=== PATIENT | female | born 1940 | race Caucasian/White ===

== ENCOUNTER 2017-12-04 14:00 | Outpatient (RCR) | payer MEDICARE, SELFPAY ==
--- NOTE | 2017-11-26 12:33 | HP.PTEVAL_ITS ---
Patient's Visit Information LEOLA STARK is a 77 year old F referred to Physical Therapy by DO EUGENE Thakkar with a diagnosis of L shoulder pain. Date of Evaluation: 11/26/17 Physical Therapist: Damion Hardin PT, - Visit Plan Frequency: 1x/Week Duration: 1 Week Plan: Issue HEP consisting of L shoulder rot cuff ex's and scap stab ex's - Subjective Subjective: Pt reports her L shoulder has been sore for several years. Pt reports Pain had an insidious onset in nature. Pt reports no T or N in L UE. Pt had an xray which revealed calcific tendonitis. Pt reports her pain was severe prior to having a cortisone injection 2 weeks ago, whiich made a huge improvement with her pain. Pt is L hand dominant. Pt reports she had diff with sleep secondary to pain prior to having cortisone injection. Pt reports she has diff with attempting to reach behind her back. 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 0/10 pain at rest, 2/10 pain at worst - Pain L shoulder Pain Intensity (Out of 10): 0 Pain Intensity Range: 2 - Objective Neuro: B UE sensation is WNL to light touch. B bicepital reflex= 1/3. Palpation : Pt is tender on distal third of supraspinatus. No obvious deformity present. ROM: R shoulder flex= 150, abd= 155, ER= 70, IR WNL; L shoulder flex= 145, abd= 125, ER= 60, IR WNL. MMT: L shoulder ER= 4-/5. All other B UE MMT= 5/5. Special test: no pos results this - Goals Goal 1:: I with HEP 1-2 visits Goal Time Frame: 1 Week - Rehabilitation Potential Physical Therapy Diagnosis: L shoulder pain and weakness secondary to L shoulder calcific tendonitis Rehabilitation Potential: Good - Anticipated Interventions Patient/Client Instruction: Educate patient on: Condition, Plan of Care For the Purpose of:: To improve self management Therapeutic Exercise to Include: Strength training, Endurance training, Body mechanics, Postural training, Scapular Strength/Stabilization For the Purpose of:: To decrease pain, To increase ROM, To improve muscle performance and motor function Cryotherapy (ice pack, ice massage): Yes For the Purpose of:: To decrease pain Thank you for the opportunity to evaluate your patient. For Medicare and Medicare HMO plans, please review the plan of care and approve it. It will need to be FAXED BACK to us at [phone] for Medicare purposes. Please let me know if there are questions or concerns regarding this plan of care. Physician Signature: Date:
--- NOTE | 2018-01-14 15:37 | HP.PT.NRP ---
HP - Discharge Summary (1) - Patient Information LEOLA STARK was seen in my office for initial evaluation on 11/26/17. The following Plan of Care was established for this patient: Initial Frequency: 1x/Week Initial Duration: 1 Week - Anticipated Interventions Patient/Client Instruction: Educate patient on: Condition, Plan of Care For the Purpose of:: To improve self management Therapeutic Exercise to Include: Strength training, Endurance training, Body mechanics, Postural training, Scapular Strength/Stabilization For the Purpose of:: To decrease pain, To increase ROM, To improve muscle performance and motor function Cryotherapy (ice pack, ice massage): Yes For the Purpose of:: To decrease pain This patient was last seen in our office . Pertinent comments regarding their Physical therapy will appear below: Pt was last treated on the date of 12/04/17 for her shoulder pain. Pt has not returned through todays date, and is therefore discontinued at this time. At this point I will be discontinuing this patient from physical therapy. I would be happy to see this patient again in the future if found appropriate by the physician. Thank you! Damion Hardin, PT,
== END 2017-12-04 19:00 | disposition home or self-care (01) ==
LOC: PT 14:00
PROVIDERS: Family Provider Family Medicine; PCP Family Medicine; Visit Provider Orthopaedic Surgery
DX: M75.32 Calcific tendinitis of left shoulder (principal); R30.0 Dysuria; R32 Unspecified urinary incontinence
CPT/HCPCS: 87086; 87088; 97161; 97530

== ENCOUNTER → 2017-12-04 15:35 | Outpatient (CLI) | payer MEDICARE, SELFPAY | PROVIDERS: Visit Provider Obstetrics & Gynecology | DX: R30.0 Dysuria (principal); R32 Unspecified urinary incontinence | CPT/HCPCS: 87086 ==

== ENCOUNTER → 2017-12-13 12:53 | Outpatient (CLI) | payer MEDICARE, SELFPAY ==
--- NOTE | 2017-12-13 12:55 | HPBI_ITS ---
MAMMOGRAPHY - BILATERAL SCREENING REASON FOR EXAM: Female, 77 years old. Routine annual screening examination. PERTINENT HISTORY: Remote right breast biopsy. TECHNIQUE: Digital bilateral breast zachariah (3D mammographic acquisition) in the CC and MLO projections. 2-D mediolateral oblique (MLO) and craniocaudad (CC) views of both breasts were obtained. CAD: Full Field Digital Mammography with Computer Added Detection was performed. COMPARISON: Comparison is made with prior study dated November 15, 2016 and October 19, 2015. FINDINGS: Breast Composition: There are scattered areas of fibroglandular density. There are no dominant masses or suspicious calcifications. Stable benign-appearing bilateral axillary lymph nodes. No other significant abnormalities are identified. There has been no significant change since the prior study. HPBI/SCREENING MAMM (CAD), BILAT IMPRESSION: Stable bilateral screening mammogram. Yearly follow-up mammogram recommended. (A) ASSESSMENT CATEGORY: BIRADS Category 2: Benign. A letter regarding these results will be sent to the patient by the facility within 30 days. Approximately 10% of breast cancers are not detected by mammography. A normal mammogram should not delay biopsy of a clinically suspicious abnormality. [id number] Electronically Signed: Brett Wells MD at 14:50 EST Tel [phone], Service support ,
== END ==
PROVIDERS: Family Provider Family Medicine; PCP Family Medicine; Visit Provider Obstetrics & Gynecology
DX: Z12.31 Encounter for screening mammogram for malignant neoplasm of breast (principal)
CPT/HCPCS: 77063; 77067

== ENCOUNTER → 2018-08-12 11:29 | Outpatient (CLI) | payer MEDICARE, SELFPAY ==
[2018-08-12 12:42] LABS: Ferritin 92 ng/mL (8-252); Iron 68 ug/dL (50-170); Iron Binding Capacity,Total 265 ug/dL (250-450); PERCENT IRON SATURATION 25.7 % (15.0-55.0)
== END ==
PROVIDERS: Family Provider Family Medicine; PCP Family Medicine; Referring Provider Psychiatry & Neurology Neurology; Visit Provider Psychiatry & Neurology Neurology
DX: E61.1 Iron deficiency (principal); G25.81 Restless legs syndrome; R53.83 Other fatigue
CPT/HCPCS: 36415; 82728; 83540; 83550

== ENCOUNTER → 2018-11-01 10:30 | Outpatient (CLI) | payer MEDICARE, SELFPAY ==
[2018-11-01 12:40] LABS: BUN 22 mg/dL (7-18); Creatinine, Serum 0.78 mg/dL (0.55-1.02); EST Glomerular Filtration Rate 76 mL/min (>60); Glucose 81 mg/dL (74-106)
[2018-11-01 12:41] LABS: ALB/GLOB Ratio 1.1 RATIO (0.9-2.4); AST(SGOT) 21 U/L (15-37); Absolute Lymphocyte Count 1.22 X10^3/ul (0.83-4.51); Absolute Neutrophil Count 1.8 X10^3/uL (2.0-7.7); Alanine Aminotransfer ALT/SGPT 41 U/L (13-56); Albumin, Serum 3.5 g/dL (3.2-5.0); Alkaline Phosphatase 59 U/L (45-117); Anion Gap 7 (5-15); BUN/Creat Ratio 28.2 RATIO (10-20); Basophil# 0.06 X10^3/uL; Basophil% 1.6 % (0-1); Chloride 105 mmol/L (98-107); Cholesterol 251 mg/dL (200); Eosinophils% 2.7 % (0-5); Est Glom Filt Rate - Afr Amer 92 mL/min (>60); Globulin 3.3 g/dL (2.2-4.2); Hematocrit 36.9 % (37-47); Hemoglobin 11.9 g/dl (12.0-15.0); High Density Lipoprotein 64 mg/dL; Lymphocyte # 1.22 X10^3/ul (4.0); Lymphocyte % 33.2 % (19-41); Mean Corp Hgb Conc 32.2 g/gl (32-36); Mean Corpuscular Hgb 31.1 pg (27.0-32.0); Mean Corpuscular Volume 96.3 fL (81-99); Mean Platelet Vol. 9.7 fl (6.2-12.0); Monocyte% 13.6 % (0-10); Neutrophil # 1.79 X10^3/uL (2.7-7.7); Neutrophil % 48.9 % (47-70); Platelet Count 255 K/mm3 (150-450); Potassium 4.4 mmol/L (3.5-5.1); Protein, Total 6.8 g/dL (6.4-8.2); RBC Distribution Width CV 13.2 % (11.6-14.6); RBC Distribution Width SD 46.2 fl (35.1-43.9); Red Blood Count 3.83 M/mm3 (4.2-5.4); Sodium Level 142 mmol/L (136-145); Triglycerides 95 mg/dL; Very Low Density Lipoprotein 19 mg/dL (5-40); White Blood Count 3.7 K/mm3 (4.4-11.0)
[2018-11-01 12:44] LABS: POSITIVE COUNT NO; POSITIVE DIFFERENTIAL NO; POSITIVE MORPHOLOGY NO
== END ==
PROVIDERS: Family Provider Family Medicine; PCP Family Medicine; Visit Provider Family Medicine
DX: I10 Essential (primary) hypertension (principal); E78.5 Hyperlipidemia, unspecified
CPT/HCPCS: 36415; 80053; 80061; 85025

== ENCOUNTER → 2019-01-08 10:08 | Outpatient (CLI) | payer MEDICARE, SELFPAY ==
--- NOTE | 2019-01-08 10:09 | RAD_ITS ---
STUDY: X-RAY - LEFT HIP and one view pelvis REASON FOR EXAM: Female, 78 years old. Pain TECHNIQUE: 2 views of the hip and one view pelvis. COMPARISON: None. FINDINGS: Normal femoral head, neck, intertrochanteric region and visualized proximal femur. Normal acetabulum. Normal hip joint. Normal visualized superior and inferior pubic rami and ischial tuberosities. RAD/HIP, UNI W/ Pelvis 2-3 Views IMPRESSION: Normal x-ray examination of the hip and pelvis. Electronically Signed: Andrew Diaz MD at 15:13 EDT Tel , Service support ,
== END ==
PROVIDERS: Family Provider Family Medicine; PCP Family Medicine; Referring Provider Physician Assistant; Visit Provider Physician Assistant
DX: M25.552 Pain in left hip (principal)
CPT/HCPCS: 73502

== ENCOUNTER → 2019-01-14 14:38 | Outpatient (CLI) | payer MEDICARE, SELFPAY ==
--- NOTE | 2019-01-14 14:42 | BI_ITS ---
MAMMOGRAPHY - BILATERAL SCREENING 3-D MURTAZA SYNTHESIS REASON FOR EXAM: Female, 78 years old. Bilateral Screening 3-D tomosynthesis PERTINENT HISTORY: History of benign right breast biopsy at least 15 years ago. TECHNIQUE: 2-D mammograms and 3-D Murtaza synthesis of the breast (s) were performed. CAD was performed. COMPARISON: December 13, 2017, November 15, 2016 FINDINGS: The breast composition is almost entirely fat. Scattered benign calcifications are stable. There are stable normal-appearing lymph nodes. No dense spiculated masses or suspicious microcalcifications are identified. No architectural distortion is identified. There is no skin thickening or retraction. There has been no significant change since the prior study. BI/SCREENING MAMM (CAD), BILAT IMPRESSION: No mammographic signs of malignancy. Routine yearly mammograms recommended. ASSESSMENT CATEGORY: BIRADS Category 2: Benign. A letter regarding these results will be sent to the patient by the facility within 30 days. FOLLOW UP RECOMMENDATION: Yearly follow up mammogram recommended. (A) Approximately 10% of breast cancers are not detected by mammography. A normal mammogram should not delay biopsy of a clinically suspicious abnormality. Electronically Signed: Tej Caro MD at 12:44 EDT , Service support ,
--- NOTE | 2019-01-14 14:47 | BD_ITS ---
STUDY: DUAL ENERGY X-RAY ABSORPTIOMETRY / DXA REASON FOR EXAM: Female, 78 years old. The patient is postmenopausal. Loss of height. TECHNIQUE: Bone Mineral Density (BMD) measurements of lumbar spine and bilateral hips were obtained. COMPARISON: Comparison is made with prior study dated October 19, 2015. FINDINGS: Lumbar Spine (L1-L4): g/cm2 (1.101) / T-score (-0.7) / Z-score (1.1) Findings are suggestive of normal bone density with a low fracture risk. Left Femur Total: g/cm2 (0.919) / T-score (-0.7) / Z-score (1.1) Left Femoral Neck: g/cm2 (0.843) / T-score (-1.4) / Z-score (0.6) Right Femur Total: g/cm2 (0.924) / T-score (-0.7) / Z-score (1.2) Right Femoral Neck: g/cm2 (0.822) / T-score (-1.6) / Z-score (0.4) The T-Scores on the most recent prior examination were: Lumbar Spine (L1-L4): There has been improvement of bone density since the previous examination. Left Femur Total: which represents a worsening of 5.8%. Right Femur Total: which represents a worsening of 5.4%. BD/Dexa Bone Density Study IMPRESSION: The patient is considered osteopenic as outlined below according to World Pritesh Organization (WHO) criteria with a moderate fracture risk. There has been worsening of bone density since the previous examination. Reference Information: The T-score is the number of standard deviations above or below the standard which is normal for young adults at their peak bone mineral density. The World Health Organization (WHO) interprets the T-scores as follows: Above -1 Normal bone density Between -1 and -2.5 Osteopenia Equal to / or below -2.5 Osteoporosis As a practical clinical guideline, osteopenia may be graded as follows: Mild -1 through -1.5 Moderate -1.6 through -2.0 Severe -2.1 through -2.4 The Z-score is the number of standard deviations above or below age-matched controls. A Z-score of less than -1.5 would be considered abnormal. References: 1. NIH Osteoporosis and Related Bone Diseases http://www.osteo.org 2. International Society for Clinical Densitometry http://www.iscd.org 3. National Osteoporosis Foundation http://www.nof.org Electronically Signed: Brett Wells, at 10:37 EDT , Service support ,
== END ==
PROVIDERS: Family Provider Family Medicine; PCP Family Medicine; Referring Provider Obstetrics & Gynecology; Visit Provider Obstetrics & Gynecology
DX: Z12.31 Encounter for screening mammogram for malignant neoplasm of breast (principal); Z78.0 Asymptomatic menopausal state; Z13.820 Encounter for screening for osteoporosis
CPT/HCPCS: 77063; 77067; 77080

== ENCOUNTER → 2019-01-29 06:34 | Outpatient (CLI) | payer MEDICARE, SELFPAY ==
--- NOTE | 2019-01-29 10:34 | NEURO ---
NCS and/or EMG Patient Report Ordering Doctor: Alessandro English DATE OF SERVICE: 01/29/19 Is a left upper extremity EMG and nerve conduction study performed on this 78-year-old female with a history of abnormal sensations in her left fourth and fifth digits. She is healthy otherwise without a history of diabetes or neck pain. Left upper extremity sensory and motor nerve conduction studies performed. The median motor and sensory distal latencies are mild to moderately prolonged with preservation of amplitude and mild reduction in conduction velocity. The ulnar motor amplitude across the elbow is moderate to severely reduced with moderate to severe reduction in conduction velocity across the elbow. Radial sensory responses are normal. The median and ulnar F-wave latencies are mildly prolonged. Left upper extremity needle electromyography is performed. Muscles evaluated included the first dorsal interosseous, abductor pollicis brevis, brachioradialis, biceps, triceps and deltoid muscles. The left abductor pollicis brevis muscle did demonstrate mild increase in insertional activity and mild increase in motor unit amplitude as well as early recruitment. The left first dorsal interosseous muscle did also demonstrate increased insertional activity with 2+ fibrillation potentials and large motor units. All other muscles more approximately demonstrated normal insertional activity with absence of pathologic spontaneous activity, normal motor unit recruitment pattern and amplitude was detected otherwise. 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 2 mild to moderate apparently asymptomatic median neuropathy at the left wrist.
== END ==
PROVIDERS: Family Provider Family Medicine; PCP Family Medicine; Referring Provider Physician Assistant; Visit Provider Physician Assistant
DX: R20.0 Anesthesia of skin (principal)
CPT/HCPCS: 95886; 95910

== ENCOUNTER 2019-06-16 12:30 | Outpatient (RCR) | payer MEDICARE, SELFPAY ==
--- NOTE | 2019-06-16 11:31 | HP.PTEVAL_ITS ---
Patient's Visit Information LEOLA STARK is a 78 year old F referred to Physical Therapy by SUSY Sunshine with a diagnosis of L hip OA, piriformis syndrome. Date of Evaluation: 06/16/19 Physical Therapist: Bandar Campbell DPT - Visit Plan Frequency: 2x /Week Duration: 4-6 Weeks Plan: Start with HS, piriformis, IT band stretching (non painful). Add in US to piriformis region progress to core/hip stability exercises as tolerated. - Subjective Findings: Pt. is here today for her initial evaluation with diagnosis of L hip OA and piriformis syndrome. Pt. reports having pain on and off for years. She had an injection last year which did well. Pt. denies N/T in either LE. Pt. reports increased pain with walking and bending to potato picker objects. Pt. reports not doing any exercises at home. Pt. does have pain that goes down her whole leg at times It a dull ache. She has increased pain with steps, doing 1 step at a time. Pt. complains of increased pain, and increased stiffness as tiomes. Pt. is hopeful to reduce her symptoms in order to get back to all recreational activtiies without limiations. - Pain L hip Pain Intensity (Out of 10): 2 Pain Intensity Range: 0, 4 L LE Pain Intensity (Out of 10): 2 Pain Intensity Range: 1, 6 - Objective POSTURE: Pt. has normal postre in stance. Pt. has normal wt. shift between bilaterall LEs. Pt. has general sligth flexion in stance. PALPATION: Pt. has increased tenderness at L greater trochanter, and piriformis muscle belly. Pt. has no pain in her LLE distally. NEURO: normal throughout. ROM: LUMBAR SPINE: flexion min loss increase NW, ext mod loss increase NW, SB min loss bilat NE, rotaiton min loss bilat NE. Pt. has tight hip IR, IT band and HS bilaterally. MMT: pt. has general 4/5 strength throughout bilateral LEs. Pt. reports no major issues with MMT. GAIT: Pt ambulates with slight antaligic pattern on LLE stance phase. Pt. is able to complete stairs wtih step to pattern, increased pain with recirpocal pattern. Pt. uses 2 HR to complete. - Goals Goal 1:: Pt. to be I with HEP. Goal Time Frame: 4-6 Weeks Goal 2:: Pt. to have icnreased L hip ROM to full wthout increase in symptoms. Goal Time Frame: 4-6 Weeks Goal 3:: Pt. to have increased Left piriformis length, HS legnth and IT band length symmetrical to Right LE. Goal Time Frame: 4-6 Weeks Goal 4:: pt. to ambulate unlmited distances without increase in symptoms. Goal Time Frame: 4-6 Weeks Goal 5:: Pt. to negotiate steps without increase in symptoms allowing for increased quality of life. Goal Time Frame: 4-6 Weeks - Rehabilitation Potential Physical Therapy Diagnosis: Pt. has signs and symptoms consistent with L hip OA and piriformis syndrome. Pt. is stiff and weak in BLEs. Pt .would benefit from PT to icnrease strength and increased ROM of LLE mostly of her hip. Rehabilitation Potential: Good - Anticipated Interventions Patient/Client Instruction: Educate patient on: Condition, Plan of Care, Risk Factors, Benefits of Fitness Program For the Purpose of:: To foster healthy habits, To improve decision making, To facilitate caregiver knowledge, To improve self management, To prevent re- injury, To improve ability to perform tasks related to life management, To improve tolerance to ADL's Therapeutic Exercise to Include: Strength training, Power training, Endurance training, Balance training, Body mechanics, Postural training, Flexibilty training, Passive ROM, Active ROM, Dynamic Lumbar Stabilization For the Purpose of:: To decrease pain, To decrease swelling/inflammation, To increase ROM, To improve nutrient delivery to tissue, To increase oxygenation perfusion, To improve muscle performance and motor function, To improve ability to perform ADL's, To improve gait and locomotor functions, To improve health of tissue, To decrease soft tissue restriction, To increase flexibility/ROM, To improve endurance Manual Therapy Techniques to Include: Mobilization, Passive ROM, Functional dry needling, Soft tissue mobilization For the Purpose of:: To decrease pain, To decrease swelling/inflammation, To increase ROM, To improve nutrient delivery to tissue Cryotherapy (ice pack, ice massage): Yes Thermo therapy (hot pack): Yes Ultrasound (thermal/non thermal): Yes For the Purpose of:: To decrease swelling/inflammation, To increase ROM, To improve nutrient delivery to tissue, To increase oxygenation perfusion Thank you for the opportunity to evaluate your patient. For Medicare and Medicare HMO plans, please review the plan of care and approve it. It will need to be FAXED BACK to us at [phone] for Medicare purposes. For Medicare only, by signing this I certify the plan of care. Please let me know if there are questions or concerns regarding this plan of care. Physician Signature: Date:
--- NOTE | 2019-12-01 09:14 | HP.PTDCNRP_ITS ---
HP - Discharge Summary (1) - Patient Information LEOLA STAKR was seen in my office for initial evaluation on 06/02/19. The following Plan of Care was established for this patient: Initial Frequency: 2x /Week Initial Duration: 4-6 Weeks - Anticipated Interventions Patient/Client Instruction: Educate patient on: Condition, Plan of Care, Risk Factors, Benefits of Fitness Program For the Purpose of:: To foster healthy habits, To improve decision making, To facilitate caregiver knowledge, To improve self management, To prevent re- injury, To improve ability to perform tasks related to life management, To improve tolerance to ADL's Therapeutic Exercise to Include: Strength training, Power training, Endurance training, Balance training, Body mechanics, Postural training, Flexibilty traini ng, Passive ROM, Active ROM, Dynamic Lumbar Stabilization For the Purpose of:: To decrease pain, To decrease swelling/inflammation, To increase ROM, To improve nutrient delivery to tissue, To increase oxygenation perfusion, To improve muscle performance and motor function, To improve ability to perform ADL's, To improve gait and locomotor functions, To improve health of tissue, To decrease soft tissue restriction, To increase flexibility/ROM, To improve endurance Manual Therapy Techniques to Include: Mobilization, Passive ROM, Functional dry needling, Soft tissue mobilization For the Purpose of:: To decrease pain, To decrease swelling/inflammation, To increase ROM, To improve nutrient delivery to tissue Cryotherapy (ice pack, ice massage): Yes Thermo therapy (hot pack): Yes Ultrasound (thermal/non thermal): Yes For the Purpose of:: To decrease swelling/inflammation, To increase ROM, To improve nutrient delivery to tissue, To increase oxygenation perfusion This patient was last seen in our office 06/16/19. Pertinent comments regarding their Physical therapy will appear below: PT. was seen her her L hip pain. Pt. was doing well. Pt. has not been seen in several months and will be DC from PT at this point in time. At this point I will be discontinuing this patient from physical therapy. I would be happy to see this patient again in the future if found appropriate by the physician. Thank you! Bandar Campbell, JULIAT
== END 2019-06-16 19:00 | disposition home or self-care (01) ==
LOC: PT 12:30
PROVIDERS: Family Provider Family Medicine; PCP Family Medicine; Referring Provider Physician Assistant; Visit Provider Physician Assistant
DX: M16.12 Unilateral primary osteoarthritis, left hip (principal); G57.02 Lesion of sciatic nerve, left lower limb
CPT/HCPCS: 97110; 97161

== ENCOUNTER → 2019-07-03 13:15 | Outpatient (CLI) | payer MEDICARE, SELFPAY ==
[2019-07-03 12:54] VITALS: BMI 26.1
--- NOTE | 2019-07-03 13:17 | RAD_ITS ---
STUDY: X-RAY - LUMBAR SPINE REASON FOR EXAM: Female, 79 years old. Back pain. TECHNIQUE: 5 view(s) of the lumbar spine were obtained. COMPARISON: None FINDINGS: Generalized osteopenia. Normal lumbar lordosis. There is no substantial scoliosis. There is a normal alignment of the vertebrae. Normal vertebral bodies and endplates. Mild intervertebral disc space narrowing in the lower thoracic and upper lumbar spine. Minimal generalized facet sclerosis. The soft tissue structures are unremarkable. RAD/L/S Spine Min 4 Views IMPRESSION: Osteopenia with mild lower thoracic and upper lumbar spondylosis. No acute finding. Electronically Signed: Tej Caor MD at 13:37 EDT , Service support ,
== END ==
PROVIDERS: Family Provider Family Medicine; PCP Family Medicine; Referring Provider Orthopaedic Surgery; Visit Provider Orthopaedic Surgery
DX: M25.552 Pain in left hip (principal)
CPT/HCPCS: 72110

== ENCOUNTER → 2019-07-15 13:58 | Outpatient (CLI) | payer MEDICARE, SELFPAY ==
[2019-07-15 13:46] VITALS: BMI 26.1
--- NOTE | 2019-07-15 14:00 | RAD_ITS ---
STUDY: X-RAY - LEFT HAND REASON FOR EXAM: Trigger middle finger. TECHNIQUE: 3 view(s) of the hand. COMPARISON: None. FINDINGS: There is osteopenia. Normal radiocarpal articulation. Normal distal radioulnar joint. Normal visualized carpal bones. Normal carpal articulations There is moderate to severe joint space narrowing of the carpometacarpal articulation of the thumb. Normal second through fifth carpometacarpal joints. Normal metacarpi. Normal metacarpophalangeal joint of the thumb. There is mild space narrowing of the interphalangeal joint of the thumb. Normal proximal and distal phalanges of the thumb. Normal metacarpophalangeal joints of the second through fifth fingers. There is mild space narrowing of the distal interphalangeal joints of the second through fifth fingers and third and fourth proximal interphalangeal joints. Normal phalanges of the second through fifth fingers. The soft tissue structures are unremarkable. RAD/Hand Min 3 Views IMPRESSION: Osteoarthritis. Electronically Signed: Laron Martin MD at 13:14 EDT Tel , Service support ,
== END ==
PROVIDERS: Family Provider Family Medicine; PCP Family Medicine; Referring Provider Orthopaedic Surgery; Visit Provider Orthopaedic Surgery
DX: M79.645 Pain in left finger(s) (principal)
CPT/HCPCS: 73130

== ENCOUNTER 2019-07-23 06:58 | Day surgery (SDC) | payer MEDICARE, SELFPAY ==
[2019-07-15 13:46] VITALS: BMI 26.1
--- NOTE | 2019-07-18 10:51 | HP_ITS ---
I have re-examined the patient. There are no clinical changes since date of exam. Intake Vital Signs 07/15/19 Body Mass Index (BMI) 26.1 Intake Visit Reasons: Lt hand/lt shoulder Allergies No Known Allergies Allergy (Verified 11/28/18 11:28) Medications lisinopril 5 mg tablet 5 mg PO DAILY #90 tab 07/03/19 [History Confirmed 07/18/19] Amitriptyline HCl [Elavil] 25 mg PO QHS 07/18/19 [History Confirmed 07/18/19] Biotin 3 mg PO BID 07/18/19 [History Confirmed 07/18/19] Calcium Carbonate/Vitamin D3 [Calcium 600 + Vit D 400 Tablet] 1 ea PO DAILY 07/18/19 [History Confirmed 07/18/19] Ezetimibe [Zetia] 10 mg PO DAILY 07/18/19 [History Confirmed 07/18/19] Mv-Min/Iron/Folic/Calcium/Vitk [Women's Daily Formula Tablet] 1 ea PO DAILY 07/18/19 [History Confirmed 07/18/19] Pramipexole Di-HCl [Pramipexole Dihydrochloride] 0.25 mg PO QHS 07/18/19 [History Confirmed 07/18/19] Sumatriptan Succinate [Imitrex] 50 mg PO PRN PRN 07/18/19 [History Confirmed 07/18/19] Turmeric Root Extract [Turmeric] 500 mg PO DAILY 07/18/19 [History Confirmed 07/18/19] PFSH Medical History (Updated 11/06/17 @ 09:11 by Dawn Carreon) Back problem (Acute) Arthritis (Chronic) Hyperlipidemia (Chronic) Hypertension (Chronic) Migraines (Chronic) Osteopenia (Chronic) Seasonal allergies (Chronic) Surgical History (Updated 11/06/17 @ 09:12 by Dawn Carreon) H/O breast biopsy (Inactive) H/O tubal ligation (Inactive) S/P LEEP (loop electrosurgical excision procedure) (Inactive) Family History (Updated 11/06/17 @ 09:13 by Dawn Carreon) Father Myocardial infarction Brother Pancreatic cancer Sister Lung cancer Social History (Updated 07/18/19 @ 10:51 by Talita Pinto DO) Smoking Status: Never smoker HPI Lt hand/lt shoulder: Surgical H&P: Yes Details: Parts of this documentation were recorded by a scribe, this documentation accurately reflects the service provided and the decisions made by me, Talita Pinto DO 07/15/19 [id number]. LEOLA STARK is a 79 year old F here today for left shoulder and left middle finger pain. Patient has had a steroid injection in 10/2018 and states this was effective for about 8 months and she wishes to have another left subacromial injection. Denies numbness, tingling or other associated symptoms. Patient has locking and triggering of her left middle finger. Patient denies any previous tx for her finger today. ROS Const Reports system reviewed and no additional complaints, except as docu Eyes Reports system reviewed and no additional complaints, except as docu ENT Reports system reviewed and no additional complaints, except as docu Card Reports system reviewed and no additional complaints, except as docu Resp Reports system reviewed and no additional complaints, except as docu GI Reports system reviewed and no additional complaints, except as docu Musc Reports as per HPI Skin/Breast Reports system reviewed and no additional complaints, except as docu Neuro Yes system reviewed and no additional complaints, except as docu Psych Reports system reviewed and no additional complaints, except as docu Endo Reports system reviewed and no additional complaints, except as docu Bulmaro/Lymph Reports system reviewed and no additional complaints, except as docu Aller/Immun Reports system reviewed and no additional complaints, except as docu Ortho Exam Right Wrist/Hand Skin/Wound: Yes Swelling Left Wrist/Hand Skin/Wound: Yes Swelling A1 funmi trigger: Yes Left Shoulder Testing: Yes Hawkin's, No AROM-Forward Elevation 0-180, No AROM-External Rotation at side 0-60 No rales rhonchi or wheezing, no abdominal pain, no audible bruits Office Procedures Kenalog 40 mg/mL suspension for injection (triamcinolone acetonide) 80 mg intra- articular ONCE Injections Yes Subacromial Injection Left Details: Obtained consent for injection. Under sterile conditions, injected the patients left subacromial injection with a 10cc cocktail of 8cc bupivacaine and 2cc kenalog. The patient tolerated the injection well without any noted complication. Patient should call our office if redness develops, pain worsens or if they have any concerns. Office Meds Kenalog Performing Provider: Talita Pinto DO Administered by: Theo Hernández on 07/15/19 14:20 Dose Route Admin Location Lot Number Expiration Date NDC [employer] 80 mg intra-articular left subacromial jt [id number] 12/28/19 0490-0941-07 [facility] Assessment & Plan Problems 1. Trigger finger, left middle finger M65.332 2. Impingement syndrome, shoulder, left M75.42 Plan X-rays were reviewed. There is no obvious fracture, dislocation, or lucency noted. Explained that she has a trigger finger of the left middle finger and now has limited rom of the finger, her best treatment option is an A1 funmi release. Reviewed the risks and benefits of steroid injection and patient elects to proceed for the left shoulder as well as she continues to have relief with conservative care. Reviewed the pre-operative plans with the patient. Risks and benefits of the procedure were fully explained, including but not limited to infection, neurovascular injury, continued pain, arthritis, stiffness, need for further surgery, re-injury, DVT, PE, general risks of anesthesia, and loss of limb or life. The patient understands all the risks and does wish to proceed with written consent. Follow up postop or sooner if pain, swelling, numbness or associated symptoms, or concerns develop. All questions answered. Patient in agreement of plan. Orders Orders: Ortho Injections 07/15/19 M65.332 Hand Min 3 Views 07/15/19 M79.645 Medications Discontinued: Kenalog (triamcinolone acetonide) Discontinued Reason: Office Medication has been Documented as given 80 mg (2 mL) intra-articular ONCE 2 mL 0RF NS M65.332 Coding Level of Care Code Off vis,est,level 4 Diagnoses Trigger finger, left middle finger M65.332 Impingement syndrome, shoulder, left M75.42 Additional Codes oven loader.sub ([id number]) 07/18/19 1051 <Electronically signed by Talita sky DO> Date _ Talita Pinto DO
[2019-07-23 07:28] VITALS: BP 125/69; PULSE 83; RESP 16; O2SAT 100; BMI 27.4
[2019-07-23] MEDS: Lactated Ringers 1,000 ML 100 ML IV (07:39)
[2019-07-23] MEDS: Cefazolin 2 GM in 0.9% Normal Saline 100 ML IV (08:32)
[2019-07-23] MEDS: Mupirocin Ointment 22gm Tube 1 APPLIC (08:56)
[2019-07-23 09:11] VITALS: BP 125/69; BP 128/69; PULSE 78; RESP 16; TEMP 36.1; O2SAT 99
[2019-07-23 09:15] VITALS: BP 125/69; BP 134/69; PULSE 80; RESP 16; O2SAT 99
[2019-07-23 09:20] VITALS: BP 125/69; BP 130/83; PULSE 72; RESP 16; O2SAT 99
[2019-07-23 09:25] VITALS: BP 125/69; BP 132/70; PULSE 70; RESP 16; TEMP 36.4; O2SAT 100
--- NOTE | 2019-07-23 09:42 | DCINST_ITS ---
Discharge Diet: No Restrictions - may drive, keep incision cdi, Discharge Activity: May Drive - keep incision clean and dry, may use hand as tolerated. follow up in 2 weeks, call with concerns May shower in (days): 1 Ice area for (Minutes): 20 - Every hour while awake. Weight Bearing Status: Weight bearing as tolerated Keep extremity elevated above heart level: Operative Extremity Call your doctor if your incision/area has: Continuous Slow Oozing, Sudden Increased Bleeding, Increased Pain/ Swelling, Increased Redness, Foul Smelling Discharge Call your doctor if you observe: Fever of 101 or Higher, Coldness, Increased Pain, Numbness or Tingling, Change in Color, Calf discomfort Allergies/Adverse Reactions: Allergies No Known Allergies Allergy (Verified 11/28/18 11:28) Medications to take at Discharge lisinopril 5 mg tablet 5 mg PO DAILY #90 tab 07/03/19 Amitriptyline HCl [Elavil] 25 mg PO QHS 07/18/19 Biotin 3 mg PO BID 07/18/19 Calcium Carbonate/Vitamin D3 [Calcium 600 + Vit D 400 Tablet] 1 ea PO DAILY 07/18/19 Ezetimibe [Zetia] 10 mg PO DAILY 07/18/19 Mv-Min/Iron/Folic/Calcium/Vitk [Women's Daily Formula Tablet] 1 ea PO DAILY 07/18/19 Pramipexole Di-HCl [Pramipexole Dihydrochloride] 0.25 mg PO QHS 07/18/19 Sumatriptan Succinate [Imitrex] 50 mg PO PRN PRN 07/18/19 Turmeric Root Extract [Turmeric] 500 mg PO DAILY 07/18/19 Primary Care Physician: Carlos Tse DO [Primary Care Provider] - Test Results: Test results from this visit will be discussed in further detail at your follow- up appointment, if applicable. Please Follow Up With: Talita Pinto DO - [phone]
--- NOTE | 2019-07-23 09:43 | OP.PCM_ITS ---
Report of Operation Date of Procedure: 07/23/19 Pre-Operative Diagnosis: left middle trigger finger Post-Operative Diagnosis: same Surgery/Procedure Performed:: left middle finger a1 funmi release Type of Anesthesia:: Fred Paez Anesthesiologist: Michele Bolden Fluids Replaced: 500cc lr Description of Procedure: Preop note Next Patient is a 79-year-old male with continued triggering of her right middle finger. X-rays negative. Patient risk benefits and alternatives were discussed with patient and family. Risks including but not limited to blood loss, blood clot, infection, neurovascular, failure procedure, loss of life and loss of limb. Patient is aware like proceed with right middle finger A1 funmi release. Operative note Patient seen and examined preoperative he will holding area. Right hand was marked. Patient brought to the operating placed supine on the operating table. Signed, anesthesia, antibiotics were public relations account executive.. Your block was initiated. We then marked out our incision for A1 funmi release of the MP joint of the left middle finger. Timeout was performed. The block was working in the mid fifth incision with a 15 blade down to the skin subcuticular layer with tenotomies in the level of the A1 funmi which was released entirely proximally distally we then brought the tendon out of the incision and flex and extend in the tendon to ensure that there was no further catching which there was not. We then irrigated the incision with copious muscle sterile saline the incision was closed with interrupted 4-0 nylon stitches sterile dressings were applied. Tourniquet was deflated for a total working time of 5 minutes. Patient tolerated procedure well there were no complication transferred recovery room in stable condition next Postoperative note Keep incision clean dry and intact next Follow-up in 2 weeks Call with increased pain numbness tingling of the issues arises Valeria disclaimer
[2019-07-23 10:02] VITALS: BP 125/69
== END 2019-07-23 10:14 | disposition home or self-care (01) ==
LOC: SDC 06:59 → AC 07:00
PROVIDERS: Family Provider Family Medicine; PCP Family Medicine; Referring Provider Orthopaedic Surgery; Visit Provider Orthopaedic Surgery
PROC: (CPT 26055; principal; 2019-07-23 08:40)
DX: M65.332 Trigger finger, left middle finger (principal); M75.42 Impingement syndrome of left shoulder; E78.5 Hyperlipidemia, unspecified; I10 Essential (primary) hypertension; M85.80 Other specified disorders of bone density and structure, unspecified site; M19.90 Unspecified osteoarthritis, unspecified site; G43.909 Migraine, unspecified, not intractable, without status migrainosus
CPT/HCPCS: 01810; 26055; J7120; J2405

== ENCOUNTER → 2019-12-11 12:44 | Outpatient (CLI) | payer MEDICARE, SELFPAY ==
[2019-12-11 12:38] VITALS: BMI 27.4
--- NOTE | 2019-12-11 12:45 | RAD_ITS ---
STUDY: X-RAY - CERVICAL SPINE REASON FOR EXAM: Female, 79 years old. Neck pain. TECHNIQUE: 5 view(s) of the cervical spine were obtained. COMPARISON: None FINDINGS: Generalized osteopenia. Normal anterior atlantoaxial articulation. Normal odontoid process. Increased lordosis. Normal vertebral bodies and endplates. Intervertebral disc space narrowing at C4-5, C5-6 and C6-7 with small osteophytes. Minimal anterior bony neural foraminal encroachment at C4-5 and C5-6 bilaterally. Diffuse uncovertebral and facet sclerosis. The soft tissue structures are unremarkable. RAD/Cerv Spine 4 or 5 Views IMPRESSION: Osteopenia with cervical spondylosis as described. No acute finding. Electronically Signed: Tej Caro MD at 19:15 EST , Service support ,
--- NOTE | 2019-12-11 12:45 | RAD_ITS ---
STUDY: X-RAY - LEFT HUMERUS REASON FOR EXAM: Female, 79 years old. Pain in mid humerus radiating to shoulder. TECHNIQUE: 2 view(s) of the humerus. COMPARISON: None. FINDINGS: Generalized osteopenia. Normal visualized humerus. Mild arthrosis of the glenohumeral joint. Arthrosis of the acromioclavicular joint. There is no demonstrated soft tissue abnormality. RAD/Humerus min 2 Views IMPRESSION: Osteopenia with osteoarthritic changes. No acute finding. Electronically Signed: Tej Caro MD at 19:17 EST , Service support ,
== END ==
PROVIDERS: PCP Family Medicine; Referring Provider Orthopaedic Surgery; Visit Provider Orthopaedic Surgery
DX: M54.2 Cervicalgia (principal); M79.602 Pain in left arm
CPT/HCPCS: 72050; 73060

== ENCOUNTER → 2019-12-29 16:30 | Outpatient (CLI) | payer MEDICARE, SELFPAY ==
[2019-12-11 12:38] VITALS: BMI 27.4
--- NOTE | 2019-12-29 16:31 | MRI_ITS ---
STUDY: MRI LEFT SHOULDER REASON FOR EXAM: Left shoulder pain, decreased strength and limited range of motion for 6 weeks, no specific injury. TECHNIQUE: Standardized fat and water weighted pulse sequences were obtained in all 3 orthogonal planes. COMPARISON: Radiographs of the humerus with 12/11/2019 and shoulder 12/28/2016. FINDINGS: There is a full-thickness tear of the supraspinatus and infraspinatus tendons retracted approximately 2.3 cm to the level of the acromioclavicular joint (T2 coronal images 6-13). There is mild subscapularis tendinosis (proton density axial image 12). Normal teres minor tendon. There is atrophy with partial fat replacement of the supraspinatus muscle (T2 axial image 4). There is atrophy with partial fat replacement of the infraspinatus muscle (T2 axial image 12). Normal subscapularis muscle. Normal teres minor muscle. Normal glenohumeral articulation. There is mild superior migration humeral head secondary to the retracted rotator cuff tear. There is a small bone contusion of the inferior medial aspect of the humeral head (T2 coronal images 10, 11). Normal biceps labral complex. Normal intracapsular long biceps tendon. Normal labrum. Normal capsulo- ligamentous complex. There is acromioclavicular arthrosis with capsular thickening (T2 sagittal image 9). There is a Type II morphology (curved), with a neutral orientation. There is a small volume of subacromial-subdeltoid bursal fluid. Normal visualized coracohumeral and coracoacromial ligaments. Normal deltoid muscle. Normal trapezius muscle. MRI/Upper Ext Joint Only(Routine) IMPRESSION: Full-thickness tear of the supraspinatus and infraspinatus tendons. Mild subscapularis tendinosis. Atrophy of the supraspinatus and infraspinatus muscles. Small bone contusion of the humeral head. Acromioclavicular arthrosis. Small volume of subacromial-subdeltoid bursal fluid. Electronically Signed: Laron Martin MD at 10:24 EST Tel , Service support ,
== END ==
PROVIDERS: PCP Family Medicine; Referring Provider Orthopaedic Surgery; Visit Provider Orthopaedic Surgery
DX: M75.32 Calcific tendinitis of left shoulder (principal)
CPT/HCPCS: 73221

== ENCOUNTER → 2020-03-29 10:16 | Outpatient (CLI) | payer MEDICARE, SELFPAY ==
[2020-01-01 15:10] VITALS: BMI 27.4
[2020-03-29 12:29] LABS: Absolute Lymphocyte Count 1.47 X10^3/uL (0.83-4.51); Absolute Neutrophil Count 3.4 X10^3/uL (2.0-7.7); Basophil# 0.07 X10^3/uL; Basophil% 1.2 % (0-1); Eosinophil# 0.25 X10^3/uL; Eosinophils% 4.3 % (0-5); Hematocrit 35.3 % (37-47); Hemoglobin 11.5 g/dL (12.0-15.0); Lymphocyte # 1.47 X10^3/ul (4.0); Lymphocyte % 25.3 % (19-41); Mean Corp Hgb Conc 32.6 g/dL (32-36); Mean Corpuscular Hgb 31.7 pg (27.0-32.0); Mean Corpuscular Volume 97.2 fL (81-99); Monocyte# 0.56 X10^3/uL; Monocyte% 9.6 % (0-10); NRBC Flagged by Analyzer 0 % (0-5); Neutrophil # 3.44 X10^3/uL (2.7-7.7); Neutrophil % 59.3 % (47-70); Platelet Count 304 K/mm3 (150-450); RBC Distribution Width CV 12.8 % (11.6-14.6); RBC Distribution Width SD 45.3 fl (35.1-43.9); Red Blood Count 3.63 M/mm3 (4.2-5.4); White Blood Count 5.8 K/mm3 (4.4-11.0)
[2020-03-29 13:22] LABS: ALB/GLOB Ratio 0.9 RATIO (0.9-2.4); AST(SGOT) 35 U/L (15-37); Alanine Aminotransfer ALT/SGPT 56 U/L (13-56); Albumin, Serum 3.4 g/dL (3.2-5.0); Alkaline Phosphatase 102 U/L (45-117); Anion Gap 6 (5-15); BUN 14 mg/dL (7-18); Calcium,Total 9.2 mg/dL (8.5-10.1); Chloride 105 mmol/L (98-107); Cholesterol 220 mg/dL (200); Creatinine, Serum 0.74 mg/dL (0.55-1.02); EST Glomerular Filtration Rate 81 mL/min (>60); Est Glom Filt Rate - Afr Amer 98 mL/min (>60); Globulin 3.9 g/dL (2.2-4.2); Glucose 89 mg/dL (74-106); High Density Lipoprotein 53 mg/dL; Potassium 3.8 mmol/L (3.5-5.1); Protein, Total 7.3 g/dL (6.4-8.2); Sodium Level 139 mmol/L (136-145); Triglycerides 146 mg/dL; Very Low Density Lipoprotein 29 mg/dL (5-40)
== END ==
PROVIDERS: PCP Family Medicine; Visit Provider Family Medicine
DX: I10 Essential (primary) hypertension (principal); E78.5 Hyperlipidemia, unspecified; Z78.9 Other specified health status
CPT/HCPCS: 36415; 80053; 80061; 85025

== ENCOUNTER → 2020-04-13 10:08 | Outpatient (CLI) | payer MEDICARE, SELFPAY ==
[2020-01-01 15:10] VITALS: BMI 27.4
--- NOTE | 2020-04-13 10:09 | MRI_ITS ---
STUDY: MRI UPPER EXTREMITY LEFT HUMERUS WITHOUT CONTRAST REASON FOR EXAM: Left humeral pain, especially lateral and posterior with movement. TECHNIQUE: Standardized fat and water weighted pulse sequences were obtained in all 3 orthogonal planes. COMPARISON: MRI images of the shoulder 12/29/2019 and radiographs 12/11/2019. FINDINGS: There is edema in the subcutis adipose space posterior to the olecranon (inversion recovery axial images 43, 44). There is no demonstrated solid, cystic, or lipomatous mass within the subcutaneous adipose space. Normal visualized muscles and fascia of the upper arm. Normal visualized neurovascular bundles. Normal humerus. There is a rotator cuff tear (inversion recovery coronal images 10-15). MRI/Upper Ext/No Jt/ wo IMPRESSION: Rotator cuff tear. No demonstrated muscle strain of the upper arm. Electronically Signed: Laron Martin MD at 11:18 EDT Tel , Service support ,
== END ==
PROVIDERS: PCP Family Medicine; Referring Provider Orthopaedic Surgery; Visit Provider Orthopaedic Surgery
DX: M62.89 Other specified disorders of muscle (principal); S46.012D Strain of muscle(s) and tendon(s) of the rotator cuff of left shoulder, subsequent encounter
CPT/HCPCS: 73218

== ENCOUNTER 2020-06-30 11:30 | Outpatient (RCR) | payer MEDICARE, SELFPAY ==
[2020-04-27 15:14] VITALS: BMI 27.4
--- NOTE | 2020-05-04 12:08 | HP.PTEVAL_ITS ---
Patient's Visit Information LEOLA STARK is a 79 year old F referred to Physical Therapy by Dr. Talita Pinto DO with a diagnosis of L RTC tear. Date of Evaluation: 05/04/20 Physical Therapist: LELIA Hair - Visit Plan Frequency: 2-3x /Week Duration: 6 Weeks Plan: 2-3X/ week for 6 weeks for L shoulder modalities (US and E-stim) to decrease pain and inflammation, PROM L shoulder, AAROM L shoulder, AROM L shoulder, postural and scapular sctrength with HEP - Subjective L arm and she is L handed. She reported that she had an x-ray and MRI of the shoulder and arm. She reports that she does not have the strength to lift her arm. said she is not sure she would do RC surgery on her type of tear. SHe has no neck pain. This started a few months ago. She wakes up if she sleeps on the Left side.... She can not sleep on the L side much. She has problems reaching up to her hair and to do her bra. She used to get cortizone shots for her shoulder area but this is different than what she is used to feeling. She has a lot of calcium deposits in there. The last shot did nothing for her. Reaching is bad and she can not lift anything heavy with that arm and she feels better if she keeps her arm next to her body. It aches in the evening.... but it hurts mostly with activity. - Pain L arm pain Pain Intensity (Out of 10): 3 - Objective Jewel Supervisor strength: Pt is L handed: 31# R. 24# L. R shoulder AROM:WFL flexion and ABD and IR, ER 85. L shoulder AROM: 52 flexion, 62 abd, IR to L5, ER 41. +HK for pain... + Empty can in reduced AROM plane for pain and weakness. Palpation: Tender Infraspinatus tendon and anterior shoulder. Posture: Sits with rounded shoulders. PROM L shoulder to approx 80 degrees abd, 90 degrees flexion, and approx 45 degrees ER - Goals Goal 1:: I HEP Goal Time Frame: 4-6 Weeks Goal 2:: Decrease L shoulder pain to 1/10 with ADL's Goal Time Frame: 4-6 Weeks Goal 3:: Increase L shoulder AROM to 170 degrees elevation Goal Time Frame: 4-6 Weeks Goal 4:: Increase L shoulder strength by 1/2 muscle grade (L shoulder AROM: 52 flexion, 62 abd, IR to L5, ER 41). Goal Time Frame: 4-6 Weeks - Rehabilitation Potential Rehabilitation Potential: Good - Anticipated Interventions Patient/Client Instruction: Educate patient on: Condition, Plan of Care For the Purpose of:: To decrease pain, To decrease swelling/inflammation, To increase ROM, To improve nutrient delivery to tissue, To improve muscle performance and motor function, To improve ability to perform ADL's, To increase tolerance to activity/condition/position, To improve performance and independence with ADL's, To decrease level of supervision to perform tasks, To improve ability of physical actions for home/community/work/leisure, To improve health of tissue, To decrease soft tissue restriction, To increase flexibility/ROM Therapeutic Exercise to Include: Strength training, Postural training, Flexibilty training, Passive ROM, Active ROM, Scapular Strength/Stabilization For the Purpose of:: To decrease pain, To decrease swelling/inflammation, To increase ROM, To improve nutrient delivery to tissue, To improve muscle performance and motor function, To improve ability to perform ADL's, To increase tolerance to activity/condition/position, To improve performance and independence with ADL's, To improve gait and locomotor functions, To decrease soft tissue restriction, To increase flexibility/ROM Manual Therapy Techniques to Include: Passive ROM, Soft tissue mobilization For the Purpose of:: To decrease pain, To increase ROM, To improve nutrient delivery to tissue IF ES: Yes Cryotherapy (ice pack, ice massage): Yes Ultrasound (thermal/non thermal): Yes For the Purpose of:: To decrease pain, To decrease swelling/inflammation, To improve nutrient delivery to tissue Thank you for the opportunity to evaluate your patient. For Medicare and Medicare HMO plans, please review the plan of care and approve it. It will need to be FAXED BACK to us at [phone] for Medicare purposes. For Medicare only, by signing this I certify the plan of care. Please let me know if there are questions or concerns regarding this plan of care. Physician Signature: Date:
--- NOTE | 2020-06-14 11:01 | HP.PTREVAL_ITS ---
Dr. Talita Pinto, DO, It has been my pleasure to treat LEOLA STARK over the last 11 visits for L RTC tear. Please see the progress note below for an update on the physical therapy plan of care! Subjective: She still is favoring it. sometimes just sitting still she will get a tired feeling in her arm with just sitting there. If she goes out too far it bothers her. She feels that if we continue PT she would make some additional improvement. She also fees clicking in her shoulder. Night discomfort is not as bad, especially when on her L side but it is better and has not noticed it as much lately. Objective/Function: L shld flex and abd 70 degrees and ER 40 degrees and IR to L1. MMT.... decreased still due to decrease AROM Plan Plan: Start to give HEP with bands for HOME and add stretching in conjunction with pulleys to gain more ROM. 2-3X/ week for 6 weeks for L shoulder modalities (US and E-stim) to decrease pain and inflammation, PROM L shoulder, AAROM L shoulder, AROM L shoulder, postural and scapular sctrength with HEP Goals Goal 1:: I HEP Goal Time Frame: 4-6 Weeks Goal Progress: Progressing Goal 2:: Decrease L shoulder pain to 1/10 with ADL's Goal Time Frame: 4-6 Weeks Goal Progress: Progressing Goal 3:: Increase L shoulder AROM to 170 degrees elevation Goal Time Frame: 4-6 Weeks Goal Progress: Progressing Goal 4:: Increase L shoulder strength by 1/2 muscle grade (L shoulder AROM: 52 f lexion, 62 abd, IR to L5, ER 41). Goal Time Frame: 4-6 Weeks Goal Progress: Progressing Anticipated Interventions Patient/Client Instruction: Educate patient on: Condition, Plan of Care For the Purpose of:: To decrease pain, To decrease swelling/inflammation, To increase ROM, To improve nutrient delivery to tissue, To improve muscle performance and motor function, To improve ability to perform ADL's, To increase tolerance to activity/condition/position, To improve performance and independence with ADL's, To decrease level of supervision to perform tasks, To improve ability of physical actions for home/community/work/leisure, To improve health of tissue, To decrease soft tissue restriction, To increase flexibility/ROM Therapeutic Exercise to Include: Strength training, Postural training, Flexibilty training, Passive ROM, Active ROM, Scapular Strength/Stabilization For the Purpose of:: To decrease pain, To decrease swelling/inflammation, To increase ROM, To improve nutrient delivery to tissue, To improve muscle performance and motor function, To improve ability to perform ADL's, To increase tolerance to activity/condition/position, To improve performance and independence with ADL's, To improve gait and locomotor functions, To decrease soft tissue restriction, To increase flexibility/ROM Manual Therapy Techniques to Include: Passive ROM, Soft tissue mobilization For the Purpose of:: To decrease pain, To increase ROM, To improve nutrient delivery to tissue IF ES: Yes Cryotherapy (ice pack, ice massage): Yes Ultrasound (thermal/non thermal): Yes For the Purpose of:: To decrease pain, To decrease swelling/inflammation, To improve nutrient delivery to tissue Please do not hesitate to contact me at [phone] by phone or if you have questions or concerns regarding this new plan of care! Sincerely, Eve Hunter, MPT
--- NOTE | 2020-07-06 11:08 | HP.PTDCSUM ---
It has been my pleasure to treat LEOLA STARK referred by Dr. Talita Pinto DO, with the diagnosis of L RTC tear for a total of 16 visit(s). Discharge Date: 07/06/20 Please see the following information for a summary of their discharge status. Subjective: Pt reports that she saw doctor for a recheck. Pt reports that doctor diagnosed pt w/a frozen shoulder and recommended stretching and strengthening at home. If that doesn't help, doctor recommending a manipulation. Pt also received a cortizone shot. Pt also on an antiinflammatory now. L arm pain Pain Intensity (Out of 10): 1 % Improvement: 50 Objective/Function: Pt is to be D/C'd to home program per MD and pt's desire at this time. Pt plans to return to [facility] Goal 1:: I HEP Goal Progress: Progressing Goal 2:: Decrease L shoulder pain to 1/10 with ADL's Goal Progress: Progressing Goal 3:: Increase L shoulder AROM to 170 degrees elevation Goal Progress: Progressing Goal 4:: Increase L shoulder strength by 1/2 muscle grade (L shoulder AROM: 52 flexion, 62 abd, IR to L5, ER 41). Goal Progress: Progressing Plan: DC PT. This is pt's last visit, supervising PT visited w/pt at this visit before she left. Start to give HEP with bands for HOME and add stretching in conjunction with pulleys to gain more ROM. 2-3X/ week for 6 weeks for L shoulder modalities (US and E-stim) to decrease pain and inflammation, PROM L shoulder, AAROM L shoulder, AROM L shoulder, postural and scapular sctrength with HEP Discharge Comments: DC PT to HEP per Dr recommendation If there are questions or concerns regarding this patient's physical therapy, please feel free to call me at [phone]. Thank you for the referral of this patient. Sincerely, Eve Hunter, MPT
== END 2020-06-30 19:00 | disposition home or self-care (01) ==
LOC: PT 11:30
PROVIDERS: PCP Family Medicine; Referring Provider Orthopaedic Surgery; Visit Provider Orthopaedic Surgery
DX: M75.102 Unspecified rotator cuff tear or rupture of left shoulder, not specified as traumatic (principal)
CPT/HCPCS: 97035; 97110; 97161; 97530

== ENCOUNTER 2020-11-25 15:36 | Outpatient (RCR) | payer MEDICARE, SELFPAY | END 2020-11-25 23:59 | LOC: IMMUN 15:36 | PROVIDERS: PCP Family Medicine; Visit Provider Family Medicine | DX: Z23 Encounter for immunization (principal) | CPT/HCPCS: 0011A; 0012A; 91301 ==

== ENCOUNTER 2021-09-05 17:31 | Outpatient (CLI) | payer MEDICARE, SELFPAY ==
[2021-09-05] MEDS: 0.9% Saline Lock 10 ML Syringe IV (18:00)
[2021-09-05 18:06] VITALS: BP 135/59; PULSE 79; RESP 16; TEMP 37; O2SAT 99; BMI 27.4
[2021-09-05 18:40] VITALS: BP 112/52; PULSE 67; RESP 16; TEMP 36.9; O2SAT 99
[2021-09-05 19:34] VITALS: BP 113/60; PULSE 66; RESP 16; TEMP 36.7; O2SAT 98
== END 2021-09-05 19:40 | disposition home or self-care (01) ==
LOC: MS3OUT 17:33 → MS3 17:33
PROVIDERS: PCP Family Medicine; Visit Provider Nurse Practitioner Acute Care
DX: Z23 Encounter for immunization (principal); U07.1 COVID-19
CPT/HCPCS: J7050; M0245; Q0245; A4216

== ENCOUNTER → 2022-08-17 | Outpatient (CLI) | payer MEDICARE, SELFPAY ==
[2022-08-17 12:21] LABS: Absolute Lymphocyte Count 1.91 X10^3/uL (0.83-4.51); Absolute Neutrophil Count 1.9 X10^3/uL (2.0-7.7); Basophil# 0.06 X10^3/uL; Basophil% 1.4 % (0-1); Eosinophil# 0.11 X10^3/uL; Eosinophils% 2.5 % (0-5); Hematocrit 38.9 % (37-47); Hemoglobin 12.5 g/dL (12.0-15.0); Lymphocyte # 1.91 X10^3/ul (0.83-4.51); Mean Corp Hgb Conc 32.1 g/dL (32-36); Mean Corpuscular Hgb 31.2 pg (27.0-32.0); Mean Platelet Vol. 10.3 fl (6.2-12.0); Monocyte# 0.47 X10^3/uL; Monocyte% 10.6 % (0-10); NRBC Flagged by Analyzer 0 % (0-5); Neutrophil # 1.88 X10^3/uL (2.7-7.7); Neutrophil % 42.3 % (47-70); Platelet Count 269 K/mm3 (150-450); RBC Distribution Width CV 13.1 % (11.6-14.6); Red Blood Count 4.01 M/mm3 (4.2-5.4); White Blood Count 4.4 K/mm3 (4.4-11.0)
[2022-08-17 12:34] LABS: Vitamin D,25 Hydroxy 32.4 ng/mL
[2022-08-17 12:35] LABS: ALB/GLOB Ratio 0.9 RATIO (0.9-2.4); AST(SGOT) 16 U/L (15-37); Alanine Aminotransfer ALT/SGPT 29 U/L (13-56); Albumin, Serum 3.4 g/dL (3.2-5.0); Alkaline Phosphatase 87 U/L (45-117); Anion Gap 6 (5-15); BUN 18 mg/dL (7-18); BUN/Creat Ratio 20.5 RATIO (10-20); Calcium,Total 9.5 mg/dL (8.5-10.1); Chloride 106 mmol/L (98-107); Cholesterol 251 mg/dL (200); Creatinine, Serum 0.88 mg/dL (0.55-1.02); EST Glomerular Filtration Rate 66 mL/min (>60); Est Glom Filt Rate - Afr Amer 80 mL/min (>60); Globulin 3.8 g/dL (2.2-4.2); Glucose 93 mg/dL (74-106); High Density Lipoprotein 49 mg/dL; Potassium 4.1 mmol/L (3.5-5.1); Protein, Total 7.2 g/dL (6.4-8.2); Sodium Level 140 mmol/L (136-145); Triglycerides 175 mg/dL; Very Low Density Lipoprotein 35 mg/dL (5-40)
== END | disposition home or self-care (01) ==
LOC: BFHLAB 10:28
PROVIDERS: PCP Family Medicine; Visit Provider Family Medicine
DX: I10 Essential (primary) hypertension (principal); E78.5 Hyperlipidemia, unspecified; E55.9 Vitamin D deficiency, unspecified
CPT/HCPCS: 36415; 80053; 80061; 82306; 85025

== ENCOUNTER → 2023-08-15 | Outpatient (CLI) | payer MEDICARE, SELFPAY ==
[2023-08-15 12:43] LABS: Absolute Lymphocyte Count 1.68 X10^3/uL (0.83-4.51); Absolute Neutrophil Count 2.1 X10^3/uL (2.0-7.7); Basophil# 0.07 X10^3/uL; Basophil% 1.6 % (0-1); Eosinophil# 0.13 X10^3/uL; Eosinophils% 2.9 % (0-5); Hematocrit 39.1 % (37-47); Hemoglobin 12.7 g/dL (12.0-15.0); Lymphocyte # 1.68 X10^3/ul (0.83-4.51); Lymphocyte % 37.6 % (19-41); Mean Corp Hgb Conc 32.5 g/dL (32-36); Mean Corpuscular Hgb 31.7 pg (27.0-32.0); Mean Corpuscular Volume 97.5 fL (81-99); Mean Platelet Vol. 10.5 fl (6.2-12.0); Monocyte# 0.47 X10^3/uL; Monocyte% 10.5 % (0-10); NRBC Flagged by Analyzer 0 % (0-5); Neutrophil # 2.11 X10^3/uL (2.7-7.7); Neutrophil % 47.2 % (47-70); Platelet Count 242 K/mm3 (150-450); RBC Distribution Width CV 12.9 % (11.6-14.6); RBC Distribution Width SD 46.4 fl (35.1-43.9); Red Blood Count 4.01 M/mm3 (4.2-5.4); White Blood Count 4.5 K/mm3 (4.4-11.0)
[2023-08-15 13:12] LABS: Vitamin D,25 Hydroxy 31.2 ng/mL
[2023-08-15 14:03] LABS: AST(SGOT) 21 U/L (15-37); Alanine Aminotransfer ALT/SGPT 29 U/L (13-56); Albumin, Serum 3.6 g/dL (3.2-5.0); Alkaline Phosphatase 66 U/L (45-117); Anion Gap 5 (5-15); BUN 14 mg/dL (7-18); BUN/Creat Ratio 20.2 RATIO (10-20); Calcium,Total 9.2 mg/dL (8.5-10.1); Chloride 110 mmol/L (98-107); Cholesterol 238 mg/dL (200); Creatinine, Serum 0.69 mg/dL (0.55-1.02); EST Glomerular Filtration Rate 87 mL/min (>60); Est Glom Filt Rate - Afr Amer 105 mL/min (>60); Globulin 3.7 g/dL (2.2-4.2); Glucose 99 mg/dL (74-106); High Density Lipoprotein 54 mg/dL; Potassium 4.6 mmol/L (3.5-5.1); Protein, Total 7.3 g/dL (6.4-8.2); Sodium Level 141 mmol/L (136-145); Thyroid Stim Hormone (TSH) 1.19 uIU/mL (0.358-3.74); Triglycerides 172 mg/dL; Very Low Density Lipoprotein 34 mg/dL (5-40)
== END | disposition home or self-care (01) ==
LOC: BFHLAB 09:33
PROVIDERS: PCP Family Medicine; Visit Provider Family Medicine
DX: I10 Essential (primary) hypertension (principal); E78.5 Hyperlipidemia, unspecified; E55.9 Vitamin D deficiency, unspecified
CPT/HCPCS: 36415; 80053; 80061; 82306; 84443; 85025

== ENCOUNTER → 2024-08-21 | Outpatient (CLI) | payer MEDICARE, SELFPAY ==
[2024-08-21 12:01] LABS: Absolute Lymphocyte Count 1.56 X10^3/uL (0.83-4.51); Absolute Neutrophil Count 2.2 X10^3/uL (2.0-7.7); Basophil# 0.08 X10^3/uL; Basophil% 1.8 % (0-1); Eosinophil# 0.09 X10^3/uL; Hematocrit 37.6 % (37-47); Hemoglobin 12.6 g/dL (12.0-15.0); Lymphocyte # 1.56 X10^3/ul (0.83-4.51); Lymphocyte % 34.6 % (19-41); Mean Corp Hgb Conc 33.5 g/dL (32-36); Mean Corpuscular Hgb 32.4 pg (27.0-32.0); Mean Corpuscular Volume 96.7 fL (81-99); Mean Platelet Vol. 10.3 fl (6.2-12.0); Monocyte# 0.52 X10^3/uL; Monocyte% 11.5 % (0-10); NRBC Flagged by Analyzer 0 % (0-5); Neutrophil # 2.24 X10^3/uL (2.7-7.7); Neutrophil % 49.7 % (47-70); Platelet Count 248 K/mm3 (150-450); RBC Distribution Width CV 12.6 % (11.6-14.6); RBC Distribution Width SD 44.9 fl (35.1-43.9); Red Blood Count 3.89 M/mm3 (4.2-5.4); White Blood Count 4.5 K/mm3 (4.4-11.0)
[2024-08-21 12:54] LABS: ALB/GLOB Ratio 1.1 RATIO (0.9-2.4); AST(SGOT) 15 U/L (15-37); Alanine Aminotransfer ALT/SGPT 30 U/L (13-56); Albumin, Serum 3.6 g/dL (3.2-5.0); Alkaline Phosphatase 67 U/L (45-117); Anion Gap 5 (5-15); BUN 18 mg/dL (7-18); BUN/Creat Ratio 22.8 RATIO (10-20); Calcium,Total 9.4 mg/dL (8.5-10.1); Chloride 109 mmol/L (98-107); Cholesterol 276 mg/dL (200); Creatinine, Serum 0.79 mg/dL (0.55-1.02); EST Glomerular Filtration Rate 74 mL/min (>60); Est Glom Filt Rate - Afr Amer 90 mL/min (>60); Globulin 3.4 g/dL (2.2-4.2); Glucose 95 mg/dL (74-106); High Density Lipoprotein 54 mg/dL; Potassium 4.7 mmol/L (3.5-5.1); Sodium Level 140 mmol/L (136-145); Triglycerides 200 mg/dL; Very Low Density Lipoprotein 40 mg/dL (5-40)
== END | disposition home or self-care (01) ==
LOC: BFHLAB 10:40
PROVIDERS: PCP Family Medicine; Referring Provider Family Medicine; Visit Provider Family Medicine
DX: I10 Essential (primary) hypertension (principal); E78.5 Hyperlipidemia, unspecified; E55.9 Vitamin D deficiency, unspecified
CPT/HCPCS: 36415; 80053; 80061; 82306; 85025

== ENCOUNTER 2025-07-05 09:45 | Emergency (ER) | payer MEDICARE, SELFPAY ==
[2025-07-05] VITALS (9 sets, daily range): BP systolic 109–141; BP diastolic 66–89; PULSE 64–80; RESP 10–18; TEMP 36.6–36.7; O2SAT 95–100; BMI 28.2
--- NOTE | 2025-07-05 10:02 | EKG12_ITS ---
Test Reason : Blood Pressure : */* mmHG Vent. Rate : 65 BPM Atrial Rate : 65 BPM P-R Int : 186 ms QRS Dur : 76 ms QT Int : 416 ms P-R-T Axes : 82 4 47 degrees QTcB Int : 432 ms Normal sinus rhythm Normal ECG Confirmed by Kenn Chun ([id number]), design editor ELIO PARRISH ([id number]) on 07/06/2025 9:48:38 AM Referred By: Confirmed By: Kenn Chun
--- NOTE | 2025-07-05 10:03 | EX.ED.DYSGE1 ---
HPI History of Present Illness Chief Complaint: Syncope Informant: patient and family (x3) Narrative Narrative: 85-year-old female presenting after a syncopal episode. She states she had gotten up and started making that bad and started feeling nauseated and not well. She did not have any other symptoms. She was heading for the bathroom, she started to feel lightheaded and more nauseated, called for her who found her passed out on the floor, she was already sitting before she lost consciousness and did not injure herself or fall down the stairs where she was at the top of. She had no other prodromal symptoms, just lightheadedness and nausea; no dyspnea, chest discomfort, headache, lateralizing neurologic symptoms. She feels better now just tired and nauseated. She has a history of migraines that she takes a preventative monthly injection for, and musculoskeletal low back pain that hurts more when she is on her feet for a long time and when she does a lot of bending over and lifting. That is not bothering her right now and she does not have a headache right now. Last time she had a syncopal episode was yesterday, it was after she urinated, she denies bearing down or having a bowel movement, she had already been feeling nauseated for 20 or 30 minutes prior to that, she states she was washing her hands and was feeling lightheaded during all of that and woke up on the floor. The rest of that day she was fatigued, but then she was ambulatory and doing things and otherwise fine yesterday except for having a mild headache that eventually went away. Has been drinking plenty of fluids recently, has not eaten much this past day after this other more recent syncopal episode and not feeling well since. Family states she tends to pass out easily especially after bowel movements, but this is the first time she has ever had 2 unexplained episodes of syncope. Today when family was able to get to her and check her pulse with a home pulse oximeter, she was in the 60s. She was awake at that time. [facility] Medical History Osteopenia Hyperlipidemia Migraines Back problem Arthritis Seasonal allergies Hypertension Home Medications ?Medication ?Instructions ?Recorded ?Last Taken ?Type biotin 5 mg tablet 3 mg PO BID 07/18/19 Unknown History calcium 600 mg (as 1 ea PO DAILY supplement 07/18/19 Unknown History carbonate)-vitamin D3 10 mcg (400 unit) tablet ezetimibe 10 mg tablet 10 mg PO DAILY cholesterol 07/18/19 Unknown History minxcgpn-crb-jafb-FA-Ca carb-vit K 1 ea PO DAILY vitamin 07/18/19 Unknown History 18 mg iron-400 mcg-500 mg tablet pramipexole 0.25 mg tablet 0.25 mg PO QHS restless legs 07/18/19 Unknown History sumatriptan succinate 50 mg tablet 25 mg PO PRN PRN cluster headache 07/18/19 Unknown History fremanezumab-vfrm 225 mg/1.5 mL 225 mg subcut Q30D 09/05/21 Unknown History subcutaneous auto-injector (Ajovy) lisinopril 5 mg tablet 5 mg PO DAILY 09/05/21 Unknown History pregabalin 150 mg capsule 150 mg PO DAILY RLS 09/05/21 Unknown History Allergy/AdvReac Type Severity Reaction Status Date / Time No Known Allergies Allergy Verified 07/05/25 09:45 Family History Father Myocardial infarction Brother Pancreatic cancer Sister Lung cancer Surgical History H/O breast biopsy S/P LEEP (loop electrosurgical excision procedure) H/O tubal ligation Social History Smoking Status: Never smoker ROS ROS ED Constitutional Constitutional ED: Denies chills or fever(s) Eyes Eyes: Denies change in vision or diplopia ENT ENT ED: Denies rhinorrhea or sore throat Cardiovascular Cardiovascular: Reports fatigue, lightheadedness, nausea and syncope; Denies arrhythmia on telemetry, chest pain, leg edema, orthostatic symptoms or palpitations Respiratory/Chest Respiratory/Chest: Denies cough or dyspnea Gastrointestinal Gastrointestinal: Reports nausea; Denies abdominal pain, diarrhea or vomiting Genitourinary Genitourinary ED: Denies dysuria or hematuria Musculoskeletal Musculoskeletal: Denies back pain or neck pain Integumentary Denies abscess or rash Neurologic Neurologic: Denies headache(s), paresthesias or weakness Psychiatric Psychiatric: Denies anxiety or suicidal thoughts EXAM Physical Exam Const Vital Signs: 07/05/25 09:45 07/05/25 10:08 07/05/25 10:18 Temperature 98.1 F Temperature Source Temporal Pulse Rate 70 Pulse Rate [Lying] 65 Pulse Rate [Sitting (for 1 minute prior to obtaining)] 64 Pulse Rate [Standing (for 1 minute prior to obtaining)] 76 Respiratory Rate 16 Blood Pressure 120/71 Blood Pressure [Lying] 131/72 H Blood Pressure [Sitting (for 1 minute prior to obtaining)] 127/66 H Blood Pressure [Standing (for 1 minute prior to obtaining)] 115/67 Blood Pressure Mean 87 Blood Pressure Mean [Lying] 91 Blood Pressure Mean [Sitting (for 1 minute prior to obtaining)] 86 Blood Pressure Mean [Standing (for 1 minute prior to obtaining)] 83 Pulse Ox 98 100 Oxygen Delivery Method Room Air Room Air 07/05/25 10:45 07/05/25 11:00 07/05/25 12:00 Temperature Temperature Source Pulse Rate 80 80 68 Pulse Rate [Lying] Pulse Rate [Sitting (for 1 minute prior to obtaining)] Pulse Rate [Standing (for 1 minute prior to obtaining)] Respiratory Rate 18 18 15 Blood Pressure 120/89 H 109/80 128/72 H Blood Pressure [Lying] Blood Pressure [Sitting (for 1 minute prior to obtaining)] Blood Pressure [Standing (for 1 minute prior to obtaining)] Blood Pressure Mean 99 89 90 Blood Pressure Mean [Lying] Blood Pressure Mean [Sitting (for 1 minute prior to obtaining)] Blood Pressure Mean [Standing (for 1 minute prior to obtaining)] Pulse Ox 98 98 95 Oxygen Delivery Method Room Air 07/05/25 13:00 07/05/25 14:00 Temperature Temperature Source Pulse Rate 64 65 Pulse Rate [Lying] Pulse Rate [Sitting (for 1 minute prior to obtaining)] Pulse Rate [Standing (for 1 minute prior to obtaining)] Respiratory Rate 12 10 L Blood Pressure 110/74 121/72 H Blood Pressure [Lying] Blood Pressure [Sitting (for 1 minute prior to obtaining)] Blood Pressure [Standing (for 1 minute prior to obtaining)] Blood Pressure Mean 86 88 Blood Pressure Mean [Lying] Blood Pressure Mean [Sitting (for 1 minute prior to obtaining)] Blood Pressure Mean [Standing (for 1 minute prior to obtaining)] Pulse Ox 99 99 Oxygen Delivery Method Room Air Room Air Positive well nourished and well developed General Appearance ED: well developed and NAD HEENT Reports moist mucous membranes normocephalic and atraumatic Eyes PERRL and EOMs intact bilaterally Neck full ROM and supple Resp normal respiratory effort and clear to auscultation bilaterally Cardio regular rate, regular rhythm and no murmurs Rate: Negative for bradycardia or tachycardic GI non-tender and non-distended Auscultation: normoactive bowel sounds Palpation: soft Back/Spine no CVA tenderness General Back: other FROM Extremity normal to inspection General Extremety ED: Negative for edema, pulses abnormal or tenderness General Extremity: Negative for edema or pulses abnormal Neuro oriented x3, CN's II-XII intact bilaterally and no sensory deficits noted Sensorium / Orientation: awake and alert Motor Exam: strength 5/5 throughout Skin no rashes or lesions noted and no wounds MDM MDM MDM Narrative Medical decision making narrative: Obtain labs, she is not anemic, she has a D-dimer that is 0.72, which is a little abnormal but when corrected for age is within normal limits ruling out PE as cause for this unexplained syncope. Her EKG is normal, she is resting in the 60s here, I reviewed her medications she is on no AV marianne blockers. Also reviewed 1 view chest x-ray which my interpretation shows no cardiomegaly or acute abnormality, radiology was in agreement. Orthostatics obtained and are negative/normal. At this point her vital signs are normal labs are normal initial troponin is normal and we will monitor her and obtain a second troponin. Second opponent returns at 9 for a delta of 0. Patient doing well with normal vital signs and no telemetry or clinical events/symptoms while being observed in the ED for a total of 4-5 hours. I discussed with Dr. Rai, he states that placing a Holter monitor on the patient would be reasonable, as would inpatient observation and further evaluation. The patient is adamant that she wants to go home. I checked with respiratory, unfortunately we do not have any Holter monitors to provide to her today or tomorrow. I reevaluated and discussed this with her, offering admission, but she still wants to go home. Family is able to place a new Apple watch on her with an EKG meeta that she will use at home until she follows up with cardiology Lab Data Attestation: I reviewed the patient's lab results. Labs: Laboratory Results - last 24 hr 07/05/25 07/05/25 09:53 12:05 WBC 4.7 RBC 3.98 L Hgb 12.9 Hct 37.6 MCV 94.5 MCH 32.4 H MCHC 34.3 RDW Std Deviation 44.2 H RDW Coeff of Eliel 12.7 Plt Count 253 MPV 9.8 Immature Gran % (Auto) 0.800 Neut % (Auto) 52.8 Lymph % (Auto) 34.2 [place] % (Auto) 9.9 Eos % (Auto) 0.8 Baso % (Auto) 1.5 H Absolute Neuts (auto) 2.5 Absolute Lymphs (auto) 1.62 Nucleated RBC % 0 D-Dimer Quant (PE/DVT) 0.72 H* Sodium 138 Potassium 4.0 Chloride 105 Carbon Dioxide 23.5 Anion Gap 10 BUN 12 Creatinine 0.76 Estim Creat Clear Calc 48.84 L Est GFR (MDRD) Non-Af 78 BUN/Creatinine Ratio 16.2 Glucose 106 H Calcium 9.1 Troponin T High Sens 9 Troponin T Hi Sens 2 Hr 9 Radiography Diagnostic Testing: Clinical Impression(s) from Imaging Studies Chest X-Ray 07/05/25 10:05 IMPRESSION: Negative for acute cardiopulmonary disease. Reading Location: [facility] Rhythm Strip Rhythm Strip: Sinus Rhythm Rate: 68 Ectopy: None EKG Initial EKG: Attestation: I personally reviewed and interpreted this EKG as follows: Interpretation: Sinus Rhythm and No Acute Injury Pattern Comments: Nml axis & intervals; nml EKG Management Discussion w/another healthcare provider: [facility] [employer] [facility] (Cardiology) Discharge Plan Triage Chief Complaint: Syncope ED Provider: Carlton Vasquez Dx/Rx/DC Orders Clinical Impression: Recurrent syncope Instructions: Causes of Syncope Prescriptions: No Action sumatriptan succinate 50 MG tablet 25 mg PO PRN PRN (Reason: cluster headache) pramipexole 0.25 MG tablet 0.25 mg PO QHS ezetimibe 10 MG tablet 10 mg PO DAILY calcium carbonate-vitamin D3 1 EACH tablet 1 ea PO DAILY biotin 5 MG tablet 3 mg PO BID qk-es-[id number]-FA-Ca carb-vit K 1 EACH tablet 1 ea PO DAILY lisinopril 5 mg tablet 5 mg PO DAILY pregabalin 150 mg capsule 150 mg PO DAILY Ajovy Autoinjector 225 mg/1.5 mL auto-injector 225 mg SUBCUT Q30D Primary Care Provider: Carlos Tse Referrals: Carlos Tse DO [Primary Care Provider] - Darren Rai MD [Med Staff - Active Staff] - As soon as possible Print Language: Tamazight Disposition Disposition: Home, Self Care
--- NOTE | 2025-07-05 10:05 | RAD_ITS ---
PROCEDURE: CHEST 1 VIEW (PORTABLE) 07/05/2025 REASON FOR EXAM: CHEST PAIN TECHNIQUE: Frontal view of the chest. COMPARISON: None. FINDINGS: Hardware and support lines: None. Heart: Heart upper limits of normal size. Lungs: Negative for infiltrates, or pulmonary edema. Pleura: No pleural thickening. No pleural effusion. Mediastinum and aorta: Negative for hilar adenopathy. Mildly tortuous thoracic aorta. Bones: Slight curvature thoracic spine convex left. Age-appropriate degenerative changes of the spine. Other: Remainder of the exam negative. RAD/Chest 1 View (Portable) IMPRESSION: Negative for acute cardiopulmonary disease. Reading Location: [id number]
[2025-07-05 10:19] LABS: Hematocrit 37.6 % (37-47); Hemoglobin 12.9 g/dL (12.0-15.0); Immature Granulocytes Count 0.040 X10^3/uL (0.0-0.0); Mean Corp Hgb Conc 34.3 g/dL (32-36); Mean Corpuscular Volume 94.5 fL (81-99); Mean Platelet Vol. 9.8 fl (6.2-12.0); NRBC Flagged by Analyzer 0 % (0-5); Platelet Count 253 K/mm3 (150-450); RBC Distribution Width CV 12.7 % (11.6-14.6); RBC Distribution Width SD 44.2 fl (35.1-43.9); Red Blood Count 3.98 M/mm3 (4.2-5.4); White Blood Count 4.7 K/mm3 (4.4-11.0)
[2025-07-05 10:27] LABS: D-Dimer Quantitative (DVT/PE) 0.72 FEU/ug/m (0.27-0.49)
--- OUTSIDE RECORDS SUMMARY | 2025-07-05 10:27 | XMS RPT_ITS | CCD ---
Author Organization [facility] Care Team Providers Care Attending Pathologist Name Role Phone Talita Pinto Unavailable [phone] CrouchAnne pelaez Nida Unavailable SANJANA GARNICA Unavailable Unavailable RUPALI CLINE Unavailable Unavailable PAVAN JAMES Attending Unavailable RUPALI CLINE Primary Care Unavailable Sonabida DICKEY, Rupali Sellers Primary Care Provider [phone] Fast DO, Mary A Primary Care Provider [phone] Fast DO, Mary A Primary Care Provider [phone] Fast DO, Mary A Primary Care Provider [phone] Son DO, Rupali Sellers Primary Care Provider [phone] RUPALI CLINE Primary Care Unavailable LAYLA PALOMINO Admitting Unavailable Fast DO, Mary A Primary Care Provider [phone] Son DO, Rupali A Primary Care Provider Fast DO, Mary A Primary Care Provider [phone] Rupali Cline Referring Unavailable Rupali Cline Attending Unavailable Rupali Cline Primary Care Unavailable SON, RUPALI A Primary Care Unavailable [place] BROWN Attending Unavailable RUPALI CLINE A Primary Care Unavailable INDIANA AUGUSTE Attending Unavailable RUPALI CLINE Primary Care Unavailable [place] AUGUSTE Referring Unavailable SONRUPALI A Primary Care Unavailable [place] BROWN Attending Unavailable RUPALI CLINE A Primary Care Unavailable LAYLA CHERRY Attending Unavailable Allergies Allergy Classification Reported Allergen(s) Allergy Type Date of Onset Reaction(s) Facility (3 sources) atorvastatin drug allergy 05-29-20 16 Myalgia [facility] Work Phone: (3 sources) pravastatin drug allergy 05-29-20 16 Myalgia [facility] Work Phone: (20 sources) atorvastatin; Translations: [ATORVASTATIN] Drug Allergy 05-29-20 16 Other: See Comments [facility] (20 sources) Pravastatin; Translations: [PRAVASTATIN] Drug Allergy 05-29-20 Other: See Comments [facility] (20 sources) SEASONAL [Other] Propensity to adverse reactions 09-26-20 05 [facility] Work Phone: Medications Current Medications Medication Drug Class(es) Dates Sig (Normalized) Sig (Original) biotin 5 mg oral tablet (20 sources) Start: 07-18-2019 biotin 5 mg tab Take 3 mg by mouth. 07/18/2019 Active Start: 07-18-2019 take 3 mg by mouth twice daily Biotin Active 3 MG PO TWICE A DAY July 18, 2019 12:00am BIOTIN ORAL Take by mouth daily . 0 Active calcium carbonate 1500 mg oral tablet (3 sources) take 1 tablet by mouth once daily calcium carbonate (OS-CHRIS) 600 mg calcium (1,500 mg) tablet Take 600 mg by mouth daily With D3 . 0 Active calcium carbonate 1500 mg / cholecalciferol 0.01 mg oral tablet (20 sources) Vitamin D Start: 07-18-2019 Calcium Carbonate-Vitamin D3 Active 1 EACH PO DAILY July 18, 2019 12:00am Start: 11-29-2009 calcium carbon ate/vitamin d3(CALCIUM 600 + D(3) 600 MG (1,500)-200 UNIT TAB) Take one(1) tablet twice daily. 0 11/29/2009 Active Comment on above: Take one(1) tablet t wice daily. cephalexin 500 mg oral capsule (1 source) Cephalosporin Antibacterial Start: 022 End: 022 take 1 capsule by mouth twice daily cephALEXin (KEFLEX) 500 MG capsule Take 1 (one) capsule (500 mg total) by mouth 2 (two) times a day for 7 days . 14 capsule 0 08/25/2022 09/01/2022 Active 1 ml erenumab-aooe 140 mg/ml auto-injector (20 sources) Start: 024 End: 025 inject 1 mL by subcutaneous injection every month in the morning erenumab-aooe (AIMOVIG AUTOINJECTOR) 140 mg/mL auto-injector Indications: Migraine without aura and without status migrainosus, not intractable Inject 1 mL subcutaneously once every month. Do not shake. 3 mL 3 05/28/2025 8:56 AM EDT 02/04/2025 Active Start: 12-29-2021 End: 02-19-2023 inject 1 mL by subcutaneous injection every month erenumab-aooe (AIMOVIG AUTOINJECTOR) 140 mg/mL auto-injector Inject 1 mL subcutaneously once every month. Do not shake. 1 mL 11 02/20/2023 Active Comment on above: Inject 1 mL subcutan eously once every month. Do not shake. ezetimibe 10 mg oral tablet (20 sources) Dietary Cholesterol Absorption Inhibitor Start: 5 End: 9 ZETIA 10 MG TAB Take by mouth. 0 09/27/2005 Active Comment on above: Take by mouth. 1.5 ml fremanezumab-vfrm 150 mg/ml auto-injector (2 sources) Start: 1 Fremanezumab-Vfrm (Ajovy Autoinjector) 225 mg/1.5 mL auto-injector Active 225 MG SC Q30D September 05, 2021 1:00am fremanezumab-vfrm (AJOVY SYRINGE SUBQ) (3 sources) fremanezumab-vfr m (AJOVY SYRINGE SUBQ) Inject under the skin every 30 (thirty) days . 0 Active gabapentin 300 mg oral capsule (20 sources) Anti-epileptic Agent Start: 4 End: 5 gabapentin (NEURONTIN) 300 mg capsule Take 1 to 2 capsules at 3PM and 1 to 2 capsules at 7PM. 360 capsule 1 09/17/2024 Active Comment on above: Take 1 to 2 capsules at 5PM and 1 capsules at 9PM. lisinopril 5 mg oral tablet (20 sources) Angiotensin Converting Enzyme Inhibitor Start: 1 take 5 mg by mouth once daily Lisinopril Active 5 MG PO DAILY September 05, 2021 1:00am Start: 12-16-2014 End: 08-24-2020 take 5 mg by mouth once daily Lisinopril Discontinued 5 MG PO DAILY July 03, 2019 12:00am August 24, 2020 1:03pm Comment on above: Take 5 mg by mouth o nce daily. multivitamin (multivitamin) per tablet (1 source) take 1 tablet by mouth once daily multivitamin (multivitamin) per tablet Take 1 tablet by mouth daily Vitafusion brand . 0 Active multivitamin (THERAGRAN) per tablet (2 sources) take 1 tablet by mouth once daily multivitamin (THERAGRAN) per tablet Take 1 tablet by mouth daily Vitafusion brand . 0 Active Cy-Ti-Znor-Fa-Ca Carb-Vit K (2 sources) Start: 07-18-20 Jc-Cl-Nnld-Fa-Ca Carb-Vit K Active 1 EACH PO DAILY July 18, 2019 12:00am nitrofurantoin, macrocrystals 25 mg / nitrofurantoin, monohydrate 75 mg oral capsule (1 source) Nitrofuran Antibacterial Start: 09-17-20 End: 09-22-20 take 1 capsule by mouth twice daily nitrofurantoin monohydrate and macrocrystal (MACROBID) 100 mg capsule Take 1 capsule by mouth two times a day for 5 days. 10 capsule 09/17/2024 09/22/2024 Active nystatin 100 unt/mg topical powder (1 source) Polyene Antifungal Start: 08-28-20 End: 08-28-20 nystatin (MYCOSTATIN) powder Apply topically 2 (two) times a day . 15 g 0 08/28/2022 08/28/2023 Active OTC NUTRITIONAL SUPPLEMENT (20 sources) Start: 07-26-20 05 OTC NUTRITIONAL SUPPLEMENT calcium 600 mg qd 0 07/26/2005 Active Comment on above: calcium 600 mg qd pregabalin 100 mg oral capsule (20 sources) Start: 11-27-19 End: 02-25-20 take 1 capsule by mouth once daily at bedtime pregabalin (LYRICA) 100 mg capsule Indications: RLS (restless legs syndrome) Take 1 capsule by mouth daily at bedtime for 90 days. 30 capsule 0 11/27/2023 02/25/2024 Active Start: 10-08-2023 End: 01-06-2024 take 1 capsule by mouth twice daily pregabalin (LYRICA) 25 mg capsule Indications: RLS (restless legs syndrome) Take 1 capsule by mouth two times a day for 90 days. 60 capsule 2 10/08/2023 01/06/2024 Active Start: 01-04-2023 End: 08-30-2023 take 1 capsule by mouth once daily at bedtime pregabalin (LYRICA) 100 mg capsule Indications: RLS (restless legs syndrome) Take 1 capsule by mouth daily at bedtime for 90 days. 30 capsule 2 03/08/2023 06/01/2023 Discontinued Start: 12-18-2022 End: 06-06-2023 take 1 capsule by mouth twice daily pregabalin (LYRICA) 25 mg capsule Indications: RLS (restless legs syndrome) Take 1 capsule by mouth twice daily for 90 days. 60 capsule 2 03/08/2023 Active Start: 06-16-2022 End: 09-14-2022 take 1 capsule by mouth twice daily pregabalin (LYRICA) 25 mg capsule Indications: RLS (restless legs syndrome) Take 1 capsule by mouth twice daily for 90 days. 60 capsule 2 06/16/2022 Active Start: 02-06-2022 End: 07-02-2022 take 1 capsule by mouth once daily at bedtime pregabalin (LYRICA) 25 mg capsule Indications: RLS (restless legs syndrome) Take 1 capsule by mouth daily at bedtime for 90 days. 30 capsule 2 04/03/2022 06/16/2022 Discontinued Start: 02-06-2022 End: 01-02-2023 take 1 capsule by mouth once daily at bedtime pregabalin (LYRICA) 100 mg capsule Indications: RLS (restless legs syndrome) TAKE 1 CAPSULE BY MOUTH DAILY AT BEDTIME 30 capsule 2 10/04/2022 Active Start: 09-05-2021 End: 02-06-2022 take 150 mg by mouth once daily Pregabalin Active 150 MG PO DAILY September 05, 2021 1:00am Comment on above: Take 1 capsule by mo uth daily at bedtime for 90 days. Take 1 capsule by mo uth daily at bedtime for 60 days. Take 1 capsule by mo uth twice daily for 90 days. TAKE 1 CAPSULE BY MO UTH DAILY AT BEDTIME Take 1 capsule by mo uth two times a day for 90 days. SUMAtriptan 100 mg oral tablet (20 sources) Serotonin-1b and Serotonin-1d Receptor Agonist Start: 11-21-2023 SUMAtriptan (IMITREX) 100 mg tablet Take 50 mg to 100 mg at migraine onset. May repeat once in 2 hours if needed. 90 tablet 1 11/21/2023 Active Start: 01-26-2023 End: 05-31-2023 SUMAtriptan (IMITREX) 100 mg tablet Take 50 mg to 100 mg at migraine onset. May repeat once in 2 hours if needed. 9 tablet 1 01/26/2023 05/31/2023 Discontinued Start: 07-22-2020 End: 01-24-2023 SUMAtriptan (IMITREX) 100 mg tablet Take 1 tablet by mouth as needed (Migraine). 10 tablet 6 05/18/2022 01/24/2023 Discontinued Start: 07-22-2020 SUMAtriptan (I MITREX) 100 MG tablet Take 100 mg by mouth as needed 1/2 tablet as needed for cluster headache . 0 07/22/2020 Active Start: 07-18-2019 Sumatriptan Joiner ccinate Active 25 MG PO NEEDED July 18, 2019 12:00am Start: 03-07-2016 SUMATRIPTAN JOINER CCINATE 100 MG TABS 1/2-1 tab as needed for migraine headache SUMATRIPTAN SUCCINATE [id number] Rupali Cline DO Comment on above: Take 100 mg by mouth . Take 1 tablet by albaro th as needed (Migraine). Take 50 mg to 100 mg at migraine onset. May repeat once in 2 hours if needed. THERAPEUTIC MULTIVITAMIN ORAL TAB (20 sources) Start: 5 take 1 tablet by mouth once daily THERAPEUTIC MULTIVITAMIN ORAL TAB Take one(1) tablet daily. 0 07/26/2005 Active Comment on above: Take one(1) tablet d aily. Completed/Discontinued Medications Medication Drug Class(es) Dates Sig (Normalized) Sig (Original) amitriptyline hydrochloride 25 mg oral tablet (2 sources) Tricyclic Antidepressant Start: 07-18-2019 End: 08-24-2020 take 25 mg by mouth at bedtime Amitriptyline Discontinued 25 MG PO AT BEDTIME July 18, 2019 12:00am August 24, 2020 1:02pm aspirin 81 mg delayed release oral tablet (9 sources) Platelet Aggregation Inhibitor, Nonsteroidal Anti-inflammatory Drug End: 10-04-2022 take 1 tablet by mouth once daily aspirin, enteric coated (ASPIRIN, ENTERIC COATED) 81 mg EC tablet Take 81 mg by mouth once daily. 0 10/04/2022 Discontinued (Other) Comment on above: Take 81 mg by mouth once daily. calcium (3 sources) Phosphate Binder, Calcium Start: 03-07-2016 take 1-2 tablets by mouth once daily CALCIUM 600 MG TABS One to two tablets by mouth daily CALCIUM [id number] Rupali A Son DICKEY emollient combination no.61 (COCONUT OIL CREAM TOPICAL) (4 sources) End: 05-18-2022 emollient combination no.61 (COCONUT OIL CREAM TOPICAL) Apply to affected area. 0 05/18/2022 Discontinued (Other) emollient combin ation no.61 (COCONUT OIL CREAM TOPICAL) Apply to affected area. 0 Active Comment on above: Apply to affected ar ea. LINACLOTIDE (6 sources) Guanylate Cyclase-C Agonist Start: 01-07-2015 LINZESS 145 MCG CAPS as needed LINACLOTIDE [id number] Talita Pinto Start: 01-07-2015 End: 03-07-2016 LINZESS 145 MCG CAPS as need ed LINACLOTIDE [id number] Rupali Cline DO multivitamin (3 sources) Start: 03-07-2016 take 1 tablet by mouth once daily MULTI-VITAMIN TABS One tablet by mouth daily MULTIPLE VITAMIN [id number] Rupali Darren Cline DO phenazopyridine hydrochloride 200 mg oral tablet (4 sources) Start: 07-15-2020 End: 05-18-2022 take 1 tablet by mouth every eight hours as needed phenazopyridine (PYRIDIUM) 200 mg tablet Take 1 tablet by mouth three times daily as needed. 9 tablet 0 07/15/2020 05/18/2022 Discontinued (Other) Comment on above: Take 1 tablet by albaro th three times daily as needed. pramipexole dihydrochloride 0.125 mg oral tablet (20 sources) Nonergot Dopamine Agonist Start: 06-16-2024 End: 09-17-2024 pramipexole (MIRAPEX) 0.125 mg tablet Week 1: take 2 tablets at 3 PM and 1 tablet at 7 PM, Week 2: take 1 tablet at 3 PM and 1 tablet at 7 PM, Week 3: take 1 tablet at 3 PM, then stop 48 tablet 06/16/2024 09/17/2024 Discontinued Start: 10-08-2023 End: 06-16-2024 pramipexole (MIRAPEX) 0.5 mg tablet Take 1/2 tablet at 4PM and 8PM 90 tablet 1 03/17/2024 06/16/2024 Discontinued Start: 04-08-2021 End: 07-12-2023 pramipexole (MIRAPEX) 0.5 mg tablet TAKE 1/2 TABLET IN AM AND 1 TABLET IN PM 60 tablet 2 06/22/2023 Active Start: 07-18-2019 take 0.25 mg by mout h at bedtime Pramipexole Active 0.25 MG PO AT BEDTIME July 18, 2019 12:00am Start: 04-11-2019 pramipexole (M IRAPEX) 0.5 mg tablet PRN 0 04/08/2021 Active Start: 04-11-2019 take 0.25 mg by mout h once daily pramipexole (MIRAPEX) 0.5 MG tablet Take 0.25 mg by mouth daily . 0 04/11/2019 Active Comment on above: PRN Take 1 tablet by albaro th twice daily. Take 1/2 tablet in AM and 1 tablet in PM TAKE 1/2 TABLET IN A M AND 1 TABLET IN PM TAKE 0.5 TABLET IN T HE MORNING AND 1 TABLET IN THE EVENING pravastatin sodium 40 mg oral tablet (6 sources) HMG-CoA Reductase Inhibitor Start: 6 End: 6 take 1 tablet by mouth once daily PRAVASTATIN SODIUM 40 MG TABS One tablet by mouth daily PRAVASTATIN SODIUM [id number] Rupali Darren Son DICKEY Turmeric Root Extract (2 sources) Start: 9 End: 0 take 500 mg by mouth once daily Turmeric Root Extract Discontinued 500 MG PO DAILY July 18, 2019 12:00am July 02, 2020 11:53am Problems Active Problems Problem Classification Problem Date Documented Date Episodic/Chronic Diseases of white blood cells (3 sources) Leukopenia; Translations: [Decreased white blood cell count, unspecified] Onset: 04-28-2016 04-28-2016 Chronic Disorders of lipid metabolism (3 sources) Hyperlipidemia; Translations: [Hyperlipidemia, unspecified] Onset: 03-07-2016 03-07-2016 Chronic Essential hypertension (4 sources) Hypertensive disorder; Translations: [Essential (primary) hypertension] Onset: 03-07-2016 03-07-2016 Chronic Genitourinary symptoms and ill-defined conditions (7 sources) Urgency of urination; Translations: [Urgent desire to urinate] Onset: 08-25-2022 Episodic Headache, including migraine (5 sources) Chronic headache disorder; Translations: [Headache] Onset: 03-07-2016 03-07-2016 Episodic Headache; including migraine (4 sources) Migraine without aura, not refractory ; Translations: [Migraine without aura, not intractable, without status migrainosus] Chronic Menopausal disorders (20 sources) Atrophic vaginitis; Translations: [Postmenopausal atrophic vaginitis] Onset: 11-26-2008 11-26-2008 Chronic Other congenital anomalies (1 source) Porokeratosis; Translations: [Other specified congenital malformations of skin] Chronic Other connective tissue disease (2 sources) Pain in right foot; Translations: [Pain in right foot] Episodic Other female genital disorders (1 source) Vaginal irritation; Translations: [Other specified noninflammatory disorders of vagina] Episodic Other hereditary and degenerative nervous system conditions (20 sources) Restless legs; Translations: [Restless legs syndrome] Onset: 06-16-2024 Chronic Other hereditary and degenerative nervous system conditions (1 source) Restless legs syndrome; Translations: [RLS (restless legs syndrome)] Onset: 06-16-2024 Chronic Prolapse of female genital organs (9 sources) Midline cystocele; Translations: [Cystocele, midline] Onset: 08-17-2020 Chronic Residual codes; unclassified (1 source) At risk of disease; Translations: [Other specified personal risk factors, not elsewhere classified] 01-31-2024 Episodic Residual codes; unclassified (1 source) Insomnia; Translations: [Insomnia, unspecified] 11-17-2024 Episodic Unclassified (3 sources) Obstructive sleep apnea syndrome; Translations: [Obstructive sleep apnea (adult) (pediatric)] Onset: 06-14-2016 06-14-2016 Chronic Viral infection (2 sources) Disease caused by 2019-nCoV; Translations: [COVID-19] 09-05-2021 Episodic Past or Other Problems Problem Classification Problem Date Documented Date Episodic/Chronic Miscellaneous mental health disorders (20 sources) Disorders of initiating and maintaining sleep; Translations: [Adjustment insomnia] Onset: 11-26-2008 11-26-2008 Episodic Other bone disease and musculoskeletal deformities (3 sources) Osteopenia; Translations: [Other specified disorders of bone density and structure, unspecified site] Onset: 03-07-2016 03-07-2016 Episodic Other bone disease and musculoskeletal deformities (20 sources) Disorder of skeletal system; Translations: [Disorder of bone, unspecified] Onset: 11-26-2008 11-26-2008 Episodic Other connective tissue disease (9 sources) Adhesive capsulitis of left shoulder; Translations: [Trochanteric bursitis] Onset: 01-07-2015 12-28-2016 Episodic Other female genital disorders (20 sources) Cervical intraepithelial neoplasia grade 2; Translations: [Moderate cervical dysplasia] Onset: 11-26-2008 11-26-2008 Episodic Other female genital disorders (20 sources) Stenosis of cervix; Translations: [Stricture and stenosis of cervix uteri] Onset: 11-26-2008 11-26-2008 Episodic Other non-traumatic joint disorders (9 sources) Pain in joint, shoulder region; Translations: [Pain in left shoulder] Onset: 01-07-2015 01-07-2015 Episodic Other screening for suspected conditions (not mental disorders or infectious disease) (7 sources) Patient encounter status; Translations: [Encounter for screening mammogram for malignant neoplasm of breast] Onset: 02-03-2025 Episodic Residual codes; unclassified (1 source) Insomnia, unspecified; Translations: [Insomnia, unspecified type] Onset: 11-17-2024 Episodic Unclassified (3 sources) Family history of alcoholism; Translations: [Family history of alcohol abuse and dependence] 03-07-2016 Episodic Results Test Name Value Interpretation Reference Range Facility [facility] 06-12-2025 [facility] Telephone (NEMDO[place]) -------- BALDO GRANT ([id number]) 1940 F Date Time Provider Department 06/12/25 [place] BROWN During your visit today, we recorded the following information about you: Anders Ely RN 06/12/2025 5:11 PM Signed Pt reports she has been taking gabapentin for about a year. Reports she takes 300 mg 2 tabs each evening for restless legs. Reports in the last several weeks she has been feeling foggy, and not with it at times. She and her looked up the side effects of gabapentin and her symptoms match those. Pt aware Torey Brown is gone for the day and will return on Sunday. Pt wants provider to know she is going to take one tab at hs tonight and for the weekend will try taking 1 tab at 3 pm and 1 tab in the evening. Pt asking Torey Brown to advise. Jacque Taylor LPN 06/15/2025 9:02 AM Signed Last OV 11/17/24. NORMA Delvalle Krystle, RN 06/16/2025 3:10 PM Signed Patient calls to check on status of request below. Notified patient request is pending review and once we have a message to give her from provider we will contact her back. Patient verbalized understanding. JOEY Miles Rebecca, APRN.CNP 06/17/2025 5:57 AM Signed Yes, that is fine to try the lower dose. Gabapentin can cause grogginess or fogginess. I see she has follow up 07/06/25. KALYN Naranjo Barbara, LPN 06/17/2025 10:11 AM Signed Patient notified of update, verbalizes understanding of instructions. Pt stated she will lower her Gabapentin to one a day. NORMA Delvalle Rebecca, APRN.CNP 06/17/2025 12:03 PM Signed Noted thanks [place] Brown APRN.CNP Allergies As of Date: 06/12/2025 Noted Allergy Reaction ATORVASTATIN 05/29/2016 14 - Other: See Comments PRAVASTATIN 05/29/2016 14 - Other: See Comments Date Reviewed: 11/17/2024 Reviewed by: Mack Mills LPN - Fully Assessed Reason for Visit: Medication Problem [65] Prescriptions as of 06/17/2025 - erenumab-aooe (AIMOVIG AUTOINJECTOR) 140 mg/mL auto-injector Inject 1 mL subcutaneously once every month. Do not shake. - gabapentin (NEURONTIN) 300 mg capsule Take 1 to 2 capsules at 3PM and 1 to 2 capsules at 7PM. - biotin 5 mg tab Take 3 mg by mouth. - SUMAtriptan (IMITREX) 100 mg tablet Take 50 mg to 100 mg at migraine onset. May repeat once in 2 hours if needed. - lisinopril (ZESTRIL, PRINIVIL) 5 mg tablet Take 5 mg by mouth once daily. - calcium carbonate/vitamin d3(CALCIUM 600 + D(3) 600 MG (1,500)-200 UNIT TAB) Take one(1) tablet twice daily. - ZETIA 10 MG TAB Take by mouth. - THERAPEUTIC MULTIVITAMIN ORAL TAB Take one(1) tablet daily. - OTC NUTRITIONAL SUPPLEMENT calcium 600 mg qd Problem List As Of Date 06/12/2025 Noted Resolved ATROPHIC VAGINITIS [N95.2] 11/26/2008 TRANSIENT INSOMNIA [F51.02] 11/26/2008 BONE AND CARTILAGE DIS NOS [M89.9, M94.9] 11/26/2008 MODERATE DYSPLASIA OF CERVIX [N87.1] 11/26/2008 STRICTURE OF CERVIX [N88.2] 11/26/2008 RLS (restless legs syndrome) [G25.81] 06/16/2024 Encounter Status:Closed by [place] BROWN on 06/17/25 [facility] 05-18-2025 [place] Telephone (SLEWST) -------- BALDO GRANT ([id number]) 1940 F Date Time Provider Department 05/18/25 [place] BROWN During your visit today, we recorded the following information about you: [place] Brown APRN.BRITTNEY 05/18/2025 10:33 AM Signed Please print appeal letter so I can sign for Nidra by Louis Brown APRN.Jacque Salcedo LPN 05/18/2025 4:25 PM Signed Appeal letter faxed to [employer] Appeals Team. Jacque Taylor LPN Allergies As of Date: 05/18/2025 Noted Allergy Reaction ATORVASTATIN 05/29/2016 14 - Other: See Comments PRAVASTATIN 05/29/2016 14 - Other: See Comments Date Reviewed: 11/17/2024 Reviewed by: Mack Mills LPN - Fully Assessed Prescriptions as of 05/18/2025 - erenumab-aooe (AIMOVIG AUTOINJECTOR) 140 mg/mL auto-injector Inject 1 mL subcutaneously once every month. Do not shake. - gabapentin (NEURONTIN) 300 mg capsule Take 1 to 2 capsules at 3PM and 1 to 2 capsules at 7PM. - biotin 5 mg tab Take 3 mg by mouth. - SUMAtriptan (IMITREX) 100 mg tablet Take 50 mg to 100 mg at migraine onset. May repeat once in 2 hours if needed. - lisinopril (ZESTRIL, PRINIVIL) 5 mg tablet Take 5 mg by mouth once daily. - calcium carbonate/vitamin d3(CALCIUM 600 + D(3) 600 MG (1,500)-200 UNIT TAB) Take one(1) tablet twice daily. - ZETIA 10 MG TAB Take by mouth. - THERAPEUTIC MULTIVITAMIN ORAL TAB Take one(1) tablet daily. - OTC NUTRITIONAL SUPPLEMENT calcium 600 mg qd Problem List As Of Date 05/18/2025 Noted Resolved ATROPHIC VAGINITIS [N95.2] 11/26/2008 TRANSIENT INSOMNIA [F51.02] 11/26/2008 BONE AND CARTILAGE DIS NOS [M89.9, M94.9] 11/26/2008 MODERATE DYSPLASIA OF CERVIX [N87.1] 11/26/2008 STRICTURE OF CERVIX [N88.2] 11/26/2008 RLS (restless legs syndrome) [G25.81] 06/16/2024 Letter Text Encounter Status:Closed by JACQUE TAYLOR on 05/18/25 [facility] 02-09-2025 CNPN Telephone ([facility]) -------- BALDO GRANT ([id number]) 1940 F Date Time Provider Department 02/09/25 ENMANUEL PHIPPS [facility] During your visit today, we recorded the following information about you: Enmanuel Phipps RN 02/09/2025 1:23 PM Signed Ambulatory Pharmacy Prior Authorization Note Provider Intervention Required?: No - Pharmacy completed on your behalf. Was the PA documented within the ePA workqueue?: Yes View the status history of the prior authorization in the Auth Tab within Chart Review Additional Information: For questions relating to this submission, please contact [facility] at [phone] Emely Ferro RN 02/11/2025 3:46 PM Signed [employer] approved 10/29/2024-02/10/2026 Patient notified Allergies As of Date: 02/09/2025 Noted Allergy Reaction ATORVASTATIN 05/29/2016 14 - Other: See Comments PRAVASTATIN 05/29/2016 14 - Other: See Comments Date Reviewed: 11/17/2024 Reviewed by: Mack Mills LPN - Fully Assessed Reason for Visit: Insurance Authorization [[id number]] [employer]IM[employer] [Other] Prescriptions as of 02/11/2025 - erenumab-aooe (AIMOVIG AUTOINJECTOR) 140 mg/mL auto-injector Inject 1 mL subcutaneously once every month. Do not shake. - gabapentin (NEURONTIN) 300 mg capsule Take 1 to 2 capsules at 3PM and 1 to 2 capsules at 7PM. - biotin 5 mg tab Take 3 mg by mouth. - SUMAtriptan (IMITREX) 100 mg tablet Take 50 mg to 100 mg at migraine onset. May repeat once in 2 hours if needed. - lisinopril (ZESTRIL, PRINIVIL) 5 mg tablet Take 5 mg by mouth once daily. - calcium carbonate/vitamin d3(CALCIUM 600 + D(3) 600 MG (1,500)-200 UNIT TAB) Take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 L506.1000 #### [facility] [address] [place], [address] Erythrocyte distribution width (RBC) [Ratio] 12.6 % Normal 11.6-14.6 [facility] Comment on above: Performed By: #### L 500.4050, L100.0100, L500.4100, L506.1000 #### [facility] [address] [place], [address] Hematocrit (Bld) [Volume fraction] 37.6 % Normal 37-47 [facility] Comment on above: Performed By: #### L 500.4050, L100.0100, L500.4100, L506.1000 #### [facility] [address] [place], [address] Hemoglobin (Bld) [Mass/Vol] 12.6 g/dL Normal 12.0-15.0 [facility] Comment on above: Performed By: #### L 500.4050, L100.0100, L500.4100, L506.1000 #### [facility] [address] [place], [address] IG% 0.400 Normal 0.0-0.9 [facility] Comment on above: Result Comment: IG% - Immature Granulocytes (promyelocytes, myelocytes and metamyelocytes) > 1% indicates that a LEFT SHIFT is Present. Performed By: #### L 500.4050, L100.0100, L500.4100, L506.1000 #### [facility] [address] [place], [address] Lymphocytes/100 WBC (Bld) 34.6 % Normal 19-41 [facility] Comment on above: Performed By: #### L 500.4050, L100.0100, L500.4100, L506.1000 #### [facility] [address] [place], [address] MCH (RBC) [Entitic mass] 32.4 pg High 27.0-32.0 [facility] Comment on above: Performed By: #### L 500.4050, L100.0100, L500.4100, L506.1000 #### [facility] [address] [place], [address] MCHC (RBC) [Mass/Vol] 33.5 g/dL Normal 32-36 [facility] Comment on above: Performed By: #### L 500.4050, L100.0100, L500.4100, L506.1000 #### [facility] [address] [place], [address] MCV (RBC) [Entitic vol] 96.7 fL Normal 81-99 [facility] Comment on above: Performed By: #### L 500.4050, L100.0100, L500.4100, L506.1000 #### [facility] [address] [place], [address] Monocytes/100 WBC (Bld) 11.5 % High 0-10 [facility] Comment on above: Performed By: #### L 500.4050, L100.0100, L500.4100, L506.1000 #### [facility] [address] [place], [address] Neutrophils/100 WBC (Bld) 49.7 % Normal 47-70 [facility] Comment on above: Performed By: #### L 500.4050, L100.0100, L500.4100, L506.1000 #### [facility] [address] [place], [address] Nucleated RBC (Bld) [#/Vol] 0 10*3/uL Normal 0-5 [facility] Comment on above: Performed By: #### L 500.4050, L100.0100, L500.4100, L506.1000 #### [facility] [address] [place], [address] Platelet mean volume (Bld) [Entitic vol] 10.3 fL Normal 6.2-12.0 [facility] Comment on above: Performed By: #### L 500.4050, L100.0100, L500.4100, L506.1000 #### [facility] [address] [place], [address] Platelets (Bld) [#/Vol] 248 10*3/uL Normal 150-450 [facility] Comment on above: Performed By: #### L 500.4050, L100.0100, L500.4100, L506.1000 #### [facility] [address] [place], [address] RBC (Bld) [#/Vol] 3.89 10*6/uL Low 4.2-5.4 [facility] Comment on above: Performed By: #### L 500.4050, L100.0100, L500.4100, L506.1000 #### [facility] [address] [place], [address] RDW SD 44.9 fl High 35.1-43.9 [facility] Comment on above: Performed By: #### L 500.4050, L100.0100, L500.4100, L506.1000 #### [facility] [address] [place], [address] WBC (Bld) [#/Vol] 4.5 10*3/uL Normal 4.4-11.0 [facility] Comment on above: Performed By: #### L 500.4050, L100.0100, L500.4100, L506.1000 #### [facility] [address] [place], [address] [facility] 08-21-2024 Albumin [Mass/Vol] 3.6 g/dL Normal 3.2-5.0 [facility] Comment on above: Performed By: #### L 500.4050, L100.0100, L500.4100, L506.1000 #### [facility] [address] [place], [address] Albumin/Globulin [Mass ratio] 1.1 {ratio} Normal 0.9-2.4 [facility] Comment on above: Performed By: #### L 500.4050, L100.0100, L500.4100, L506.1000 #### [facility] [address] [place], [address] ALK P 67 U/L Normal 45-117 [facility] Comment on above: Performed By: #### L 500.4050, L100.0100, L500.4100, L506.1000 #### [facility] [address] [place], [address] ALT [Catalytic activity/Vol] 30 U/L Normal 13-56 [facility] Comment on above: Performed By: #### L 500.4050, L100.0100, L500.4100, L506.1000 #### [facility] [address] [place], [address] AST [Catalytic activity/Vol] 15 U/L Normal 15-37 [facility] Comment on above: Performed By: #### L 500.4050, L100.0100, L500.4100, L506.1000 #### [facility] [address] [place], [address] Bilirubin [Mass/Vol] 0.30 mg/dL Normal 0.20-1.00 [facility] Comment on above: Result Comment: For patients on eltrombopag therapy, use of Dimension [place] TBIL is not recommended. Performed By: #### L 500.4050, L100.0100, L500.4100, L506.1000 #### [facility] [address] [place], [address] BUN/CRE 22.8 RATIO High 10-20 [facility] Comment on above: Performed By: #### L 500.4050, L100.0100, L500.4100, L506.1000 #### [facility] [address] [place], [address] CA,Total 9.4 mg/dL Normal 8.5-10.1 [facility] Comment on above: Performed By: #### L 500.4050, L100.0100, L500.4100, L506.1000 #### [facility] [address] [place], [address] Chloride [Moles/Vol] 109 mmol/L High 98-107 [facility] Comment on above: Performed By: #### L 500.4050, L100.0100, L500.4100, L506.1000 #### [facility] [address] [place], [address] CO2 [Moles/Vol] 27.0 mmol/L Normal 21.0-32.0 [facility] Comment on above: Performed By: #### L 500.4050, L100.0100, L500.4100, L506.1000 #### [facility] [address] [place], [address] Creatinine [Mass/Vol] 0.79 mg/dL Normal 0.55-1.02 [facility] Comment on above: Result Comment: The validity of the calculated GFR GFRAA in patients over 70 years has not been determined. Clinical correlation is essential. Performed By: #### L 500.4050, L100.0100, L500.4100, L506.1000 #### [facility] [address] [place], [address] EST GFR - AA 90 mL/min Normal >60 [facility] Comment on above: Result Comment: Afri can Lao GFR Calc Performed By: #### L 500.4050, L100.0100, L500.4100, L506.1000 #### [facility] [address] [place], [address] GAP 5 Normal 5-15 [facility] Comment on above: Performed By: #### L 500.4050, L100.0100, L500.4100, L506.1000 #### [facility] [address] [place], [address] GFR/1.73 sq M.predicted among non-blacks MDRD (S/P/Bld) [Vol rate/Area] 74 mL/min/{1.73_m2} Normal >60 [facility] Comment on above: Result Comment: Non- GFR Calc Performed By: #### L 500.4050, L100.0100, L500.4100, L506.1000 #### [facility] [address] [place], [address] Globulin (S) [Mass/Vol] 3.4 g/dL Normal 2.2-4.2 [facility] Comment on above: Performed By: #### L 500.4050, L100.0100, L500.4100, L506.1000 #### [facility] [address] [place], [address] Glucose [Mass/Vol] 95 mg/dL Normal 74-106 [facility] Comment on above: Performed By: #### L 500.4050, L100.0100, L500.4100, L506.1000 #### [facility] [address] [place], [address] Potassium [Moles/Vol] 4.7 mmol/L Normal 3.5-5.1 [facility] Comment on above: Performed By: #### L 500.4050, L100.0100, L500.4100, L506.1000 #### [facility] [address] [place], [address] Sodium [Moles/Vol] 140 mmol/L Normal 136-145 [facility] Comment on above: Performed By: #### L 500.4050, L100.0100, L500.4100, L506.1000 #### [facility] [address] [place], [address] T PROT 7.0 g/dL Normal 6.4-8.2 [facility] Comment on above: Performed By: #### L 500.4050, L100.0100, L500.4100, L506.1000 #### [facility] [address] [place], [address] Urea nitrogen [Mass/Vol] 18 mg/dL Normal 7-18 [facility] Comment on above: Performed By: #### L 500.4050, L100.0100, L500.4100, L506.1000 #### [facility] [address] [place], [address] Lipid Profileon 08-21-2024 Cholesterol [Mass/Vol] 276 mg/dL High 200 [facility] Comment on above: Result Comment: <200 mg/dL Desirable 200-240 mg/dL Borderline >240 mg/dL High Risk Performed By: #### L 500.4050, L100.0100, L500.4100, L506.1000 #### [facility] [address] [place], [address] Cholesterol in HDL [Mass/Vol] 54 mg/dL Normal [facility] Comment on above: Result Comment: The drugs N-Acetylcysteine and Metamizole may falsely depress this assay. Reference Range HDL <40 mg/dL Low HDL Cholesterol HDL >or= 60 mg/dL High HDL Cholesterol Performed By: #### L 500.4050, L100.0100, L500.4100, L506.1000 #### [facility] [address] [place], [address] Cholesterol in LDL [Mass/Vol] 182 mg/dL High 0-130 [facility] Comment on above: Performed By: #### L 500.4050, L100.0100, L500.4100, L506.1000 #### [facility] [address] [place], [address] Cholesterol in VLDL [Mass/Vol] 40 mg/dL Normal 5-40 [facility] Comment on above: Performed By: #### L 500.4050, L100.0100, L500.4100, L506.1000 #### [facility] [address] [place], [address] Triglyceride [Mass/Vol] 200 mg/dL High [facility] Comment on above: Result Comment: The drugs N-Acetylcysteine and Metamizole may falsely depress this assay. Serum Triglycerides Reference Interval Normal <150 mg/dL Borderline high 150 - 199 mg/dL High 200 - 499 mg/dL Very High > or = 500 mg/dL Performed By: #### L 500.4050, L100.0100, L500.4100, L506.1000 #### [facility] [address] [place], [address] Vitamin D,25 Hydroxyon 08-21 Vitamin D 25-OH 23.0 ng/mL Normal [facility] Comment on above: Result Comment: Ramandeep min D 25(OH) Status Range Deficiency <20 ng/mL (50nmol/L) Insufficiency 20 - 30 ng/mL (50 - 75 nmol/L) Sufficiency 30 - 100 ng/mL (75 - 250 nmol/L) Toxicity >100 ng/mL (>250 nmol/L) Performed By: #### L 500.4050, L100.0100, L500.4100, L506.1000 #### [facility] [address] [place], [place], [address] CNOVon 07-22-2024 CNOV Office Visit (OBGYWM ) -------- BALDO GRANT ([id number]) 1940 F Date Time Provider Department 07/22/24 8:40 AM [facility] [facility] During your visit today, we recorded the following information about you: Blood pressure Weight Height 116/70 74.4 kg 1.556 m Indiana Auguste MD 07/22/2024 9:08 AM Signed José Miguel is a 84 year old who presents for an annual gynecologic exam without manufacturing leader c/o.. Last Pap: 02/08/2011 normal HPV: 09/29/2005 negative History of abnormal pap: No Last mammogram: 2023 normal OB History T0 L4 SAB0 IAB0 Ectopic0 Multiple0 Live Births0 Supplier Manager History LMP: 10/29/1996, Postmenopausal Age at Menarche: Age at First : Age at Menopause: Supplier Manager History Comments: Sexual Activity: Yes; Male Contraception: Surgical, Tubal Ligation PAST MEDICAL HISTORY Diagnosis Date Disorder of bone and cartilage, unspecified Mixed hyperlipidemia Hyperlipidemia Moderate dysplasia of cervix 10/29/1997 ? MARIA ELENA 3 Osteoarthrosis, unspecified whether generalized or localized, other specified sites Osteoarthritis Osteopenia BMD 01/31/2024 PAST SURGICAL HISTORY Procedure Laterality Date BREAST BIOPSY NEEDLE RIGHT COLONOSCOPY FLX DX W/COLLJ SPEC WHEN PFRMD ColonoscopyWITH POLYPECTOMY CONIZATION CERVIX W/WO DANDC RPR ELTRD EXC 1997 LEEP-Cervix Done for CIN3; cervicitis only was found LIG/TRNSXJ FLP TUBE ABDL/VAG APPR UNI/BI Tubal ligation FAMILY HISTORY Problem Relation Age of Onset Hypertension Mother Diabetes Father Heart Father Hypertension Father Cancer Sister Lung Colon Cancer Brother Cancer Maternal Grandmother uterine SOCIAL HISTORY Social History Tobacco Use Smoking status: Never Smokeless tobacco: Never Vaping Use Vaping status: Never Used Substance Use Topics Alcohol use: Yes Comment: rarely 1 per month Drug use: No Allergies and current medication updated:Yes SENSITIVE EXAM: The sensitive examination was discussed with the Patient or Patient's Authorized Abstract Checker. As applicable, any other physician, advance practice provider, medical student, or other health professional student that will be observing or involved in the sensitive examination for educational or training purposes was discussed with the Patient or Authorized Abstract Checker. The Patient or Authorized Abstract Checker has agreed to proceed with the sensitive examination. (Sensitive examination includes inspection and/or palpation of the breasts, pelvis, prostate and anorectal regions). EXAM: BP 116/70 Ht 5' 1.25 (1.56m) Wt 164 lb (74.4kg) LMP 10/29/1996 BMI 30.73 kg/(m2). GENERAL: pleasant, female in no apparent distress BREAST: soft, non-tender, symmetric, no dominant mass, normal nipple-areolar complex, no lymphadenopathy, and no nipple discharge CHEST: Normal inspiratory effort ABDOMEN: soft, non-tender, and no masses PELVIC: external genitalia normal, normal Bartholin's glands, urethra, Grano's glands, no vulvar lesions, physiologic discharge present, normal appearing perineal body and perianal region, cervix surgically absent, cystocele 3rd degree, rectocele 1st degree, atrophic flattened epithelium BIMANUAL: no adnexal masses, non-tender, and uterus surgically absent RECTOVAGINAL: deferred. ASSESSMENT/PLAN: 1) Health maintenance: Pap/HPV screening no longer needed Mammogram ordered BMD: up to date 2) Follow up one year or sooner as needed Indiana Auguste MD Allergies As of Date: 07/22/2024 Noted Allergy Reaction ATORVASTATIN 05/29/2016 14 - Other: See Comments PRAVASTATIN 05/29/2016 14 - Other: See Comments Date Reviewed: 07/22/2024 Reviewed by: Indiana Auguste MD - Fully Assessed Reason for Visit: Yearly Exam [187] Primary Visit Diagnosis:Encounter for routine gynecologic examination in Medicare patient [Z01.419] Other Visit Diagnosis:Encounter for screening mammogram for breast cancer [Z12.31] Order(s):[facility]ING [facility] [[id number]] Order #: [id number] FUTURE Prescriptions as of 07/22/2024 - biotin 5 mg tab Take 3 mg by mouth. - pramipexole (MIRAPEX) 0.125 mg tablet Week 1: take 2 tablets at 3 PM and 1 tablet at 7 PM, Week 2: take 1 tablet at 3 PM and 1 tablet at 7 PM, Week 3: take 1 tablet at 3 PM, then stop - gabapentin (NEURONTIN) 300 mg capsule Take 1 to 2 capsules at 3PM and 1 capsules at 7PM. - erenumab-aooe (AIMOVIG AUTOINJECTOR) 140 mg/mL auto-injector Inject 1 mL subcutaneously once every month. Do not shake. - SUMAtriptan (IMITREX) 100 mg tablet Take 50 mg to 100 mg at migraine onset. May repeat once in 2 hours if needed. - lisinopril (ZESTRIL, PRINIVIL) 5 mg tablet Take 5 mg by mouth once daily. - calcium carbonate/vitamin d3(CALCIUM 600 + D(3) 600 MG (1,500)-200 UNIT TAB) Take one(1) tablet twice daily. - ZETIA 10 MG TAB Take by mouth. - THERAPEUTIC MULTIVIT (more content not included)... Normal [facility] FERRITINon 03-17-2024 Ferritin [Mass/Vol] 128.0 ng/mL 14.7 - 205.1 ng/mL [facility] Ferritin [Mass/Vol]on 2023 Interpretation and review of laboratory results Normal [facility] Iron and Iron binding capaci ty panelon 03-17-2024 Interpretation and review of laboratory results Normal [facility] Iron [Mass/Vol] 135 ug/dL 41 - 186 ug/dL [facility] Iron binding capacity [Mass/Vol] 253 ug/dL 232 - 386 ug/dL [facility] Iron/TIBC [Molar ratio] 53.4 % 15.0 - 57.0 % [facility] Absolute lymphocyte countOrd ered By: Rupali Cline on 08-15-2023 Lymphocytes Auto (Unsp spec) [#/Vol] 1.68 10*3/uL 0.83-4.51 [facility] Basophil percentageOrdered B y: Rupali Cline on 08-15-2023 Basophils/100 WBC (Bld) 1.6 % 0-1 [facility] Bilirubin [Mass/Vol] 0.30 mg/dL 0.20-1.00 [facility] Comment on above: For patients on eltr ombopag therapy, use of Dimension [place] TBIL is not recommended. Chloride [Moles/Vol] 110 mmol/L 98-107 [facility] Cholesterol [Mass/Vol] 238 mg/dL <200 [facility] Comment on above: <200 mg/dL Desirable 200-240 mg/dL Borderline >240 mg/dL High Risk Eosinophils/100 WBC (Bld) 2.9 % 0-5 [facility] Glucose [Mass/Vol] 99 mg/dL 74-106 [facility] Neutrophils (Bld) [#/Vol] 2.1 10*3/uL 2.0-7.7 [facility] Neutrophils/100 WBC (Bld) 47.2 % 47-70 [facility] Potassium [Moles/Vol] 4.6 mmol/L 3.5-5.1 [facility] Protein [Mass/Vol] 7.3 g/dL 6.4-8.2 [facility] Sodium [Moles/Vol] 141 mmol/L 136-145 [facility] Triglyceride [Mass/Vol] 172 mg/dL <199 [facility] Comment on above: The drugs N-Acetylcy steine and Metamizole may falsely depress this assay.Serum Triglycerides Reference Interval Normal <150 mg/dL Borderline high 150 - 199 mg/dL High 200 - 499 mg/dL Very High > or = 500 mg/dL WBC (Bld) [#/Vol] 4.5 10*3/uL 4.4-11.0 [facility] Blood erythrocytes count (nu mber/volume)Ordered By: Rupali Cline on 08-15-2023 RBC (Bld) [#/Vol] 4.01 10*6/uL 4.2-5.4 [facility] Blood hemoglobin measurement (mass/volume)Ordered By: Rupali Cline on 08-15-2023 Hemoglobin (Bld) [Mass/Vol] 12.7 g/dL 12.0-15.0 [facility] Blood lymphocytes/100 leukoc ytesOrdered By: Rupali Cline on 08-15-2023 Lymphocytes/100 WBC (Bld) 37.6 % 19-41 [facility] Blood monocytes/100 leukocyt esOrdered By: Rupali Cline on 08-15-2023 Monocytes/100 WBC (Bld) 10.5 % 0-10 [facility] Blood platelet mean volumeOr dered By: Rupali Cline on 08-15-2023 Platelet mean volume (Bld) [Entitic vol] 10.5 fL 6.2-12.0 [facility] Determination of erythrocyte mean corpuscular volume (MCV)Ordered By: Rupali Cline on 08-15-2023 MCV (RBC) [Entitic vol] 97.5 fL 81-99 [facility] Hematocrit Auto (Bld) [Volum e fraction]Ordered By: Rupali Cline on 08-15-2023 Hematocrit (Bld) [Volume fraction] 39.1 % 37-47 [facility] - Chemistry and C hemistry - challengeOrdered By: Rupali Cline on 08-15-2023 ALP [Catalytic activity/Vol] 66 U/L 45-117 [facility] ALT [Catalytic activity/Vol] 29 U/L 13-56 [facility] CO2 [Moles/Vol] 26.0 mmol/L 21.0-32.0 [facility] Globulin (S) [Mass/Vol] 3.7 g/dL 2.2-4.2 [facility] Urea nitrogen/Creatinine [Mass ratio] 20.2 mg/mg 10-20 [facility] - Hematology and Cell countsOrdered By: Rupali Cline on 08-15-2023 Erythrocyte distribution width (RBC) [Entitic vol] 46.4 fL 35.1-43.9 [facility] Erythrocyte distribution width (RBC) [Ratio] 12.9 % 11.6-14.6 [facility] Immature granulocytes/100 WBC (Bld) 0.200 % 0.0-0.9 [facility] Comment on above: IG% - Immature Granu locytes (promyelocytes, myelocytes and metamyelocytes) > 1% indicates that a LEFT SHIFT is Present. MCH (RBC) [Entitic mass] 31.7 pg 27.0-32.0 [facility] Nucleated RBC/100 WBC (Bld) [Ratio] 0 % 0-5 [facility] MCHC Auto (RBC) [Mass/Vol]Or dered By: Rupali Cline on 08-15-2023 MCHC (RBC) [Mass/Vol] 32.5 g/dL 32-36 [facility] No Panel InformationOrdered By: Rupali Cline on 08-15-2023 Estimated GFR (MDRD) Amer 105 mL/min >60 [facility] Comment on above: GFR Calc Estimated GFR (MDRD) Non-Af Amer 87 mL/min >60 [facility] Comment on above: Non- GFR Calc Thyroid Stimulating Hormone (TSH) 1.19 uIU/mL 0.358-3.74 [facility] Vitamin D 25-Hydroxy 31.2 ng/mL [facility] Comment on above: Vitamin D 25(OH) Sta tus Range Deficiency <20 ng/mL (50nmol/L) Insufficiency 20 - 30 ng/mL (50 - 75 nmol/L) Sufficiency 30 - 100 ng/mL (75 - 250 nmol/L) Toxicity >100 ng/mL (>250 nmol/L) Platelets bldOrdered By: Malaika Cline on 08-15-2023 Platelets (Bld) [#/Vol] 242 10*3/uL 150-450 [facility] Serum or plasma albumin jairo urement (mass/volume)Ordered By: Rupali Cline on 08-15-2023 Albumin [Mass/Vol] 3.6 g/dL 3.2-5.0 [facility] Serum or plasma albumin/glob ulin mass ratioOrdered By: Rupali Cline on 08-15-2023 Albumin/Globulin [Mass ratio] 1.0 {ratio} 0.9-2.4 [facility] Serum or plasma calcium jairo urement (mass/volume)Ordered By: Rupali Cline on 08-15-2023 Calcium [Mass/Vol] 9.2 mg/dL 8.5-10.1 [facility] Serum or plasma cholesterol in HDL measurement (mass/volume)Ordered By: Rupali Cline on 08-15-2023 Cholesterol in HDL [Mass/Vol] 54 mg/dL >40 [facility] Comment on above: The drugs N-Acetylcy steine and Metamizole may falsely depress this assay. Reference Range HDL <40 mg/dL Low HDL Cholesterol HDL >or= 60 mg/dL High HDL Cholesterol Serum or plasma cholesterol in VLDL measurement (mass/volume)Ordered By: Rupali Cline on 08-15-2023 Cholesterol in VLDL [Mass/Vol] 34 mg/dL 5-40 [facility] Serum or plasma creatinine m easurement (mass/volume)Ordered By: Rupali Cline on 08-15-2023 Creatinine [Mass/Vol] 0.69 mg/dL 0.55-1.02 [facility] Comment on above: The validity of the calculated GFR & GFRAA in patients over 70 years has not been determined. Clinical correlation is essential. Serum or plasma low density lipoprotein (LDL) cholesterol measurement (mass/volume)Ordered By: Rupali Cline on 08-15-2023 Cholesterol in LDL [Mass/Vol] 150 mg/dL 0-130 [facility] Serum or plasma urea nitroge n measurement (mass/volume)Ordered By: Rupali Cline on 08-15-2023 Urea nitrogen [Mass/Vol] 14 mg/dL 7-18 [facility] Thin prep Papanicolaou smear with manual screeningOrdered By: Rupali Cline on 08-15-2023 Thin prep Papanicolaou smear with manual screening 21 U/L 15-37 [facility] Thin prep Papanicolaou smear with manual screening 5 5-15 [facility] XR FOOT GENERAL 3V AP/LAT/OB L RIGHTon 04-09-2023 [facility] DARBY SCREENING W TOMOon 01-15 [facility] UA DIP, URINE (POC)on 2021 BILIRUBIN UA (POCT) Negative Negative [facility] CLARITY UA (POCT) Cloudy [facility] COLOR UA (POCT) Yellow [facility] GLUCOSE UA (POCT) Negative Negative mg/dL [facility] HEMOGLOBIN/BLOOD UA (POCT) Large Abnormal Negative [facility] KETONE UA (POCT) Negative Negative mg/dL [facility] LEUKOCYTES UA (POCT) Moderate Abnormal Negative [facility] NITRITE UA (POCT) Positive Abnormal Negative [facility] PH UA (POCT) 5.5 4.5 - 8.0 [facility] Protein Ql (U) 100 mg/dL Abnormal Negative mg/dL [facility] SPECIFIC GRAVITY UA (POCT) >=1.030 1.005 - 1.030 [facility] UROBILINOGEN UA (POCT) 0.2 E.U./dL Normal E.U./dL [facility] Absolute lymphocyte counton 08-17-2022 Lymphocytes Auto (Unsp spec) [#/Vol] 1.91 10*3/uL 0.83-4.51 [facility] Work Phone: Basophil percentageon 2021 Basophils/100 WBC (Bld) 1.4 % 0-1 [facility] Work Phone: Bilirubin [Mass/Vol] 0.30 mg/dL 0.20-1.00 [facility] Work Phone: Comment on above: For patients on eltr ombopag therapy, use of Dimension [place] TBIL is not recommended. Chloride [Moles/Vol] 106 mmol/L 98-107 [facility] Work Phone: Cholesterol [Mass/Vol] 251 mg/dL <200 [facility] Work Phone: Comment on above: <200 mg/dL Desirable 200-240 mg/dL Borderline >240 mg/dL High Risk Eosinophils/100 WBC (Bld) 2.5 % 0-5 [facility] Work Phone: Glucose [Mass/Vol] 93 mg/dL 74-106 [facility] Work Phone: Neutrophils (Bld) [#/Vol] 1.9 10*3/uL 2.0-7.7 [facility] Work Phone: Neutrophils/100 WBC (Bld) 42.3 % 47-70 [facility] Work Phone: Potassium [Moles/Vol] 4.1 mmol/L 3.5-5.1 [facility] Work Phone: Protein [Mass/Vol] 7.2 g/dL 6.4-8.2 [facility] Work Phone: Sodium [Moles/Vol] 140 mmol/L 136-145 [facility] Work Phone: Triglyceride [Mass/Vol] 175 mg/dL <199 [facility] Work Phone: Comment on above: The drugs N-Acetylcy steine and Metamizole may falsely depress this assay.Serum Triglycerides Reference Interval Normal <150 mg/dL Borderline high 150 - 199 mg/dL High 200 - 499 mg/dL Very High > or = 500 mg/dL WBC (Bld) [#/Vol] 4.4 10*3/uL 4.4-11.0 [facility] Work Phone: Blood erythrocytes count (nu mber/volume)on 08-17-2022 RBC (Bld) [#/Vol] 4.01 10*6/uL 4.2-5.4 [facility] Work Phone: Blood hemoglobin measurement (mass/volume)on 08-17-2022 Hemoglobin (Bld) [Mass/Vol] 12.5 g/dL 12.0-15.0 [facility] Work Phone: Blood lymphocytes/100 leukoc yteson 08-17-2022 Lymphocytes/100 WBC (Bld) 43.0 % 19-41 [facility] Work Phone: Blood monocytes/100 leukocyt eson 08-17-2022 Monocytes/100 WBC (Bld) 10.6 % 0-10 [facility] Work Phone: Blood platelet mean volumeon 08-17-2022 Platelet mean volume (Bld) [Entitic vol] 10.3 fL 6.2-12.0 [facility] Work Phone: Determination of erythrocyte mean corpuscular volume (MCV)on 08-17-2022 MCV (RBC) [Entitic vol] 97.0 fL 81-99 [facility] Work Phone: Hematocrit Auto (Bld) [Volum e fraction]on 08-17-2022 Hematocrit (Bld) [Volume fraction] 38.9 % 37-47 [facility] Work Phone: Laboratory - Chemistry and C hemistry - challengeon 08-17-2022 ALP [Catalytic activity/Vol] 87 U/L 45-117 [facility] Work Phone: ALT [Catalytic activity/Vol] 29 U/L 13-56 [facility] Work Phone: CO2 [Moles/Vol] 28.0 mmol/L 21.0-32.0 [facility] Work Phone: Globulin (S) [Mass/Vol] 3.8 g/dL 2.2-4.2 [facility] Work Phone: Urea nitrogen/Creatinine [Mass ratio] 20.5 mg/mg 1020 [facility] Work Phone: Laboratory - Hematology and Cell countson 08-17-2022 Erythrocyte distribution width (RBC) [Entitic vol] 47.0 fL 35.1-43.9 [facility] Work Phone: Erythrocyte distribution width (RBC) [Ratio] 13.1 % 11.6-14.6 [facility] Work Phone: Immature granulocytes/100 WBC (Bld) 0.200 % 0.0-0.9 [facility] Work Phone: Comment on above: IG% - Immature Granu locytes (promyelocytes, myelocytes and metamyelocytes) > 1% indicates that a LEFT SHIFT is Present. MCH (RBC) [Entitic mass] 31.2 pg 27.0-32.0 [facility] Work Phone: Nucleated RBC/100 WBC (Bld) [Ratio] 0 % 0-5 [facility] Work Phone: MCHC Auto (RBC) [Mass/Vol]on 08-17-2022 MCHC (RBC) [Mass/Vol] 32.1 g/dL 32-36 [facility] Work Phone: No Panel Informationon 08-17 Estimated GFR (MDRD) Amer 80 mL/min >60 [facility] Work Phone: Comment on above: GFR Calc Estimated GFR (MDRD) Non-Af Amer 66 mL/min >60 [facility] Work Phone: Comment on above: Non- GFR Calc Vitamin D 25-Hydroxy 32.4 ng/mL [facility] Work Phone: Comment on above: Vitamin D 25(OH) Sta tus Range Deficiency <20 ng/mL (50nmol/L) Insufficiency 20 - 30 ng/mL (50 - 75 nmol/L) Sufficiency 30 - 100 ng/mL (75 - 250 nmol/L) Toxicity >100 ng/mL (>250 nmol/L) Platelets bldon 08-17-2022 Platelets (Bld) [#/Vol] 269 10*3/uL 150-450 [facility] Work Phone: Serum or plasma albumin jairo urement (mass/volume)on 08-17-2022 Albumin [Mass/Vol] 3.4 g/dL 3.2-5.0 [facility] Work Phone: Serum or plasma albumin/glob ulin mass ratioon 08-17-2022 Albumin/Globulin [Mass ratio] 0.9 {ratio} 0.9-2.4 [facility] Work Phone: Serum or plasma calcium jairo urement (mass/volume)on 08-17-2022 Calcium [Mass/Vol] 9.5 mg/dL 8.5-10.1 [facility] Work Phone: Serum or plasma cholesterol in HDL measurement (mass/volume)on 08-17-2022 Cholesterol in HDL [Mass/Vol] 49 mg/dL >40 [facility] Work Phone: Comment on above: The drugs N-Acetylcy steine and Metamizole may falsely depress this assay. Reference Range HDL <40 mg/dL Low HDL Cholesterol HDL >or= 60 mg/dL High HDL Cholesterol Serum or plasma cholesterol in VLDL measurement (mass/volume)on 08-17-2022 Cholesterol in VLDL [Mass/Vol] 35 mg/dL 5-40 [facility] Work Phone: Serum or plasma creatinine m easurement (mass/volume)on 08-17-2022 Creatinine [Mass/Vol] 0.88 mg/dL 0.55-1.02 [facility] Work Phone: Comment on above: The validity of the calculated GFR & GFRAA in patients over 70 years has not been determined. Clinical correlation is essential. Serum or plasma low density lipoprotein (LDL) cholesterol measurement (mass/volume)on 08-17-2022 Cholesterol in LDL [Mass/Vol] 167 mg/dL 0-130 [facility] Work Phone: Serum or plasma urea nitroge n measurement (mass/volume)on 08-17-2022 Urea nitrogen [Mass/Vol] 18 mg/dL 7-18 [facility] Work Phone: Thin prep Papanicolaou smear with manual screeningon 08-17-2022 Thin prep Papanicolaou smear with manual screening 16 U/L 15-37 [facility] Work Phone: Thin prep Papanicolaou smear with manual screening 6 5-15 [facility] Work Phone: MRI BRAIN WO IVCONon 2 022 MRI BRAIN WO IVCON * * *Final Report* * * DATE OF EXAM: Dec 28 2021 4:31PM HCM 0294 - MRI BRAIN WO IVCON / PROCEDURE REASON: Chronic mixed headache syndrome * * * * Physician Interpretation * * * * RESULT: COMPARISONS: None. HISTORY: Chronic mixed headache syndrome. TECHNIQUE: MRI brain without contrast. MQ: [id number]. RESULT: MRI BRAIN: Acute abnormality: None. Nonspecific patchy and punctate white matter T2 hyperintense foci are identified which are most consistent with microvascular ischemia. Extremely unlikely differential that may be excluded clinically would be of migraines versus vasculitis versus demyelinating disease. Age expected unremarkable remaining sulci, gyri, ventricles, CSF spaces and brain. No acute intracranial abnormality is noted. No acute infarct/hemorrhage, mass effect or collections. Normal bones and soft tissues. IMPRESSION: Age-appropriate changes without acute intracranial abnormality. Transcribed Using Voice Recognition Transcribe Date/Time: Dec 28 2021 4:36P Dictated by: TAMELA BARTH MD This examination was interpreted and the report reviewed and electronically signed by: TAMELA BARTH MD on Dec 28 2021 4:38PM EST [id number] Normal [facility] Procedure Noteon [place] Procedure Note [facility] Final Surgical Pathology Rep [facility] 11-07-2017 Final Surgical Pathology Report . Pathology ReportsAccession: Collected Date/Time: Received Date/Time: Pathologist:[id number] 11/05/2017 09:40 EST 11/06/2017 07:21 EST MD KAMILAH THAYER Final Surgical Pathology ReportDIAGNOSIS:RIGHT COLON, BIOPSY: SLIGHTLY POLYPOID FRAGMENTS OF COLONIC MUCOSA WITH NO SPECIFIC PATHOLOGIC CHANGES.COMMENT:MILE Ames# [id number] INFORMATION:Procedure: COLONOSCOPY WITH BIOPSY OF POLYP RIGHT COLONPreoperative diagnosis: HISTORY HIGH GRADE DYSPLASIA POLYPPostoperative diagnosis: HISTORY HIGH GRADE DYSPLASIA POLYPSPECIMEN:A POLYP, COLORECT - BIOPSY POLYP RIGHT COLONGROSS DESCRIPTION:_Received in formalin labeled right colon polyp biopsy are 3 leal glistening soft tissues averaging 0.2 cm. A S -1Dictated by LUIS JAIN ([facility])MICROSCOPIC DESCRIPTION:Slides reviewed.Electronically Signed byPathology Report verified by [facility]ron[facility] signed by KAMILAH Chapa out Date: 11/07/2017 16:51Performing Lab: [facility], [address] [place] [id number] [place] [address] [facility] Comment on above: Performed By: #### S PFR ####[facility] [place] [id number] [facility] Procedure Recordon 11-05-2017 AO ENDO Procedure Record [facility] Depart Summaryon 11-05-2017 Depart Summary Normal [facility] ([place]) History and Physicalon 11-05 History and Physical Normal [facility] ([place]) Outpatient Patient Summaryon 11-05-2017 Outpatient Patient Summary [facility] Office Visiton 05-17-2017 Dietary management education, guidance, and counseling (procedure) yes Invalid Interpretation Code [facility] Work Phone: Documentation of current medications (procedure) Done Invalid Interpretation Code [facility] Work Phone: Tobacco smoking status NHIS Never Invalid Interpretation Code [facility] Work Phone: Tobacco use CPHS Never smoker Invalid Interpretation Code [facility] Work Phone: Office Visiton 12-28-2016 Dietary management education, guidance, and counseling (procedure) yes Invalid Interpretation Code [facility] Work Phone: Documentation of current medications (procedure) Done Invalid Interpretation Code [facility] Work Phone: Tobacco smoking status NHIS Never Invalid Interpretation Code [facility] Work Phone: Tobacco use CPHS Never smoker Invalid Interpretation Code [facility] Work Phone: Lab Report: CBC W/Diff, Auto matedon 04-28-2016 Basophils/100 leukocytes 1.5 % High 0-1 [facility] Work Phone: Eosinophils/100 leukocytes 2.9 % Invalid Interpretation Code 0-5 [facility] Work Phone: Erythrocytes (RBC) 3.79 10*6/uL Low 4.2-5.4 [facility] Work Phone: Hematocrit (HCT) 36.7 % Low 37-47 [facility] Work Phone: Hemoglobin (HGB) 12.1 g/dL Invalid Interpretation Code 12.0-15.0 [facility] Work Phone: immature granulocytes, percentage of total cells, blood 0.000 % Invalid Interpretation Code 0.0-0.9 [facility] Work Phone: Lymphocytes 1.17 X10 3/UL Invalid Interpretation Code 0.83-4.51 [facility] Work Phone: Lymphocytes/100 leukocytes 34.0 % Invalid Interpretation Code 19-41 [facility] Work Phone: MCH 31.9 pg Invalid Interpretation Code 27.0-32.0 [facility] Work Phone: MCHC 33.0 G/GL Invalid Interpretation Code 32-36 [facility] Work Phone: MCV 96.8 fL Invalid Interpretation Code 81-99 [facility] Work Phone: Monocytes/100 leukocytes 13.4 % High 0-10 [facility] Work Phone: neutrophil count, blood 1.7 X10 3/UL Low 2.0-7.7 [facility] Work Phone: Neutrophils/100 leukocytes 48.2 % Invalid Interpretation Code 47-70 [facility] Work Phone: Platelets 231 10*3/mm3 Invalid Interpretation Code 150-450 [facility] Work Phone: PMV by Peng 10.5 fL Invalid Interpretation Code 6.2-12.0 [facility] Work Phone: RDW-CA 12.6 % Invalid Interpretation Code 11.6-14.6 [facility] Work Phone: red blood cell distribution width, size density 42.7 fL Invalid Interpretation Code 35.1-43.9 [facility] Work Phone: WBC (Leukocytes) 3.4 10*3/uL Low 4.4-11.0 [facility] Work Phone: Lab Report: Comprehensive [facility] 04-28-2016 Alanine aminotransferase (ALT) 39 U/L Invalid Interpretation Code 12-78 [facility] Work Phone: Albumin 3.8 g/dL Invalid Interpretation Code 3.4-5.0 [facility] Work Phone: Albumin/Globulin Ratio 1.2 {ratio} Invalid Interpretation Code 0.9-2.4 [facility] Work Phone: Alkaline phosphatase (ALP) 60 U/L Invalid Interpretation Code 50-136 [facility] Work Phone: Anion gap 7 mmol/L Invalid Interpretation Code 5-15 [facility] Work Phone: Aspartate aminotransferase (AST) 28 U/L Invalid Interpretation Code 15-37 [facility] Work Phone: Bilirubin (total) 0.30 mg/dL Invalid Interpretation Code 0.20-1.00 [facility] Work Phone: BUN/Creatinine Ratio 22.9 RATIO High 10-20 [facility] Work Phone: Calcium 9.3 mg/dL Invalid Interpretation Code 8.5-10.1 [facility] Work Phone: Chloride 106 mmol/L Invalid Interpretation Code 98-107 [facility] Work Phone: CO2 29.0 mmol/L Invalid Interpretation Code 21.0-32.0 [facility] Work Phone: Creatinine 0.83 mg/dL Invalid Interpretation Code 0.55-1.20 [facility] Work Phone: eGFR (non-black) 72 mL/min/{1.73_m2} Invalid Interpretation Code >60 [facility] Work Phone: eGFR (non-black) 87 mL/min/{1.73_m2} Invalid Interpretation Code >60 [facility] Work Phone: Globulin 3.1 g/dL Invalid Interpretation Code 2.3-3.5 [facility] Work Phone: Glucose 87 mg/dL Invalid Interpretation Code 70-110 [facility] Work Phone: Potassium 4.2 mmol/L Invalid Interpretation Code 3.5-5.1 [facility] Work Phone: Protein 6.9 g/dL Invalid Interpretation Code 6.4-8.2 [facility] Work Phone: Sodium 142 mmol/L Invalid Interpretation Code 136-145 [facility] Work Phone: Urea nitrogen 19 mg/dL High 7-18 [facility] Work Phone: Lab Report: Lipid Profileon 04-28-2016 Cholesterol 216 mg/dL High 200 [facility] Work Phone: HDL Cholesterol 50 mg/dL Invalid Interpretation Code [facility] Work Phone: LDL Cholesterol 123 mg/dL Invalid Interpretation Code 0-130 [facility] Work Phone: Triglyceride 213 mg/dL High [facility] Work Phone: very low density lipoproteins 43 mg/dL High 5-40 [facility] Work Phone: Lab Report: Microalb:Creat R atio,Random URon 04-28-2016 ACR (microalbumin/creati nine) ratio 12.6 MG/G CRE Invalid Interpretation Code <30 mg/g CRE [facility] Work Phone: Urine, creatinine 104.00 mg/dL Invalid Interpretation Code NO RANGE EST. [facility] Work Phone: Urine, microalbumin 1.31 mg/dL Invalid Interpretation Code Units converted. See lab report for original value. [facility] Work Phone: Lab Report: Vitamin D,25 Hyd roxyon 04-28-2016 vitamin D 25-hydroxy, serum 30.5 ng/mL Invalid Interpretation Code [facility] Work Phone: Vital Signs Date Time Vital Sign Value Performing Clinician Facility 11-17-2024 11:16-0500 Body mass index (BMI) [Ratio] 30.29 kg/m2 [place] Brown APRN.PHOTO FINISH PHOTOGRAPHER Work Phone: [facility] 11-17-2024 11:16-0500 Body weight 73.3 kg [place] Brown APRN.PHOTO FINISH PHOTOGRAPHER Work Phone: [facility] 11-17-2024 11:16-0500 Diastolic blood pressure 78 mm[Hg] [place] Brown APRN.PHOTO FINISH PHOTOGRAPHER Work Phone: [facility] 11-17-2024 11:16-0500 Heart rate 89 /min [place] Brown APRN.PHOTO FINISH PHOTOGRAPHER Work Phone: [facility] 11-17-2024 11:16-0500 SaO2% (BldA) [Mass fraction] 97 % nIdiana Brown APRN.PHOTO FINISH PHOTOGRAPHER Work Phone: [facility] 11-17-2024 11:16-0500 Systolic blood pressure 126 mm[Hg] [place] Stephanie BEHAVIORAL SCIENCE CHAIR.PHOTO FINISH PHOTOGRAPHER Work Phone: [facility] 09-17-2024 11:12-0500 Body mass index (BMI) [Ratio] 30.85 kg/m2 [place] Stephanie BEHAVIORAL SCIENCE CHAIR.PHOTO FINISH PHOTOGRAPHER Work Phone: [facility] 09-17-2024 11:12-0500 Body weight 74.66 kg [place] Stephanie BEHAVIORAL SCIENCE CHAIR.PHOTO FINISH PHOTOGRAPHER Work Phone: [facility] 09-17-2024 11:12-0500 Diastolic blood pressure 89 mm[Hg] [place] Stephanie BEHAVIORAL SCIENCE CHAIR.PHOTO FINISH PHOTOGRAPHER Work Phone: [facility] 09-17-2024 11:12-0500 Heart rate 86 /min [place] Stephanie BEHAVIORAL SCIENCE CHAIR.PHOTO FINISH PHOTOGRAPHER Work Phone: [facility] 09-17-2024 11:12-0500 Respiratory rate 16 /min [place] Stephanie BEHAVIORAL SCIENCE CHAIR.PHOTO FINISH PHOTOGRAPHER Work Phone: [facility] 09-17-2024 11:12-0500 Systolic blood pressure 159 mm[Hg] [place] Stephanie BEHAVIORAL SCIENCE CHAIR.PHOTO FINISH PHOTOGRAPHER Work Phone: [facility] 07-22-2024 08:46-0400 Body height 155.6 cm [place] Auguste MD Work Phone: [facility] 07-22-2024 08:46-0400 Body mass index (BMI) [Ratio] 30.74 kg/m2 [place] Auguste MD Work Phone: [facility] 07-22-2024 08:46-0400 Body weight 74.39 kg [place] Auguste MD Work Phone: [facility] 07-22-2024 08:46-0400 Diastolic blood pressure 70 mm[Hg] [place] Auguste MD Work Phone: [facility] 07-22-2024 08:46-0400 Systolic blood pressure 116 mm[Hg] [place] Auguste MD Work Phone: [facility] 06-16-2024 09:51-0400 Body mass index (BMI) [Ratio] 31.32 kg/m2 [place] Stephanie BEHAVIORAL SCIENCE CHAIR.PHOTO FINISH PHOTOGRAPHER Work Phone: [facility] 06-16-2024 09:51-0400 Body weight 75.2 kg [place] Stephanie BEHAVIORAL SCIENCE CHAIR.PHOTO FINISH PHOTOGRAPHER Work Phone: [facility] 06-16-2024 09:51-0400 Diastolic blood pressure 78 mm[Hg] [place] Stephanie BEHAVIORAL SCIENCE CHAIR.PHOTO FINISH PHOTOGRAPHER Work Phone: [facility] 06-16-2024 09:51-0400 Heart rate 80 /min [place] Stephanie BEHAVIORAL SCIENCE CHAIR.PHOTO FINISH PHOTOGRAPHER Work Phone: [facility] 06-16-2024 09:51-0400 SaO2% (BldA) [Mass fraction] 98 % [place] Stephanie BEHAVIORAL SCIENCE CHAIR.PHOTO FINISH PHOTOGRAPHER Work Phone: [facility] 06-16-2024 09:51-0400 Systolic blood pressure 119 mm[Hg] [place] Stephanie BEHAVIORAL SCIENCE CHAIR.PHOTO FINISH PHOTOGRAPHER Work Phone: [facility] 03-17-2024 09:17-0400 Body mass index (BMI) [Ratio] 31.1 kg/m2 [place] Stephanie BEHAVIORAL SCIENCE CHAIR.PHOTO FINISH PHOTOGRAPHER Work Phone: [facility] 03-17-2024 09:17-0400 Body weight 74.66 kg [place] Stephanie BEHAVIORAL SCIENCE CHAIR.PHOTO FINISH PHOTOGRAPHER Work Phone: [facility] 03-17-2024 09:17-0400 Diastolic blood pressure 81 mm[Hg] [place] Stephanie BEHAVIORAL SCIENCE CHAIR.PHOTO FINISH PHOTOGRAPHER Work Phone: [facility] 03-17-2024 09:17-0400 Heart rate 73 /min [place] Stephanie BEHAVIORAL SCIENCE CHAIR.PHOTO FINISH PHOTOGRAPHER Work Phone: [facility] 03-17-2024 09:17-0400 Respiratory rate 18 /min [place] Stephanie BEHAVIORAL SCIENCE CHAIR.PHOTO FINISH PHOTOGRAPHER Work Phone: [facility] 03-17-2024 09:17-0400 SaO2% (BldA) [Mass fraction] 95 % [place] Stephanie BEHAVIORAL SCIENCE CHAIR.PHOTO FINISH PHOTOGRAPHER Work Phone: [facility] 03-17-2024 09:17-0400 Systolic blood pressure 130 mm[Hg] [place] Stephanie BEHAVIORAL SCIENCE CHAIR.PHOTO FINISH PHOTOGRAPHER Work Phone: [facility] 03-08-2023 09:35-0400 Body weight 71.58 kg Mirna Dahlhausen BEHAVIORAL SCIENCE CHAIR.PHOTO FINISH PHOTOGRAPHER Work Phone: [facility] 03-08-2023 09:35-0400 Diastolic blood pressure 70 mm[Hg] Mirna Dahlhausen BEHAVIORAL SCIENCE CHAIR.PHOTO FINISH PHOTOGRAPHER Work Phone: [facility] 03-08-2023 09:35-0400 Heart rate 64 /min Mirna Dahlhausen BEHAVIORAL SCIENCE CHAIR.PHOTO FINISH PHOTOGRAPHER Work Phone: [facility] 03-08-2023 09:35-0400 Respiratory rate 16 /min Mirna Dahlhausen BEHAVIORAL SCIENCE CHAIR.PHOTO FINISH PHOTOGRAPHER Work Phone: [facility] 03-08-2023 09:35-0400 SaO2% (BldA) [Mass fraction] 95 % Mirna Dahlhausen BEHAVIORAL SCIENCE CHAIR.PHOTO FINISH PHOTOGRAPHER Work Phone: [facility] 03-08-2023 09:35-0400 Systolic blood pressure 118 mm[Hg] Mirna Dahlhausen BEHAVIORAL SCIENCE CHAIR.PHOTO FINISH PHOTOGRAPHER Work Phone: [facility] 10-04-2022 13:31-0500 Body height 154.9 cm [place] Auguste MD Work Phone: [facility] 10-04-2022 13:31-0500 Body weight 72.58 kg [place] Auguste MD Work Phone: [facility] 10-04-2022 13:31-0500 Diastolic blood pressure 68 mm[Hg] [place] Auguste MD Work Phone: [facility] 10-04-2022 13:31-0500 Systolic blood pressure 114 mm[Hg] [place] Auguste MD Work Phone: [facility] 08-24-2022 12:58-0400 Body temperature 98.29 [degF] Pavan James MD Work Phone: [facility] 08-24-2022 12:58-0400 Diastolic blood pressure 79 mm[Hg] Pavan James MD Work Phone: [facility] 08-24-2022 12:58-0400 Heart rate 86 /min Pavan James MD Work Phone: [facility] 08-24-2022 12:58-0400 Respiratory rate 17 /min Pavan James MD Work Phone: [facility] 08-24-2022 12:58-0400 Systolic blood pressure 138 mm[Hg] Pavan James MD Work Phone: [facility] 06-16-2022 15:05-0400 Body height 154.9 cm Mirna Dahlhausen BEHAVIORAL SCIENCE CHAIR.PHOTO FINISH PHOTOGRAPHER Work Phone: [facility] 06-16-2022 15:05-0400 Body weight 74.39 kg Mirna Dahlhausen BEHAVIORAL SCIENCE CHAIR.PHOTO FINISH PHOTOGRAPHER Work Phone: [facility] 06-16-2022 15:05-0400 Diastolic blood pressure 73 mm[Hg] Mirna Dahlhausen BEHAVIORAL SCIENCE CHAIR.PHOTO FINISH PHOTOGRAPHER Work Phone: [facility] 06-16-2022 15:05-0400 Heart rate 77 /min Mirna Dahlhausen BEHAVIORAL SCIENCE CHAIR.PHOTO FINISH PHOTOGRAPHER Work Phone: [facility] 06-16-2022 15:05-0400 Respiratory rate 16 /min Mirna Dahlhausen BEHAVIORAL SCIENCE CHAIR.PHOTO FINISH PHOTOGRAPHER Work Phone: [facility] 06-16-2022 15:05-0400 SaO2% (BldA) [Mass fraction] 98 % Mirna Dahlhausen BEHAVIORAL SCIENCE CHAIR.PHOTO FINISH PHOTOGRAPHER Work Phone: [facility] 06-16-2022 15:05-0400 Systolic blood pressure 113 mm[Hg] Mirna Dahlhausen PHOTO FINISH PHOTOGRAPHER Work Phone: [facility] 05-18-2022 16:03-0400 Body height 154.9 cm Babatunde Penaloza MD Work Phone: [facility] 05-18-2022 16:03-0400 Body weight 74.8 kg Babatunde Penaloza MD Work Phone: [facility] 05-18-2022 16:03-0400 Diastolic blood pressure 75 mm[Hg] Babatunde Penaloza MD Work Phone: [facility] 05-18-2022 16:03-0400 Heart rate 79 /min Babatunde Penaloza MD Work Phone: [facility] 05-18-2022 16:03-0400 Systolic blood pressure 139 mm[Hg] Babatunde Penaloza MD Work Phone: [facility] 08-17-2021 10:47-0400 Body temperature 98.49 [degF] Pavan James MD Work Phone: [facility] 08-17-2021 10:47-0400 Diastolic blood pressure 81 mm[Hg] Pavan James MD Work Phone: [facility] 08-17-2021 10:47-0400 Heart rate 90 /min Pavan James MD Work Phone: [facility] 08-17-2021 10:47-0400 Systolic blood pressure 152 mm[Hg] Pavan James MD Work Phone: [facility] 03-07-2016 13:16-0400 BMI (Body Mass Index) 28.71 kg/m2 [facility] Work Phone: 03-07-2016 13:16-0400 Body Temperature 98.2 [degF] [facility] Work Phone: 03-07-2016 13:16-0400 BP Diastolic 84 mm[Hg] [facility] Work Phone: 03-07-2016 13:16-0400 BP Systolic 130 mm[Hg] [facility] Work Phone: 03-07-2016 13:16-0400 BSA (Body Surface Area) 1.73 m2 [facility] Work Phone: 03-07-2016 13:16-0400 Pulse (Heart Rate) 85 /min [facility] enter [facility] Work Phone: 03-07-2016 13:16-0400 Respiratory Rate 14 /min [facility] ter [facility] Work Phone: 03-07-2016 13:16-0400 Weight 71.22 kg [facility] Work Phone: 01-07-2015 10:11-0400 Height 157.48 cm [facility] Work Phone: Encounters Encounter Date Encounter Type Care Provider Facility Start: 06-17-2025 End: 06-17-2025 Refill Indiana Brown APRN.CNP Work Phone: Neurology Comment on above: Refill Request Start: 06-16-2025 End: 06-17-2025 ambulatory Indiana Brown APRN.CNP Work Phone: Neurology Comment on above: Medication - Gabapen tin Start: 06-12-2025 End: 06-17-2025 Telephone encounter Indiana Brown APRN.CNP Work Phone: Neurology Comment on above: Medication Problem Start: 05-18-2025 End: 05-18-2025 Telephone encounter Indiana Brown APRN.CNP Work Phone: Neurology Start: 02-09-2025 End: 02-09-2025 Telephone encounter Enmanuel Phipps RN Work Phone: [facility] Home Delivery Comment on above: Insurance Authorizat ion; [employer] Start: 02-04-2025 End: 04-06-2025 Refill Babatunde Penaloza MD Work Phone: Neurology Comment on above: Refill Request Start: 02-03-2025 End: 02-03-2025 ambulatory [facility] Facility:[facility] Start: 02-03-2025 Encounter for gynecological examination (general) (routine) without abnormal findings [facility] Start: 02-03-2025 End: 02-03-2025 Patient encounter status Screen Wstr [facility] Start: 02-03-2025 End: 02-03-2025 Subsequent hospital visit by physician Screen Mammo [facility] Mammogram Comment on above: Encounter for routin e gynecologic examination in Medicare patient [Z01.419] Start: 01-17-2025 End: 01-19-2025 Refkatie Penaloza MD Work Phone: Neurology Comment on above: Refill Request Start: 11-17-2024 End: 11-17-2024 Patient encounter procedure Indiana Brown APRN.PHOTO FINISH PHOTOGRAPHER Work Phone: Neurology Comment on above: RLS (restless legs s yndrome) (Primary Dx); Insomnia, unspecified type Start: 11-17-2024 End: 11-17-2024 ambulatory [facility] Start: 09-17-2024 End: 09-24-2024 Telephone encounter Layla Cherry APRN.CNM Work Phone: OB/Gynecology Comment on above: Results UTI Start: 09-17-2024 End: 09-17-2024 [facility] Start: 09-17-2024 End: 09-17-2024 Patient encounter procedure Layla Cherry APRN.CNM Work Phone: OB/Gynecology Comment on above: Urinary urgency (Lucía baldo Dx); Urinary frequency RLS (restless legs s yndrome) (Primary Dx) Start: 08-21-2024 End: 08-21-2024 [facility] Facility:[facility] Start: 07-22-2024 End: 07-22-2024 ambulatory RUPALI CLINE Facility:[facility] Start: 07-22-2024 End: 07-22-2024 Patient encounter procedure Indiana Auguste MD Work Phone: OB/Gynecology Comment on above: Encounter for routin e gynecologic examination in Medicare patient (Primary Dx); Encounter for screening mammogram for breast cancer Start: 07-22-2024 End: 07-22-2024 Patient encounter status Indiana Auguste MD Work Phone: [facility] Start: 06-16-2024 End: 06-16-2024 Patient encounter procedure Indiana Brown APRN.PHOTO FINISH PHOTOGRAPHER Work Phone: Neurology Comment on above: RLS (restless legs s yndrome) (Primary Dx) Start: 06-09-2024 Refill Babatunde Penaloza MD Work Phone: Neurology Comment on above: Refill Request Start: 03-17-2024 Telephone encounter Indiana adrian APRN.PHOTO FINISH PHOTOGRAPHER Work Phone: Neurology Start: 03-17-2024 End: 03-17-2024 Patient encounter procedure Indiana Brown BEHAVIORAL SCIENCE CHAIR.PHOTO FINISH PHOTOGRAPHER Work Phone: Neurology Comment on above: RLS (restless legs s yndrome) (Primary Dx) Start: 02-01-2024 Documentation procedure Mammog vince Coordinator [facility] Start: 02-01-2024 Letter encounter Mammography Coordinator [facility] Department Start: 01-31-2024 End: 01-31-2024 Subsequent hospital visit by physician Bone Density [facility] Work Phone: Radiology Comment on above: At risk for decrease d bone density [Z91.89] Encounter for screen ing mammogram for malignant neoplasm of breast [Z12.31] Start: 12-18-2023 Telephone encounter Neurology Provid er Neurology Comment on above: Patient Update Start: 12-11-2023 Refill Babatunde Penaloza MD Work Phone: Neurology Comment on above: Refill Request Start: 08-15-2023 End: 08-15-2023 ambulatory [facility] Work Phone: Start: 08-15-2023 End: 08-15-2023 Patient encounter procedure [facility], Joseph Gonsalves [facility] Start: 06-22-2023 Refill Mirna acosta APRN.PHOTO FINISH PHOTOGRAPHER Work Phone: Neurology Comment on above: Refill Request Start: 06-01-2023 Refill Mirna acosta APRN.PHOTO FINISH PHOTOGRAPHER Work Phone: Neurology Comment on above: Refill Request Start: 05-31-2023 Refill Michele Verma Work Phone: Neurology Comment on above: Refill Request Start: 04-13-2023 Refill Mirna acosta APRN.PHOTO FINISH PHOTOGRAPHER Work Phone: Neurology Comment on above: Med Change Request Start: 04-09-2023 End: 04-09-2023 Patient encounter procedure Alessandro Nelson Work Phone: Podiatry Comment on above: Porokeratosis (Prima ry Dx) Start: 04-09-2023 End: 04-09-2023 Subsequent hospital visit by physician Xr [facility] Work Phone: Radiology Comment on above: Pain in right foot [ M79.671] Start: 04-03-2023 Telephone encounter Enmanuel wilkes RN Work Phone: [facility] Home Delivery Comment on above: Insurance Authorizat ion ([employer] 140MG/ML auto-injectors/) Start: 03-08-2023 End: 03-08-2023 Patient encounter procedure Mirna Baum APRN.PHOTO FINISH PHOTOGRAPHER Work Phone: Neurology Comment on above: RLS (restless legs s yndrome) (Primary Dx); Intractable episodic headache, unspecified headache type Start: 02-19-2023 Orders Only Alessandro scott Work Phone: Podiatry Comment on above: Pain in right foot ( Primary Dx) Refill Request Start: 01-24-2023 Refill Babatunde Penaloza MD Work Phone: Neurology Comment on above: Refill Request Start: 01-16-2023 Documentation procedure Mammog vince Coordinator [facility] Start: 01-16-2023 Letter encounter Mammography Coordinator [facility] Department Start: 01-15-2023 End: 01-15-2023 Patient encounter status Screen Wstr [facility] Start: 01-15-2023 End: 01-15-2023 Subsequent hospital visit by physician Screen Mammo [facility] Mammogram Comment on above: Encounter for gyneco logical examination (general) (routine) without abnormal findings [Z01.419] Start: 01-02-2023 Refill Mirna Dahlha usen BEHAVIORAL SCIENCE CHAIR.PHOTO FINISH PHOTOGRAPHER Work Phone: Neurology Comment on above: Refill Request Start: 12-17-2022 Refill Mirna Dahlha usen BEHAVIORAL SCIENCE CHAIR.PHOTO FINISH PHOTOGRAPHER Work Phone: Neurology Comment on above: Refill Request Start: 11-23-2022 End: 11-23-2022 ambulatory Babatunde Penaloza MD Work Phone: Neurology Comment on above: Migraine without aur a and without status migrainosus, not intractable (Primary Dx) Start: 11-23-2022 End: 11-23-2022 Telemedicine consultation with patient Babatunde Penaloza MD Work Phone: [facility] Start: 11-06-2022 Refill Mirna Dahlha usen BEHAVIORAL SCIENCE CHAIR.PHOTO FINISH PHOTOGRAPHER Work Phone: Neurology Comment on above: Refill Request Start: 11-04-2022 Refill Mirna Dahlha usen BEHAVIORAL SCIENCE CHAIR.PHOTO FINISH PHOTOGRAPHER Work Phone: Neurology Comment on above: Refill Request Start: 10-09-2022 Telephone encounter Indiana Auguste MD Work Phone: OB/Gynecology Comment on above: Results Start: 10-04-2022 End: 10-04-2022 Patient encounter procedure Indiana Auguste MD Work Phone: OB/Gynecology Comment on above: Encounter for gyneco logical examination (general) (routine) without abnormal findings (Primary Dx); Encounter for screening mammogram for breast cancer; Encounter for screening for osteoporosis; Vaginal irritation Start: 10-04-2022 End: 10-04-2022 Patient encounter status Indiana Auguste MD Work Phone: OB/Gynecology Start: 08-28-2022 Orders Only Pavan lee MD Work Phone: [facility] Start: 08-25-2022 End: 08-29-2022 ambulatory [facility] Start: 08-24-2022 End: 08-24-2022 Office outpatient visit 15 minutes Pavan James MD Work Phone: [facility] Comment on above: Cystocele, midline ( Primary Dx); Incomplete uterine prolapse Start: 08-21-2022 E-mail encounter fro m caregiver [facility] Provider PARI MASON Start: 08-21-2022 Patient encounter procedure [facility] Comment on above: October Appointment with Dr. Penaloza Start: 08-17-2022 End: 08-17-2022 ambulatory [facility] Work Phone: Start: 08-17-2022 End: 08-17-2022 Patient encounter procedure [facility], Joseph Gonsalves [facility] Start: 06-30-2022 Refill Mirna acosta BEHAVIORAL SCIENCE CHAIR.PHOTO FINISH PHOTOGRAPHER Work Phone: Neurology Comment on above: Refill Request Start: 06-30-2022 Refill Mirna acosta BEHAVIORAL SCIENCE CHAIR.PHOTO FINISH PHOTOGRAPHER Work Phone: Neurology Comment on above: Refill Request Start: 06-16-2022 End: 06-16-2022 Patient encounter procedure Mirna Baum BEHAVIORAL SCIENCE CHAIR.PHOTO FINISH PHOTOGRAPHER Work Phone: Neurology Comment on above: RLS (restless legs s yndrome) (Primary Dx); Intractable episodic headache, unspecified headache type Start: 05-18-2022 End: 05-18-2022 Patient encounter procedure Babatunde Penaloza MD Work Phone: Neurology Comment on above: Migraine without aur a and without status migrainosus, not intractable (Primary Dx) Start: 03-30-2022 ambulatory Mirna Gipson usenida BEHAVIORAL SCIENCE CHAIR.PHOTO FINISH PHOTOGRAPHER Work Phone: [facility] Start: 03-30-2022 Patient encounter procedure Mirna Baum BEHAVIORAL SCIENCE CHAIR.PHOTO FINISH PHOTOGRAPHER Work Phone: Neurology Comment on above: Appointment Start: 02-04-2022 ambulatory Mirna acosta BEHAVIORAL SCIENCE CHAIR.PHOTO FINISH PHOTOGRAPHER Work Phone: Neurology Comment on above: Lyrica Start: 08-17-2021 End: 08-17-2021 ambulatory PAVAN JAMES [facility] Start: 08-17-2021 End: 08-17-2021 Office outpatient visit 15 minutes Pavan James MD Work Phone: [facility] Comment on above: Cystocele, midline Start: 11-05-2017 End: 11-05-2017 Ambulatory [facility] Facility:B Procedures Date Procedure Procedure Detail Performing Clinician Start: 04-09-2023 Radex foot complete minimum 3 views Alessandro Nelson Work Phone: Start: 01-15-2023 DARBY SCREENING W MURTAZA Re matilde Auguste MD Work Phone: Start: 10-04-2022 Urnls dip stick/tabl et rgnt auto w/o microscopy Indiana Auguste MD Work Phone: Start: 03-07-2016 End: 04-28-2016 *CBC with Differential Rupali Ames O Work Phone: Start: 03-07-2016 End: 04-28-2016 *CMP Complete Metabolic Panel Rupali Cline DO Work Phone: Start: 03-07-2016 End: 04-28-2016 *Microalbumin, Creatine Ratio, rand urine Rupali Cline DO Work Phone: Start: 03-07-2016 End: 04-28-2016 25-Hydroxyvitamin D2+25-Hydroxyvitamin D3 [Mass/volume] in Serum or Plasma Rupali Cline DO Work Phone: Start: 03-07-2016 End: 04-28-2016 Lipid panel [AGGREGATE] Rupali Cline DO Work Phone: Plan of Treatment Date Care Activity Detail Author Start: 09-02-2025 End: 09-02-2025 Patient encounter procedure 09/02/2025 4:00 PM EST Office Visit Neurology [address] [place] [address] [place] [address] [place], [place] [id number] follow up on Migraines Neurology Comment on above: follow up on Migrain es Start: 07-06-2025 End: 07-06-2025 Patient encounter procedure 07/06/2025 11:30 AM EDT Office Visit Neurology [address] [place] [address] Indiana Brown, RICH.PHOTO FINISH PHOTOGRAPHER [address] [place] [address] Restless Leg syndrome Neurology Comment on above: Restless Leg syndrom e Start: 06-29-2025 Influenza vaccination Influenza Vacc ine (#1) [facility] Start: 06-04-2025 End: 06-04-2025 Patient encounter procedure 06/04/2025 11:30 AM EDT Office Visit Neurology [address] [place] [address] Indiana Brown, RICH.PHOTO FINISH PHOTOGRAPHER [address] [place] [address] Restless legs Neurology Comment on above: Restless legs Start: 05-06-2025 End: 05-06-2025 Patient encounter procedure 05/06/2025 11:30 AM EDT Office Visit Neurology [address] [place] [address] [place] [address] [place] [address] follow up Neurology Comment on above: follow up Start: 04-01-2025 End: 04-01-2025 Patient encounter procedure 04/01/2025 11:30 AM EDT Office Visit Neurology [address] [place] [address] [place] [address] [place] [address] follow up Neurology Comment on above: follow up Start: 02-03-2025 End: 02-03-2025 Patient encounter procedure 02/03/2025 11:30 AM EDT Appointment Mammogram [address] [place] [address] Encounter for routine gynecologic examination in Medicare patient [Z01.419]; Encounter for screening mammogram for breast cancer [Z12.31] Mammogram Comment on above: Encounter for routin e gynecologic examination in Medicare patient [Z01.419]; Encounter for screening mammogram for breast cancer [Z12.31] Start: 11-17-2024 End: 11-17-2024 Patient encounter procedure 11/17/2024 11:30 AM EST Office Visit Neurology [address] [place] [address] Indiana Brown, BEHAVIORAL SCIENCE CHAIR.PHOTO FINISH PHOTOGRAPHER [address] [place] [address] follow up for medications changes 06/16/24 Neurology Comment on above: follow up for medica tions changes 06/16/24 Start: 10-29-2024 Advance Directive Discussion Advance Directive Discussion [facility] Start: 10-29-2024 Medicare Advantage Annual Wellness Visit Medicare Advantage Annual Wellness Visit [facility] Start: 10-29-2024 Shingrix Vaccine (2 of 2) Shingrix Vaccine (2 of 2) [facility] Start: 09-17-2024 End: 09-17-2024 Patient encounter procedure 09/17/2024 11:00 AM EST Office Visit Neurology [address] [place] [address] Indiana Brown, BEHAVIORAL SCIENCE CHAIR.PHOTO FINISH PHOTOGRAPHER [address] [place] [address] follow up for medications changes 06/16/24 Neurology Comment on above: follow up for medica tions changes 06/16/24 Start: 07-22-2024 End: 07-22-2024 Patient encounter procedure 07/22/2024 8:40 AM EDT Office Visit OB/Gynecology [address] [place] [address] Indiana Auguste MD [address] [place] [address] Annual OB/Gynecology Comment on above: Annual Start: 06-29-2024 Covid-19 Vaccine ( season) Covid-19 Vaccine () [facility] Start: 06-29-2024 Influenza vaccination [facility] Start: 06-16-2024 End: 06-16-2024 Patient encounter procedure 06/16/2024 10:00 AM EDT Office Visit Neurology [address] [place] [address] Indiana Brown, RICH.PHOTO FINISH PHOTOGRAPHER [address] [place] [address] 8 week follow up medication change. Neurology Comment on above: 8 week follow up med ication change. Start: 10-29-2023 Advance Directive Discussion Advance Directive Discussion [facility] Start: 10-29-2023 [facility] Start: 06-29-2023 Covid-19 Vaccine ( season) Covid-19 Vaccine () [facility] Start: 06-29-2023 Influenza vaccination [facility] Start: 10-29-2022 ADVANCE DIRECTIVE DISCUSSION ADVANCE DIRECTIVE DISCUSSION [facility] Start: 10-29-2022 [facility] Start: 08-24-2022 End: 08-24-2022 Patient encounter procedure 08/24/2022 Office Visit Urogynecology Pavan James MD [address] [facility] [address] [place] [address] [facility] Start: 06-29-2022 Influenza vaccination INFLUENZA (#1) [facility] Start: 12-27-2021 COVID-19 VACCINE (4 - Booster for Moderna series) COVID-19 VACCINE (4 - Booster for Moderna series) [facility] Start: 10-29-2021 ADVANCE DIRECTIVE DISCUSSION ADVANCE DIRECTIVE DISCUSSION [facility] Start: 10-29-2021 DEPRESSION ASSESSMENT DEPRESSION ASS ESSMENT [facility] Start: 10-24-2021 COVID-19 VACCINE (4 - Booster for Moderna series) COVID-19 VACCINE (4 - Booster for Moderna series) [facility] Start: 10-24-2021 COVID-19 VACCINE (4 - Moderna series) COVID-19 VACCINE (4 - Moderna series) [facility] Start: 06-29-2021 Influenza vaccination Sequenti al Influenza Vaccine (#1) [facility] Start: 2017 RSV Vaccine (1 - 1-d ose 75+ series) RSV Vaccine (1 - 1-dose 75+ series) [facility] Start: 05-17-2017 End: 05-17-2017 Appointment Appointment [facility] Work Phone: Start: 12-28-2016 End: 12-28-2016 X-ray exam of shoulder X-Ray, Shoulder [facility] Lex ramesh [facility] Work Phone: Start: 03-07-2016 End: 04-28-2016 *CBC with Differential *CBC with Differential [facility] Sakshi beckford [facility] Work Phone: Start: 03-07-2016 End: 04-28-2016 *CMP Complete Metabolic Panel *CMP Complete Metabolic Panel [facility] Work Phone: Start: 03-07-2016 End: 04-28-2016 *Microalbumin, Creatine Ratio, rand urine *Microalbumin, Creatine Ratio, rand urine [facility] Work Phone: Start: 03-07-2016 End: 04-28-2016 25-Hydroxyvitamin D2+25-Hydroxyvitamin D3 [Mass/volume] in Serum or Plasma *Vitamin D (Calciferol) [facility] Work Phone: Start: 03-07-2016 End: 04-28-2016 Lipid panel [AGGREGATE] *Lipid Profile [facility] Work Phone: Start: 11-16-2015 End: 11-16-2015 X-ray exam of hip X-Ray, Hip Unilateral [facility] Work Phone: Start: 11-16-2015 End: 11-16-2015 X-ray exam of pelvis X-Ray, Pelvis [facility] Work Phone: Start: 10-01-2008 DIABETES SCREEN DIABETES SCREEN [facility] Start: 10-01-2008 Diabetes Screening Diabetes Screenin g [facility] Start: 2007 BONE DENSITY BONE DENSITY [facility] Start: 2007 Bone Density Screening Bone Density Screening [facility] Start: 2007 Fall risk assessment Falls Risk Asse ssment [facility] Start: 2007 Pneumococcal Vaccine : 65+ (1 - PCV) Pneumococcal Vaccine: 65+ (1 - PCV) [facility] Start: 2007 Pneumococcal Vaccine : 65+ (1 of 1 - PCV) Pneumococcal Vaccine: 65+ (1 of 1 - PCV) [facility] Start: 2007 Pneumococcal Vaccine : Age 65+ (1 - PCV) Pneumococcal Vaccine: Age 65+ (1 - PCV) [facility] Start: 2007 Pneumococcal Vaccine : Age 65+ (1 of 1 - PPSV23) Pneumococcal Vaccine: Age 65+ (1 of 1 - PPSV23) [facility] Start: 2007 PNEUMOCOCCAL: 65+ (1 - PCV) PNEUMOCOCCAL: 65+ (1 - PCV) [facility] Start: 2007 PNEUMOVAX AGE 65 AND OVER WITH 5YR LOOKBACK (#1) PNEUMOVAX AGE 65 AND OVER WITH 5YR LOOKBACK (#1) [facility] Start: 2007 Screening for osteoporosis Bone Density Screening [facility] Start: 2002 RSV Vaccine (1 - 1-d ose 60+ series) RSV Vaccine (1 - 1-dose 60+ series) [facility] Start: 1992 Administration of he rpes zoster vaccine Zoster Vaccines (1 of 2) [facility] Start: 1992 Pneumococcal Vaccine : 50+ (1 of 1 - PCV) Pneumococcal Vaccine: 50+ (1 of 1 - PCV) [facility] Start: 1992 SHINGRIX VACCINE (1 of 2) SHINGRIX VACCINE (1 of 2) [facility] Start: 1982 Screening for malign ant neoplasm of breast Mammogram [facility] Start: 1961 Urine microalbumin profile [facility] Start: 1960 Anxiety Screening Anxiety Screening [facility] Start: 1960 Depression Screening Depression Scre ening [facility] Start: 1960 Hepatitis C screening Hepatitis C Sc reening [facility] Start: 1954 Depression screening using PHQ-9 (Patient Health Questionnaire 9) score [facility] Start: 1945 History and physical examination, annual for health maintenance Wellness Visit [facility] Start: 1942 Screening for osteoporosis Dexa Scan [facility] Start: 1942 Tetanus vaccination Tetanus: Every 1 0yrs [facility] Bacteria identified in Urine by Culture URINE CULTURE Microbiology Routine Vaginal irritation 10/04/2022 2:57 PM EST [facility] Work Phone: Bacteria identified in Urine by Culture URINE CULTURE Microbiology Routine Urinary urgency Urinary frequency 09/17/2024 1:10 PM EST [facility] Work Phone: DBT Breast - bilater al screening DARBY SCREENING W MURTAZA Radiology Routine Encounter for screening mammogram for malignant neoplasm of breast 01/31/2024 8:07 AM EDT [facility] Work Phone: End: 08-21-2025 DBT Breast - bilateral screening DARBY SCREENING W MURTAZA Radiology Routine Encounter for routine gynecologic examination in Medicare patient Encounter for screening mammogram for breast cancer 1 Occurrences starting 07/22/2024 until 08/21/2025 [facility] Work Phone: Comment on above: 1 Occurrences starti ng 07/22/2024 until 08/21/2025 DBT Breast - bilater al screening DARBY SCREENING W MURTAZA Radiology Routine Encounter for routine gynecologic examination in Medicare patient Encounter for screening mammogram for breast cancer 02/03/2025 11:48 AM EDT [facility] Work Phone: DXA Skeletal system.axial Views for bone density DXA-AXIAL SKELETON Radiology Routine At risk for decreased bone density 01/31/2024 8:33 AM EDT [facility] [facility] Work Phone: End: 11-03-2023 DXA-AXIAL SKELETON DXA-AXIAL SKELETON Radiology Routine Encounter for screening for osteoporosis 1 Occurrences starting 10/04/2022 until 11/03/2023 [facility] Work Phone: Comment on above: 1 Occurrences starti ng 10/04/2022 until 11/03/2023 End: 11-03-2023 DARBY SCREENING W MURTAZA DARBY SCREENING W MURTAZA Radiology Routine Encounter for gynecological examination (general) (routine) without abnormal findings Encounter for screening mammogram for breast cancer 1 Occurrences starting 10/04/2022 until 11/03/2023 [facility] Work Phone: Comment on above: 1 Occurrences starti ng 10/04/2022 until 11/03/2023 End: 03-20-2024 XR FOOT GENERAL 3V AP/LAT/OBL RIGHT XR FOOT GENERAL 3V AP/LAT/OBL RIGHT Radiology Routine Pain in right foot 1 Occurrences starting 02/19/2023 until 03/20/2024 [facility] Work Phone: Comment on above: 1 Occurrences starti ng 02/19/2023 until 03/20/2024 [facility] Immunizations Immunization Date Immunization Notes Care Provider Fa [facility] 08-26-2024 influenza virus vaccine, unspecified formulation Indiana Brown BEHAVIORAL SCIENCE CHAIR.PHOTO FINISH PHOTOGRAPHER Work Phone: [facility] 08-18-2022 influenza virus vaccine, unspecified formulation [employer] Work Phone: [facility] 12-23-2020 Covid (Moderna) [facility] 11-25-2020 Covid (Moderna) [facility] 08-11-2020 influenza, high dose seasonal, preservative-free Mirnabenji Marieebrandan WHITEPHOTO FINISH PHOTOGRAPHER Work Phone: [facility] Payers Date Payer Category Payer Self-pay [id number] 2021 Medicare AETNA MEDICARE A ETNA MEDICARE PPO [id number] 2021-Present [phone] [address] [place] [address] PPO [id number] 2021 Medicare (Managed Care[place] [id number] 2019 Medicare [place] MANAGED [place] AETNA MEDICARE PLAN (PPO) [id number] 2019-Present [phone] [address] [place] [address] [id number] 2019 Medicare [id number] 2017 Medicare [id number] 2014 Private Health Insurance [facility] [facility] [place] [id number] 1940 [facility] [id number] 1940 Unknown [id number] Unknown [id number] Social History Date Type Detail Facility Start: 08-17-2020 End: 06-16-2022 Tobacco smoking status NHIS Never smoked tobacco [facility] Start: 08-17-2020 End: 06-16-2022 Tobacco use and exposure Smokeless tobacco non-user [facility] Start: 08-17-2020 End: 11-17-2024 Alcohol intake Current drinker of alcohol (finding) [facility] Start: 08-17-2020 History SDOH Alcohol Frequency 2 [facility] Start: 08-17-2020 History SDOH Alcohol Std Drinks 1 [facility] Start: 1940 Sex Assigned At Not on file O [facility] Start: 01-09-2022 End: 06-16-2022 Exposure to SARS-CoV-2 (event) Not sure [facility] Start: 02-13-2012 History SDOH Alcohol Comment rarely 1 per month [facility] Start: 08-14-2022 End: 08-24-2022 Exposure to SARS-CoV-2 (event) Yes [facility] Start: 09-05-2021 Tobacco smoking stat us NHIS Unknown if ever smoked [facility] Start: 1940 Sex Assigned At Female [facility] Start: 10-05-2020 End: 04-09-2023 History of Social function [facility] Start: 10-05-2020 End: 04-09-2023 Tobacco use panel [facility] Start: 09-29-2012 Adult Depression Screening Assessment 0 [facility] Clinical Notes 08-16-2021 to 06-17-2025 Telephone Encounter - Indiana Brown APRN.PHOTO FINISH PHOTOGRAPHER - 06/17/2025 12:00 PM EDTTelephone Encounter - Indiana Brown APRN.CNP - 06/17/2025 12:00 PM Deann Cole Mammo Tech - 02/03/2025 11:30 AM EDT Note Date & Type Note Facility 06-17-2025 Telephone encounter Note Noted thanks Indiana Brown APRN.BRITTNEY [facility] 06-17-2025 Miscellaneous Notes Noted thanks Indiana Brown APRN.CNP Patient notified of update, verbalizes understanding of instructions. Pt stated she will lower her Gabapentin to one a day. Jacque Taylor LPN Yes, that is fine to try the lower dose. Gabapentin can cause grogginess or fogginess. I see she has follow up 07/06/25. Indiana Brown APRN.BRITTNEY Patient calls to check on status of request below. Notified patient request is pending review and once we have a message to give her from provider we will contact her back. Patient verbalized understanding. Evelyn Graham RN Last OV 11/17/24. Jacque Taylor LPN Pt reports she has been taking gabapentin for about a year. Reports she takes 300 mg 2 tabs each evening for restless legs. Reports in the last several weeks she has been feeling foggy, and not with it at times. She and her looked up the side effects of gabapentin and her symptoms match those. Pt aware Torey Brown is gone for the day and will return on Sunday. Pt wants provider to know she is going to take one tab at hs tonight and for the weekend will try taking 1 tab at 3 pm and 1 tab in the evening. Pt asking Torey Brown to advise. documented in this encounter [facility] 06-17-2025 Telephone encounter Note TC to Pt. She stated to hold off on ordering any Gabapentin till her appt. on 07/06/25. Jacque Taylor LPN [facility] 06-17-2025 Miscellaneous Notes TC to Pt. She stated to hold off on ordering any Gabapentin till her appt. on 07/06/25. Jacque Taylor LPN documented in this encounter [facility] 06-17-2025 Telephone encounter Note Answered I another phone encounter. Jacque Taylor LPN [facility] 06-17-2025 Miscellaneous Notes Answered I another phone encounter. Jacque Taylor LPN documented in this encounter [facility] 06-17-2025 Telephone encounter Note Patient notified of update, verbalizes understanding of instructions. Pt stated she will lower her Gabapentin to one a day. Jacque Taylor LPN [facility] 06-17-2025 Telephone encounter Note Yes, that is fine to try the lower dose. Gabapentin can cause grogginess or fogginess. I see she has follow up 07/06/25. Indiana Brown APRN.PHOTO FINISH PHOTOGRAPHER [facility] 06-16-2025 Telephone encounter Note Patient calls to check on status of request below. Notified patient request is pending review and once we have a message to give her from provider we will contact her back. Patient verbalized understanding. Evelyn Graham RN [facility] 06-15-2025 Telephone encounter Note Last OV 11/17/24. Jacque Taylor LPN [facility] 06-12-2025 Telephone encounter Note Pt reports she has been taking gabapentin for about a year. Reports she takes 300 mg 2 tabs each evening for restless legs. Reports in the last several weeks she has been feeling foggy, and not with it at times. She and her looked up the side effects of gabapentin and her symptoms match those. Pt aware Torey Brown is gone for the day and will return on Sunday. Pt wants provider to know she is going to take one tab at hs tonight and for the weekend will try taking 1 tab at 3 pm and 1 tab in the evening. Pt asking Torey Brown to advise. [facility] 05-18-2025 Telephone encounter Note Appeal letter faxed to [facility] Health Appeals Team. Jacque Taylor LPN [facility] 05-18-2025 Miscellaneous Notes Appeal letter faxed to [facility] Health Appeals Team. Jacque Taylor LPN Please print appeal letter so I can sign for Nidra by Noctrialeta Brown APRN.PHOTO FINISH PHOTOGRAPHER documented in this encounter [facility] 05-18-2025 Telephone encounter Note Please print appeal letter so I can sign for Nidra by Noctrialeta Brown APRN.PHOTO FINISH PHOTOGRAPHER [facility] 02-09-2025 Telephone encounter Note Ambulatory Pharmacy Prior Authorization Note Provider Intervention Required?: No - Pharmacy completed on your behalf. Was the PA documented within the ePA workqueue?: Yes View the status history of the prior authorization in the Auth Tab within Chart Review Additional Information: For questions relating to this submission, please contact [facility] at [phone] [facility] Work Phone: 02-09-2025 Miscellaneous Notes Ambulatory Pharmacy Prior Authorization Note Provider Intervention Required?: No - Pharmacy completed on your behalf. Was the PA documented within the ePA workqueue?: Yes View the status history of the prior authorization in the Auth Tab within Chart Review Additional Information: For questions relating to this submission, please contact [facility] at [phone] documented in this encounter [facility] 02-04-2025 Telephone encounter Note Physician: Tremaine Call from patient requesting refill. Please E-Scribe Last office visit 11/21/24 with Tremaine in person Next office visit 04/01/25 with Tremaine in person PA NEEDED Requested Prescriptions Pending Prescriptions Disp Refills erenumab-aooe (AIMOVIG AUTOINJECTOR) 140 mg/mL auto-injector 3 mL 3 Sig: Inject 1 mL subcutaneously once every month. Do not shake. Pharmacy Name: [facility] ISAI La Omar [facility] 02-04-2025 Miscellaneous Notes Physician: Tremaine Call from patient requesting refill. Please E-Scribe Last office visit 11/21/24 with Tremaine in person Next office visit 04/01/25 with Tremaine in person PA NEEDED Requested Prescriptions Pending Prescriptions Disp Refills erenumab-aooe (AIMOVIG AUTOINJECTOR) 140 mg/mL auto-injector 3 mL 3 Sig: Inject 1 mL subcutaneously once every month. Do not shake. Pharmacy Name: [facility] Bessie Omar documented in this encounter [facility] 02-03-2025 History of Presen t illness Narrative Radiology Service Progress Note PATIENT NAME: Baldo Grant DATE OF SERVICE: February 03, 2025 TIME: 11:42 AM PATIENT IDENTITY VERIFICATION COMPLETED USING TWO (2) IDENTIFIERS: Name and Date of confirmed by patient verbally. FALL SCREENING: Has the patient had 2 falls in the last year or 1 fall with injury or currently using an Ambulatory Assistive Device (Walker, Cane, Wheelchair, Crutches, etc.)? No PATIENT GENDER DATA: Assigned female at . status: : No status: NO. PATIENT RELEVANT IMPLANT DATA REVIEWED: Not Applicable PATIENT PRESENTS WITH AN IMPLANTABLE OR ATTACHED AUTOMOTIVE TITLE CLERK: No RADIOLOGY DEPARTMENT: Mammography PERIPHERAL IV DATA: Not applicable SIGNED BY: Ned Cruz February 03, 2025 11:42 AM documented in this encounter [facility] 02-03-2025 Note HNO ID: [id number] Author: DEANN BHAT Mammo Tech Service: ? Author Type: Technologist Type: Progress Notes Filed: 02/03/2025 11:43 Note Text: Radiology Service Progress Note PATIENT NAME: Baldo Grant DATE OF SERVICE: February 03, 2025 TIME: 11:42 AM PATIENT IDENTITY VERIFICATION COMPLETED USING TWO (2) IDENTIFIERS: Name and Date of confirmed by patient verbally. FALL SCREENING: Has the patient had 2 falls in the last year or 1 fall with injury or currently using an Ambulatory Assistive Device (Walker, Cane, Wheelchair, Crutches, etc.)? No PATIENT GENDER DATA: Assigned female at . status: : No status: NO. PATIENT RELEVANT IMPLANT DATA REVIEWED: Not Applicable PATIENT PRESENTS WITH AN IMPLANTABLE OR ATTACHED AUTOMOTIVE TITLE CLERK: No RADIOLOGY DEPARTMENT: Mammography PERIPHERAL IV DATA: Not applicable SIGNED BY: Ned Cruz February 03, 2025 11:42 AM [facility] 01-19-2025 Telephone encounter Note Physician: Tremaine Call from pharmacy requesting refill. Please E-Scribe Last OV: 11/21/2023 with Tremaine Future OV: 04/01/2025 with Tremaine Requested Prescriptions Pending Prescriptions Disp Refills AIMOVIG AUTOINJECTOR 140 mg/mL auto-injector [Pharmacy Med Name: AIMOVIG 140 MG/ML AUTOINJECTOR] 3 Sig: INJECT 1 ML SUBCUTANEOUSLY ONCE EVERY MONTH. DO NOT SHAKE. Pharmacy Name: [facility] 01-19-2025 Miscellaneous Notes Physician: Tremaine Call from pharmacy requesting refill. Please E-Scribe Last OV: 11/21/2023 with Tremaine Future OV: 04/01/2025 with Tremaine Requested Prescriptions Pending Prescriptions Disp Refills AIMOVIG AUTOINJECTOR 140 mg/mL auto-injector [Pharmacy Med Name: AIMOVIG 140 MG/ML AUTOINJECTOR] 3 Sig: INJECT 1 ML SUBCUTANEOUSLY ONCE EVERY MONTH. DO NOT SHAKE. Pharmacy Name: [facility] documented in this encounter [facility] 11-17-2024 History of Presen t illness Narrative Images from the original note were not included. [facility] Follow up/ Established patient visit Date of last visit : 09/17/2024 The following Impression/Plan was copied and pasted from the patient's last [facility] visit on 09/17/24: IMPRESSION: Rls (restless legs syndrome) (primary encounter diagnosis) Baldo Grant is a delightful 84 year old female with RLS. She successfully tapered off pramipexole. Her evening RLS has improved since then. She is having increased awakening in the night now--has to get up and use ice pack then for RLS. notes apneas. No change in her years-long snoring. She swore she would never have another in-lab study. She would consider a home sleep study--however she wouldn't use CPAP and she isn't a candidate for oral appliance therapy. PLAN: Check on status of Nidra appeal Rx gabapentin -- continue 600 mg late afternoon or early evening, increase from 300 mg to 600 mg in early evening or HS. We'll see how that helps with her RLS and waking in the night. Hold off on HSAT for now, but we can certainly order it any time for snoring and witnessed apneas Indiana Brown APRN.PHOTO FINISH PHOTOGRAPHER Here for follow up for RLS New issue--having difficulty falling asleep and waking earlier than desired. Maybe started 6 mos ago, but increased since her last appointment. Goes to bed at 10-11 PM. Taking 1-1.5 hrs to fall asleep, might go in and out of sleep during that time. Then wakes around 230-330 AM, goes downstairs, up for about 30-60 min, then goes back to bed, then gets deeper sleep until 8-830 AM. There has been some stress--water leak in their home, ceiling caved in, having repairs now. We increased gabapentin dose at bedtime, plan was 600 mg in late afternoon and 600 mg in evening. But since she wasn't having evening sxs she cut back to just 600 mg at around 8 PM. No RLS sxs in the evening, not having to get up from couch and walk around. This improved after discontinuing pramipexole. When she wakes in the night she does have some RLS in her lower legs--moves them, sometimes walks which settles them down. No naps. Nidra device for RLS was denied, it is now in process of being appealed She snores and has witnessed apneas but doesn't want PAP therapy so we decided against updating a sleep study at her last appointment PATIENT-ENTERED QUESTIONNAIRE SLEEP SCORES 11/16/2024 Sleep Questions Reason for visit: Restless Legs Syndrome Accidents or near accidents due to drowsy drivin 06/09/2024 09/16/2024 11/16/2024 [place] Sleepiness Scale Score 1 (No clinically significant daytime sleepiness) 2 (No clinically significant daytime sleepiness) 2 (No clinically significant daytime sleepiness) 06/09/2024 09/16/2024 11/16/2024 PROMIS CAT Sleep Disturbance PROMIS Sleep Disturbance T-Score 49 (within normal limits) 52 (within normal limits) 54 (within normal limits) PROMIS Sleep Disturbance Percentile 54 42 34 06/09/2024 09/16/2024 11/16/2024 Restless Leg Syndrome Score Incomplete 24 (Severe symptoms) 12 (Moderate symptoms) 06/09/2024 09/16/2024 11/16/2024 PHQ-9 Score 2 1 3 03/13/2024 06/09/2024 09/16/2024 PROMIS Global Health - (T-Scores - the mean of general population = 50. Five points is a clinically meaningful difference.) Physical T-Score 57.7 50.8 57.7 Mental T-Score 62.5 50.8 53.3 ALLERGIES Allergen Reactions Atorvastatin Other: See Comments Pravastatin Other: See Comments CURRENT MEDICATIONS: gabapentin (NEURONTIN) 300 mg capsule Take 1 to 2 capsules at 3PM and 1 to 2 capsules at 7PM. biotin 5 mg tab Take 3 mg by mouth. erenumab-aooe (AIMOVIG AUTOINJECTOR) 140 mg/mL auto-injector Inject 1 mL subcutaneously once every month. Do not shake. SUMAtriptan (IMITREX) 100 mg tablet Take 50 mg to 100 mg at migraine onset. May repeat once in 2 hours if needed. lisinopril (ZESTRIL, PRINIVIL) 5 mg tablet Take 5 mg by mouth once daily. calcium carbonate/vitamin d3(CALCIUM 600 + D(3) 600 MG (1,500)-200 UNIT TAB) Take one(1) tablet twice daily. ZETIA 10 MG TAB Take by mouth. THERAPEUTIC MULTIVITAMIN ORAL TAB Take one(1) tablet daily. OTC NUTRITIONAL SUPPLEMENT calcium 600 mg qd Latest Reference Range & Units 03/17/24 10:12 Ferritin 14.7 - 205.1 ng/mL 128.0 Iron 41 - 186 ug/dL 135 TIBC 232 - 386 ug/dL 253 Transferrin Saturation 15.0 - 57.0 % 53.4 PHYSICAL EXAMINATION: Vital Signs: BP 126/78 (BP Site: Right Arm, BP Position: Sitting) Pulse 89 Wt 73.3 kg (161 lb 9.6 oz) LMP 10/29/1996 SpO2 97% BMI 30.29 kg/m PHYSICAL EXAM: General appearance: pleasant, NAD Mental status: alert and oriented, able to provide own history Constitutional: WNL Skin: No visible rashes on exposed skin Neuro: No focal deficits observed, no tremors IMPRESSION: Rls (restless legs syndrome) (primary encounter diagnosis) Insomnia, unspecified type Baldo Grant is an 84 year old female with RLS, insomnia RLS much improved since discontinuing pramipexole. She has decreased gabapentin dose--previously on 600 mg in late afternoon and 300 mg in evening, now taking 600 mg at around 8 PM. She has no RLS sxs in the evening. When she awakes around 3 AM she might have RLS, resolves with moving legs or sometimes walking, not overly bothersome to her at this time. She is having increased sleep onset insomnia, not interested in changing gabapentin or adding a med. Thinks might be due to increased stress. PLAN: Continue gabapentin 600 mg every evening, ok to try 300 mg early evening and 300 mg at HS to see if that helps with RLS in the night. Notify me when need refills. Discussed insomnia. Get OOB when can't sleep, go somewhere else, do something boring, back to bed only when drowsy. Follow up 6 mos, sooner if sxs worsen Indiana Brown APRN.PHOTO FINISH PHOTOGRAPHER documented in this encounter [facility] 11-17-2024 Note HNO ID: [id number] Author: INDIANA BROWN APRN.BRITTNEY Service: ? Author Type: Nurse Practitioner Type: Progress Notes Filed: 11/17/2024 12:15 Note Text: [facility] Follow up/ Established patient visit Date of last visit : 09/17/2024 The following Impression/Plan was copied and pasted from the patient's last [facility] visit on 09/17/24: IMPRESSION: Rls (restless legs syndrome) (primary encounter diagnosis) Baldo Grant is a delightful 84 year old female with RLS. She successfully tapered off pramipexole. Her evening RLS has improved since then. She is having increased awakening in the night now--has to get up and use ice pack then for RLS. notes apneas. No change in her years-long snoring. She swore she would never have another in-lab study. She would consider a home sleep study--however she wouldn't use CPAP and she isn't a candidate for oral appliance therapy. PLAN: Check on status of Nidra appeal Rx gabapentin -- continue 600 mg late afternoon or early evening, increase from 300 mg to 600 mg in early evening or HS. We'll see how that helps with her RLS and waking in the night. Hold off on HSAT for now, but we can certainly order it any time for snoring and witnessed apneas Indiana Brown APRN.PHOTO FINISH PHOTOGRAPHER Here for follow up for RLS New issue--having difficulty falling asleep and waking earlier than desired. Maybe started 6 mos ago, but increased since her last appointment. Goes to bed at 10-11 PM. Taking 1-1.5 hrs to fall asleep, might go in and out of sleep during that time. Then wakes around 230-330 AM, goes downstairs, up for about 30-60 min, then goes back to bed, then gets deeper sleep until 8-830 AM. There has been some stress--water leak in their home, ceiling caved in, having repairs now. We increased gabapentin dose at bedtime, plan was 600 mg in late afternoon and 600 mg in evening. But since she wasn't having evening sxs she cut back to just 600 mg at around 8 PM. No RLS sxs in the evening, not having to get up from couch and walk around. This improved after discontinuing pramipexole. When she wakes in the night she does have some RLS in her lower legs--moves them, sometimes walks which settles them down. No naps. Nidra device for RLS was denied, it is now in process of being appealed She snores and has witnessed apneas but doesn't want PAP therapy so we decided against updating a sleep study at her last appointment PATIENT-ENTERED QUESTIONNAIRE SLEEP SCORES 11/16/2024 Sleep Questions Reason for visit: Restless Legs Syndrome Accidents or near accidents due to drowsy drivin 06/09/2024 09/16/2024 11/16/2024 [place] Sleepiness Scale Score 1 (No clinically significant daytime sleepiness) 2 (No clinically significant daytime sleepiness) 2 (No clinically significant daytime sleepiness) 06/09/2024 09/16/2024 11/16/2024 PROMIS CAT Sleep Disturbance PROMIS Sleep Disturbance T-Score 49 (within normal limits) 52 (within normal limits) 54 (within normal limits) PROMIS Sleep Disturbance Percentile 54 42 34 06/09/2024 09/16/2024 11/16/2024 Restless Leg Syndrome Score Incomplete 24 (Severe symptoms) 12 (Moderate symptoms) 06/09/2024 09/16/2024 11/16/2024 PHQ-9 Score 2 1 3 03/13/2024 06/09/2024 09/16/2024 PROMIS Global Health - (T-Scores - the mean of general population = 50. Five points is a clinically meaningful difference.) Physical T-Score 57.7 50.8 57.7 Mental T-Score 62.5 50.8 53.3 ALLERGIES Allergen Reactions Atorvastatin Other: See Comments Pravastatin Other: See Comments CURRENT MEDICATIONS: gabapentin (NEURONTIN) 300 mg capsule Take 1 to 2 capsules at 3PM and 1 to 2 capsules at 7PM. biotin 5 mg tab Take 3 mg by mouth. erenumab-aooe (AIMOVIG AUTOINJECTOR) 140 mg/mL auto-injector Inject 1 mL subcutaneously once every month. Do not shake. SUMAtriptan (IMITREX) 100 mg tablet Take 50 mg to 100 mg at migraine onset. May repeat once in 2 hours if needed. lisinopril (ZESTRIL, PRINIVIL) 5 mg tablet Take 5 mg by mouth once daily. calcium carbonate/vitamin d3(CALCIUM 600 + D(3) 600 MG (1,500)-200 UNIT TAB) Take one(1) tablet twice daily. ZETIA 10 MG TAB Take by mouth. THERAPEUTIC MULTIVITAMIN ORAL TAB Take one(1) tablet daily. OTC NUTRITIONAL SUPPLEMENT calcium 600 mg qd Latest Reference Range AND Units 03/17/24 10:12 Ferritin 14.7 - 205.1 ng/mL 128.0 Iron 41 - 186 ug/dL 135 TIBC 232 - 386 ug/dL 253 Transferrin Saturation 15.0 - 57.0 % 53.4 PHYSICAL EXAMINATION: Vital Signs: BP 126/78 (BP Site: Right Arm, BP Position: Sitting) Pulse 89 Wt 73.3 kg (161 lb 9.6 oz) LMP 10/29/1996 SpO2 97% BMI 30.29 kg/m? PHYSICAL EXAM: General appearance: pleasant, NAD Mental status: alert and oriented, able to provide own history Constitutional: WNL Skin: No visible rashes on exposed skin Neuro: No focal deficits observed, no tremors IMPRESSION: Rls (restless legs syndrome) (lucía (more content not included)... [facility] 09-24-2024 Telephone encounter Note No email response received regarding Nidra device. Mack Mills LPN September 24, 2024 2:49 PM [facility] 09-24-2024 Miscellaneous Notes No email response received regarding Nidra device. Mack Mills LPN September 24, 2024 2:49 PM Email response has not been received as of this time. MARIBEL Rosales Confidential email sent to Nidra industrial relations representative to check on status of appeal. MARIBEL Rosales Is there any update on her Nidra appeal? Thanks, Indiana Brown APRN.PHOTO FINISH PHOTOGRAPHER documented in this encounter [facility] 09-22-2024 Telephone encounter Note Email response has not been received as of this time. MARIBEL Rosales [facility] 09-18-2024 Telephone encounter Note Confidential email sent to Nidra industrial relations representative to check on status of appeal. MARIBEL Rosales [facility] 09-17-2024 Telephone encounter Note Is there any update on her Nidra appeal? Thanks, Indiana Brown APRN.PHOTO FINISH PHOTOGRAPHER [facility] 09-17-2024 Telephone encounter Note Patient notified and voiced understanding. The following approved medications have been transmitted electronically. Requested Prescriptions Signed Prescriptions Disp Refills nitrofurantoin monohydrate and macrocrystal (MACROBID) 100 mg capsule 10 capsule 0 Sig: Take 1 capsule by mouth two times a day for 5 days. Authorizing Provider: LAYLA CHERRY Pharmacy Information Pharmacy Address Telephone [facility]/pharmacy #[id number] [place] [id number] Leigha Casarez RN [facility] 09-17-2024 Miscellaneous Notes Patient notified and voiced understanding. The following approved medications have been transmitted electronically. Requested Prescriptions Signed Prescriptions Disp Refills nitrofurantoin monohydrate and macrocrystal (MACROBID) 100 mg capsule 10 capsule 0 Sig: Take 1 capsule by mouth two times a day for 5 days. Authorizing Provider: LAYLA CHERRY Pharmacy Information Pharmacy Address Telephone [facility]/pharmacy #[id number] [address] [place] [address] Leigha Casarez RN Yes, will send in Rx for Macrobid 100 mg PO BID x 5 days. Layla Cherry APRN.CNM Patient notified. She is questioning if she could be started on an antibiotic now instead of waiting then switching it if needed? She stated she is very miserable with her symptoms. Kourtney Gutierrez RN Left message to call office. Leigha Casarez RN ----- Message from Layla Cherry APRN.CNM sent at 09/17/2024 1:08 PM EST ----- Results reviewed. Please notify patient that urine was sent for culture and will notify if needs treated with antibiotics. Layla Cherry APRN.CNM documented in this encounter [facility] 09-17-2024 Telephone encounter Note Yes, will send in Rx for Macrobid 100 mg PO BID x 5 days. Layla Cherry APRN.CNM [facility] 09-17-2024 Telephone encounter Note Patient notified. She is questioning if she could be started on an antibiotic now instead of waiting then switching it if needed? She stated she is very miserable with her symptoms. Kourtney Gutierrez, RN [facility] 09-17-2024 Telephone encounter Note Left message to call office. Leigha Casarez RN [facility] 09-17-2024 Telephone encounter Note ----- Message from Layla Cherry APRN.CNM sent at 09/17/2024 1:08 PM EST ----- Results reviewed. Please notify patient that urine was sent for culture and will notify if needs treated with antibiotics. Layla Cherry APRN.CNM [facility] 09-17-2024 Note HNO ID: [id number] Author: LAYLA CHERRY APRN.CNM Service: ? Author Type: Advanced Manufacturing Vice President Type: Progress Notes Filed: 09/17/2024 13:07 Note Text: Patient over 30 minutes late for appointment and provider out of office at hospital. Patient C/O frequency and urgency with urination. Requesting urine to be sent for testing. Layla Cherry APRN.CNM [facility] 09-17-2024 History of Presen t illness Narrative Patient over 30 minutes late for appointment and provider out of office at hospital. Patient C/O frequency and urgency with urination. Requesting urine to be sent for testing. Layla Cherry APRN.CNM documented in this encounter [facility] 09-17-2024 History of Presen t illness Narrative Images from the original note were not included. [facility] Follow up/ Established patient visit Date of last visit : 06/16/2024 The following Impression/Plan was copied and pasted from the patient's last [facility] visit on 06/16/24: IMPRESSION: Rls (restless legs syndrome) (primary encounter diagnosis) Baldo Grant is a 83 year old female with RLS PLAN: Check vitamin D at PCP Refill of gabapentin 600 mg at 3 pm and 300 mg at 7 pm Taper of pramipexole: Week 1: take 2 tablets at 3 PM and 1 tablet at 7 PM, Week 2: take 1 tablet at 3 PM and 1 tablet at 7 PM, Week 3: take 1 tablet at 3 PM, then stop Appeal is in process for Nidra by Noctrix wearable device for neuromuscular stimulation Follow up 3 mos Indiana Brown APRN.PHOTO FINISH PHOTOGRAPHER Here for follow up for RLS Doesn't feel well today, has a UTI, going for an appointment later today She was able to taper off pramipexole after her last visit, now it is rare for her to need to get up and walk around in the early evening Nidra by Noctrix Rx neuromuscular stim device was in appeal, need to check on that status If she wakes in the night and can't sleep then the RLS will bother her, has the feeling of her legs waking up--gets up, uses ice pack Gabapentin 600 mg at 3 pm and 300 mg at 7 pm Sleep is crazy recently, meaning in the last month, waking 2x, can't fall back asleep, gets up and watches TV Denies daytime sleepiness studied her--he thinks she has sleep apnea, she snores and has pauses in her breathing. She is claustrophobic, doesn't want an in-lab study, says she would consider a home study. Their daughter is Conchita Vasquez who works in [employer]--and has told her she likely has RAMIRO. Has dentures, upper and lower She doesn't think she could tolerate PAP therapy SLEEP HYGIENE QUESTIONS: Bedtime : 10-11 pm Wake up Time : 630-8 am Time it takes to fall sleep : usually not a problem Number of times patient wakes up per night : 1, this is most bothersome when she can't fall back asleep Reason (s) why patient wakes up during the night : unknown Estimated total sleep time ( in a 24 hour period of time) : 8 Naps : No PATIENT-ENTERED QUESTIONNAIRE SLEEP SCORES 09/16/2024 Sleep Questions Reason for visit: Restless Legs Syndrome On average, hours of sleep in 24 hours: 8 Accidents or near accidents due to drowsy drivin 03/13/2024 06/09/2024 09/16/2024 [place] Sleepiness Scale Score 3 (No clinically significant daytime sleepiness) 1 (No clinically significant daytime sleepiness) 2 (No clinically significant daytime sleepiness) 03/13/2024 06/09/2024 09/16/2024 PROMIS CAT Sleep Disturbance PROMIS Sleep Disturbance T-Score 41 (within normal limits) 49 (within normal limits) 52 (within normal limits) PROMIS Sleep Disturbance Percentile 82 54 42 03/13/2024 06/09/2024 09/16/2024 Restless Leg Syndrome Score 19 (Moderate symptoms) Incomplete 24 (Severe symptoms) 03/13/2024 06/09/2024 09/16/2024 PHQ-9 Score 1 2 1 03/13/2024 06/09/2024 09/16/2024 PROMIS Global Health - (T-Scores - the mean of general population = 50. Five points is a clinically meaningful difference.) Physical T-Score 57.7 50.8 57.7 Mental T-Score 62.5 50.8 53.3 SLEEP RELATED ROS Review of Systems Neurological: Positive for headaches (morning headache). ALLERGIES Allergen Reactions Atorvastatin Other: See Comments Pravastatin Other: See Comments CURRENT MEDICATIONS: biotin 5 mg tab Take 3 mg by mouth. erenumab-aooe (AIMOVIG AUTOINJECTOR) 140 mg/mL auto-injector Inject 1 mL subcutaneously once every month. Do not shake. SUMAtriptan (IMITREX) 100 mg tablet Take 50 mg to 100 mg at migraine onset. May repeat once in 2 hours if needed. lisinopril (ZESTRIL, PRINIVIL) 5 mg tablet Take 5 mg by mouth once daily. calcium carbonate/vitamin d3(CALCIUM 600 + D(3) 600 MG (1,500)-200 UNIT TAB) Take one(1) tablet twice daily. ZETIA 10 MG TAB Take by mouth. THERAPEUTIC MULTIVITAMIN ORAL TAB Take one(1) tablet daily. OTC NUTRITIONAL SUPPLEMENT calcium 600 mg qd gabapentin (NEURONTIN) 300 mg capsule Take 1 to 2 capsules at 3PM and 1 to 2 capsules at 7PM. pramipexole (MIRAPEX) 0.125 mg tablet Week 1: take 2 tablets at 3 PM and 1 tablet at 7 PM, Week 2: take 1 tablet at 3 PM and 1 tablet at 7 PM, Week 3: take 1 tablet at 3 PM, then stop PHYSICAL EXAMINATION: Vital Signs: BP 159/89 Pulse 86 Resp 16 Wt 74.7 kg (164 lb 9.6 oz) LMP 10/29/1996 BMI 30.85 kg/m PHYSICAL EXAM: General appearance: pleasant, NAD Mental status: alert and oriented, able to provide own history Constitutional: WNL Skin: No visible rashes on exposed skin Neuro: No focal deficits observed, no tremors IMPRESSION: Rls (restless legs syndrome) (primary encounter diagnosis) Baldo Grant is a delightful 84 year old female with RLS. She successfully tapered off pramipexole. Her evening RLS has improved since then. She is having increased awakening in the night now--has to get up and use ice pack then for RLS. notes apneas. No change in her years-long snoring. She swore she would never have another in-lab study. She would consider a home sleep study--however she wouldn't use CPAP and she isn't a candidate for oral appliance therapy. PLAN: Check on status of Nidra appeal Rx gabapentin -- continue 600 mg late afternoon or early evening, increase from 300 mg to 600 mg in early evening or HS. We'll see how that helps with her RLS and waking in the night. Hold off on HSAT for now, but we can certainly order it any time for snoring and witnessed apneas Indiana Brown APRN.CNP PDMP website checked and validated. All prescriptions have been APPROPRIATELY filled. No suspicious activity was identified. 09/17/2024 by Indiana Brown APRN.CNP I spent a total of 39 minutes on the date of the service which included preparing to see the patient, [id number] patient care, completing clinical documentation, counseling and educating the patient/family/caregiver, and ordering medications, tests, or procedures. documented in this encounter [facility] 09-17-2024 Note HNO ID: [id number] Author: INDIANA BROWN APRN.CNP Service: ? Author Type: Nurse Practitioner Type: Progress Notes Filed: 09/17/2024 14:43 Note Text: [facility] Follow up/ Established patient visit Date of last visit : 06/16/2024 The following Impression/Plan was copied and pasted from the patient's last [facility] visit on 06/16/24: IMPRESSION: Rls (restless legs syndrome) (primary encounter diagnosis) Baldo Grant is a 83 year old female with RLS PLAN: Check vitamin D at PCP Refill of gabapentin 600 mg at 3 pm and 300 mg at 7 pm Taper of pramipexole: Week 1: take 2 tablets at 3 PM and 1 tablet at 7 PM, Week 2: take 1 tablet at 3 PM and 1 tablet at 7 PM, Week 3: take 1 tablet at 3 PM, then stop Appeal is in process for Nidra by Noctrix wearable device for neuromuscular stimulation Follow up 3 mos Indaina Brown APRN.PHOTO FINISH PHOTOGRAPHER Here for follow up for RLS Doesn't feel well today, has a UTI, going for an appointment later today She was able to taper off pramipexole after her last visit, now it is rare for her to need to get up and walk around in the early evening Nidra by Noctrix Rx neuromuscular stim device was in appeal, need to check on that status If she wakes in the night and can't sleep then the RLS will bother her, has the feeling of her legs waking up--gets up, uses ice pack Gabapentin 600 mg at 3 pm and 300 mg at 7 pm Sleep is crazy recently, meaning in the last month, waking 2x, can't fall back asleep, gets up and watches TV Denies daytime sleepiness studied her--he thinks she has sleep apnea, she snores and has pauses in her breathing. She is claustrophobic, doesn't want an in-lab study, says she would consider a home study. Their daughter is Conchita Vasquez who works in [employer]--and has told her she likely has RAMIRO. Has dentures, upper and lower She doesn't think she could tolerate PAP therapy SLEEP HYGIENE QUESTIONS: Bedtime : 10-11 pm Wake up Time : 630-8 am Time it takes to fall sleep : usually not a problem Number of times patient wakes up per night : 1, this is most bothersome when she can't fall back asleep Reason (s) why patient wakes up during the night : unknown Estimated total sleep time ( in a 24 hour period of time) : 8 Naps : No PATIENT-ENTERED QUESTIONNAIRE SLEEP SCORES 09/16/2024 Sleep Questions Reason for visit: Restless Legs Syndrome On average, hours of sleep in 24 hours: 8 Accidents or near accidents due to drowsy drivin 03/13/2024 06/09/2024 09/16/2024 [place] Sleepiness Scale Score 3 (No clinically significant daytime sleepiness) 1 (No clinically significant daytime sleepiness) 2 (No clinically significant daytime sleepiness) 03/13/2024 06/09/2024 09/16/2024 PROMIS CAT Sleep Disturbance PROMIS Sleep Disturbance T-Score 41 (within normal limits) 49 (within normal limits) 52 (within normal limits) PROMIS Sleep Disturbance Percentile 82 54 42 03/13/2024 06/09/2024 09/16/2024 Restless Leg Syndrome Score 19 (Moderate symptoms) Incomplete 24 (Severe symptoms) 03/13/2024 06/09/2024 09/16/2024 PHQ-9 Score 1 2 1 03/13/2024 06/09/2024 09/16/2024 PROMIS Global Health - (T-Scores - the mean of general population = 50. Five points is a clinically meaningful difference.) Physical T-Score 57.7 50.8 57.7 Mental T-Score 62.5 50.8 53.3 SLEEP RELATED ROS Review of Systems Neurological: Positive for headaches (morning headache). ALLERGIES Allergen Reactions Atorvastatin Other: See Comments Pravastatin Other: See Comments CURRENT MEDICATIONS: biotin 5 mg tab Take 3 mg by mouth. erenumab-aooe (AIMOVIG AUTOINJECTOR) 140 mg/mL auto-injector Inject 1 mL subcutaneously once every month. Do not shake. SUMAtriptan (IMITREX) 100 mg tablet Take 50 mg to 100 mg at migraine onset. May repeat once in 2 hours if needed. lisinopril (ZESTRIL, PRINIVIL) 5 mg tablet Take 5 mg by mouth once daily. calcium carbonate/vitamin d3(CALCIUM 600 + D(3) 600 MG (1,500)-200 UNIT TAB) Take one(1) tablet twice daily. ZETIA 10 MG TAB Take by mouth. THERAPEUTIC MULTIVITAMIN ORAL TAB Take one(1) tablet daily. OTC NUTRITIONAL SUPPLEMENT calcium 600 mg qd gabapentin (NEURONTIN) 300 mg capsule Take 1 to 2 capsules at 3PM and 1 to 2 capsules at 7PM. pramipexole (MIRAPEX) 0.125 mg tablet Week 1: take 2 tablets at 3 PM and 1 tablet at 7 PM, Week 2: take 1 tablet at 3 PM and 1 tablet at 7 PM, Week 3: take 1 tablet at 3 PM, then stop PHYSICAL EXAMINATION: Vital Signs: BP 159/89 Pulse 86 Resp 16 Wt 74.7 kg (164 lb 9.6 oz) LMP 10/29/1996 BMI 30.85 kg/m? PHYSICAL EXAM: General appearance: pleasant, NAD Mental status: alert and oriented, able to provide own history Constitutional: WNL Skin: No visible rashes on exposed skin Neuro: No focal deficits observed, no tremors IMPRESSION: Rls (restless legs syndrome) (primary encounter diagnosis) Baldo Grant is a delightful 84 year o (more content not included)... [facility] 09-17-2024 Telephone encounter Note Patient notified and voiced understanding. Appointment scheduled. FYI. Leigha Casarez RN [facility] 09-17-2024 Miscellaneous Notes Patient notified and voiced understanding. Appointment scheduled. FYI. Leigha Casarez RN needs appointment for rx. Can stop in here after and see CP for visit. Indiana Auguste MD Patient calling c/o UTI symptoms. Having urinary urgency, frequency, lower back pain and dysuria. Stated that she gets these frequently in the past and asking for lab orders to be placed. She has an appointment at 11am at the [facility] with neuro and would like to stop at the lab then. Orders pending if okay or does she need an appointment? Kourtney Gutierrez RN documented in this encounter [facility] 09-17-2024 Telephone encounter Note needs appointment for rx. Can stop in here after and see CP for visit. Indiana Auguste MD [facility] Work Phone: 09-17-2024 Telephone encounter Note Patient calling c/o UTI symptoms. Having urinary urgency, frequency, lower back pain and dysuria. Stated that she gets these frequently in the past and asking for lab orders to be placed. She has an appointment at 11am at the [facility] with neuro and would like to stop at the lab then. Orders pending if okay or does she need an appointment? Kourtney Gutierrez RN [facility] 07-22-2024 Note HNO ID: [id number] Author: INDIANA AUGUSTE MD Service: ? Author Type: Physician Type: Progress Notes Filed: 07/22/2024 09:08 Note Text: José Miguel is a 84 year old who presents for an annual gynecologic exam without manufacturing leader c/o.. Last Pap: 02/08/2011 normal HPV: 09/29/2005 negative History of abnormal pap: No Last mammogram: 2023 normal OB History T0 L4 SAB0 IAB0 Ectopic0 Multiple0 Live Births0 Supplier Manager History LMP: 10/29/1996, Postmenopausal Age at Menarche: Age at First : Age at Menopause: Supplier Manager History Comments: Sexual Activity: Yes; Male Contraception: Surgical, Tubal Ligation PAST MEDICAL HISTORY Diagnosis Date Disorder of bone and cartilage, unspecified Mixed hyperlipidemia Hyperlipidemia Moderate dysplasia of cervix 10/29/1997 ? MARIA ELENA 3 Osteoarthrosis, unspecified whether generalized or localized, other specified sites Osteoarthritis Osteopenia BMD 01/31/2024 PAST SURGICAL HISTORY Procedure Laterality Date BREAST BIOPSY NEEDLE RIGHT COLONOSCOPY FLX DX W/COLLJ SPEC WHEN PFRMD ColonoscopyWITH POLYPECTOMY CONIZATION CERVIX W/WO DANDC RPR ELTRD EXC 1997 LEEP-Cervix Done for CIN3; cervicitis only was found LIG/TRNSXJ FLP TUBE ABDL/VAG APPR UNI/BI Tubal ligation FAMILY HISTORY Problem Relation Age of Onset Hypertension Mother Diabetes Father Heart Father Hypertension Father Cancer Sister Lung Colon Cancer Brother Cancer Maternal Grandmother uterine SOCIAL HISTORY Social History Tobacco Use Smoking status: Never Smokeless tobacco: Never Vaping Use Vaping status: Never Used Substance Use Topics Alcohol use: Yes Comment: rarely 1 per month Drug use: No Allergies and current medication updated:Yes SENSITIVE EXAM: The sensitive examination was discussed with the Patient or Patient's Authorized Abstract Checker. As applicable, any other physician, advance practice provider, medical student, or other health professional student that will be observing or involved in the sensitive examination for educational or training purposes was discussed with the Patient or Authorized Abstract Checker. The Patient or Authorized Abstract Checker has agreed to proceed with the sensitive examination. (Sensitive examination includes inspection and/or palpation of the breasts, pelvis, prostate and anorectal regions). EXAM: BP 116/70 Ht 5' 1.25 (1.56m) Wt 164 lb (74.4kg) LMP 10/29/1996 BMI 30.73 kg/(m2). GENERAL: pleasant, female in no apparent distress BREAST: soft, non-tender, symmetric, no dominant mass, normal nipple-areolar complex, no lymphadenopathy, and no nipple discharge CHEST: Normal inspiratory effort ABDOMEN: soft, non-tender, and no masses PELVIC: external genitalia normal, normal Bartholin's glands, urethra, Grano's glands, no vulvar lesions, physiologic discharge present, normal appearing perineal body and perianal region, cervix surgically absent, cystocele 3rd degree, rectocele 1st degree, atrophic flattened epithelium BIMANUAL: no adnexal masses, non-tender, and uterus surgically absent RECTOVAGINAL: deferred. ASSESSMENT/PLAN: 1) Health maintenance: Pap/HPV screening no longer needed Mammogram ordered BMD: up to date 2) Follow up one year or sooner as needed Indiana Auguste MD [facility] 07-22-2024 History of Presen t illness Narrative José Miguel is a 84 year old who presents for an annual gynecologic exam without manufacturing leader c/o.. Last Pap: 02/08/2011 normal HPV: 09/29/2005 negative History of abnormal pap: No Last mammogram: 2023 normal OB History T0 L4 SAB0 IAB0 Ectopic0 Multiple0 Live Births0 Supplier Manager History LMP: 10/29/1996, Postmenopausal Age at Menarche: Age at First : Age at Menopause: Supplier Manager History Comments: Sexual Activity: Yes; Male Contraception: Surgical, Tubal Ligation PAST MEDICAL HISTORY Diagnosis Date Disorder of bone and cartilage, unspecified Mixed hyperlipidemia Hyperlipidemia Moderate dysplasia of cervix 10/29/1997 ? MARIA ELENA 3 Osteoarthrosis, unspecified whether generalized or localized, other specified sites Osteoarthritis Osteopenia BMD 01/31/2024 PAST SURGICAL HISTORY Procedure Laterality Date BREAST BIOPSY NEEDLE RIGHT COLONOSCOPY FLX DX W/COLLJ SPEC WHEN PFRMD ColonoscopyWITH POLYPECTOMY CONIZATION CERVIX W/WO D&C RPR ELTRD EXC 1997 LEEP-Cervix Done for CIN3; cervicitis only was found LIG/TRNSXJ FLP TUBE ABDL/VAG APPR UNI/BI Tubal ligation FAMILY HISTORY Problem Relation Age of Onset Hypertension Mother Diabetes Father Heart Father Hypertension Father Cancer Sister Lung Colon Cancer Brother Cancer Maternal Grandmother uterine SOCIAL HISTORY Social History Tobacco Use Smoking status: Never Smokeless tobacco: Never Vaping Use Vaping status: Never Used Substance Use Topics Alcohol use: Yes Comment: rarely 1 per month Drug use: No Allergies and current medication updated:Yes SENSITIVE EXAM: The sensitive examination was discussed with the Patient or Patient's Authorized Abstract Checker. As applicable, any other physician, advance practice provider, medical student, or other health professional student that will be observing or involved in the sensitive examination for educational or training purposes was discussed with the Patient or Authorized Abstract Checker. The Patient or Authorized Abstract Checker has agreed to proceed with the sensitive examination. (Sensitive examination includes inspection and/or palpation of the breasts, pelvis, prostate and anorectal regions). EXAM: BP 116/70 Ht 5' 1.25 (1.56m) Wt 164 lb (74.4kg) LMP 10/29/1996 BMI 30.73 kg/(m^2). GENERAL: pleasant, female in no apparent distress BREAST: soft, non-tender, symmetric, no dominant mass, normal nipple-areolar complex, no lymphadenopathy, and no nipple discharge CHEST: Normal inspiratory effort ABDOMEN: soft, non-tender, and no masses PELVIC: external genitalia normal, normal Bartholin's glands, urethra, Grano's glands, no vulvar lesions, physiologic discharge present, normal appearing perineal body and perianal region, cervix surgically absent, cystocele 3rd degree, rectocele 1st degree, atrophic flattened epithelium BIMANUAL: no adnexal masses, non-tender, and uterus surgically absent RECTOVAGINAL: deferred. ASSESSMENT/PLAN: 1) Health maintenance: Pap/HPV screening no longer needed Mammogram ordered BMD: up to date 2) Follow up one year or sooner as needed Indiana Auguste MD documented in this encounter [facility] 06-16-2024 History of Presen t illness Narrative Images from the original note were not included. [facility] Follow up/ Established patient visit Date of last visit : 03/17/2024 The following Impression/Plan was copied and pasted from the patient's last [facility] visit on 03/17/24: IMPRESSION: Rls (restless legs syndrome) (primary encounter diagnosis) Baldo Grant is a 83 year old female with PMH of refractory RLS, migraines, vitamin D deficiency, HTN, HLD. PLAN: Discussed augmentation from pramipexole Stop morning dose of pramipexole Take gabapentin 600 mg and pramipexole 0.25 mg at 4pm rather than 5pm then gabapentin 300 mg and pramipexole 0.25 mg at 8pm or 9pm. Check iron stores today Rx Nidra by Noctrix, new wearable prescription device for neurostim to treat RLS Has tried lyrica and has been on higher dose of pramipexole, is on vitamin D Follow up 3 mos Indiana Brown APRN.PHOTO FINISH PHOTOGRAPHER Here for follow up for RLS. At her last visit we checked iron stores which were normal. RLS sxs 4-5 days per week if she hasn't taken medication by a certain time. So she'll take gabapentin 600 mg at 3 PM rather than 4-5 PM. Takes pramipexole 0.25 mg with that dose. Then takes pramipexole 0.25 mg plus gabapentin 300 mg 4 hours later. All in her lower legs, legs feel nervous, has to move her feet, only minimal relief with that, does better if she gets up and walks around. Less severe and less often in her arms. Can have leg sxs when she awakes in the night, doesn't usually have to get up in the night, estimates up once every 2 wks in the night. Gabapentin make her feel a little dazed in the morning, less so than pregabalin made her feel Latest Reference Range & Units 03/17/24 10:12 Ferritin 14.7 - 205.1 ng/mL 128.0 Iron 41 - 186 ug/dL 135 TIBC 232 - 386 ug/dL 253 Transferrin Saturation 15.0 - 57.0 % 53.4 Gabapentin 300 mg #90 last filled 03/19/24 PDMP website checked and validated. All prescriptions have been APPROPRIATELY filled. No suspicious activity was identified. 06/16/2024 by Indiana Brown APRN.PHOTO FINISH PHOTOGRAPHER SLEEP HYGIENE QUESTIONS: Bedtime : 10-11 pm Wake up Time : 6-8 am Time it takes to fall sleep : not an issue Number of times patient wakes up per night : usually none but occas due to RLS Estimated total sleep time ( in a 24 hour period of time) : 7 Naps : No PATIENT-ENTERED QUESTIONNAIRE SLEEP SCORES 06/09/2024 Sleep Questions Reason for visit: Restless Legs Syndrome Accidents or near accidents due to drowsy drivin 03/13/2024 06/09/2024 [place] Sleepiness Scale Score 3 (No clinically significant daytime sleepiness) 1 (No clinically significant daytime sleepiness) 03/13/2024 06/09/2024 PROMIS CAT Sleep Disturbance PROMIS Sleep Disturbance T-Score 41 (within normal limits) 49 (within normal limits) PROMIS Sleep Disturbance Percentile 82 54 03/13/2024 06/09/2024 Restless Leg Syndrome Score 19 (Moderate symptoms) Incomplete 11/21/2023 03/13/2024 06/09/2024 PHQ-9 Score 0 1 2 11/21/2023 03/13/2024 06/09/2024 PROMIS Global Health - (T-Scores - the mean of general population = 50. Five points is a clinically meaningful difference.) Physical T-Score 54.1 57.7 50.8 Mental T-Score 67.6 62.5 50.8 ALLERGIES Allergen Reactions Atorvastatin Other: See Comments Pravastatin Other: See Comments CURRENT MEDICATIONS: erenumab-aooe (AIMOVIG AUTOINJECTOR) 140 mg/mL auto-injector Inject 1 mL subcutaneously once every month. Do not shake. SUMAtriptan (IMITREX) 100 mg tablet Take 50 mg to 100 mg at migraine onset. May repeat once in 2 hours if needed. lisinopril (ZESTRIL, PRINIVIL) 5 mg tablet Take 5 mg by mouth once daily. calcium carbonate/vitamin d3(CALCIUM 600 + D(3) 600 MG (1,500)-200 UNIT TAB) Take one(1) tablet twice daily. ZETIA 10 MG TAB Take by mouth. THERAPEUTIC MULTIVITAMIN ORAL TAB Take one(1) tablet daily. OTC NUTRITIONAL SUPPLEMENT calcium 600 mg qd pramipexole (MIRAPEX) 0.125 mg tablet Week 1: take 2 tablets at 3 PM and 1 tablet at 7 PM, Week 2: take 1 tablet at 3 PM and 1 tablet at 7 PM, Week 3: take 1 tablet at 3 PM, then stop gabapentin (NEURONTIN) 300 mg capsule Take 1 to 2 capsules at 3PM and 1 capsules at 7PM. PHYSICAL EXAMINATION: Vital Signs: BP 119/78 (BP Site: Left Arm, BP Position: Sitting) Pulse 80 Wt 75.2 kg (165 lb 12.6 oz) LMP 10/29/1996 SpO2 98% BMI 31.32 kg/m PHYSICAL EXAM: General appearance: pleasant, NAD Mental status: alert and oriented, able to provide own history Constitutional: WNL Skin: No visible rashes on exposed skin Neuro: No focal deficits observed, no tremors IMPRESSION: Rls (restless legs syndrome) (primary encounter diagnosis) Baldo Grant is a 83 year old female with RLS PLAN: Check vitamin D at PCP Refill of gabapentin 600 mg at 3 pm and 300 mg at 7 pm Taper of pramipexole: Week 1: take 2 tablets at 3 PM and 1 tablet at 7 PM, Week 2: take 1 tablet at 3 PM and 1 tablet at 7 PM, Week 3: take 1 tablet at 3 PM, then stop Appeal is in process for Nidra by [employer] wearable device for neuromuscular stimulation Follow up 3 mos Indiana Brown APRN.PHOTO FINISH PHOTOGRAPHER documented in this encounter [facility] 06-09-2024 Telephone encounter Note From: Preeti Berg To: Office of Babatunde Penaloza MD Sent: 06/09/2024 1:12 PM EDT Subject: Medication Renewal Request Refills have been requested for the following medications: erenumab-aooe (AIMOVIG AUTOINJECTOR) 140 mg/mL auto-injector [Babatunde Penaloza MD] Preferred pharmacy: [facility][id number] [place] [address] - [address] [phone] Delivery method: Pickup [facility] 06-09-2024 Miscellaneous Notes From: Preeti Grant To: Office of Babatunde Penaloza MD Sent: 06/09/2024 1:12 PM EDT Subject: Medication Renewal Request Refills have been requested for the following medications: erenumab-aooe (AIMOVIG AUTOINJECTOR) 140 mg/mL auto-injector [Babatunde Penaloza MD] Preferred pharmacy: [facility]Y #[id number] [place] [address] [address] [phone] Delivery method: Pickup documented in this encounter [facility] 03-17-2024 Telephone encounter Note Faxed Rx to 43 pages to [facility] [phone] [facility] 03/17/2024. Quiana Tejeda LPN [facility] 03-17-2024 Miscellaneous Notes Faxed Rx to 43 pages to [id number] [facility] 03/17/2024. Quiana Tejeda LPN documented in this encounter [facility] 03-17-2024 Telephone encounter Note Faxed OV with Torey Brown on 03/17/2024 to [facility] [address]. Cline [phone]. Quiana Tejeda LPN [facility] 03-17-2024 Miscellaneous Notes Faxed OV with Torey Brown on 03/17/2024 to [facility] Dr. Cline [phone]. Quiana Tejeda LPN documented in this encounter [facility] 03-17-2024 History of Presen t illness Narrative Images from the original note were not included. [facility] Follow up/ Established patient visit Date of last visit : 12/24/23 The following Impression/Plan was copied and pasted from the patient's last [facility] visit on 12/24/23: ASSESSMENT/PLAN: 1. RLS (restless legs syndrome) - ICD9: 333.94, ICD10: G25.81 Patient with known history of RLS as above. Initially treated with Lyrica with goal of d/c of Mirapex (risk of Augmentation) and treat headaches with decreased freq in dosing. However, having side effects on Lyrica as above. Reviewed meds and never tried on gabapentin - will attempt to transition from Lyrica to gabapentin to see if tolerates better. HOWEVER, also needs to take meds earlier as currently taking after RLS symptoms have already started (thus, playing catch up in treatment). Discussed with patient and plan as follows with pt understanding possible SE and ADRs and noting that we will decrease dose of Mirapex (not needing in AM): Stop the Lyrica. Start Gabapentin as follows: 300mg capsule at 5PM, then another 300mg capsule at 9PM. 3. Start Mirapex as follows: Take 1/2 tablet at 5PM and 1/2 tablet at 9PM 4. Stop the morning dose of Mirapex. 5. IF AFTER 2 NIGHTS THE RESTLESS LEGS IS NOT CONTROLLED, INCREASE THE 5PM DOSE OF GABAPENTIN TO 600MG OR 2 CAPSULES. Note that I have requested most recent renal and hepatic function labs from PCP. Andrew Celestin MD Here for follow up for RLS. She still takes a 1/2 pill of pramipexole 0.5 mg in the morning, if not then her leg symptoms would start late afternoon. Sometimes takes the first dose of gabapentin at 4 PM rather than 5 PM to try to take it before RLS symptoms start. She takes gabapentin 600 mg and 1/2 pramipexole 0.5 mg at 5 pm and gabpentin 300 mg and 1/2 pramipexole 0.5 mg at 9 pm. Arms may bother her in the evening while watching TV, can occur along with legs symptoms that require her to get up and walk around. With current med regimen she still has RLS sxs 2-3 days per week. L<R. She is left hand dominant. Legs wake up separate from the rest of her body around 5 AM, she'll get up and go to the bathroom, not quite like RLS. She goes back to sleep, gets good sleep then. RLS can be difficult in car and flying Her mother had RLS 08/15/23 vit D 31--she is on a supplement Other meds tried for RLS: Lyrica, higher dose of pramipexole but augmentation SLEEP HYGIENE QUESTIONS: Bedtime : 10-11 pm Wake up Time : 6-8 am Time it takes to fall sleep : not an issue Number of times patient wakes up per night : usually none Estimated total sleep time ( in a 24 hour period of time) : 7 Naps : No Last filled 02/20/24 gabapentin PDMP website checked and validated. All prescriptions have been APPROPRIATELY filled. No suspicious activity was identified. 03/17/2024 by Indiana Brown APRN.PHOTO FINISH PHOTOGRAPHER PATIENT-ENTERED QUESTIONNAIRE SLEEP SCORES 03/13/2024 Sleep Questions Reason for visit: Restless Legs Syndrome On average, hours of sleep in 24 hours: 7 Accidents or near accidents due to drowsy drivin 03/13/2024 [place] Sleepiness Scale Score 3 (No clinically significant daytime sleepiness) 03/13/2024 PROMIS CAT Sleep Disturbance PROMIS Sleep Disturbance T-Score 41 (within normal limits) PROMIS Sleep Disturbance Percentile 82 03/13/2024 Restless Leg Syndrome Score 19 (Moderate symptoms) 11/20/2022 11/21/2023 03/13/2024 PHQ-9 Score 1 0 1 03/04/2023 11/21/2023 03/13/2024 PROMIS Global Health - (T-Scores - the mean of general population = 50. Five points is a clinically meaningful difference.) Physical T-Score 57.7 54.1 57.7 Mental T-Score 67.6 67.6 62.5 SLEEP RELATED ROS Review of Systems Gastrointestinal: Positive for constipation. Neurological: Positive for headaches. ALLERGIES Allergen Reactions Atorvastatin Other: See Comments Pravastatin Other: See Comments CURRENT MEDICATIONS: gabapentin (NEURONTIN) 300 mg capsule Take 1 to 2 capsules at 5PM and 1 capsules at 9PM. erenumab-aooe (AIMOVIG AUTOINJECTOR) 140 mg/mL auto-injector Inject 1 mL subcutaneously once every month. Do not shake. SUMAtriptan (IMITREX) 100 mg tablet Take 50 mg to 100 mg at migraine onset. May repeat once in 2 hours if needed. lisinopril (ZESTRIL, PRINIVIL) 5 mg tablet Take 5 mg by mouth once daily. calcium carbonate/vitamin d3(CALCIUM 600 + D(3) 600 MG (1,500)-200 UNIT TAB) Take one(1) tablet twice daily. ZETIA 10 MG TAB Take by mouth. THERAPEUTIC MULTIVITAMIN ORAL TAB Take one(1) tablet daily. OTC NUTRITIONAL SUPPLEMENT calcium 600 mg qd pramipexole (MIRAPEX) 0.5 mg tablet TAKE 0.5 TABLET IN THE MORNING AND 1 TABLET IN THE EVENING PHYSICAL EXAMINATION: Vital Signs: BP 130/81 Pulse 73 Resp 18 Wt 74.7 kg (164 lb 9.6 oz) LMP 10/29/1996 SpO2 95% BMI 31.10 kg/m PHYSICAL EXAM: General appearance: pleasant, NAD Mental status: alert and oriented, able to provide own history Constitutional: overweight Skin: No visible rashes on exposed skin Neuro: No focal deficits observed, no tremors IMPRESSION: Rls (restless legs syndrome) (primary encounter diagnosis) Baldo Grant is a 83 year old female with PMH of refractory RLS, migraines, vitamin D deficiency, HTN, HLD. PLAN: Discussed augmentation from pramipexole Stop morning dose of pramipexole Take gabapentin 600 mg and pramipexole 0.25 mg at 4pm rather than 5pm then gabapentin 300 mg and pramipexole 0.25 mg at 8pm or 9pm. Check iron stores today Rx Nidra by [employer], new wearable prescription device for neurostim to treat RLS Has tried lyrica and has been on higher dose of pramipexole, is on vitamin D Follow up 3 mos Indiana Brown APRN.BRITTNEY documented in this encounter [facility] 03-17-2024 Instructions Indiana Brown APRN.CNP - 03/17/2024 9:49 AM EDT Labs today for iron stores Stop morning dose of pramipexole We will send prescription for Nidra wearable device by [employer] documented in this encounter [facility] 02-01-2024 Miscellaneous Notes February 01, 2024 PID: [id number] Baldo Grant [address] [place] [address] Dear Agustin Rudy, We are pleased to inform you that the results of your recent breast imaging exam on 01/31/2024 are normal. Early detection of cancer is very important. We also understand recommendations regarding breast cancer screening are controversial. Please discuss with your primary care provider which strategy is best for you and whether a mammogram is right for you. Your imaging studies and report will be kept on file at [facility] as part of your permanent medical record and are available for your continuing care. Thank you for allowing us to help in meeting your health care needs. Sincerely, Dr. Michael Interpreting Radiologist (Normal over 40) documented in this encounter [facility] 01-31-2024 History of Presen t illness Narrative Radiology Service Progress Note PATIENT NAME: Baldo Grant DATE OF SERVICE: January 31, 2024 TIME: 8:16 AM PATIENT IDENTITY VERIFICATION COMPLETED USING TWO (2) IDENTIFIERS: Name and Date of confirmed by patient verbally. FALL SCREENING: Has the patient had 2 falls in the last year or 1 fall with injury or currently using an Ambulatory Assistive Device (Walker, Cane, Wheelchair, Crutches, etc.)? No PATIENT GENDER DATA: Female. status: : No status: NO. PATIENT RELEVANT IMPLANT DATA REVIEWED: Not Applicable PATIENT PRESENTS WITH AN IMPLANTABLE OR ATTACHED AUTOMOTIVE TITLE CLERK: No RADIOLOGY DEPARTMENT: Bone Density PERIPHERAL IV DATA: Not applicable SIGNED BY: RT Ophelia(R) January 31, 2024 8:16 AM documented in this encounter [facility] 01-31-2024 History of Presen t illness Narrative Radiology Service Progress Note PATIENT NAME: Baldo Grant DATE OF SERVICE: January 31, 2024 TIME: 7:49 AM PATIENT IDENTITY VERIFICATION COMPLETED USING TWO (2) IDENTIFIERS: Name and Date of confirmed by patient verbally. FALL SCREENING: Has the patient had 2 falls in the last year or 1 fall with injury or currently using an Ambulatory Assistive Device (Walker, Cane, Wheelchair, Crutches, etc.)? No PATIENT GENDER DATA: Female. status: : No status: NO. PATIENT RELEVANT IMPLANT DATA REVIEWED: Not Applicable PATIENT PRESENTS WITH AN IMPLANTABLE OR ATTACHED AUTOMOTIVE TITLE CLERK: No RADIOLOGY DEPARTMENT: Mammography PERIPHERAL IV DATA: Not applicable SIGNED BY: Aleks Westbrooko Rosalva January 31, 2024 7:49 AM documented in this encounter [facility] 12-18-2023 Telephone encounter Note Phone call placed [facility], last seen in person [facility] for RLS, following with Dr. Penaloza for [place] currently. OV with Shane Baum 03/08/2023 RLS, [place]. Patient currently taking Lyrica 100 mg, 25 mg typically controlling symptoms, needed medication refill expires on 01/06/2024, denied sleep concerns and advised can address RLS exclusively with follow up. Patient verbalized understanding, agreed with plan of care. Quiana Tejeda LPN [facility] 12-18-2023 Miscellaneous Notes Phone call placed patient scheduled follow up on MyChart for 20 minutes, last seen in person [facility] 2020 for RLS, following with Dr. Penaloza for [place] currently. OV with Shane Baum 03/08/2023 RLS, [place]. Patient currently taking Lyrica 100 mg, 25 mg typically controlling symptoms, needed medication refill expires on 01/06/2024, denied sleep concerns and advised can address RLS exclusively with follow up. Patient verbalized understanding, agreed with plan of care. Quiana Tejeda LPN documented in this encounter [facility] 12-11-2023 Miscellaneous Notes Physician: Tremaine Call from patient requesting refill. Please E-Scribe Last office visit 11/21/23 with Tremaine in person Next office visit Not scheduled. Requested Prescriptions Pending Prescriptions Disp Refills erenumab-aooe (AIMOVIG AUTOINJECTOR) 140 mg/mL auto-injector 3 mL 3 Sig: Inject 1 mL subcutaneously once every month. Do not shake. Pharmacy Name: [facility] documented in this encounter [facility] 06-22-2023 Miscellaneous Notes Provider: Shane Baum [facility] pharmacy requesting refill via Mychart. Last OV: 03/08/2023 Future OV: None Scheduled Last prescribed: 04/13/2023 Requested Prescriptions Pending Prescriptions Disp Refills pramipexole (MIRAPEX) 0.5 mg tablet [Pharmacy Med Name: PRAMIPEXOLE 0.5 MG TABLET] 60 tablet 2 Sig: TAKE 1/2 TABLET IN AM AND 1 TABLET IN PM Request sent to provider to review. Thank you! documented in this encounter [facility] 06-01-2023 [facility] All prescriptions have been APPROPRIATELY filled. No suspicious activity was identified. June 01, 2023 Mirna Baum APRN.PHOTO FINISH PHOTOGRAPHER BELIA 03/08/23 with KD NOV none scheduled Refill 03/08/23 with qty: 30 and 2 refills NORMA Rajan Assessment/Plan Assessment/Plan: G25.81 RLS (restless legs syndrome) (primary encounter diagnosis) Comment: Currently taking Mirapex 0.5mg 1 tablet at bedtime and 1/2 tablet in AM as well as Lyrica 125mg QHS with goal of weaning off Mirapex. At time of last OV goal was to DC AM dose of Mirapex and instead start 25mg Lyrica in AM, however, she did not make medication change. Today she reports some worsening of symptoms around 8PM with resolution before going to bed at 11PM. Discussed options regarding medications including adding dose of Lyrica in early evening or splitting PM Lyrica so that half dose is taken earlier in evening as well as discontinuing AM Mirapex dose and starting possible AM Lyrica. Of note, she has had SE of AM grogginess with 150mg dose of Lyrica in the past. At this time will add 25mg Lyrica earlier in evening (4PM). If tolerating medication and symptoms have improved will then DC AM Mirapex. If sx return may further adjust Lyrica dose as tolerated. She will contact her PCP to have recent renal panel faxed to the office. R51.9 Intractable episodic headache, unspecified headache type Comment: Currently taking Aimovig and Imitrex as prescribed by headache clinic. Continue follow up with Dr. Penaloza as previously scheduled. Mirna Baum APRN.PHOTO FINISH PHOTOGRAPHER documented in this encounter [facility] 06-01-2023 Miscellaneous Notes Physician: Tremaine Call from patient requesting refill. Please E-Scribe Last office visit 11/23/22 with Tremaine virtual Next office visit None Scheduled NA Requested Prescriptions Pending Prescriptions Disp Refills SUMAtriptan (IMITREX) 100 mg tablet 9 tablet 1 Sig: Take 50 mg to 100 mg at migraine onset. May repeat once in 2 hours if needed. Pharmacy Name: [facility] documented in this encounter [facility] 04-13-2023 Miscellaneous Notes Per provider, sig reads: Take 1/2 tablet in the am and 1 tablet in the pm. Spoke with pharmacy and advised of provider's message. documented in this encounter [facility] 04-09-2023 History of Presen t illness Narrative Per Dr. Nelson, Baldo was provided with powerstep gel inserts, size 6, and instructed/educated in its application, wear, and care. All questions were answered, and patient was able to demonstrate competence with the necessary skills to utilize the above equipment. Shakira Connor LPN Images from the original note were not included. Initial Podiatric Office Visit: Chief Complaint: This 82 year old female who presents with chief complaint:right foot pain HPI Patient presents to clinic with complaint of pain in right foot She has pain in the ball of right foot beneath the 2nd metatarsal She complains of painful callus which is painful with ambulation She has not done much for this other than change shoes. PAIN EVALUATION 04/05/2023 1601 Pain Level: 5 Pain Location: Foot-Right Description: Sore Duration Units: Months Frequency: Continuous No results found for: HBA1C PCP: Mary Azar, DO PAST MEDICAL HISTORY Diagnosis Date Disorder of bone and cartilage, unspecified Mixed hyperlipidemia Hyperlipidemia Moderate dysplasia of cervix 1997 ? MARIA ELENA 3 Osteoarthrosis, unspecified whether generalized or localized, other specified sites Osteoarthritis Current Outpatient Medications Medication Sig pregabalin (LYRICA) 100 mg capsule Take 1 capsule by mouth daily at bedtime for 90 days. pregabalin (LYRICA) 25 mg capsule Take 1 capsule by mouth twice daily for 90 days. erenumab-aooe (AIMOVIG AUTOINJECTOR) 140 mg/mL auto-injector Inject 1 mL subcutaneously once every month. Do not shake. SUMAtriptan (IMITREX) 100 mg tablet Take 50 mg to 100 mg at migraine onset. May repeat once in 2 hours if needed. pramipexole (MIRAPEX) 0.5 mg tablet PRN lisinopril (ZESTRIL, PRINIVIL) 5 mg tablet Take 5 mg by mouth once daily. calcium carbonate/vitamin d3(CALCIUM 600 + D(3) 600 MG (1,500)-200 UNIT TAB) Take one(1) tablet twice daily. ZETIA 10 MG TAB Take by mouth. THERAPEUTIC MULTIVITAMIN ORAL TAB Take one(1) tablet daily. OTC NUTRITIONAL SUPPLEMENT calcium 600 mg qd No current facility-administered medications for this visit. ALLERGIES Allergen Reactions Atorvastatin Other: See Comments Pravastatin Other: See Comments Seasonal [Other] nasal congestion, drainage PAST SURGICAL HISTORY Procedure Laterality Date BREAST BIOPSY NEEDLE RIGHT COLONOSCOPY FLX DX W/COLLJ SPEC WHEN PFRMD ColonoscopyWITH POLYPECTOMY CONIZATION CERVIX W/WO D&C RPR ELTRD EXC 1997 LEEP-Cervix Done for CIN3; cervicitis only was found LIG/TRNSXJ FLP TUBE ABDL/VAG APPR UNI/BI Tubal ligation FAMILY HISTORY Problem Relation Age of Onset Cancer Maternal Grandmother uterine Diabetes Father Heart Father Hypertension Father Hypertension Mother Colon Cancer Brother Cancer Sister Lung Social History Tobacco Use Smoking status: Never Smokeless tobacco: Never Vaping Use Vaping Use: Never used Substance Use Topics Alcohol use: Yes Comment: rarely 1 per month Drug use: No REVIEW OF SYSTEMS GENERAL: Negative for Malaise, significant weight loss, fever RESPIRATORY: Negative for cough, wheezing and shortness of breath CARDIOVASCULAR: Negative for chest pain, leg swelling and palpitations GI: Negative for abdominal discomfort, blood in stools or black stools and change in bowel habits : Negative for dysuria, frequency and incontinence MUSCULOSKELETAL: Negative for joint pain or swelling, back pain, and muscle pain. SKIN: Negative for lesions, rash, and itching. HEMATOLOGY/LYMPHOLOGY Negative for prolonged bleeding, bruising easily, and swollen nodes. ENDOCRINE: Negative for cold or heat intolerance, polyuria, polydipsia and goiter. NEURO: negative Physical Exam: Constitutional: Pt is a well developed 82 year old female who is alert, oriented and cooperative Eyes: Following during examination. No redness or drainage. Respiratory: RR normal and nonlabored. Even breathing. No evidence of distress or shortness of breath. Psychology: Patient is engaged during conversation. Normal affect and mood. Does not appear depressed or anxious during encounter. Vascular: Dorsalis pedis and posterior tibial pulses palpable as b/l Capillary Fill time < 5 seconds to digits 1-5 b/l Skin temperature warm to warm proximal to distal b/l Hair growth present to digits Neurological: intact light touch/epicritic sensation b/l intact protective sensation no significant neurological deficits Dermatological: Nails 1-5 b/l appear normal. Webspaces clean and dry 1-4 b/l. Skin appears well hydrated and supple. good color, texture, turgor. No open lesions present. Porokeratosis to the plantar aspect of b/l 2nd metatarsal, the lateral aspect of right forefoot and lateral aspect of right heel. Musculoskeletal/Orthopaedic: Patient has pain to palpation of porokeratotic lesion of right 2nd metatarsal Foot type is neutral structurally AJ ROM is full with knee extended and flexed 1st MPJ is decreased when loaded and no pain or crepitus are noted with ROM. MTJ, STJ are full and free of pain and crepitus. +5/5 muscle strength dorsiflexion, plantarflexion, inversion, eversion b/l Radiographs: 3 views right foot ordered April 09, 2023: I have personally reviewed and interpreted these XR myself: no acute findings ASSESSMENT: (Q82.8) Porokeratosis (primary encounter diagnosis) PLAN: 1. History and physical examination performed. 2. XR reviewed with patient and interpreted today 3. Porokeratosis debrided to right 2nd metatarsal, left 2nd metatarsal, right lateral heel and right forefoot with 15 blade. Tca applied under occlusion. 4. Will treat with inserts and donut hole offloading 5. F/u prn Alessandro Nelson DPM Podiatry [address] [facility] [address] Dept: [phone] Dept AMB ROOMING INTAKE FLOWSHEET DATA Pain Pain Level: 5 Pain Location: Foot-Right Description: Sore Duration Units: Months Frequency: Continuous Patient presents with: Right Foot - New, Pain Patient present to office with right foot pain. Patient states there was no injury to foot. Patient rates pain 5/10 on pian scale. Shakira Connor LPN documented in this encounter [facility] 04-09-2023 Instructions Alessandro Nelson - 04/09/2023 2:37 PM EDT Powerstep Original Full length. Can purchase at [employer] here in [place], [employer] in [place] or [place]. Also can find in [employer] in [facility]. Powersteps can also be purchased online, starting around $25.00 If you have a metatarsal or dancer pad for your feet apply the pad directly to the insole so you can interchange between your shoes. Find a shoe with a removable insole and take this out and replace with your powerstep insole. Always bring powersteps with you when shopping for shoes so that you can make sure that everything fits well together Trichloroacetic acid (TCA) has been applied to the plantar warts. Rinse off in 12 hours and keep clean and dry. May bathe and shower normally starting the day after treatment The area is expected to burn and blister in about 1-3 days, if painful soak in plain, cool water. If blistered, you may drain the blister with a clean, STERILIZED needle and apply OTC antibiotic ointment and band aid to area. Repeat 2-3 times daily as needed. Tylenol or Aleve as needed for pain, provided you have no allergies to either of these. Keep scheduled follow up appointment to have wart(s) re-evaluated and/or additional treatments. documented in this encounter [facility] 04-09-2023 History of Presen t illness Narrative Radiology Service Progress Note PATIENT NAME: Baldo Grant DATE OF SERVICE: April 10, 2023 TIME: 11:18 AM PATIENT IDENTITY VERIFICATION COMPLETED USING TWO (2) IDENTIFIERS: Name and Date of confirmed by patient verbally. FALL SCREENING: Has the patient had 2 falls in the last year or 1 fall with injury or currently using an Ambulatory Assistive Device (Walker, Cane, Wheelchair, Crutches, etc.)? No PATIENT GENDER DATA: Female. status: : No status: NO. PATIENT RELEVANT IMPLANT DATA REVIEWED: Not Applicable RADIOLOGY DEPARTMENT: General X-ray: Exam(s) Completed: Lower Extremity X-Ray(s): Foot, Right and Wt. Bearing PERIPHERAL IV DATA: Not applicable SIGNED BY: RT Neida(R) April 10, 2023 11:18 AM documented in this encounter [facility] 04-03-2023 Miscellaneous Notes Ambulatory Pharmacy Prior Authorization Note Provider Intervention Required?: No- Pharmacy completed on your behalf. Rx Plan: [facility] Drug: Aimovig 140MG/ML auto-injectors Cover My Meds [place]: [id number] Determination: Approved Prior Authorization/Case #: [id number] Prior Authorization Expiration: 04/02/24 Time to PA Submission in CMM: 15 min Time to PA Determination in CMM: Same day Additional Information: PLEASE NOTE: Pt will need follow up office visit to review/document efficacy and tolerability of treatment before prior auth expiration. Please ensure a future follow up appt is scheduled with your patient. This will ensure no interruption in patient's ability to obtain medication refills. Prescriptions will now be processed through [facility] for determination of next steps. For questions relating to this submission, please contact [facility] at [phone] documented in this encounter [facility] 03-08-2023 History of Presen t illness Narrative Images from the original note were not included. [facility] Neurologic [place] Follow-up Visit Follow-up note March 08, 2023 HPI: Ms. Grant presents today for a follow-up visit. Per her previous visit on 06/19/22: G25.81 RLS (restless legs syndrome) (primary encounter diagnosis) Comment: Pt currently taking Mirapex 0.5mg 1 tablet at bedtime and 1/2 tablet in AM as well as Lyrica 125mg QHS with goal of weaning off Mirapex. She reports symptoms after taking evening dose of Mirapex as well as occasional tingling in her legs in the rfid specialist. She would like to further attempt to wean down Mirapex and at this time will discontinue AM dose of Mirapex and instead begin low dose of Lyrica 25mg in AM. Note, she experienced SE when taking increased dose of Lyrica in AM (150mg). She will notify the office if symptoms worsen after stopping AM Mirapex at which time can further increase AM dose of Lyrica or consider adding afternoon dose pending timing of increased symptoms. R51.9 Intractable episodic headache, unspecified headache type Comment: Currently following with headache clinic. Remains on Aimovig and Imitrex. Keep follow up as scheduled. States every other night or every 2nd night will take her medication and within an hour her legs will bother her. If sitting she will end up getting up and walking. If at home and on the couch she is watching tv she will have to get up to walk. Sx begin around 8pm but resolve after a couple hours. Usually improved by 10:30-11:30pm. Taking medication (Mirapex and Lyrica) at 6:30-7pm. Taking 1/2 Mirapex in AM around 7:30-8am. No SE with Lyrica. Possibly some AM fogginess. Sx rarely wake her up overnight. Sometimes early in the morning can have a waking up feeling in her legs. Sometimes when her legs bother her her arms will also bother her. She did not stop AM mirapex after last visit. Sx have not worsening since May. Was having headaches every morning for a few weeks. Had injection last week and has not had a headache since that time. Taking Imitrex. Only takes if headache is severe. Takes 1/2 tablet. Still following with Dr. Penaloza. Denies new neurological symptoms. PAST MEDICAL HISTORY Diagnosis Date Disorder of bone and cartilage, unspecified Mixed hyperlipidemia Hyperlipidemia Moderate dysplasia of cervix 1997 ? [facility] E[facility] 3 Osteoarthrosis, unspecified whether generalized or localized, other specified sites Osteoarthritis PAST SURGICAL HISTORY Procedure Laterality Date BREAST BIOPSY NEEDLE RIGHT COLONOSCOPY FLX DX W/COLLJ SPEC WHEN PFRMD ColonoscopyWITH POLYPECTOMY CONIZATION CERVIX W/WO D&C RPR ELTRD EXC 1997 LEEP-Cervix Done for CIN3; cervicitis only was found LIG/TRNSXJ FLP TUBE ABDL/VAG APPR UNI/BI Tubal ligation Current Outpatient Medications on File Prior to Visit Medication Sig erenumab-aooe (AIMOVIG AUTOINJECTOR) 140 mg/mL auto-injector Inject 1 mL subcutaneously once every month. Do not shake. SUMAtriptan (IMITREX) 100 mg tablet Take 50 mg to 100 mg at migraine onset. May repeat once in 2 hours if needed. pregabalin (LYRICA) 100 mg capsule Take 1 capsule by mouth daily at bedtime for 90 days. pregabalin (LYRICA) 25 mg capsule Take 1 capsule by mouth twice daily for 90 days. pramipexole (MIRAPEX) 0.5 mg tablet PRN lisinopril (ZESTRIL, PRINIVIL) 5 mg tablet Take 5 mg by mouth once daily. calcium carbonate/vitamin d3(CALCIUM 600 + D(3) 600 MG (1,500)-200 UNIT TAB) Take one(1) tablet twice daily. ZETIA 10 MG TAB Take by mouth. THERAPEUTIC MULTIVITAMIN ORAL TAB Take one(1) tablet daily. OTC NUTRITIONAL SUPPLEMENT calcium 600 mg qd No current facility-administered medications on file prior to visit. Social History Tobacco Use Smoking status: Never Smokeless tobacco: Never Vaping Use Vaping Use: Never used Substance Use Topics Alcohol use: Yes Comment: rarely 1 per month Drug use: No ALLERGIES Allergen Reactions Atorvastatin Other: See Comments Pravastatin Other: See Comments Seasonal [Other] nasal congestion, drainage Review of Systems: Cardiopulmonary: denies chest pain, palpitations Respiratory: denies shortness of breath Musculoskeletal: Denies + weakness (left arm- chronic), + joint ache/pain Back/spine: denies low back, mid back, or cervical pains Neuro: denies tremors, loss of feeling, dizziness, seizure, paresthesia, facial paresthesia, facial weakness, difficulty in speech, slurring of words, dysarthria, dysphagia, + headache, vision changes Physical Exam: 03/08/23 0935 BP: 118/70 Pulse: 64 Resp: 16 SpO2: 95% Weight: 71.6 kg (157 lb 12.8 oz) Patient is alert and in no distress. Dress is appropriate. Mood is appropriate Breathing appears regular and unstressed Neurologic examination: Cognitively intact. No deficits. No formal MMSE performed. CN: Pupils equal and reactive to light, extraocular movements intact with no nystagmus, face is symmetric with no facial droop, hearing intact bilaterally, symmetric evaluation of the soft palate, tongue is midline with no deviation, shoulder shrug is symmetric. Motor exam shows 5/5 strength symmetric through the upper and lower extremities in all groups tested. Sensory intact to light touch and temperature in all extremities. Vibratory sensation is intact and symmetric all extremities. Deep tendon reflexes are symmetric at the biceps, brachioradialis, triceps, patella, and achilles bilaterally. Coordination: No dysmetria on finger to nose. No tremors noted. No drift seen. Gait normal in stance and pattern. Labs/studies: MRI Report MRI BRAIN WO IVCON Exam End: 12/28/2021 4:31 PM (Final result) Narrative: * * *Final Report* * * DATE OF EXAM: Dec 28 2021 4:31PM [facility] 0294 - MRI BRAIN WO IVCON / PROCEDURE REASON: Chronic mixed headache syndrome * * * * Physician Interpretation * * * * RESULT: COMPARISONS: None. HISTORY: Chronic mixed headache syndrome. TECHNIQUE: MRI brain without contrast. MQ: [id number]. RESULT: MRI BRAIN: Acute abnormality: None. Nonspecific patchy and punctate white matter T2 hyperintense foci are identified which are most consistent with microvascular ischemia. Extremely unlikely differential that may be excluded clinically would be of migraines versus vasculitis versus demyelinating disease. Age expected unremarkable remaining sulci, gyri, ventricles, CSF spaces and brain. No acute intracranial abnormality is noted. No acute infarct/hemorrhage, mass effect or collections. Normal bones and soft tissues. Impression: IMPRESSION: Age-appropriate changes without acute intracranial abnormality. Transcribed Using Voice Recognition Transcribe Date/Time: Dec 28 2021 4:36P Dictated by: TAMELA BARTH MD This examination was interpreted and the report reviewed and electronically signed by: TAMELA BARTH MD on Dec 28 2021 4:38PM EST Assessment/Plan: G25.81 RLS (restless legs syndrome) (primary encounter diagnosis) Comment: Currently taking Mirapex 0.5mg 1 tablet at bedtime and 1/2 tablet in AM as well as Lyrica 125mg QHS with goal of weaning off Mirapex. At time of last OV goal was to DC AM dose of Mirapex and instead start 25mg Lyrica in AM, however, she did not make medication change. Today she reports some worsening of symptoms around 8PM with resolution before going to bed at 11PM. Discussed options regarding medications including adding dose of Lyrica in early evening or splitting PM Lyrica so that half dose is taken earlier in evening as well as discontinuing AM Mirapex dose and starting possible AM Lyrica. Of note, she has had SE of AM grogginess with 150mg dose of Lyrica in the past. At this time will add 25mg Lyrica earlier in evening (4PM). If tolerating medication and symptoms have improved will then DC AM Mirapex. If sx return may further adjust Lyrica dose as tolerated. She will contact her PCP to have recent renal panel faxed to the office. R51.9 Intractable episodic headache, unspecified headache type Comment: Currently taking Aimovig and Imitrex as prescribed by headache clinic. Continue follow up with Dr. Penaloza as previously scheduled. Mirna Baum APRN.BRITTNEY I spent a total of 23 minutes on the date of the service which included preparing to see the patient, [id number] patient care, completing clinical documentation, obtaining and/or reviewing separately obtained history, performing a medically appropriate examination, counseling and educating the patient/family/caregiver, and ordering medications, tests, or procedures. documented in this encounter [facility] 02-20-2023 Miscellaneous Notes Pharmacist Refill Authorization Review Name: Baldo Grant Date: 02/20/2023 Time: 11:23 AM Refill authorization request(s) received and reviewed under effective consult agreement. Upon review, did confirm that an active patient-provider relationship exists and that the prescriber is a participating physician under the consult agreement. Last office visit in this department: 05/18/2022 Babatunde Penaloza MD Last [facility] health visit in this department: Visit date not found Next appointment in this department: Visit date not found The medication(s) fall under the following categories: Category 3: Medication(s) does not qualify for pharmacist renewal due to medication excluded from collaborative practice agreement. Renewal request sent to provider for review. Requested Prescriptions Pending Prescriptions Disp Refills erenumab-aooe (AIMOVIG AUTOINJECTOR) 140 mg/mL auto-injector 1 mL 11 Sig: Inject 1 mL subcutaneously once every month. Do not shake. Number of refills approved in this encounter: 0 Number of refills forwarded to provider for review: 1 Number of refills denied in this encounter: 0 Indiana Rothman RPh documented in this encounter [facility] 01-24-2023 Miscellaneous Notes Physician: Tremaine Call from patient requesting refill. Please E-Scribe Last office visit 11/23/22 with [place] virtual Next office visit Not scheduled. Requested Prescriptions Pending Prescriptions Disp Refills SUMAtriptan (IMITREX) 100 mg tablet 10 tablet 6 Sig: Take 1 tablet by mouth as needed (Migraine). Pharmacy Name: [facility] documented in this encounter [facility] 01-16-2023 Miscellaneous Notes January 17, 2023 PID: [id number] Baldo Grant [address] [place] [id number] Dear Ms. Grant, We are pleased to inform you that the results of your recent breast imaging exam on 01/15/2023 are normal. Early detection of cancer is very important. We also understand recommendations regarding breast cancer screening are controversial. Please discuss with your primary care provider which strategy is best for you and whether a mammogram is right for you. Your imaging studies and report will be kept on file at [facility] as part of your permanent medical record and are available for your continuing care. Thank you for allowing us to help in meeting your health care needs. Sincerely, Dr. Michael Interpreting Radiologist (Normal over 40) documented in this encounter [facility] 01-15-2023 History of Presen t illness Narrative Radiology Service Progress Note PATIENT NAME: Baldo Grant DATE OF SERVICE: January 15, 2023 TIME: 10:23 AM PATIENT IDENTITY VERIFICATION COMPLETED USING TWO (2) IDENTIFIERS: Name and Date of confirmed by patient verbally. FALL SCREENING: Has the patient had 2 falls in the last year or 1 fall with injury or currently using an Ambulatory Assistive Device (Walker, Cane, Wheelchair, Crutches, etc.)? No PATIENT GENDER DATA: Female. status: : No status: NO. PATIENT RELEVANT IMPLANT DATA REVIEWED: Not Applicable RADIOLOGY DEPARTMENT: Mammography PERIPHERAL IV DATA: Not applicable SIGNED BY: RT Blake(R) January 15, 2023 10:23 AM documented in this encounter [facility] 12-18-2022 Miscellaneous Notes TE with pt made and notified. Refills sent in by KD and pt made appt for February before next refills. Anne Ashford LPN PDMP website checked and validated. All prescriptions have been APPROPRIATELY filled. No suspicious activity was identified. December 18, 2022 Mirna Baum APRN.PHOTO FINISH PHOTOGRAPHER [facility] 06-16-22 with [facility] NOV no office visit scheduled. Refill 06-16-22 with qty: 30 and 2 refills Anne Ashford LPN [facility] Assessment/Plan Assessment/Plan: G25.81 RLS (restless legs syndrome) (primary encounter diagnosis) Comment: Pt currently taking Mirapex 0.5mg 1 tablet at bedtime and 1/2 tablet in AM as well as Lyrica 125mg QHS with goal of weaning off Mirapex. She reports symptoms after taking evening dose of Mirapex as well as occasional tingling in her legs in the rfid specialist. She would like to further attempt to wean down Mirapex and at this time will discontinue AM dose of Mirapex and instead begin low dose of Lyrica 25mg in AM. Note, she experienced SE when taking increased dose of Lyrica in AM (150mg). She will notify the office if symptoms worsen after stopping AM Mirapex at which time can further increase AM dose of Lyrica or consider adding afternoon dose pending timing of increased symptoms. R51.9 Intractable episodic headache, unspecified headache type Comment: Currently following with headache clinic. Remains on Aimovig and Imitrex. Keep follow up as scheduled. Mirna Baum APRN.PHOTO FINISH PHOTOGRAPHER documented in this encounter [facility] 11-23-2022 History of Presen t illness Narrative DISTANCE HEALTH VISIT This is a virtual visit using HIPAA compliant video platform. All issues as below were discussed and addressed but no physical exam was performed unless allowed by visual confirmation. If it was felt that the patient should be evaluated in clinic then they were directed there. Patient and/or parent(s) verbally consented to visit. [facility] Neurological [place] Follow up visit History of Present Illness: Ms. Grant is a 82 year old female following up for headaches. I last saw her on 05/18/2022. Briefly, she has a history of migraines. At her last visit she was doing reasonably well on Aimovig so I stayed the course. Patient reports she is doing remarkably well. She is previously averaging 10-12 monthly headache days but has had only 4 total migraines since see me in April. Each episode involved 2 migraines occurring on consecutive days and was in the setting of stress. She takes Imitrex 50 mg (1/2 of the 100mg tab) which consistently works very well as an abortive. She denies any side effects to Aimovig. She overall is very happy with her headache control and has no other complaints at this time. Current prophylactics: Aimovig 140mg monthly, Lyrica (for RLS), lisinopril (for HTN) Prior prophylactics: Amitriptyline, Topamax, Depakote, propranolol, gabapentin Current abortives: Imitrex 50mg Prior abortives: OTCs, indomethacin The patient's prior records were reviewed including and lab testing, imaging, and procedures done since their last visit with me. Review of symptoms including constitutional, eyes, ENT, neck, respiratory, cardiovascular, GI, , musculoskeletal, hematologic, oncologic, endocrine, and psychiatric categories is unchanged. No new details in the family history or social history were offered by the patient. Vital Signs: LMP 10/29/1996 IMPRESSION: Migraines without aura, doing very well on Aimovig 140 mg monthly. We will stay the course. Imitrex works well as an abortive. I will see her back in 6 months or earlier if needed. All questions were answered. PLAN/RECOMMENDATIONS: Continue Aimovig 140mg monthly Continue Imitrex 50mg PRN migraine Follow up in 6 months The duration of this appointment visit was 20 minutes of utgu-xl-arej time with the patient. At least 50% of this time was spent in counseling, explanation of diagnosis, planning of further management, and coordination of care. Portions of this note have been composed using voice recognition and may contain door captain errors Babatunde Penaloza M.D. [facility] Associate Staff Department of Neurology Referring provider: Babatunde Penaloza [address] [facility] [address] Primary care provider: Mary Azar [address] [place] [id number] documented in this encounter [facility] 10-09-2022 Miscellaneous Notes Patient notified So looking at her med history when I went to send the prescription, it pulled in she was given bactrim for 5 days on Sunday. That will cover her UTI, she should finish that prescription. Indiana Auguste MD Patient would like rx to [facility] in [place] ----- Message from Indiana Auguste MD sent at 10/09/2022 10:20 AM EST ----- Let her know + urine culture. Get pharmacy preference and I will send in rx. Indiana Auguste MD documented in this encounter [facility] 10-04-2022 Miscellaneous Notes Addended by: INDIANA AUGUSTE on: 10/04/2022 02:47 PM Modules accepted: Orders Addended by: JANNET WELLS MA on: 10/04/2022 02:10 PM Modules accepted: Orders documented in this encounter [facility] 10-04-2022 Instructions Jannet Wells Ma - 10/04/2022 1:36 PM EST BONE MINERAL DENSITY PATIENT INSTRUCTIONS Bone mineral density testing measures the amount of calcium in certain parts of your bones. This information determines how strong your bones are. The test is used to detect osteoporosis, a disease in which the bone's mineral content and density are low, increasing a person's risk of fractures. The lumbar spine (lower back) and the hip are the skeletal sites usually examined. For the test, remember that: 1. You cannot take this test if you are . 2. Eat a normal diet on the day of the test. 3. Take your medications as you normally would. 4. DO NOT take calcium supplements (such as Tums) for 24 hours before the test. 5. On the day of the test, leave valuables (jewelry or credit cards) at home. 6. The test should be performed prior to oral, rectal or IV contrast studies, or at least 7 days after any of these studies. For the test, you may be asked to wear a hospital gown. You will lie on your back, on a padded table, in a comfortable position. Generally, you can resume your usual activities immediately. documented in this encounter [facility] 10-04-2022 History of Presen t illness Narrative José Miguel is a 82 year old who presents for an annual gynecologic exam with complaints, pruritis in groin area and under breasts. . Using nystatin powder but still comes and goes. Also feels like she might be starting a UTI Postmenopausal: yes HRT use: No. Last Pap: 02/08/2011 normal HPV: 09/29/2005 negative History of abnormal pap: No Last mammogram: 2020 normal History of abnormal mammogram: No Sexually active: Yes OB History T0 L4 SAB0 IAB0 Ectopic0 Multiple0 Live Births0 Supplier Manager History LMP: 10/29/1996, Postmenopausal Age at Menarche: Age at First : Age at Menopause: Supplier Manager History Comments: Sexual Activity: Yes; Male Contraception: Surgical, Tubal Ligation PAST MEDICAL HISTORY Diagnosis Date Disorder of bone and cartilage, unspecified Mixed hyperlipidemia Hyperlipidemia Moderate dysplasia of cervix 1997 ? [facility] 3 Osteoarthrosis, unspecified whether generalized or localized, other specified sites Osteoarthritis PAST SURGICAL HISTORY Procedure Laterality Date BREAST BIOPSY NEEDLE RIGHT COLONOSCOPY FLX DX W/COLLJ SPEC WHEN PFRMD ColonoscopyWITH POLYPECTOMY CONIZATION CERVIX W/WO D&C RPR ELTRD EXC 1997 LEEP-Cervix Done for CIN3; cervicitis only was found LIG/TRNSXJ FLP TUBE ABDL/VAG APPR UNI/BI Tubal ligation FAMILY HISTORY Problem Relation Age of Onset Cancer Maternal Grandmother uterine Diabetes Father Heart Father Hypertension Father Hypertension Mother Colon Cancer Brother Cancer Sister Lung SOCIAL HISTORY Social History Tobacco Use Smoking status: Never Smokeless tobacco: Never Vaping Use Vaping Use: Never used Substance Use Topics Alcohol use: Yes Comment: rarely 1 per month Drug use: No REVIEW OF SYSTEMS Abdomen: No abdominal pain, nausea, vomiting, diarrhea, or constipation. No bloating, early satiety, indigestion, or increased flatulence. Bladder: No dysuria, gross hematuria, urinary frequency, urinary urgency, or incontinence Breast: No breast lumps, nipple d/c, overlying skin changes, redness or skin retraction Allergies and current medication updated:Yes EXAM: BP 114/68 Ht 5' 1 (1.55m) Wt 160 lb (72.6kg) LMP 10/29/1996 BMI 30.25 kg/(m^2). GENERAL: pleasant, female in no apparent distress HEENT: Normocephalic, atraumatic, mucus membranes moist, and no lesions NECK: Supple, full range of motion, no adenopathy, and thyroid normal DERMATOLOGY: Normal, without lesions, non-icteric, and non-hirsute BREAST: soft, non-tender, symmetric, no dominant mass, normal nipple-areolar complex, no lymphadenopathy, and no nipple discharge CHEST: Normal inspiratory effort ABDOMEN: soft, non-tender, and no masses PELVIC: external genitalia normal, normal Bartholin's glands, urethra, Grano's glands, no vulvar lesions, no cervical lesions, physiologic discharge present, normal appearing perineal body and perianal region, cystocele 2nd degree, rectocele 1st degree BIMANUAL: uterus normal size, shape and consistency, no adnexal masses, and non-tender RECTOVAGINAL: deferred. NEURO: alert and oriented x3,exam grossly non-focal EXTREMITIES: normal ASSESSMENT/PLAN: 1) Health maintenance: Pap/HPV up to date. Mammogram ordered 2) Follow up one year or sooner as needed intertriginous yeast - recommend Zeasorb and d/w her symptomatic measures Indiana Auguste MD documented in this encounter [facility] 08-24-2022 Evaluation + Plan note Associated Problem(s): Incomplete uterine prolapse Remains relatively asymptomatic, demonstrates appropriate bladder emptying. Continue to monitor. She will call with additional concerns. Otherwise will be reevaluated in 1 year. [facility] 08-24-2022 Miscellaneous Notes Associated Problem(s): Incomplete uterine prolapse Remains relatively asymptomatic, demonstrates appropriate bladder emptying. Continue to monitor. She will call with additional concerns. Otherwise will be reevaluated in 1 year. documented in this encounter [facility] 08-24-2022 History of Presen t illness Narrative Urogynecology and Reconstructive Pelvic Surgery Return Visit Referring Physician: Lucien Primary Care Provider: Rupali Cline, Assessment/Plan: Problem List Items Addressed This Visit Cystocele, midline - Primary Incomplete uterine prolapse Remains relatively asymptomatic, demonstrates appropriate bladder emptying. Continue to monitor. She will call with additional concerns. Otherwise will be reevaluated in 1 year. History of Presenting Illness: Patient ID: Baldo Grant is a 82 y.o. female with a midline cystocele who was seen 2019, had outside trial of pessary with increased leakage, had normal PVR and elected observation. She presents for a one year reevaluation. She reports doing well. She had COVID a few weeks ago and had some fatigue but has recovered at this time. She cannot recall her last urinary tract infection. Her prolapse comes and goes and overall is not bothersome. She feels that she is emptying her bladder well. She has no vaginal bleeding. Her past medical/surgical/family/social histories are reviewed today and any changes are noted in the chart. Outpatient Medications Marked as Taking for the 08/24/22 encounter (Office Visit) with Pavan James MD Medication Sig Dispense Refill BIOTIN ORAL Take by mouth daily . calcium carbonate (OS-CHRIS) 600 mg calcium (1,500 mg) tablet Take 600 mg by mouth daily With D3 . ezetimibe (ZETIA) 10 mg tablet Take 10 mg by mouth daily . fremanezumab-vfrm (AJOVY SYRINGE SUBQ) Inject under the skin every 30 (thirty) days . multivitamin (THERAGRAN) per tablet Take 1 tablet by mouth daily Vitafusion brand . pramipexole (MIRAPEX) 0.5 MG tablet Take 1 (one) tablet (0.5 mg total) by mouth daily Takes one and a half pill daily . pregabalin (LYRICA) 100 MG capsule Take 1 (one) capsule (100 mg total) by mouth daily Taking 125 mg once day . SUMAtriptan (IMITREX) 100 MG tablet Take 100 mg by mouth as needed 1/2 tablet as needed for cluster headache . Allergies: Patient has no known allergies. Physical Exam: Constitutional: Alert, well-appearing, not in distress Vital signs: Blood pressure 138/79, pulse 86, temperature 98.3 F (36.8 C), temperature source Temporal, resp. rate 17. Abdomen: Soft, non-tender, non-distended Genitourinary: External genitalia: Mild atrophy, no lesions Speculum exam: Stable stage II cystocele, PVR ultrasound: 10 cc, no pelvic masses, no pain, small mobile uterus I personally spent 22 minutes on this encounter today reviewing the chart, examining the patient and discussing next steps with the patient and writing notes. THIS NOTE WAS GENERATED WITH VOICE RECOGNITION SOFTWARE AND MAY CONTAIN ERRORS. SIGNED BUT NOT EDITED TO EXPEDITE. documented in this encounter [facility] 08-21-2022 Miscellaneous Notes Sent [employer]K message to José Miguel to assist in rescheduling appointment. Thank you, Dionna Bearden documented in this encounter [facility] 06-30-2022 Miscellaneous Notes From office visit 06-16-22 Assessment/Plan: G25.81 RLS (restless legs syndrome) (primary encounter diagnosis) Comment: Pt currently taking Mirapex 0.5mg 1 tablet at bedtime and 1/2 tablet in AM as well as Lyrica 125mg QHS with goal of weaning off Mirapex. She reports symptoms after taking evening dose of Mirapex as well as occasional tingling in her legs in the rfid specialist. She would like to further attempt to wean down Mirapex and at this time will discontinue AM dose of Mirapex and instead begin low dose of Lyrica 25mg in AM. Note, she experienced SE when taking increased dose of Lyrica in AM (150mg). She will notify the office if symptoms worsen after stopping AM Mirapex at which time can further increase AM dose of Lyrica or consider adding afternoon dose pending timing of increased symptoms. Valid prescription at the pharmacy with refills available. Order refused and forwarded to Mirna Baum APRN. PHOTO FINISH PHOTOGRAPHER. Mariana Simons RN June 30, 2022 9:20 AM documented in this encounter [facility] 06-16-2022 History of Presen t illness Narrative Images from the original note were not included. [facility] Neurologic [facility] Follow-up Visit Follow-up note June 16, 2022 HPI: Ms. Grant presents today for a follow-up visit. Per her previous visit on 01/19/22: G25.81 RLS (restless legs syndrome) (primary encounter diagnosis) Comment: Patient previously seen for RLS. Was taking Mirapex 1.0mg QHS as well as 0.5mg QAM. Goal is to wean off Mirapex and therefore Lyrica 150mg was started QHS. Pt reports that when taking medications symptoms are well managed. Therefore, will attempt to decrease Mirapex dose at this time. Will have patient decrease dose to 1 1/2 tablets at bedtime (to total 0.75mg). If tolerating well and no concerns can then decrease AM dose to 1/2 tablet after one week. She is not currently taking AM dose of Lyrica and discussed that if symptoms worsen during the daytime, can consider starting low dose of Lyrica in AM. She will contact the office if any concerns after decreasing medication or if she would like to increase Lyrica dose. R51.9 Intractable episodic headache, unspecified headache type Comment: Consult previously placed to headache clinic. Patient currently on Aimovig as headache preventative. Continues to use Imitrex prn. Continue to follow with headache clinic as previously scheduled. When taking her medication at night she will take it at 5-7pm. Takes 125mg Lyrica. When taking 150mg PM and in AM she felt out of it. Has also been taking the Mirapex. She did decrease the Mirapex dose as discussed at her last appointment. Now only taking one at night and a half in the morning. States symptoms will happen after taking the Mirapex. If not taking her evening medications and she forgets about them she has more severe symptoms. No symptoms during the day. Only in the evening and at night. Sometimes early in the morning she will have a tingling in her legs; feels like they fell asleep and are waking up. Not every night. Following with the headache clinic. Headaches can come and go. Usually happen early in the morning; 4:30-6am. Per headache clinic on 05/18/22: IMPRESSION: Migraines without aura-mildly improved on Aimovig but has only had 2 doses so far. I favor staying the course. Continue Imitrex as needed. Patient asked me to prescribe the Imitrex as she was previously getting it from her PCP. I am happy to do so. I encouraged her to continue following up with her interface control officer for her sun sensitivity. I will see her back in 6 months or earlier if needed. If she needs a repeat nerve block she can contact us. All questions were answered. PLAN/RECOMMENDATIONS: Continue Aimovig Continue Imitrex as needed Contact me if a repeat nerve block needed Not interested in workup for sleep apnea; claustrophobic and cannot complete test. Snores a little. PAST MEDICAL HISTORY Diagnosis Date Disorder of bone and cartilage, unspecified Mixed hyperlipidemia Hyperlipidemia Moderate dysplasia of cervix 1997 ? [facility] ELE[facility] 3 Osteoarthrosis, unspecified whether generalized or localized, other specified sites Osteoarthritis PAST SURGICAL HISTORY Procedure Laterality Date BREAST BIOPSY NEEDLE RIGHT COLONOSCOPY FLX DX W/COLLJ SPEC WHEN PFRMD ColonoscopyWITH POLYPECTOMY CONIZATION CERVIX W/WO D&C RPR ELTRD EXC 1997 LEEP-Cervix Done for CIN3; cervicitis only was found LIG/TRNSXJ FLP TUBE ABDL/VAG APPR UNI/BI Tubal ligation Current Outpatient Medications on File Prior to Visit Medication Sig SUMAtriptan (IMITREX) 100 mg tablet Take 1 tablet by mouth as needed (Migraine). pregabalin (LYRICA) 25 mg capsule Take 1 capsule by mouth daily at bedtime for 90 days. pregabalin (LYRICA) 100 mg capsule Take 1 capsule by mouth daily at bedtime for 90 days. erenumab-aooe (AIMOVIG AUTOINJECTOR) 140 mg/mL auto-injector Inject 1 mL subcutaneously once every month. Do not shake. aspirin, enteric coated (ASPIRIN, ENTERIC COATED) 81 mg EC tablet Take 81 mg by mouth once daily. pramipexole (MIRAPEX) 0.5 mg tablet PRN lisinopril (ZESTRIL, PRINIVIL) 5 mg tablet Take 5 mg by mouth once daily. calcium carbonate/vitamin d3(CALCIUM 600 + D(3) 600 MG (1,500)-200 UNIT TAB) Take one(1) tablet twice daily. ZETIA 10 MG TAB Take by mouth. THERAPEUTIC MULTIVITAMIN ORAL TAB Take one(1) tablet daily. OTC NUTRITIONAL SUPPLEMENT calcium 600 mg qd No current facility-administered medications on file prior to visit. Social History Tobacco Use Smoking status: Never Smokeless tobacco: Never Vaping Use Vaping Use: Never used Substance Use Topics Alcohol use: Yes Comment: rarely 1 per month Drug use: No ALLERGIES Allergen Reactions Atorvastatin Other: See Comments Pravastatin Other: See Comments Seasonal [Other] nasal congestion, drainage Review of Systems: Cardiopulmonary: denies chest pain, palpitations, or skipped heart beats Respiratory: denies shortness of breath GI/: denies recent nausea, vomiting, diarrhea, + constipation, incontinence Musculoskeletal: Denies + weakness (left arm- chronic), muscle atrophy, + joint ache/pain (knees) Back/spine: denies low back, mid back, or cervical pains Neuro: denies tremors, loss of feeling, dizziness, seizure, blackout, paresthesia, facial paresthesia, facial weakness, difficulty in speech, slurring of words, dysarthria, dysphagia, memory loss, + headache, vision changes, loss of hearing Physical Exam: There were no vitals filed for this visit. Patient is alert and in no distress. Dress is appropriate. Mood is appropriate Heart is regular rate and rhythm with no murmur or bruit auscultated Breathing appears regular and unstressed Neurologic examination: Cognitively intact. No deficits. No formal MMSE performed. CN: Pupils equal and reactive to light, extraocular movements intact with no nystagmus, face is symmetric with no facial droop, facial sensation intact bilaterally to light touch. V1-3, hearing intact bilaterally, symmetric evaluation of the soft palate, tongue is midline with no deviation, shoulder shrug is symmetric. Motor exam shows 5/5 strength symmetric through the upper and lower extremities in all groups tested. Sensory intact to light touch and temperature in all extremities. Vibratory sensation is intact and symmetric all extremities. Deep tendon reflexes are symmetric at the biceps, brachioradialis, triceps, patella, and achilles bilaterally. Coordination: No dysmetria on finger to nose. No tremors noted. No drift seen. Gait normal in stance and pattern. Labs/studies: MRI Report MRI BRAIN WO IVCON Exam End: 12/28/2021 4:31 PM (Final result) Narrative: * * *Final Report* * * DATE OF EXAM: Dec 28 2021 4:31PM HCM [id number] - MRI BRAIN WO IVCON / PROCEDURE REASON: Chronic mixed headache syndrome * * * * Physician Interpretation * * * * RESULT: COMPARISONS: None. HISTORY: Chronic mixed headache syndrome. TECHNIQUE: MRI brain without contrast. MQ: [id number]. RESULT: MRI BRAIN: Acute abnormality: None. Nonspecific patchy and punctate white matter T2 hyperintense foci are identified which are most consistent with microvascular ischemia. Extremely unlikely differential that may be excluded clinically would be of migraines versus vasculitis versus demyelinating disease. Age expected unremarkable remaining sulci, gyri, ventricles, CSF spaces and brain. No acute intracranial abnormality is noted. No acute infarct/hemorrhage, mass effect or collections. Normal bones and soft tissues. Impression: IMPRESSION: Age-appropriate changes without acute intracranial abnormality. Transcribed Using Voice Recognition Transcribe Date/Time: Dec 28 2021 4:36P Dictated by: TAMELA BARTH MD This examination was interpreted and the report reviewed and electronically signed by: TAMELA BARTH MD on Dec 28 2021 4:38PM EST Assessment/Plan: G25.81 RLS (restless legs syndrome) (primary encounter diagnosis) Comment: Pt currently taking Mirapex 0.5mg 1 tablet at bedtime and 1/2 tablet in AM as well as Lyrica 125mg QHS with goal of weaning off Mirapex. She reports symptoms after taking evening dose of Mirapex as well as occasional tingling in her legs in the rfid specialist. She would like to further attempt to wean down Mirapex and at this time will discontinue AM dose of Mirapex and instead begin low dose of Lyrica 25mg in AM. Note, she experienced SE when taking increased dose of Lyrica in AM (150mg). She will notify the office if symptoms worsen after stopping AM Mirapex at which time can further increase AM dose of Lyrica or consider adding afternoon dose pending timing of increased symptoms. R51.9 Intractable episodic headache, unspecified headache type Comment: Currently following with headache clinic. Remains on Aimovig and Imitrex. Keep follow up as scheduled. Mirna Baum APRN.PHOTO FINISH PHOTOGRAPHER I spent a total of 35 minutes on the date of the service which included preparing to see the patient, [id number] patient care, completing clinical documentation, obtaining and/or reviewing separately obtained history, performing a medically appropriate examination, counseling and educating the patient/family/caregiver, and ordering medications, tests, or procedures. documented in this encounter [facility] 05-18-2022 Instructions Babatunde Penaloza MD - 05/18/2022 4:21 PM EDT Continue Aimovig Continue Imitrex as needed Contact me if a repeat nerve block needed Follow up in 6 months documented in this encounter [facility] 05-18-2022 History of Presen t illness Narrative [facility] Neurological [facility] Follow up visit History of Present Illness: Ms. Grant is a 81 year old female presenting for follow-up of headaches. I last saw her on 12/29/2021. Briefly, she has a history of migraines. At her last visit, she was experiencing wearing off of her Ajovy and so I switched her to Aimovig. Patient states that due to insurance issues it took her a while to get on Aimovig so she has only had 2 doses so far. It does seem to be helping mildly so far. She is averaging 10-12 monthly headache days. Imitrex always works as an abortive. She has 100 mg tablets but breaks them in half and finds that 50 mg is sufficient. The occipital nerve block she got at her last visit helped dramatically and she states she is still feeling the benefit. She is not having much nausea with her headaches anymore. Her only side effect from Aimovig is constipation but patient states she gets this anyway of the increase is not significant. Her only other new complaint is increased sensitivity to the sun. She follows with dermatology and gets yearly skin checks. She has no other complaints at this time. Current prophylactics: Aimovig, Lyrica (used for RLS) Prior prophylactics: Topamax, Depakote, amitriptyline, propranolol, gabapentin, Ajovy Current abortives: Imitrex Prior abortives: Various OTCs The patient's prior records were reviewed including and lab testing, imaging, and procedures done since their last visit with me. Review of symptoms including constitutional, eyes, ENT, neck, respiratory, cardiovascular, GI, , musculoskeletal, hematologic, oncologic, endocrine, and psychiatric categories is unchanged. No new details in the family history or social history were offered by the patient. Vital Signs: BP 139/75 (BP Site: Left Arm, BP Position: Sitting, BP Cuff Size: Large Adult) Pulse 79 Ht 154.9 cm (5' 1) Wt 74.8 kg (164 lb 14.4 oz) LMP 10/29/1996 BMI 31.16 kg/m IMPRESSION: Migraines without aura-mildly improved on Aimovig but has only had 2 doses so far. I favor staying the course. Continue Imitrex as needed. Patient asked me to prescribe the Imitrex as she was previously getting it from her PCP. I am happy to do so. I encouraged her to continue following up with her interface control officer for her sun sensitivity. I will see her back in 6 months or earlier if needed. If she needs a repeat nerve block she can contact us. All questions were answered. PLAN/RECOMMENDATIONS: Continue Aimovig Continue Imitrex as needed Contact me if a repeat nerve block needed Follow up in 6 months The duration of this appointment visit was 30 minutes of qadw-du-lgls time with the patient. At least 50% of this time was spent in counseling, explanation of diagnosis, planning of further management, and coordination of care. Portions of this note have been composed using voice recognition and may contain door captain errors Babatunde Penaloza M.D. [facility] Associate Staff Department of Neurology Referring provider: Babatunde Penaloza [address] [place] [id number] Primary care provider: Mary Darren Doe [address] [facility] [address] [place] [address] documented in this encounter [facility] 04-03-2022 Miscellaneous Notes PDMP website checked and validated. All prescriptions have been APPROPRIATELY filled. No suspicious activity was identified. April 03, 2022 Mirna Baum APRN.BRITTNEY The patient was called and she is taking (1) 100 mg and (1) 25 mg of Lyrica. The patient would like an order for both doses. The patient states she is still decreasing the Mirapex. The patient will continue to try to stop taking the Mirapex. Per last visit patient was taking 150mg QHS. If taking this dose will send for 50mg capsules rather than two 25mg capsules. Please confirm. Physician: Mirna Baum CNP Call from patient requesting refill. Please E-Scribe Last OV: 01/19/22 with Mirna Baum CNP Future OV: 05/18/[address] Penaloza Pending Prescriptions Disp Refills PREGABALIN 25 MG CAPSULE 30 capsule 1 Sig: Take 1 capsule by mouth daily at bedtime for 60 days. CECIL Class: C-V LALITHA: No PREGABALIN 100 MG CAPSULE 30 capsule 1 Sig: Take 1 capsule by mouth daily at bedtime for 60 days. CECIL Class: C-V LALITHA: No Pharmacy Name: [facility] Pharmacy Phone #: [phone] Yudi Brown 01/19/22 Assessment/Plan: G25.81 RLS (restless legs syndrome) (primary encounter diagnosis) Comment: Patient previously seen for RLS. Was taking Mirapex 1.0mg QHS as well as 0.5mg QAM. Goal is to wean off Mirapex and therefore Lyrica 150mg was started QHS. Pt reports that when taking medications symptoms are well managed. Therefore, will attempt to decrease Mirapex dose at this time. Will have patient decrease dose to 1 1/2 tablets at bedtime (to total 0.75mg). If tolerating well and no concerns can then decrease AM dose to 1/2 tablet after one week. She is not currently taking AM dose of Lyrica and discussed that if symptoms worsen during the daytime, can consider starting low dose of Lyrica in AM. She will contact the office if any concerns after decreasing medication or if she would like to increase Lyrica dose. R51.9 Intractable episodic headache, unspecified headache type Comment: Consult previously placed to headache clinic. Patient currently on Aimovig as headache preventative. Continues to use Imitrex prn. Continue to follow with headache clinic as previously scheduled. documented in this encounter [facility] 03-31-2022 Miscellaneous Notes Called the patient and scheduled for follow-up appointment. documented in this encounter [facility] 02-06-2022 Miscellaneous Notes Spoke with patient. Feels lightheaded after taking 150mg Lyrica at bedtime. Discussed options and will decrease to 125mg QHS and may further decrease to 100mg QHS if lightheadedness persists. She notes that has since decreased Mirapex dose and RLS well managed. Pt to schedule follow up appt in three months. documented in this encounter [facility] 12-28-2021 Note HNO ID: [id number] Author: RT Rory(R) Service: Radiology Author Type: Technologist Type: Progress Notes Filed: 12/28/2021 4:17 PM Note Text: Radiology Service Progress Note PATIENT NAME: Baldo Grant DATE OF SERVICE: December 28, 2021 TIME: 4:17 PM PATIENT IDENTITY VERIFICATION COMPLETED USING TWO (2) IDENTIFIERS: Name and Date of confirmed by patient verbally. FALL SCREENING: Has the patient had 2 falls in the last year or 1 fall with injury or currently using an Ambulatory Assistive Device (Walker, Cane, Wheelchair, Crutches, etc.)? No PATIENT GENDER DATA: Female. status: : No status: NO. PATIENT RELEVANT IMPLANT DATA REVIEWED: Yes RADIOLOGY DEPARTMENT: MR; Exam(s) Completed: Head: Routine Brain PERIPHERAL IV DATA: Not applicable SIGNED BY: RT Rory(R) December 28, 2021 4:17 PM [facility] 08-17-2021 Miscellaneous Notes Associated Problem(s): Cystocele, midline Stable, with mild bother symptoms and a normal postvoid residual she elects for continued observation. Precautions were reviewed. Return to the office in 1 year or as needed. documented in this encounter [facility] 08-16-2021 History of Presen t illness Narrative Urogynecology and Reconstructive Pelvic Surgery Return Visit Referring Physician: Lucien Primary Care Provider: Rupali Cline DO Assessment/Plan: Problem List Items Addressed This Visit Cystocele, midline Stable, with mild bother symptoms and a normal postvoid residual she elects for continued observation. Precautions were reviewed. Return to the office in 1 year or as needed. History of Presenting Illness: Patient ID: Baldo Grant is a 81 y.o. female with a midline cystocele who was seen 2019, had outside trial of pessary with increased leakage, had normal PVR and elected observation. She reports overall having a very good year. She has no further urinary leakage since discontinuing her pessary, feels a small protrusion but is not bothersome. Has had no vaginal bleeding. She has been coughing a lot as she was diagnosed with bronchitis and feels the prolapse more prominently when she coughs. She has had either 1 or 2 urinary tract infections in the past year treated by her primary care physician. Her past medical/surgical/family/social histories are reviewed today and any changes are noted in the chart. Outpatient Medications Marked as Taking for the 08/17/21 encounter (Office Visit) with Pavan James MD Medication Sig Dispense Refill BIOTIN ORAL Take by mouth daily . calcium carbonate (OS-CHRIS) 600 mg calcium (1,500 mg) tablet Take 600 mg by mouth daily With D3 . ezetimibe (Zetia) 10 mg tablet Take 10 mg by mouth daily . fremanezumab-vfrm (AJOVY SYRINGE SUBQ) Inject under the skin every 30 (thirty) days . multivitamin (multivitamin) per tablet Take 1 tablet by mouth daily Vitafusion brand . pramipexole (MIRAPEX) 0.5 MG tablet Take 0.25 mg by mouth daily . pregabalin (LYRICA) 100 MG capsule Take 100 mg by mouth daily . SUMAtriptan (IMITREX) 100 MG tablet Take 100 mg by mouth as needed 1/2 tablet as needed for cluster headache . Allergies: Patient has no known allergies. Physical Exam: Constitutional: Alert, well-appearing, not in distress Vital signs: Blood pressure (!) 152/81, pulse 90, temperature 98.5 F (36.9 C), temperature source Temporal. Abdomen: Soft, non-tender, non-distended Genitourinary: External genitalia: Mild atrophy, no lesions Speculum exam: Stable stage II cystocele, PVR ultrasound: 0 cc, no pelvic masses, no pain, small mobile uterus I personally spent 22 minutes on this encounter today reviewing the chart, examining the patient and discussing next steps with the patient and writing notes. THIS NOTE WAS GENERATED WITH VOICE RECOGNITION SOFTWARE AND MAY CONTAIN ERRORS. SIGNED BUT NOT EDITED TO EXPEDITE. documented in this encounter [facility] Evaluation note Diagnosis Cystocele, midline [facility] Diagnosis RLS (restless legs syndrome)- Primary Restless legs syndrome (RLS) [facility] RLS (restless legs syndrome) Restless legs syndrome (RLS) [facility] Diagnosis Migraine without aura and without status migrainosus, not intractable- Primary Migraine without aura, without mention of intractable migraine without mention of status migrainosus [facility] Diagnosis RLS (restless legs syndrome)- Primary Restless legs syndrome (RLS) Intractable episodic headache, unspecified headache type documented in this encounter [facility] note* Diagnosis RLS (restless legs syndrome) Restless legs syndrome (RLS) [facility]* Diagnosis RLS (restless legs syndrome) Restless legs syndrome (RLS) [facility]* Diagnosis Cystocele, midline- Primary Incomplete uterine prolapse documented in this encounter [facility] noteNo assessment information availableWSt. Mary[facility] Work Phone: [facility]* Diagnosis Encounter for gynecological examination (general) (routine) without abnormal findings- Primary Encounter for screening mammogram for breast cancer Encounter for screening for osteoporosis Special screening for osteoporosis Vaginal irritation Unspecified noninflammatory disorder of vagina documented in this encounter [facility] note* Diagnosis RLS (restless legs syndrome) Restless legs syndrome (RLS) [facility]* Diagnosis RLS (restless legs syndrome) Restless legs syndrome (RLS) [facility]* Diagnosis Migraine without aura and without status migrainosus, not intractable- Primary Migraine without aura, without mention of intractable migraine without mention of status migrainosus [facility]* Diagnosis RLS (restless legs syndrome) Restless legs syndrome (RLS) [facility]* Diagnosis Pain in right foot- Primary Pain in limb [facility] Diagnosis RLS (restless legs syndrome)- Primary Restless legs syndrome (RLS) Intractable episodic headache, unspecified headache type [facility]* Diagnosis Porokeratosis- Primary Other specified congenital anomaly of skin documented in this encounter [facility] note* Diagnosis RLS (restless legs syndrome) Restless legs syndrome (RLS) [facility]* Diagnosis Pain in right foot Pain in limb [facility]* Diagnosis Encounter for gynecological examination (general) (routine) without abnormal findings Encounter for screening mammogram for breast cancer [facility]* Diagnosis At risk for decreased bone density Other specified conditions influencing health status [facility]* Diagnosis Encounter for screening mammogram for malignant neoplasm of breast Other screening mammogram documented in this encounter [facility] note* Diagnosis RLS (restless legs syndrome)- Primary Restless legs syndrome (RLS) documented in this encounter [facility] note* Diagnosis RLS (restless legs syndrome)- Primary Restless legs syndrome (RLS) documented in this encounter [facility] note* Diagnosis Encounter for routine gynecologic examination in Medicare patient- Primary Encounter for screening mammogram for breast cancer documented in this encounter [facility] note* Diagnosis Urinary urgency- Primary Urgency of urination Urinary frequency documented in this encounter [facility] note* Diagnosis RLS (restless legs syndrome)- Primary Restless legs syndrome (RLS) documented in this encounter [facility] note* Diagnosis Urinary frequency- Primary Urinary urgency Urgency of urination Dysuria documented in this encounter [facility] note* Diagnosis RLS (restless legs syndrome)- Primary Restless legs syndrome (RLS) Insomnia, unspecified type documented in this encounter [facility] note* Diagnosis Encounter for routine gynecologic examination in Medicare patient Encounter for screening mammogram for breast cancer [facility] Diagnosis Migraine without aura and without status migrainosus, not intractable- Primary Migraine without aura, without mention of intractable migraine without mention of status migrainosus [facility] Diagnostic Procedure Only (Routine) - Pending Review Specialty Diagnoses / Procedures Referred By Shannan oconnor Referred To Contact [facility] Diagnoses Encounter for gynecological examination (general) (routine) without abnormal findings Encounter for screening mammogram for breast cancer Procedures DARBY SCREENING W MURTAZA SCREENING DIGITAL BREAST TOMOSYNTHESIS BI SCREENING MAMMOGRAPHY BI 2-VIEW BREAST INC Indiana Solorio MD [address] [place] [address] [facility] [address] [place] [address] Referral ID Status Reason Start Date Expiration Date Visits Requested Visits Authorized [id number] Pending Review Auto-Generat ed Referral 10/04/2022 11/03/2023 1 1 [facility] for referral (narrative)* Diagnostic Procedure Only (Routine) - Pending Review Specialty Diagnoses / Procedures Referred By Contac t Referred To Contact X[facility] IMAGING Diagnoses Pain in right foot Procedures XR FOOT GENERAL 3V AP/LAT/OBL RIGHT RADEX FOOT COMPLETE MINIMUM 3 VIEWS Alessandro Nelson [address] [place] [address] X[facility] Imaging Referral ID Status Reason Start Date Expiration Date Visits Requested Visits Authorized [id number] Pending Review Auto-Generat ed Referral 02/19/2023 03/20/2024 1 1 [facility] for referral (narrative)* Diagnostic Procedure Only (Routine) - Closed Specialty Diagnoses / Procedures Referred By Contac t Referred To Contact XR IMAGING Diagnoses Pain in right foot Procedures XR FOOT GENERAL 3V AP/LAT/OBL RIGHT RADEX FOOT COMPLETE MINIMUM 3 VIEWS Alessandro Nelson [address] [place] [address] [place] [address] Referral ID Status Reason Start Date Expiration Date V isits Requested Visits Authorized [id number] Closed Auto-Generate d Referral 02/19/2023 03/20/2024 1 1 [facility] for referral (narrative)* Diagnostic Procedure Only (Routine) - Closed Specialty Diagnoses / Procedures Referred By Contac t Referred To Contact [facility] Diagnoses Encounter for gynecological examination (general) (routine) without abnormal findings Encounter for screening mammogram for breast cancer Procedures DARBY SCREENING W MURTAZA SCREENING DIGITAL BREAST TOMOSYNTHESIS BI SCREENING MAMMOGRAPHY BI 2-VIEW BREAST INC CAD Indiana Auguste MD [address] [place] [address] [facility] [address] [place] [address] Referral ID Status Reason Start Date Expiration Date V isits Requested Visits Authorized [id number] Closed Auto-Generate d Referral 10/04/2022 11/03/2023 1 1 [facility] for referral (narrative)* Diagnostic Procedure Only (Routine) - Authorized Specialty Diagnoses / Procedures Referred By Shannan t Referred To Contact [facility] Diagnoses Encounter for routine gynecologic examination in Medicare patient Encounter for screening mammogram for breast cancer Procedures DARBY SCREENING W MURTAZA SCREENING DIGITAL BREAST TOMOSYNTHESIS BI SCREENING MAMMOGRAPHY BI 2-VIEW BREAST INC Indiana Solorio MD [address] [place] [address] [facility] [address] [place] [address] Referral ID Status Reason Start Date Expiration Date Visits Requested Visits Authorized [id number] Authorized Auto-Generat ed Referral 07/22/2024 08/21/2025 1 1 [facility] for visit Narrative* Diagnostic Procedure Only (Routine) - Closed Specialty Diagnoses / Procedures Referred By Shannan t Referred To Contact XR IMAGING Diagnoses Pain in right foot Procedures XR FOOT GENERAL 3V AP/LAT/OBL RIGHT RADEX FOOT COMPLETE MINIMUM 3 VIEWS Alessandro Nelson [address] [place] [address] [place] [address] Referral ID Status Reason Start Date Expiration Date V isits Requested Visits Authorized [id number] Closed Auto-Generate d Referral 02/19/2023 03/20/2024 1 1 [facility] for visit Narrative* Diagnostic Procedure Only (Routine) - Closed Specialty Diagnoses / Procedures Referred By Shannan t Referred To Contact [facility] Diagnoses Encounter for gynecological examination (general) (routine) without abnormal findings Encounter for screening mammogram for breast cancer Procedures DARBY SCREENING W MURTAZA SCREENING DIGITAL BREAST TOMOSYNTHESIS BI SCREENING MAMMOGRAPHY BI 2-VIEW BREAST INC Indiana Solorio MD [address] [place] [address] [facility] [address] [place] [address] Referral ID Status Reason Start Date Expiration Date V isits Requested Visits Authorized [id number] Closed Auto-Generate d Referral 10/04/2022 11/03/2023 1 1 [facility] for visit Narrative* Diagnostic Procedure Only (Routine) - Closed Specialty Diagnoses / Procedures Referred By Contac t Referred To Contact XR IMAGING Diagnoses At risk for decreased bone density Procedures DXA-AXIAL SKELETON Indiana Auguste MD [address] [place] [address] [place] [address] Referral ID Status Reason Start Date Expiration Date V isits Requested Visits Authorized [id number] Closed Auto-Generate d Referral 01/21/2024 02/16/2025 1 1 [facility] for visit Narrative* Diagnostic Procedure Only (Routine) - Closed Specialty Diagnoses / Procedures Referred By Contac t Referred To Contact [facility] Diagnoses Encounter for screening mammogram for malignant neoplasm of breast Procedures DARBY SCREENING W MURTAZA SCREENING DIGITAL BREAST TOMOSYNTHESIS BI SCREENING MAMMOGRAPHY BI 2-VIEW BREAST INC CAD Indiana Auguste MD [address] [place] [address] [facility] [address] [place] [address] Referral ID Status Reason Start Date Expiration Date V isits Requested Visits Authorized [id number] Closed Auto-Generate d Referral 01/21/2024 02/16/2025 1 1 [facility] for visit Narrative* Diagnostic Procedure Only (Routine) - Closed Specialty Diagnoses / Procedures Referred By Contac t Referred To Contact [facility] Diagnoses Encounter for routine gynecologic examination in Medicare patient Encounter for screening mammogram for breast cancer Procedures DARBY SCREENING W MURTAZA SCREENING DIGITAL BREAST TOMOSYNTHESIS BI SCREENING MAMMOGRAPHY BI 2-VIEW BREAST INC CAD Indiana Auguste MD [address] [place] [address] Phone: tel: fax: [facility] [address] [place] [address] Referral ID Status Reason Start Date Expiration Date V isits Requested Visits Authorized [id number] Closed Auto-Generate d Referral 07/22/2024 08/21/2025 1 1 [facility] Summary Purpose Family History No Family History Records Found Relationship Condition Age at Onset Recorded Date/T tu father Myocardial infarction Unknown brother Malignant neoplasm of pancreas Unknown sister Malignant neoplasm of lung Unknown Advance Directives No Advanced Directives Records FoundDocuments on File Type Date Recorded Patient Abstract Checker Expl anation Advance Directives and Living Will Advance Directive Response Recorded Date/ Time Living Will Yes June 29 10:21am Power of Dry Ice Maker Yes June 29, 2020 10:21am Reason for Referral Specialty Diagnoses / Procedures Referred By Shannan t [place]erred [place] [address] [place] [address] Referral ID Status Reason Start Date Expiration Date Visits Re quested Visits Authorized [id number] Closed 1 1 Additional Source Comments INFORMATION SOURCE (unrecogn ized section and content) DATE CREATED AUTHOR 04/23/2018 [facility] ([place]) DATE CREATED AUTHOR AUTHOR'S ORGANIZ ATION 08/18/2021 [facility] DATE CREATED AUTHOR AUTHOR'S ORGANIZ ATION 12/29/2021 [facility] DATE CREATED AUTHOR AUTHOR'S ORGANIZ ATION 08/29/2022 [facility] DATE CREATED AUTHOR AUTHOR'S ORGANIZ ATION 09/14/2024 [facility] DATE CREATED AUTHOR AUTHOR'S ORGANIZ ATION 2025 [facility] Care Teams (unrecognized sec tion and content) Attending Pathologist Relationship Specialty Start Date End Date Rupali Cline, DO [address] [place], [place] [address] PCP - General Family Medicine 08/17/20 Attending Pathologist Relationship Specialty Start Date End Date Mary Azar DO PCP - General 11/29/09 Attending Pathologist Relationship Specialty Start Date End Date Mary Azar DO PCP - General 11/29/09 Attending Pathologist Relationship Specialty Start Date End Date Fast Mary A, DO PCP - General 11/29/09 Attending Pathologist Relationship Specialty Start Date End Date Fast Mary A, DO PCP - General 11/29/09 Attending Pathologist Relationship Specialty Start Date End Date Fast, Mary A, DO PCP - General 11/29/09 Attending Pathologist Relationship Specialty Start Date End Date Fast Mary A, DO PCP - General 11/29/09 Attending Pathologist Relationship Specialty Start Date End Date Rupali Cline, DO [address] [place], [place] [id number] PCP - General Family Medicine 08/17/20 Attending Pathologist Relationship Specialty Start Date End Date Rupali Cline, DO [address] [place], [place] [id number] PCP - General Family Medicine 08/17/20 Attending Pathologist Relationship Specialty Start Date End Date Gumaro Azara A, DO PCP - General 11/29/09 Attending Pathologist Relationship Specialty Start Date End Date Fast Mary A, DO PCP - General 11/29/09 Attending Pathologist Relationship Specialty Start Date End Date Fast Mary A, DO PCP - General 11/29/09 Attending Pathologist Relationship Specialty Start Date End Date Fast, Mary A, DO PCP - General 11/29/09 Attending Pathologist Relationship Specialty Start Date End Date Fast, Mary A, DO PCP - General 11/29/09 Attending Pathologist Relationship Specialty Start Date End Date Mary Azar DO PCP - General 11/29/09 Attending Pathologist Relationship Specialty Start Date End Date Mary Azar DO PCP - General 11/29/09 Attending Pathologist Relationship Specialty Start Date End Date Mary Azar DO PCP - General 11/29/09 Attending Pathologist Relationship Specialty Start Date End Date Mary Azar DO PCP - General 11/29/09 Attending Pathologist Relationship Specialty Start Date End Date Mary Azar DO PCP - General 11/29/09 Team Status: Active Member Role Status Dates Dr. Rupali Cline DO Family Provider Active Dr. Rupali Cline DO Primary Care Provider Active Team Status: Inactive Member Role Status Dates Dr. Rupali Cline [facility] Attending Pathologist Relationship Specialty Start Date End Date Mary Azar DO PCP - General 11/29/09 Attending Pathologist Relationship Specialty Start Date End Date Mary Azar DO PCP - General 11/29/09 Attending Pathologist Relationship Specialty Start Date End Date Mary Azar DO PCP - General 11/29/09 Attending Pathologist Relationship Specialty Start Date End Date Mary Azar DO PCP - General 11/29/09 Attending Pathologist Relationship Specialty Start Date End Date Rupali Cline DO [address] [place] [phone] PCP - General Family Medicine 03/17/24 Attending Pathologist Relationship Specialty Start Date End Date Rupali Cline DO [address] [place] [phone] PCP - General Family Medicine 03/17/24 Attending Pathologist Relationship Specialty Start Date End Date Mary Azar DO PCP - General 11/29/09 03/16/24 Rupali Cline [address] [place] [address] PCP - General Family Medicine 03/17/24 Attending Pathologist Relationship Specialty Start Date End Date Rupali Cline DO [address] [place] [phone] PCP - General Family Medicine 03/17/24 Attending Pathologist Relationship Specialty Start Date End Date Rupali Cline DO [address] [place] [phone] PCP - General Family Medicine 03/17/24 Attending Pathologist Relationship Specialty Start Date End Date SonRupali tai [address] [place] [phone] PCP - General Family Medicine 03/17/24 Attending Pathologist Relationship Specialty Start Date End Date SonRupali baileyDO [address] [place] [address] PCP - General Family Medicine 03/17/24 Attending Pathologist Relationship Specialty Start Date End Date Rupali Cline DO [address] [place] [address] PCP - General Family Medicine 03/17/24 Attending Pathologist Relationship Specialty Start Date End Date Rupali Cline DO [address] [place] [address] PCP - General Family Medicine 03/17/24 Attending Pathologist Relationship Specialty Start Date End Date Rupali Cline DO [address] [place] [address] PCP - General Family Medicine 03/17/24 Attending Pathologist Relationship Specialty Start Date End Date Rupali Cline DO [address] [place] [phone] PCP - General Family Medicine 03/17/24 Attending Pathologist Relationship Specialty Start Date End Date Rupali Cline DO [address] [place] [phone] PCP - General Family Medicine 03/17/24 Source Comments (unrecognize d section and content) In the event this informatio n is protected by the Federal Confidentiality of Alcohol and Drug Abuse Patient Records regulations: The Federal rules restrict any use of the information to criminally investigate or prosecute any alcohol or drug abuse patient.[facility] the event this information is protected by the Federal Confidentiality of Alcohol and Drug Abuse Patient Records regulations: The Federal rules restrict any use of the information to criminally investigate or prosecute any alcohol or drug abuse patient.[facility] the event this information is protected by the Federal Confidentiality of Alcohol and Drug Abuse Patient Records regulations: The Federal rules restrict any use of the information to criminally investigate or prosecute any alcohol or drug abuse patient.[facility] the event this information is protected by the Federal Confidentiality of Alcohol and Drug Abuse Patient Records regulations: The Federal rules restrict any use of the information to criminally investigate or prosecute any alcohol or drug abuse patient.[facility] the event this information is protected by the Federal Confidentiality of Alcohol and Drug Abuse Patient Records regulations: The Federal rules restrict any use of the information to criminally investigate or prosecute any alcohol or drug abuse patient.[facility] the event this information is protected by the Federal Confidentiality of Alcohol and Drug Abuse Patient Records regulations: The Federal rules restrict any use of the information to criminally investigate or prosecute any alcohol or drug abuse patient.[facility] the event this information is protected by the Federal Confidentiality of Alcohol and Drug Abuse Patient Records regulations: The Federal rules restrict any use of the information to criminally investigate or prosecute any alcohol or drug abuse patient.[facility] the event this information is protected by the Federal Confidentiality of Alcohol and Drug Abuse Patient Records regulations: The Federal rules restrict any use of the information to criminally investigate or prosecute any alcohol or drug abuse patient.[facility] the event this information is protected by the Federal Confidentiality of Alcohol and Drug Abuse Patient Records regulations: The Federal rules restrict any use of the information to criminally investigate or prosecute any alcohol or drug abuse patient.[facility] the event this information is protected by the Federal Confidentiality of Alcohol and Drug Abuse Patient Records regulations: The Federal rules restrict any use of the information to criminally investigate or prosecute any alcohol or drug abuse patient.[facility] the event this information is protected by the Federal Confidentiality of Alcohol and Drug Abuse Patient Records regulations: The Federal rules restrict any use of the information to criminally investigate or prosecute any alcohol or drug abuse patient.[facility] the event this information is protected by the Federal Confidentiality of Alcohol and Drug Abuse Patient Records regulations: The Federal rules restrict any use of the information to criminally investigate or prosecute any alcohol or drug abuse patient.[facility] the event this information is protected by the Federal Confidentiality of Alcohol and Drug Abuse Patient Records regulations: The Federal rules restrict any use of the information to criminally investigate or prosecute any alcohol or drug abuse patient.[facility] the event this information is protected by the Federal Confidentiality of Alcohol and Drug Abuse Patient Records regulations: The Federal rules restrict any use of the information to criminally investigate or prosecute any alcohol or drug abuse patient.[facility] the event this information is protected by the Federal Confidentiality of Alcohol and Drug Abuse Patient Records regulations: The Federal rules restrict any use of the information to criminally investigate or prosecute any alcohol or drug abuse patient.[facility] the event this information is protected by the Federal Confidentiality of Alcohol and Drug Abuse Patient Records regulations: The Federal rules restrict any use of the information to criminally investigate or prosecute any alcohol or drug abuse patient.[facility] ClinicIn the event this information is protected by the Federal Confidentiality of Alcohol and Drug Abuse Patient Records regulations: The Federal rules restrict any use of the information to criminally investigate or prosecute any alcohol or drug abuse patient.[facility]In the event this information is protected by the Federal Confidentiality of Alcohol and Drug Abuse Patient Records regulations: The Federal rules restrict any use of the information to criminally investigate or prosecute any alcohol or drug abuse patient.[facility]In the event this information is protected by the Federal Confidentiality of Alcohol and Drug Abuse Patient Records regulations: The Federal rules restrict any use of the information to criminally investigate or prosecute any alcohol or drug abuse patient.[facility] HospitalIn the event this information is protected by the Federal Confidentiality of Alcohol and Drug Abuse Patient Records regulations: The Federal rules restrict any use of the information to criminally investigate or prosecute any alcohol or drug abuse patient.[facility] HospitalIn the event this information is protected by the Federal Confidentiality of Alcohol and Drug Abuse Patient Records regulations: The Federal rules restrict any use of the information to criminally investigate or prosecute any alcohol or drug abuse patient.[facility] HospitalIn the event this information is protected by the Federal Confidentiality of Alcohol and Drug Abuse Patient Records regulations: The Federal rules restrict any use of the information to criminally investigate or prosecute any alcohol or drug abuse patient.[facility] HospitalIn the event this information is protected by the Federal Confidentiality of Alcohol and Drug Abuse Patient Records regulations: The Federal rules restrict any use of the information to criminally investigate or prosecute any alcohol or drug abuse patient.[facility] HospitalIn the event this information is protected by the Federal Confidentiality of Alcohol and Drug Abuse Patient Records regulations: The Federal rules restrict any use of the information to criminally investigate or prosecute any alcohol or drug abuse patient.[facility] HospitalIn the event this information is protected by the Federal Confidentiality of Alcohol and Drug Abuse Patient Records regulations: The Federal rules restrict any use of the information to criminally investigate or prosecute any alcohol or drug abuse patient.[facility] HospitalIn the event this information is protected by the Federal Confidentiality of Alcohol and Drug Abuse Patient Records regulations: The Federal rules restrict any use of the information to criminally investigate or prosecute any alcohol or drug abuse patient.[facility] HospitalIn the event this information is protected by the Federal Confidentiality of Alcohol and Drug Abuse Patient Records regulations: The Federal rules restrict any use of the information to criminally investigate or prosecute any alcohol or drug abuse patient.[facility] HospitalIn the event this information is protected by the Federal Confidentiality of Alcohol and Drug Abuse Patient Records regulations: The Federal rules restrict any use of the information to criminally investigate or prosecute any alcohol or drug abuse patient.[facility] HospitalIn the event this information is protected by the Federal Confidentiality of Alcohol and Drug Abuse Patient Records regulations: The Federal rules restrict any use of the information to criminally investigate or prosecute any alcohol or drug abuse patient.[facility] HospitalIn the event this information is protected by the Federal Confidentiality of Alcohol and Drug Abuse Patient Records regulations: The Federal rules restrict any use of the information to criminally investigate or prosecute any alcohol or drug abuse patient.[facility] HospitalIn the event this information is protected by the Federal Confidentiality of Alcohol and Drug Abuse Patient Records regulations: The Federal rules restrict any use of the information to criminally investigate or prosecute any alcohol or drug abuse patient.[facility] HospitalIn the event this information is protected by the Federal Confidentiality of Alcohol and Drug Abuse Patient Records regulations: The Federal rules restrict any use of the information to criminally investigate or prosecute any alcohol or drug abuse patient.[facility] HospitalIn the event this information is protected by the Federal Confidentiality of Alcohol and Drug Abuse Patient Records regulations: The Federal rules restrict any use of the information to criminally investigate or prosecute any alcohol or drug abuse patient.[facility] HospitalIn the event this information is protected by the Federal Confidentiality of Alcohol and Drug Abuse Patient Records regulations: The Federal rules restrict any use of the information to criminally investigate or prosecute any alcohol or drug abuse patient.[facility] HospitalIn the event this information is protected by the Federal Confidentiality of Alcohol and Drug Abuse Patient Records regulations: The Federal rules restrict any use of the information to criminally investigate or prosecute any alcohol or drug abuse patient.[facility] HospitalIn the event this information is protected by the Federal Confidentiality of Alcohol and Drug Abuse Patient Records regulations: The Federal rules restrict any use of the information to criminally investigate or prosecute any alcohol or drug abuse patient.[facility] HospitalIn the event this information is protected by the Federal Confidentiality of Alcohol and Drug Abuse Patient Records regulations: The Federal rules restrict any use of the information to criminally investigate or prosecute any alcohol or drug abuse patient.[facility] HospitalIn the event this information is protected by the Federal Confidentiality of Alcohol and Drug Abuse Patient Records regulations: The Federal rules restrict any use of the information to criminally investigate or prosecute any alcohol or drug abuse patient.[facility] HospitalIn the event this information is protected by the Federal Confidentiality of Alcohol and Drug Abuse Patient Records regulations: The Federal rules restrict any use of the information to criminally investigate or prosecute any alcohol or drug abuse patient.[facility] HospitalIn the event this information is protected by the Federal Confidentiality of Alcohol and Drug Abuse Patient Records regulations: The Federal rules restrict any use of the information to criminally investigate or prosecute any alcohol or drug abuse patient.[facility] HospitalIn the event this information is protected by the Federal Confidentiality of Alcohol and Drug Abuse Patient Records regulations: The Federal rules restrict any use of the information to criminally investigate or prosecute any alcohol or drug abuse patient.[facility] HospitalIn the event this information is protected by the Federal Confidentiality of Alcohol and Drug Abuse Patient Records regulations: The Federal rules restrict any use of the information to criminally investigate or prosecute any alcohol or drug abuse patient.[facility] HospitalIn the event this information is protected by the Federal Confidentiality of Alcohol and Drug Abuse Patient Records regulations: The Federal rules restrict any use of the information to criminally investigate or prosecute any alcohol or drug abuse patient.[facility] HospitalIn the event this information is protected by the Federal Confidentiality of Alcohol and Drug Abuse Patient Records regulations: The Federal rules restrict any use of the information to criminally investigate or prosecute any alcohol or drug abuse patient.[facility] HospitalIn the event this information is protected by the Federal Confidentiality of Alcohol and Drug Abuse Patient Records regulations: The Federal rules restrict any use of the information to criminally investigate or prosecute any alcohol or drug abuse patient.[facility] HospitalIn the event this information is protected by the Federal Confidentiality of Alcohol and Drug Abuse Patient Records regulations: The Federal rules restrict any use of the information to criminally investigate or prosecute any alcohol or drug abuse patient.[facility] HospitalIn the event this information is protected by the Federal Confidentiality of Alcohol and Drug Abuse Patient Records regulations: The Federal rules restrict any use of the information to criminally investigate or prosecute any alcohol or drug abuse patient.[facility] HospitalIn the event this information is protected by the Federal Confidentiality of Alcohol and Drug Abuse Patient Records regulations: The Federal rules restrict any use of the information to criminally investigate or prosecute any alcohol or drug abuse patient.[facility] HospitalIn the event this information is protected by the Federal Confidentiality of Alcohol and Drug Abuse Patient Records regulations: The Federal rules restrict any use of the information to criminally investigate or prosecute any alcohol or drug abuse patient.[facility] HospitalIn the event this information is protected by the Federal Confidentiality of Alcohol and Drug Abuse Patient Records regulations: The Federal rules restrict any use of the information to criminally investigate or prosecute any alcohol or drug abuse patient.[facility] HospitalIn the event this information is protected by the Federal Confidentiality of Alcohol and Drug Abuse Patient Records regulations: The Federal rules restrict any use of the information to criminally investigate or prosecute any alcohol or drug abuse patient.[facility] HospitalIn the event this information is protected by the Federal Confidentiality of Alcohol and Drug Abuse Patient Records regulations: The Federal rules restrict any use of the information to criminally investigate or prosecute any alcohol or drug abuse patient.[facility] HospitalIn the event this information is protected by the Federal Confidentiality of Alcohol and Drug Abuse Patient Records regulations: The Federal rules restrict any use of the information to criminally investigate or prosecute any alcohol or drug abuse patient.[facility] HospitalIn the event this information is protected by the Federal Confidentiality of Alcohol and Drug Abuse Patient Records regulations: The Federal rules restrict any use of the information to criminally investigate or prosecute any alcohol or drug abuse patient.[facility] Reason for Visit (unrecogniz ed section and content) Reason Comments Migraine Reason Comments Medication Follow-up Refills Reason Comments Refill Request Reason Onset Date Comments Refill Request 06/30/2022 Reason Comments Yearly Exam Reason Comments Results Reason Onset Date Comments Refill Request 11/06/2022 Reason Onset Date Comments Refill Request 01/02/2023 Reason Onset Date Comments Refill Request 01/24/2023 Reason Comments Follow Up Reason Comments Insurance Authorization [employer]ovig 140MG/ML auto-injectors Reason Comments New Pain Reason Comments Med Change Request Reason Onset Date Comments Refill Request 05/31/2023 Reason Onset Date Comments Refill Request 06/01/2023 Reason Onset Date Comments Refill Request 12/11/2023 Reason Comments Patient Update Reason Onset Date Comments Refill Request 06/09/2024 Reason Comments Follow Up 8 week follow up/ me dications changed at last visit Reason Comments Established Patient Follow Up Reason Comments UTI Reason Comments Established Patient RLS Reason Onset Date Comments Refill Request 02/04/2025 Reason Comments Insurance Authorization [employer] Reason Comments Medication Problem Goals (unrecognized section and content) Goals may be documented in a n alternate sectionGoals may be documented in an alternate section FOR RECORDS PERTAINING TO PATIENTS WHO ARE OR HAVE BEEN ENROLLED IN A CHEMICAL DEPENDENCY/SUBSTANCEABUSE PROGRAM, SOME INFORMATION MAY BE OMITTED. This clinical summary was aggregated from multiple sources. Caution should be exercised in using it in the provision of clinical care. This summary normalizes information from multiple sources, and as a consequence, information in this document may materially change the coding, format and clinical context of patient data. In addition, data may be omitted in some cases. CLINICAL DECISIONS SHOULD BE BASED ON THE PRIMARY CLINICAL RECORDS. [employer] provides no warranty or guarantee of the accuracy or completeness of information in this document.
[2025-07-05 10:46] LABS: Anion Gap 10 (5-15); BUN 12 mg/dL (4-19); BUN/Creat Ratio 16.2 RATIO (10-20); Calcium,Total 9.1 mg/dL (7.6-11.0); Carbon Dioxide 23.5 mmol/L (21.0-32.0); Chloride 105 mmol/L (98-108); Estimated Creatinine Clearance 48.84 ml/min (50-250); Glucose 106 mg/dL (70-99); Potassium 4.0 mmol/L (3.3-5.1); Troponin T High Sensitivity 9 ng/L (<=14)
[2025-07-05 12:43] LABS: Troponin T High Sens 2 HR 9 ng/L (<=14)
== END 2025-07-05 14:45 | disposition home or self-care (01) ==
PROVIDERS: Emergency Provider Emergency Medicine; PCP Family Medicine; Visit Provider Emergency Medicine
DX: R55 Syncope and collapse (principal); R11.0 Nausea; E78.5 Hyperlipidemia, unspecified; Z79.899 Other long term (current) drug therapy; I10 Essential (primary) hypertension
CPT/HCPCS: 71045; 80048; 84484; 85025; 85379; 93005; 96374; 99285; A4216; J2405

== ENCOUNTER 2025-07-17 22:34 | Observation (INO) | payer MEDICARE, SELFPAY ==
[2025-07-17 22:34] VITALS: BP 142/90; PULSE 99; RESP 16; TEMP 37.1; O2SAT 96; BMI 27.6
--- NOTE | 2025-07-17 22:43 | EKG12_ITS ---
Test Reason : PALPITATIONS Blood Pressure : */* mmHG Vent. Rate : 83 BPM Atrial Rate : 83 BPM P-R Int : 184 ms QRS Dur : 80 ms QT Int : 382 ms P-R-T Axes : 62 -10 20 degrees QTcB Int : 448 ms Normal sinus rhythm Normal ECG Confirmed by JEREL SOLIS, ANDREI ([id number]), editor at large NEHA GOODRICH ([id number]) on 07/20/2025 8:11:08 AM Referred By: BB Confirmed By: ANDREI BELTRÁN MD
--- NOTE | 2025-07-17 23:01 | CT_ITS ---
PROCEDURE: CT BRAIN/HEAD WITHOUT CONTRAST 07/17/2025 REASON FOR EXAM: DYSEQUILIBRIUM, HEADACHES, CONFUSION TECHNIQUE: Procedure Code: CTBR Modality: CT Procedure: BRAIN/HEAD WITHOUT CONTRAST Coronal and Sagittal reconstruction series were provided. One or more dose reduction techniques were used (e.g., Automated exposure control, adjustment of the mA and/or kV according to patient size, use of iterative reconstruction technique. RADIATION DOSE SUMMARY: CTDlvol: 44.99 mGy DLP: 745.49 mGycm COMPARISON: None. FINDINGS: No acute intracranial hemorrhage, extra-axial collection, mass effect or evidence of acute infarct. 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 Atherosclerotic vascular calcifications. Unremarkable orbits. Intact skull base and calvarium. Well-aerated paranasal sinuses and mastoid air cells. CT/Brain/Head without Contrast IMPRESSION: No evidence of acute intracranial pathology. Mild volume loss and moderate chronic small-vessel ischemic changes. Reading Location: [facility]
[2025-07-17 23:05] LABS: Hematocrit 39.4 % (37-47); Hemoglobin 13.4 g/dL (12.0-15.0); Immature Granulocytes Count 0.020 X10^3/uL (0.0-0.0); Mean Corp Hgb Conc 34.0 g/dL (32-36); Mean Corpuscular Volume 94.5 fL (81-99); Mean Platelet Vol. 9.4 fl (6.2-12.0); NRBC Flagged by Analyzer 0 % (0-5); Platelet Count 269 K/mm3 (150-450); RBC Distribution Width CV 12.8 % (11.6-14.6); RBC Distribution Width SD 44.1 fl (35.1-43.9); Red Blood Count 4.17 M/mm3 (4.2-5.4); White Blood Count 5.8 K/mm3 (4.4-11.0)
[2025-07-17 23:15] LABS: Anion Gap 11 (5-15); BUN 13 mg/dL (4-19); BUN/Creat Ratio 15.4 RATIO (10-20); Calcium,Total 9.8 mg/dL (7.6-11.0); Carbon Dioxide 23.9 mmol/L (21.0-32.0); Chloride 106 mmol/L (98-108); Estimated Creatinine Clearance 47.73 ml/min (50-250); Glucose 113 mg/dL (70-99); Potassium 3.9 mmol/L (3.3-5.1)
--- NOTE | 2025-07-17 23:56 | EX.ED.DYSGE1 ---
HPI History of Present Illness Chief Complaint: Dizziness Informant: patient and family (x3) Narrative Narrative: 85-year-old female has been having episodes of dizziness for the past approximately 2 weeks, feels like she is off balance and has a funny feeling in her head she cannot describe it further. Initially it seemed to start after she tapered herself off of gabapentin, which she was on for restless leg syndrome and possibly migraines, she and her were concerned that she could develop a dangerous situation or symptoms regarding the gabapentin and decided on their own to taper off of it. She had 2 episodes where she lost some time and thought maybe she had lost consciousness without warning so she was seen here in the ER and had a cardiac workup, it was negative and she declined admission wanted to go home. Family put an Apple Watch with EKG capability on her, and the next morning she had another episode and her pulse was 92, arguing again symptomatic bradycardia but she did not become lightheaded or syncopal. She was having daily symptoms upon getting out of bed that felt like she was off balance and going to fall, so family started giving her meclizine in the morning did not seem to help. However in the past several days she has had some episodes of jade confusion that is very unlike her, and in the past day or 2 she has been having more frequent disequilibrium throughout the day which is also new. Today it has been there almost the entire day and taking another meclizine in the afternoon did not seem to help anything. She denies any associated diplopia or photophobia but she has had some occasional blurry vision. She denies any focal weakness or numbness in arms or legs with this. She has migraines and has them frequently for an hour or so at a time, she does not recognize any association between the headaches and the dizziness symptoms, and when she has taken sumatriptan for her migraine, it tends to help. She denies any tinnitus, earache, changes in her hearing. She gets nauseated often with this but has not had anything severe or vomiting. She states the symptoms are very mild right now but she states my head just does not feel right. [facility] Medical History Osteopenia Hyperlipidemia Migraines Back problem Arthritis Seasonal allergies Hypertension Home Medications ?Medication ?Instructions ?Recorded ?Last Taken ?Type calcium 600 mg (as 1 ea PO DAILY supplement 07/18/19 Unknown History carbonate)-vitamin D3 10 mcg (400 unit) tablet ezetimibe 10 mg tablet 10 mg PO DAILY cholesterol 07/18/19 Unknown History leonweua-qlp-pahs-FA-Ca carb-vit K 1 ea PO DAILY vitamin 07/18/19 Unknown History 18 mg iron-400 mcg-500 mg tablet pramipexole 0.25 mg tablet 0.25 mg PO QHS restless legs 07/18/19 Unknown History sumatriptan succinate 50 mg tablet 25 mg PO PRN PRN cluster headache 07/18/19 Unknown History fremanezumab-vfrm 225 mg/1.5 mL 225 mg subcut Q30D 09/05/21 Unknown History subcutaneous auto-injector (Ajovy) lisinopril 5 mg tablet 5 mg PO DAILY 09/05/21 Unknown History Allergy/AdvReac Type Severity Reaction Status Date / Time No Known Allergies Allergy Verified 07/17/25 22:34 Family History Father Myocardial infarction Brother Pancreatic cancer Sister Lung cancer Surgical History H/O breast biopsy S/P LEEP (loop electrosurgical excision procedure) H/O tubal ligation Social History household members: spouse Smoking Status: Never smoker alcohol intake: never substance use type: does not use ROS ROS ED Constitutional Constitutional ED: Reports malaise; Denies chills or fever(s) Eyes Eyes: Reports blurry vision bilateral (off and on); Denies change in vision or diplopia ENT ENT ED: Denies ear pain, rhinorrhea or sore throat Cardiovascular Cardiovascular: Denies chest pain or palpitations Respiratory/Chest Respiratory/Chest: Denies cough or dyspnea Gastrointestinal Gastrointestinal: Reports nausea; Denies abdominal pain, diarrhea or vomiting Genitourinary Genitourinary ED: Denies dysuria or hematuria Musculoskeletal Musculoskeletal: Denies back pain or neck pain Integumentary Denies abscess or rash Neurologic Neurologic: Reports as per HPI, abnormal gait, confusion, disequilibrium, dizziness and headache(s); Denies abnormal speech, focal weakness, loss of vision, paresthesias or weakness Psychiatric Psychiatric: Denies anxiety or suicidal thoughts EXAM Physical Exam Const Vital Signs: 07/17/25 22:34 07/17/25 22:43 07/18/25 00:34 Temperature 98.7 F Temperature Source Oral Pulse Rate 99 74 Respiratory Rate 16 12 Blood Pressure 142/90 H 149/78 H Blood Pressure Mean 107 101 Pulse Ox 96 97 Oxygen Delivery Method Room Air Room Air Room Air Positive well nourished and well developed General Appearance ED: well developed and NAD HEENT Reports TM's clear and moist mucous membranes normocephalic and atraumatic Tympanic Membrane ED: Yes TM's clear Eyes PERRL and EOMs intact bilaterally Eyes Narrative: No nystagmus including horizontal, vertical, direction changing, rotatory. Neck full ROM and supple Resp normal respiratory effort and clear to auscultation bilaterally Cardio regular rate, regular rhythm and no murmurs GI non-tender and non-distended Auscultation: normoactive bowel sounds Palpation: soft Back/Spine no CVA tenderness General Back: other FROM Extremity normal to inspection General Extremety ED: Negative for edema, pulses abnormal or tenderness General Extremity: Negative for edema or pulses abnormal Neuro oriented x3, CN's II-XII intact bilaterally and no sensory deficits noted Neuro Narrative: Normal speech. No dysmetria normal fnrarr-if-gtum and srlj-tb-empr bilaterally. NIHSS 0. Doing [place]-Hallpike bilaterally worsened symptoms slightly, and symmetrically, without severe symptoms or nystagmus. Negative skew test. Normal jolt test, however symptoms not prominent when performing test. Sensorium / Orientation: awake and alert Motor Exam: strength 5/5 throughout Psych mental status grossly normal Skin no rashes or lesions noted and no wounds MDM MDM MDM Narrative Medical decision making narrative: Labs, EKG normal, I obtained a head CT to evaluate for stroke or possible central etiologies, I reviewed the images and the result which I agree with it is unremarkable for anything acute. Differential here includes vestibular migraine, TIA/stroke, vestibulitis, medication related issues. Initially it seemed reasonable that withdrawing from gabapentin would cause this but should not be getting worse after 2 weeks if that was the case. She did try to call her doctor for follow-up but she is not going to be able to get in for a month or so with PCP and neurology, who she is established with. Given this, I think she would benefit from being admitted for neurology consult and a brain MRI. After discussing with hospitalist, CT angiography of the head and neck was obtained, I reviewed the imaging and the report which I agree with, it showed minimal vascular disease and no significant stenosis in any of the large vessels of the head and neck. Lab Data Attestation: I reviewed the patient's lab results. Labs: Laboratory Results - last 24 hr 07/17/25 07/17/25 07/17/25 22:34 22:48 22:54 WBC 5.8 RBC 4.17 L Hgb 13.4 Hct 39.4 MCV 94.5 MCH 32.1 H MCHC 34.0 RDW Std Deviation 44.1 H RDW Coeff of Eliel 12.8 Plt Count 269 MPV 9.4 Immature Gran % (Auto) 0.300 Neut % (Auto) 53.4 Lymph % (Auto) 32.5 [place] % (Auto) 10.0 Eos % (Auto) 2.4 Baso % (Auto) 1.4 H Absolute Neuts (auto) 3.1 Absolute Lymphs (auto) 1.89 Nucleated RBC % 0 Sodium 141 Potassium 3.9 Chloride 106 Carbon Dioxide 23.9 Anion Gap 11 BUN 13 Creatinine 0.81 Estim Creat Clear Calc 47.73 L Est GFR (MDRD) Non-Af 72 BUN/Creatinine Ratio 15.4 Glucose 113 H Calcium 9.8 Magnesium 2.3 H POC Glucose 109 H Radiography Diagnostic Testing: Clinical Impression(s) from Imaging Studies Brain CT 07/17/25 23:01 IMPRESSION: No evidence of acute intracranial pathology. Mild volume loss and moderate chronic small-vessel ischemic changes. Reading Location: [facility] Rhythm Strip Rhythm Strip: Sinus Rhythm Rate: 83 Ectopy: None EKG Initial EKG: Attestation: I personally reviewed and interpreted this EKG as follows: Interpretation: Sinus Rhythm and No Acute Injury Pattern Comments: Nml axis & intervals; nml EKG Management Discussion w/another healthcare provider: Hospitalist Discharge Plan Dx/Rx/DC Orders Clinical Impression: Dysequilibrium, Intermittent confusion, Migraine headache Disposition Disposition: Acute Care Hospital [facility] Discharge Date/Time: 07/18/25 01:55
[2025-07-18] VITALS (8 sets, daily range): BP systolic 98–155; BP diastolic 68–95; PULSE 72–87; RESP 11–18; TEMP 35.9–36.9; O2SAT 97–99; BMI 60.5; BMI 27.5
[2025-07-18] MEDS: 0.9% Normal Saline (1000mL) 1,000 ML 50 ML IV
--- NOTE | 2025-07-18 00:41 | PCM.HP.STD ---
HPI - General General Date of Admission: 07/18/25 Date of Service: 07/18/25 Chief Complaint: Dizziness. HPI Narrative The patient is an 85 y/o F w/ PMHx: CKD stage II per GFR trending, HTN, HLD, RLS, Chronic migraines, Allergic rhinitis who presents to the [facility] ED on 07/18/2025 with history of persistent ongoing dizziness/imbalance over the last 2 weeks noted to be episodic with certain positions triggering the symptoms although patient cannot discern if there is any pattern to the position and cannot give exact specifics but does report also recently she had been on chronic gabapentin 300 mg 3 times daily and has been currently attempting to wean off when the symptoms incidentally started with also reported recent episode of syncopal events noted to have been awoken on the floor with ED visit prior because of these findings with unremarkable cardiac workup with planned Holter monitor assessment unfortunately so that to be set up but she did have an Apple watch set up with no cardiac concerns on the telemetry in addition per family intermittent confusion again similarly over the last 2 weeks prompting family eventually to bring her in for evaluation. Patient had been attempting to wean off of the gabapentin as her had read a side effect profile on the Internet and was concerned. She purportedly prior to that had no specific issues with this medication. Patient does take injections for her migraines and does report that over the last 4 weeks she has used her triptan for abortive migraine intervention at least 4 times. Workup in the ED included T98.7, heart rate 99, BP 142/90, respiratory rate 16, 96% on room air, CBC with WC 5.8, Hgb 13.4, platelet 269 without marked shift, BMP with BUN/creatinine 13/0.1, GFR 72, glucose 113, CT brain with no acute intracranial pathology with mild volume loss and moderate chronic small vessel ischemic changes, EKG with SR with no acute evidence of ischemia. In the ED patient ministered maintenance IV fluids. [facility] Medical History Osteopenia Hyperlipidemia Migraines Back problem Arthritis Seasonal allergies Hypertension Home Medications ?Medication ?Instructions ?Recorded ?Last Taken ?Type calcium 600 mg (as 1 ea PO DAILY supplement 07/18/19 Unknown History carbonate)-vitamin D3 10 mcg (400 unit) tablet ezetimibe 10 mg tablet 10 mg PO DAILY cholesterol 07/18/19 Unknown History eqoabfxu-lcs-mxvc-FA-Ca carb-vit K 1 ea PO DAILY vitamin 07/18/19 Unknown History 18 mg iron-400 mcg-500 mg tablet pramipexole 0.25 mg tablet 0.25 mg PO QHS restless legs 07/18/19 Unknown History sumatriptan succinate 50 mg tablet 25 mg PO PRN PRN cluster headache 07/18/19 Unknown History fremanezumab-vfrm 225 mg/1.5 mL 225 mg subcut Q30D 09/05/21 Unknown History subcutaneous auto-injector (Ajovy) lisinopril 5 mg tablet 5 mg PO DAILY 09/05/21 Unknown History Allergy/AdvReac Type Severity Reaction Status Date / Time No Known Allergies Allergy Verified 07/17/25 22:34 Family History Father Myocardial infarction Brother Pancreatic cancer Sister Lung cancer Surgical History H/O breast biopsy S/P LEEP (loop electrosurgical excision procedure) H/O tubal ligation Social History household members: spouse Smoking Status: Never smoker alcohol intake: never substance use type: does not use ROS ROS Narrative Admission Review of Systems: CONSTITUTIONAL: No weight loss, fever, chills, + weakness or fatigue. HEENT: + Chronic migraines. Eyes: No visual loss, blurred vision, double vision or yellow sclerae. Ears, Nose, Throat: No hearing loss, sneezing, congestion, runny nose or sore throat. SKIN: No rash or itching, lesions, wounds. CARDIOVASCULAR: + Recent history of syncopal events with recent evaluation with cardiac etiology ruled out. No chest pain, chest pressure or chest discomfort, palpitations, edema, orthopnea. RESPIRATORY: No shortness of breath, cough or sputum, wheezing, hemoptysis. GASTROINTESTINAL: No anorexia, nausea, vomiting or diarrhea, abdominal pain, melena, BRBPR. GENITOURINARY: No dysuria, frequency, urgency or retention. NEUROLOGICAL: + Chronic migraines, dizziness/disequilibrium, recent history of syncopal events with recent evaluation with cardiac etiology rule out. No paralysis, ataxia, numbness or tingling in the extremities, focal weakness, change in bowel or bladder control, seizure. MUSCULOSKELETAL: + muscle, back pain, joint pain or stiffness. HEMATOLOGIC: No anemia, bleeding or bruising. LYMPHATICS: No enlarged nodes. No history of splenectomy. PSYCHIATRIC: No history of depression or anxiety. ENDOCRINOLOGIC: No reports of sweating, cold or heat intolerance. No polyuria or polydipsia. ALLERGIES: No history of asthma, hives, eczema or rhinitis. Vital Signs Vital Signs Vital Signs: 07/17/25 22:34 07/17/25 22:43 Temperature 98.7 F Temperature Source Oral Pulse Rate 99 Respiratory Rate 16 Blood Pressure 142/90 H Blood Pressure Mean 107 Pulse Ox 96 Oxygen Delivery Method Room Air Room Air Weight Weight: 151 lb Body Mass Index (BMI) 27.6 Physical Exam Narrative Physical Examination: General: Awake, alert, oriented x 3 and cooperative, seated upright in the ED bed, currently denies any dizziness or disequilibrium sensation, no current migraine. Skin: Normal color, normal turgor, no icterus, no cyanosis except occasional stage ecchymoses, abrasion. HEENT: AT/NC, EOMI, PERRLA, MMM, no carotid bruits or JVD noted. Lungs: CTA bilaterally, moderate effort, mild decrease BL bases, no rales, ronchi or wheezing. Heart: Regular rate and rhythm; no gallop, rub audible. Abdomen: Soft, NTTP, ND, mildly hyperactive BS, no HSM. Extremities: No cyanosis, clubbing, or edema. Neurological: Patient awake, alert, oriented as noted, cognitive function currently appears baseline intact but confusion has been episodic, pupils equally reactive to light and accommodation, cranial nerves grossly normal, moving all 4 extremities, no focal deficits, strength preserved, sensation intact, finger-nose and racy-ho-mmgm appropriate, equivocal Babinski. Psychiatric: Affect appears mildly fatigued otherwise normal, no acute evidence of depressive or anxiety feelings. Results Lab / Micro Data 07/17/25 22:54 07/17/25 22:54 Labs: Laboratory Results - last 24 hr 07/17/25 22:48: POC Glucose 109 H 07/17/25 22:54: WBC 5.8, RBC 4.17 L, Hgb 13.4, Hct 39.4, MCV 94.5, MCH 32.1 H, MCHC 34.0, RDW Std Deviation 44.1 H, RDW Coeff of Eliel 12.8, Plt Count 269, MPV 9.4, Immature Gran % (Auto) 0.300, Neut % (Auto) 53.4, Lymph % (Auto) 32.5, Sanders % (Auto) 10.0, Eos % (Auto) 2.4, Baso % (Auto) 1.4 H, Absolute Neuts (auto) 3.1, Absolute Lymphs (auto) 1.89, Nucleated RBC % 0, Sodium 141, Potassium 3.9, Chloride 106, Carbon Dioxide 23.9, Anion Gap 11, BUN 13, Creatinine 0.81, Estim Creat Clear Calc 47.73 L, Est GFR (MDRD) Non-Af 72, BUN/Creatinine Ratio 15.4, Glucose 113 H, Calcium 9.8 Rhythm Strip Rhythm Strip: Sinus Rhythm Rate: 83 Ectopy: None Imaging Radiology Impression Brain CT 07/17/25 23:01 IMPRESSION: No evidence of acute intracranial pathology. Mild volume loss and moderate chronic small-vessel ischemic changes. Reading Location: [facility] Assessment & Plan Assessment/Plan (1) Dysequilibrium: PLAN: Plan The patient is an 85 y/o F w/ PMHx: CKD stage II per GFR trending, HTN, HLD, RLS, Chronic migraines, Allergic rhinitis who presents to the [facility] ED on 07/18/2025 with history of persistent ongoing dizziness/imbalance over the last 2 weeks noted to be episodic with certain positions triggering the symptoms although patient cannot discern if there is any pattern to the position and cannot give exact specifics in addition to recent medication alteration. #1. Persistent dizziness concerning for possible TIA/CVA although would have expected at least subacute findings on CT given length of time versus intractable complex migraine versus potentially medication side effect with recent de-escalation gabapentin: Will admit to PCU, will obtain MRI Brain with and without contrast given notable headaches, CTA head and Neck, ECHO, PT/OT/Speech/Nutrition evaluation per protocol. Will allow permissive HTN, will obtain orthostatics, will maintain on asa, maintain on fall precautions. Mag, TSH, FLP, HgbA1c requested. Will consult neurology. #2. Chronic Kidney Disease Stage II per GFR trending: Admission BUN/Cr 13/0.81, GFR 72, baseline renal function primarily 0.6-0.8, repeat BMP in AM. #3. Chronic migraines: Will hold patient triptan therapy given pending workup as noted #1, resume once clinically appropriate. #4. Hypertension: Will maintain permissive hypertension pending evaluation as noted above, as needed agents per stroke protocol. #5. Hyperlipidemia: Will continue patient on ezetimibe via regimen, not on statin therapy, FLP in AM. #6. Allergic rhinitis: Per current list not on regimen chronically, encouraged continued follow-up outpatient. #7. Restless leg syndrome: Will continue patient home pramipexole regimen #8. DVT prophylaxis: Lovenox. #9. CODE status: Patient GARTH is her who is present and living will is currently in place. Discussed CODE status at length including difference between FULL code, DNR-CCA and DNR-CC status. Following discussions about the differences in these status, requested Full Code status. Charges/Coding Visit Charges Inpatient E&M: 45607 Init Hosp L2
--- OUTSIDE RECORDS SUMMARY | 2025-07-18 01:25 | XMS RPT_ITS | CCD ---
Author Organization [facility] Care Team Providers Care Comsec Manager Name Role Phone Deliciamichael Ana Unavailable [phone] Miko Anne Taz Unavailable SANJANA GARNICA Unavailable Unavailable RUPALI CLINE Unavailable Unavailable PAVAN JAMES Attending Unavailable RUPALI CLINE Primary Care Unavailable Rupali Cline DO Primary Care Provider Fast DO, Mary A Primary Care Provider Fast DO, Mary A Primary Care Provider Fast DO, Mary A Primary Care Provider Rupali Cline DO Primary Care Provider [phone] RUPALI CLINE Primary Care Unavailable LAYLA PALOMINO Admitting Unavailable Fast DO, Mary A Primary Care Provider Rupali Cline DO Primary Care Provider Fast DO, Mary A Primary Care Provider Dr. Rupali Cline DO Primary Care Provider Dr. Carlton Vasquez MD Emergency Provider Rupali Cline Referring Unavailable Rupali Cline Attending Unavailable Rupali Cline Primary Care Unavailable Carlton Vasquez Attending Unavailable Rupali Cline Primary Care Unavailable URPALI CLINE Primary Care Unavailable INDIANA BROWN Attending Unavailable INDIANA AUGUSTE Referring Unavailable RUPALI CLINE Primary Care Unavailable RUPALI CLINE Primary Care Unavailable INDIANA BROWN Attending Unavailable SON, RUPALI A Primary Care Unavailable LAYLA CHERRY Attending Unavailable RUPALI CLINE Primary Care Unavailable INDIANA BROWN Attending Unavailable INDIANA AUGUSTE Attending Unavailable RUPALI CLINE Primary Care Unavailable RUPALI CLINE Primary Care Unavailable INDIANA BROWN Referring Unavailable Allergies Allergy Classification Reported Allergen(s) Allergy Type Date of Onset Reaction(s) Facility (3 sources) atorvastatin drug allergy 05-29-20 16 [facility] Work Phone: (3 sources) pravastatin drug allergy 05-29-20 16 Myalgia [facility] Work Phone: (20 sources) atorvastatin; Translations: [ATORVASTATIN] Drug Allergy 05-29-20 Other: See Comments [facility] (20 sources) Pravastatin; Translations: [PRAVASTATIN] Drug Allergy 05-29-20 Other: See Comments [facility] (20 sources) SEASONAL [Other] Propensity to adverse reactions 09-26-20 [facility] Work Phone: Medications Current Medications Medication Drug [...] Vitamin D Start: 07-18-2019 Calcium Carbonate-Vitamin D3 1 EACH tablet Active 1 NMA PO DAILY July 18, 2019 12:00am supplement Start: 07-18-2019 Calcium Carbon ate-Vitamin D3 Active 1 EACH PO DAILY July 18, 2019 12:00am Start: 11-29-2009 calcium carbon ate/vitamin d3(CALCIUM 600 + D(3) 600 MG (1,500)-200 UNIT TAB) Take one(1) tablet twice daily. 0 11/29/2009 Active Comment on above: Take one(1) tablet t wice daily. cephalexin 500 mg oral capsule (1 source) Cephalosporin Antibacterial Start: End: take 1 capsule by mouth twice daily cephALEXin (KEFLEX) 500 MG capsule Take 1 (one) capsule (500 mg total) by mouth 2 (two) times a day for 7 days . 14 capsule 0 08/25/2022 09/01/2022 Active 1 ml erenumab-aooe 140 mg/ml auto-injector (20 sources) Start: End: inject 1 mL by subcutaneous injection every [...] Cholesterol Absorption Inhibitor Start: 5 End: 9 take 1 tablet by mouth once daily Ezetimibe 10 MG tablet Active 10 mg PO DAILY July 18, 2019 12:00am cholesterol Comment on above: Take by mouth. 1.5 ml fremanezumab-vfrm 150 mg/ml auto-injector (3 sources) Start: Fremanezumab-Vfrm (Ajovy Autoinjector) 225 mg/1.5 mL auto-injector Active 225 mg SC Q30D September 05, 2021 1:00am fremanezumab-vfrm (AJOVY SYRINGE SUBQ) (3 sources) fremanezumab-vfr m (AJOVY SYRINGE SUBQ) Inject under the skin every 30 (thirty) days . 0 Active lisinopril 5 mg oral tablet (20 sources) Angiotensin Converting Enzyme Inhibitor Start: 1 take 1 tablet by mouth once daily Lisinopril 5 mg tablet Active 5 mg PO DAILY September 05, 2021 1:00am Start: 12-16-2014 End: 08-24-2020 take 1 tablet by mouth once daily Lisinopril 5 mg tablet Discontinued 5 mg PO DAILY 90 0 July 03, 2019 12:00am August 24, 2020 1:03pm htn Comment on above: Take 5 mg by [...] mouth daily Vitafusion brand . 0 Active La-Ao-Awqa-Fa-Ca Carb-Vit K (2 sources) Start: 07-18-20 Aw-Hs-Mnjg-Fa-Ca Carb-Vit K Active 1 EACH PO DAILY July 18, 2019 12:00am Wh-Ii-Zihd-Fa-Ca Carb-Vit K 1 EACH tablet (1 source) Start: 07-18-20 take 1 tablet by mouth once daily Vz-Pm-Aqng-Fa-Ca Carb-Vit K 1 EACH tablet Active 1 NMA PO DAILY July 18, 2019 12:00am vitamin nitrofurantoin, macrocrystals 25 mg / nitrofurantoin, monohydrate [...] source) Polyene Antifungal Start: 08-28-20 End: 08-28-20 23 nystatin (MYCOSTATIN) powder Apply topically 2 (two) times a day . 15 g 0 08/28/2022 08/28/2023 Active OTC NUTRITIONAL SUPPLEMENT (20 sources) Start: 07-26-20 OTC NUTRITIONAL SUPPLEMENT calcium 600 mg qd [...] 10/04/2022 Active Start: 09-05-2021 End: 02-06-2022 take 1 capsule by mouth once daily Pregabalin 150 mg capsule Active 150 mg PO DAILY September 05, 2021 1:00am RLS Comment on above: Take 1 capsule by [...] 07/22/2020 Active Start: 07-18-2019 Sumatriptan Joiner ccinate 50 MG tablet Active 25 mg PO NEEDED as needed for cluster headache July 18, 2019 12:00am Start: 07-18-2019 Sumatriptan Joiner ccinate Active 25 MG PO NEEDED July 18, 2019 12:00am Start: 03-07-2016 SUMATRIPTAN JOINER CCINATE 100 MG TABS 1/2-1 tab as needed for migraine headache SUMATRIPTAN SUCCINATE [id number] Rupali Cline DO Comment on above: Take 100 mg by mouth . Take 1 tablet by albaro th as needed (Migraine). Take 50 mg to 100 mg at migraine onset. May repeat once in 2 hours if needed. THERAPEUTIC MULTIVITAMIN ORAL TAB (20 sources) Start: take 1 tablet by mouth once daily THERAPEUTIC MULTIVITAMIN ORAL TAB Take one(1) tablet daily. 0 07/26/2005 Active Comment on above: Take one(1) tablet d aily. Completed/Discontinued Medications Medication Drug Class(es) Dates Sig (Normalized) Sig (Original) amitriptyline hydrochloride 25 mg oral tablet (3 sources) Tricyclic Antidepressant Start: 07-18-2019 End: 08-24-2020 take 1 tablet by mouth at bedtime Amitriptyline 25 MG tablet Discontinued 25 mg PO AT BEDTIME July 18, 2019 12:00am August 24, 2020 1:02pm headaches aspirin 81 mg delayed release oral tablet [...] to two tablets by mouth daily CALCIUM [id number] Rupali Darren [facility] emollient combination no.61 (COCONUT OIL CREAM TOPICAL) (4 sources) End: 05-18-2022 emollient combination no.61 (COCONUT OIL CREAM TOPICAL) Apply to affected area. 0 05/18/2022 Discontinued (Other) emollient combin ation no.61 (COCONUT OIL CREAM TOPICAL) Apply to affected area. 0 Active Comment on above: Apply to affected ar ea. gabapentin 300 mg oral capsule (20 sources) Anti-epileptic Agent Start: 12-24-2023 End: 07-06-2025 gabapentin (NEURONTIN) 300 mg capsule Take 1 to 2 capsules at 3PM and 1 to 2 capsules at 7PM. 360 capsule 1 09/17/2024 07/06/2025 Discontinued Comment on above: Take 1 to 2 capsules at 5PM and 1 capsules at 9PM. LINACLOTIDE (6 sources) Guanylate Cyclase-C Agonist Start: 01-07-2015 LINZESS 145 MCG CAPS as needed LINACLOTIDE [id number] Talita Cheatham [facility] Start: 01-07-2015 End: 03-07-2016 LINZESS 145 MCG CAPS as need ed LINACLOTIDE [id number] Rupali Cline DO multivitamin (3 sources) Start: 03-07-2016 take 1 tablet by mouth once daily MULTI-VITAMIN TABS One tablet by mouth daily MULTIPLE VITAMIN [id number] Rupali A Son DO phenazopyridine hydrochloride 200 mg oral tablet [...] tablet 2 06/22/2023 Active Start: 07-18-2019 take 1 tablet by albaro th at bedtime Pramipexole 0.25 MG tablet Active 0.25 mg PO AT BEDTIME July 18, 2019 12:00am restless legs Start: 04-11-2019 pramipexole (M IRAPEX) 0.5 mg [...] One tablet by mouth daily PRAVASTATIN SODIUM [id number] Rupali Banks [facility] Turmeric Root Extract (3 sources) Start: 9 End: 0 take 1 capsule by mouth once daily Turmeric Root Extract 500 MG capsule Discontinued 500 mg PO DAILY July 18, 2019 12:00am July 02, 2020 11:53am supplement Start: 07-18-2019 End: 07-02-2020 take 500 mg by mouth once daily [...] [Postmenopausal atrophic vaginitis] Onset: 11-26-2008 11-26-2008 Chronic Miscellaneous mental health disorders (2 sources) Chronic insomnia; Translations: [Psychophysiologic insomnia] Onset: 07-06-2025 07-06-2025 Chronic Other congenital anomalies (1 source) Porokeratosis; [...] source) Insomnia; Translations: [Insomnia, unspecified] 11-17-2024 Episodic Syncope (2 sources) Syncope symptom; Translations: [Syncope and collapse] Onset: 07-09-2025 07-05-2025 Episodic Unclassified (3 sources) Obstructive sleep apnea syndrome; Translations: [Obstructive sleep apnea (adult) (pediatric)] Onset: 06-14-2016 06-14-2016 Chronic Viral infection (3 sources) Disease caused by 2019-nCoV; Translations: [COVID-19] 09-05-2021 Episodic Past or Other Problems Problem Classification Problem Date Documented Date Episodic/Chronic Miscellaneous mental health disorders (20 sources) Disorders of initiating and maintaining sleep; Translations: [Adjustment insomnia] Onset: 11-26-2008 Resolved: 07-06-2025 11-26-2008 Episodic Other bone disease and musculoskeletal [...] Test Name Value Interpretation Reference Range Facility Ferritin SerPl-mCncon 2024 Ferritin [Mass/Vol] 151.0 ng/mL Normal 14.7-205.1 [facility] Comment on above: Order Comment: Speci men Type: BLOOD SPECIMENOrdering Facility: [facility] Address: [address] [place] [address] Performed By: #### 5 0190-8, 2276-4 ####[facility] LABCLIA [id number] [place] [address] [place] Iron and Iron binding capaci ty panelon 07-10-2025 Iron [Mass/Vol] 65 ug/dL Normal 41-186 [facility] Comment on above: Order Comment: Speci men Type: BLOOD SPECIMENOrdering Facility: [facility] Address: [address] [place] [address] Performed By: #### 5 0190-8, 6-4 ####[facility] LABCLIA [id number] [place] [id number] [place] Iron binding capacity [Mass/Vol] 229 ug/dL Low 232-386 [facility] Comment on above: Order Comment: Speci men Type: BLOOD SPECIMENOrdering Facility: [facility] Address: [address] [place] [address] Performed By: #### 5 0190-8, 2275-4 ####[facility] LABIA [id number] [place] [address] [place] Iron/TIBC [Molar ratio] 28.4 % Normal 15.0-57.0 [facility] Comment on above: Order Comment: Speci men Type: BLOOD SPECIMENOrdering Facility: [facility] Address: [address] [place] [address] Performed By: #### 5 0190-8, 2275-4 ####[facility] LABIA [id number] [place] [id number] [place] 12 Lead EKGon 07-05-2025 12 Lead EKG [facility] Cardiovascular Services [address] [place] [address] 12 Lead EKG 07/05/25 1015 MR#: [id number] Acct: [id number] Name: BALDO GRANT Rep #: [id number] : 1940 85 From: Kenn Chun MD Attending Dr: Status: DEP ER Ordering Dr: Carlton Vasquez MD Date: 07/05/25 Location: ED Sex: F C Admitted: Test Reason : Blood Pressure : */* mmHG Vent. Rate : 65 BPM Atrial Rate : 65 BPM P-R Int : 186 ms QRS Dur : 76 ms QT Int : 416 ms P-R-T Axes : 82 4 47 degrees QTcB Int : 432 ms Normal sinus rhythm Normal ECG Confirmed by Kenn Chun ([id number]), primer expeditor and drier ELIO PARRISH ([id number]) on 07/06/2025 9:48:38 AM Referred By: Confirmed By: Kenn Chun 07/06/25947 Date Kenn Chun MD CC: Dr. Carlton Vasquez MD; Dr. Rupali Cline DO Signed Normal [facility] Absolute lymphocyte countOrd ered By: Carlton Vasquez on 07-05-2025 Lymphocytes Auto (Unsp spec) [#/Vol] 1.62 10*3/uL 0.83-4.51 [facility] Absolute neutrophil countOrd ered By: Carlton Vasquez on 07-05-2025 Neutrophils (Bld) [#/Vol] 2.5 10*3/uL 2.0-7.7 [facility] Anion gap in Serum or Plasma Ordered By: Carlton Vasquez on 07-05-2025 Anion gap [Moles/Vol] 10 mmol/L 5-15 [facility] Automated lymphocyte count a s percentage of total leukocytesOrdered By: Carlton Vasquez on 07-05-2025 Lymphocytes/100 WBC Auto (Unsp spec) 34.2 % -41 [facility] BUN/creatinine ratioOrdered By: Carlton Vasquez on 07-05-2025 Urea nitrogen/Creatinine [Mass ratio] 16.2 mg/mg - [facility] Basic Metabolic Profile (BMP )on 07-05-2025 BUN/CRE 16.2 RATIO Normal - [facility] Comment on above: Performed By: #### L 506.1000, L500.4050, L100.0100, L500.4100 #### [facility] [address] [place], [address] Calcium [Mass/Vol] 9.1 mg/dL Normal 7.6-11.0 [facility] Comment on above: Performed By: #### L 506.1000, L500.4050, L100.0100, L500.4100 #### [facility] [address] [place], [address] Chloride [Moles/Vol] 105 mmol/L Normal 98-108 [facility] Comment on above: Performed By: #### L 506.1000, L500.4050, L100.0100, L500.4100 #### [facility] [address] [place], [address] CO2 [Moles/Vol] 23.5 mmol/L Normal 21.0-32.0 [facility] Comment on above: Performed By: #### L 506.1000, L500.4050, L100.0100, L500.4100 #### [facility] [address] [place], [address] Creatinine [Mass/Vol] 0.76 mg/dL Normal 0.70-1.20 [facility] Comment on above: Performed By: #### L 506.1000, L500.4050, L100.0100, L500.4100 #### [facility] [address] [place], [address] ECRCL 48.84 ml/min Low 50-250 [facility] Comment on above: Performed By: #### L 506.1000, L500.4050, L100.0100, L500.4100 #### [facility] [address] [place], [address] GAP 10 Normal 5-15 [facility] Comment on above: Performed By: #### L 506.1000, L500.4050, L100.0100, L500.4100 #### [facility] [address] [place], [address] GFR/1.73 sq M.predicted among non-blacks MDRD (S/P/Bld) [Vol rate/Area] 78 mL/min/{1.73_m2} Normal >60 [facility] Comment on above: Result Comment: mL/m in/1.73m2 CKD-EPI Creatinine Equation (2020) Performed By: #### L 506.1000, L500.4050, L100.0100, L500.4100 #### [facility] [address] [place], [address] Glucose [Mass/Vol] 106 mg/dL High 70-99 [facility] Comment on above: Performed By: #### L 506.1000, L500.4050, L100.0100, L500.4100 #### [facility] [address] [place], [address] Potassium [Moles/Vol] 4.0 mmol/L Normal 3.3-5.1 [facility] Comment on above: Performed By: #### L 506.1000, L500.4050, L100.0100, L500.4100 #### [facility] [address] [place], [address] Sodium [Moles/Vol] 138 mmol/L Normal 133-145 [facility] Comment on above: Performed By: #### L 506.1000, L500.4050, L100.0100, L500.4100 #### [facility] [address] [place], [address] Urea nitrogen [Mass/Vol] 12 mg/dL Normal 4-19 [facility] Comment on above: Performed By: #### L 506.1000, L500.4050, L100.0100, L500.4100 #### [facility] [address] [place], [address] Basophil percentageOrdered B y: Carlton Vasquez on 07-05-2025 Basophils/100 WBC (Bld) 1.5 % High 0-1 [facility] CBC W/Diff, Automatedon Absolute Lymph 1.62 X10 3/uL Normal 0.83-4.51 [facility] Comment on above: Performed By: #### L 506.1000, L500.4050, L100.0100, L500.4100 #### [facility] [address] [place], [address] Absolute Neut 2.5 X10 3/uL Normal 2.0-7.7 [facility] Comment on above: Performed By: #### L 506.1000, L500.4050, L100.0100, L500.4100 #### [facility] [address] [place], [address] Basophils/100 WBC (Bld) 1.5 % High 0-1 [facility] Comment on above: Performed By: #### L 506.1000, L500.4050, L100.0100, L500.4100 #### [facility] [address] [place], [address] Eosinophils/100 WBC (Bld) 0.8 % Normal 0-5 [facility] Comment on above: Performed By: #### L 506.1000, L500.4050, L100.0100, L500.4100 #### [facility] [address] [place], [address] Erythrocyte distribution width (RBC) [Ratio] 12.7 % Normal 11.6-14.6 [facility] Comment on above: Performed By: #### L 506.1000, L500.4050, L100.0100, L500.4100 #### [facility] [address] [place], [address] Hematocrit (Bld) [Volume fraction] 37.6 % Normal 37-47 [facility] Comment on above: Performed By: #### L 506.1000, L500.4050, L100.0100, L500.4100 #### [facility] [address] [place], [address] Hemoglobin (Bld) [Mass/Vol] 12.9 g/dL Normal 12.0-15.0 [facility] Comment on above: Performed By: #### L 506.1000, L500.4050, L100.0100, L500.4100 #### [facility] [address] [place], [address] IG% 0.800 Normal 0.0-0.9 [facility] Comment on above: Result Comment: IG% - Immature Granulocytes (promyelocytes, myelocytes and metamyelocytes) > 1% indicates that a LEFT SHIFT is Present. Performed By: #### L 506.1000, L500.4050, L100.0100, L500.4100 #### [facility] [address] [place], [address] Lymphocytes/100 WBC (Bld) 34.2 % Normal 19-41 [facility] Comment on above: Performed By: #### L 506.1000, L500.4050, L100.0100, L500.4100 #### [facility] [address] [place], [address] MCH (RBC) [Entitic mass] 32.4 pg High 27.0-32.0 [facility] Comment on above: Performed By: #### L 506.1000, L500.4050, L100.0100, L500.4100 #### [facility] [address] [place], [address] MCHC (RBC) [Mass/Vol] 34.3 g/dL Normal 32-36 [facility] Comment on above: Performed By: #### L 506.1000, L500.4050, L100.0100, L500.4100 #### [facility] [address] [place], [address] MCV (RBC) [Entitic vol] 94.5 fL Normal 81-99 [facility] Comment on above: Performed By: #### L 506.1000, L500.4050, L100.0100, L500.4100 #### [facility] [address] [place], [address] Monocytes/100 WBC (Bld) 9.9 % Normal 0-10 [facility] Comment on above: Performed By: #### L 506.1000, L500.4050, L100.0100, L500.4100 #### [facility] [address] [place], [address] Neutrophils/100 WBC (Bld) 52.8 % Normal 47-70 [facility] Comment on above: Performed By: #### L 506.1000, L500.4050, L100.0100, L500.4100 #### [facility] [address] [place], [address] Nucleated RBC (Bld) [#/Vol] 0 10*3/uL Normal 0-5 [facility] Comment on above: Performed By: #### L 506.1000, L500.4050, L100.0100, L500.4100 #### [facility] [address] [place], [address] Platelet mean volume (Bld) [Entitic vol] 9.8 fL Normal 6.2-12.0 [facility] Comment on above: Performed By: #### L 506.1000, L500.4050, L100.0100, L500.4100 #### [facility] [address] [place], [address] Platelets (Bld) [#/Vol] 253 10*3/uL Normal 150-450 [facility] Comment on above: Performed By: #### L 506.1000, L500.4050, L100.0100, L500.4100 #### [facility] [address] [place], [address] RBC (Bld) [#/Vol] 3.98 10*6/uL Low 4.2-5.4 [facility] Comment on above: Performed By: #### L 506.1000, L500.4050, L100.0100, L500.4100 #### [facility] [address] [place], [address] RDW SD 44.2 fl High 35.1-43.9 [facility] Comment on above: Performed By: #### L 506.1000, L500.4050, L100.0100, L500.4100 #### [facility] [address] [place], [address] WBC (Bld) [#/Vol] 4.7 10*3/uL Normal 4.4-11.0 [facility] Comment on above: Performed By: #### L 506.1000, L500.4050, L100.0100, L500.4100 #### [facility] [address] [place], [address] Carbon dioxide, total [Moles /volume] in Central venous bloodOrdered By: Carlton Vasquez on 07-05-2025 CO2 [Moles/Vol] 23.5 mmol/L 21.0-32.0 [facility] Chest 1 View (Portable)on Chest 1 View (Portable) [facility] Imaging Services [address] [place] [address] Chest 1 View (Portable) MR#: [id number] Acct: [id number] Name: BALDO GRANT Rep #: [id number] : 1940 F 85 From: Kenn Trujillo MD PCP: Dr. Rupali Cline, DO Status: [facility] ER Study: Chest 1 View (Portable) Date of Exam: 07/05/25 Exam# [id number] Ordering Dr: Carlton Vasquez MD PROCEDURE: CHEST 1 VIEW (PORTABLE) 07/05/2025 REASON FOR EXAM: CHEST PAIN TECHNIQUE: Frontal view of the chest. COMPARISON: None. FINDINGS: Hardware and support lines: None. Heart: Heart upper limits of normal size. Lungs: Negative for infiltrates, or pulmonary edema. Pleura: No pleural thickening. No pleural effusion. Mediastinum and aorta: Negative for hilar adenopathy. Mildly tortuous thoracic aorta. Bones: Slight curvature thoracic spine convex left. Age-appropriate degenerative changes of the spine. Other: Remainder of the exam negative. RAD/Chest 1 View (Portable) IMPRESSION: Negative for acute cardiopulmonary disease. Reading Location: [id number] CC: Dr. Carlton Vasquez MD; Dr. Rupali Cline DO Cardboard Inserter: Signed Normal [facility] Chloride assayOrdered By: Mallory Vasquez on 07-05-2025 Chloride [Moles/Vol] 105 mmol/L 98-108 [facility] D-Dimer Quantitative (DVT/PE )on 07-05-2025 D-DIMER QUANT 0.72 FEU/ug/m Invalid Interpretation Code 0.27-0.49 [facility] Comment on above: Result Comment: D-Di shireen ELEVATED (>0.49): Additional studies and clinical assessments are indicated to conclude diagnosis of: Deep Vein Thrombosis (DVT) or Pulmonary Embolism (PE) CRITICAL VALUE CALLED TO WILLY LIRIANO 07/05/25 1026 Jaciel Olivares. RESULTS READ BACK BY SAME. Performed By: #### L 300.8000 #### [facility] [address] [facility] [place], [address] Emergency Department Summary on 07-05-2025 Emergency Department Summary [facility] Medical Records Department [address] [place] [address] Emergency Department Summary 07/05/25 MR#: [id number] Acct: [id number] Name: BALDO GRANT Rep #: [id number] : 1940 85 From: Carlton Vasquez MD PCP: Dr. Rupali Cline DO Status:REG ER Location: ED HPI History of Present Illness Chief Complaint: Syncope Informant: patient and family (x3) Narrative Narrative: 85-year-old female presenting after a syncopal episode. She states she had gotten up and started making that bad and started feeling nauseated and not well. She did not have any other symptoms. She was heading for the bathroom, she started to feel lightheaded and more nauseated, called for her who found her passed out on the floor, she was already sitting before she lost consciousness and did not injure herself or fall down the stairs where she was at the top of. She had no other prodromal symptoms, just lightheadedness and nausea; no dyspnea, chest discomfort, headache, lateralizing neurologic symptoms. She feels better now just tired and nauseated. She has a history of migraines that she takes a preventative monthly injection for, and musculoskeletal low back pain that hurts more when she is on her feet for a long time and when she does a lot of bending over and lifting. That is not bothering her right now and she does not have a headache right now. Last time she had a syncopal episode was yesterday, it was after she urinated, she denies bearing down or having a bowel movement, she had already been feeling nauseated for 20 or 30 minutes prior to that, she states she was washing her hands and was feeling lightheaded during all of that and woke up on the floor. The rest of that day she was fatigued, but then she was ambulatory and doing things and otherwise fine yesterday except for having a mild headache that eventually went away. Has been drinking plenty of fluids recently, has not eaten much this past day after this other more recent syncopal episode and not feeling well since. Family states she tends to pass out easily especially after bowel movements, but this is the first time she has ever had 2 unexplained episodes of syncope. Today when family was able to get to her and check her pulse with a home pulse oximeter, she was in the 60s. She was awake at that time. [facility] Medical History Osteopenia Hyperlipidemia Migraines Back problem Arthritis Seasonal allergies Hypertension Home Medications ???Medication ???Instructions ???Recorded ???Last Taken ???Type biotin 5 mg tablet 3 mg PO BID 07/18/19 Unknown Histo ry calcium 600 mg (as 1 ea PO DAILY supplement 07/18/19 Unknown History carbonate)-vitamin D3 10 mcg (400 unit) tablet ezetimibe 10 mg tablet 10 mg PO DAILY cholesterol 9 Unknown History yhqjmlnn-bvb-mwlx-FA-Ca carb-vit K 1 ea PO DAILY vitamin 07/18/19 U nknown History 18 mg iron-400 mcg-500 mg tablet pramipexole 0.25 mg tablet 0.25 mg PO QHS restless legs 07/18 Unknown History sumatriptan succinate 50 mg tablet 25 mg PO PRN PRN cluster headach e 07/18/19 Unknown History fremanezumab-vfrm 225 mg/1.5 mL 225 mg subcut Q30D 09/05/21 Unknow n History subcutaneous auto-injector (Ajovy) lisinopril 5 mg tablet 5 mg PO DAILY 09/05/21 Unknown His tory pregabalin 150 mg capsule 150 mg PO DAILY RLS 09/05/21 Unkno wn History Allergy/AdvReac Type Severity Reaction Status Date / Time No Known Allergies Allergy Verified 07/05/25 09:45 Family History Father Myocardial infarction Brother Pancreatic cancer Sister Lung cancer Surgical History H/O breast biopsy S/P LEEP (loop electrosurgical excision procedure) H/O tubal ligation Social History Smoking Status: Never smoker ROS ROS ED Constitutional Constitutional ED: Denies chills or fever(s) Eyes Eyes: Denies change in vision or diplopia ENT ENT ED: Denies rhinorrhea or sore throat Cardiovascular Cardiovascular: Reports fatigue, lightheadedness, nausea and syncope; Denies arrhythmia on telemetry, chest pain, leg edema, orthostatic symptoms or palpitations Respiratory/Chest Respiratory/Chest: Denies cough or dyspnea Gastrointestinal Gastrointestinal: Reports nausea; Denies abdominal pain, diarrhea or vomiting Genitourinary Genitourinary ED: Denies dysuria or hematuria Musculoskeletal Musculoskeletal: Denies back pain or neck pain Integumentary Denies abscess or rash Neurologic Neurologic: Denies headache(s), paresthesias or weakness Psychiatric Psychiatric: Denies anxiety or suicidal thoughts EXAM Physical Exam (more content not included)... Normal [facility] Eosinophil percentageOrdered By: Carlton Vasquez on 07-05-2025 Eosinophils/100 WBC (Bld) 0.8 % 0-5 [facility] Erythrocyte distribution wid th ratioOrdered By: Carlton Vasquez on 07-05-2025 Erythrocyte distribution width (RBC) [Ratio] 12.7 % 11.6-14.6 [facility] Erythrocyte distribution wid th standard deviationOrdered By: Carlton Vasquez on 07-05-2025 Erythrocyte distribution width (RBC) [Ratio] 44.2 fl High 35.1-43.9 [facility] Glomerular filtration rate ( GFR) estimation/1.73 sq m using serum, plasma, or whole bOrdered By: Carlton Vasquez on 07-05-2025 GFR/1.73 sq M.predicted among non-blacks MDRD (S/P/Bld) [Vol rate/Area] 78 mL/min/{1.73_m2} >60 [facility] Comment on above: mL/min/1.73m2 CKD-EP I Creatinine Equation (2020) Hematocrit Auto (Bld) [Volum e fraction]Ordered By: Carlton Vasquez on 07-05-2025 Hematocrit (Bld) [Volume fraction] 37.6 % 37-47 [facility] Hemoglobin measurementOrdere d By: Carlton Vasquez on 07-05-2025 Hemoglobin (Bld) [Mass/Vol] 12.9 g/dL 12.0-15.0 [facility] Immature granulocytes/100 WB C Auto (Bld)Ordered By: Carlton Vasquez on 07-05-2025 Immature granulocytes/100 WBC (Bld) 0.800 % 0.0-0.9 [facility] Comment on above: IG% - Immature Granu locytes (promyelocytes, myelocytes and metamyelocytes) > 1% indicates that a LEFT SHIFT is Present. L501.4021on 07-05-2025 Trop T High Sen 9 ng/L Normal <=14 [facility] Comment on above: Performed By: #### L 506.1000, L500.4050, L100.0100, L500.4100 #### [facility] [address] [place], [place] [address]alda. [place], [place], [id number] MCV (mean corpuscular volume ) determinationOrdered By: Carlton Vasquez on 07-05-2025 MCV (RBC) [Entitic vol] 94.5 fL 81-99 [facility] Mean corpuscular hemoglobin (MCH) determinationOrdered By: Carlton Vasquez on 07-05-2025 MCH (RBC) [Entitic mass] 32.4 pg High 27.0-32.0 [facility] Mean corpuscular hemoglobin concentration (MCHC) determinationOrdered By: Carlton Vasquez on 07-05-2025 MCHC (RBC) [Mass/Vol] 34.3 g/dL 32-36 [facility] Mean platelet volume determi nationOrdered By: Carlton Vasquez on 07-05-2025 Platelet mean volume (Bld) [Entitic vol] 9.8 fL 6.2-12.0 [facility] Monocyte percentageOrdered B y: Carlton Vasquez on 07-05-2025 Monocytes/100 WBC (Bld) 9.9 % 0-10 [facility] Neutrophil percentageOrdered By: Carlton Vasquez on 07-05-2025 Neutrophils/100 WBC (Bld) 52.8 % 47-70 [facility] Nucleated red blood cell per centageOrdered By: Carlton Vasquez on 07-05-2025 Nucleated RBC/100 WBC (Bld) [Ratio] 0 % 0-5 [facility] Platelet countOrdered By: Mallory Vasquez on 07-05-2025 Platelets (Bld) [#/Vol] 253 10*3/uL 150-450 [facility] Potassium measurement (mass/ volume)Ordered By: Carlton Vasquez on 07-05-2025 Potassium (Unsp spec) [Mass/Vol] 4.0 mmol/L 3.3-5.1 [facility] RBC Auto (Bld) [#/Vol]Ordere d By: Carlton Vasquez on 07-05-2025 RBC (Bld) [#/Vol] 3.98 10*6/uL Low 4.2-5.4 [facility] Serum creatinine measurement (mass/volume)Ordered By: Carlotn Vasquez on 07-05-2025 Creatinine [Mass/Vol] 0.76 mg/dL 0.70-1.20 [facility] Serum glucose measurement (m ass/volume)Ordered By: Carlton Vasquez on 07-05-2025 Glucose [Mass/Vol] 106 mg/dL High 70-99 [facility] Serum or plasma calcium jairo urement (mass/volume)Ordered By: Carlton Vasquez on 07-05-2025 Calcium [Mass/Vol] 9.1 mg/dL 7.6-11.0 [facility] Serum or plasma urea nitroge n measurement (mass/volume)Ordered By: Carlton Vasquez on 07-05-2025 Urea nitrogen [Mass/Vol] 12 mg/dL 4-19 [facility] Sodium levelOrdered By: George Vasquez on 07-05-2025 Sodium [Moles/Vol] 138 mmol/L 133-145 [facility] Troponin T HS 2 HRon 025 Trop T High Sen 9 ng/L Normal <=14 [facility] Comment on above: Performed By: #### L 499.0042 #### [facility] [address] [place], [place], [id number] Troponin T HS 4 HRon 025 Trop T High Sen Normal <=14 [facility] Comment on above: Result Comment: DEP FROM ED Performed By: #### L 499.0043 #### [facility] [address] [place], [place], [address] Troponin T.cardiac [Mass/vol ume] in Serum or Plasma by High sensitivity methodOrdered By: Carlton Vasquez on 07-05-2025 Troponin T.cardiac High sensitivity method [Mass/Vol] 9 ng/L <14 [facility] Troponin T.cardiac High sensitivity method [Mass/Vol] 9 ng/L <14 [facility] White blood cell (WBC) count Ordered By: Carlton Vasquez on 07-05-2025 WBC (Bld) [#/Vol] 4.7 10*3/uL 4.4-11.0 [facility] CNPMichaela 06-12-2025 CNPN Telephone ([place]) -------- BALDO GRANT ([id number]) 1940 F Date Time Provider Department 06/12/25 [...] 1 tab in the evening. Pt asking BritniAgustin Brown to advise. Jacque Taylor LPN 06/15/2025 [...] Encounter Status:Closed by [place] BROWN on 06/17/25 [facility] Demetrius 05-18-2025 BRITTNEY Telephone (SLEWST) -------- BALDO GRANT ([id number]) 1940 F Date Time Provider Department 05/18/25 [place] BROWN During your visit today, we recorded the following information about you: Indiana Brown APRN.BRITTNEY 05/18/2025 10:33 AM Signed Please print appeal letter so I can sign for [facility]ra [facility].Jacque Salcedo LPN 05/18/2025 4:25 PM Signed Appeal letter faxed to [employer] Appeals Team. Jacque Taylor LPN Allergies [...] Encounter Status:Closed by JACQUE TAYLOR on 05/18/25 [facility] Demetrius 02-09-2025 CNPN Telephone (MNOPRX) -------- BALDO GRANT ([id number]) 1940 F Date Time Provider Department 02/09/25 [...] questions relating to this submission, please contact [facility] at [phone] Emely Ferro RN 02/11/2025 3:46 PM Signed [employer] approved 10/29/2024-02/10/2026 Patient notified Allergies As of Date: 02/09/2025 Noted Allergy Reaction ATORVASTATIN 05/29/2016 14 - Other: See Comments PRAVASTATIN 05/29/2016 14 - Other: See Comments Date Reviewed: 11/17/2024 Reviewed by: Mack Mills LPN - Fully Assessed Reason for Visit: Insurance Authorization [[id number]] AIMOVIG [Other] Prescriptions as of 02/11/2025 - [...] Status:Closed by ENMANUEL PHIPPS on 02/09/25 Normal [facility] DARBY SCREENING W TOMOon 02-03 DARBY SCREENING W MURTAZA * * *Final Report* * * DATE OF EXAM: Feb 03 2025 11:48AM WRW 0582 - DARBY SCREENING W MURTAZA / PROCEDURE REASON: multiple diagnoses * * * * Physician Interpretation * * * * RESULT: [address] [address] [place] [address] #[id number] - DARBY SCREENING W MURTAZA HISTORY: 84 [...] Lisa Granados M.D. Electronically signed on: 02/04/2025 Cardboard Inserter: JAZZ Transcribe Date/Time: Feb 03 2025 11:16A Dictated by: LISA GRANADOS MD This examination was interpreted and the report reviewed and electronically signed by: LISA GRANADOS MD on Feb 04 2025 1:13PM EST [id number] Normal [facility] CNOVon 11-17-2024 CNOV Office Visit (SLEWST ) -------- BALDO GRANT ([id number]) 1940 F Date Time Provider Department 11/17/24 11:30 AM [place] BROWN During your visit today, we recorded the following information about you: Pulse Blood pressure Weight 89/minute 126/78 73.3 kg Indiana Brown APRN.CNP 11/17/2024 12:15 PM Signed [facility] Follow up/ Established patient [...] for snoring and witnessed apneas Indiana Brown APRN.[employer]OR [employer] Here for follow up for RLS New [...] due to drowsy drivin 06/09/2024 09/16/2024 11/16/2024 [place] Sleepiness Scale Score 1 (No clinically significant [...] mg qd Latest Reference Range AND Units 05/20/24 10:12 Ferritin 14.7 - 205.1 ng/mL 128.0 [...] General appeara (more content not included)... Normal [facility] Bacteria Ur Culton 4 Bacteria identified Cx Nom (U) ORGANISM ID: 1 10,000 -<50,000 CFU/ml Normal urogenital bobo Normal [facility] Comment on above: Performed By: #### 6 30-4 ####[facility]CL[facility] [id number] [address] CNOVon 09-17-2024 CNOV Office Visit (OBGYWM ) -------- BALDO GRANT ([id number]) 1940 F Date Time Provider Department 09/17/24 [...] Date Reviewed: 09/17/2024 Reviewed by: Indiana Brown APRN.[employer] - Fully Assessed Primary Visit Diagnosis:Urinary urgency [R39.15] Other Visit Diagnosis:Urinary frequency [R35.0] Order(s):URINE CULTURE [SQURCUL] Order #: [id number]. #:[id number] Prescriptions as of 09/17/2024 - gabapentin (NEURONTIN) [...] Encounter Status:Closed by LAYLA CHERRY on 09/17/24 Normal [facility] CNOV Office Visit (SLEWST ) -------- BALDO GRANT ([id number]) 1940 F Date Time Provider Department 09/17/24 11:00 AM [place] BROWN During your visit today, we recorded the following information about you: Pulse Respiration Blood pressure Weight 86/minute 16/minute 159/89 74.7 kg Indiana Brown APRN.CNP 09/17/2024 2:43 PM Signed [facility] Follow up/ Established patient [...] daughter is Conchita Vasquez who works in [employer]--and has told her she likely has RAMIRO. [...] due to drowsy drivin 03/13/2024 06/09/2024 09/16/2024 [place] Sleepiness Scale Score 3 (No clinically significant [...] alert and (more content not included)... Normal [facility] BALDO GRANT ([id number]) 1940 F Date Time Provider Department 09/17/24 [...] miserable with her symptoms. JOEY Rodríguez Courtney, APRN.IHSAN 09/17/2024 3:56 PM Signed Yes, will send [...] LAYLA CHERRY Pharmacy Information Pharmacy Address Telephone [facility]/pharmacy #[id number] [place] [id number] Leigha Casarez RN Allergies As of Date: 09/17/2024 Noted Allergy Reaction ATORVASTATIN 05/29/2016 14 - Other: See Comments PRAVASTATIN 05/29/2016 14 - Other: See Comments Date Reviewed: 09/17/2024 Reviewed by: Indiana Brown APRN.[employer] - Fully Assessed Reason for Visit: Results [...] Encounter Status:Closed by LAYLA CHERRY on 09/17/24 [facility] DONAVON Telephone (SARAH) -------- BALDO GRANT ([id number]) 1940 F Date Time Provider Department 09/17/24 [place] BROWN During your visit today, we recorded the following information about you: Indiana Brown APRN.BRITTNEY 09/17/2024 4:30 PM Signed Is there any update on her Nidra appeal? Thanks, Indiana Brown APRN.Analilia Stanton OCCA 09/18/2024 1:38 PM Signed Confidential email sent to Nidra medical claims representative to check on status of appeal. Analilia Escobarella SALVADORDarren Brynn MurilloianSALVAODRDarren 09/22/2024 7:24 AM Signed Email response has not been received as of this time. Analilia Shawnella MARIBEL LarryDevonMackNORMA 09/24/2024 2:49 PM Signed No email response received regarding Nidra device. Mack Mills LPN September 24, 2024 2:49 PM Brynn MurilloianSALVADORDarren 10/02/2024 11:34 AM Signed Additional confidential email sent to medical claims representative to inquire further as office has not yet received a response. Analilia Escobarella SALVADORAnalilia FernandezSALVADORDarren 10/02/2024 3:27 PM Signed Received response that Nidra was denied. Office should be receiving appeal letter within the next week or so. MARIBEL Rosales Rebecca, APRN.BRITTNEY 10/13/2024 9:46 AM Signed Noted thanks, please let pt know. Indiana Brown APRN.Anaillia Stanton OCCA 10/13/2024 10:50 AM Signed TC to patient, no answer. Left VM to return call. MARIBEL Rosales Krystle, RN 10/13/2024 3:01 PM Signed Patient returns call and message below reviewed with verbalized understanding. JOEY Miles Gillian MARIBEL 11/03/2024 11:35 AM Signed Appeal received, signed by provider, and faxed back with update OV note from 09/17. MARIBEL Rosales Allergies As of Date: 09/17/2024 Noted Allergy Reaction ATORVASTATIN 05/29/2016 14 - Other: See Comments PRAVASTATIN 05/29/2016 14 - Other: See Comments Date Reviewed: 09/17/2024 Reviewed by: Indiana Brown APRN.BRITTNEY - Fully Assessed Prescriptions as of 11/03/2024 [...] Status:Closed by MACK MILLS on 09/24/24 [facility] BALDO GRANT ([id number]) 1940 F Date Time Provider Department 09/17/24 [place] AUGUSTE OBGYWM During your visit today, we recorded the following information about you: Kourtnye Gutierrez, RN 09/17/2024 8:22 AM Signed Patient calling c/o UTI symptoms. Having urinary urgency, frequency, lower back pain and dysuria. Stated that she gets these frequently in the past and asking for lab orders to be placed. She has an appointment at 11am at the [facility] with neuro and would like to stop at the lab then. Orders pending if okay or does she need an appointment? JOEY Rodríguez Rebecca L, MD 09/17/2024 9:06 AM Signed needs appointment for rx. Can stop in here after and see CP for visit. MD Marialuisa Viveros Lindsey, RN 09/17/2024 9:19 AM Signed Patient notified and voiced understanding. Appointment scheduled. SVITLANA. Leigha Casarez RN Allergies As of Date: [...] Status:Closed by LEIGHA CASAREZ on 09/17/24 Normal [facility] CBC W/Diff, Automatedon 10-2 Absolute Lymph 1.56 X10 3/uL Normal 0.83-4.51 [facility] Comment on above: Performed By: #### L 506.1000, L500.4050, L100.0100, L500.4100 #### [facility] [address] [place], [address] Absolute Neut 2.2 X10 3/uL Normal 2.0-7.7 [facility] Comment on above: Performed By: #### L 506.1000, L500.4050, L100.0100, L500.4100 #### [facility] [address] [place], [address] Basophils/100 WBC (Bld) 1.8 % High 0-1 [facility] Comment on above: Performed By: #### L 506.1000, L500.4050, L100.0100, L500.4100 #### [facility] [address] [place], [address] Eosinophils/100 WBC (Bld) 2.0 % Normal 0-5 [facility] Comment on above: Performed By: #### L 506.1000, L500.4050, L100.0100, L500.4100 #### [facility] [address] [place], [address] Erythrocyte distribution width (RBC) [Ratio] 12.6 % Normal 11.6-14.6 [facility] Comment on above: Performed By: #### L 506.1000, L500.4050, L100.0100, L500.4100 #### [facility] [address] [place], [address] Hematocrit (Bld) [Volume fraction] 37.6 % Normal 37-47 [facility] Comment on above: Performed By: #### L 506.1000, L500.4050, L100.0100, L500.4100 #### [facility] [address] [place], [address] Hemoglobin (Bld) [Mass/Vol] 12.6 g/dL Normal 12.0-15.0 [facility] Comment on above: Performed By: #### L 506.1000, L500.4050, L100.0100, L500.4100 #### [facility] [address] [place], [address] IG% 0.400 Normal 0.0-0.9 [facility] Comment on above: Result Comment: IG% - Immature Granulocytes (promyelocytes, myelocytes and metamyelocytes) > 1% indicates that a LEFT SHIFT is Present. Performed By: #### L 506.1000, L500.4050, L100.0100, L500.4100 #### [facility] [address] [place], [address] Lymphocytes/100 WBC (Bld) 34.6 % Normal 19-41 [facility] Comment on above: Performed By: #### L 506.1000, L500.4050, L100.0100, L500.4100 #### [facility] [address] [place], [address] MCH (RBC) [Entitic mass] 32.4 pg High 27.0-32.0 [facility] Comment on above: Performed By: #### L 506.1000, L500.4050, L100.0100, L500.4100 #### [facility] [address] [place], [address] MCHC (RBC) [Mass/Vol] 33.5 g/dL Normal 32-36 [facility] Comment on above: Performed By: #### L 506.1000, L500.4050, L100.0100, L500.4100 #### [facility] [address] [place], [address] MCV (RBC) [Entitic vol] 96.7 fL Normal 81-99 [facility] Comment on above: Performed By: #### L 506.1000, L500.4050, L100.0100, L500.4100 #### [facility] [address] [place], [address] Monocytes/100 WBC (Bld) 11.5 % High 0-10 [facility] Comment on above: Performed By: #### L 506.1000, L500.4050, L100.0100, L500.4100 #### [facility] [address] [place], [address] Neutrophils/100 WBC (Bld) 49.7 % Normal 47-70 [facility] Comment on above: Performed By: #### L 506.1000, L500.4050, L100.0100, L500.4100 #### [facility] [address] [place], [address] Nucleated RBC (Bld) [#/Vol] 0 10*3/uL Normal 0-5 [facility] Comment on above: Performed By: #### L 506.1000, L500.4050, L100.0100, L500.4100 #### [facility] [address] [place], [address] Platelet mean volume (Bld) [Entitic vol] 10.3 fL Normal 6.2-12.0 [facility] Comment on above: Performed By: #### L 506.1000, L500.4050, L100.0100, L500.4100 #### [facility] [address] [place], [address] Platelets (Bld) [#/Vol] 248 10*3/uL Normal 150-450 [facility] Comment on above: Performed By: #### L 506.1000, L500.4050, L100.0100, L500.4100 #### [facility] [address] [place], [address] RBC (Bld) [#/Vol] 3.89 10*6/uL Low 4.2-5.4 [facility] Comment on above: Performed By: #### L 506.1000, L500.4050, L100.0100, L500.4100 #### [facility] [address] [place], [address] RDW SD 44.9 fl High 35.1-43.9 [facility] Comment on above: Performed By: #### L 506.1000, L500.4050, L100.0100, L500.4100 #### [facility] [address] [place], [address] WBC (Bld) [#/Vol] 4.5 10*3/uL Normal 4.4-11.0 [facility] Comment on above: Performed By: #### L 506.1000, L500.4050, L100.0100, L500.4100 #### [facility] [address] [place], [address] Comprehensive Metabolic Prof [facility] 08-21-2024 Albumin [Mass/Vol] 3.6 g/dL Normal 3.2-5.0 [facility] Comment on above: Performed By: #### L 506.1000, L500.4050, L100.0100, L500.4100 #### [facility] [address] [place], [address] Albumin/Globulin [Mass ratio] 1.1 {ratio} Normal 0.9-2.4 [facility] Comment on above: Performed By: #### L 506.1000, L500.4050, L100.0100, L500.4100 #### [facility] [address] [place], [address] ALK P 67 U/L Normal 45-117 [facility] Comment on above: Performed By: #### L 506.1000, L500.4050, L100.0100, L500.4100 #### [facility] [address] [place], [address] ALT [Catalytic activity/Vol] 30 U/L Normal 13-56 [facility] Comment on above: Performed By: #### L 506.1000, L500.4050, L100.0100, L500.4100 #### [facility] [address] [place], [address] AST [Catalytic activity/Vol] 15 U/L Normal 15-37 [facility] Comment on above: Performed By: #### L 506.1000, L500.4050, L100.0100, L500.4100 #### [facility] [address] [place], [address] Bilirubin [Mass/Vol] 0.30 mg/dL Normal 0.20-1.00 [facility] Comment on above: Result Comment: For patients on eltrombopag therapy, use of Dimension Stanton TBIL is not recommended. Performed By: #### L 506.1000, L500.4050, L100.0100, L500.4100 #### [facility] [address] [place], [address] BUN/CRE 22.8 RATIO High 10-20 [facility] Comment on above: Performed By: #### L 506.1000, L500.4050, L100.0100, L500.4100 #### [facility] [address] [place], [address] CA,Total 9.4 mg/dL Normal 8.5-10.1 [facility] Comment on above: Performed By: #### L 506.1000, L500.4050, L100.0100, L500.4100 #### [facility] [address] [place], [address] Chloride [Moles/Vol] 109 mmol/L High 98-107 [facility] Comment on above: Performed By: #### L 506.1000, L500.4050, L100.0100, L500.4100 #### [facility] [address] [place], [address] CO2 [Moles/Vol] 27.0 mmol/L Normal 21.0-32.0 [facility] Comment on above: Performed By: #### L 506.1000, L500.4050, L100.0100, L500.4100 #### [facility] [address] [place], [address] Creatinine [Mass/Vol] 0.79 mg/dL Normal 0.55-1.02 [facility] Comment on above: Result Comment: The validity of the calculated GFR GFRAA in patients over 70 years has not been determined. Clinical correlation is essential. Performed By: #### L 506.1000, L500.4050, L100.0100, L500.4100 #### [facility] [address] [place], [address] EST GFR - AA 90 mL/min Normal >60 [facility] Comment on above: Result Comment: Afri can English GFR Calc Performed By: #### L 506.1000, L500.4050, L100.0100, L500.4100 #### [facility] [address] [place], [address] GAP 5 Normal 5-15 [facility] Comment on above: Performed By: #### L 506.1000, L500.4050, L100.0100, L500.4100 #### [facility] [address] [place], [address] GFR/1.73 sq M.predicted among non-blacks MDRD (S/P/Bld) [Vol rate/Area] 74 mL/min/{1.73_m2} Normal >60 [facility] Comment on above: Result Comment: Non- GFR Calc Performed By: #### L 506.1000, L500.4050, L100.0100, L500.4100 #### [facility] [address] [place], [address] Globulin (S) [Mass/Vol] 3.4 g/dL Normal 2.2-4.2 [facility] Comment on above: Performed By: #### L 506.1000, L500.4050, L100.0100, L500.4100 #### [facility] [address] [place], [address] Glucose [Mass/Vol] 95 mg/dL Normal 74-106 [facility] Comment on above: Performed By: #### L 506.1000, L500.4050, L100.0100, L500.4100 #### [facility] [address] [place], [address] Potassium [Moles/Vol] 4.7 mmol/L Normal 3.5-5.1 [facility] Comment on above: Performed By: #### L 506.1000, L500.4050, L100.0100, L500.4100 #### [facility] [address] [place], [address] Sodium [Moles/Vol] 140 mmol/L Normal 136-145 [facility] Comment on above: Performed By: #### L 506.1000, L500.4050, L100.0100, L500.4100 #### [facility] [address] [place], [address] T PROT 7.0 g/dL Normal 6.4-8.2 [facility] Comment on above: Performed By: #### L 506.1000, L500.4050, L100.0100, L500.4100 #### [facility] [address] [place], [address] Urea nitrogen [Mass/Vol] 18 mg/dL Normal 7-18 [facility] Comment on above: Performed By: #### L 506.1000, L500.4050, L100.0100, L500.4100 #### [facility] [address] [place], [address] Lipid Profileon 08-21-2024 Cholesterol [Mass/Vol] 276 mg/dL High 200 [facility] Comment on above: Result Comment: <200 mg/dL Desirable 200-240 mg/dL Borderline >240 mg/dL High Risk Performed By: #### L 506.1000, L500.4050, L100.0100, L500.4100 #### [facility] [address] [place], [address] Cholesterol in HDL [Mass/Vol] 54 mg/dL Normal [facility] Comment on above: Result Comment: The drugs N-Acetylcysteine and Metamizole may falsely depress this assay. Reference Range HDL <40 mg/dL Low HDL Cholesterol HDL >or= 60 mg/dL High HDL Cholesterol Performed By: #### L 506.1000, L500.4050, L100.0100, L500.4100 #### [facility] [address] [place], [address] Cholesterol in LDL [Mass/Vol] 182 mg/dL High 0-130 [facility] Comment on above: Performed By: #### L 506.1000, L500.4050, L100.0100, L500.4100 #### [facility] [address] [place], [address] Cholesterol in VLDL [Mass/Vol] 40 mg/dL Normal 5-40 [facility] Comment on above: Performed By: #### L 506.1000, L500.4050, L100.0100, L500.4100 #### [facility] [address] [place], [id number] Triglyceride [Mass/Vol] 200 mg/dL High [facility] Comment on above: Result Comment: The drugs N-Acetylcysteine and Metamizole may falsely depress this assay. Serum Triglycerides Reference Interval Normal <150 mg/dL Borderline high 150 - 199 mg/dL High 200 - 499 mg/dL Very High > or = 500 mg/dL Performed By: #### L 506.1000, L500.4050, L100.0100, L500.4100 #### [facility] [address] [place], [address] Vitamin D,25 Hydroxyon 08-21 Vitamin D 25-OH 23.0 ng/mL Normal [facility] Comment on above: Result Comment: Ramandeep min D 25(OH) Status Range Deficiency <20 ng/mL (50nmol/L) Insufficiency 20 - 30 ng/mL (50 - 75 nmol/L) Sufficiency 30 - 100 ng/mL (75 - 250 nmol/L) Toxicity >100 ng/mL (>250 nmol/L) Performed By: #### L 506.1000, L500.4050, L100.0100, L500.4100 #### [facility] [address] [place], [id number] CNOVon 07-22-2024 CNOV Office Visit (OBGYWM ) -------- BALDO GRANT ([id number]) 1940 F Date Time Provider Department 07/22/24 8:40 AM [place] [facility] During your visit today, we recorded the following information about you: Blood pressure Weight Height 116/70 74.4 kg 1.556 m [place] Auguste MD 07/22/2024 9:08 AM Signed José Miguel is a 84 year old who presents for an annual gynecologic exam without science writer c/o.. Last Pap: 02/08/2011 normal HPV: 09/29/2005 negative History of abnormal pap: No Last mammogram: 2023 normal OB History T0 L4 SAB0 IAB0 Ectopic0 Multiple0 Live Births0 Proof Plate Maker History LMP: 10/29/1996, Postmenopausal Age at Menarche: Age at First : Age at Menopause: Proof Plate Maker History Comments: Sexual Activity: Yes; Male Contraception: [...] discussed with the Patient or Patient's Authorized Leather Etcher. As applicable, any other physician, advance practice provider, medical student, or other health professional student that will be observing or involved in the sensitive examination for educational or training purposes was discussed with the Patient or Authorized Leather Etcher. The Patient or Authorized Leather Etcher has agreed to proceed with the sensitive [...] external genitalia normal, normal Bartholin's glands, urethra, [place]'s glands, no vulvar lesions, physiologic discharge present, [...] for screening mammogram for breast cancer [Z12.31] Order(s):[facility] SCREENING W MURTAZA [[id number]] Order #: [id number] FUTURE Prescriptions as of 07/22/2024 - biotin [...] THERAPEUTIC MULTIVIT (more content not included)... Normal [facility] FERRITINon 03-17-2024 Ferritin [Mass/Vol] 128.0 ng/mL 14.7 - 205.1 ng/mL [facility] Ferritin [Mass/Vol]on 2023 Interpretation and review of laboratory results Normal [facility] Iron and Iron binding capaci ty panelon 03-17-2024 Interpretation and review of laboratory results Normal [facility] Iron [Mass/Vol] 135 ug/dL 41 - 186 ug/dL [facility] Iron binding capacity [Mass/Vol] 253 ug/dL 232 - 386 ug/dL [facility] Iron/TIBC [Molar ratio] 53.4 % 15.0 - 57.0 % [facility] Absolute lymphocyte countOrd ered By: Rupali Cline on 08-15-2023 Lymphocytes Auto (Unsp spec) [#/Vol] 1.68 10*3/uL 0.83-4.51 [facility] Basophil percentageOrdered B y: Rupali Cline on 08-15-2023 Basophils/100 WBC (Bld) 1.6 % 0-1 [facility] Bilirubin [Mass/Vol] 0.30 mg/dL 0.20-1.00 [facility] Comment on above: For patients on eltr ombopag therapy, use of Dimension Stanton TBIL is not recommended. Chloride [Moles/Vol] 110 mmol/L 98-107 [facility] Cholesterol [Mass/Vol] 238 mg/dL <200 [facility] Comment on above: <200 mg/dL Desirable 200-240 mg/dL Borderline >240 mg/dL High Risk Eosinophils/100 WBC (Bld) 2.9 % 0-5 [facility] Glucose [Mass/Vol] 99 mg/dL 74-106 [facility] Neutrophils (Bld) [#/Vol] 2.1 10*3/uL 2.0-7.7 [facility] Neutrophils/100 WBC (Bld) 47.2 % 47-70 [facility] Potassium [Moles/Vol] 4.6 mmol/L 3.5-5.1 [facility] Protein [Mass/Vol] 7.3 g/dL 6.4-8.2 [facility] Sodium [Moles/Vol] 141 mmol/L 136-145 [facility] Triglyceride [Mass/Vol] 172 mg/dL <199 [facility] Comment on above: The drugs N-Acetylcy steine and Metamizole may falsely depress this assay.Serum Triglycerides Reference Interval Normal <150 mg/dL Borderline high 150 - 199 mg/dL High 200 - 499 mg/dL Very High > or = 500 mg/dL WBC (Bld) [#/Vol] 4.5 10*3/uL 4.4-11.0 [facility] Blood erythrocytes count (nu mber/volume)Ordered By: Rupali Cline on 08-15-2023 RBC (Bld) [#/Vol] 4.01 10*6/uL 4.2-5.4 [facility] Blood hemoglobin measurement (mass/volume)Ordered By: Rupali Cline on 08-15-2023 Hemoglobin (Bld) [Mass/Vol] 12.7 g/dL 12.0-15.0 [facility] Blood lymphocytes/100 leukoc ytesOrdered By: Rupali Cline on 08-15-2023 Lymphocytes/100 WBC (Bld) 37.6 % 19-41 [facility] Blood monocytes/100 leukocyt esOrdered By: Rupali Cline on 08-15-2023 Monocytes/100 WBC (Bld) 10.5 % 0-10 [facility] Blood platelet mean volumeOr dered By: Rupali Cline on 08-15-2023 Platelet mean volume (Bld) [Entitic vol] 10.5 fL 6.2-12.0 [facility] Determination of erythrocyte mean corpuscular volume (MCV)Ordered By: Rupali Cline on 08-15-2023 MCV (RBC) [Entitic vol] 97.5 fL 81-99 [facility] Hematocrit Auto (Bld) [Volum e fraction]Ordered By: Rupali Cline on 08-15-2023 Hematocrit (Bld) [Volume fraction] 39.1 % 37-47 [facility] - Chemistry and C hemistry - challengeOrdered By: Rupali Cline on 08-15-2023 ALP [Catalytic activity/Vol] 66 U/L 45-117 [facility] ALT [Catalytic activity/Vol] 29 U/L 13-56 [facility] CO2 [Moles/Vol] 26.0 mmol/L 21.0-32.0 [facility] Globulin (S) [Mass/Vol] 3.7 g/dL 2.2-4.2 [facility] Urea nitrogen/Creatinine [Mass ratio] 20.2 mg/mg 10-20 [facility] - Hematology and Cell countsOrdered By: Rupali Cline on 08-15-2023 Erythrocyte distribution width (RBC) [Entitic vol] 46.4 fL 35.1-43.9 [facility] Erythrocyte distribution width (RBC) [Ratio] 12.9 % 11.6-14.6 [facility] Immature granulocytes/100 WBC (Bld) 0.200 % 0.0-0.9 [facility] Comment on above: IG% - Immature Granu locytes (promyelocytes, myelocytes and metamyelocytes) > 1% indicates that a LEFT SHIFT is Present. MCH (RBC) [Entitic mass] 31.7 pg 27.0-32.0 [facility] Nucleated RBC/100 WBC (Bld) [Ratio] 0 % 0-5 [facility] MCHC Auto (RBC) [Mass/Vol]Or dered By: Rupali Cline on 08-15-2023 MCHC (RBC) [Mass/Vol] 32.5 g/dL 32-36 [facility] No Panel InformationOrdered By: Rupali Cline on 08-15-2023 Estimated GFR (MDRD) Amer 105 mL/min >60 [facility] Comment on above: GFR Calc Estimated GFR (MDRD) Non-Af Amer 87 mL/min >60 [facility] Comment on above: Non- GFR Calc Thyroid Stimulating Hormone (TSH) 1.19 uIU/mL 0.358-3.74 [facility] Vitamin D 25-Hydroxy 31.2 ng/mL [facility] Comment on above: Vitamin D 25(OH) Sta tus Range Deficiency <20 ng/mL (50nmol/L) Insufficiency 20 - 30 ng/mL (50 - 75 nmol/L) Sufficiency 30 - 100 ng/mL (75 - 250 nmol/L) Toxicity >100 ng/mL (>250 nmol/L) Platelets bldOrdered By: Malaika Cline on 08-15-2023 Platelets (Bld) [#/Vol] 242 10*3/uL 150-450 [facility] Serum or plasma albumin jairo urement (mass/volume)Ordered By: Rupali Cline on 08-15-2023 Albumin [Mass/Vol] 3.6 g/dL 3.2-5.0 [facility] Serum or plasma albumin/glob ulin mass ratioOrdered By: Rupali Cline on 08-15-2023 Albumin/Globulin [Mass ratio] 1.0 {ratio} 0.9-2.4 [facility] Serum or plasma calcium jairo urement (mass/volume)Ordered By: Rupali Cline on 08-15-2023 Calcium [Mass/Vol] 9.2 mg/dL 8.5-10.1 [facility] Serum or plasma cholesterol in HDL measurement (mass/volume)Ordered By: Rupali Cline on 08-15-2023 Cholesterol in HDL [Mass/Vol] 54 mg/dL >40 [facility] Comment on above: The drugs N-Acetylcy steine and Metamizole may falsely depress this assay. Reference Range HDL <40 mg/dL Low HDL Cholesterol HDL >or= 60 mg/dL High HDL Cholesterol Serum or plasma cholesterol in VLDL measurement (mass/volume)Ordered By: Rupali Cline on 08-15-2023 Cholesterol in VLDL [Mass/Vol] 34 mg/dL 5-40 [facility] Serum or plasma creatinine m easurement (mass/volume)Ordered By: Rupali Cline on 08-15-2023 Creatinine [Mass/Vol] 0.69 mg/dL 0.55-1.02 [facility] Comment on above: The validity of the calculated GFR & GFRAA in patients over 70 years has not been determined. Clinical correlation is essential. Serum or plasma low density lipoprotein (LDL) cholesterol measurement (mass/volume)Ordered By: Rupali Cline on 08-15-2023 Cholesterol in LDL [Mass/Vol] 150 mg/dL 0-130 [facility] Serum or plasma urea nitroge n measurement (mass/volume)Ordered By: Rupali Cline on 08-15-2023 Urea nitrogen [Mass/Vol] 14 mg/dL 7-18 [facility] Thin prep Papanicolaou smear with manual screeningOrdered By: Rupali Cline on 08-15-2023 Thin prep Papanicolaou smear with manual screening 21 U/L 15-37 [facility] Thin prep Papanicolaou smear with manual screening 5 5-15 [facility] XR FOOT GENERAL 3V AP/LAT/OB L RIGHTon 04-09-2023 [facility] DARBY SCREENING W TOMOon 01-15 [facility] UA DIP, URINE (POC)on 2021 BILIRUBIN UA (POCT) Negative Negative [facility] CLARITY UA (POCT) Cloudy [facility] COLOR UA (POCT) Yellow [facility] GLUCOSE UA (POCT) Negative Negative mg/dL [facility] HEMOGLOBIN/BLOOD UA (POCT) Large Abnormal Negative [facility] KETONE UA (POCT) Negative Negative mg/dL [facility] LEUKOCYTES UA (POCT) Moderate Abnormal Negative [facility] NITRITE UA (POCT) Positive Abnormal Negative [facility] PH UA (POCT) 5.5 4.5 - 8.0 [facility] Protein Ql (U) 100 mg/dL Abnormal Negative mg/dL [facility] SPECIFIC GRAVITY UA (POCT) >=1.030 1.005 - 1.030 [facility] UROBILINOGEN UA (POCT) 0.2 E.U./dL Jeane l E.U./dL [facility] Absolute lymphocyte counton 08-17-2022 Lymphocytes Auto (Unsp spec) [#/Vol] 1.91 10*3/uL 0.83-4.51 [facility] Work Phone: Basophil percentageon 2021 Basophils/100 WBC (Bld) 1.4 % 0-1 [facility] Work Phone: Bilirubin [Mass/Vol] 0.30 mg/dL 0.20-1.00 [facility] Work Phone: Comment on above: For patients on eltr ombopag therapy, use of Dimension [place] TBIL is not recommended. Chloride [Moles/Vol] 106 mmol/L 98-107 [facility] Work Phone: Cholesterol [Mass/Vol] 251 mg/dL <200 [facility] Work Phone: [phone] Comment on above: <200 mg/dL Desirable 200-240 mg/dL Borderline >240 mg/dL High Risk Eosinophils/100 WBC (Bld) 2.5 % 0-5 [facility] Work Phone: [phone] Glucose [Mass/Vol] 93 mg/dL 74-106 [facility] Work Phone: Neutrophils (Bld) [#/Vol] 1.9 10*3/uL 2.0-7.7 [facility] Work Phone: Neutrophils/100 WBC (Bld) 42.3 % 47-70 [facility] Work Phone: [phone] Potassium [Moles/Vol] 4.1 mmol/L 3.5-5.1 [facility] Work Phone: Protein [Mass/Vol] 7.2 g/dL 6.4-8.2 [facility] Work Phone: [phone] Sodium [Moles/Vol] 140 mmol/L 136-145 [facility] Work Phone: Triglyceride [Mass/Vol] 175 mg/dL <199 [facility] Work Phone: [phone] Comment on above: The drugs N-Acetylcy steine and Metamizole may falsely depress this assay.Serum Triglycerides Reference Interval Normal <150 mg/dL Borderline high 150 - 199 mg/dL High 200 - 499 mg/dL Very High > or = 500 mg/dL WBC (Bld) [#/Vol] 4.4 10*3/uL 4.4-11.0 [facility] Work Phone: Blood erythrocytes count (nu mber/volume)on 08-17-2022 RBC (Bld) [#/Vol] 4.01 10*6/uL 4.2-5.4 [facility] Work Phone: Blood hemoglobin measurement (mass/volume)on 08-17-2022 Hemoglobin (Bld) [Mass/Vol] 12.5 g/dL 12.0-15.0 [facility] Work Phone: Blood lymphocytes/100 leukoc yteson 08-17-2022 Lymphocytes/100 WBC (Bld) 43.0 % 19-41 [facility] Work Phone: Blood monocytes/100 leukocyt eson 08-17-2022 Monocytes/100 WBC (Bld) 10.6 % 0-10 [facility] Work Phone: Blood platelet mean volumeon 08-17-2022 Platelet mean volume (Bld) [Entitic vol] 10.3 fL 6.2-12.0 [facility] Work Phone: Determination of erythrocyte mean corpuscular volume (MCV)on 08-17-2022 MCV (RBC) [Entitic vol] 97.0 fL 81-99 [facility] Work Phone: Hematocrit Auto (Bld) [Volum e fraction]on 08-17-2022 Hematocrit (Bld) [Volume fraction] 38.9 % 37-47 [facility] Work Phone: Laboratory - Chemistry and C hemistry - challengeon 08-17-2022 ALP [Catalytic activity/Vol] 87 U/L 45-117 [facility] Work Phone: ALT [Catalytic activity/Vol] 29 U/L 13-56 [facility] Work Phone: CO2 [Moles/Vol] 28.0 mmol/L 21.0-32.0 [facility] Work Phone: Globulin (S) [Mass/Vol] 3.8 g/dL 2.2-4.2 [facility] Work Phone: Urea nitrogen/Creatinine [Mass ratio] 20.5 mg/mg 08-17 [facility] Work Phone: Laboratory - Hematology and Cell countson 08-17-2022 Erythrocyte distribution width (RBC) [Entitic vol] 47.0 fL 35.1-43.9 [facility] Work Phone: Erythrocyte distribution width (RBC) [Ratio] 13.1 % 11.6-14.6 [facility] Work Phone: Immature granulocytes/100 WBC (Bld) 0.200 % 0.0-0.9 [facility] Work Phone: Comment on above: IG% - Immature Granu locytes (promyelocytes, myelocytes and metamyelocytes) > 1% indicates that a LEFT SHIFT is Present. MCH (RBC) [Entitic mass] 31.2 pg 27.0-32.0 [facility] Work Phone: Nucleated RBC/100 WBC (Bld) [Ratio] 0 % 0-5 [facility] Work Phone: MCHC Auto (RBC) [Mass/Vol]on 08-17-2022 MCHC (RBC) [Mass/Vol] 32.1 g/dL 32-36 [facility] Work Phone: No Panel Informationon 08-17 Estimated GFR (MDRD) Amer 80 mL/min >60 [facility] Work Phone: Comment on above: GFR Calc Estimated GFR (MDRD) Non-Af Amer 66 mL/min >60 [facility] Work Phone: Comment on above: Non- GFR Calc Vitamin D 25-Hydroxy 32.4 ng/mL [facility] Work Phone: Comment on above: Vitamin D 25(OH) Sta tus Range Deficiency <20 ng/mL (50nmol/L) Insufficiency 20 - 30 ng/mL (50 - 75 nmol/L) Sufficiency 30 - 100 ng/mL (75 - 250 nmol/L) Toxicity >100 ng/mL (>250 nmol/L) Platelets bldon 08-17-2022 Platelets (Bld) [#/Vol] 269 10*3/uL 150-450 [facility] Work Phone: Serum or plasma albumin jairo urement (mass/volume)on 08-17-2022 Albumin [Mass/Vol] 3.4 g/dL 3.2-5.0 [facility] Work Phone: Serum or plasma albumin/glob ulin mass ratioon 08-17-2022 Albumin/Globulin [Mass ratio] 0.9 {ratio} 0.9-2.4 [facility] Work Phone: Serum or plasma calcium jairo urement (mass/volume)on 08-17-2022 Calcium [Mass/Vol] 9.5 mg/dL 8.5-10.1 [facility] Work Phone: Serum or plasma cholesterol in HDL measurement (mass/volume)on 08-17-2022 Cholesterol in HDL [Mass/Vol] 49 mg/dL >40 [facility] Work Phone: Comment on above: The drugs N-Acetylcy steine and Metamizole may falsely depress this assay. Reference Range HDL <40 mg/dL Low HDL Cholesterol HDL >or= 60 mg/dL High HDL Cholesterol Serum or plasma cholesterol in VLDL measurement (mass/volume)on 08-17-2022 Cholesterol in VLDL [Mass/Vol] 35 mg/dL 5-40 [facility] Work Phone: Serum or plasma creatinine m easurement (mass/volume)on 08-17-2022 Creatinine [Mass/Vol] 0.88 mg/dL 0.55-1.02 [facility] Work Phone: Comment on above: The validity of the calculated GFR & GFRAA in patients over 70 years has not been determined. Clinical correlation is essential. Serum or plasma low density lipoprotein (LDL) cholesterol measurement (mass/volume)on 08-17-2022 Cholesterol in LDL [Mass/Vol] 167 mg/dL 0-130 [facility] Work Phone: Serum or plasma urea nitroge n measurement (mass/volume)on 08-17-2022 Urea nitrogen [Mass/Vol] 18 mg/dL 7-18 [facility] Work Phone: Thin prep Papanicolaou smear with manual screeningon 08-17-2022 Thin prep Papanicolaou smear with manual screening 16 U/L 15-37 [facility] Work Phone: Thin prep Papanicolaou smear with manual screening 6 5-15 [facility] Work Phone: MRI BRAIN WO IVCONon 12-28-2 022 MRI BRAIN WO IVCON * * [...] Dec 28 2021 4:38PM EST [id number] Normal [facility] Procedure Noteon [place] Procedure Note Normal [facility] ([place]) Final Surgical Pathology Rep yobani 11-07-2017 Final Surgical Pathology Report . Pathology ReportsAccession: Collected Date/Time: Received Date/Time: Pathologist:[id number] 11/05/2017 09:40 EST 11/06/2017 07:21 EST MD KAMILAH THAYER Final Surgical Pathology ReportDIAGNOSIS:RIGHT COLON, BIOPSY: SLIGHTLY POLYPOID FRAGMENTS OF COLONIC MUCOSA WITH NO SPECIFIC PATHOLOGIC CHANGES.COMMENT:AOH - D# [id number] INFORMATION:Procedure: COLONOSCOPY WITH BIOPSY OF POLYP RIGHT COLONPreoperative diagnosis: HISTORY HIGH GRADE DYSPLASIA POLYPPostoperative diagnosis: HISTORY HIGH GRADE DYSPLASIA POLYPSPECIMEN:A POLYP, COLORECT - BIOPSY POLYP RIGHT COLONGROSS DESCRIPTION:_Received in formalin labeled right colon polyp biopsy are 3 leal glistening soft tissues averaging 0.2 cm. A S -1Dictated by LUIS JAIN ([facility])MICROSCOPIC DESCRIPTION:Slides reviewed.Electronically Signed byPathology Report verified by [facility]ronically signed by KAMILAH Chapa out Date: 11/07/2017 16:51Performing Lab: [facility], [address] [place] [address] Normal [facility] ([place]) Comment on above: Performed By: #### S PFR ####[facility] [place] [id number] Procedure Recordon 11-05-2017 [facility] Procedure Record Normal [facility] ([place]) Depart Summaryon 11-05-2017 Depart Summary Normal [facility] ([place] History and Physicalon 11-05 History and Physical Normal [facility] ([place]) Outpatient Patient Summaryon 11-05-2017 Outpatient Patient Summary Normal [facility] ([place] Office Visiton 05-17-2017 Dietary management education, guidance, and counseling (procedure) yes Invalid Interpretation Code [facility] Work Phone: Documentation of current medications (procedure) Done Invalid Interpretation Code [facility] Work Phone: Tobacco smoking status NHIS Never Invalid Interpretation Code [facility] Work Phone: Tobacco use [facility] Never smoker Invalid Interpretation Code [facility] Work Phone: Office Visiton 12-28-2016 Dietary management education, guidance, and counseling (procedure) yes Invalid Interpretation Code [facility] Work Phone: Documentation of current medications (procedure) Done Invalid Interpretation Code [facility] Work Phone: Tobacco smoking status NHIS Never Invalid Interpretation Code [facility] Work Phone: 1 0 Tobacco use [facility] Never smoker Invalid Interpretation Code [facility] Work Phone: 1) 0 Lab Report: CBC W/Diff, Auto matedon 04-28-2016 Basophils/100 leukocytes 1.5 % High 0-1 [facility] Work Phone: 1) 0 Eosinophils/100 leukocytes 2.9 % Invalid Interpretation Code 0-5 [facility] Work Phone: 1() 0 Erythrocytes (RBC) 3.79 10*6/uL Low 4.2-5.4 [facility] Work Phone: 1) 0 Hematocrit (HCT) 36.7 % Low 37-47 [facility] and Orthopaedics Work Phone: [phone]) 0 Hemoglobin (HGB) 12.1 g/dL Invalid Interpretation Code 12.0-15.0 [facility] Work Phone: 1) 0 immature granulocytes, percentage of total cells, blood 0.000 % Invalid Interpretation Code 0.0-0.9 [facility] Work Phone: [phone]) 0 Lymphocytes 1.17 X10 3/UL Invalid Interpretation Code 0.83-4.51 [facility] Work Phone: ) 0 Lymphocytes/100 leukocytes 34.0 % Invalid Interpretation Code 19-41 [facility] Work Phone: [phone]) 0 MCH 31.9 pg Invalid Interpretation Code 27.0-32.0 [facility] Work Phone: 1) 0 MCHC 33.0 G/GL Invalid Interpretation Code 32-36 [facility] Work Phone: 1) 0 MCV 96.8 fL Invalid Interpretation Code 81-99 [facility] Work Phone: 1) 0 Monocytes/100 leukocytes 13.4 % High 0-10 [facility] Work Phone: 1) 0 neutrophil count, blood 1.7 X10 3/UL Low 2.0-7.7 [facility] Work Phone: [phone] Neutrophils/100 leukocytes 48.2 % Invalid Interpretation Code 47-70 [facility] Work Phone: [phone] Platelets 231 10*3/mm3 Invalid Interpretation Code 150-450 [facility] Work Phone: [phone] PMV by Peng 10.5 fL Invalid Interpretation Code 6.2-12.0 [facility] Work Phone: [phone] RDW-CA 12.6 % Invalid Interpretation Code 11.6-14.6 [facility] Work Phone: [phone] red blood cell distribution width, size density 42.7 fL Invalid Interpretation Code 35.1-43.9 [facility] Work Phone: [phone] WBC (Leukocytes) 3.4 10*3/uL Low 4.4-11.0 [facility] Work Phone: [phone] Lab Report: [facility] 04-28-2016 Alanine aminotransferase (ALT) 39 U/L Invalid Interpretation Code 12-78 [facility] Work Phone: [phone] Albumin 3.8 g/dL Invalid Interpretation Code 3.4-5.0 [facility] Work Phone: [phone] Albumin/Globulin Ratio 1.2 {ratio} Invalid Interpretation Code 0.9-2.4 [facility] Work Phone: [phone] Alkaline phosphatase (ALP) 60 U/L Invalid Interpretation Code 50-136 [facility] Work Phone: [phone] Anion gap 7 mmol/L Invalid Interpretation Code 5-15 [facility] Work Phone: [phone] Aspartate aminotransferase (AST) 28 U/L Invalid Interpretation Code 15-37 [facility] Work Phone: [phone] Bilirubin (total) 0.30 mg/dL Invalid Interpretation Code 0.20-1.00 [facility] Work Phone: [phone] BUN/Creatinine Ratio 22.9 RATIO High 10-20 [facility] Work Phone: [phone] Calcium 9.3 mg/dL Invalid Interpretation Code 8.5-10.1 [facility] Work Phone: [phone] Chloride 106 mmol/L Invalid Interpretation Code 98-107 [facility] Work Phone: [phone] CO2 29.0 mmol/L Invalid Interpretation Code 21.0-32.0 [facility] Work Phone: [phone] Creatinine 0.83 mg/dL Invalid Interpretation Code 0.55-1.20 [facility] Work Phone: [phone] eGFR (non-black) 72 mL/min/{1.73_m2} Invalid Interpretation Code >60 [facility] Work Phone: [phone] eGFR (non-black) 87 mL/min/{1.73_m2} Invalid Interpretation Code >60 [facility] Work Phone: [phone] Globulin 3.1 g/dL Invalid Interpretation Code 2.3-3.5 [facility] Work Phone: [phone] Glucose 87 mg/dL Invalid Interpretation Code 70-110 [facility] Work Phone: [phone] Potassium 4.2 mmol/L Invalid Interpretation Code 3.5-5.1 [facility] Work Phone: [phone] Protein 6.9 g/dL Invalid Interpretation Code 6.4-8.2 [facility] Work Phone: [phone] Sodium 142 mmol/L Invalid Interpretation Code 136-145 [facility] Work Phone: [phone] Urea nitrogen 19 mg/dL High 7-18 [facility] Work Phone: [phone] Lab Report: Lipid Profileon 04-28-2016 Cholesterol 216 mg/dL High 200 [facility] Work Phone: [phone] HDL Cholesterol 50 mg/dL Invalid Interpretation Code [facility] Work Phone: [phone] LDL Cholesterol 123 mg/dL Invalid Interpretation Code 0-130 [facility] Work Phone: [phone] Triglyceride 213 mg/dL High [facility] Work Phone: [phone] very low density lipoproteins 43 mg/dL High 5-40 [facility] Work Phone: [phone] Lab Report: Microalb:Creat R atio,Random URon 04-28-2016 ACR (microalbumin/creatini ne) ratio 12.6 MG/G CRE Invalid Interpretation Code <30 mg/g CRE [facility] Work Phone: [phone] Urine, creatinine 104.00 mg/dL Invalid Interpretation Code NO RANGE EST. [facility] Work Phone: [phone] Urine, microalbumin 1.31 mg/dL Invalid Interpretation Code Units converted. See lab report for original value. [facility] Work Phone: [phone] Lab Report: Vitamin D,25 Hyd roxyon 04-28-2016 vitamin D 25-hydroxy, serum 30.5 ng/mL Invalid Interpretation Code [facility] Work Phone: [phone] Vital Signs Date Time Vital Sign Value Performing Clinician Facility 07-05-2025 14:35-0400 Body temperature 97.8 [degF] Dr. Rupali Cline DO Work Phone: [facility] 07-05-2025 14:35-0400 Diastolic blood pressure 66 mm[Hg] Dr. Rupali Cline DO Work Phone: [facility] 07-05-2025 14:35-0400 Heart rate 64 /min Dr. Rupali Cline DO Work Phone: [facility] 07-05-2025 14:35-0400 Respiratory rate 14 /min Dr. Rupali Cline DO Work Phone: [facility] 07-05-2025 14:35-0400 SaO2% (BldA) [Mass fraction] 98 % Dr. Rupali Cline DO Work Phone: [facility] 07-05-2025 14:35-0400 Systolic blood pressure 141 mm[Hg] Dr. Rupali Cline DO Work Phone: [facility] 07-05-2025 09:55-0400 Body mass index (BMI) [Ratio] 28.2 kg/m2 Dr. Ruplai Cline DO Work Phone: [facility] 07-05-2025 09:55-0400 Body weight [address] Rupali Cline DO Work Phone: [facility] 07-05-2025 09:45-0400 Body height 157.[address] Rupali Cline DO Work Phone: [facility] 11-17-2024 11:16-0500 Body mass index (BMI) [Ratio] 30.29 kg/m2 [place] Stephanie FORENSIC PHOTOGRAPHER.DIRECTOR REACTOR [employer]S Work Phone: [facility] 11-17-2024 11:16-0500 Body weight 73.3 kg [place] Stephanie FORENSIC PHOTOGRAPHER.DIRECTOR [employer]ACTOR [employer] Work Phone: [facility] 11-17-2024 11:16-0500 Diastolic blood pressure 78 mm[Hg] [place] Stephanie FORENSIC PHOTOGRAPHER.DIRECTOR [employer]ACTOR [employer] Work Phone: [facility] 11-17-2024 11:16-0500 Heart rate 89 /min [place] Stephanie FORENSIC PHOTOGRAPHER.DIRECTOR [employer]ACTOR [employer] Work Phone: [facility] 11-17-2024 11:16-0500 SaO2% (BldA) [Mass fraction] 97 % [place] Stephanie FORENSIC PHOTOGRAPHER.DIRECTOR [employer]ACTOR [employer] Work Phone: [facility] 11-17-2024 11:16-0500 Systolic blood pressure 126 mm[Hg] [place] Stephanie FORENSIC PHOTOGRAPHER.DIRECTOR REACTOR [employer] Work Phone: [facility] 09-17-2024 11:12-0500 Body mass index (BMI) [Ratio] 30.85 kg/m2 [place] Stephanie FORENSIC PHOTOGRAPHER.DIRECTOR [employer]ACTOR [employer] Work Phone: [facility] 09-17-2024 11:12-0500 Body weight 74.66 kg [place] Stephanie FORENSIC PHOTOGRAPHER.DIRECTOR REACTOR [employer] Work Phone: [facility] 09-17-2024 11:12-0500 Diastolic blood pressure 89 mm[Hg] [place] Stephanie FORENSIC PHOTOGRAPHER.DIRECTOR REACTOR [employer] Work Phone: [facility] 09-17-2024 11:12-0500 Heart rate 86 /min [place] Stephanie FORENSIC PHOTOGRAPHER.DIRECTOR [employer]ACTOR [employer] Work Phone: [facility] 09-17-2024 11:12-0500 Respiratory rate 16 /min [place] Stephanie FORENSIC PHOTOGRAPHER.DIRECTOR [employer]ACTOR [employer] Work Phone: [facility] 09-17-2024 11:12-0500 Systolic blood pressure 159 mm[Hg] [place] Stephanie FORENSIC PHOTOGRAPHER.DIRECTOR [employer]ACTOR [employer] Work Phone: [facility] 07-22-2024 08:46-0400 Body height 155.6 cm Indiana Auguste MD Work Phone: [facility] 07-22-2024 08:46-0400 Body mass index (BMI) [Ratio] 30.74 kg/m2 Indiana Auguste MD Work Phone: [facility] 07-22-2024 08:46-0400 Body weight 74.39 kg Indiana Auguste MD Work Phone: [facility] 07-22-2024 08:46-0400 Diastolic blood pressure 70 mm[Hg] Indiana Auguste MD Work Phone: [facility] 07-22-2024 08:46-0400 Systolic blood pressure 116 mm[Hg] Indiana Auguste MD Work Phone: [facility] 06-16-2024 09:51-0400 Body mass index (BMI) [Ratio] 31.32 kg/m2 [place] Stephanie FORENSIC PHOTOGRAPHER.DIRECTOR [employer]ACTOR [employer] Work Phone: [facility] 06-16-2024 09:51-0400 Body weight 75.2 kg Indiana Stephanie FORENSIC PHOTOGRAPHER.DIRECTOR REACTOR [employer]S Work Phone: [facility] 06-16-2024 09:51-0400 Diastolic blood pressure 78 mm[Hg] [place] Stephanie FORENSIC PHOTOGRAPHER.DIRECTOR REACTOR [employer]S Work Phone: [facility] 06-16-2024 09:51-0400 Heart rate 80 /min [place] Stephanie FORENSIC PHOTOGRAPHER.DIRECTOR REACTOR [employer] Work Phone: [facility] 06-16-2024 09:51-0400 SaO2% (BldA) [Mass fraction] 98 % [place] Stephanie FORENSIC PHOTOGRAPHER.DIRECTOR [employer]ACTOR [employer] Work Phone: [facility] 06-16-2024 09:51-0400 Systolic blood pressure 119 mm[Hg] [place] Stephanie FORENSIC PHOTOGRAPHER.DIRECTOR REACTOR [employer]S Work Phone: [facility] 03-17-2024 09:17-0400 Body mass index (BMI) [Ratio] 31.1 kg/m2 Indiana Stephanie FORENSIC PHOTOGRAPHER.DIRECTOR [employer]ACTOR [employer] Work Phone: [facility] 03-17-2024 09:17-0400 Body weight 74.66 kg [place] Stephanie FORENSIC PHOTOGRAPHER.DIRECTOR REACTOR [employer]S Work Phone: [facility] 03-17-2024 09:17-0400 Diastolic blood pressure 81 mm[Hg] [place] Stephanie FORENSIC PHOTOGRAPHER.DIRECTOR REACTOR [employer]S Work Phone: [facility] 03-17-2024 09:17-0400 Heart rate 73 /min [place] Stephanie FORENSIC PHOTOGRAPHER.DIRECTOR [employer]ACTOR [employer] Work Phone: [facility] 03-17-2024 09:17-0400 Respiratory rate 18 /min [place] Stephanie FORENSIC PHOTOGRAPHER.DIRECTOR REACTOR [employer] Work Phone: [facility] 03-17-2024 09:17-0400 SaO2% (BldA) [Mass fraction] 95 % [place] Stephanie FORENSIC PHOTOGRAPHER.DIRECTOR REACTOR [employer]S Work Phone: [facility] 03-17-2024 09:17-0400 Systolic blood pressure 130 mm[Hg] Indiana Brown FORENSIC PHOTOGRAPHER.DIRECTOR REACTOR [employer]S Work Phone: [facility] 03-08-2023 09:35-0400 Body weight 71.58 kg Mirna Dahlhausen FORENSIC PHOTOGRAPHER.DIRECTOR REACTOR [employer]S Work Phone: [facility] 03-08-2023 09:35-0400 Diastolic blood pressure 70 mm[Hg] Mirna Dahlhausen FORENSIC PHOTOGRAPHER.DIRECTOR REACTOR [employer] Work Phone: [facility] 03-08-2023 09:35-0400 Heart rate 64 /min Mirna Dahlhausen FORENSIC PHOTOGRAPHER.DIRECTOR REACTOR [employer] Work Phone: [facility] 03-08-2023 09:35-0400 Respiratory rate 16 /min Mirna Dahlhausen FORENSIC PHOTOGRAPHER.DIRECTOR REACTOR [employer] Work Phone: [facility] 03-08-2023 09:35-0400 SaO2% (BldA) [Mass fraction] 95 % Mirna Dahlhausen FORENSIC PHOTOGRAPHER.DIRECTOR REACTOR [employer]S Work Phone: [facility] 03-08-2023 09:35-0400 Systolic blood pressure 118 mm[Hg] Mirna Dahlhausen FORENSIC PHOTOGRAPHER.DIRECTOR REACTOR [employer]S Work Phone: [facility] 10-04-2022 13:31-0500 Body height 154.9 cm [place] Auguste MD Work Phone: [facility] 10-04-2022 13:31-0500 Body weight 72.58 kg [place] Auguste MD Work Phone: [facility] 10-04-2022 13:31-0500 Diastolic blood pressure 68 mm[Hg] Indiana Auguste MD Work Phone: [facility] 10-04-2022 13:31-0500 Systolic blood pressure 114 mm[Hg] [place] Auguste MD Work Phone: [facility] 08-24-2022 12:58-0400 Body temperature 98.29 [degF] Pavan Book MD Work Phone: [facility] 08-24-2022 12:58-0400 Diastolic blood pressure 79 mm[Hg] Pavan James MD Work Phone: [facility] 08-24-2022 12:58-0400 Heart rate 86 /min Pavan James MD Work Phone: [facility] 08-24-2022 12:58-0400 Respiratory rate 17 /min Pavan James MD Work Phone: [facility] 08-24-2022 12:58-0400 Systolic blood pressure 138 mm[Hg] Pavan James MD Work Phone: [facility] 06-16-2022 15:05-0400 Body height 154.9 cm Mirnabenji Lovehausmitch FORENSIC PHOTOGRAPHER.DIRECTOR REACTOR PROJECTS Work Phone: [facility] 06-16-2022 15:05-0400 Body weight 74.39 kg Mirnabenji Lovehausen FORENSIC PHOTOGRAPHER.DIRECTOR REACTOR [employer]S Work Phone: [facility] 06-16-2022 15:05-0400 Diastolic blood pressure 73 mm[Hg] Mirna Dahlhausen FORENSIC PHOTOGRAPHER.DIRECTOR REACTOR [employer]S Work Phone: [facility] 06-16-2022 15:05-0400 Heart rate 77 /min Mirna Dabunnyhausen FORENSIC PHOTOGRAPHER.DIRECTOR REACTOR [employer]S Work Phone: [facility] 06-16-2022 15:05-0400 Respiratory rate 16 /min Mirna Dabunnyhausen FORENSIC PHOTOGRAPHER.DIRECTOR REACTOR [employer]S Work Phone: [facility] 06-16-2022 15:05-0400 SaO2% (BldA) [Mass fraction] 98 % Mirna Dahlhausen FORENSIC PHOTOGRAPHER.DIRECTOR REACTOR [employer]S Work Phone: [facility] 06-16-2022 15:05-0400 Systolic blood pressure 113 mm[Hg] Mirna Dahlhausen FORENSIC PHOTOGRAPHER.DIRECTOR REACTOR [employer]S Work Phone: [facility] 05-18-2022 16:03-0400 Body height 154.9 cm Babatunde Penaloza MD Work Phone: [facility] 05-18-2022 16:03-0400 Body weight 74.8 kg Babatunde Penaloza MD Work Phone: [facility] 05-18-2022 16:03-0400 Diastolic blood pressure 75 mm[Hg] Babatunde Penaloza MD Work Phone: [facility] 05-18-2022 16:03-0400 Heart rate 79 /min Babatunde Penaloza MD Work Phone: [facility] 05-18-2022 16:03-0400 Systolic blood pressure 139 mm[Hg] Babatunde Penaloza MD Work Phone: [facility] 08-17-2021 10:47-0400 Body temperature 98.49 [degF] Pavan James MD Work Phone: [facility] 08-17-2021 10:47-0400 Diastolic blood pressure 81 mm[Hg] Pavan James MD Work Phone: [facility] 08-17-2021 10:47-0400 Heart rate 90 /min Pavan James MD Work Phone: [facility] 08-17-2021 10:47-0400 Systolic blood pressure 152 mm[Hg] Pavan James MD Work Phone: [facility] 03-07-2016 13:16-0400 BMI (Body Mass Index) 28.71 kg/m2 [facility] Work Phone: 03-07-2016 13:16-0400 Body Temperature 98.2 [degF] [facility] Work Phone: 03-07-2016 13:16-0400 BP Diastolic 84 mm[Hg] [facility] Work Phone: 03-07-2016 13:16-0400 BP Systolic 130 mm[Hg] [facility] Work Phone: 03-07-2016 13:16-0400 BSA (Body Surface Area) 1.73 m2 [facility] Work Phone: 03-07-2016 13:16-0400 Pulse (Heart Rate) 85 /min [facility] Work Phone: 03-07-2016 13:16-0400 Respiratory Rate 14 /min [facility] ter [facility] Work Phone: 03-07-2016 13:16-0400 Weight 71.22 kg [facility] er [facility] Medicine [facility] Orthopa[facility]ics Work Phone: 01-07-2015 10:11-0400 Height 157.48 cm [facility] er [facility] Medicine [facility] Orthopaedics Work Phone: Encounters Encounter Date Encounter Type Care Provider Facility Start: 07-10-2025 End: 07-10-2025 ambulatory RUPALI CLINE Facility:[facility] Start: 07-06-2025 End: 07-06-2025 Telemedicine consultation with patient [place] Brown APRN.CNP Work Phone: Neurology Start: 07-06-2025 End: 07-06-2025 ambulatory [place] Brown APRN.CNP Work Phone: Neurology Comment on above: RLS (restless legs s yndrome) (Primary Dx); Chronic insomnia Start: 07-05-2025 End: 07-05-2025 Emergency department patient visit Dr. Rupali Cline DO Work Phone: -Emergency Department Work Phone: Start: 06-17-2025 End: 06-17-2025 Refill [place] Brown APRN.CNP Work Phone: Neurology Comment on above: Refill Request Start: 06-16-2025 End: 06-17-2025 ambulatory [place] Brown APRN.CNP Work Phone: Neurology Comment on above: Medication - Gabapen tin Start: 06-12-2025 End: 06-17-2025 Telephone encounter [place] Brown APRN.DIRECTOR REACTOR [employer]S Work Phone: Neurology Comment on above: Medication Problem Start: 05-18-2025 End: 05-18-2025 Telephone encounter [place] Brown APRN.DIRECTOR REACTOR [employer]S Work Phone: Neurology Start: 02-09-2025 End: 02-09-2025 Telephone encounter Enmanuel Phipps RN Work Phone: [facility] Home Delivery Comment on above: Insurance Authorizat ion; [employer] Start: 02-04-2025 End: 04-06-2025 Refill Babatunde Penaloza MD Work Phone: Neurology Comment on above: Refill Request Start: 02-03-2025 End: 02-03-2025 ambulatory [place] AUGUSTE Facility:[facility] Start: 02-03-2025 Encounter for gynecological examination (general) (routine) without abnormal findings [facility] Start: 02-03-2025 End: 02-03-2025 Patient encounter status Screen Wstr [facility] Start: 02-03-2025 End: 02-03-2025 Subsequent hospital visit by physician Screen Mammo [facility] Wstr Mammogram Comment on above: Encounter for routin e gynecologic examination in Medicare patient [Z01.419] Start: 01-17-2025 End: 01-19-2025 Refill Babatunde Penaloza MD Work Phone: Neurology Comment on above: Refill Request Start: 11-17-2024 End: 11-17-2024 Patient encounter procedure [place] Brown APRN.DIRECTOR REACTOR [employer]S Work Phone: Neurology Comment on above: RLS (restless legs s yndrome) (Primary Dx); Insomnia, unspecified type Start: 11-17-2024 End: 11-17-2024 ambulatory [facility] Facility:[facility] Start: 09-17-2024 End: 09-24-2024 Telephone encounter Layla Cherry APRN.CNM Work Phone: OB/Gynecology Comment on above: Results UTI Start: 09-17-2024 End: 09-17-[address] [facility] Facility:[facility] Start: 09-17-2024 End: 09-17-2024 Patient encounter procedure Layla Cherry APRN.CNM Work Phone: OB/Gynecology Comment on above: Urinary urgency (Lucía baldo Dx); Urinary frequency RLS (restless legs s yndrome) (Primary Dx) Start: 08-21-2024 End: 08-21-2024 ambulatory Rupali [facility] Facility:[facility] Start: 07-22-2024 End: 07-22-2024 ambulatory [place] AUGUSTE Facility:[facility] Start: 07-22-2024 End: 07-22-2024 Patient encounter procedure [place] Auguste MD Work Phone: OB/Gynecology Comment on above: Encounter for routin e gynecologic examination in Medicare patient (Primary Dx); Encounter for screening mammogram for breast cancer Start: 07-22-2024 End: 07-22-2024 Patient encounter status [place] Auguste MD Work Phone: [facility] Start: 06-16-2024 End: 06-16-2024 Patient encounter procedure [place] Brown APRN.DIRECTOR REACTOR [employer]S Work Phone: Neurology Comment on above: RLS (restless legs s yndrome) (Primary Dx) Start: 06-09-2024 Refill Babatunde Penaloza MD Work Phone: Neurology Comment on above: Refill Request Start: 03-17-2024 Telephone encounter [place] adrian APRN.DIRECTOR REACTOR [employer]S Work Phone: Neurology Start: 03-17-2024 End: 03-17-2024 Patient encounter procedure [place] Brown APRN.DIRECTOR REACTOR [employer]S Work Phone: Neurology Comment on above: RLS (restless legs s yndrome) (Primary Dx) Start: 02-01-2024 Documentation procedure Mammog vince Coordinator [facility] Start: 02-01-2024 Letter encounter Mammography Coordinator [facility] Department Start: 01-31-2024 End: 01-31-2024 Subsequent hospital visit by physician Bone Density [facility] Wstr Work Phone: Radiology Comment on above: At risk for decrease d bone density [Z91.89] Encounter for screen ing mammogram for malignant neoplasm of breast [Z12.31] Start: 12-18-2023 Telephone encounter Neurology Provid er Neurology Comment on above: Patient Update Start: 12-11-2023 Refill Babatunde Penaloza MD Work Phone: Neurology Comment on above: Refill Request Start: 08-15-2023 End: 08-15-2023 ambulatory [facility] Work Phone: Start: 08-15-2023 End: 08-15-2023 Patient encounter procedure [facility], Joseph Gonsalves [facility] Start: 06-22-2023 Refill Mirna Dahlha usen FORENSIC PHOTOGRAPHER.DIRECTOR REACTOR [employer]S Work Phone: Neurology Comment on above: Refill Request Start: 06-01-2023 Refill Mirna Dahlha usen FORENSIC PHOTOGRAPHER.DIRECTOR REACTOR [employer]S Work Phone: Neurology Comment on above: Refill Request Start: 05-31-2023 Refill Michele Verma Work Phone: Neurology Comment on above: Refill Request Start: 04-13-2023 Refill Mirna Dahlha usen FORENSIC PHOTOGRAPHER.DIRECTOR REACTOR [employer]S Work Phone: Neurology Comment on above: Med Change Request Start: 04-09-2023 End: 04-09-2023 Patient encounter procedure Alessandro Leslie Work Phone: Podiatry Comment on above: Porokeratosis (Prima ry Dx) Start: 04-09-2023 End: 04-09-2023 Subsequent hospital visit by physician [facility] Work Phone: Radiology Comment on above: Pain in right foot [ M79.671] Start: 04-03-2023 Telephone encounter Enmanuel wilkes RN Work Phone: [facility] Home Delivery Comment on above: Insurance Authorizat ion ([employer] 140MG/ML auto-injectors/) Start: 03-08-2023 End: 03-08-2023 Patient encounter procedure Mirna Baum APRN.DIRECTOR [employer]OR [employer] Work Phone: Neurology Comment on above: RLS (restless legs s yndrome) (Primary Dx); Intractable episodic headache, unspecified headache type Start: 02-19-2023 Orders Only Alessandro scott Work Phone: Podiatry Comment on above: Pain in right foot ( Primary Dx) Refill Request Start: 01-24-2023 Refill Babatunde Penaloza MD Work Phone: Neurology Comment on above: Refill Request Start: 01-16-2023 Documentation procedure Mammog vince Coordinator [facility] Start: 01-16-2023 Letter encounter Mammography Coordinator [facility] Department Start: 01-15-2023 End: 01-15-2023 Patient encounter status Screen Wstr [facility] Start: 01-15-2023 End: 01-15-2023 Subsequent hospital visit by physician Screen Mammo [facility] Wstr Mammogram Comment on above: Encounter for gyneco logical examination (general) (routine) without abnormal findings [Z01.419] Start: 01-02-2023 Refill Mirna Dahlha usen FORENSIC PHOTOGRAPHER.DIRECTOR REACTOR PROJECTS Work Phone: Neurology Comment on above: Refill Request Start: 12-17-2022 Refill Mirna Dahlha usen FORENSIC PHOTOGRAPHER.DIRECTOR REACTOR PROJECTS Work Phone: Neurology Comment on above: Refill Request Start: 11-23-2022 End: 11-23-2022 ambulatory Babatunde Penaloza MD Work Phone: Neurology Comment on above: Migraine without aur a and without status migrainosus, not intractable (Primary Dx) Start: 11-23-2022 End: 11-23-2022 Telemedicine consultation with patient Babatunde Penaloza MD Work Phone: [facility] Start: 11-06-2022 Refill Mirna Dahlha usen FORENSIC PHOTOGRAPHER.DIRECTOR REACTOR PROJECTS Work Phone: Neurology Comment on above: Refill Request Start: 11-04-2022 Refill Mirna Dahlha usen FORENSIC PHOTOGRAPHER.DIRECTOR REACTOR PROJECTS Work Phone: Neurology Comment on above: Refill [...] Orders Only Pavan lee MD Work Phone: [facility] Start: 08-25-2022 End: 08-29-2022 ambulatory [facility] Start: 08-24-2022 End: 08-24-2022 Office outpatient visit 15 minutes Pavan James MD Work Phone: [facility] Comment on above: Cystocele, midline ( Primary Dx); Incomplete uterine prolapse Start: 08-21-2022 E-mail encounter fro m caregiver [facility] Provider PARI MASON Start: 08-21-2022 Patient encounter procedure [facility] Comment on above: October Appointment with Dr. Penaloza Start: 08-17-2022 End: 08-17-2022 ambulatory [facility] Work Phone: Start: 08-17-2022 End: 08-17-2022 Patient encounter procedure [facility] Start: 06-30-2022 Refill Mirna acosta APRN.DIRECTOR REACTOR PROJECTS Work Phone: Neurology Comment on above: Refill Request Start: 06-30-2022 Refill Mirna acosta APRN.DIRECTOR REACTOR PROJECTS Work Phone: Neurology Comment on above: Refill Request Start: 06-16-2022 End: 06-16-2022 Patient encounter procedure Mirna Baum FORENSIC PHOTOGRAPHER.DIRECTOR REACTOR PROJECTS Work Phone: Neurology Comment on above: RLS (restless legs s yndrome) (Primary Dx); Intractable episodic headache, unspecified headache type Start: 05-18-2022 End: 05-18-2022 Patient encounter procedure Babatunde Penaloza MD Work Phone: Neurology Comment on above: Migraine without aur a and without status migrainosus, not intractable (Primary Dx) Start: 03-30-2022 ambulatory Mirna Marieebunnyanette usen FORENSIC PHOTOGRAPHER.DIRECTOR REACTOR PROJECTS Work Phone: [facility] Start: 03-30-2022 Patient encounter procedure Mirna Baum FORENSIC PHOTOGRAPHER.DIRECTOR REACTOR PROJECTS Work Phone: Neurology Comment on above: Appointment Start: 02-04-2022 ambulatory Mirna Leonela usen FORENSIC PHOTOGRAPHER.DIRECTOR REACTOR PROJECTS Work Phone: Neurology Comment on above: Lyrica Start: 08-17-2021 End: 08-17-2021 ambulatory PAVAN JAMES [facility] Start: 08-17-2021 End: 08-17-2021 Office outpatient visit 15 minutes Pavan James MD Work Phone: [facility] Comment on above: Cystocele, midline Start: 11-05-2017 End: 11-05-2017 Ambulatory [facility] Facility:B Procedures Date Procedure Procedure Detail Performing Clinician Start: 07-06-2025 Follow-up visit Follow Up INDIANA BROWN Start: 07-05-2025 Plain chest X-ray Dr. Anders Cline DO Work Phone: Start: 07-05-2025 D-dimer assay, quantitative Dr. Rupali Cline DO Work Phone: Comment on above: D-Dimer ELEVATED (>0 .49): Additional studies and clinicalassessments are indicated to conclude diagnosis of:Deep Vein Thrombosis (DVT) or Pulmonary Embolism (PE)CRITICAL VALUE CALLED TO WILLY LIRIANO07/05/25 1026 Jaciel Olivares.RESULTS READ BACK BY SAME. Start: 07-05-[address] Rupali Cline Work Phone: Start: 04-09-2023 Radex foot complete minimum 3 views Alessandro Nelson Work Phone: Start: 01-15-2023 DARBY SCREENING W MURTAZA Re matilde Auguste MD Work Phone: Start: 10-04-2022 Urnls dip stick/tabl et rgnt auto w/o microscopy Indiana Auguste MD Work Phone: Start: 03-07-2016 End: 04-28-2016 *CBC with Differential Rupali Verma Work Phone: Start: 03-07-2016 End: 04-28-2016 *CMP Complete Metabolic Panel Rupali montes de oca DO Work Phone: Start: 03-07-2016 End: 04-28-2016 [...] PM EST Office Visit Neurology [address] [place] [address] [place] [address] [place] [address] follow up on Migraines Neurology Comment on above: follow up on Migrain es Start: 07-06-2025 End: 10-05-2025 Ferritin [Mass/volume] in Serum or Plasma FERRITIN Lab Routine RLS (restless legs syndrome) Expected: 07/06/2025, Expires: 10/05/2025 [facility] Work Phone: Comment on above: Expected: 07/06/2025 , Expires: 10/05/2025 Start: 07-06-2025 End: 10-05-2025 Iron and Iron binding capacity panel - Serum or Plasma IRON AND TIBC Lab Routine RLS (restless legs syndrome) Expected: 07/06/2025, Expires: 10/05/2025 [facility] Comment on above: Expected: 07/06/2025 , Expires: 10/05/2025 Start: 07-06-2025 End: 07-06-2025 Patient encounter procedure 07/06/2025 11:30 AM EDT Office Visit Neurology [address] [place] [address] Indiana Brown APRN.DIRECTOR REACTOR PROJECTS [address] [place] [address] Restless Leg syndrome Neurology Comment on above: Restless Leg syndrom e Start: 07-05-2025 [facility] Start: 07-05-2025 [facility] Start: 06-29-2025 Influenza vaccination Influenza Vacc ine (#1) [facility] Start: 06-04-2025 End: 06-04-2025 Patient encounter procedure 06/04/2025 11:30 AM EDT Office Visit Neurology [address] [place], [place] [address] Indiana Brown APRN.DIRECTOR REACTOR PROJECTS [address] [place] [address] Restless legs Neurology Comment on above: Restless legs Start: 05-06-2025 End: 05-06-2025 Patient encounter procedure 05/06/2025 11:30 AM EDT Office Visit Neurology [address] [place] [address] [place] [address] [place] [address] follow up Neurology Comment on above: follow up Start: 04-01-2025 End: 04-01-2025 Patient encounter procedure 04/01/2025 11:30 AM EDT Office Visit Neurology [address] [place] [address] [place] [address] [place] [address] follow up Neurology Comment on above: follow up Start: 02-03-2025 End: 02-03-2025 Patient encounter procedure 02/03/2025 11:30 AM EDT Appointment Mammogram [address] [place], [place] [address] Encounter for routine gynecologic examination in Medicare patient [Z01.419]; Encounter for screening mammogram for breast cancer [Z12.31] Mammogram Comment on above: Encounter for routin e gynecologic examination in Medicare patient [Z01.419]; Encounter for screening mammogram for breast cancer [Z12.31] Start: 11-17-2024 End: 11-17-2024 Patient encounter procedure 11/17/2024 11:30 AM EST Office Visit Neurology [address] [place] [address] Indiana Brown, RICH.DIRECTOR REACTOR PROJECTS [address] [place] [address] follow up for medications changes 06/16/24 Neurology Comment on above: follow up for medica tions changes 06/16/24 Start: 10-29-2024 Advance Directive Discussion Advance Directive Discussion [facility] Start: 10-29-2024 Medicare Advantage Annual Wellness Visit Medicare Advantage Annual Wellness Visit [facility] Start: 10-29-2024 Shingrix Vaccine (2 of 2) Shingrix Vaccine (2 of 2) [facility] Start: 09-17-2024 End: 09-17-2024 Patient encounter procedure 09/17/2024 11:00 AM EST Office Visit Neurology [address] [place] [address] Indiana Brown, RICH.DIRECTOR REACTOR PROJECTS [address] [place] [address] follow up for medications changes 06/16/24 Neurology Comment on above: follow up for medica tions changes 06/16/24 Start: 07-22-2024 End: 07-22-2024 Patient encounter procedure 07/22/2024 8:40 AM EDT Office Visit OB/Gynecology [address] [place] [address] Indiana Auguste MD [address] [place] [address] Annual OB/Gynecology Comment on above: Annual Start: 06-29-2024 Covid-19 Vaccine ( season) Covid-19 Vaccine () [facility] Start: 06-29-2024 Influenza vaccination [facility] Start: 06-16-2024 End: 06-16-2024 Patient encounter procedure 06/16/2024 10:00 AM EDT Office Visit Neurology [address] [place] [address] Indiana Brown, RICH.DIRECTOR REACTOR PROJECTS [address] [place] [address] 8 week follow up medication change. Neurology Comment on above: 8 week follow up med ication change. Start: 10-29-2023 Advance Directive Discussion Advance Directive Discussion [facility] Start: 10-29-2023 Depression Assessment Depression Ass [facility] Start: 06-29-2023 Covid-19 Vaccine ( season) Covid-19 Vaccine () [facility] Start: 06-29-2023 Influenza vaccination [facility] Start: 10-29-2022 ADVANCE DIRECTIVE DISCUSSION ADVANCE DIRECTIVE DISCUSSION [facility] Start: 10-29-2022 [facility] Start: 08-24-2022 End: 08-24-2022 Patient encounter procedure 08/24/2022 Office Visit Urogynecology Pavan James MD [address] [facility] [address] [place] [address] [facility] Start: 06-29-2022 Influenza vaccination INFLUENZA (#1) [facility] Start: 12-27-2021 COVID-19 VACCINE (4 - Booster for Moderna series) COVID-19 VACCINE (4 - Booster for Moderna series) [facility] Start: 10-29-2021 ADVANCE DIRECTIVE DISCUSSION ADVANCE DIRECTIVE DISCUSSION [facility] Start: 10-29-2021 DEPRESSION ASSESSMENT DEPRESSION ASS ESSMENT [facility] Start: 10-24-2021 COVID-19 VACCINE (4 - Booster for Moderna series) COVID-19 VACCINE (4 - Booster for Moderna series) [facility] Start: 10-24-2021 COVID-19 VACCINE (4 - Moderna series) COVID-19 VACCINE (4 - Moderna series) [facility] Start: 06-29-2021 Influenza vaccination Sequenti al Influenza Vaccine (#1) [facility] Start: 2017 RSV Vaccine (1 - 1-d ose 75+ series) RSV Vaccine (1 - 1-dose 75+ series) [facility] Start: 05-17-2017 End: 05-17-2017 Appointment Appointment [facility] Work Phone: Start: 12-28-2016 End: 12-28-2016 X-ray exam of shoulder X-Ray, Shoulder [facility] Work Phone: Start: 03-07-2016 End: 04-28-2016 *CBC with Differential *CBC with Differential [facility] Work Phone: Start: 03-07-2016 End: 04-28-2016 *CMP Complete Metabolic Panel *CMP Complete Metabolic Panel [facility] Work Phone: Start: 03-07-2016 End: 04-28-2016 *Microalbumin, Creatine Ratio, rand urine *Microalbumin, Creatine Ratio, rand urine [facility] Work Phone: Start: 03-07-2016 End: 04-28-2016 25-Hydroxyvitamin D2+25-Hydroxyvitamin D3 [Mass/volume] in Serum or Plasma *Vitamin D (Calciferol) [facility] Work Phone: Start: 03-07-2016 End: 04-28-2016 Lipid panel [AGGREGATE] *Lipid Profile [facility] Work Phone: Start: 11-16-2015 End: 11-16-2015 X-ray exam of hip X-Ray, Hip Unilateral [facility] Work Phone: Start: 11-16-2015 End: 11-16-2015 X-ray exam of pelvis X-Ray, Pelvis [facility] Work Phone: Start: 10-01-2008 DIABETES SCREEN DIABETES SCREEN [facility] Start: 10-01-2008 Diabetes Screening Diabetes Screenin g [facility] Start: 2007 BONE DENSITY BONE DENSITY [facility] Start: 2007 Bone Density Screening Bone Density Screening [facility] Start: 2007 Fall risk assessment Falls Risk Asse ssment [facility] Start: 2007 Pneumococcal Vaccine : 65+ (1 - PCV) Pneumococcal Vaccine: 65+ (1 - PCV) [facility] Start: 2007 Pneumococcal Vaccine : 65+ (1 of 1 - PCV) Pneumococcal Vaccine: 65+ (1 of 1 - PCV) [facility] Start: 2007 Pneumococcal Vaccine : Age 65+ (1 - PCV) Pneumococcal Vaccine: Age 65+ (1 - PCV) [facility] Start: 2007 Pneumococcal Vaccine : Age 65+ (1 of 1 - PPSV23) Pneumococcal Vaccine: Age 65+ (1 of 1 - PPSV23) [facility] Start: 2007 PNEUMOCOCCAL: 65+ (1 - PCV) PNEUMOCOCCAL: 65+ (1 - PCV) [facility] Start: 2007 PNEUMOVAX AGE 65 AND OVER WITH 5YR LOOKBACK (#1) PNEUMOVAX AGE 65 AND OVER WITH 5YR LOOKBACK (#1) [facility] Start: 2007 Screening for osteoporosis Bone Density Screening [facility] Start: 2002 RSV Vaccine (1 - 1-d ose 60+ series) RSV Vaccine (1 - 1-dose 60+ series) [facility] Start: 1992 Administration of he rpes zoster vaccine Zoster Vaccines (1 of 2) [facility] Start: 1992 Pneumococcal Vaccine : 50+ (1 of 1 - PCV) Pneumococcal Vaccine: 50+ (1 of 1 - PCV) [facility] Start: 1992 SHINGRIX VACCINE (1 of 2) SHINGRIX VACCINE (1 of 2) [facility] Start: 1982 Screening for malign ant neoplasm of breast Mammogram [facility] Start: 1961 Urine microalbumin profile [facility] Start: 1960 Anxiety Screening Anxiety Screening [facility] Start: 1960 Depression Screening Depression Scre ening [facility] Start: 1960 Hepatitis C screening Hepatitis C Sc reening [facility] Start: 1954 Depression screening using PHQ-9 (Patient Health Questionnaire 9) score [facility] Start: 1945 History and physical examination, annual for health maintenance Wellness Visit [facility] Start: 1942 Screening for osteoporosis Dexa Scan [facility] Start: 1942 Tetanus vaccination Tetanus: Every 1 0yrs [facility] Bacteria identified in Urine by Culture URINE CULTURE Microbiology Routine Vaginal irritation 10/04/2022 2:57 PM EST [facility] Work Phone: Bacteria identified in Urine by Culture URINE CULTURE Microbiology Routine Urinary urgency Urinary frequency 09/17/2024 1:10 PM EST [facility] Work Phone: DBT Breast - bilater al screening DARBY SCREENING W MURTAZA Radiology Routine Encounter for screening mammogram for malignant neoplasm of breast 01/31/2024 8:07 AM EDT [facility] Work Phone: End: 08-21-2025 DBT Breast - bilateral screening DARBY SCREENING W MURTAZA Radiology Routine Encounter for routine gynecologic examination in Medicare patient Encounter for screening mammogram for breast cancer 1 Occurrences starting 07/22/2024 until 08/21/2025 [facility] Work Phone: Comment on above: 1 Occurrences starti ng 07/22/2024 until 08/21/2025 DBT Breast - bilater al screening DARBY SCREENING W MURTAZA Radiology Routine Encounter for routine gynecologic examination in Medicare patient Encounter for screening mammogram for breast cancer 02/03/2025 11:48 AM EDT [facility] Work Phone: DXA Skeletal system.axial Views for bone density DXA-AXIAL SKELETON Radiology Routine At risk for decreased bone density 01/31/2024 8:33 AM EDT [facility] Work Phone: End: 11-03-2023 DXA-AXIAL SKELETON DXA-AXIAL SKELETON Radiology Routine Encounter for screening for osteoporosis 1 Occurrences starting 10/04/2022 until 11/03/2023 [facility] Work Phone: Comment on above: 1 Occurrences starti ng 10/04/2022 until 11/03/2023 End: 11-03-2023 DARBY SCREENING W MURTAZA DARBY SCREENING W MURTAZA Radiology Routine Encounter for gynecological examination (general) (routine) without abnormal findings Encounter for screening mammogram for breast cancer 1 Occurrences starting 10/04/2022 until 11/03/2023 [facility] Work Phone: Comment on above: 1 Occurrences starti ng 10/04/2022 until 11/03/2023 Patient Education Causes of Syncope [facility] Work Phone: Troponin T.cardiac [Mass/volume] in Serum or Plasma by High sensitivity method [facility] End: 03-20-2024 XR FOOT GENERAL 3V AP/LAT/OBL RIGHT XR FOOT GENERAL 3V AP/LAT/OBL RIGHT Radiology Routine Pain in right foot 1 Occurrences starting 02/19/2023 until 03/20/2024 [facility] Work Phone: Comment on above: 1 Occurrences starti ng 02/19/2023 until 03/20/2024 [facility] Immunizations Immunization Date Immunization Notes Care Provider Christiane [facility] 08-26-2024 influenza virus vaccine, unspecified formulation Indiana Brown APRN.DIRECTOR REACTOR PROJECTS Work Phone: [facility] 08-18-2022 influenza virus vaccine, unspecified formulation [employer] Work Phone: [facility] 12-23-2020 Covdc ([facility] 11-25-2020 Covid ([facility] 08-11-2020 influenza, high dose seasonal, preservative-free Mirna Baum FORENSIC PHOTOGRAPHER.DIRECTOR REACTOR PROJECTS Work Phone: [facility] Payers Date Payer Category Payer Self-pay [id number] 2021 Medicare [employer] MEDICARE A ETNA MEDICARE PPO [id number] 2021-Present [phone] [address] [place] [address] PPO [id number] 2021 [place] [id number] 2019 [place] [facility] [facility] (PPO) [id number] 2019-Present [phone] [address] [place] [address] [id number] 2019 Medicare [id number] 2017 Medicare [id number] 2014 Private Health Insurance 101 [id number] 1940 Unknown [id number] 1942 Unknown [id number] Medicare [id number] Unknown [id number] Unknown [id number] Social History Date Type Detail Facility Start: 08-17-2020 End: 06-16-2022 Tobacco smoking status NHIS Never smoked tobacco [facility] Start: 08-17-2020 End: 06-16-2022 Tobacco use and exposure Smokeless tobacco non-user [facility] Start: 08-17-2020 End: 11-17-2024 Alcohol intake Current drinker of alcohol (finding) [facility] Start: 08-17-2020 History SDOH Alcohol Frequency 2 [facility] Start: 08-17-2020 History SDOH Alcohol Std Drinks 1 [facility] Start: 1940 Sex Assigned At Not on file [facility] Start: 01-09-2022 End: 06-16-2022 Exposure to SARS-CoV-2 (event) Not sure [facility] Start: 02-13-2012 History SDOH Alcohol Comment rarely 1 per month [facility] Start: 08-14-2022 End: 08-24-2022 Exposure to SARS-CoV-2 (event) Yes [facility] Start: 09-05-2021 Tobacco smoking stat us NHIS Unknown if ever smoked [facility] Start: 1940 Sex Assigned At Female W [facility] Start: 10-05-2020 End: 04-09-2023 History of Social function [facility] Start: 10-05-2020 End: 04-09-2023 Tobacco use panel [facility] Start: 09-29-2012 Adult Depression Screening Assessment 0 [facility] Mental Status Date Assessment Result Facility 07-05-2025 Cognitive function Level Of Cons ciousness Awake;Alert;Appropriate;Follow s Commands [facility] Work Phone: Clinical Notes 08-16-2021 to 07-06-2025 Patient InstructionsIndiana Brown APRN.CNP - 07/06/2025 11:30 AM EDT Note Date & Type Note Facility 07-06-2025 Instructions Indiana Brown APRN.CNP - 07/06/2025 11:47 AM EDT Melatonin 1 mg about 3 hours before desired bedtime, then 3 mg at bedtime documented in this encounter [facility] 07-06-2025 History of Presen t illness Narrative Images from the original note were not included. [facility] Follow up/ Established patient visit Recording using [email or web address] software for draft documentation of the visit was discussed with the patient/authorized medical claims representative; all questions welcomed and answered. Patient/authorized medical claims representative agreed to proceed Assessment/Plan from last visit: Date of last visit : 11/17/24 IMPRESSION: Rls (restless legs syndrome) (primary encounter [...] mos, sooner if sxs worsen Indiana Brown APRN.BRITTNEY CURRENT VISIT: 07/06/2025 The patient is a 85-year-old female, with a history of RLS, presenting with episodes of vertigo and syncope. Accompanied by her daughter Laquita Vasquez. Virtual visit since she's not feeling well. The patient reports experiencing vertigo and syncope since Sunday, with two episodes of syncope. She describes one episode as unusual, stating, usually I am going down and I know I'm going out, and this one I just went. These symptoms have been more severe than her usual experiences and are primarily occurring in the mornings, with improvement in the afternoons and evenings. She was evaluated in the ER yesterday, where an EKG, pulse, blood pressure, and orthostatic measurements were reportedly normal. CBC was normal. This morning, she took Zofran and meclizine, the latter provided relief. She discontinued gabapentin three days ago, with her last dose on . She is uncertain if her current symptoms are related to discontinuing gabapentin. She has a history of RLS, which has continued to be bothersome at night, experiences sxs in the night when she awakes, not sure if it's RLS that wakes her. She denies that RLS is causing difficulty falling asleep initially. She has a history of taking pramipexole, which was discontinued due to augmentation of symptoms. She also has a history of taking Lyrica, which was discontinued by Dr. Celestin, who then started her on gabapentin. Prior to d/c pramipexole she had evening sxs of RLS and sometimes sxs in upper extremities. She tapered herself off gabapentin due to concern it was causing some of the above sxs. Her current sleep pattern involves going to bed around 22:00-23:00, taking 60-90 minutes to fall asleep, waking up between 02:30-03:30, being awake for 30-60 minutes, and then sleeping until 08:00-08:30. She does not feel overly tired or sleepy in the mornings but describes feeling out of it. She denies being a herminia and does not usually fall asleep on the couch before going to bed. She has not tried melatonin recently. Doesn't necessarily feels sleepy when she goes up to bed. Nidra by Noctrix wearable prescription neuromuscular stimulation device was denied and is in Level 1 appeal Would like to improve sleep onset Gabapentin 300 mg #270 last filled 02/20/25 PDMP website checked and validated. All prescriptions have been APPROPRIATELY filled. No suspicious activity was identified. 07/06/2025 by Indiana Brown APRN.DIRECTOR REACTOR PROJECTS Patient Questionnaires Sleep Scores 07/06/2025 Sleep Questions Reason for visit: Restless Legs Syndrome On average, hours of sleep in 24 hours: 7 Accidents or near accidents due to drowsy drivin 07/06/2025 [place] Sleepiness Scale Score 9 (No clinically significant daytime sleepiness) 07/06/2025 PROMIS CAT Sleep Disturbance PROMIS Sleep Disturbance T-Score 63 (moderate) PROMIS Sleep Disturbance Percentile 10 07/06/2025 Insomnia Severity Index Score 13 07/06/2025 Restless Leg Syndrome Score 18 (Moderate symptoms) 03/31/2025 PHQ-9 Score 1 1 Multiple values from one day are sorted in reverse-chronological order 07/06/2025 PROMIS Global Health - (T-Scores - the mean of general population = 50. Five points is a clinically meaningful difference.) Physical T-Score 39.8 Mental T-Score 56 ALLERGIES Allergen Reactions Atorvastatin Other: See Comments Pravastatin Other: See Comments CURRENT MEDICATIONS: erenumab-aooe (AIMOVIG AUTOINJECTOR) 140 mg/mL auto-injector Inject 1 mL subcutaneously once every month. Do not shake. biotin 5 mg tab Take 3 mg by mouth. SUMAtriptan (IMITREX) 100 mg tablet Take 50 [...] OTC NUTRITIONAL SUPPLEMENT calcium 600 mg qd PHYSICAL EXAMINATION: Vital Signs: Deferred due to virtual visit via Zoom. General appearance: NAD Mental status: awake and alert Constitutional: Well groomed Skin: Dry and intact Neuro: Speech fluent Assessment /Plan Rls (restless legs syndrome) (primary encounter diagnosis) Chronic insomnia Baldo Grant is an 85 year old female with: 1. RLS (restless legs syndrome) (G25.81) 2. Chronic insomnia (F51.04) Gabapentin discontinued 3 days ago after tapering down from 600-900 mg at HS; pramipexole previously discontinued. RLS symptoms currently limited to nighttime awakenings, with improvement in evening symptoms after discontinuing pramipexole. Previously on lyrica when on pramipexole. Chronic insomnia persists, with difficulty initiating sleep and nocturnal awakenings. - Order ferritin and iron studies to assess for iron deficiency; instructed patient to complete labs at her convenience, preferably fasting in the morning. - Discussed potential use of melatonin to aid sleep onset: advised 1 mg 3 hours before bedtime, with an additional 3 mg at bedtime if needed; reviewed that melatonin is available OTC and may require searching in the children's section or online for low-dose formulations. - Discussed that gabapentin may have been contributing to vertigo and nausea; advised to continue meclizine as needed for vertigo. - Discussed ongoing appeal process for Nidra device as a non-pharmacologic option for RLS management. - Advised to monitor symptoms and contact via Cebixhart if RLS or insomnia worsen or if additional intervention is needed. Indiana Brown APRN.DIRECTOR REACTOR PROJECTS documented in this encounter [facility] 07-06-2025 Note HNO ID: [id number] Author: INDIANA BROWN APRN.BRITTNEY Service: ? Author Type: Nurse Practitioner Type: Progress Notes Filed: 07/06/2025 13:14 Note Text: [facility] Follow up/ Established patient visit Recording using [email or web address] software for draft documentation of the visit was discussed with the patient/authorized medical claims representative; all questions welcomed and answered. Patient/authorized medical claims representative agreed to proceed Assessment/Plan from last visit: Date of last visit : 11/17/24 IMPRESSION: Rls (restless legs syndrome) (primary encounter diagnosis) Insomnia, unspecified type Baldo Grnat is an 84 year old female with [...] mos, sooner if sxs worsen Indiana Brown APRN.DIRECTOR REACTOR PROJECTS CURRENT VISIT: 07/06/2025 The patient is a 85-year-old female, with a history of RLS, presenting with episodes of vertigo and syncope. Accompanied by her daughter Laquita Vasquez. Virtual visit since she's not feeling well. The patient reports experiencing vertigo and syncope since Sunday, with two episodes of syncope. She describes one episode as unusual, stating, usually I am going down and I know I'm going out, and this one I just went. These symptoms have been more severe than her usual experiences and are primarily occurring in the mornings, with improvement in the afternoons and evenings. She was evaluated in the ER yesterday, where an EKG, pulse, blood pressure, and orthostatic measurements were reportedly normal. CBC was normal. This morning, she took Zofran and meclizine, the latter provided relief. She discontinued gabapentin three days ago, with her last dose on . She is uncertain if her current symptoms are related to discontinuing gabapentin. She has a history of RLS, which has continued to be bothersome at night, experiences sxs in the night when she awakes, not sure if it's RLS that wakes her. She denies that RLS is causing difficulty falling asleep initially. She has a history of taking pramipexole, which was discontinued due to augmentation of symptoms. She also has a history of taking Lyrica, which was discontinued by Dr. Celestin, who then started her on gabapentin. Prior to d/c pramipexole she had evening sxs of RLS and sometimes sxs in upper extremities. She tapered herself off gabapentin due to concern it was causing some of the above sxs. Her current sleep pattern involves going to bed around 22:00-23:00, taking 60-90 minutes to fall asleep, waking up between 02:30-03:30, being awake for 30-60 minutes, and then sleeping until 08:00-08:30. She does not feel overly tired or sleepy in the mornings but describes feeling out of it. She denies being a herminia and does not usually fall asleep on the couch before going to bed. She has not tried melatonin recently. Doesn't necessarily feels sleepy when she goes up to bed. Nidra by Noctrix wearable prescription neuromuscular stimulation device was denied and is in Level 1 appeal Would like to improve sleep onset Gabapentin 300 mg #270 last filled 02/20/25 PDMP website checked and validated. All prescriptions have been APPROPRIATELY filled. No suspicious activity was identified. 07/06/2025 by Indiana Brown APRN.DIRECTOR REACTOR PROJECTS Patient Questionnaires Sleep Scores 07/06/2025 Sleep Questions Reason for visit: Restless Legs Syndrome On average, hours of sleep in 24 hours: 7 Accidents or near accidents due to drowsy drivin 07/06/2025 [place] Sleepiness Scale Score 9 (No clinically significant daytime sleepiness) 07/06/2025 PROMIS CAT Sleep Disturbance PROMIS Sleep Disturbance T-Score 63 (moderate) PROMIS Sleep Disturbance Percentile 10 07/06/2025 Insomnia Severity Index Score 13 07/06/2025 Restless Leg Syndrome Score 18 (Moderate symptoms) 03/31/2025 PHQ-9 Score 1 1 Multiple values from one day are sorted in reverse-chronological order 07/06/2025 PROMIS Global Health - (T-Scores - the mean of general population = 50. Five points is a clinically meaningful difference.) Physical T-Score 39.8 Mental T-Score 56 ALLERGIES Allergen Reactions Atorvastatin Other: See Comments Pravastatin Othe (more content not included)... [facility] 07-05-2025 Discharge summary [facility] 07-05-2025 Discharge summary Note Date/Time July 05, 2025 2:22pm [facility] Medical Records Department [address] [place] [address] Emergency Department Summary 07/05/25 MR#: [id number] Acct: [id number] Name: BALDO GRANT Rep #:[id number] : 1940 85 From: Carlton Vasquez MD PCP: Dr. Rupali Cline, DO Status:REG ER Location: ED HPI History of Present Illness Chief Complaint: Syncope Informant: patient and family (x3) Narrative Narrative: 85-year-old female presenting after a syncopal episode. She states she had gotten up and started making that bad and started feeling nauseated and not well. She did not have any other symptoms. She was heading for the bathroom, she started to feel lightheaded and more nauseated, called for her who found her passed out on the floor, she was already sitting before she lost consciousness and did not injure herself or fall down the stairs where she was at the top of. She had no other prodromal symptoms, just lightheadedness and nausea; no dyspnea, chest discomfort, headache, lateralizing neurologic symptoms. She feels better now just tired and nauseated. She has a history of migraines that she takes a preventative monthly injection for, and musculoskeletal low back pain that hurts more when she is on her feet for a long time and when she does a lot of bending over and lifting. That is not botheringher right now and she does not have a headache right now. Last time she had a syncopal episode was yesterday, it was after she urinated, she denies bearing down or having a bowel movement, she had already been feeling nauseated for 20 or 30 minutes prior to that, she states she was washing her hands and was feeling lightheaded during all of that and woke up on the floor. The rest of that day she was fatigued, but then she was ambulatory and doing things and otherwise fine yesterday except for having a mild headache that eventually went away. Has been drinking plenty of fluids recently, has not eaten much this pastday after this other more recent syncopal episode and not feeling well since. Family states she tends to pass out easily especially after bowel movements, butthis is the first time she has ever had 2 unexplained episodes of syncope. Today when family was able to get to her and check her pulse with a home pulse oximeter, she was in the 60s. She was awake at that time. [facility] Medical History Osteopenia Hyperlipidemia Migraines Back problem Arthritis Seasonal allergies Hypertension Home Medications ?Medication ?Instructions ?Recorded ?Last Taken ?Type biotin 5 mg tablet 3 mg PO BID 07/18/19 Unknown History calcium 600 mg (as 1 ea PO DAILY supplement Unknown History carbonate)-vitamin D3 10 mcg (400 unit) tablet ezetimibe 10 mg tablet 10 mg PO DAILY cholesterol 0 07/18/19 Unknown History iafhqrsm-zos-ogkw-FA-Ca carb-vit K 1 ea PO DAILY vitam in 07/18/19 Unknown History 18 mg iron-400 mcg-500 mg tablet pramipexole 0.25 mg tablet 0.25 mg PO QHS restless leg s 07/18/19 Unknown History sumatriptan succinate 50 mg tablet 25 mg PO PRN PRN cl uster headache 07/18/19 Unknown History fremanezumab-vfrm 225 mg/1.5 mL 225 mg subcut Q30D 06/18 Unknown History subcutaneous auto-injector (Ajovy) lisinopril 5 mg tablet 5 mg PO DAILY 09/05/21 Unkno wn History pregabalin 150 mg capsule 150 mg PO DAILY RLS 09/05/21 Unknown History Allergy/AdvReac Type Severity Reaction Status Date / Time No Known Allergies Allergy Verified 07/05/25 09:45 Family History Father Myocardial infarction Brother Pancreatic cancer Sister Lung cancer Surgical History H/O breast biopsy S/P LEEP (loop electrosurgical excision procedure) H/O tubal ligation Social History Smoking Status: Never smoker ROS ROS ED Constitutional Constitutional ED: Denies chills or fever(s) Eyes Eyes: Denies change in vision or diplopia ENT ENT ED: Denies rhinorrhea or sore throat Cardiovascular Cardiovascular: Reports fatigue, lightheadedness, nausea and syncope; Denies arrhythmia on telemetry, chest pain, leg edema, orthostatic symptoms or palpitations Respiratory/Chest Respiratory/Chest: Denies cough or dyspnea Gastrointestinal Gastrointestinal: Reports nausea; Denies abdominal pain, diarrhea or vomiting Genitourinary Genitourinary ED: Denies dysuria or hematuria Musculoskeletal Musculoskeletal: Denies back pain or neck pain Integumentary Denies abscess or rash Neurologic Neurologic: Denies headache(s), paresthesias or weakness Psychiatric Psychiatric: Denies anxiety or suicidal thoughts EXAM Physical Exam Const Vital Signs: 07/05/25 09:45 07/05/25 10:08 07/05/25 10:18 Temperature 98.1 F Temperature Source Temporal Pulse Rate 70 Pulse Rate [Lying] 65 Pulse Rate [Sitting (for 1 minute prior to obtaining)] 64 Pulse Rate [Standing (for 1 minute prior to obtaining)] 76 Respiratory Rate 16 Blood Pressure 120/71 Blood Pressure [Lying] 131/72 H Blood Pressure [Sitting (for 1 minute prior to obtaining)] 127/66 H Blood Pressure [Standing (for 1 minute prior to obtaining)] 115/67 Blood Pressure Mean 87 Blood Pressure Mean [Lying] 91 Blood Pressure Mean [Sitting (for 1 minute prior to obtaining)] 86 Blood Pressure Mean [Standing (for 1 minute prior to obtaining)] 83 Pulse Ox 98 100 Oxygen Delivery Method Room Air Room Air 07/05/25 10:45 07/05/25 11:00 07/05/25 12:00 Temperature Temperature Source Pulse Rate 80 80 68 Pulse Rate [Lying] Pulse Rate [Sitting (for 1 minute prior to obtaining)] Pulse Rate [Standing (for 1 minute prior to obtaining)] Respiratory Rate 18 18 15 Blood Pressure 120/89 H 109/80 128/72 H Blood Pressure [Lying] Blood Pressure [Sitting (for 1 minute prior to obtaining)] Blood Pressure [Standing (for 1 minute prior to obtaining)] Blood Pressure Mean 99 89 90 Blood Pressure Mean [Lying] Blood Pressure Mean [Sitting (for 1 minute prior to obtaining)] Blood Pressure Mean [Standing (for 1 minute prior to obtaining)] Pulse Ox 98 98 95 Oxygen Delivery Method Room Air 07/05/25 13:00 07/05/25 14:00 Temperature Temperature Source Pulse Rate 64 65 Pulse Rate [Lying] Pulse Rate [Sitting (for 1 minute prior to obtaining)] Pulse Rate [Standing (for 1 minute prior to obtaining)] Respiratory Rate 12 10 L Blood Pressure 110/74 121/72 H Blood Pressure [Lying] Blood Pressure [Sitting (for 1 minute prior to obtaining)] Blood Pressure [Standing (for 1 minute prior to obtaining)] Blood Pressure Mean 86 88 Blood Pressure Mean [Lying] Blood Pressure Mean [Sitting (for 1 minute prior to obtaining)] Blood Pressure Mean [Standing (for 1 minute prior to obtaining)] Pulse Ox 99 99 Oxygen Delivery Method Room Air Room Air Positive well nourished and well developed General Appearance ED: well developed and NAD HEENT Reports moist mucous membranes normocephalic and atraumatic Eyes PERRL and EOMs intact bilaterally Neck full ROM and supple Resp normal respiratory effort and clear to auscultation bilaterally Cardio regular rate, regular rhythm and no murmurs Rate: Negative for bradycardia or tachycardic GI non-tender and non-distended Auscultation: normoactive bowel sounds Palpation: soft Back/Spine no CVA tenderness General Back: other FROM Extremity normal to inspection General Extremety ED: Negative for edema, pulses abnormal or tenderness General Extremity: Negative for edema or pulses abnormal Neuro oriented x3, CN's II-XII intact bilaterally and no sensory deficits noted Sensorium / Orientation: awake and alert Motor Exam: strength 5/5 throughout Skin no rashes or lesions noted and no wounds MDM MDM MDM Narrative Medical decision making narrative: Obtain labs, she is not anemic, she has a D-dimer that is 0.72, which is a little abnormal but when corrected for age is within normal limits ruling out PEas cause for this unexplained syncope. Her EKG is normal, she is resting in the60s here, I reviewed her medications she is on no AV marianne blockers. Also reviewed 1 view chest x-ray which my interpretation shows no cardiomegaly or acute abnormality, radiology was in agreement. Orthostatics obtained and are negative/normal. At this point her vital signs are normal labs are normal initial troponin is normal and we will monitor her and obtain a second troponin. Second opponent returns at 9 for a delta of 0. Patient doing well with normal vital signs and no telemetry or clinical events/symptoms while being observed inthe ED for a total of 4-[address] with Dr[address] Rai, he states thatplacing a Holter monitor on the patient would be reasonable, as would inpatient observation and further evaluation. The patient is adamant that she wants to gohome. I checked with respiratory, unfortunately we do not have any Holter monitors to provide to her today or tomorrow. I reevaluated and discussed this with her, offering admission, but she still wants to go home. Family is able toplace a new Apple watch on her with an EKG meeta that she will use at home until she follows up with cardiology Lab Data Attestation: I reviewed the patient's lab results. Labs: Laboratory Results - last 24 hr 07/05/25 07/05/25 09:53 12:05 WBC 4.7 RBC 3.98 L Hgb 12.9 Hct 37.6 MCV 94.5 MCH 32.4 H MCHC 34.3 RDW Std Deviation 44.2 H RDW Coeff of Eliel 12.7 Plt Count 253 MPV 9.8 Immature Gran % (Auto) 0.800 Neut % (Auto) 52.8 Lymph % (Auto) 34.2 Green % (Auto) 9.9 Eos % (Auto) 0.8 Baso % (Auto) 1.5 H Absolute Neuts (auto) 2.5 Absolute Lymphs (auto) 1.62 Nucleated RBC % 0 D-Dimer Quant (PE/DVT) 0.72 H* Sodium 138 Potassium 4.0 Chloride 105 Carbon Dioxide 23.5 Anion Gap 10 BUN 12 Creatinine 0.76 Estim Creat Clear Calc 48.84 L Est GFR (MDRD) Non-Af 78 BUN/Creatinine Ratio 16.2 Glucose 106 H Calcium 9.1 Troponin T High Sens 9 Troponin T Hi Sens 2 Hr 9 Radiography Diagnostic Testing: Clinical Impression(s) from Imaging Studies Chest X-Ray 07/05/25 10:05 IMPRESSION: Negative for acute cardiopulmonary disease. Reading Location: [id number] Rhythm Strip Rhythm Strip: Sinus Rhythm Rate: 68 Ectopy: None EKG Initial EKG: Attestation: I personally reviewed and interpreted this EKG as follows: Interpretation: Sinus Rhythm and No Acute Injury Pattern Comments: Nml axis & intervals; nml EKG Management Discussion w/another healthcare provider: Drug Regulatory Affairs Specialist (Cardiology) Discharge Plan Triage Chief Complaint: Syncope ED Provider: Carlton Vasquez Dx/Rx/DC Orders Clinical Impression: Recurrent syncope Instructions: Causes of Syncope Prescriptions: No Action sumatriptan succinate 50 MG tablet 25 mg PO PRN PRN (Reason: cluster headache) pramipexole 0.25 MG tablet 0.25 mg PO QHS ezetimibe 10 MG tablet 10 mg PO DAILY calcium carbonate-vitamin D3 1 EACH tablet 1 ea PO DAILY biotin 5 MG tablet 3 mg PO BID hg-xr-mdwp-FA-Ca carb-vit K 1 EACH tablet 1 ea PO DAILY lisinopril 5 mg tablet 5 mg PO DAILY pregabalin 150 mg capsule 150 mg PO DAILY Ajovy Autoinjector 225 mg/1.5 mL auto-injector 225 mg SUBCUT Q30D Primary Care Provider: Rupali Cline Referrals: Rupali Cline DO [Primary Care Provider] - Darren Rai MD [Med Staff - Active Staff] - As soon as possible Print Language: Thai Disposition Disposition: Home, Self Care What to do if you have Problems For any increased pain, shortness of breath, bleeding, nausea or vomiting, chestpain, or any unexpected problems, contact your Primary Care Provider. Call [facility] ([phone]) or report to the closest Emergency Room. Call 911 if necessary. 07/05/25 1422 <Electronically signed by Carlton Vasquez MD> Cosigner Signature (if applicable): CC: Dr. Rupali Cline DO; Dr. Darren Rai MD ~ Signed [facility] Work Phone: [phone]) 642-644509-07-2025 Radiology Diagnostic study note [facility] Imaging Services [address] [place], [place] [address] Chest 1 View (Portable) MR#: [id number] Acct: [id number] Name: BALDO GRANT Rep #: [id number] : 1940 F 85 From: Darren Trujillo MD PCP: Dr. Rupali Cline DO Status: REG ER Study:Chest 1 View (Portable) Date of Exam: 07/05/25 Exam# [id number] Ordering Dr: Juan Jose Vasquez MD PROCEDURE: CHEST 1 VIEW (PORTABLE) 07/05/2025 REASON FOR EXAM: CHEST PAIN TECHNIQUE: Frontal view of the chest. COMPARISON: None. FINDINGS: Hardware and support lines: None. Heart: Heart upper limits of normal size. Lungs: Negative for infiltrates, or pulmonary edema. Pleura: No pleural thickening. No pleural effusion. Mediastinum and aorta: Negative for hilar adenopathy. Mildly tortuous thoracic aorta. Bones: Slight curvature thoracic spine convex left. Age-appropriate degenerative changes of the spine. Other: Remainder of the exam negative. RAD/Chest 1 View (Portable) IMPRESSION: Negative for acute cardiopulmonary disease. Reading Location: [id number] CC: Dr. Carlton Vasquez MD; Dr. Rupali Cline, DO ~ Cardboard Inserter: Signed [facility]08-20-2025 Telephone encounter Note* Telephone Encounter - Indiana Brown APRN.CNP - 06/17/2025 12:00 PM EDT Noted thanks Indiana Brown APRN.CNP [facility]08-20-2025 Miscellaneous Notes* Telephone Encounter - Indiana Brown APRN.CNP - 06/17/2025 12:00 PM EDT Noted thanks Indiana Brown APRN.CNP * Telephone Encounter - Jacque Taylor LPN - 06/17/2025 10:10 AM EDT Patient notified of update, verbalizes understanding of instructions. Pt stated she will lower her Gabapentin to one a day. Jacque Taylor LPN * Telephone Encounter - Indiana Brown APRN.CNP - 06/17/2025 5:56 AM EDT Yes, that is fine to try the lower dose. Gabapentin can cause grogginess or fogginess. I see she has follow up 07/06/25. Indiana Brown APRN.CNP * Telephone Encounter - Evelyn Graham RN - 06/16/2025 3:09 PM EDT Patient calls to check on status of request below. Notified patient request is pending review and once we have a message to give her from provider we will contact her back. Patient verbalized understanding. Evelyn Graham RN * Telephone Encounter - Jacque Taylor LPN - 06/15/2025 9:01 AM EDT Last OV 11/17/24. Jacque Taylor LPN * Telephone Encounter - Anders Ely RN - 06/12/2025 5:07 PM EDT Pt reports she has been taking gabapentin [...] Torey Brown to advise. [facility] Telephone encounter Note * Telephone Encounter - Jacque Taylor LPN - 06/17/2025 10:24 AM EDT TC to Pt. She stated to hold off on ordering any Gabapentin till her appt. on 07/06/25. Jacque Taylor LPN [facility]08-20-2025 Miscellaneous Notes* Telephone Encounter - Jacque Taylor LPN - 06/17/2025 10:24 AM EDT TC to Pt. She stated to hold off on ordering any Gabapentin till her appt. on 07/06/25. Jacque Taylor LPN [facility] Telephone encounter Note * Telephone Encounter - Jacque Taylor LPN - 06/17/2025 10:11 AM EDT Answered I another phone encounter. Jacque Taylor LPN [facility]08-20-2025 Miscellaneous Notes* Telephone Encounter - Jacque Taylor LPN - 06/17/2025 10:11 AM EDT Answered I another phone encounter. Jacque Taylor LPN [facility] Telephone encounter Note * Telephone Encounter - Jacque Taylor LPN - 06/17/2025 10:10 AM EDT Patient notified of update, verbalizes understanding of instructions. Pt stated she will lower her Gabapentin to one a day. Jacque Taylor LPN [facility]08-20-2025 Telephone encounter Note* Telephone Encounter - Indiana Brown APRN.BRITTNEY - 06/17/2025 5:56 AM EDT Yes, that is fine to try the lower dose. Gabapentin can cause grogginess or fogginess. I see she has follow up 9/8/25. Indiana Brown APRN.DIRECTOR REACTOR PROJECTS [facility]08-19-2025 Telephone encounter Note* Telephone Encounter - Evelyn Graham RN - 06/16/2025 3:09 PM EDT Patient calls to check on status of request below. Notified patient request is pending review and once we have a message to give her from provider we will contact her back. Patient verbalized understanding. Evelyn Graham RN [facility]08-18-2025 Telephone encounter Note* Telephone Encounter - Jacque Taylor LPN - 06/15/2025 9:01 AM EDT Last OV 11/17/24. Jacque Taylor LPN [facility]08-15-2025 Telephone encounter Note* Telephone Encounter - Anders Ely RN - 06/12/2025 5:07 PM EDT Pt reports she has been taking gabapentin [...] evening. Pt asking Torey Brown to advise. [facility]07-21-20[facility] Telephone encounter Note* Telephone Encounter - Jacque Taylor LPN - 05/18/2025 4:24 PM EDT Appeal letter faxed to [facility]. Jacque Taylor LPN [facility]07-21-2025 Miscellaneous Notes* Telephone Encounter - Jacque Taylor LPN - 05/18/2025 4:24 PM EDT Appeal letter faxed to [facility] [facility]. Jacque Taylor LPN * Telephone Encounter - Indiana Brown APRN.CNP - 05/18/2025 10:30 AM EDT Please print appeal letter so I can sign for Nidra by Louis Brown APRN.BRITTNEY documented in this encounterAs[facility]07-21-[facility] Telephone encounter Note * Telephone Encounter - Indiana Brown APRN.CNP - 05/18/2025 10:30 AM EDT Please print appeal letter so I can sign for Nidra by Louis Brown APRN.BRITTNEY [facility]04-14-2025 Telephone encounter Note* Telephone Encounter - Enmanuel Phipps RN - 02/09/2025 1:22 PM EDT Ambulatory Pharmacy Prior Authorization Note Provider Intervention Required?: No - Pharmacy completed on your behalf. Was the PA documented within the ePA workqueue?: Yes View the status history of the prior authorization in the Auth Tab within Chart Review Additional Information: For questions relating to this submission, please contact [facility] at [phone] [facility] Work Phone: [phone] Miscellaneous Notes* Telephone Encounter - Enmanuel Phipps RN - 02/09/2025 1:22 PM EDT Ambulatory Pharmacy Prior Authorization Note Provider Intervention Required?: No - Pharmacy completed on your behalf. Was the PA documented within the ePA workqueue?: Yes View the status history of the prior authorization in the Auth Tab within Chart Review Additional Information: For questions relating to this submission, please contact [facility] at [phone] documented in this encounterAshtabula County Medical Center04-09-2025 Telephone encounter Note * Telephone Encounter - Bessie Nelson - 02/04/2025 9:19 AM EDT Physician: Tremaine Call from patient requesting refill. Please E-Scribe Last office visit 11/21/24 with Tremaine in person Next office visit 04/01/25 with Tremaine in person PA NEEDED Requested Prescriptions Pending Prescriptions Disp Refills erenumab-aooe (AIMOVIG AUTOINJECTOR) 140 mg/mL auto-injector 3 mL 3 Sig: Inject 1 mL subcutaneously once every month. Do not shake. Pharmacy Name: [facility] ISAI Nelson [facility]04-09-2025 Miscellaneous Notes* Telephone Encounter - Bessie Nelson - 02/04/2025 9:19 AM EDT Physician: Tremaine Call from patient requesting refill. Please E-Scribe Last office visit 11/21/24 with Tremaine in person Next office visit 04/01/25 with Tremaine in person PA NEEDED Requested Prescriptions Pending Prescriptions Disp Refills erenumab-aooe (AIMOVIG AUTOINJECTOR) 140 mg/mL auto-injector 3 mL 3 Sig: Inject 1 mL subcutaneously once every month. Do not shake. Pharmacy Name: [facility] Bessie Nelson documented in this encounterAshtabula County Medical Center04-08-2025 History of Present illness Narrative* Deann Bhat Mammo Tech - 02/03/2025 11:30 AM EDT Radiology Service Progress Note PATIENT NAME: Baldo Grant DATE OF SERVICE: February 03, 2025 TIME: 11:42 AM PATIENT IDENTITY VERIFICATION COMPLETED USING TWO (2) IDENTIFIERS: Name and Date of confirmedby patient verbally. FALL SCREENING: Has the patient had 2 falls in the last year or 1 fall with injury or currently using an Ambulatory Assistive Device (Walker, Cane, Wheelchair, Crutches, etc.)? No PATIENT GENDER DATA: Assigned female at . status: : No status:NO. PATIENT RELEVANT IMPLANT DATA REVIEWED: Not Applicable PATIENT PRESENTS WITH AN IMPLANTABLE OR ATTACHED OB/GYN: No RADIOLOGY DEPARTMENT: Mammography PERIPHERAL IV DATA: Not applicable SIGNED BY: Ned Cruz February 03, 2025 11:42 AM documented in this encounterAshtabula County Medical Center04-08-2025 NoteHNO ID: [id number] Author: DEANN BHAT Mammo Tech Service: ? [...] PATIENT PRESENTS WITH AN IMPLANTABLE OR ATTACHED OB/GYN: No RADIOLOGY DEPARTMENT: Mammography PERIPHERAL IV DATA: Not applicable SIGNED BY: Ned Cruz February 03, 2025 11:42 [facility]03-24-2025 Telephone encounter Note* Telephone Encounter - Adelaide David - 01/19/2025 9:47 AM EDT Physician: Tremaine Call from pharmacy requesting refill. Please E-Scribe Last OV: 11/21/2023 with Tremaine Future OV: 04/01/2025 with Tremaine Requested Prescriptions Pending Prescriptions Disp Refills AIMOVIG AUTOINJECTOR 140 mg/mL auto-injector [Pharmacy Med Name: AIMOVIG 140 MG/ML AUTOINJECTOR] 3 Sig: INJECT 1 ML SUBCUTANEOUSLY ONCE EVERY MONTH. DO NOT SHAKE. Pharmacy Name: [facility] Adelaide David [facility]03-24-2025 Miscellaneous Notes* Telephone Encounter - Adelaide David - 01/19/2025 9:47 AM EDT Physician: Tremaine Call from pharmacy requesting refill. Please E-Scribe Last OV: 11/21/2023 with Tremaine Future OV: 04/01/2025 with Tremaine Requested Prescriptions Pending Prescriptions Disp Refills AIMOVIG AUTOINJECTOR 140 mg/mL auto-injector [Pharmacy Med Name: AIMOVIG 140 MG/ML AUTOINJECTOR] 3 Sig: INJECT 1 ML SUBCUTANEOUSLY ONCE EVERY MONTH. DO NOT SHAKE. Pharmacy Name: [facility] Adelaide David documented in this encounterAshtabula County Medical Center01-20-2025 History of Present illness Narrative* Indiana Brown, RICH.DIRECTOR REACTOR PROJECTS - 11/17/2024 11:30 AM EST Images from the original note were not included. [facility] Follow up/ Established patient [...] increase from 300 mg to 600 mg inearly evening or HS. We'll see how that helps with her RLS and waking in the night. Hold off on HSAT for now, but we can certainly order it any time for snoring and witnessed apneas Indiana Brown APRN.DIRECTOR REACTOR PROJECTS Here for follow up for RLS New [...] around 8 PM. No RLS sxs in theevening, not having to get up from couch and walk around. This improved after discontinuing pramipexole. When she wakes in the night she does have some RLS in her lower legs--moves them, sometimes [employer] which settles them down. No naps. Nidra [...] due to drowsy drivin 06/09/2024 09/16/2024 11/16/2024 [place] Sleepiness Scale Score 1 (No clinically significant [...] population = 50. Five points is a clinicallymeaningful difference.) Physical T-Score 57.7 50.8 57.7 Mental [...] discontinuing pramipexole. She has decreased gabapentin dose--previously on600 mg in late afternoon and 300 mg [...] and 300 mg at HS to see ifthat helps with RLS in the night. Notify me when need refills. Discussed insomnia. Get OOB when can't sleep, go somewhere else, do something boring, back to bed only when drowsy. Follow up 6 mos, sooner if sxs worsen Indiana Brown APRN.DIRECTOR REACTOR PROJECTS documented in this encounterAshtabula County Medical Center01-20-2025 NoteHNO ID: [id number] Author: INDIANA BROWN APRN.DIRECTOR REACTOR PROJECTS Service: ? Author Type: Nurse Practitioner Type: Progress Notes Filed: 11/17/2024 12:15 Note Text: [facility] Follow up/ Established patient [...] for snoring and witnessed apneas Indiana Brown APRN.DIRECTOR REACTOR PROJECTS Here for follow up for RLS New [...] near accidents due to drowsy drivin 06/09/2024 09/16/202411/1611/16/2024 [place] Sleepiness Scale Score 1 (No clinically significant [...] (restless legs syndrome) (lucía (more content not included)...[facility]11-27-2024 Telephone encounter Note* Telephone Encounter - Mack Mills LPN - 09/24/2024 2:48 PM EST No email response received regarding Nidra device. Mack Mills LPN September 24, 2024 2:49 PM [facility]11-27-2024 Miscellaneous Notes* Telephone Encounter - Mack Mills LPN - 09/24/2024 2:48 PM EST No email response received regarding Nidra device. Mack Mills LPN September 24, 2024 2:49 PM * Telephone Encounter - Analilia Murillo OCCA - 09/22/2024 7:24 AM EST Email response has not been received as of this time. MARIBEL Rosales * Telephone Encounter - Analilia Murillo OCCA - 09/18/2024 1:31 PM EST Confidential email sent to Nidra medical claims representative to check on status of appeal. MARIBEL Rosales * Telephone Encounter - Indiana Brown APRN.CNP - 09/17/2024 4:27 PM EST Is there any update on her Nidra appeal? Thanks, Indiana Brown APRN.DIRECTOR REACTOR PROJECTS documented in this encounterAshtabula County Medical Center11-25-2024 Telephone encounter Note * Telephone Encounter - Analilia Murillo OCCA - 09/22/2024 7:24 AM EST Email response has not been received as of this time. MARIBEL Rosales [facility]11-21-2024 Telephone encounter Note* Telephone Encounter - Analilia Murillo OCCA - 09/18/2024 1:31 PM EST Confidential email sent to Nidra medical claims representative to check on status of appeal. MARIBEL Rosales [facility]11-20-2024 Telephone encounter Note* Telephone Encounter - Indiana Brown APRN.BRITTNEY - 09/17/2024 4:27 PM EST Is there any update on her Nidra appeal? Thanks, Indiana Brown APRN.DIRECTOR REACTOR PROJECTS [facility]11-20-2024 Telephone encounter Note* Telephone Encounter - Leigha Casarez RN - 09/17/2024 3:59 PM EST Patient notified and voiced understanding. The following approved medications have been transmitted electronically. Requested Prescriptions Signed Prescriptions Disp Refills nitrofurantoin monohydrate and macrocrystal (MACROBID) 100 mg capsule 10 capsule 0 Sig: Take 1 capsule by mouth two times a day for 5 days. Authorizing Provider: LAYLA CHERRY Pharmacy Information Pharmacy Address Telephone [facility]/pharmacy #[id number] [place] [address] Leigha Casarez RN [facility]11-20-2024 Miscellaneous Notes* Telephone Encounter - Leigha Casarez RN - 09/17/2024 3:59 PM EST Patient notified and voiced understanding. The following approved medications have been transmitted electronically. Requested Prescriptions Signed Prescriptions Disp Refills nitrofurantoin monohydrate and macrocrystal (MACROBID) 100 mg capsule 10 capsule 0 Sig: Take 1 capsule by mouth two times a day for 5 days. Authorizing Provider: LAYLA CHERRY Pharmacy Information Pharmacy Address Telephone [facility]/pharmacy #[id number] [address] [place] [address] Leigha Casarez RN * Telephone Encounter - Layla Cherry APRN.CNM - 09/17/2024 3:53 PM EST Yes, will send in Rx for Macrobid 100 mg PO BID x 5 days. Layla Cherry APRN.CNM * Telephone Encounter - Kourtney Gutierrez RN - 09/17/2024 2:21 PM EST Patient notified. She is questioning if she could be started on an antibiotic now instead of waiting then switching it if needed? She stated she is very miserable with her symptoms. Kourtney Gutierrez RN * Telephone Encounter - Leigha Casarez RN - 09/17/2024 1:35 PM EST Left message to call office. Leigha Casarez RN * Telephone Encounter - Leigha Casarez RN - 09/17/2024 1:35 PM EST ----- Message from Layla Cherry APRN.CNM sent at 09/17/2024 1:08 PM EST ----- Results reviewed. Please notify patient that urine was sent for culture and will notify if needs treated with antibiotics. Layla Cherry APRN.CNM documented in this encounterAshtabula County Medical Center11-20-2024 Telephone encounter Note * Telephone Encounter - Layla Cherry APRN.CNM - 09/17/2024 3:53 PM EST Yes, will send in Rx for Macrobid 100 mg PO BID x 5 days. Layla Cherry APRN.CNM [facility]11-20-2024 Telephone encounter Note* Telephone Encounter - Kourtney Gutierrez RN - 09/17/2024 2:21 PM EST Patient notified. She is questioning if she could be started on an antibiotic now instead of waiting then switching it if needed? She stated she is very miserable with her symptoms. Kourtney Gutierrez RN [facility]11-20-2024 Telephone encounter Note* Telephone Encounter - Leigha Casarez RN - 09/17/2024 1:35 PM EST Left message to call office. Leigha Casarez RN [facility]11-20-2024 Telephone encounter Note* Telephone Encounter - Leigha Casarez RN - 09/17/2024 1:35 PM EST ----- Message from Layla Cherry APRN.CNM sent at 09/17/2024 1:08 PM EST ----- Results reviewed. Please notify patient that urine was sent for culture and will notify if needs treated with antibiotics. Layla Cherry APRN.CNM [facility]11-20-2024 NoteHNO ID: [id number] Author: LAYLA CHERRY APRN.CNM Service: ? Author Type: Pc Technician Type: Progress Notes Filed: 09/17/2024 13:07 Note Text: Patient over 30 minutes late for appointment and provider out of office at hospital. Patient C/O frequency and urgency with urination. Requesting urine to be sent for testing. [facility] History of Present illness Narrative* Layla Cherry APRN.CNM - 09/17/2024 1:05 PM EST Patient over 30 minutes late for appointment and provider out of office at hospital. Patient C/O frequency and urgency with urination. Requesting urine to be sent for testing. Layla Cherry APRN.CNM documented in this encounterAshtabula County Medical Center11-20-2024 History of Present illness Narrative* Indiana Brown APRN.CNP - 09/17/2024 11:00 AM EST Images from the original note were not included. [facility] Follow up/ Established patient [...] 7 PM, Week 2: take 1 tablet at3 PM and 1 tablet at 7 PM, Week 3: take 1 tablet at 3 PM, then stop Appeal is in process for Nidra by [employer] wearable device for neuromuscular stimulation Follow up 3 mos Indiana Stephanie, FORENSIC PHOTOGRAPHER.DIRECTOR REACTOR PROJECTS Here for follow up for RLS Doesn't [...] bother her, has the feeling of her legswaking up--gets up, uses ice pack Gabapentin 600 mg at 3 pm and 300 mg at 7 pm Sleep is crazy recently, meaning in the last month, waking 2x, can't fall back asleep, gets up and watches TV Denies daytime sleepiness studied her--he thinks she has sleep apnea, she snores and has pauses in her breathing. Sheis claustrophobic, doesn't want an in-lab study, says she would consider a home study. Their daughter is Conchita Vasquez who works in [employer]--and has told her she likely has RAMIRO. [...] due to drowsy drivin 03/13/2024 06/09/2024 09/16/2024 [place] Sleepiness Scale Score 3 (No clinically significant [...] population = 50. Five points is a clinicallymeaningful difference.) Physical T-Score 57.7 50.8 57.7 Mental [...] increase from 300 mg to 600 mg inearly evening or HS. We'll see how that helps with her RLS and waking in the night. Hold off on HSAT for now, but we can certainly order it any time for snoring and witnessed apneas Indiana Brown APRN.CNP PDMP website checked and validated. All prescriptions have been APPROPRIATELY filled. No suspiciousactivity was identified. 09/17/2024 by Indiana Brown APRN.CNP I spent a total of 39 minutes on the date of the service which included preparing to see the patient, [id number] patient care, completing clinical documentation, counseling and educating the patient/family/caregiver, and ordering medications, tests, or procedures. documented in this encounterAshtabula County Medical Center11-20-2024 NoteHNO ID: [id number] Author: INDIANA BROWN APRN.CNP Service: ? Author Type: Nurse Practitioner Type: Progress Notes Filed: 09/17/2024 14:43 Note Text: [facility] Follow up/ Established patient [...] stimulation Follow up 3 mos Indiana Brown APRN.DIRECTOR REACTOR PROJECTS Here for follow up for RLS Doesn't [...] daughter is Conchita Vasquez who works in [employer]--and has told her she likely has RAMIRO. [...] due to drowsy drivin 03/13/2024 06/09/2024 09/16/2024 [place] Sleepiness Scale Score 3 (No clinically significant [...] delightful 84 year o (more content not included)...[facility]11-20-2024 Telephone encounter Note* Telephone Encounter - Liegha Casarez RN - 09/17/2024 9:18 AM EST Patient notified and voiced understanding. Appointment scheduled. FYI. Leigha Casarez RN [facility]11-20-2024 Miscellaneous Notes* Telephone Encounter - Leigha Casarez RN - 09/17/2024 9:18 AM EST Patient notified and voiced understanding. Appointment scheduled. FYI. Leigha Casarez RN * Telephone Encounter - Indiana Auguste MD - 09/17/2024 9:06 AM EST needs appointment for rx. Can stop in here after and see CP for visit. Indiana Auguste MD * Telephone Encounter - Kourtney Gutierrez RN - 09/17/2024 8:19 AM EST Patient calling c/o UTI symptoms. Having urinary urgency, frequency, lower back pain and dysuria. Stated that she gets these frequently in the past and asking for lab orders to be placed. She has an appointment at 11am at the [facility] with neuro and would like to stop at the lab then. Orders pending if okay or does she need an appointment? Kourtney Gutierrez RN documented in this encounterAshtabula County Medical Center11-20-2024 Telephone encounter Note * Telephone Encounter - Indiana Auguste MD - 09/17/2024 9:06 AM EST needs appointment for rx. Can stop in here after and see CP for visit. Indiana Auguste MD [facility] Work Phone: [phone]) 684-480311-20-2024 Telephone encounter Note* Telephone Encounter - Kourtney Gutierrez RN - 09/17/2024 8:19 AM EST Patient calling c/o UTI symptoms. Having urinary urgency, frequency, lower back pain and dysuria. Stated that she gets these frequently in the past and asking for lab orders to be placed. She has an appointment at 11am at the [facility] with neuro and would like to stop at the lab then. Orders pending if okay or does she need an appointment? Kourtney Gutierrez RN [facility]09-24-2024 NoteHNO ID: [id number] Author: INDIANA AUGUSTE MD Service: ? Author Type: Physician Type: Progress Notes Filed: 07/22/2024 09:08 Note Text: José Miguel is a 84 year old who presents for an annual gynecologic exam without science writer c/o.. Last Pap: 02/08/2011 normal HPV: 09/29/2005 negative History of abnormal pap: No Last mammogram: 2023 normal OB History T0 L4 SAB0 IAB0 Ectopic0 Multiple0 Live Births0 Proof Plate Maker History LMP: 10/29/1996, Postmenopausal Age at Menarche: Age at First : Age at Menopause: Proof Plate Maker History Comments: Sexual Activity: Yes; Male Contraception: [...] discussed with the Patient or Patient's Authorized Leather Etcher. As applicable, any other physician, advance practice provider, medical student, or other health professional student that will be observing or involved in the sensitive examination for educational or training purposes was discussed with the Patient or Authorized Leather Etcher. The Patient or Authorized Leather Etcher has agreed to proceed with the sensitive [...] external genitalia normal, normal Bartholin's glands, urethra, [place]'s glands, no vulvar lesions, physiologic discharge present, normal appearing perineal body and perianal region, cervix surgically absent, cystocele 3rd degree, rectocele 1st degree, atrophic flattened epithelium BIMANUAL: no adnexal masses, non-tender, and uterus surgically absent RECTOVAGINAL: deferred. ASSESSMENT/PLAN: 1) Health maintenance: Pap/HPV screening no longer needed Mammogram ordered BMD: up to date 2) Follow up one year or sooner as needed Indiana Auguste [facility]09-24-2024 History of Present illness Narrative* Indiana Auguste MD - 07/22/2024 8:40 AM EDT José Miguel is a 84 year old who presents for an annual gynecologic exam without science writer c/o.. Last Pap: 02/08/2011 normal HPV: 09/29/2005 negative History of abnormal pap: No Last mammogram: 2023 normal OB History T0 L4 SAB0 IAB0 Ectopic0 Multiple0 Live Births0 Proof Plate Maker History LMP: 10/29/1996, Postmenopausal Age at Menarche: Age at First : Age at Menopause: Proof Plate Maker History Comments: Sexual Activity: Yes; Male Contraception: [...] discussed with the Patient or Patient's Authorized Leather Etcher. As applicable, any other physician, advance practice provider, medical student, or other health professional student that will be observing or involved in the sensitive examination for educational or training purposes was discussed with the Patient or Authorized Leather Etcher. The Patient or Authorized Leather Etcher has agreed to proceed with the sensitive [...] external genitalia normal, normal Bartholin's glands, urethra, [place]'s glands, no vulvar lesions, physiologic discharge present, [...] needed Indiana Auguste MD documented in this encounterAshtabula County Medical Center08-19-2024 History of Present illness Narrative* Indiana Brown APRN.DIRECTOR REACTOR PROJECTS - 06/16/2024 10:00 AM EDT Images from the original note were not included. [facility] Follow up/ Established patient [...] Follow up 3 mos Indiana Brown APRN.BRITTNEY Here for follow up for RLS. At [...] All prescriptions have been APPROPRIATELY filled. No suspiciousactivity was identified. 06/16/2024 by Indiana Brown APRN.[facility] SLEEP HYGIENE QUESTIONS: Bedtime : 10-11 pm [...] accidents due to drowsy drivin 03/13/2024 06/09/2024 [place] Sleepiness Scale Score 3 (No clinically significant [...] population = 50. Five points is a clinicallymeaningful difference.) Physical T-Score 54.1 57.7 50.8 Mental [...] 7 PM, Week 2: take 1 tablet at3 PM and 1 tablet at 7 PM, Week 3: take 1 tablet at 3 PM, then stop Appeal is in process for Nidra by [employer] wearable device for neuromuscular stimulation Follow up 3 mos Indiana Brown APRN.DIRECTOR REACTOR PROJECTS documented in this encounterAshtabula County Medical Center08-12-2024 Telephone encounter Note * Telephone Encounter - Bo Ferguson Racheal - 06/09/2024 2:21 PM EDTFrom: Baldo Grant To: Office of Babatunde Penaloza MD Sent: 06/09/2024 1:12 PM EDT Subject: Medication Renewal Request Refills have been requested for the following medications: erenumab-aooe (AIMOVIG AUTOINJECTOR) 140 mg/mL auto-injector [Babatunde Penaloza MD] Preferred pharmacy: [facility] #[id number] [place] [id number] [address] [facility] [phone] Delivery method: Pickup [facility]08-12-2024 Miscellaneous Notes* Telephone Encounter - Bo FergusonRacheal - 06/09/2024 2:21 PM EDTFrom: Baldo Grant To: Office of Babatunde Penaloza MD Sent: 06/09/2024 1:12 PM EDT Subject: Medication Renewal Request Refills have been requested for the following medications: erenumab-aooe (AIMOVIG AUTOINJECTOR) 140 mg/mL auto-injector [Babatunde Penaloza MD] Preferred pharmacy: [facility] [address] [place] [id number] - [address] [phone] Delivery method: Pickup documented in this encounterAshtabula County Medical Center05-20-2024 Telephone encounter Note * Telephone Encounter - Quiana Tejeda LPN - 03/17/2024 12:54 PM EDT Faxed Rx to 43 pages to [facility] [phone] [facility] 03/17/2024. Quiana Tejeda LPN [facility]05-20-2024 Miscellaneous Notes* Telephone Encounter - Quiana Tejeda LPN - 03/17/2024 12:54 PM EDT Faxed Rx to 43 pages to [facility] [phone] [facility] 03/17/2024. Quiana Tejeda LPN documented in this encounterAshtabula County Medical Center05-20-2024 Telephone encounter Note * Telephone Encounter - Quiana Tejeda LPN - 03/17/2024 10:18 AM EDT Faxed OV with Torey Brown on 03/17/[address] [facility] [address] [facility] [phone]. Quiana Tejeda LPN [facility]05-20-2024 Miscellaneous Notes* Telephone Encounter - Quiana Tejeda LPN - 03/17/2024 10:18 AM EDT Faxed OV with Torey Brown on 03/17/[address] [facility] [address] [phone]. Quiana Tejeda LPN documented in this encounterAshtabula County Medical Center05-20-2024 History of Present illness Narrative* Indiana Brown APRN.DIRECTOR REACTOR PROJECTS - 03/17/2024 10:00 AM EDT Images from the original note were not included. [facility] Follow up/ Established patient [...] pramipexole 0.5 mg in the morning, if notthen her leg symptoms would start late afternoon. Sometimes takes the first dose of gabapentin at 4PM rather than 5 PM to try to [...] body around 5 AM, she'll get up andgo to the bathroom, not quite like RLS. [...] All prescriptions have been APPROPRIATELY filled. No suspiciousactivity was identified. 03/17/2024 by Indiana Brown APRN.DIRECTOR REACTOR PROJECTS PATIENT-ENTERED QUESTIONNAIRE SLEEP SCORES 03/13/2024 Sleep Questions Reason for visit: Restless Legs Syndrome On average, hours of sleep in 24 hours: 7 Accidents or near accidents due to drowsy drivin 03/13/2024 [place] Sleepiness Scale Score 3 (No clinically significant daytime sleepiness) 03/13/2024 PROMIS CAT Sleep Disturbance PROMIS Sleep Disturbance T-Score 41 (within normal limits) PROMIS Sleep Disturbance Percentile 82 03/13/2024 Restless Leg Syndrome Score 19 (Moderate symptoms) 11/20/2022 11/21/2023 03/13/2024 PHQ-9 Score 1 0 1 03/04/2023 11/21/2023 03/13/2024 PROMIS Global Health - (T-Scores - the mean of general population = 50. Five points is a clinicallymeaningful difference.) Physical T-Score 57.7 54.1 57.7 Mental [...] 9.6 oz) LMP 10/29/1996 SpO2 95% BMI 31.10kg/m PHYSICAL EXAM: General appearance: pleasant, NAD Mental [...] D Follow up 3 mos Indiana Brown APRN.CNP documented in this encounterAsht[facility]05-20-2024 Instructions* Patient Instructions* Indiana Brown APRN.CNP - 03/17/2024 9:49 AM EDT Labs today for iron stores Stop morning dose of pramipexole We will send prescription for Nidra wearable device by [employer] documented in this encounterAshtabula County [facility] Center04-05-2024 Miscellaneous Notes* Letter - Coordinator, [facility] - 02/01/2024 2:01 PM EDT February 01, 2024 PID: [id number] Baldo Grant [address] [place] [address] Dear Ms. Grant, We are pleased to [...] report will be kept on [facility] as part of your permanent medical record and are available for your continuing care. Thank you for allowing us to help in meeting your health care needs. Sincerely, Dr. Michael Interpreting Radiologist [facility] (Normal over 40) documented in this encounterAshtabula County Medical Center04-04-2024 History of Present illness Narrative* Padilla Gallardo RT(R) - 01/31/2024 8:20 AM EDT Radiology Service Progress Note PATIENT NAME: Baldo Grant DATE OF SERVICE: January 31, 2024 TIME: 8:16 AM PATIENT IDENTITY VERIFICATION COMPLETED USING TWO (2) IDENTIFIERS: Name and Date of confirmedby patient verbally. FALL SCREENING: Has the patient had 2 falls in the last year or 1 fall with injury or currently using an Ambulatory Assistive Device (Walker, Cane, Wheelchair, Crutches, etc.)? No PATIENT GENDER DATA: Female. status: : No status: NO. PATIENT RELEVANT IMPLANT DATA REVIEWED: Not Applicable PATIENT PRESENTS WITH AN IMPLANTABLE OR ATTACHED OB/GYN: No RADIOLOGY DEPARTMENT: Bone Density PERIPHERAL IV DATA: Not applicable SIGNED BY: RT Ophelia(R) January 31, 2024 8:16 AM documented in this encounterAshtabula County [facility] Center04-04-2024 History of Present illness Narrative* Emy Stern Mammo Tech - 01/31/2024 7:50 AM EDT Radiology Service Progress Note PATIENT NAME: Baldo Grant DATE OF SERVICE: January 31, 2024 TIME: 7:49 AM PATIENT IDENTITY VERIFICATION COMPLETED USING TWO (2) IDENTIFIERS: Name and Date of confirmedby patient verbally. FALL SCREENING: Has the patient had 2 falls in the last year or 1 fall with injury or currently using an Ambulatory Assistive Device (Walker, Cane, Wheelchair, Crutches, etc.)? No PATIENT GENDER DATA: Female. status: : No status: NO. PATIENT RELEVANT IMPLANT DATA REVIEWED: Not Applicable PATIENT PRESENTS WITH AN IMPLANTABLE OR ATTACHED OB/GYN: No RADIOLOGY DEPARTMENT: Mammography PERIPHERAL IV DATA: Not applicable SIGNED BY: Ned Westbrook January 31, 2024 7:49 AM documented in this encounterAshtabula [facility] Center02-20-2024 Telephone encounter Note * Telephone Encounter - Quiana Tejeda LPN - 12/18/2023 12:34 PM EST Phone call placed patient scheduled follow up on MyChart for 20 minutes, last seen in person [facility] 2020 for RLS, following with Dr. Tremaine Carson currently. OV with Shane Baum 03/08/2023 Anette SIMMS. Patient currently taking Lyrica 100 mg, 25 mg typically controlling symptoms, needed medication refill expires on 01/06/2024, denied sleep concerns and advised can address RLS exclusively with followup. Patient verbalized understanding, agreed with plan of care. Quiana Tejeda LPN [facility]02-20-2024 Miscellaneous Notes* Telephone Encounter - Quiana Tejeda LPN - 12/18/2023 12:34 PM EST Phone call placed patient scheduled follow up on MyChart for 20 minutes, last seen in person [facility] 2020 for RLS, following with Dr. Tremaine Carson currently. OV with Shane Baum 03/08/2023 RLS, Carson. Patient currently taking Lyrica 100 mg, 25 mg typically controlling symptoms, needed medication refill expires on 01/06/2024, denied sleep concerns and advised can address RLS exclusively with followup. Patient verbalized understanding, agreed with plan of care. Quiana Tejeda LPN documented in this encounterAshtabula County Medical Center02-13-2024 Miscellaneous Notes* Telephone Encounter - Mildred Muhammad - 12/11/2023 3:33 PM EST Physician: Tremaine Call from patient requesting refill. Please E-Scribe Last office visit 11/21/23 with Tremaine in person Next office visit Not scheduled. Requested Prescriptions Pending Prescriptions Disp Refills erenumab-aooe (AIMOVIG AUTOINJECTOR) 140 mg/mL auto-injector 3 mL 3 Sig: Inject 1 mL subcutaneously once every month. Do not shake. [facility] documented in this encounterAshtabula [facility] Center08-25-2023 Miscellaneous Notes* Telephone Encounter - Lola Zambrano RN - 06/22/2023 12:32 PM EDT Provider: Shane Baum CNP pharmacy requesting refill via [employer]. Last OV: 03/08/2023 Future OV: None Scheduled Last prescribed: 04/13/2023 Requested Prescriptions Pending Prescriptions Disp Refills pramipexole (MIRAPEX) 0.5 mg tablet [Pharmacy Med Name: PRAMIPEXOLE 0.5 MG TABLET] 60 tablet 2 Sig: TAKE 1/2 TABLET IN AM AND 1 TABLET IN PM Request sent to provider to review. Thank you! documented in this encounterAshtabula County Medical Center08-04-2023 Miscellaneous Notes* Telephone Encounter - Mirna Baum APRN.BRITTNEY - 06/01/2023 3:15 PM EDT PDMP website checked and validated. All prescriptions have been APPROPRIATELY filled. No suspiciousactivity was identified. June 01, 2023 Mirna Baum APRN.DIRECTOR REACTOR PROJECTS * Telephone Encounter - Anne Ashford LPN - 06/01/2023 3:06 PM EDT BELIA 03/08/23 with KD NOV none scheduled Refill 03/08/23 with qty: 30 and 2 refills Anne Ashford LPN BELIA Assessment/Plan Assessment/Plan: G25.81 RLS (restless legs syndrome) (primary encounter diagnosis) Comment: Currently taking Mirapex 0.5mg 1 tablet at bedtime and 1/2 tablet in AM as well as Lyrica 125mg QHS with goal of weaning off Mirapex. At time of last OV goal was to DC AM dose of Mirapex andinstead start 25mg Lyrica in AM, however, she did not make medication change. Today she reports some worsening of symptoms around 8PM with resolution before going to bed at 11PM. Discussed options reg arding medications including adding dose of Lyrica in early evening or splitting PM Lyrica so that half dose is taken earlier in evening as well as discontinuing AM Mirapex dose and starting possibleAM Lyrica. Of note, she has had SE [...] Dr. Penaloza as previously scheduled. Mirna Baum APRN.DIRECTOR REACTOR PROJECTS documented in this encounterAshtabula County Medical Center08-04-2023 Miscellaneous Notes* Telephone Encounter - Joshua Clemons - 06/01/2023 8:36 AM EDT Physician: Tremaine Call from patient requesting refill. Please E-Scribe Last office visit 11/23/22 with Tremaine virtual Next office visit None Scheduled NA Requested Prescriptions Pending Prescriptions Disp Refills SUMAtriptan (IMITREX) 100 mg tablet 9 tablet 1 Sig: Take 50 mg to 100 mg at migraine onset. May repeat once in 2 hours if needed. Pharm[facility]: [facility] documented in this encounterAshtabula [facility] Medical Center06-16-2023 Miscellaneous Notes* Telephone Encounter - Maddie Rodas MA - 04/13/2023 12:47 PM EDT Per provider, sig reads: Take 1/2 tablet in the am and 1 tablet in the pm. Spoke with pharmacy and advised of provider's message. documented in this encounterAshtabula County Medical Center06-12-2023 History of Present illness Narrative* Shakira Connor LPN - 04/09/2023 2:[address] Nelson, Baldo was provided with powerstep gel inserts, size 6, and instructed/educated in its application, wear, and care. All questions were answered, and patient was able to demonstrate competence with the necessary skills to utilize the above equipment. Shakira Connor LPN * Alessandro Nelson - 04/09/2023 2:27 PM EDT Images from the original note were not [...] prn Alessandro Nelson DPM Podiatry [address] [facility] [address] Dept: [phone] Dept * Shakira Connor LPN - 04/09/2023 1:55 PM EDT AMB ROOMING INTAKE FLOWSHEET DATA Pain Pain Level: 5 Pain Location: Foot-Right Description: Sore Duration Units: Months Frequency: Continuous Patient presents with: Right Foot - New, Pain Patient present to office with right foot pain. Patient states there was no injury to foot. Patientrates pain 5/10 on pian scale. Shakira Connor LPN documented in this encounterAshtabula County Medical Center06-12-2023 Instructions* Patient Instructions* Alessandro Nelson - 04/09/2023 2:37 PM EDT Powerstep Original Full length. Can purchase at [email or web address] here in [place], [employer] in [place] or [place]. Also can find in [employer] in [facility]. Powersteps can also be purchased online, starting [...] re-evaluated and/or additional treatments. documented in this encounterAshtabula County Medical Center06-12-2023 History of Present illness Narrative* Maria Alejandra Pink RT(R) - 04/09/2023 1:00 PM EDT Radiology Service Progress Note PATIENT NAME: Baldo Grant DATE OF SERVICE: April 10, 2023 TIME: 11:18 AM PATIENT IDENTITY VERIFICATION COMPLETED USING TWO (2) IDENTIFIERS: Name and Date of confirmedby patient verbally. FALL SCREENING: Has the patient had 2 falls in the last year or 1 fall with injury or currently using an Ambulatory Assistive Device (Walker, Cane, Wheelchair, Crutches, etc.)? No PATIENT GENDER DATA: Female. status: : No status: NO. PATIENT RELEVANT IMPLANT DATA REVIEWED: Not Applicable RADIOLOGY DEPARTMENT: General X-ray: Exam(s) Completed: Lower Extremity X- Ray(s): Foot, Right and Wt. Bearing PERIPHERAL IV DATA: Not applicable SIGNED BY: RT Neida(R) April 10, 2023 11:18 AM documented in this encounterAshtabula County Medical Center06-06-2023 Miscellaneous Notes* Telephone Encounter - Enmanuel Phipps RN - 04/03/2023 3:03 PM EDT Ambulatory Pharmacy Prior Authorization Note Provider Intervention Required?: No- Pharmacy completed on your behalf. Rx Plan: [facility] Drug: Aimovig 140MG/ML auto-injectors Cover My Meds [place]: [id number] Determination: Approved Prior Authorization/Case #: [id number] Prior Authorization Expiration: 04/02/24 Time to PA [...] no interruption in patient's ability to obtain medic ation refills. Prescriptions will now be processed through [facility] for determination of next steps. For questions relating to this submission, please contact [facility] at [phone] documented in this encounterAshtabula County Medical Center05-11-2023 History of Present illness Narrative* Mirna Baum, RICH.DIRECTOR REACTOR PROJECTS - 03/08/2023 10:00 AM EDT Images from the original note were not included. [facility] [place] Follow-up Visit Follow-up note March 08, 2023 [...] occasional tingling in her legs in the machine fastener. She would like to further attempt to [...] at home and on the couch she iswatching tv she will have to get up [...] of feeling, dizziness, seizure, paresthesia, facial paresthesia, facialweakness, difficulty in speech, slurring of words, dysarthria, [...] in all extremities. Vibratory sensation is intact andsymmetric all extremities. Deep tendon reflexes are symmetric at the biceps, brachioradialis, triceps, patella, and achilles bilaterally. Coordination: No dysmetria on finger to nose. No tremors noted. No drift seen. Gait normal in stance and pattern. Labs/studies: MRI Report MRI BRAIN WO IVCON Exam End: 12/28/2021 4:31 PM (Final result) Narrative: * * *Final Report* * * DATE OF EXAM: Dec 28 2021 4:31PM [facility] 0294 - MRI BRAIN WO IVCON [...] was to DC AM dose of Mirapex andinstead start 25mg Lyrica in AM, however, she did not make medication change. Today she reports some worsening of symptoms around 8PM with resolution before going to bed at 11PM. Discussed options regarding medications including adding dose of Lyrica in early evening or splitting PM Lyrica so that half dose is taken earlier in evening as well as discontinuing AM Mirapex dose and starting possibleAM Lyrica. Of note, she has had SE [...] up with Dr. Penaloza as previously scheduled. Mirnabenji Baum APRN.CNP I spent a total of 23 minutes on the date of the service which included preparing to see the patient, [id number] patient care, completing clinical documentation, obtaining and/or reviewing separately obtained history, performing a medically appropriate examination, counseling and educating the pat ient/family/caregiver, and ordering medications, tests, or procedures. documented in this encounterAshtabula County Medical Center04-25-2023 Miscellaneous Notes* Telephone Encounter - Indiana Rothman RPh - 02/20/2023 11:23 AM EDT Pharmacist Refill Authorization Review Name: Baldo Grant Date: 02/20/2023 Time: 11:23 AM Refill authorization request(s) received and reviewed under effective consult agreement. Upon review, did confirm that an active patient-provider relationship exists and that the prescriber is a participating physician under the consult agreement. Last office visit in this department: 05/18/2022 Babatunde Penaloza MD [facility] in this department: Visit date [...] 0 Indiana Rothman RPh documented in this encounterAshtabula County Medical Center03-29-2023 Miscellaneous Notes* Telephone Encounter - Mildred Muhammad - 01/24/2023 3:16 PM EDT Physician: Tremaine Call from patient requesting refill. Please E-Scribe Last office visit 11/23/22 with Tremaine dickens Next office visit Not scheduled. Requested Prescriptions Pending Prescriptions Disp Refills SUMAtriptan (IMITREX) 100 mg tablet 10 tablet 6 Sig: Take 1 tablet by mouth as needed (Migraine). Pharm[facility]: [facility] documented in this encounterAshtabula County Medical Center03-21-2023 Miscellaneous Notes* Letter - Mammography Coordinator - 01/16/2023 2:19 PM EDT January 17, 2023 PID: [id number] Baldo Grant [address] [place] [address] Dear Ms. Grant, We are pleased to [...] report will be [facility] as part of your permanent medical record and are available for your continuing care. Thank you for allowing us to help in meeting your health care needs. Sincerely, Dr. Michael Interpreting Radiologist [facility] (Normal over 40) documented in this encounterAshtabula County Medical Center03-20-2023 History of Present illness Narrative* Mirna Burton RT(Britni) - 01/15/2023 10:10 AM EDT Radiology Service Progress Note PATIENT NAME: Baldo Grant DATE OF SERVICE: January 15, 2023 TIME: 10:23 AM PATIENT IDENTITY VERIFICATION COMPLETED USING TWO (2) IDENTIFIERS: Name and Date of confirmedby patient verbally. FALL SCREENING: Has the patient [...] 15, 2023 10:23 AM documented in this encounterAshtabula County Medical Center02-20-2023 Miscellaneous Notes* Telephone Encounter - Anne Ashford LPN - 12/18/2022 11:06 AM EST TE with pt made and notified. Refills sent in by KD and pt made appt for February before next refills. Anne Ashford LPN * Telephone Encounter - Mirna Baum APRN.BRITTNEY - 12/18/2022 9:39 AM EST PDMP website checked and validated. All prescriptions have been APPROPRIATELY filled. No suspiciousactivity was identified. December 18, 2022 Mirna Baum APRN.DIRECTOR REACTOR PROJECTS * Telephone Encounter - Anne Ashford LPN - 12/18/2022 9:07 AM EST BELIA 06-16-22 with JONI SHARP no office visit scheduled. Refill 06-16-22 with [...] occasional tingling in her legs in the machine fastener. She would like to further attempt to [...] Keep follow up as scheduled. Mirna Baum APRN.DIRECTOR REACTOR PROJECTS documented in this encounterAshtabula County Medical Center01-26-2023 History of Present illness Narrative* Babatunde Penaloza MD - 11/23/2022 11:20 AM EST DISTANCE HEALTH VISIT This is a virtual visit using HIPAA compliant video platform. All issues as below were discussed and addressed but no physical exam was performed unless allowed by visual confirmation. If it was feltthat the patient should be evaluated in clinic then they were directed there. Patient and/or parent(s) verbally consented to visit. [facility] [place] Follow up visit History of Present Illness: [...] mg monthly. We will stay the course. Imitrexworks well as an abortive. I will see her back in 6 months or earlier if needed. All questions wereanswered. PLAN/RECOMMENDATIONS: Continue Aimovig 140mg monthly Continue Imitrex 50mg PRN migraine Follow up in 6 months The duration of this appointment visit was 20 minutes of [id number]-tg-bjsm time with the patient. At least 50% of this time was spent in counseling, explanation of diagnosis, planning of further management, and coordination of care. Portions of this note have been composed using voice recognition and may contain photoengraving printer errors Babatunde Penaloza M.D. [facility] Associate Staff Department of Neurology Referring provider: Babatunde Penaloza [address] [facility] [address] Primary care provider: Mary Azar [address] [place] [id number] documented in this encounterAshtabula County Medical Center12-12-2022 Miscellaneous Notes* Telephone Encounter - Gayle Gomez LPN - 10/09/2022 12:24 PM EST Patient notified * Telephone Encounter - Indiana Auguste MD - 10/09/2022 12:06 PM EST So looking at her med history when I went to send the prescription, it pulled in she was given bactrim for 5 days on Sunday. That will cover her UTI, she should finish that prescription. Indiana Auguste MD * Telephone Encounter - Gayle Gomez LPN - 10/09/2022 10:56 AM EST Patient [facility] [place] * Telephone Encounter - Gayle Gomez LPN - 10/09/2022 10:55 AM EST ----- Message from Indiana Auguste MD sent at 10/09/2022 10:20 AM EST ----- Let her know + urine culture. Get pharmacy preference and I will send in rx. Indiana Auguste MD documented in this encounterAshtabula County Medical Center12-07-2022 Miscellaneous Notes* Addendum Note - Indiana Auguste MD - 10/04/2022 2:47 PM ESTAddended by: INDIANA AUGUSTE on: 10/04/2022 02:47 PM Modules accepted: Orders * Addendum Note - Jannet Wells Ma - 10/04/2022 2:10 PM ESTAddended by: JANNET WELLS MA on: 10/04/2022 02:10 PM Modules accepted: Orders documented in this encounterAshtabula County Medical Center12-07-2022 Instructions* Patient Instructions* Jannet Wells Ma - 10/04/2022 1:36 PM EST BONE MINERAL DENSITY PATIENT INSTRUCTIONS Bone mineral density testing measures the amount of calcium in certain parts of your bones. This information determines how strong your bones are. The test is used to detect osteoporosis, a disease in which the bone's mineral content and density are low, increasing a person's risk of fractures. Thelumbar spine (lower back) and the hip are [...] your usual activities immediately. documented in this encounterAshtabula County Medical Center12-07-2022 History of Present illness Narrative* Indiana Auguste MD - 10/04/2022 1:28 PM EST José Miguel is a 82 year old who presents for an annual gynecologic exam with complaints, pruritisin groin area and under breasts. . Using nystatin powder but still comes and goes. Also feels like she might be starting a UTI Postmenopausal: yes HRT use: No. Last Pap: 02/08/2011 normal HPV: 09/29/2005 negative History of abnormal pap: No Last mammogram: 2020 normal History of abnormal mammogram: No Sexually active: Yes OB History T0 L4 SAB0 IAB0 Ectopic0 Multiple0 Live Births0 Proof Plate Maker History LMP: 10/29/1996, Postmenopausal Age at Menarche: Age at First : Age at Menopause: Proof Plate Maker History Comments: Sexual Activity: Yes; Male Contraception: [...] external genitalia normal, normal Bartholin's glands, urethra, [place]'s glands, no vulvar lesions, no cervical lesions, [...] measures Indiana Auguste MD documented in this encounterAshtabula County Medical Center10-27-2022 Evaluation + Plan note* Assessment & Plan Note - Pavan James MD - 08/24/2022 1:33 PM EDT Associated Problem(s): Incomplete uterine prolapse Remains relatively asymptomatic, demonstrates appropriate bladder emptying. Continue to monitor. She will call with additional concerns. Otherwise will be reevaluated in 1 year. [id number] Miscellaneous Notes* Assessment & Plan Note - Pavan James MD - 08/24/2022 1:33 PM EDTAssociated Problem(s): Incomplete uterine prolapse Remains relatively asymptomatic, demonstrates appropriate bladder emptying. Continue to monitor. She will call with additional concerns. Otherwise will be reevaluated in 1 year. documented in this [id number] History of Present illness Narrative* Pavan James MD - 08/24/2022 8:01 AM EDT Urogynecology and Reconstructive Pelvic Surgery Return Visit [...] normal PVR and elected observation. She presents fora one year reevaluation. She reports doing well. [...] the 08/24/22 encounter (Office Visit) with Pavan Manning MD Medication Sig Dispense Refill BIOTIN ORAL [...] mg total) by mouth daily Takes one ashli half pill daily . pregabalin (LYRICA) 100 MG capsule Take 1 (one) capsule (100 mg total) by mouth daily Taking 125 mgonce day . SUMAtriptan (IMITREX) 100 MG tablet Take 100 mg by mouth as needed 1/2 tablet as needed for clusterheadache . Allergies: Patient has no known allergies. [...] NOT EDITED TO EXPEDITE. documented in this [id number] Miscellaneous Notes* Telephone Encounter - Dionna Bearden - 08/21/2022 4:25 PM EDT Sent PaeDae message to José Miguel to assist in rescheduling appointment. Thank you, Dionna Beardne documented in this encounterAshtabula County Medical Center09-02-2022 Miscellaneous Notes* Telephone Encounter - Mariana Simons RN - 06/30/2022 9:19 AM EDT From office visit 06-16-22 Assessment/Plan: G25.81 RLS (restless legs syndrome) (primary encounter diagnosis) Comment: Pt currently taking Mirapex 0.5mg 1 tablet at bedtime and 1/2 tablet in AM as well as Lyrica 125mg QHS with goal of weaning off Mirapex. She reports symptoms after taking evening dose of Mirapex as well as occasional tingling in her legs in the machine fastener. She would like to further attempt to [...] refused and forwarded to Mirna Baum APRN. BRITTNEY. Mariana Simons RN June 30, 2022 9:20 AM documented in this encounterAshtabula County Medical Center08-19-2022 History of Present illness Narrative* Mirna Baum APRN.BRITTNEY - 06/16/2022 3:30 PM EDT Images from the original note were not included. [facility] [place] Follow-up Visit Follow-up note June 16, 2022 [...] to decrease Mirapex dose at this time. Willhave patient decrease dose to 1 1/2 tablets at bedtime (to total 0.75mg). If tolerating well and noconcerns can then decrease AM dose to 1/2 tablet after one week. She is not currently taking AM dose of Lyrica and discussed that if symptoms worsen during the daytime, can consider starting low doseof Lyrica in AM. She will contact the [...] and go. Usually happen early in the morning;4:30-6am. Per headache clinic on 05/18/22: IMPRESSION: Migraines without aura-mildly improved on Aimovig but has only had 2 doses so far. I favor staying the course. Continue Imitrex as needed. Patient asked me to prescribe the Imitrex as she was previously getting it from her PCP. I am happy to do so. I encouraged her to continue following up with herdermatologist for her sun sensitivity. I will see her back in 6 months or earlier if needed. If sheneeds a repeat nerve block she can contact [...] in all extremities. Vibratory sensation is intact andsymmetric all extremities. Deep tendon reflexes are symmetric at the biceps, brachioradialis, triceps, patella, and achilles bilaterally. Coordination: No dysmetria on finger to nose. No tremors noted. No drift seen. Gait normal in stance and pattern. Labs/studies: MRI Report MRI BRAIN WO IVCON Exam End: 12/28/2021 4:31 PM (Final result) Narrative: * * *Final Report* * * DATE OF EXAM: Dec 28 2021 4:31PM [facility] [id number] - MRI BRAIN WO IVCON [...] occasional tingling in her legs in the machine fastener. She would like to further attempt to [...] Keep follow up as scheduled. Mirna Baum APRN.BRITTNEY I spent a total of 35 minutes on the date of the service which included preparing to see the patient, [id number] patient care, completing clinical documentation, obtaining and/or reviewing separately obtained history, performing a medically appropriate examination, counseling and educating the pat ient/family/caregiver, and ordering medications, tests, or procedures. documented in this encounterAsht[facility]ula [facility]07-21-2022 Instructions* Patient Instructions* Babatunde Penaloza MD - 05/18/2022 4:21 PM EDT Continue Aimovig Continue Imitrex as needed Contact me if a repeat nerve block needed Follow up in 6 months documented in this encounterAshtabula [facility]07-21-2022 History of Present illness Narrative* Babatunde Penaloza MD - 05/18/2022 4:16 PM EDT [facility] [place] Follow up visit History of Present Illness: Ms. Grant is a 81 year old female presenting for follow-up of headaches. I last saw her on 12/29/2021.Briefly, she has a history of migraines. At her last visit, she was experiencing wearing off of herAjovy and so I switched her to Aimovig. Patient states that due to insurance issues it took her a while to get on Aimovig so she has only had 2 doses so far. It does seem to be helping mildly so far. She is averaging 10-12 monthly headachedays. Imitrex always works as an abortive. She has 100 mg tablets but breaks them in half and findsthat 50 mg is sufficient. The occipital nerve [...] encouraged her to continue following up with herdermatologist for her sun sensitivity. I will see her back in 6 months or earlier if needed. If sheneeds a repeat nerve block she can contact us. All questions were answered. PLAN/RECOMMENDATIONS: Continue Aimovig Continue Imitrex as needed Contact me if a repeat nerve block needed Follow up in 6 months The duration of this appointment visit was 30 minutes of [id number] time with the patient. At least 50% of this time was spent in counseling, explanation of diagnosis, planning of further management, and coordination of care. Portions of this note have been composed using voice recognition and may contain photoengraving printer errors Babatunde Penaloza M.D. [facility] Associate Staff Department of Neurology Referring provider: Babatunde Penaloza 1 [facility] [id number] Primary care provider: Mary Azar [address] [place] [id number] documented in this encounterAshtabula County [facility] Center06-06-2022 Miscellaneous Notes* Telephone Encounter - Mirna Baum APRN.CNP - 04/03/2022 2:37 PM EDT PDMP website checked and validated. All prescriptions have been APPROPRIATELY filled. No suspiciousactivity was identified. April 03, 2022 Mirna Baum APRN.BRITTNEY * Telephone Encounter - Yudi Brown Pss - 04/03/2022 2:27 PM EDT The patient was called and she is taking (1) 100 mg and (1) 25 mg of Lyrica. The patient would like an order for both doses. The patient states she is still decreasing the Mirapex. The patient will continue to try to stop taking the Mirapex. * Telephone Encounter - Mirna Baum APRN.CNP - 04/03/2022 1:50 PM EDT Per last visit patient was taking 150mg QHS. If taking this dose will send for 50mg capsules ratherthan two 25mg capsules. Please confirm. * Telephone Encounter - Yudi Brown Pss - 03/31/2022 8:36 AM EDT Physician: Mirna Baum CNP Call from patient [...] CECIL Class: C-V LALITHA: No Pharmacy Name: [facility] Phone #: [phone] Yudi Brown 01/19/22 Assessment/Plan: G25.81 RLS (restless legs syndrome) (primary encounter diagnosis) Comment: Patient previously seen for RLS. Was taking Mirapex 1.0mg QHS as well as 0.5mg QAM. Goal is to wean off Mirapex and therefore Lyrica 150mg was started QHS. Pt reports that when taking medications symptoms are well managed. Therefore, will attempt to decrease Mirapex dose at this time. Willhave patient decrease dose to 1 1/2 tablets at bedtime (to total 0.75mg). If tolerating well and noconcerns can then decrease AM dose to 1/2 tablet after one week. She is not currently taking AM dose of Lyrica and discussed that if symptoms worsen during the daytime, can consider starting low doseof Lyrica in AM. She will contact the office if any concerns after decreasing medication or if she would like to increase Lyrica dose. R51.9 Intractable episodic headache, unspecified headache type Comment: Consult previously placed to headache clinic. Patient currently on Aimovig as headache preventative. Continues to use Imitrex prn. Continue to follow with headache clinic as previously scheduled. documented in this encounterAshtabula [facility] Center06-03-2022 Miscellaneous Notes* Telephone Encounter - Yudi Brown Pss - 03/31/2022 11:36 AM EDT Called the patient and scheduled for follow-up appointment. documented in this encounterAshtabula [facility] Center04-11-2022 Miscellaneous Notes* Telephone Encounter - Mirna Baum APRN.CNP - 02/06/2022 9:03 AM EDT Spoke with patient. Feels lightheaded after taking 150mg Lyrica at bedtime. Discussed options and will decrease to 125mg QHS and may further decrease to 100mg QHS if lightheadedness persists. She notes that has since decreased Mirapex dose and RLS well managed. Pt to schedule follow up appt in three months. documented in this encounterAshtabula County [facility] Center03-02-2022 NoteHNO ID: [id number] Author: RT Rory(R) Service: Radiology Author Type: [...] PERIPHERAL IV DATA: Not applicable SIGNED BY: Linda Burns RT(R) December 28, 2021 4:17 PM[facility]-20-[facility]21 Miscellaneous Notes* Assessment & Plan Note - Pavan James MD - 08/17/2021 11:37 AM EDT Associated Problem(s): Cystocele, midline Stable, with mild bother symptoms and a normal postvoid residual she elects for continued observation. Precautions were reviewed. Return to the office in 1 year or as needed. documented in this [id number] History of Present illness Narrative* Pavan James MD - 08/16/2021 3:59 PM EDT Urogynecology and Reconstructive Pelvic Surgery Return Visit [...] the 08/17/21 encounter (Office Visit) with Pavan Manning MD Medication Sig Dispense Refill BIOTIN ORAL [...] as needed 1/2 tablet as needed for clusterheadache . Allergies: Patient has no known allergies. [...] NOT EDITED TO EXPEDITE. documented in this encounterOhio [facility]* Diagnosis Cystocele, midline documented in this encounter [facility] note* Diagnosis RLS (restless legs syndrome)- Primary Restless legs syndrome (RLS) documented in this encounter [facility] note* Diagnosis RLS (restless legs syndrome) Restless legs syndrome (RLS) documented in this encounter [facility] note* Diagnosis Migraine without aura and without status migrainosus, not intractable- Primary Migraine without aura, without mention of intractable migraine without mention of status migrainosus documented in this encounter [facility] note* Diagnosis RLS (restless legs syndrome)- Primary Restless legs syndrome (RLS) Intractable episodic headache, unspecified headache type documented in this encounter [facility] note* Diagnosis RLS (restless legs syndrome) Restless legs syndrome (RLS) documented in this encounter [facility] note* Diagnosis RLS (restless legs syndrome) Restless legs syndrome (RLS) documented in this encounter [facility] note* Diagnosis Cystocele, midline- Primary Incomplete uterine prolapse documented in this encounter [facility] noteNo assessment information availableWMercy Health St[facility] Work Phone: Evaluation note* Diagnosis Encounter for gynecological examination (general) (routine) without abnormal findings- Primary Encounter for screening mammogram for breast cancer Encounter for screening for osteoporosis Special screening for osteoporosis Vaginal irritation Unspecified noninflammatory disorder of vagina documented in this encounter [facility] note* Diagnosis RLS (restless legs syndrome) Restless legs syndrome (RLS) documented in this encounter [facility] note* Diagnosis RLS (restless legs syndrome) Restless legs syndrome (RLS) documented in this encounter [facility] note* Diagnosis Migraine without aura and without status migrainosus, not intractable- Primary Migraine without aura, without mention of intractable migraine without mention of status migrainosus documented in this encounter [facility] note* Diagnosis RLS (restless legs syndrome) Restless legs syndrome (RLS) documented in this encounter [facility] note* Diagnosis Pain in right foot- Primary Pain in limb documented in this encounter [facility] note* Diagnosis RLS (restless legs syndrome)- Primary Restless legs syndrome (RLS) Intractable episodic headache, unspecified headache type documented in this encounter [facility] note* Diagnosis Porokeratosis- Primary Other specified congenital anomaly of skin documented in this encounter [facility] note* Diagnosis RLS (restless legs syndrome) Restless legs syndrome (RLS) documented in this encounter [facility] note* Diagnosis Pain in right foot Pain in limb documented in this encounter [facility] note* Diagnosis Encounter for gynecological examination (general) (routine) without abnormal findings Encounter for screening mammogram for breast cancer documented in this encounter [facility] note* Diagnosis At risk for decreased bone density Other specified conditions influencing health status documented in this encounter [facility] note* Diagnosis Encounter for screening mammogram for malignant neoplasm of breast Other screening mammogram [facility] Diagnosis RLS (restless legs syndrome)- Primary Restless legs syndrome (RLS) documented in this encounter [facility] note* Diagnosis RLS (restless legs syndrome)- Primary Restless legs syndrome (RLS) documented in this encounter [facility] note* Diagnosis Encounter for routine gynecologic examination in Medicare patient- Primary Encounter for screening mammogram for breast cancer documented in this encounter [facility] note* Diagnosis Urinary urgency- Primary Urgency of urination Urinary frequency documented in this encounter [facility] note* Diagnosis RLS (restless legs syndrome)- Primary Restless legs syndrome (RLS) documented in this encounter [facility] note* Diagnosis Urinary frequency- Primary Urinary urgency Urgency of urination Dysuria documented in this encounter [facility] note* Diagnosis RLS (restless legs syndrome)- Primary Restless legs syndrome (RLS) Insomnia, unspecified type documented in this encounter [facility] note* Diagnosis Encounter for routine gynecologic examination in Medicare patient Encounter for screening mammogram for breast cancer documented in this encounter [facility] note* Diagnosis Migraine without aura and without status migrainosus, not intractable- Primary Migraine without aura, without mention of intractable migraine without mention of status migrainosus documented in this encounter [facility] note* Diagnosis RLS (restless legs syndrome)- Primary Restless legs syndrome (RLS) Chronic insomnia Insomnia, unspecified documented in this encounter [facility] for referral (narrative)* Diagnostic Procedure Only (Routine) - Pending Review Specialty Diagnoses / Procedures Referred By Shannan oconnor Referred To Contact [facility] Diagnoses Encounter for gynecological examination (general) (routine) without abnormal findings Encounter for screening mammogram for breast cancer Procedures DARBY SCREENING W MURTAZA SCREENING DIGITAL BREAST TOMOSYNTHESIS BI SCREENING MAMMOGRAPHY BI 2-VIEW BREAST INC CAD Indiana Auguste MD [address] [place] [address] [facility] [address] [place] [phone] Referral ID Status Reason Start Date Expiration Date Visits Requested Visits Authorized [id number] Pending Review Auto-Generat ed Referral 10/04/2022 11/03/2023 1 1 [facility] for referral (narrative)* Diagnostic Procedure Only (Routine) - Pending Review Specialty Diagnoses / Procedures Referred By Contac t Referred To Contact XR IMAGING Diagnoses Pain in right foot Procedures XR FOOT GENERAL 3V AP/LAT/OBL RIGHT RADEX FOOT COMPLETE MINIMUM 3 VIEWS Alessandro Nelson [address] [place] [address] X[facility] Imaging Referral ID Status Reason Start Date Expiration Date Visits Requested Visits Authorized [id number] Pending Review Auto-Generat ed Referral 02/19/2023 03/20/2024 1 1 [facility] for referral (narrative)* Diagnostic Procedure Only (Routine) - Closed Specialty Diagnoses / Procedures Referred By Contac t Referred To Contact XR IMAGING Diagnoses Pain in right foot Procedures XR FOOT GENERAL 3V AP/LAT/OBL RIGHT RADEX FOOT COMPLETE MINIMUM 3 VIEWS Alessandro Nelson [address] [place] [address] [place] [address] Referral ID Status Reason Start Date Expiration Date V isits Requested Visits Authorized [id number] Closed Auto-Generate d Referral 02/19/2023 03/20/2024 1 1 [facility] for referral (narrative)* Diagnostic Procedure Only [...] Indiana Auguste MD [address] [place] [place] [address] [facility] [address] [facility] [facility] [place] [address] Referral ID Status Reason Start Date Expiration Date V isits Requested Visits Authorized [id number] Closed Auto-Generate d Referral 10/04/2022 11/03/[address] [facility] Diagnostic Procedure Only (Routine) - Authorized Specialty Diagnoses / Procedures Referred By Shannan oconnor Referred To Contact [facility] Diagnoses Encounter for routine gynecologic examination in Medicare patient Encounter for screening mammogram for breast cancer Procedures DARBY SCREENING W MURTAZA SCREENING DIGITAL BREAST TOMOSYNTHESIS BI SCREENING MAMMOGRAPHY BI 2-VIEW BREAST INC Indiana Solorio MD [address] [place] [address] [facility] [address] [place] [address] Referral ID Status Reason Start Date Expiration Date Visits Requested Visits Authorized [id number] Authorized Auto-Generat ed Referral 07/22/2024 08/21/2025 1 1 [facility] for referral (narrative)No reason for referral information availableWMercy Health St[facility] Work Phone: Reason for visit Narrative* Diagnostic Procedure Only (Routine) - Closed Specialty Diagnoses / Procedures Referred By Shannan oconnor Referred To Contact XR IMAGING Diagnoses Pain in right foot Procedures XR FOOT GENERAL 3V AP/LAT/OBL RIGHT RADEX FOOT COMPLETE MINIMUM 3 VIEWS Alessandro Nelson [address] [place] [address] [place] [address] Referral ID Status Reason Start Date Expiration Date V isits Requested Visits Authorized [id number] Closed Auto-Generate d Referral 02/19/2023 03/20/2024 1 1 [facility] for visit Narrative* Diagnostic Procedure Only (Routine) - Closed Specialty Diagnoses / Procedures Referred By Shannan oconnor Referred To Contact [facility] Diagnoses Encounter for gynecological examination (general) (routine) without abnormal findings Encounter for screening mammogram for breast cancer Procedures DARBY SCREENING W MURTAZA SCREENING DIGITAL BREAST TOMOSYNTHESIS BI SCREENING MAMMOGRAPHY BI 2-VIEW BREAST INC Indiana Solorio MD [address] [place] [address] [facility] [address] [place] [address] Referral ID Status Reason Start Date Expiration Date V isits Requested Visits Authorized [id number] Closed Auto-Generate d Referral 10/04/2022 11/03/2023 1 1 [facility] for visit Narrative* Diagnostic Procedure Only (Routine) - Closed Specialty Diagnoses / Procedures Referred By Shannan oconnor Referred To Contact XR IMAGING Diagnoses At risk for decreased bone density Procedures DXA-AXIAL SKELETON Indiana Auguste MD [address] [place] [address] [place] [address] Referral ID Status Reason Start Date Expiration Date V isits Requested Visits Authorized [id number] Closed Auto-Generate d Referral 01/21/2024 02/16/2025 1 1 [facility] for visit Narrative* Diagnostic Procedure Only (Routine) - Closed Specialty Diagnoses / Procedures Referred By Shannan oconnor Referred To Contact [facility] Diagnoses Encounter for screening mammogram for malignant neoplasm of breast Procedures DARBY SCREENING W MURATZA SCREENING DIGITAL BREAST TOMOSYNTHESIS BI SCREENING MAMMOGRAPHY BI 2-VIEW BREAST INC CAD Indiana Auguste MD [address] [place] [address] [facility] [address] [place] [address] Referral ID Status Reason Start Date Expiration Date V isits Requested Visits Authorized [id number] Closed Auto-Generate d Referral 01/21/2024 02/16/2025 1 1 [facility] for visit Narrative* Diagnostic Procedure Only (Routine) - Closed Specialty Diagnoses / Procedures Referred By Shannan oconnor Referred To Contact [facility] Diagnoses Encounter for routine gynecologic examination in Medicare patient Encounter for screening mammogram for breast cancer Procedures DARBY SCREENING W MURTAZA SCREENING DIGITAL BREAST TOMOSYNTHESIS BI SCREENING MAMMOGRAPHY BI 2-VIEW BREAST INC CAD Indiana Auguste MD [address] [place] [address] Phone: tel: fax: [facility] [address] [place] [address] Referral ID Status Reason Start Date Expiration Date V isits Requested Visits Authorized [id number] Closed Auto-Generate d Referral 07/22/2024 08/21/2025 1 1 [facility] Summary Purpose Family History No Family History Records Found Relationship Condition Age at Onset Recorded Date/T tu father Myocardial infarction Unknown brother Malignant neoplasm of pancreas Unknown sister Malignant neoplasm of lung Unknown Advance Directives No Advanced Directives Records FoundDocuments on File Type Date Recorded 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 Yes July 05, 2025 9:55am Reason for Referral Specialty Diagnoses / Procedures Referred By Contac t [place]erred [place] [address] [place] [address] Referral ID Status Reason Start Date Expiration Date Visits Re quested Visits Authorized [id number] Closed 1 1 Chief Complaint and Reason for Visit Chief Complaint Admit Date SYNCOPE July 05, 2025 9:45am Additional Source Comments INFORMATION SOURCE (unrecogn ized section and content) DATE CREATED AUTHOR 04/23/2018 [facility] ([place]) DATE CREATED AUTHOR AUTHOR'S ORGANIZ ATION 08/18/2021 [facility] DATE CREATED AUTHOR AUTHOR'S ORGANIZ ATION 12/29/2021 [facility] DATE CREATED AUTHOR AUTHOR'S ORGANIZ ATION 08/29/2022 [facility] DATE CREATED AUTHOR AUTHOR'S ORGANIZ ATION 07/12/2025 [facility] DATE CREATED AUTHOR AUTHOR'S ORGANIZ ATION 07/12/2025 [facility] Care Teams (unrecognized sec tion and content) Comsec Manager Relationship Specialty Start Date End Date Rupali Cline, DO [address] [facility] [place] [address] PCP - General Family Medicine 08/17/20 Comsec Manager Relationship Specialty Start Date End Date Mary Azar DO PCP - General 11/29/09 Comsec Manager Relationship Specialty Start Date End Date Mary Azar DO PCP - General 11/29/09 Comsec Manager Relationship Specialty Start Date End Date Fast Mary A, DO PCP - General 11/29/09 Comsec Manager Relationship Specialty Start Date End Date Fast Mary A, DO PCP - General 11/29/09 Comsec Manager Relationship Specialty Start Date End Date Fast Mary A, DO PCP - General 11/29/09 Comsec Manager Relationship Specialty Start Date End Date Fast Mary A, DO PCP - General 11/29/09 Comsec Manager Relationship Specialty Start Date End Date Rupali Cline, DO [address] [place], [place] [id number] PCP - General Family Medicine 08/17/20 Comsec Manager Relationship Specialty Start Date End Date Rupali Cline, DO [address] [place], [place] [id number] PCP - General Family Medicine 08/17/20 Comsec Manager Relationship Specialty Start Date End Date Doe Mary A, DO PCP - General 11/29/09 Comsec Manager Relationship Specialty Start Date End Date Fast Mary A, DO PCP - General 11/29/09 Comsec Manager Relationship Specialty Start Date End Date Fast, Mary A, DO PCP - General 11/29/09 Comsec Manager Relationship Specialty Start Date End Date Fast, Mary A, DO PCP - General 11/29/09 Comsec Manager Relationship Specialty Start Date End Date Fast, Mary A, DO PCP - General 11/29/09 Comsec Manager Relationship Specialty Start Date End Date FastMary DO PCP - General 11/29/09 Comsec Manager Relationship Specialty Start Date End Date Fast Mary A, DO PCP - General 11/29/09 Comsec Manager Relationship Specialty Start Date End Date Fast Mary A DO PCP - General 11/29/09 Comsec Manager Relationship Specialty Start Date End Date Fast Mary A DO PCP - General 11/29/09 Comsec Manager Relationship Specialty Start Date End Date Mary Azar DO PCP - General 11/29/09 Team Status: Active Member Role Status Dates Dr. Rupali Cline DO Family Provider Active Dr. Rupali Cline DO Primary Care Provider Active Team Status: Inactive Member Role Status Dates Dr. Rupali Cline DO Primary Care Provider, [facility] g Provider Active Comsec Manager Relationship Specialty Start Date End Date Mary Azar DO PCP - General 11/29/09 Comsec Manager Relationship Specialty Start Date End Date Mary Azar DO PCP - General 11/29/09 Comsec Manager Relationship Specialty Start Date End Date Fast Mary A DO PCP - General 11/29/09 Comsec Manager Relationship Specialty Start Date End Date Mary Azar DO PCP - General 11/29/09 Comsec Manager Relationship Specialty Start Date End Date Rupali Cline DO [address] [place] [address] PCP - General Family Medicine 03/17/24 Comsec Manager Relationship Specialty Start Date End Date Rupali Cline [address] [place] [address] PCP - General Family Medicine 03/17/24 Comsec Manager Relationship Specialty Start Date End Date Mary AzarDO PCP - General 11/29/09 03/16/24 SonRupali taiDO [address] [place] [address] PCP - General Family Medicine 03/17/24 Comsec Manager Relationship Specialty Start Date End Date SonRupali baileyDO [address] [place] [address] PCP - General Family Medicine 03/17/24 Comsec Manager Relationship Specialty Start Date End Date SonRupali baileyDO [address] [place] [address] PCP - General Family Medicine 03/17/24 Comsec Manager Relationship Specialty Start Date End Date SonRupaliDO [address] [place] [phone] PCP - General Family Medicine 03/17/24 Comsec Manager Relationship Specialty Start Date End Date Rupali Cline DarrenDO [address] [place] [phone] PCP - General Family Medicine 03/17/24 Comsec Manager Relationship Specialty Start Date End Date Rupali Cline DO [address] [place] [phone] PCP - General Family Medicine 03/17/24 [employer] Manager Relationship Specialty Start Date End Date Rupali Cline DO [address] [place] [phone] PCP - General Family Medicine 03/17/24 Com[employer] Manager Relationship Specialty Start Date End Date Rupali Cline [address] [place] [phone] PCP - General Family Medicine 03/17/24 Comsec Manager Relationship Specialty Start Date End Date Rupali Cline [address] [place] [phone] PCP - General Family Medicine 03/17/24 Comsec Manager Relationship Specialty Start Date End Date Rupali Cline [address] [place] [phone] PCP - General Family Medicine 03/17/24 Team Status: Active Member Role/Relationship Status Dates Dr. Rupali Cline DO Primary Care Provider Active Team Status: Inactive Member Role/Relationship Status Dates Dr. Rupali Cline DO Primary Care Provider Active Start: July 05, 2025 End: July 05, 2025 Dr. Carlton Vasquez MD Emergency Provider Active Start: July 05, 2025 End: July 05, 2025 [employer] Manager Relationship Specialty Start Date End Date Rupali Cline DO [address] [place] [phone] PCP - General Family Medicine 03/17/24 Source Comments (unrecognize d section and content) In the event this informatio n is protected by the Federal Confidentiality of Alcohol and Drug Abuse Patient Records regulations: The Federal rules restrict any use of the information to criminally investigate or prosecute any alcohol or drug abuse patient.[facility] the event this information is protected by the Federal Confidentiality of Alcohol and Drug Abuse Patient Records regulations: The Federal rules restrict any use of the information to criminally investigate or prosecute any alcohol or drug abuse patient.[facility] CenterIn the event this information is protected by the Federal Confidentiality of Alcohol and Drug Abuse Patient Records regulations: The Federal rules restrict any use of the information to criminally investigate or prosecute any alcohol or drug abuse patient.[facility] CenterIn the event this information is protected by the Federal Confidentiality of Alcohol and Drug Abuse Patient Records regulations: The Federal rules restrict any use of the information to criminally investigate or prosecute any alcohol or drug abuse patient.[facility] CenterIn the event this information is protected by the Federal Confidentiality of Alcohol and Drug Abuse Patient Records regulations: The Federal rules restrict any use of the information to criminally investigate or prosecute any alcohol or drug abuse patient.[facility] CenterIn the event this information is protected by the Federal Confidentiality of Alcohol and Drug Abuse Patient Records regulations: The Federal rules restrict any use of the information to criminally investigate or prosecute any alcohol or drug abuse patient.[facility] CenterIn the event this information is protected by the Federal Confidentiality of Alcohol and Drug Abuse Patient Records regulations: The Federal rules restrict any use of the information to criminally investigate or prosecute any alcohol or drug abuse patient.[facility] CenterIn the event this information is protected by the Federal Confidentiality of Alcohol and Drug Abuse Patient Records regulations: The Federal rules restrict any use of the information to criminally investigate or prosecute any alcohol or drug abuse patient.[facility] CenterIn the event this information is protected by the Federal Confidentiality of Alcohol and Drug Abuse Patient Records regulations: The Federal rules restrict any use of the information to criminally investigate or prosecute any alcohol or drug abuse patient.[facility] CenterIn the event this information is protected by the Federal Confidentiality of Alcohol and Drug Abuse Patient Records regulations: The Federal rules restrict any use of the information to criminally investigate or prosecute any alcohol or drug abuse patient.[facility] CenterIn the event this information is protected by the Federal Confidentiality of Alcohol and Drug Abuse Patient Records regulations: The Federal rules restrict any use of the information to criminally investigate or prosecute any alcohol or drug abuse patient.[facility] CenterIn the event this information is protected by the Federal Confidentiality of Alcohol and Drug Abuse Patient Records regulations: The Federal rules restrict any use of the information to criminally investigate or prosecute any alcohol or drug abuse patient.[facility] CenterIn the event this information is protected by the Federal Confidentiality of Alcohol and Drug Abuse Patient Records regulations: The Federal rules restrict any use of the information to criminally investigate or prosecute any alcohol or drug abuse patient.[facility] CenterIn the event this information is protected by the Federal Confidentiality of Alcohol and Drug Abuse Patient Records regulations: The Federal rules restrict any use of the information to criminally investigate or prosecute any alcohol or drug abuse patient.[facility] CenterIn the event this information is protected by the Federal Confidentiality of Alcohol and Drug Abuse Patient Records regulations: The Federal rules restrict any use of the information to criminally investigate or prosecute any alcohol or drug abuse patient.[facility] CenterIn the event this information is protected by the Federal Confidentiality of Alcohol and Drug Abuse Patient Records regulations: The Federal rules restrict any use of the information to criminally investigate or prosecute any alcohol or drug abuse patient.[facility] CenterIn the event this information is protected by the Federal Confidentiality of Alcohol and Drug Abuse Patient Records regulations: The Federal rules restrict any use of the information to criminally investigate or prosecute any alcohol or drug abuse patient.[facility] CenterIn the event this information is protected by the Federal Confidentiality of Alcohol and Drug Abuse Patient Records regulations: The Federal rules restrict any use of the information to criminally investigate or prosecute any alcohol or drug abuse patient.[facility] CenterIn the event this information is protected by the Federal Confidentiality of Alcohol and Drug Abuse Patient Records regulations: The Federal rules restrict any use of the information to criminally investigate or prosecute any alcohol or drug abuse patient.[facility] CenterIn the event this information is protected by the Federal Confidentiality of Alcohol and Drug Abuse Patient Records regulations: The Federal rules restrict any use of the information to criminally investigate or prosecute any alcohol or drug abuse patient.[facility] CenterIn the event this information is protected by the Federal Confidentiality of Alcohol and Drug Abuse Patient Records regulations: The Federal rules restrict any use of the information to criminally investigate or prosecute any alcohol or drug abuse patient.[facility] CenterIn the event this information is protected by the Federal Confidentiality of Alcohol and Drug Abuse Patient Records regulations: The Federal rules restrict any use of the information to criminally investigate or prosecute any alcohol or drug abuse patient.[facility] CenterIn the event this information is protected by the Federal Confidentiality of Alcohol and Drug Abuse Patient Records regulations: The Federal rules restrict any use of the information to criminally investigate or prosecute any alcohol or drug abuse patient.[facility] CenterIn the event this information is protected by the Federal Confidentiality of Alcohol and Drug Abuse Patient Records regulations: The Federal rules restrict any use of the information to criminally investigate or prosecute any alcohol or drug abuse patient.[facility] CenterIn the event this information is protected by the Federal Confidentiality of Alcohol and Drug Abuse Patient Records regulations: The Federal rules restrict any use of the information to criminally investigate or prosecute any alcohol or drug abuse patient.[facility] CenterIn the event this information is protected by the Federal Confidentiality of Alcohol and Drug Abuse Patient Records regulations: The Federal rules restrict any use of the information to criminally investigate or prosecute any alcohol or drug abuse patient.[facility] CenterIn the event this information is protected by the Federal Confidentiality of Alcohol and Drug Abuse Patient Records regulations: The Federal rules restrict any use of the information to criminally investigate or prosecute any alcohol or drug abuse patient.[facility] CenterIn the event this information is protected by the Federal Confidentiality of Alcohol and Drug Abuse Patient Records regulations: The Federal rules restrict any use of the information to criminally investigate or prosecute any alcohol or drug abuse patient.[facility] CenterIn the event this information is protected by the Federal Confidentiality of Alcohol and Drug Abuse Patient Records regulations: The Federal rules restrict any use of the information to criminally investigate or prosecute any alcohol or drug abuse patient.[facility] CenterIn the event this information is protected by the Federal Confidentiality of Alcohol and Drug Abuse Patient Records regulations: The Federal rules restrict any use of the information to criminally investigate or prosecute any alcohol or drug abuse patient.[facility] CenterIn the event this information is protected by the Federal Confidentiality of Alcohol and Drug Abuse Patient Records regulations: The Federal rules restrict any use of the information to criminally investigate or prosecute any alcohol or drug abuse patient.[facility] CenterIn the event this information is protected by the Federal Confidentiality of Alcohol and Drug Abuse Patient Records regulations: The Federal rules restrict any use of the information to criminally investigate or prosecute any alcohol or drug abuse patient.[facility] CenterIn the event this information is protected by the Federal Confidentiality of Alcohol and Drug Abuse Patient Records regulations: The Federal rules restrict any use of the information to criminally investigate or prosecute any alcohol or drug abuse patient.[facility] CenterIn the event this information is protected by the Federal Confidentiality of Alcohol and Drug Abuse Patient Records regulations: The Federal rules restrict any use of the information to criminally investigate or prosecute any alcohol or drug abuse patient.[facility] CenterIn the event this information is protected by the Federal Confidentiality of Alcohol and Drug Abuse Patient Records regulations: The Federal rules restrict any use of the information to criminally investigate or prosecute any alcohol or drug abuse patient.[facility] CenterIn the event this information is protected by the Federal Confidentiality of Alcohol and Drug Abuse Patient Records regulations: The Federal rules restrict any use of the information to criminally investigate or prosecute any alcohol or drug abuse patient.[facility] CenterIn the event this information is protected by the Federal Confidentiality of Alcohol and Drug Abuse Patient Records regulations: The Federal rules restrict any use of the information to criminally investigate or prosecute any alcohol or drug abuse patient.[facility] CenterIn the event this information is protected by the Federal Confidentiality of Alcohol and Drug Abuse Patient Records regulations: The Federal rules restrict any use of the information to criminally investigate or prosecute any alcohol or drug abuse patient.[facility] CenterIn the event this information is protected by the Federal Confidentiality of Alcohol and Drug Abuse Patient Records regulations: The Federal rules restrict any use of the information to criminally investigate or prosecute any alcohol or drug abuse patient.[facility] CenterIn the event this information is protected by the Federal Confidentiality of Alcohol and Drug Abuse Patient Records regulations: The Federal rules restrict any use of the information to criminally investigate or prosecute any alcohol or drug abuse patient.[facility] CenterIn the event this information is protected by the Federal Confidentiality of Alcohol and Drug Abuse Patient Records regulations: The Federal rules restrict any use of the information to criminally investigate or prosecute any alcohol or drug abuse patient.[facility] CenterIn the event this information is protected by the Federal Confidentiality of Alcohol and Drug Abuse Patient Records regulations: The Federal rules restrict any use of the information to criminally investigate or prosecute any alcohol or drug abuse patient.[facility] CenterIn the event this information is protected by the Federal Confidentiality of Alcohol and Drug Abuse Patient Records regulations: The Federal rules restrict any use of the information to criminally investigate or prosecute any alcohol or drug abuse patient.[facility] CenterIn the event this information is protected by the Federal Confidentiality of Alcohol and Drug Abuse Patient Records regulations: The Federal rules restrict any use of the information to criminally investigate or prosecute any alcohol or drug abuse patient.[facility] CenterIn the event this information is protected by the Federal Confidentiality of Alcohol and Drug Abuse Patient Records regulations: The Federal rules restrict any use of the information to criminally investigate or prosecute any alcohol or drug abuse patient.[facility] CenterIn the event this information is protected by the Federal Confidentiality of Alcohol and Drug Abuse Patient Records regulations: The Federal rules restrict any use of the information to criminally investigate or prosecute any alcohol or drug abuse patient.[facility] CenterIn the event this information is protected by the Federal Confidentiality of Alcohol and Drug Abuse Patient Records regulations: The Federal rules restrict any use of the information to criminally investigate or prosecute any alcohol or drug abuse patient.[facility] CenterIn the event this information is protected by the Federal Confidentiality of Alcohol and Drug Abuse Patient Records regulations: The Federal rules restrict any use of the information to criminally investigate or prosecute any alcohol or drug abuse patient.[facility] CenterIn the event this information is protected by the Federal Confidentiality of Alcohol and Drug Abuse Patient Records regulations: The Federal rules restrict any use of the information to criminally investigate or prosecute any alcohol or drug abuse patient.[facility] CenterIn the event this information is protected by the Federal Confidentiality of Alcohol and Drug Abuse Patient Records regulations: The Federal rules restrict any use of the information to criminally investigate or prosecute any alcohol or drug abuse patient.[facility] CenterIn the event this information is protected by the Federal Confidentiality of Alcohol and Drug Abuse Patient Records regulations: The Federal rules restrict any use of the information to criminally investigate or prosecute any alcohol or drug abuse patient.[facility] CenterIn the event this information is protected by the Federal Confidentiality of Alcohol and Drug Abuse Patient Records regulations: The Federal rules restrict any use of the information to criminally investigate or prosecute any alcohol or drug abuse patient.[facility] CenterIn the event this information is protected by the Federal Confidentiality of Alcohol and Drug Abuse Patient Records regulations: The Federal rules restrict any use of the information to criminally investigate or prosecute any alcohol or drug abuse patient.[facility] CenterIn the event this information is protected by the Federal Confidentiality of Alcohol and Drug Abuse Patient Records regulations: The Federal rules restrict any use of the information to criminally investigate or prosecute any alcohol or drug abuse patient.[facility] CenterIn the event this information is protected by the Federal Confidentiality of Alcohol and Drug Abuse Patient Records regulations: The Federal rules restrict any use of the information to criminally investigate or prosecute any alcohol or drug abuse patient.[facility] Reason for Visit (unrecogniz ed section and [...] sectionGoals may be documented in an alternate sectionGoals may be documented in an [...] BE BASED ON THE PRIMARY CLINICAL RECORDS. [facility] [employer] [facility]. provides no warranty or guarantee of the accuracy or completeness of information in this document.
--- OUTSIDE RECORDS SUMMARY | 2025-07-18 01:32 | XMS RPT_ITS | CCD ---
Author Organization [facility] Care Team Providers Care Fish Fryer Name Role Phone Deliciamichael Ana Unavailable [phone] Miko Anne Taz Unavailable SANJANA GARNICA Unavailable Unavailable RUPALI CLINE Unavailable Unavailable PAVAN JAMES Attending Unavailable RUPALI CLINE Primary Care Unavailable Rupali Cline DO Primary Care Provider Fast DO, Mary A Primary Care Provider Fast DO, Mary A Primary Care Provider Fast DO, Mary A Primary Care Provider Rupali Cline DO Primary Care Provider [phone] RUPALI CLINE Primary Care Unavailable LAYLA PALOMINO [...] Attending Unavailable Rupali Cline Primary Care Unavailable RUPALI CLINE Primary Care [...] (3 sources) atorvastatin drug allergy 05-29-20 [facility] Work Phone: (3 sources) pravastatin drug allergy 05-29-20 16 Myalgia [facility] Work Phone: (20 sources) atorvastatin; Translations: [ATORVASTATIN] Drug Allergy 05-29-20 Other: See Comments [facility] (20 sources) Pravastatin; Translations: [PRAVASTATIN] Drug Allergy 05-29-20 Other: See Comments [facility] (20 sources) SEASONAL [Other] Propensity to adverse reactions 09-26-20 [facility] Work Phone: Medications Current Medications Medication [...] mouth daily Vitafusion brand . 0 Active Es-Xy-Qiba-Fa-Ca Carb-Vit K (2 sources) Start: 07-18-20 Oz-Qp-Bvqo-Fa-Ca Carb-Vit K Active 1 EACH PO DAILY July 18, 2019 12:00am Fg-Eu-Yiov-Fa-Ca Carb-Vit K 1 EACH tablet (1 source) Start: 07-18-20 take 1 tablet by mouth once daily Ht-Yi-Totk-Fa-Ca Carb-Vit K 1 EACH tablet Active 1 [...] as needed for migraine headache SUMATRIPTAN SUCCINATE [id number] Rupali Cline DO Comment on above: Take [...] to two tablets by mouth daily CALCIUM [id number] Rupali Darren [facility] emollient combination no.61 (COCONUT OIL [...] LINZESS 145 MCG CAPS as needed LINACLOTIDE [id number] Talita Cheatham Alvertovalerie Start: 01-07-2015 End: 03-07-2016 LINZESS 145 MCG CAPS as need ed LINACLOTIDE [id number] Rupali Cline DO multivitamin (3 sources) Start: 03-07-2016 take 1 tablet by mouth once daily MULTI-VITAMIN TABS One tablet by mouth daily MULTIPLE VITAMIN [id number] Rupali A Son DO phenazopyridine hydrochloride 200 [...] One tablet by mouth daily PRAVASTATIN SODIUM [id number] Rupali Banks [facility] Turmeric Root Extract (3 sources) [...] 2024 Ferritin [Mass/Vol] 151.0 ng/mL Normal 14.7-205.1 [facility] Comment on above: Order Comment: Speci men Type: BLOOD SPECIMENOrdering Facility: [facility] Address: [address] [place] [address] Performed By: #### 5 0190-8, 2276-4 ####[facility] LABCLIA [id number] [place] [address] [place] Iron and Iron binding capaci ty panelon 07-10-2025 Iron [Mass/Vol] 65 ug/dL Normal 41-186 [facility] Comment on above: Order Comment: Speci men Type: BLOOD SPECIMENOrdering Facility: [facility] Address: [address] [place] [address] Performed By: #### 5 0190-8, 6-4 ####[facility] LABCLIA [id number] [place] [id number] [place] Iron binding capacity [Mass/Vol] 229 ug/dL Low 232-386 [facility] Comment on above: Order Comment: Speci men Type: BLOOD SPECIMENOrdering Facility: [facility] Address: [address] [place] [address] Performed By: #### 5 0190-8, 2275-4 ####[facility] LABIA [id number] [place] [address] [place] Iron/TIBC [Molar ratio] 28.4 % Normal 15.0-57.0 [facility] Comment on above: Order Comment: Speci men Type: BLOOD SPECIMENOrdering Facility: [facility] Address: [address] [place] [address] Performed By: #### 5 0190-8, 2275-4 ####[facility] LABIA [id number] [place] [id number] [place] 12 Lead EKGon 07-05-2025 12 Lead EKG [facility] Cardiovascular Services [address] [place] [address] 12 Lead EKG 07/05/25 1015 MR#: [id number] Acct: [id number] Name: BALDO GRANT Rep #: [id number] : 1940 85 From: Kenn Chun MD [...] rhythm Normal ECG Confirmed by Kenn Chun ([id number]), assignment editor ELIO PARRISH ([id number]) on 07/06/2025 9:48:38 AM Referred By: Confirmed By: Kenn Chun 07/06/25947 Date Kenn Chun MD CC: Dr. Carlton Vasquez MD; Dr. Rupali Cline DO Signed Normal [facility] Absolute lymphocyte countOrd ered By: Carlton Vasquez on 07-05-2025 Lymphocytes Auto (Unsp spec) [#/Vol] 1.62 10*3/uL 0.83-4.51 [facility] Absolute neutrophil countOrd ered By: Carlton Vasquez on 07-05-2025 Neutrophils (Bld) [#/Vol] 2.5 10*3/uL 2.0-7.7 [facility] Anion gap in Serum or Plasma Ordered By: Carlton Vasquez on 07-05-2025 Anion gap [Moles/Vol] 10 mmol/L 5-15 [facility] Automated lymphocyte count a s percentage of total leukocytesOrdered By: Carlton Vasquez on 07-05-2025 Lymphocytes/100 WBC Auto (Unsp spec) 34.2 % -41 [facility] BUN/creatinine ratioOrdered By: Carlton Vasquez on 07-05-2025 Urea nitrogen/Creatinine [Mass ratio] 16.2 mg/mg - [facility] Basic Metabolic Profile (BMP )on 07-05-2025 BUN/CRE 16.2 RATIO Normal - [facility] Comment on above: Performed By: #### L 506.1000, L500.4050, L100.0100, L500.4100 #### [facility] [address] [place], [address] Calcium [Mass/Vol] 9.1 mg/dL Normal 7.6-11.0 [facility] Comment on above: Performed By: #### L 506.1000, L500.4050, L100.0100, L500.4100 #### [facility] [address] [place], [address] Chloride [Moles/Vol] 105 mmol/L Normal 98-108 [facility] Comment on above: Performed By: #### L 506.1000, L500.4050, L100.0100, L500.4100 #### [facility] [address] [place], [address] CO2 [Moles/Vol] 23.5 mmol/L Normal 21.0-32.0 [facility] Comment on above: Performed By: #### L 506.1000, L500.4050, L100.0100, L500.4100 #### [facility] [address] [place], [address] Creatinine [Mass/Vol] 0.76 mg/dL Normal 0.70-1.20 [facility] Comment on above: Performed By: #### L 506.1000, L500.4050, L100.0100, L500.4100 #### [facility] [address] [place], [address] ECRCL 48.84 ml/min Low 50-250 [facility] Comment on above: Performed By: #### L 506.1000, L500.4050, L100.0100, L500.4100 #### [facility] [address] [place], [address] GAP 10 Normal 5-15 [facility] Comment on above: Performed By: #### L 506.1000, L500.4050, L100.0100, L500.4100 #### [facility] [address] [place], [address] GFR/1.73 sq M.predicted among non-blacks MDRD (S/P/Bld) [Vol rate/Area] 78 mL/min/{1.73_m2} Normal >60 [facility] Comment on above: Result Comment: mL/m in/1.73m2 CKD-EPI Creatinine Equation (2020) Performed By: #### L 506.1000, L500.4050, L100.0100, L500.4100 #### [facility] [address] [place], [address] Glucose [Mass/Vol] 106 mg/dL High 70-99 [facility] Comment on above: Performed By: #### L 506.1000, L500.4050, L100.0100, L500.4100 #### [facility] [address] [place], [address] Potassium [Moles/Vol] 4.0 mmol/L Normal 3.3-5.1 [facility] Comment on above: Performed By: #### L 506.1000, L500.4050, L100.0100, L500.4100 #### [facility] [address] [place], [address] Sodium [Moles/Vol] 138 mmol/L Normal 133-145 [facility] Comment on above: Performed By: #### L 506.1000, L500.4050, L100.0100, L500.4100 #### [facility] [address] [place], [address] Urea nitrogen [Mass/Vol] 12 mg/dL Normal 4-19 [facility] Comment on above: Performed By: #### L 506.1000, L500.4050, L100.0100, L500.4100 #### [facility] [address] [place], [address] Basophil percentageOrdered B y: Carlton Vasquez on 07-05-2025 Basophils/100 WBC (Bld) 1.5 % High 0-1 [facility] CBC W/Diff, Automatedon Absolute Lymph 1.62 X10 3/uL Normal 0.83-4.51 [facility] Comment on above: Performed By: #### L 506.1000, L500.4050, L100.0100, L500.4100 #### [facility] [address] [place], [address] Absolute Neut 2.5 X10 3/uL Normal 2.0-7.7 [facility] Comment on above: Performed By: #### L 506.1000, L500.4050, L100.0100, L500.4100 #### [facility] [address] [place], [address] Basophils/100 WBC (Bld) 1.5 % High 0-1 [facility] Comment on above: Performed By: #### L 506.1000, L500.4050, L100.0100, L500.4100 #### [facility] [address] [place], [address] Eosinophils/100 WBC (Bld) 0.8 % Normal 0-5 [facility] Comment on above: Performed By: #### L 506.1000, L500.4050, L100.0100, L500.4100 #### [facility] [address] [place], [address] Erythrocyte distribution width (RBC) [Ratio] 12.7 % Normal 11.6-14.6 [facility] Comment on above: Performed By: #### L 506.1000, L500.4050, L100.0100, L500.4100 #### [facility] [address] [place], [address] Hematocrit (Bld) [Volume fraction] 37.6 % Normal 37-47 [facility] Comment on above: Performed By: #### L 506.1000, L500.4050, L100.0100, L500.4100 #### [facility] [address] [place], [address] Hemoglobin (Bld) [Mass/Vol] 12.9 g/dL Normal 12.0-15.0 [facility] Comment on above: Performed By: #### L 506.1000, L500.4050, L100.0100, L500.4100 #### [facility] [address] [place], [address] IG% 0.800 Normal 0.0-0.9 [facility] Comment on above: Result Comment: IG% - Immature Granulocytes (promyelocytes, myelocytes and metamyelocytes) > 1% indicates that a LEFT SHIFT is Present. Performed By: #### L 506.1000, L500.4050, L100.0100, L500.4100 #### [facility] [address] [place], [address] Lymphocytes/100 WBC (Bld) 34.2 % Normal 19-41 [facility] Comment on above: Performed By: #### L 506.1000, L500.4050, L100.0100, L500.4100 #### [facility] [address] [place], [address] MCH (RBC) [Entitic mass] 32.4 pg High 27.0-32.0 [facility] Comment on above: Performed By: #### L 506.1000, L500.4050, L100.0100, L500.4100 #### [facility] [address] [place], [address] MCHC (RBC) [Mass/Vol] 34.3 g/dL Normal 32-36 [facility] Comment on above: Performed By: #### L 506.1000, L500.4050, L100.0100, L500.4100 #### [facility] [address] [place], [address] MCV (RBC) [Entitic vol] 94.5 fL Normal 81-99 [facility] Comment on above: Performed By: #### L 506.1000, L500.4050, L100.0100, L500.4100 #### [facility] [address] [place], [address] Monocytes/100 WBC (Bld) 9.9 % Normal 0-10 [facility] Comment on above: Performed By: #### L 506.1000, L500.4050, L100.0100, L500.4100 #### [facility] [address] [place], [address] Neutrophils/100 WBC (Bld) 52.8 % Normal 47-70 [facility] Comment on above: Performed By: #### L 506.1000, L500.4050, L100.0100, L500.4100 #### [facility] [address] [place], [address] Nucleated RBC (Bld) [#/Vol] 0 10*3/uL Normal 0-5 [facility] Comment on above: Performed By: #### L 506.1000, L500.4050, L100.0100, L500.4100 #### [facility] [address] [place], [address] Platelet mean volume (Bld) [Entitic vol] 9.8 fL Normal 6.2-12.0 [facility] Comment on above: Performed By: #### L 506.1000, L500.4050, L100.0100, L500.4100 #### [facility] [address] [place], [address] Platelets (Bld) [#/Vol] 253 10*3/uL Normal 150-450 [facility] Comment on above: Performed By: #### L 506.1000, L500.4050, L100.0100, L500.4100 #### [facility] [address] [place], [address] RBC (Bld) [#/Vol] 3.98 10*6/uL Low 4.2-5.4 [facility] Comment on above: Performed By: #### L 506.1000, L500.4050, L100.0100, L500.4100 #### [facility] [address] [place], [address] RDW SD 44.2 fl High 35.1-43.9 [facility] Comment on above: Performed By: #### L 506.1000, L500.4050, L100.0100, L500.4100 #### [facility] [address] [place], [address] WBC (Bld) [#/Vol] 4.7 10*3/uL Normal 4.4-11.0 [facility] Comment on above: Performed By: #### L 506.1000, L500.4050, L100.0100, L500.4100 #### [facility] [address] [place], [address] Carbon dioxide, total [Moles /volume] in Central venous bloodOrdered By: Carlton Vasquez on 07-05-2025 CO2 [Moles/Vol] 23.5 mmol/L 21.0-32.0 [facility] Chest 1 View (Portable)on Chest 1 View (Portable) [facility] Imaging Services [address] [place] [address] Chest 1 View (Portable) MR#: [id number] Acct: [id number] Name: BALDO GRANT Rep #: [id number] : 1940 F 85 From: Kenn Trujillo MD PCP: Dr. Rupali Cline, DO Status: [facility] ER Study: Chest 1 View (Portable) Date of Exam: 07/05/25 Exam# [id number] Ordering Dr: Carlton Vasquez MD PROCEDURE: CHEST [...] Negative for acute cardiopulmonary disease. Reading Location: [id number] CC: Dr. Carlton Vasquez MD; Dr. Rupali Cline DO [employer] Supervisor: Signed [facility] Chloride assayOrdered By: Mallory Vasquez on 07-05-2025 Chloride [Moles/Vol] 105 mmol/L 98-108 [facility] D-Dimer Quantitative (DVT/PE )on 07-05-2025 D-DIMER QUANT 0.72 FEU/ug/m Invalid Interpretation Code 0.27-0.49 [facility] Comment on above: Result Comment: D-Di shireen ELEVATED (>0.49): Additional studies and clinical assessments are indicated to conclude diagnosis of: Deep Vein Thrombosis (DVT) or Pulmonary Embolism (PE) CRITICAL VALUE CALLED TO WILLY LIRIANO 07/05/25 1026 Jaciel Olivares. RESULTS READ BACK BY SAME. Performed By: #### L 300.8000 #### [facility] [address] [place], [address] Emergency Department Summary on 07-05-2025 Emergency Department Summary [facility] Medical Records Department [address] [place] [address] Emergency Department Summary 07/05/25 MR#: [id number] Acct: [id number] Name: BALDO GRANT Rep #: [id number] : 1940 85 From: Carlton Vasquez MD [...] 60s. She was awake at that time. [facility] Medical History Osteopenia Hyperlipidemia Migraines Back problem Arthritis Seasonal allergies Hypertension Home Medications ???Medication ???Instructions ???Recorded ???Last Taken ???Type biotin 5 mg tablet 3 mg PO BID 07/18/19 Unknown Histo ry calcium 600 mg (as 1 ea PO DAILY supplement 07/18/19 Unknown History carbonate)-vitamin D3 10 mcg (400 unit) tablet ezetimibe 10 mg tablet 10 mg PO DAILY cholesterol 9 Unknown History hazhomno-nmj-wamx-FA-Ca carb-vit K 1 ea PO DAILY vitamin [...] Allergies Allergy Verified 07/05/25 09:45 Family History (Reviewed 09/05/21 @ 15:20 by Linda Dougherty [employer]) Father Myocardial infarction Brother Pancreatic cancer Sister [...] Physical Exam (more content not included)... Normal [facility] Eosinophil percentageOrdered By: Carlton Vasquez on 07-05-2025 Eosinophils/100 WBC (Bld) 0.8 % 0-5 [facility] Erythrocyte distribution wid th ratioOrdered By: Carlton Vasquez on 07-05-2025 Erythrocyte distribution width (RBC) [Ratio] 12.7 % 11.6-14.6 [facility] Erythrocyte distribution wid th standard deviationOrdered By: Carlton Vasquez on 07-05-2025 Erythrocyte distribution width (RBC) [Ratio] 44.2 fl High 35.1-43.9 [facility] Glomerular filtration rate ( GFR) estimation/1.73 sq m using serum, plasma, or whole bOrdered By: Carlton Vasquez on 07-05-2025 GFR/1.73 sq M.predicted among non-blacks MDRD (S/P/Bld) [Vol rate/Area] 78 mL/min/{1.73_m2} >60 [facility] Comment on above: mL/min/1.73m2 CKD-EP I Creatinine Equation (2020) Hematocrit Auto (Bld) [Volum e fraction]Ordered By: Carlton Vasquez on 07-05-2025 Hematocrit (Bld) [Volume fraction] 37.6 % 37-47 [facility] Hemoglobin measurementOrdere d By: Carlton Vasquez on 07-05-2025 Hemoglobin (Bld) [Mass/Vol] 12.9 g/dL 12.0-15.0 [facility] Immature granulocytes/100 WB C Auto (Bld)Ordered By: Carlton Vasquez on 07-05-2025 Immature granulocytes/100 WBC (Bld) 0.800 % 0.0-0.9 [facility] Comment on above: IG% - Immature Granu locytes (promyelocytes, myelocytes and metamyelocytes) > 1% indicates that a LEFT SHIFT is Present. L501.4021on 07-05-2025 Trop T High Sen 9 ng/L Normal <=14 [facility] Comment on above: Performed By: #### L 506.1000, L500.4050, L100.0100, L500.4100 #### [facility] [address] [place], [place] [address]. [place], [place], [id number] MCV (mean corpuscular volume ) determinationOrdered By: Carlton Vasquez on 07-05-2025 MCV (RBC) [Entitic vol] 94.5 fL 81-99 [facility] Mean corpuscular hemoglobin (MCH) determinationOrdered By: Carlton Vasquez on 07-05-2025 MCH (RBC) [Entitic mass] 32.4 pg High 27.0-32.0 [facility] Mean corpuscular hemoglobin concentration (MCHC) determinationOrdered By: Carlton Vasquez on 07-05-2025 MCHC (RBC) [Mass/Vol] 34.3 g/dL 32-36 [facility] Mean platelet volume determi nationOrdered By: Carlton Vasquez on 07-05-2025 Platelet mean volume (Bld) [Entitic vol] 9.8 fL 6.2-12.0 [facility] Monocyte percentageOrdered B y: Carlton Vasquez on 07-05-2025 Monocytes/100 WBC (Bld) 9.9 % 0-10 [facility] Neutrophil percentageOrdered By: Carlton Vasquez on 07-05-2025 Neutrophils/100 WBC (Bld) 52.8 % 47-70 [facility] Nucleated red blood cell per centageOrdered By: Carlton Vasquez on 07-05-2025 Nucleated RBC/100 WBC (Bld) [Ratio] 0 % 0-5 [facility] Platelet countOrdered By: Mallory Vasquez on 07-05-2025 Platelets (Bld) [#/Vol] 253 10*3/uL 150-450 [facility] Potassium measurement (mass/ volume)Ordered By: Carlton Vasquez on 07-05-2025 Potassium (Unsp spec) [Mass/Vol] 4.0 mmol/L 3.3-5.1 [facility] RBC Auto (Bld) [#/Vol]Ordere d By: Carlton Vasquez on 07-05-2025 RBC (Bld) [#/Vol] 3.98 10*6/uL Low 4.2-5.4 [facility] Serum creatinine measurement (mass/volume)Ordered By: Carlton Vasquez on 07-05-2025 Creatinine [Mass/Vol] 0.76 mg/dL 0.70-1.20 [facility] Serum glucose measurement (m ass/volume)Ordered By: Carlton Vasquez on 07-05-2025 Glucose [Mass/Vol] 106 mg/dL High 70-99 [facility] Serum or plasma calcium jairo urement (mass/volume)Ordered By: Carlton Vasquez on 07-05-2025 Calcium [Mass/Vol] 9.1 mg/dL 7.6-11.0 [facility] Serum or plasma urea nitroge n measurement (mass/volume)Ordered By: Carlton Vasuqez on 07-05-2025 Urea nitrogen [Mass/Vol] 12 mg/dL 4-19 [facility] Sodium levelOrdered By: George Vasquez on 07-05-2025 Sodium [Moles/Vol] 138 mmol/L 133-145 [facility] Troponin T HS 2 HRon 025 Trop T High Sen 9 ng/L Normal <=14 [facility] Comment on above: Performed By: #### L 499.0042 #### [facility] [address] [place], [place], [id number] Troponin T HS 4 HRon 025 Trop T High Sen Normal <=14 [facility] Comment on above: Result Comment: DEP FROM ED Performed By: #### L 499.0043 #### [facility] [address] [place], [place], [address] Troponin T.cardiac [Mass/vol ume] in Serum or Plasma by High sensitivity methodOrdered By: Carlton Vasquez on 07-05-2025 Troponin T.cardiac High sensitivity method [Mass/Vol] 9 ng/L <14 [facility] Troponin T.cardiac High sensitivity method [Mass/Vol] 9 ng/L <14 [facility] White blood cell (WBC) count Ordered By: Carlton Vasquez on 07-05-2025 WBC (Bld) [#/Vol] 4.7 10*3/uL 4.4-11.0 [facility] CNPMichaela 06-12-2025 CNPN Telephone (COINLAB) -------- BALDO GRANT ([id number]) 1940 F Date Time Provider Department 06/12/25 [...] Encounter Status:Closed by [place] BROWN on 06/17/25 [facility] Demetrius 05-18-2025 BRITTNEY Telephone (SLEWST) -------- BALDO GRANT ([id number]) 1940 F Date Time Provider Department 05/18/25 [place] BR[place] During your visit today, we recorded the following information about you: [place] Brown APRN.BRITTNEY 05/18/2025 10:33 AM Signed Please print appeal letter so I can sign for [facility] APRN.Jacque Salcedo LPN 05/18/2025 4:25 PM Signed Appeal letter faxed to [facility] Appeals Team. Jacque Taylor LPN Allergies [...] Encounter Status:Closed by JACQUE TAYLOR on 05/18/25 [facility] Demetrius 02-09-2025 CNPN Telephone (MNOPRX) -------- BALDO GRANT ([id number]) 1940 F Date Time Provider Department 02/09/25 [...] questions relating to this submission, please contact [facility] at [phone] Emely Ferro RN 02/11/2025 3:46 PM Signed [employer] approved 10/29/2024-02/10/2026 Patient notified Allergies As of Date: 02/09/2025 Noted Allergy Reaction ATORVASTATIN 05/29/2016 14 - Other: See Comments PRAVASTATIN 05/29/2016 14 - Other: See Comments Date Reviewed: 11/17/2024 Reviewed by: Mack Mills LPN - Fully Assessed Reason for Visit: Insurance Authorization [[id number]] AIMOVIG [Other] Prescriptions as of 02/11/2025 - [...] Status:Closed by ENMANUEL PHIPPS on 02/09/25 Normal [facility] DARBY SCREENING W TOMOon 02-03 DARBY SCREENING W MURTAZA * * *Final Report* * * DATE OF EXAM: Feb 03 2025 11:48AM WRW 0582 - DARBY SCREENING W MURTAZA / PROCEDURE REASON: multiple diagnoses * * * * Physician Interpretation * * * * RESULT: [place] [address] [place] [address] #[id number] - DARBY SCREENING W MURTAZA HISTORY: 84 [...] Lisa Granados M.D. Electronically signed on: 02/04/2025 [employer] Supervisor: JAZZ Transcribe Date/Time: Feb 03 2025 11:16A Dictated by: LISA GRANADOS MD This examination was interpreted and the report reviewed and electronically signed by: LISA GRANADOS MD on Feb 04 2025 1:13PM EST [id number] Normal [facility] CNOVon 11-17-2024 CNOV Office Visit (SLEWST ) -------- BALDO GRANT ([id number]) 1940 F Date Time Provider Department 11/17/24 11:30 AM [place] BROWN During your visit today, we recorded the following information about you: Pulse Blood pressure Weight 89/minute 126/78 73.3 kg [place] Brown APRN.CNP 11/17/2024 12:15 PM Signed [facility] Follow up/ Established [...] for snoring and witnessed apneas Indiana Brown APRN.HEAD CHARRER Here for follow up for RLS New [...] due to drowsy drivin 06/09/2024 09/16/2024 11/16/2024 [place] Sleepiness Scale Score 1 (No clinically significant [...] General appeara (more content not included)... Normal [facility] Bacteria Ur Culton 4 Bacteria identified Cx Nom (U) ORGANISM ID: 1 10,000 -<50,000 CFU/ml Normal urogenital bobo Normal [facility] Comment on above: Performed By: #### 6 30-4 ####[facility] LABCLIA [id number] [address] CNOVon 09-17-2024 CNOV Office Visit (OBGYWM ) -------- BALDO GRANT ([id number]) 1940 F Date Time Provider Department 09/17/24 [...] Date Reviewed: 09/17/2024 Reviewed by: Indiana Brown APRN.HEAD CHARRER - Fully Assessed Primary Visit Diagnosis:Urinary urgency [R39.15] Other Visit Diagnosis:Urinary frequency [R35.0] Order(s):URINE CULTURE [SQURCUL] Order #: [id number]. #:[id number] Prescriptions as of 09/17/2024 - gabapentin (NEURONTIN) [...] Status:Closed by LAYLA CHERRY on 09/17/24 Normal [facility] CNOV Office Visit (SLEWST ) -------- BALDO GRANT ([id number]) 1940 F Date Time Provider Department 09/17/24 11:00 AM [place] BROWN During your visit today, we recorded the following information about you: Pulse Respiration Blood pressure Weight 86/minute 16/minute 159/89 74.7 kg Indiana Brown APRN.CNP 09/17/2024 2:43 PM Signed [facility] Follow up/ Established [...] daughter is Conchita Vasquez who works in [employer]--and has told her she likely has RAMIRO. [...] due to drowsy drivin 03/13/2024 06/09/2024 09/16/2024 [place] Sleepiness Scale Score 3 (No clinically significant [...] alert and (more content not included)... Normal [facility]17[facility]2024 [facility] (OB[facility]WM[facility] -------- BALDO GRNAT ([id number]) 1940 F Date Time Provider Department 09/17/24 [...] LAYLA CHERRY Pharmacy Information Pharmacy Address Telephone [facility]/pharmacy #[id number] [place] [id number] Leigha Casarez RN Allergies As of Date: 09/17/2024 Noted Allergy Reaction ATORVASTATIN 05/29/2016 14 - Other: See Comments PRAVASTATIN 05/29/2016 14 - Other: See Comments Date Reviewed: 09/17/2024 Reviewed by: Indiana Brown APRN.HEAD CHARRER - Fully Assessed Reason for Visit: Results [...] Encounter Status:Closed by LAYLA CHERRY on 09/17/24 [facility] Telephone (SARAH) -------- BALDO GRANT ([id number]) 1940 F Date Time Provider Department 09/17/24 [place] BR[place] During your visit today, we recorded the following information about you: Indiana Brown APRN.BRITTNEY 09/17/2024 4:30 PM Signed Is there any update on her [employer]ra appeal? Thanks, Indiana Brown APRN.Analilia Stanton OCCA 09/18/2024 1:38 PM Signed Confidential email sent to [employer] medical customer service representative to check on status of appeal. Analilia Escobarella SALVADORDarren Brynn MurilloianSALVADORDarren 09/22/2024 7:24 AM Signed Email response has not been received as of this time. Analilia Shawnella MARIBEL LarryDevonMackNORMA 09/24/2024 2:49 PM Signed No email response received regarding Nidra device. Mack Mills LPN September 24, 2024 2:49 PM Brynn MurilloianSALVADORDarren 10/02/2024 11:34 AM Signed Additional confidential email sent to medical customer service representative to inquire further as office has [...] Status:Closed by MACK MILLS on 09/24/24 [facility] -------- BALDO GRANT ([id number]) 1940 F Date Time Provider Department 09/17/24 [place] AUG[place] OBGYWM During your visit today, we recorded the following information about you: Kourtney Gutierrez, RN 09/17/2024 8:22 AM Signed Patient calling c/o UTI symptoms. Having urinary urgency, frequency, lower back pain and dysuria. Stated that she gets these frequently in the past and asking for lab orders to be placed. She has an appointment at 11am at the [facility] with neuro and would like to stop [...] Status:Closed by LEIGHA CASAREZ on 09/17/24 Normal [facility] CBC W/Diff, Automatedon 10-2 Absolute Lymph 1.56 X10 3/uL Normal 0.83-4.51 [facility] Comment on above: Performed By: #### L 506.1000, L500.4050, L100.0100, L500.4100 #### [facility] [address] [place], [address] Absolute Neut 2.2 X10 3/uL Normal 2.0-7.7 [facility] Comment on above: Performed By: #### L 506.1000, L500.4050, L100.0100, L500.4100 #### [facility] [address] [place], [address] Basophils/100 WBC (Bld) 1.8 % High 0-1 [facility] Comment on above: Performed By: #### L 506.1000, L500.4050, L100.0100, L500.4100 #### [facility] [address] [place], [address] Eosinophils/100 WBC (Bld) 2.0 % Normal 0-5 [facility] Comment on above: Performed By: #### L 506.1000, L500.4050, L100.0100, L500.4100 #### [facility] [address] [place], [address] Erythrocyte distribution width (RBC) [Ratio] 12.6 % Normal 11.6-14.6 [facility] Comment on above: Performed By: #### L 506.1000, L500.4050, L100.0100, L500.4100 #### [facility] [address] [place], [address] Hematocrit (Bld) [Volume fraction] 37.6 % Normal 37-47 [facility] Comment on above: Performed By: #### L 506.1000, L500.4050, L100.0100, L500.4100 #### [facility] [address] [place], [address] Hemoglobin (Bld) [Mass/Vol] 12.6 g/dL Normal 12.0-15.0 [facility] Comment on above: Performed By: #### L 506.1000, L500.4050, L100.0100, L500.4100 #### [facility] [address] [place], [address] IG% 0.400 Normal 0.0-0.9 [facility] Comment on above: Result Comment: IG% - Immature Granulocytes (promyelocytes, myelocytes and metamyelocytes) > 1% indicates that a LEFT SHIFT is Present. Performed By: #### L 506.1000, L500.4050, L100.0100, L500.4100 #### [facility] [address] [place], [address] Lymphocytes/100 WBC (Bld) 34.6 % Normal 19-41 [facility] Comment on above: Performed By: #### L 506.1000, L500.4050, L100.0100, L500.4100 #### [facility] [address] [place], [address] MCH (RBC) [Entitic mass] 32.4 pg High 27.0-32.0 [facility] Comment on above: Performed By: #### L 506.1000, L500.4050, L100.0100, L500.4100 #### [facility] [address] [place], [address] MCHC (RBC) [Mass/Vol] 33.5 g/dL Normal 32-36 [facility] Comment on above: Performed By: #### L 506.1000, L500.4050, L100.0100, L500.4100 #### [facility] [address] [place], [address] MCV (RBC) [Entitic vol] 96.7 fL Normal 81-99 [facility] Comment on above: Performed By: #### L 506.1000, L500.4050, L100.0100, L500.4100 #### [facility] [address] [place], [address] Monocytes/100 WBC (Bld) 11.5 % High 0-10 [facility] Comment on above: Performed By: #### L 506.1000, L500.4050, L100.0100, L500.4100 #### [facility] [address] [place], [address] Neutrophils/100 WBC (Bld) 49.7 % Normal 47-70 [facility] Comment on above: Performed By: #### L 506.1000, L500.4050, L100.0100, L500.4100 #### [facility] [address] [place], [address] Nucleated RBC (Bld) [#/Vol] 0 10*3/uL Normal 0-5 [facility] Comment on above: Performed By: #### L 506.1000, L500.4050, L100.0100, L500.4100 #### [facility] [address] [place], [address] Platelet mean volume (Bld) [Entitic vol] 10.3 fL Normal 6.2-12.0 [facility] Comment on above: Performed By: #### L 506.1000, L500.4050, L100.0100, L500.4100 #### [facility] [address] [place], [address] Platelets (Bld) [#/Vol] 248 10*3/uL Normal 150-450 [facility] Comment on above: Performed By: #### L 506.1000, L500.4050, L100.0100, L500.4100 #### [facility] [address] [place], [address] RBC (Bld) [#/Vol] 3.89 10*6/uL Low 4.2-5.4 [facility] Comment on above: Performed By: #### L 506.1000, L500.4050, L100.0100, L500.4100 #### [facility] [address] [place], [address] RDW SD 44.9 fl High 35.1-43.9 [facility] Comment on above: Performed By: #### L 506.1000, L500.4050, L100.0100, L500.4100 #### [facility] [address] [place], [address] WBC (Bld) [#/Vol] 4.5 10*3/uL Normal 4.4-11.0 [facility] Comment on above: Performed By: #### L 506.1000, L500.4050, L100.0100, L500.4100 #### [facility] [address] [place], [address] Comprehensive Metabolic Prof [facility] 08-21-2024 Albumin [Mass/Vol] 3.6 g/dL Normal 3.2-5.0 [facility] Comment on above: Performed By: #### L 506.1000, L500.4050, L100.0100, L500.4100 #### [facility] [address] [place], [address] Albumin/Globulin [Mass ratio] 1.1 {ratio} Normal 0.9-2.4 [facility] Comment on above: Performed By: #### L 506.1000, L500.4050, L100.0100, L500.4100 #### [facility] [address] [place], [address] ALK P 67 U/L Normal 45-117 [facility] Comment on above: Performed By: #### L 506.1000, L500.4050, L100.0100, L500.4100 #### [facility] [address] [place], [address] ALT [Catalytic activity/Vol] 30 U/L Normal 13-56 [facility] Comment on above: Performed By: #### L 506.1000, L500.4050, L100.0100, L500.4100 #### [facility] [address] [place], [address] AST [Catalytic activity/Vol] 15 U/L Normal 15-37 [facility] Comment on above: Performed By: #### L 506.1000, L500.4050, L100.0100, L500.4100 #### [facility] [address] [place], [address] Bilirubin [Mass/Vol] 0.30 mg/dL Normal 0.20-1.00 [facility] Comment on above: Result Comment: For patients on eltrombopag therapy, use of Dimension [place] TBIL is not recommended. Performed By: #### L 506.1000, L500.4050, L100.0100, L500.4100 #### [facility] [address] [place], [address] BUN/CRE 22.8 RATIO High 10-20 [facility] Comment on above: Performed By: #### L 506.1000, L500.4050, L100.0100, L500.4100 #### [facility] [address] [place], [address] CA,Total 9.4 mg/dL Normal 8.5-10.1 [facility] Comment on above: Performed By: #### L 506.1000, L500.4050, L100.0100, L500.4100 #### [facility] [address] [place], [address] Chloride [Moles/Vol] 109 mmol/L High 98-107 [facility] Comment on above: Performed By: #### L 506.1000, L500.4050, L100.0100, L500.4100 #### [facility] [address] [place], [address] CO2 [Moles/Vol] 27.0 mmol/L Normal 21.0-32.0 [facility] Comment on above: Performed By: #### L 506.1000, L500.4050, L100.0100, L500.4100 #### [facility] [address] [place], [address] Creatinine [Mass/Vol] 0.79 mg/dL Normal 0.55-1.02 [facility] Comment on above: Result Comment: The validity of the calculated GFR GFRAA in patients over 70 years has not been determined. Clinical correlation is essential. Performed By: #### L 506.1000, L500.4050, L100.0100, L500.4100 #### [facility] [address] [place], [address] EST GFR - AA 90 mL/min Normal >60 [facility] Comment on above: Result Comment: Afri can Brune[place] GFR Calc Performed By: #### L 506.1000, L500.4050, L100.0100, L500.4100 #### [facility] [address] [place], [address] GAP 5 Normal 5-15 [facility] Comment on above: Performed By: #### L 506.1000, L500.4050, L100.0100, L500.4100 #### [facility] [address] [place], [address] GFR/1.73 sq M.predicted among non-blacks MDRD (S/P/Bld) [Vol rate/Area] 74 mL/min/{1.73_m2} Normal >60 [facility] Comment on above: Result Comment: Non- GFR Calc Performed By: #### L 506.1000, L500.4050, L100.0100, L500.4100 #### [facility] [address] [place], [address] Globulin (S) [Mass/Vol] 3.4 g/dL Normal 2.2-4.2 [facility] Comment on above: Performed By: #### L 506.1000, L500.4050, L100.0100, L500.4100 #### [facility] [address] [place], [address] Glucose [Mass/Vol] 95 mg/dL Normal 74-106 [facility] Comment on above: Performed By: #### L 506.1000, L500.4050, L100.0100, L500.4100 #### [facility] [address] [place], [address] Potassium [Moles/Vol] 4.7 mmol/L Normal 3.5-5.1 [facility] Comment on above: Performed By: #### L 506.1000, L500.4050, L100.0100, L500.4100 #### [facility] [address] [place], [address] Sodium [Moles/Vol] 140 mmol/L Normal 136-145 [facility] Comment on above: Performed By: #### L 506.1000, L500.4050, L100.0100, L500.4100 #### [facility] [address] [place], [address] T PROT 7.0 g/dL Normal 6.4-8.2 [facility] Comment on above: Performed By: #### L 506.1000, L500.4050, L100.0100, L500.4100 #### [facility] [address] [place], [address] Urea nitrogen [Mass/Vol] 18 mg/dL Normal 7-18 [facility] Comment on above: Performed By: #### L 506.1000, L500.4050, L100.0100, L500.4100 #### [facility] [address] [place], [address] Lipid Profileon 08-21-2024 Cholesterol [Mass/Vol] 276 mg/dL High 200 [facility] Comment on above: Result Comment: <200 mg/dL Desirable 200-240 mg/dL Borderline >240 mg/dL High Risk Performed By: #### L 506.1000, L500.4050, L100.0100, L500.4100 #### [facility] [address] [place], [address] Cholesterol in HDL [Mass/Vol] 54 mg/dL Normal [facility] Comment on above: Result Comment: The drugs N-Acetylcysteine and Metamizole may falsely depress this assay. Reference Range HDL <40 mg/dL Low HDL Cholesterol HDL >or= 60 mg/dL High HDL Cholesterol Performed By: #### L 506.1000, L500.4050, L100.0100, L500.4100 #### [facility] [address] [place], [address] Cholesterol in LDL [Mass/Vol] 182 mg/dL High 0-130 [facility] Comment on above: Performed By: #### L 506.1000, L500.4050, L100.0100, L500.4100 #### [facility] [address] [place], [address] Cholesterol in VLDL [Mass/Vol] 40 mg/dL Normal 5-40 [facility] Comment on above: Performed By: #### L 506.1000, L500.4050, L100.0100, L500.4100 #### [facility] [address] [place], [address] Triglyceride [Mass/Vol] 200 mg/dL High [facility] Comment on above: Result Comment: The drugs N-Acetylcysteine and Metamizole may falsely depress this assay. Serum Triglycerides Reference Interval Normal <150 mg/dL Borderline high 150 - 199 mg/dL High 200 - 499 mg/dL Very High > or = 500 mg/dL Performed By: #### L 506.1000, L500.4050, L100.0100, L500.4100 #### [facility] [address] [place], [address] Vitamin D,25 Hydroxyon 08-21 Vitamin D 25-OH 23.0 ng/mL Normal [facility] Comment on above: Result Comment: Ramandeep min D 25(OH) Status Range Deficiency <20 ng/mL (50nmol/L) Insufficiency 20 - 30 ng/mL (50 - 75 nmol/L) Sufficiency 30 - 100 ng/mL (75 - 250 nmol/L) Toxicity >100 ng/mL (>250 nmol/L) Performed By: #### L 506.1000, L500.4050, L100.0100, L500.4100 #### [facility] [address] [place], [id number] CNOVon 07-22-2024 CNOV Office Visit (OBGYWM ) -------- BALDO GRANT ([id number]) 1940 F Date Time Provider Department 07/22/24 8:40 AM [place] AUGUSTE OBGYWM During your visit today, we recorded the following information about you: Blood pressure Weight Height 116/70 74.4 kg 1.556 m Indiana Auguste MD 07/22/2024 9:08 AM Signed José Miguel is a 84 year old who presents for an annual gynecologic exam without clinical trials specialist c/o.. 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 As applicable, any other physician, advance practice provider, medical student, or other health professional student that will be observing or involved in the sensitive examination for educational or training purposes was discussed with the Patient or Authorized Admin Asst. The Patient or Authorized Admin Asst has agreed to proceed with the sensitive [...] external genitalia normal, normal Bartholin's glands, urethra, Montz's glands, no vulvar lesions, physiologic discharge present, [...] for screening mammogram for breast cancer [Z12.31] Order(s):[facility] SCREENING W MURTAZA [[id number]] Order #: [id number] FUTURE Prescriptions as of 07/22/2024 - biotin [...] THERAPEUTIC MULTIVIT (more content not included)... Normal [facility] FERRITINon 03-17-2024 Ferritin [Mass/Vol] 128.0 ng/mL 14.7 - 205.1 ng/mL [facility] Ferritin [Mass/Vol]on 2023 Interpretation and review of laboratory results Normal [facility] Iron and Iron binding capaci ty panelon 03-17-2024 Interpretation and review of laboratory results Normal [facility] Iron [Mass/Vol] 135 ug/dL 41 - 186 ug/dL [facility] Iron binding capacity [Mass/Vol] 253 ug/dL 232 - 386 ug/dL [facility] Iron/TIBC [Molar ratio] 53.4 % 15.0 - 57.0 % [facility] Absolute lymphocyte countOrd ered By: Rupali Cline on 08-15-2023 Lymphocytes Auto (Unsp spec) [#/Vol] 1.68 10*3/uL 0.83-4.51 [facility] Basophil percentageOrdered B y: Rupali Cline on 08-15-2023 Basophils/100 WBC (Bld) 1.6 % 0-1 [facility] Bilirubin [Mass/Vol] 0.30 mg/dL 0.20-1.00 [facility] Comment on above: For patients on eltr ombopag therapy, use of Dimension [place] TBIL is not recommended. Chloride [Moles/Vol] 110 mmol/L 98-107 [facility] Cholesterol [Mass/Vol] 238 mg/dL <200 [facility] Comment on above: <200 mg/dL Desirable 200-240 mg/dL Borderline >240 mg/dL High Risk Eosinophils/100 WBC (Bld) 2.9 % 0-5 [facility] Glucose [Mass/Vol] 99 mg/dL 74-106 [facility] Neutrophils (Bld) [#/Vol] 2.1 10*3/uL 2.0-7.7 [facility] Neutrophils/100 WBC (Bld) 47.2 % 47-70 [facility] Potassium [Moles/Vol] 4.6 mmol/L 3.5-5.1 [facility] Protein [Mass/Vol] 7.3 g/dL 6.4-8.2 [facility] Sodium [Moles/Vol] 141 mmol/L 136-145 [facility] Triglyceride [Mass/Vol] 172 mg/dL <199 [facility] Comment on above: The drugs N-Acetylcy steine and Metamizole may falsely depress this assay.Serum Triglycerides Reference Interval Normal <150 mg/dL Borderline high 150 - 199 mg/dL High 200 - 499 mg/dL Very High > or = 500 mg/dL WBC (Bld) [#/Vol] 4.5 10*3/uL 4.4-11.0 [facility] Blood erythrocytes count (nu mber/volume)Ordered By: Rupali Cline on 08-15-2023 RBC (Bld) [#/Vol] 4.01 10*6/uL 4.2-5.4 [facility] Blood hemoglobin measurement (mass/volume)Ordered By: Rupali Cline on 08-15-2023 Hemoglobin (Bld) [Mass/Vol] 12.7 g/dL 12.0-15.0 [facility] Blood lymphocytes/100 leukoc ytesOrdered By: Rupali Cline on 08-15-2023 Lymphocytes/100 WBC (Bld) 37.6 % 19-41 [facility] Blood monocytes/100 leukocyt esOrdered By: Rupali Cline on 08-15-2023 Monocytes/100 WBC (Bld) 10.5 % 0-10 [facility] Blood platelet mean volumeOr dered By: Rupali Cline on 08-15-2023 Platelet mean volume (Bld) [Entitic vol] 10.5 fL 6.2-12.0 [facility] Determination of erythrocyte mean corpuscular volume (MCV)Ordered By: Rupali Cline on 08-15-2023 MCV (RBC) [Entitic vol] 97.5 fL 81-99 [facility] Hematocrit Auto (Bld) [Volum e fraction]Ordered By: Rupali Cline on 08-15-2023 Hematocrit (Bld) [Volume fraction] 39.1 % 37-47 [facility] - Chemistry and C hemistry - challengeOrdered By: Rupali Cline on 08-15-2023 ALP [Catalytic activity/Vol] 66 U/L 45-117 [facility] ALT [Catalytic activity/Vol] 29 U/L 13-56 [facility] CO2 [Moles/Vol] 26.0 mmol/L 21.0-32.0 [facility] Globulin (S) [Mass/Vol] 3.7 g/dL 2.2-4.2 [facility] Urea nitrogen/Creatinine [Mass ratio] 20.2 mg/mg 10-20 [facility] - Hematology and Cell countsOrdered By: Rupali Cline on 08-15-2023 Erythrocyte distribution width (RBC) [Entitic vol] 46.4 fL 35.1-43.9 [facility] Erythrocyte distribution width (RBC) [Ratio] 12.9 % 11.6-14.6 [facility] Immature granulocytes/100 WBC (Bld) 0.200 % 0.0-0.9 [facility] Comment on above: IG% - Immature Granu locytes (promyelocytes, myelocytes and metamyelocytes) > 1% indicates that a LEFT SHIFT is Present. MCH (RBC) [Entitic mass] 31.7 pg 27.0-32.0 [facility] Nucleated RBC/100 WBC (Bld) [Ratio] 0 % 0-5 [facility] MCHC Auto (RBC) [Mass/Vol]Or dered By: Rupali Cline on 08-15-2023 MCHC (RBC) [Mass/Vol] 32.5 g/dL 32-36 [facility] No Panel InformationOrdered By: Rupali Cline on 08-15-2023 Estimated GFR (MDRD) Amer 105 mL/min >60 [facility] Comment on above: GFR Calc Estimated GFR (MDRD) Non-Af Amer 87 mL/min >60 [facility] Comment on above: Non- GFR Calc Thyroid Stimulating Hormone (TSH) 1.19 uIU/mL 0.358-3.74 [facility] Vitamin D 25-Hydroxy 31.2 ng/mL [facility] Comment on above: Vitamin D 25(OH) Sta tus Range Deficiency <20 ng/mL (50nmol/L) Insufficiency 20 - 30 ng/mL (50 - 75 nmol/L) Sufficiency 30 - 100 ng/mL (75 - 250 nmol/L) Toxicity >100 ng/mL (>250 nmol/L) Platelets bldOrdered By: Malaika Cline on 08-15-2023 Platelets (Bld) [#/Vol] 242 10*3/uL 150-450 [facility] Serum or plasma albumin jairo urement (mass/volume)Ordered By: Rupali Cline on 08-15-2023 Albumin [Mass/Vol] 3.6 g/dL 3.2-5.0 [facility] Serum or plasma albumin/glob ulin mass ratioOrdered By: Rupali Cline on 08-15-2023 Albumin/Globulin [Mass ratio] 1.0 {ratio} 0.9-2.4 [facility] Serum or plasma calcium jairo urement (mass/volume)Ordered By: Rupali Cline on 08-15-2023 Calcium [Mass/Vol] 9.2 mg/dL 8.5-10.1 [facility] Serum or plasma cholesterol in HDL measurement (mass/volume)Ordered By: Rupali Cline on 08-15-2023 Cholesterol in HDL [Mass/Vol] 54 mg/dL >40 [facility] Comment on above: The drugs N-Acetylcy steine and Metamizole may falsely depress this assay. Reference Range HDL <40 mg/dL Low HDL Cholesterol HDL >or= 60 mg/dL High HDL Cholesterol Serum or plasma cholesterol in VLDL measurement (mass/volume)Ordered By: Rupali Cline on 08-15-2023 Cholesterol in VLDL [Mass/Vol] 34 mg/dL 5-40 [facility] Serum or plasma creatinine m easurement (mass/volume)Ordered By: Rupali Cline on 08-15-2023 Creatinine [Mass/Vol] 0.69 mg/dL 0.55-1.02 [facility] Comment on above: The validity of the calculated GFR & GFRAA in patients over 70 years has not been determined. Clinical correlation is essential. Serum or plasma low density lipoprotein (LDL) cholesterol measurement (mass/volume)Ordered By: Rupali Cline on 08-15-2023 Cholesterol in LDL [Mass/Vol] 150 mg/dL 0-130 [facility] Serum or plasma urea nitroge n measurement (mass/volume)Ordered By: Rupali Cline on 08-15-2023 Urea nitrogen [Mass/Vol] 14 mg/dL 7-18 [facility] Thin prep Papanicolaou smear with manual screeningOrdered By: Rupali Cline on 08-15-2023 Thin prep Papanicolaou smear with manual screening 21 U/L 15-37 [facility] Thin prep Papanicolaou smear with manual screening 5 5-15 [facility] XR FOOT GENERAL 3V AP/LAT/OB L RIGHTon 04-09-2023 [facility] DARBY SCREENING W TOMOon 01-15 [facility] UA DIP, URINE (POC)on 2021 BILIRUBIN UA (POCT) Negative Negative [facility] CLARITY UA (POCT) Cloudy [facility] COLOR UA (POCT) Yellow [facility] GLUCOSE UA (POCT) Negative Negative mg/dL [facility] HEMOGLOBIN/BLOOD UA (POCT) Large Abnormal Negative [facility] KETONE UA (POCT) Negative Negative mg/dL [facility] LEUKOCYTES UA (POCT) Moderate Abnormal Negative [facility] NITRITE UA (POCT) Positive Abnormal Negative [facility] PH UA (POCT) 5.5 4.5 - 8.0 [facility] Protein Ql (U) 100 mg/dL Abnormal Negative mg/dL [facility] SPECIFIC GRAVITY UA (POCT) >=1.030 1.005 - 1.030 [facility] UROBILINOGEN UA (POCT) 0.2 E.U./dL Jeane l E.U./dL [facility] Absolute lymphocyte counton 08-17-2022 Lymphocytes Auto (Unsp spec) [#/Vol] 1.91 10*3/uL 0.83-4.51 [facility] Work Phone: Basophil percentageon 2021 Basophils/100 WBC (Bld) 1.4 % 0-1 [facility] Work Phone: Bilirubin [Mass/Vol] 0.30 mg/dL 0.20-1.00 [facility] Work Phone: Comment on above: For patients on eltr ombopag therapy, use of Dimension [place] TBIL is not recommended. Chloride [Moles/Vol] 106 mmol/L 98-107 [facility] Work Phone: Cholesterol [Mass/Vol] 251 mg/dL <200 [facility] Work Phone: [phone] Comment on above: <200 mg/dL Desirable 200-240 mg/dL Borderline >240 mg/dL High Risk Eosinophils/100 WBC (Bld) 2.5 % 0-5 [facility] Work Phone: [phone] Glucose [Mass/Vol] 93 mg/dL 74-106 [facility] Work Phone: Neutrophils (Bld) [#/Vol] 1.9 10*3/uL 2.0-7.7 [facility] Work Phone: Neutrophils/100 WBC (Bld) 42.3 % 47-70 [facility] Work Phone: [phone] Potassium [Moles/Vol] 4.1 mmol/L 3.5-5.1 [facility] Work Phone: Protein [Mass/Vol] 7.2 g/dL 6.4-8.2 [facility] Work Phone: [phone] Sodium [Moles/Vol] 140 mmol/L 136-145 [facility] Work Phone: Triglyceride [Mass/Vol] 175 mg/dL <199 [facility] Work Phone: [phone] Comment on above: The drugs N-Acetylcy steine and Metamizole may falsely depress this assay.Serum Triglycerides Reference Interval Normal <150 mg/dL Borderline high 150 - 199 mg/dL High 200 - 499 mg/dL Very High > or = 500 mg/dL WBC (Bld) [#/Vol] 4.4 10*3/uL 4.4-11.0 [facility] Work Phone: Blood erythrocytes count (nu mber/volume)on 08-17-2022 RBC (Bld) [#/Vol] 4.01 10*6/uL 4.2-5.4 [facility] Work Phone: Blood hemoglobin measurement (mass/volume)on 08-17-2022 Hemoglobin (Bld) [Mass/Vol] 12.5 g/dL 12.0-15.0 [facility] Work Phone: Blood lymphocytes/100 leukoc yteson 08-17-2022 Lymphocytes/100 WBC (Bld) 43.0 % 19-41 [facility] Work Phone: Blood monocytes/100 leukocyt eson 08-17-2022 Monocytes/100 WBC (Bld) 10.6 % 0-10 [facility] Work Phone: Blood platelet mean volumeon 08-17-2022 Platelet mean volume (Bld) [Entitic vol] 10.3 fL 6.2-12.0 [facility] Work Phone: Determination of erythrocyte mean corpuscular volume (MCV)on 08-17-2022 MCV (RBC) [Entitic vol] 97.0 fL 81-99 [facility] Work Phone: Hematocrit Auto (Bld) [Volum e fraction]on 08-17-2022 Hematocrit (Bld) [Volume fraction] 38.9 % 37-47 [facility] Work Phone: Laboratory - Chemistry and C hemistry - challengeon 08-17-2022 ALP [Catalytic activity/Vol] 87 U/L 45-117 [facility] Work Phone: ALT [Catalytic activity/Vol] 29 U/L 13-56 [facility] Work Phone: CO2 [Moles/Vol] 28.0 mmol/L 21.0-32.0 [facility] Work Phone: Globulin (S) [Mass/Vol] 3.8 g/dL 2.2-4.2 [facility] Work Phone: Urea nitrogen/Creatinine [Mass ratio] 20.5 mg/mg 08-17 [facility] Work Phone: Laboratory - Hematology and Cell countson 08-17-2022 Erythrocyte distribution width (RBC) [Entitic vol] 47.0 fL 35.1-43.9 [facility] Work Phone: Erythrocyte distribution width (RBC) [Ratio] 13.1 % 11.6-14.6 [facility] Work Phone: Immature granulocytes/100 WBC (Bld) 0.200 % 0.0-0.9 [facility] Work Phone: Comment on above: IG% - Immature Granu locytes (promyelocytes, myelocytes and metamyelocytes) > 1% indicates that a LEFT SHIFT is Present. MCH (RBC) [Entitic mass] 31.2 pg 27.0-32.0 [facility] Work Phone: Nucleated RBC/100 WBC (Bld) [Ratio] 0 % 0-5 [facility] Work Phone: MCHC Auto (RBC) [Mass/Vol]on 08-17-2022 MCHC (RBC) [Mass/Vol] 32.1 g/dL 32-36 [facility] Work Phone: No Panel Informationon 08-17 Estimated GFR (MDRD) Amer 80 mL/min >60 [facility] Work Phone: Comment on above: GFR Calc Estimated GFR (MDRD) Non-Af Amer 66 mL/min >60 [facility] Work Phone: Comment on above: Non- GFR Calc Vitamin D 25-Hydroxy 32.4 ng/mL [facility] Work Phone: Comment on above: Vitamin D 25(OH) Sta tus Range Deficiency <20 ng/mL (50nmol/L) Insufficiency 20 - 30 ng/mL (50 - 75 nmol/L) Sufficiency 30 - 100 ng/mL (75 - 250 nmol/L) Toxicity >100 ng/mL (>250 nmol/L) Platelets bldon 08-17-2022 Platelets (Bld) [#/Vol] 269 10*3/uL 150-450 [facility] Work Phone: Serum or plasma albumin jairo urement (mass/volume)on 08-17-2022 Albumin [Mass/Vol] 3.4 g/dL 3.2-5.0 [facility] Work Phone: Serum or plasma albumin/glob ulin mass ratioon 08-17-2022 Albumin/Globulin [Mass ratio] 0.9 {ratio} 0.9-2.4 [facility] Work Phone: Serum or plasma calcium jairo urement (mass/volume)on 08-17-2022 Calcium [Mass/Vol] 9.5 mg/dL 8.5-10.1 [facility] Work Phone: Serum or plasma cholesterol in HDL measurement (mass/volume)on 08-17-2022 Cholesterol in HDL [Mass/Vol] 49 mg/dL >40 [facility] Work Phone: Comment on above: The drugs N-Acetylcy steine and Metamizole may falsely depress this assay. Reference Range HDL <40 mg/dL Low HDL Cholesterol HDL >or= 60 mg/dL High HDL Cholesterol Serum or plasma cholesterol in VLDL measurement (mass/volume)on 08-17-2022 Cholesterol in VLDL [Mass/Vol] 35 mg/dL 5-40 [facility] Work Phone: Serum or plasma creatinine m easurement (mass/volume)on 08-17-2022 Creatinine [Mass/Vol] 0.88 mg/dL 0.55-1.02 [facility] Work Phone: Comment on above: The validity of the calculated GFR & GFRAA in patients over 70 years has not been determined. Clinical correlation is essential. Serum or plasma low density lipoprotein (LDL) cholesterol measurement (mass/volume)on 08-17-2022 Cholesterol in LDL [Mass/Vol] 167 mg/dL 0-130 [facility] Work Phone: Serum or plasma urea nitroge n measurement (mass/volume)on 08-17-2022 Urea nitrogen [Mass/Vol] 18 mg/dL 7-18 [facility] Work Phone: Thin prep Papanicolaou smear with manual screeningon 08-17-2022 Thin prep Papanicolaou smear with manual screening 16 U/L 15-37 [facility] Work Phone: Thin prep Papanicolaou smear with manual screening 6 5-15 [facility] Work Phone: MRI BRAIN WO IVCONon [...] Dec 28 2021 4:38PM EST [id number] Normal [facility] Procedure Noteon [place] Procedure Note Normal [facility] ([place]) Final Surgical Pathology Rep yobani 11-07-2017 Final Surgical Pathology Report . Pathology ReportsAccession: Collected Date/Time: Received Date/Time: Pathologist:[id number] 11/05/2017 09:40 EST 11/06/2017 07:21 EST MD KAMILAH THAYER Final Surgical Pathology ReportDIAGNOSIS:RIGHT COLON, BIOPSY: SLIGHTLY POLYPOID FRAGMENTS OF COLONIC MUCOSA WITH NO SPECIFIC PATHOLOGIC CHANGES.COMMENT:AOH - D# [id number] INFORMATION:Procedure: COLONOSCOPY WITH BIOPSY OF POLYP RIGHT COLONPreoperative diagnosis: HISTORY HIGH GRADE DYSPLASIA POLYPPostoperative diagnosis: HISTORY HIGH GRADE DYSPLASIA POLYPSPECIMEN:A POLYP, COLORECT - BIOPSY POLYP RIGHT COLONGROSS DESCRIPTION:_Received in formalin labeled right colon polyp biopsy are 3 leal glistening soft tissues averaging 0.2 cm. A S -1Dictated by LUIS JAIN ([facility])MICROSCOPIC DESCRIPTION:Slides reviewed.Electronically Signed byPathology Report verified by [facility]ronically signed by KAMILAH Chapa out Date: 11/07/2017 16:51Performing Lab: [facility], [address] [place] [address] Normal [facility] ([place]) Comment on above: Performed By: #### S PFR ####[facility] [place] [id number] Procedure Recordon 11-05-2017 [facility] Procedure Record Normal [facility] ([place]) Depart Summaryon 11-05-2017 Depart Summary Normal [facility] ([place]) History and Physicalon 11-05 History and Physical Normal [facility] ([place]) Outpatient Patient Summaryon 11-05-2017 Outpatient Patient Summary Normal [facility] ([place]) Office Visiton 05-17-2017 Dietary management education, guidance, and counseling (procedure) yes Invalid Interpretation Code [facility] Work Phone: Documentation of current medications (procedure) Done Invalid Interpretation Code [facility] Work Phone: Tobacco smoking status NHIS Never Invalid Interpretation Code [facility] Work Phone: Tobacco use CPHS Never smoker Invalid Interpretation Code [facility] Work Phone: Office Visiton 12-28-2016 Dietary management education, guidance, and counseling (procedure) yes Invalid Interpretation Code [facility] Work Phone: Documentation of current medications (procedure) Done Invalid Interpretation Code [facility] Work Phone: Tobacco smoking status NHIS Never Invalid Interpretation Code [facility] Work Phone: [phone] Tobacco use CPHS Never smoker Invalid Interpretation Code [facility] Work Phone: [phone] Lab Report: CBC W/Diff, Auto matedon 04-28-2016 Basophils/100 leukocytes 1.5 % High 0-1 [facility] Work Phone: 1) 0 Eosinophils/100 leukocytes 2.9 % Invalid Interpretation Code 0-5 [facility] Work Phone: [phone] 0 Erythrocytes (RBC) 3.79 10*6/uL Low 4.2-5.4 [facility] Work Phone: 1) 0 Hematocrit (HCT) 36.7 % Low 37-47 [facility] Work Phone: 1) 0 Hemoglobin (HGB) 12.1 g/dL Invalid Interpretation Code 12.0-15.0 [facility] Work Phone: 1) 0 immature granulocytes, percentage of total cells, blood 0.000 % Invalid Interpretation Code 0.0-0.9 [facility] Work Phone: [phone]) 0 Lymphocytes 1.17 X10 3/UL Invalid Interpretation Code 0.83-4.51 [facility] Work Phone: ) 0 Lymphocytes/100 leukocytes 34.0 % Invalid Interpretation Code 19-41 [facility] Work Phone: [phone] 0 MCH 31.9 pg Invalid Interpretation Code 27.0-32.0 [facility] Work Phone: [phone] 0 MCHC 33.0 G/GL Invalid Interpretation Code 32-36 [facility] Work Phone: [phone]) 0 MCV 96.8 fL Invalid Interpretation Code 81-99 [facility] Work Phone: 1) 0 Monocytes/100 leukocytes 13.4 % High 0-10 [facility] Work Phone: 1) 0 neutrophil count, blood 1.7 X10 3/UL Low 2.0-7.7 [facility] Work Phone: [phone] Neutrophils/100 leukocytes 48.2 % Invalid Interpretation Code 47-70 [facility] Work Phone: [phone] Platelets 231 10*3/mm3 Invalid Interpretation Code 150-450 [facility] Work Phone: [phone] PMV by Peng 10.5 fL Invalid Interpretation Code 6.2-12.0 [facility] Work Phone: [phone] RDW-CA 12.6 % Invalid Interpretation Code 11.6-14.6 [facility] Work Phone: [phone] red blood cell distribution width, size density 42.7 fL Invalid Interpretation Code 35.1-43.9 [facility] Work Phone: [phone] WBC (Leukocytes) 3.4 10*3/uL Low 4.4-11.0 [facility] Work Phone: [phone] Lab Report: [facility] 04-28-2016 Alanine aminotransferase (ALT) 39 U/L Invalid Interpretation Code 12-78 [facility] Work Phone: [phone] Albumin 3.8 g/dL Invalid Interpretation Code 3.4-5.0 [facility] Work Phone: [phone] Albumin/Globulin Ratio 1.2 {ratio} Invalid Interpretation Code 0.9-2.4 [facility] Work Phone: [phone] Alkaline phosphatase (ALP) 60 U/L Invalid Interpretation Code 50-136 [facility] Work Phone: [phone] Anion gap 7 mmol/L Invalid Interpretation Code 5-15 [facility] Work Phone: [phone] Aspartate aminotransferase (AST) 28 U/L Invalid Interpretation Code 15-37 [facility] Work Phone: [phone] Bilirubin (total) 0.30 mg/dL Invalid Interpretation Code 0.20-1.00 [facility] Work Phone: [phone] BUN/Creatinine Ratio 22.9 RATIO High 10-20 [facility] Work Phone: [phone] Calcium 9.3 mg/dL Invalid Interpretation Code 8.5-10.1 [facility] Work Phone: [phone] Chloride 106 mmol/L Invalid Interpretation Code 98-107 [facility] Work Phone: [phone] CO2 29.0 mmol/L Invalid Interpretation Code 21.0-32.0 [facility] Work Phone: [phone] Creatinine 0.83 mg/dL Invalid Interpretation Code 0.55-1.20 [facility] Work Phone: [phone] eGFR (non-black) 72 mL/min/{1.73_m2} Invalid Interpretation Code >60 [facility] Work Phone: [phone] eGFR (non-black) 87 mL/min/{1.73_m2} Invalid Interpretation Code >60 [facility] Work Phone: [phone] Globulin 3.1 g/dL Invalid Interpretation Code 2.3-3.5 [facility] Work Phone: [phone] Glucose 87 mg/dL Invalid Interpretation Code 70-110 [facility] Work Phone: [phone] Potassium 4.2 mmol/L Invalid Interpretation Code 3.5-5.1 [facility] Work Phone: [phone] Protein 6.9 g/dL Invalid Interpretation Code 6.4-8.2 [facility] Work Phone: [phone] Sodium 142 mmol/L Invalid Interpretation Code 136-145 [facility] Work Phone: [phone] Urea nitrogen 19 mg/dL High 7-18 [facility] Work Phone: [phone] Lab Report: Lipid Profileon 04-28-2016 Cholesterol 216 mg/dL High 200 [facility] Work Phone: [phone] HDL Cholesterol 50 mg/dL Invalid Interpretation Code [facility] Work Phone: [phone] LDL Cholesterol 123 mg/dL Invalid Interpretation Code 0-130 [facility] Work Phone: [phone] Triglyceride 213 mg/dL High [facility] Work Phone: [phone] very low density lipoproteins 43 mg/dL High 5-40 [facility] Work Phone: [phone] Lab Report: Microalb:Creat R atio,Random URon 04-28-2016 ACR (microalbumin/creatini ne) ratio 12.6 MG/G CRE Invalid Interpretation Code <30 mg/g CRE [facility] Work Phone: [phone] Urine, creatinine 104.00 mg/dL Invalid Interpretation Code NO RANGE EST. [facility] Work Phone: [phone] Urine, microalbumin 1.31 mg/dL Invalid Interpretation Code Units converted. See lab report for original value. [facility] Work Phone: [phone] Lab Report: Vitamin D,25 Hyd roxyon 04-28-2016 vitamin D 25-hydroxy, serum 30.5 ng/mL Invalid Interpretation Code [facility] Work Phone: [phone] Vital Signs Date Time Vital Sign Value Performing Clinician Facility 07-05-2025 14:35-0400 Body temperature 97.8 [degF] Dr. Rupali Cline DO Work Phone: [facility] 07-05-2025 14:35-0400 Diastolic blood pressure 66 mm[Hg] Dr. Rupali Cline DO Work Phone: [facility] 07-05-2025 14:35-0400 Heart rate 64 /min Dr. Rupali Cline DO Work Phone: [facility] 07-05-2025 14:35-0400 Respiratory rate 14 /min Dr. Rupali Cline DO Work Phone: [facility] 07-05-2025 14:35-0400 SaO2% (BldA) [Mass fraction] 98 % Dr. Rupali Cline DO Work Phone: [facility] 07-05-2025 14:35-0400 Systolic blood pressure 141 mm[Hg] Dr. Rupali Cline DO Work Phone: [facility] 07-05-2025 09:55-0400 Body mass index (BMI) [Ratio] 28.2 kg/m2 Dr. Rupali Cline DO Work Phone: [facility] 07-05-2025 09:55-0400 Body weight [address] Rupali Cline DO Work Phone: [facility] 07-05-2025 09:45-0400 Body height 157.[address] Rupali Cline DO Work Phone: [facility] 11-17-2024 11:16-0500 Body mass index (BMI) [Ratio] 30.29 kg/m2 [place] Stephanie [employer] Work Phone: [facility] 11-17-2024 11:16-0500 Body weight 73.3 kg [place] Stephanie [employer] Work Phone: [facility] 11-17-2024 11:16-0500 Diastolic blood pressure 78 mm[Hg] [place] Stephanie [employer] Work Phone: [facility] 11-17-2024 11:16-0500 Heart rate 89 /min [place] Stephanie [employer] Work Phone: [facility] 11-17-2024 11:16-0500 SaO2% (BldA) [Mass fraction] 97 % [place] Stephanie [employer] Work Phone: [facility] 11-17-2024 11:16-0500 Systolic blood pressure 126 mm[Hg] [place] Stephanie [employer] Work Phone: [facility] 09-17-2024 11:12-0500 Body mass index (BMI) [Ratio] 30.85 kg/m2 [place] Stephanie [employer] Work Phone: [facility] 09-17-2024 11:12-0500 Body weight 74.66 kg [place] Stephanie [employer] Work Phone: [facility] 09-17-2024 11:12-0500 Diastolic blood pressure 89 mm[Hg] [place] Stephanie [employer] Work Phone: [facility] 09-17-2024 11:12-0500 Heart rate 86 /min [place] Stephanie [employer] Work Phone: [facility] 09-17-2024 11:12-0500 Respiratory rate 16 /min [place] Stephanie [employer] Work Phone: [facility] 09-17-2024 11:12-0500 Systolic blood pressure 159 mm[Hg] [place] Stephanie [employer] Work Phone: [facility] 07-22-2024 08:46-0400 Body height 155.6 cm [place] Auguste MD Work Phone: [facility] 07-22-2024 08:46-0400 Body mass index (BMI) [Ratio] 30.74 kg/m2 [place] Auguste MD Work Phone: [facility] 07-22-2024 08:46-0400 Body weight 74.39 kg [place] Auguste MD Work Phone: [facility] 07-22-2024 08:46-0400 Diastolic blood pressure 70 mm[Hg] [place] Auguste MD Work Phone: [facility] 07-22-2024 08:46-0400 Systolic blood pressure 116 mm[Hg] [place] Auguste MD Work Phone: [facility] 06-16-2024 09:51-0400 Body mass index (BMI) [Ratio] 31.32 kg/m2 [place] Stephanie [employer] Work Phone: [facility] 06-16-2024 09:51-0400 Body weight 75.2 kg [place] Stephanie [employer] Work Phone: [facility] 06-16-2024 09:51-0400 Diastolic blood pressure 78 mm[Hg] [place] Stephanie [employer] Work Phone: [facility] 06-16-2024 09:51-0400 Heart rate 80 /min [place] Stephanie [employer] Work Phone: [facility] 06-16-2024 09:51-0400 SaO2% (BldA) [Mass fraction] 98 % [place] Stephanie [employer] OFF[employer] Work Phone: [facility] 06-16-2024 09:51-0400 Systolic blood pressure 119 mm[Hg] [place] Stephanie [employer] OFF[employer] Work Phone: [facility] 03-17-2024 09:17-0400 Body mass index (BMI) [Ratio] 31.1 kg/m2 [place] Stephanie [employer] OFF[employer] Work Phone: [facility] 03-17-2024 09:17-0400 Body weight 74.66 kg [place] Stephanie [employer] OFF[employer] Work Phone: [facility] 03-17-2024 09:17-0400 Diastolic blood pressure 81 mm[Hg] [place] Stephanie [employer] OFF[employer] Work Phone: [facility] 03-17-2024 09:17-0400 Heart rate 73 /min [place] Stephanie [employer] Work Phone: [facility] 03-17-2024 09:17-0400 Respiratory rate 18 /min [place] Stephanie [employer] OFF[employer] Work Phone: [facility] 03-17-2024 09:17-0400 SaO2% (BldA) [Mass fraction] 95 % [place] Stephanie [employer] Work Phone: [facility] 03-17-2024 09:17-0400 Systolic blood pressure 130 mm[Hg] [place] Brown [employer] OFF[employer]ER.[employer] Work Phone: [facility] 03-08-2023 09:35-0400 Body weight 71.58 kg Mirna Dahlhausen [employer] Work Phone: [facility] 03-08-2023 09:35-0400 Diastolic blood pressure 70 mm[Hg] Mirna Dahlhausen [employer] Work Phone: [facility] 03-08-2023 09:35-0400 Heart rate 64 /min Mirna Dahlhausen [employer] Work Phone: [facility] 03-08-2023 09:35-0400 Respiratory rate 16 /min Mirna Dahlhausen [employer] Work Phone: [facility] 03-08-2023 09:35-0400 SaO2% (BldA) [Mass fraction] 95 % Mirna Dahlhausen [employer] OFF[employer] Work Phone: [facility] 03-08-2023 09:35-0400 Systolic blood pressure 118 mm[Hg] Mirna Dahlhausen [employer] OFF[employer] Work Phone: [facility] 10-04-2022 13:31-0500 Body height 154.9 cm [place] Auguste MD Work Phone: [facility] 10-04-2022 13:31-0500 Body weight 72.58 kg [place] Auguste MD Work Phone: [facility] 10-04-2022 13:31-0500 Diastolic blood pressure 68 mm[Hg] [place] Auguste MD Work Phone: [facility] 10-04-2022 13:31-0500 Systolic blood pressure 114 mm[Hg] [place] Auguste MD Work Phone: [facility] 08-24-2022 12:58-0400 Body temperature 98.29 [degF] Pavan Book MD Work Phone: [facility] 08-24-2022 12:58-0400 Diastolic blood pressure 79 mm[Hg] Pavan James MD Work Phone: [facility] 08-24-2022 12:58-0400 Heart rate 86 /min Pavan James MD Work Phone: [facility] 08-24-2022 12:58-0400 Respiratory rate 17 /min Pavan James MD Work Phone: [facility] 08-24-2022 12:58-0400 Systolic blood pressure 138 mm[Hg] Pavan James MD Work Phone: [facility] 06-16-2022 15:05-0400 Body height 154.9 cm Mirnabenji Lovehausmitch [employer] OFF[employer] Work Phone: [facility] 06-16-2022 15:05-0400 Body weight 74.39 kg Mirnabenji Lovehausen [employer] OFF[employer]ER.[employer] Work Phone: [facility] 06-16-2022 15:05-0400 Diastolic blood pressure 73 mm[Hg] Mirna Dahlhausen [employer] OFF[employer]ER.[employer] Work Phone: [facility] 06-16-2022 15:05-0400 Heart rate 77 /min Mirna Dabunnyhausen [employer] OFF[employer]ER.[employer] Work Phone: [facility] 06-16-2022 15:05-0400 Respiratory rate 16 /min Mirna Dabunnyhausen [employer] OFF[employer]ER[employer] Work Phone: [facility] [facility] 06-16-2022 15:05-0400 SaO2% (BldA) [Mass fraction] 98 % Mirna Dahlhausen POLICE LIAISON OFFICER.HEAD CHARRER Work Phone: [facility] 06-16-2022 15:05-0400 Systolic blood pressure 113 mm[Hg] Mirna Dahlhausen POLICE LIAISON OFFICER.HEAD CHARRER Work Phone: [facility] 05-18-2022 16:03-0400 Body height 154.9 cm Babatunde Penaloza MD Work Phone: [facility] 05-18-2022 16:03-0400 Body weight 74.8 kg Babatunde Penaloza MD Work Phone: [facility] 05-18-2022 16:03-0400 Diastolic blood pressure 75 mm[Hg] Babatunde Penaloza MD Work Phone: [facility] 05-18-2022 16:03-0400 Heart rate 79 /min Babatunde Penaloza MD Work Phone: [facility] 05-18-2022 16:03-0400 Systolic blood pressure 139 mm[Hg] Babatunde Penaloza MD Work Phone: [facility] 08-17-2021 10:47-0400 Body temperature 98.49 [degF] Pavan James MD Work Phone: [facility] 08-17-2021 10:47-0400 Diastolic blood pressure 81 mm[Hg] Pavan James MD Work Phone: [facility] 08-17-2021 10:47-0400 Heart rate 90 /min Pavan James MD Work Phone: [facility] 08-17-2021 10:47-0400 Systolic blood pressure 152 mm[Hg] Pavan James MD Work Phone: [facility] 03-07-2016 13:16-0400 BMI (Body Mass Index) 28.71 kg/m2 [facility] Work Phone: 03-07-2016 13:16-0400 Body Temperature 98.2 [degF] [facility] Work Phone: 03-07-2016 13:16-0400 BP Diastolic 84 mm[Hg] [facility] Work Phone: 03-07-2016 13:16-0400 BP Systolic 130 mm[Hg] [facility] Work Phone: 03-07-2016 13:16-0400 BSA (Body Surface Area) 1.73 m2 [facility] Work Phone: 03-07-2016 13:16-0400 Pulse (Heart Rate) 85 /min [facility] Work Phone: 03-07-2016 13:16-0400 Respiratory Rate 14 /min [facility] ter [facility] Work Phone: 03-07-2016 13:16-0400 Weight 71.22 kg [facility] Work Phone: 01-07-2015 10:11-0400 Height 157.48 cm [facility] Work Phone: Encounters Encounter Date Encounter Type Care Provider Facility Start: 07-10-2025 End: 07-10-2025 ambulatory RUPALI CLINE Facility:[facility] Start: 07-06-2025 End: 07-06-2025 Telemedicine consultation with [...] 06-12-2025 End: 06-17-2025 Telephone encounter Indiana Brown APRN.HEAD CHARRER Work Phone: Neurology Comment on above: Medication Problem Start: 05-18-2025 End: 05-18-2025 Telephone encounter Indiana Brown APRN.HEAD CHARRER Work Phone: Neurology Start: 02-09-2025 End: 02-09-2025 Telephone encounter Enmanuel Phipps RN Work Phone: [facility] Home Delivery Comment on above: Insurance Authorizat ion; [employer] Start: 02-04-2025 End: 04-06-2025 Refill Babatunde Penaloza MD Work Phone: Neurology Comment on above: Refill Request Start: 02-03-2025 End: 02-03-2025 ambulatory IND[place] AUGUSTE Facility:[facility] Start: 02-03-2025 Encounter for gynecological examination (general) (routine) without abnormal findings [facility] Start: 02-03-2025 End: 02-03-2025 Patient encounter status Screen Wstr [facility] Start: 02-03-2025 End: 02-03-2025 Subsequent hospital visit by physician Screen Mammo [facility] Mammogram Comment on above: Encounter for routin e gynecologic examination in Medicare patient [Z01.419] Start: 01-17-2025 End: 01-19-2025 Refill Babatunde Penaloza MD Work Phone: Neurology Comment on above: Refill Request Start: 11-17-2024 End: 11-17-2024 Patient encounter procedure Indiana Brown APRN.HEAD CHARRER Work Phone: Neurology Comment on above: RLS (restless legs s yndrome) (Primary Dx); Insomnia, unspecified type Start: 11-17-2024 End: 11-17-2024 ambulatory [facility] Facility:[facility] Start: 09-17-2024 End: 09-24-2024 Telephone encounter Layla Cherry APRN.CNM Work Phone: OB/Gynecology Comment on above: Results UTI Start: 09-17-2024 End: 09-17-2024 ambulatory [place] Darren [facility] Facility:[facility] Start: 09-17-2024 End: 09-17-2024 Patient encounter procedure Layla Cherry APRN.CNM Work Phone: OB/Gynecology Comment on above: Urinary urgency (Lucía baldo Dx); Urinary frequency RLS (restless legs s yndrome) (Primary Dx) Start: 08-21-2024 End: 08-21-2024 ambulatory Rupali [facility] Start: 07-22-2024 End: 07-22-2024 ambulatory [place] AUGUSTE Facility:[facility] Start: 07-22-2024 End: 07-22-2024 Patient encounter procedure Indiana Auguste MD Work Phone: OB/Gynecology Comment on above: Encounter for routin e gynecologic examination in Medicare patient (Primary Dx); Encounter for screening mammogram for breast cancer Start: 07-22-2024 End: 07-22-2024 Patient encounter status Indiana Auguste MD Work Phone: [facility] Start: 06-16-2024 End: 06-16-2024 Patient encounter procedure Indiana Brown APRN.HEAD CHARRER Work Phone: Neurology Comment on above: RLS (restless legs s yndrome) (Primary Dx) Start: 06-09-2024 Refill Babatunde Penaloza MD Work Phone: Neurology Comment on above: Refill Request Start: 03-17-2024 Telephone encounter Indiana adrian APRN.HEAD CHARRER Work Phone: Neurology Start: 03-17-2024 End: 03-17-2024 Patient encounter procedure Indiana Brown APRN.HEAD CHARRER Work Phone: Neurology Comment on above: RLS (restless legs s yndrome) (Primary Dx) Start: 02-01-2024 Documentation procedure Mammog vince Coordinator [facility] Start: 02-01-2024 Letter encounter Mammography Coordinator [facility] Department Start: 01-31-2024 End: 01-31-2024 Subsequent hospital visit by physician Bone Density [facility] Work Phone: Radiology Comment on above: At risk for decrease d bone density [Z91.89] Encounter for screen ing mammogram for malignant neoplasm of breast [Z12.31] Start: 12-18-2023 Telephone encounter Neurology Provid er Neurology Comment on above: Patient Update Start: 12-11-2023 Refill Babatunde Penaloza MD Work Phone: Neurology Comment on above: Refill Request Start: 08-15-2023 End: 08-15-2023 ambulatory [facility] Work Phone: Start: 08-15-2023 End: 08-15-2023 Patient encounter procedure [facility] Joseph Gonsalves [facility] Start: 06-22-2023 Refill Mirna Dahlha usen POLICE LIAISON OFFICER.HEAD CHARRER Work Phone: Neurology Comment on above: Refill Request Start: 06-01-2023 Refill Mirna Dahlha usen POLICE LIAISON OFFICER.HEAD CHARRER Work Phone: Neurology Comment on above: Refill Request Start: 05-31-2023 Refill Michele Verma Work Phone: Neurology Comment on above: Refill Request Start: 04-13-2023 Refill Mirna Dahlha usen POLICE LIAISON OFFICER.HEAD CHARRER Work Phone: Neurology Comment on above: Med Change Request Start: 04-09-2023 End: 04-09-2023 Patient encounter procedure Alessandro Leslie Work Phone: Podiatry Comment on above: Porokeratosis (Prima ry Dx) Start: 04-09-2023 End: 04-09-2023 Subsequent hospital visit by physician Xr [facility] Work Phone: Radiology Comment on above: Pain in right foot [ M79.671] Start: 04-03-2023 Telephone encounter Enmanuel wilkes RN Work Phone: [facility] Home Delivery Comment on above: Insurance Authorizat ion ([employer] 140MG/ML auto-injectors/) Start: 03-08-2023 End: 03-08-2023 Patient encounter procedure Mirna Baum APRN.HEAD CHARRER Work Phone: Neurology Comment on above: RLS (restless legs s yndrome) (Primary Dx); Intractable episodic headache, unspecified headache type Start: 02-19-2023 Orders Only Alessandro scott Work Phone: Podiatry Comment on above: Pain in right foot ( Primary Dx) Refill Request Start: 01-24-2023 Refill Babatunde Penaloza MD Work Phone: Neurology Comment on above: Refill Request Start: 01-16-2023 Documentation procedure Mammog vince Coordinator [facility] Start: 01-16-2023 Letter encounter Mammography Coordinator [facility] Department Start: 01-15-2023 End: 01-15-2023 Patient encounter status Screen Wstr [facility] Start: 01-15-2023 End: 01-15-2023 Subsequent hospital visit by physician Screen Mammo [facility] Mammogram Comment on above: Encounter for gyneco logical examination (general) (routine) without abnormal findings [Z01.419] Start: 01-02-2023 Refill Mirna Dahlha usen POLICE LIAISON OFFICER.HEAD CHARRER Work Phone: Neurology Comment on above: Refill Request Start: 12-17-2022 Refill Mirna Dahlha usen POLICE LIAISON OFFICER.HEAD CHARRER Work Phone: Neurology Comment on above: Refill Request Start: 11-23-2022 End: 11-23-2022 ambulatory Babatunde Penaloza MD Work Phone: Neurology Comment on above: Migraine without aur a and without status migrainosus, not intractable (Primary Dx) Start: 11-23-2022 End: 11-23-2022 Telemedicine consultation with patient Babatunde Penaloza MD Work Phone: [facility] Start: 11-06-2022 Refill Mirna Dahlha usen POLICE LIAISON OFFICER.HEAD CHARRER Work Phone: Neurology Comment on above: Refill Request Start: 11-04-2022 Refill Mirna Dahlha usen POLICE LIAISON OFFICER.HEAD CHARRER Work Phone: Neurology Comment on above: Refill [...] Orders Only Pavan lee MD Work Phone: [facility] Start: 08-25-2022 End: 08-29-2022 ambulatory [facility] Start: 08-24-2022 End: 08-24-2022 Office outpatient visit 15 minutes Pavan James MD Work Phone: [facility] Comment on above: Cystocele, midline ( Primary Dx); Incomplete uterine prolapse Start: 08-21-2022 E-mail encounter fro m caregiver [facility] Provider PARI MASON Start: 08-21-2022 Patient encounter procedure [facility] Comment on above: October Appointment with Dr. Penaloza Start: 08-17-2022 End: 08-17-2022 ambulatory [facility] Work Phone: Start: 08-17-2022 End: 08-17-2022 Patient encounter procedure [facility] Start: 06-30-2022 Refill Mirna acosta APRN.HEAD CHARRER Work Phone: Neurology Comment on above: Refill Request Start: 06-30-2022 Refill Mirna acosta APRN.HEAD CHARRER Work Phone: Neurology Comment on above: Refill Request Start: 06-16-2022 End: 06-16-2022 Patient encounter procedure Mirna Baum POLICE LIAISON OFFICER.HEAD CHARRER Work Phone: Neurology Comment on above: RLS (restless legs s yndrome) (Primary Dx); Intractable episodic headache, unspecified headache type Start: 05-18-2022 End: 05-18-2022 Patient encounter procedure Babatunde Penaloza MD Work Phone: Neurology Comment on above: Migraine without aur a and without status migrainosus, not intractable (Primary Dx) Start: 03-30-2022 ambulatory Mirna Marieebunnyanette usen POLICE LIAISON OFFICER.HEAD CHARRER Work Phone: [facility] Start: 03-30-2022 Patient encounter procedure Mirna Baum POLICE LIAISON OFFICER.HEAD CHARRER Work Phone: Neurology Comment on above: Appointment Start: 02-04-2022 ambulatory Mirna Leonela usen POLICE LIAISON OFFICER.HEAD CHARRER Work Phone: Neurology Comment on above: Lyrica Start: 08-17-2021 End: 08-17-2021 ambulatory PAVAN JAMES [facility] Start: 08-17-2021 End: 08-17-2021 Office outpatient visit 15 minutes Pavan James MD Work Phone: [facility] Comment on above: Cystocele, midline Start: 11-05-2017 End: 11-05-2017 Ambulatory [facility] Facility:B Procedures Date Procedure Procedure [...] PM EST Office Visit Neurology [address] [place] [address] [place] [address] [place] [address] follow up on Migraines Neurology Comment on above: follow up on Migrain es Start: 07-06-2025 End: 10-05-2025 Ferritin [Mass/volume] in Serum or Plasma FERRITIN Lab Routine RLS (restless legs syndrome) Expected: 07/06/2025, Expires: 10/05/2025 [facility] Work Phone: Comment on above: Expected: 07/06/2025 , Expires: 10/05/2025 Start: 07-06-2025 End: 10-05-2025 Iron and Iron binding capacity panel - Serum or Plasma IRON AND TIBC Lab Routine RLS (restless legs syndrome) Expected: 07/06/2025, Expires: 10/05/2025 [facility] Comment on above: Expected: 07/06/2025 , Expires: 10/05/2025 Start: 07-06-2025 End: 07-06-2025 Patient encounter procedure 07/06/2025 11:30 AM EDT Office Visit Neurology [address] [place]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 Established [...] for snoring and witnessed apneas Indiana Brown APRN.HEAD CHARRER Here for follow up for RLS New [...] accidents due to drowsy drivin 06/09/2024 09/16/202411/1611/16/2024 [place] Sleepiness Scale Score 1 (No clinically significant [...] (restless legs syndrome) (lucía (more content not included)...[facility]11-27-2024 Telephone encounter Note* Telephone Encounter - Mack Mills LPN - 09/24/2024 2:48 PM EST No email response received regarding Nidra device. Mack Mills LPN September 24, 2024 2:49 PM [facility]11-27-2024 Miscellaneous Notes* Telephone Encounter - Mack Mills [...] EST Confidential email sent to Nidra medical customer service representative to check on status of appeal. MARIBEL Rosales * Telephone Encounter - Indiana Brown APRN.CNP - 09/17/2024 4:27 PM EST Is there any update on her Nidra appeal? Thanks, Indiana Brown APRN.HEAD CHARRER documented in this encounterBarberton Citizens Hospital11-25-2024 Telephone encounter Note * Telephone Encounter - Analilia Murillo OCCA - 09/22/2024 7:24 AM EST Email response has not been received as of this time. MARIBEL Rosales [facility]11-21-2024 Telephone encounter Note* Telephone Encounter - Analilia Murillo OCCA - 09/18/2024 1:31 PM EST Confidential email sent to Nidra medical customer service representative to check on status of appeal. MARIBEL Rosales [facility]11-20-2024 Telephone encounter Note* Telephone Encounter - Indiana Brown APRN.BRITTNEY - 09/17/2024 4:27 PM EST Is there any update on her Nidra appeal? Thanks, Indiana Brown APRN.HEAD CHARRER [facility]11-20-2024 Telephone encounter Note* Telephone Encounter - Leigha [...] LAYLA CHERRY Pharmacy Information Pharmacy Address Telephone [facility]/pharmacy #[id number] [address] [place] [address] Leigha Casarez RN [facility]11-20-2024 Miscellaneous Notes* Telephone Encounter - Leigha Casarez [...] LAYLA CHERRY Pharmacy Information Pharmacy Address Telephone [facility]/pharmacy #[id number] [address] [place] [address] Leigha Casarez RN * Telephone [...] antibiotics. Layla Cherry APRN.CNM documented in this encounterBarberton Citizens Hospital11-20-2024 Telephone encounter Note * Telephone Encounter - Layla Cherry APRN.CNM - 09/17/2024 3:53 PM EST Yes, will send in Rx for Macrobid 100 mg PO BID x 5 days. Layla Cherry APRN.CNM [facility]11-20-2024 Telephone encounter Note* Telephone Encounter - Kourtney Gutierrez RN - 09/17/2024 2:21 PM EST Patient notified. She is questioning if she could be started on an antibiotic now instead of waiting then switching it if needed? She stated she is very miserable with her symptoms. Kourtney Gutierrez RN [facility]11-20-2024 Telephone encounter Note* Telephone Encounter - Leigha Casarez RN - 09/17/2024 1:35 PM EST Left message to call office. Leigha Casarez RN [facility]11-20-2024 Telephone encounter Note* Telephone Encounter - Leigha Casarez RN - 09/17/2024 1:35 PM EST ----- Message from Layla Cherry APRN.CNM sent at 09/17/2024 1:08 PM EST ----- Results reviewed. Please notify patient that urine was sent for culture and will notify if needs treated with antibiotics. Layla Cherry APRN.CNM [facility]11-20-2024 NoteHNO ID: [id number] Author: LAYLA CHERRY APRN.CNM Service: ? Author Type: Bankruptcy Paralegal Type: Progress Notes Filed: 09/17/2024 13:07 Note Text: Patient over 30 minutes late for appointment and provider out of office at hospital. Patient C/O frequency and urgency with urination. Requesting urine to be sent for testing. [facility] History of Present illness Narrative* Layla Cherry APRN.CNM - 09/17/2024 1:05 PM EST Patient over 30 minutes late for appointment and provider out of office at hospital. Patient C/O frequency and urgency with urination. Requesting urine to be sent for testing. Layla Cherry APRN.CNM documented in this encounterBarberton Citizens Hospital11-20-2024 History of Present illness Narrative* Indiana Brown APRN.CNP - 09/17/2024 11:00 AM EST Images from the original note were not included. [facility] Follow up/ Established [...] stimulation Follow up 3 mos Indiana Stephanie, POLICE LIAISON OFFICER.HEAD CHARRER Here for follow up for RLS Doesn't [...] daughter is Conchita Vasquez who works in [employer]--and has told her she likely has RAMIRO. [...] due to drowsy drivin 03/13/2024 06/09/2024 09/16/2024 [place] Sleepiness Scale Score 3 (No clinically significant [...] which included preparing to see the patient, kadp-cu-fkmf patient care, completing clinical documentation, counseling and educating the patient/family/caregiver, and ordering medications, tests, or procedures. documented in this encounterBarberton Citizens Hospital11-20-2024 NoteHNO ID: [id number] Author: INDIANA BROWN APRN.CNP Service: ? Author Type: Nurse Practitioner Type: Progress Notes Filed: 09/17/2024 14:43 Note Text: [facility] Follow up/ Established [...] stimulation Follow up 3 mos Indiana Brown APRN.HEAD CHARRER Here for follow up for RLS Doesn't [...] daughter is Conchita Vasquez who works in [employer]--and has told her she likely has RAMIRO. [...] due to drowsy drivin 03/13/2024 06/09/2024 09/16/2024 [place] Sleepiness Scale Score 3 (No clinically significant [...] delightful 84 year o (more content not included)...[facility]11-20-2024 Telephone encounter Note* Telephone Encounter - Leigha Casarez RN - 09/17/2024 9:18 AM EST Patient notified and voiced understanding. Appointment scheduled. FYI. Leigha Casarez RN [facility]11-20-2024 Miscellaneous Notes* Telephone Encounter - Leigha Casarez [...] has an appointment at 11am at the [facility] with neuro and would like to stop at the lab then. Orders pending if okay or does she need an appointment? Kourtney Gutierrez RN documented in this encounterBarberton Citizens Hospital11-20-2024 Telephone encounter Note * Telephone Encounter - Indiana Auguste MD - 09/17/2024 9:06 AM EST needs appointment for rx. Can stop in here after and see CP for visit. Indiana Auguste MD [facility] Work Phone: [phone]) 800-832411-20-2024 Telephone encounter Note* Telephone Encounter - Kourtney Gutierrez RN - 09/17/2024 8:19 AM EST Patient calling c/o UTI symptoms. Having urinary urgency, frequency, lower back pain and dysuria. Stated that she gets these frequently in the past and asking for lab orders to be placed. She has an appointment at 11am at the [facility] with neuro and would like to stop at the lab then. Orders pending if okay or does she need an appointment? Kourtney Gutierrez RN [facility]09-24-2024 NoteHNO ID: [id number] Author: INDIANA AUGUSTE MD Service: ? Author Type: Physician Type: Progress Notes Filed: 07/22/2024 09:08 Note Text: José Miguel is a 84 year old who presents for an annual gynecologic exam without clinical trials specialist c/o.. 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 As applicable, any other physician, advance practice provider, medical student, or other health professional student that will be observing or involved in the sensitive examination for educational or training purposes was discussed with the Patient or Authorized Admin Asst. The Patient or Authorized Admin Asst has agreed to proceed with the sensitive [...] external genitalia normal, normal Bartholin's glands, urethra, Montz's glands, no vulvar lesions, physiologic discharge present, normal appearing perineal body and perianal region, cervix surgically absent, cystocele 3rd degree, rectocele 1st degree, atrophic flattened epithelium BIMANUAL: no adnexal masses, non-tender, and uterus surgically absent RECTOVAGINAL: deferred. ASSESSMENT/PLAN: 1) Health maintenance: Pap/HPV screening no longer needed Mammogram ordered BMD: up to date 2) Follow up one year or sooner as needed Indiana Auguste [facility]09-24-2024 History of Present illness Narrative* Indiana Auguste MD - 07/22/2024 8:40 AM EDT José Miguel is a 84 year old who presents for an annual gynecologic exam without clinical trials specialist c/o.. 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 As applicable, any other physician, advance practice provider, medical student, or other health professional student that will be observing or involved in the sensitive examination for educational or training purposes was discussed with the Patient or Authorized Admin Asst. The Patient or Authorized Admin Asst has agreed to proceed with the sensitive [...] external genitalia normal, normal Bartholin's glands, urethra, Montz's glands, no vulvar lesions, physiologic discharge present, [...] needed Indiana Auguste MD documented in this encounterBarber[facility]08-19-2024 History of Present illness Narrative* Indiana Brown APRN.HEAD CHARRER - 06/16/2024 10:00 AM EDT Images from the original note were not included. [facility] Follow up/ Established [...] suspiciousactivity was identified. 06/16/2024 by Indiana Brown APRN.[facility] SLEEP HYGIENE QUESTIONS: Bedtime : 10-11 pm [...] accidents due to drowsy drivin 03/13/2024 06/09/2024 [place] Sleepiness Scale Score 3 (No clinically significant [...] Appeal is in process for Nidra by [employer] wearable device for neuromuscular stimulation Follow up 3 mos Indiana Brown APRN.HEAD CHARRER documented in this encounterBarberton Citizens Hospital08-12-2024 Telephone encounter Note * Telephone Encounter - Bo Ferguson Racheal - 06/09/2024 2:21 PM EDTFrom: Baldo Grant To: Office of Babatunde Penaloza MD Sent: 06/09/2024 1:12 PM EDT Subject: Medication Renewal Request Refills have been requested for the following medications: erenumab-aooe (AIMOVIG AUTOINJECTOR) 140 mg/mL auto-injector [Babatunde Penaloza MD] Preferred pharmacy: [id number] [place] [phone] [address] [facility] [phone] Delivery method: Pickup [facility]08-12-2024 Miscellaneous Notes* Telephone Encounter - Bo FergusonRacheal - 06/09/2024 2:21 PM EDTFrom: Baldo Grant To: Office of Babatunde Penaloza MD Sent: 06/09/2024 1:12 PM EDT Subject: Medication Renewal Request Refills have been requested for the following medications: erenumab-aooe (AIMOVIG AUTOINJECTOR) 140 mg/mL auto-injector [Babatunde Penaloza MD] Preferred pharmacy: [facility] [address] [place] [phone] [address] [place] [phone] Delivery method: Pickup documented in this encounterBarberton Citizens Hospital05-20-2024 Telephone encounter Note * Telephone Encounter - Quiana Tejeda LPN - 03/17/2024 12:54 PM EDT Faxed Rx to [facility] pages to [employer] [phone] [facility] 03/17/2024. Quiana Tejeda LPN [facility]05-20-2024 Miscellaneous Notes* Telephone Encounter - Quiana Tejeda LPN - 03/17/2024 12:54 PM EDT Faxed Rx to [facility] pages to [employer] [phone] [facility] 03/17/2024. Quiana Tejeda LPN documented in this encounterBarberton Citizens Hospital05-20-2024 Telephone encounter Note * Telephone Encounter - Quiana Tejeda LPN - 03/17/2024 10:18 AM EDT Faxed OV with Torey Brown on 03/17/[address] [facility] [address] Cline [phone]. Quiana Tejeda LPN [facility]05-20-2024 Miscellaneous Notes* Telephone Encounter - Quiana Tejeda LPN - 03/17/2024 10:18 AM EDT Faxed OV with Torey Brown on 03/17/[address] [facility] [address] Cline [phone]. Quiana Tejeda LPN documented in this encounterBarberton Citizens Hospital05-20-2024 History of Present illness Narrative* Indiana Brown APRN.HEAD CHARRER - 03/17/2024 10:00 AM EDT Images from the original note were not included. [facility] Follow up/ Established [...] suspiciousactivity was identified. 03/17/2024 by Indiana Brown APRN.HEAD CHARRER PATIENT-ENTERED QUESTIONNAIRE SLEEP SCORES 03/13/2024 Sleep Questions Reason for visit: Restless Legs Syndrome On average, hours of sleep in 24 hours: 7 Accidents or near accidents due to drowsy drivin 03/13/2024 [place] Sleepiness Scale Score 3 (No clinically significant [...] mos Indiana Brown APRN.CNP documented in this encounterBarberton Citizens Hospital05-20-2024 Instructions* Patient Instructions* Indiana Brown APRN.CNP - 03/17/2024 9:49 AM EDT Labs today for iron stores Stop morning dose of pramipexole We will send prescription for Nidra wearable device by [employer] documented in this encounterBarberton Citizens Hospital04-05-2024 Miscellaneous Notes* Letter - Coordinator, [facility] - 02/01/2024 2:01 PM EDT February 01, 2024 PID: [id number] Baldo Grant [address] [place] [address] Dear Ms. Grant, We are pleased to [...] report will be kept on file at [facility] as part of your permanent medical record and are available for your continuing care. Thank you for allowing us to help in meeting your health care needs. Sincerely, Dr. Michael Interpreting Radiologist [facility] (Normal over 40) documented in this encounterBarberton Citizens Hospital04-04-2024 History of Present illness Narrative* Padilla Gallardo [...] PATIENT PRESENTS WITH AN IMPLANTABLE OR ATTACHED TIRE MOLD TESTER: No RADIOLOGY DEPARTMENT: Bone Density PERIPHERAL IV DATA: Not applicable SIGNED BY: RT Ophelia(R) January 31, 2024 8:16 AM documented in this encounterBarberton Citizens Hospital04-04-2024 History of Present illness Narrative* Emy Stern [...] PATIENT PRESENTS WITH AN IMPLANTABLE OR ATTACHED TIRE MOLD TESTER: No RADIOLOGY DEPARTMENT: Mammography PERIPHERAL IV DATA: Not applicable SIGNED BY: Ned Westbrook January 31, 2024 7:49 AM documented in this encounterBarberton Citizens Hospital02-20-2024 Telephone encounter Note * Telephone Encounter - [...] with plan of care. Quiana Tejeda LPN [facility]02-20-2024 Miscellaneous Notes* Telephone Encounter - Quiana Tejeda [...] care. Quiana Tejeda LPN documented in this encounterBarberton Citizens Hospital02-13-2024 Miscellaneous Notes* Telephone Encounter - Mildred Muhammad [...] Pharmacy Name: [facility] documented in this encounterBarberton Citizens Hospital08-25-2023 Miscellaneous Notes* Telephone Encounter - Lola Zambrano RN - 06/22/2023 12:32 PM EDT Provider: Shane Baum CNP pharmacy requesting refill via [employer]. Last OV: 03/08/2023 Future OV: None Scheduled Last prescribed: 04/13/2023 Requested Prescriptions Pending Prescriptions Disp Refills pramipexole (MIRAPEX) 0.5 mg tablet [Pharmacy Med Name: PRAMIPEXOLE 0.5 MG TABLET] 60 tablet 2 Sig: TAKE 1/2 TABLET IN AM AND 1 TABLET IN PM Request sent to provider to review. Thank you! documented in this encounterBarberton Citizens Hospital08-04-2023 Miscellaneous Notes* Telephone Encounter - Mirna Baum APRN.BRITTNEY - 06/01/2023 3:15 PM EDT PDMP website checked and validated. All prescriptions have been APPROPRIATELY filled. No suspiciousactivity was identified. June 01, 2023 Mirna Baum APRN.HEAD CHARRER * Telephone Encounter - Anne Ashford LPN [...] Dr. Penaloza as previously scheduled. Mirna Baum APRN.HEAD CHARRER documented in this encounterBarberton Citizens Hospital08-04-2023 Miscellaneous Notes* Telephone Encounter - Joshua Clemons [...] Pharmacy Name: [facility] documented in this encounterBarberton Citizens Hospital06-16-2023 Miscellaneous Notes* Telephone Encounter - Maddie Rodas MA - 04/13/2023 12:47 PM EDT Per provider, sig reads: Take 1/2 tablet in the am and 1 tablet in the pm. Spoke with pharmacy and advised of provider's message. documented in this encounterBarberton Citizens Hospital06-12-2023 History of Present illness Narrative* Shakira Connor [...] prn Alessandro Nelson DPM Podiatry [address] [facility] [address] Dept: [phone] Dept * Shakira Connor LPN - 04/09/2023 [...] scale. Shakira Connor LPN documented in this encounterBarberton Citizens Hospital06-12-2023 Instructions* Patient Instructions* Alessandro Nelson - 04/09/2023 2:37 PM EDT Powerstep Original Full length. Can purchase at [employer] here in [place], [employer] in [place] or [place]. Also can find in [employer] in [facility]. Powersteps can also be purchased online, [...] re-evaluated and/or additional treatments. documented in this encounterBarberton Citizens Hospital06-12-2023 History of Present illness Narrative* Maria Alejandra [...] 10, 2023 11:18 AM documented in this encounterBarberton Citizens Hospital06-06-2023 Miscellaneous Notes* Telephone Encounter - Enmanuel Phipps RN - 04/03/2023 3:03 PM EDT Ambulatory Pharmacy Prior Authorization Note Provider Intervention Required?: No- Pharmacy completed on your behalf. Rx Plan: [facility] Drug: Aimovig 140MG/ML auto-injectors Cover My Meds [place]bert: [id number] Determination: Approved Prior Authorization/Case #: [id number] Prior Authorization Expiration: 04/02/24 Time to PA [...] refills. Prescriptions will now be processed through [facility] for determination of next steps. For questions relating to this submission, please contact [facility] at [phone] documented in this encounterBarberton Citizens Hospital05-11-2023 History of Present illness Narrative* Mirna Baum, RICH.HEAD CHARRER - 03/08/2023 10:00 AM EDT Images from the original note were not included. [facility] Neurologic [place] Follow-up Visit Follow-up note March 08, 2023 [...] occasional tingling in her legs in the executive director. She would like to further attempt to [...] DATE OF EXAM: Dec 28 2021 4:31PM [facility] 0294 - MRI BRAIN WO IVCON / [...] which included preparing to see the patient, ibyd-[id number]-xifg patient care, completing clinical documentation, obtaining and/or reviewing separately obtained history, performing a medically appropriate examination, counseling and educating the pat ient/family/caregiver, and ordering medications, tests, or procedures. documented in this encounterBarberton Citizens Hospital04-25-2023 Miscellaneous Notes* Telephone Encounter - Indiana Rothman [...] this department: 05/18/2022 Babatunde Penaloza MD Last [facility] emergency department health visit in this department: Visit date [...] 0 Indiana Rothman RPh documented in this encounterBarberton Citizens Hospital03-29-2023 Miscellaneous Notes* Telephone Encounter - Mildred Muhammad - 01/24/2023 3:16 PM EDT Physician: Tremaine Call from patient requesting refill. Please E-Scribe Last office visit 11/23/22 with Tremaine dickens Next office visit Not scheduled. Requested Prescriptions Pending Prescriptions Disp Refills SUMAtriptan (IMITREX) 100 mg tablet 10 tablet 6 Sig: Take 1 tablet by mouth as needed (Migraine). Pharmacy Name: [facility] documented in this encounterBarberton Citizens Hospital03-21-2023 Miscellaneous Notes* Letter - Mammography Coordinator - 01/16/2023 2:19 PM EDT January 17, 2023 PID: [id number] Baldo Grant [address] [place] [address] Dear Ms. Grant, We are pleased to [...] report will be kept on file at [facility] as part of your permanent medical record and are available for your continuing care. Thank you for allowing us to help in meeting your health care needs. Sincerely, Dr. Michael Interpreting Radiologist [facility] (Normal over 40) documented in this encounterBarberton Citizens Hospital03-20-2023 History of Present illness Narrative* Mirna Burton [...] 15, 2023 10:23 AM documented in this encounterBarberton Citizens Hospital02-20-2023 Miscellaneous Notes* Telephone Encounter - Anne Ashford [...] was identified. December 18, 2022 Mirna Baum APRN.HEAD CHARRER * Telephone Encounter - Anne Ashford LPN [...] occasional tingling in her legs in the executive director. She would like to further attempt to [...] Keep follow up as scheduled. Mirna Baum APRN.HEAD CHARRER documented in this encounterBarberton Citizens Hospital01-26-2023 History of Present illness Narrative* Babatunde Penaloza [...] Patient and/or parent(s) verbally consented to visit. [facility] Neurological [place] Follow up visit History of Present Illness: [...] this appointment visit was 20 minutes of dcxy-it-xpgs time with the patient. At least 50% of this time was spent in counseling, explanation of diagnosis, planning of further management, and coordination of care. Portions of this note have been composed using voice recognition and may contain department helper errors Babatunde Penaloza M.D. [facility] Associate Staff Department of Neurology Referring provider: Babatunde Penaloza [address] [facility] [address] Primary care provider: Mary Azar [address] [place] [phone] documented in this encounterBarberton Citizens Hospital12-12-2022 Miscellaneous Notes* Telephone Encounter - Gayle Gomez [...] Patient [facility] [place] * Telephone Encounter - Gayle Gomez LPN - 10/09/2022 10:55 AM EST ----- Message from Indiana Auguste MD sent at 10/09/2022 10:20 AM EST ----- Let her know + urine culture. Get pharmacy preference and I will send in rx. Indiana Auguste MD documented in this encounterBarberton Citizens Hospital12-07-2022 Miscellaneous Notes* Addendum Note - Indiana Auguste MD - 10/04/2022 2:47 PM ESTAddended by: INDIANA AUGUSTE on: 10/04/2022 02:47 PM Modules accepted: Orders * Addendum Note - Jannet Wells Ma - 10/04/2022 2:10 PM ESTAddended by: JANNET WELLS MA on: 10/04/2022 02:10 PM Modules accepted: Orders documented in this encounterBarberton Citizens Hospital12-07-2022 Instructions* Patient Instructions* Jannet Wells Ma - [...] your usual activities immediately. 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 Continue to monitor. She will call with additional concerns. Otherwise will be reevaluated in 1 year. [id number] Miscellaneous Notes* Assessment & Plan Note - Pavan James MD - 08/24/2022 1:33 PM EDTAssociated Problem(s): Incomplete uterine prolapse Remains relatively asymptomatic, demonstrates appropriate bladder emptying. Continue to monitor. She will call with additional concerns. Otherwise will be reevaluated in 1 year. documented in this [id number] History of Present illness Narrative* Pavan James [...] NOT EDITED TO EXPEDITE. documented in this [id number] Miscellaneous Notes* Telephone Encounter - Dionna Bearden - 08/21/2022 4:25 PM EDT Sent [email or web address] message to José Miguel to assist in rescheduling appointment. Thank you, Dionna Bearden documented in this encounterBarberton Citizens Hospital09-02-2022 Miscellaneous Notes* Telephone Encounter - Mariana Simons [...] occasional tingling in her legs in the executive director. She would like to further attempt to [...] 30, 2022 9:20 AM documented in this encounterBarberton Citizens Hospital08-19-2022 History of Present illness Narrative* Mirna Baum APRN.BRITTNEY - 06/16/2022 3:30 PM EDT Images from the original note were not included. [facility] Neurologic [place] Follow-up Visit Follow-up note June 16, 2022 [...] DATE OF EXAM: Dec 28 2021 4:31PM [facility] 0294 - MRI BRAIN WO IVCON / [...] occasional tingling in her legs in the executive director. She would like to further attempt to [...] which included preparing to see the patient, weqq-un-aiku patient care, completing clinical documentation, obtaining and/or reviewing separately obtained history, performing a medically appropriate examination, counseling and educating the pat ient/family/caregiver, and ordering medications, tests, or procedures. documented in this encounterBarberton Citizens Hospital07-21-2022 Instructions* Patient Instructions* Babatunde Penaloza MD - 05/18/2022 4:21 PM EDT Continue Aimovig Continue Imitrex as needed Contact me if a repeat nerve block needed Follow up in 6 months documented in this encounterBarberton Citizens Hospital07-21-2022 History of Present illness Narrative* Babatunde Penaloza MD - 05/18/2022 4:16 PM EDT [facility] Neurological [place] Follow up visit History of Present Illness: [...] this appointment visit was 30 minutes of lvkk-qa-ydqe time with the patient. At least 50% of this time was spent in counseling, explanation of diagnosis, planning of further management, and coordination of care. Portions of this note have been composed using voice recognition and may contain department helper errors Babatunde Penaloza M.D. [facility] Associate Staff Department of Neurology Referring provider: Babatunde Penaloza [address] [facility] [address] Primary care provider: Mary Azar [address] [place] [phone] documented in this encounterBarberton Citizens Hospital06-06-2022 Miscellaneous Notes* Telephone Encounter - Mirna Baum [...] CECIL Class: C-V LALITHA: No Pharmacy Name: [facility] Pharmacy Phone #: [phone] Yudi Brown 01/19/22 Assessment/Plan: G25.81 RLS (restless [...] clinic as previously scheduled. documented in this encounterBarberton Citizens Hospital06-03-2022 Miscellaneous Notes* Telephone Encounter - Yudi Brown Pss - 03/31/2022 11:36 AM EDT Called the patient and scheduled for follow-up appointment. documented in this encounterBarberton Citizens Hospital04-11-2022 Miscellaneous Notes* Telephone Encounter - Mirna Baum [...] appt in three months. documented in this encounterBarberton Citizens Hospital03-02-2022 NoteHNO ID: [id number] Author: RT Rory(R) Service: Radiology Author Type: [...] Linda Burns RT(R) December 28, 2021 4[facility] Miscellaneous Notes* Assessment & Plan Note - Pavan James MD - 08/17/2021 11:37 AM EDT Associated Problem(s): Cystocele, midline Stable, with mild bother symptoms and a normal postvoid residual she elects for continued observation. Precautions were reviewed. Return to the office in 1 year or as needed. documented in this [id number] History of Present illness Narrative* Pavan James [...] NOT EDITED TO EXPEDITE. documented in this encounterMetroHealth [facility] CenterEvaluation [facility]* Diagnosis Cystocele, midline documented in this encounter [facility] note* Diagnosis RLS (restless legs syndrome)- Primary Restless legs syndrome (RLS) documented in this encounter [facility] note* Diagnosis RLS (restless legs syndrome) Restless legs syndrome (RLS) documented in this encounter [facility] note* Diagnosis Migraine without aura and without status migrainosus, not intractable- Primary Migraine without aura, without mention of intractable migraine without mention of status migrainosus documented in this encounter [facility] note* Diagnosis RLS (restless legs syndrome)- Primary Restless legs syndrome (RLS) Intractable episodic headache, unspecified headache type documented in this encounter [facility] note* Diagnosis RLS (restless legs syndrome) Restless legs syndrome (RLS) documented in this encounter [facility] note* Diagnosis RLS (restless legs syndrome) Restless legs syndrome (RLS) documented in this encounter [facility] note* Diagnosis Cystocele, midline- Primary Incomplete uterine prolapse documented in this encounter [facility] noteNo assessment information availableWTrinity Health [facility] Work Phone: Evaluation note* Diagnosis Encounter for gynecological examination (general) (routine) without abnormal findings- Primary Encounter for screening mammogram for breast cancer Encounter for screening for osteoporosis Special screening for osteoporosis Vaginal irritation Unspecified noninflammatory disorder of vagina documented in this encounter [facility] note* Diagnosis RLS (restless legs syndrome) Restless legs syndrome (RLS) documented in this encounter [facility] note* Diagnosis RLS (restless legs syndrome) Restless legs syndrome (RLS) documented in this encounter [facility] note* Diagnosis Migraine without aura and without status migrainosus, not intractable- Primary Migraine without aura, without mention of intractable migraine without mention of status migrainosus documented in this encounter [facility] note* Diagnosis RLS (restless legs syndrome) Restless legs syndrome (RLS) documented in this encounter [facility] note* Diagnosis Pain in right foot- Primary Pain in limb documented in this encounter [facility] note* Diagnosis RLS (restless legs syndrome)- Primary Restless legs syndrome (RLS) Intractable episodic headache, unspecified headache type documented in this encounter [facility] note* Diagnosis Porokeratosis- Primary Other specified congenital anomaly of skin documented in this encounter [facility] note* Diagnosis RLS (restless legs syndrome) Restless legs syndrome (RLS) documented in this encounter [facility] note* Diagnosis Pain in right foot Pain in limb documented in this encounter [facility] note* Diagnosis Encounter for gynecological examination (general) (routine) without abnormal findings Encounter for screening mammogram for breast cancer documented in this encounter [facility] note* Diagnosis At risk for decreased bone density Other specified conditions influencing health status documented in this encounter [facility] note* Diagnosis Encounter for screening mammogram for malignant neoplasm of breast Other screening mammogram [facility]* Diagnosis RLS (restless legs syndrome)- Primary Restless legs syndrome (RLS) documented in this encounter [facility] note* Diagnosis RLS (restless legs syndrome)- Primary Restless legs syndrome (RLS) documented in this encounter [facility] note* Diagnosis Encounter for routine gynecologic examination in Medicare patient- Primary Encounter for screening mammogram for breast cancer documented in this encounter [facility] note* Diagnosis Urinary urgency- Primary Urgency of urination Urinary frequency documented in this encounter [facility] note* Diagnosis RLS (restless legs syndrome)- Primary Restless legs syndrome (RLS) documented in this encounter [facility] note* Diagnosis Urinary frequency- Primary Urinary urgency Urgency of urination Dysuria documented in this encounter [facility] note* Diagnosis RLS (restless legs syndrome)- Primary Restless legs syndrome (RLS) Insomnia, unspecified type documented in this encounter [facility] note* Diagnosis Encounter for routine gynecologic examination in Medicare patient Encounter for screening mammogram for breast cancer documented in this encounter [facility] note* Diagnosis Migraine without aura and without status migrainosus, not intractable- Primary Migraine without aura, without mention of intractable migraine without mention of status migrainosus documented in this encounter [facility] note* Diagnosis RLS (restless legs syndrome)- Primary Restless legs syndrome (RLS) Chronic insomnia Insomnia, unspecified documented in this encounter [facility] for referral (narrative)* Diagnostic Procedure Only [...] CAD Indiana Auguste MD [address] [place] [address] [facility] [address] [place] [phone] Referral ID Status Reason Start Date Expiration Date Visits Requested Visits Authorized [id number] Pending Review Auto-Generat ed Referral 10/04/2022 11/03/2023 1 1 [facility] for referral (narrative)* Diagnostic Procedure Only (Routine) - Pending Review Specialty Diagnoses / Procedures Referred By Contac t Referred To Contact XR IMAGING Diagnoses Pain in right foot Procedures XR FOOT GENERAL 3V AP/LAT/OBL RIGHT RADEX FOOT COMPLETE MINIMUM 3 VIEWS Alessandro Nelson [address] [place] [address] Xr Imaging Referral ID Status Reason Start Date Expiration Date Visits Requested Visits Authorized [id number] Pending Review Auto-Generat ed Referral 02/19/2023 03/20/2024 1 1 [facility] for referral (narrative)* Diagnostic Procedure Only (Routine) - Closed Specialty Diagnoses / Procedures Referred By Contac t Referred To Contact XR IMAGING Diagnoses Pain in right foot Procedures XR FOOT GENERAL 3V AP/LAT/OBL RIGHT RADEX FOOT COMPLETE MINIMUM 3 VIEWS Alessandro Nelson [address] [place] [address] [place] [address] Referral ID Status Reason Start Date Expiration Date V isits Requested Visits Authorized [id number] Closed Auto-Generate d Referral 02/19/2023 03/20/2024 1 1 [facility] for referral (narrative)* Diagnostic Procedure Only [...] Indiana Auguste MD [address] [place] [address] [facility] [address] [facility] [place] [address] Referral ID Status Reason Start Date Expiration Date V isits Requested Visits Authorized [id number] Closed Auto-Generate d Referral 10/04/2022 11/03/2023 1 [...] Indiana Solorio MD [address] [place] [address] [facility] [address] [place] [address] Referral ID Status Reason Start Date Expiration Date Visits Requested Visits Authorized [id number] Authorized Auto-Generat ed Referral 07/22/2024 08/21/2025 1 1 [facility] for referral (narrative)No reason for referral information [facility] Phone: Reason for visit Narrative* Diagnostic Procedure Only (Routine) - Closed Specialty Diagnoses / Procedures Referred By Shannan oconnor Referred To Contact XR IMAGING Diagnoses Pain in right foot Procedures XR FOOT GENERAL 3V AP/LAT/OBL RIGHT RADEX FOOT COMPLETE MINIMUM 3 VIEWS Alessandro Nelson [address] [place] [address] [place] [address] Referral ID Status Reason Start Date Expiration Date V isits Requested Visits Authorized [id number] Closed Auto-Generate d Referral 02/19/2023 03/20/2024 1 1 [facility] for visit Narrative* Diagnostic Procedure Only (Routine) - Closed Specialty Diagnoses / Procedures Referred By Shannan oconnor Referred To Contact BR IMAGING Diagnoses Encounter for gynecological examination (general) (routine) without abnormal findings Encounter for screening mammogram for breast cancer Procedures DARBY SCREENING W MURTAZA SCREENING DIGITAL BREAST TOMOSYNTHESIS BI SCREENING MAMMOGRAPHY BI 2-VIEW BREAST INC Indiana Solorio MD [address] [place] [address] [facility] Imaging [address] [place] [address] Referral ID Status Reason Start Date Expiration Date V isits Requested Visits Authorized [id number] Closed Auto-Generate d Referral 10/04/2022 11/03/2023 1 1 [facility] for visit Narrative* Diagnostic Procedure Only (Routine) - Closed Specialty Diagnoses / Procedures Referred By Shannan oconnor Referred To Contact XR IMAGING Diagnoses At risk for decreased bone density Procedures DXA-AXIAL SKELETON Indiana Auguste MD [address] [place] [address] [place] [address] Referral ID Status Reason Start Date Expiration Date V isits Requested Visits Authorized [id number] Closed Auto-Generate d Referral 01/21/2024 02/16/2025 1 1 [facility] for visit Narrative* Diagnostic Procedure Only (Routine) - Closed Specialty Diagnoses / Procedures Referred By Shannan oconnor Referred To Contact BR IMAGING Diagnoses Encounter for screening mammogram for malignant neoplasm of breast Procedures DARBY SCREENING W MURTAZA SCREENING DIGITAL BREAST TOMOSYNTHESIS BI SCREENING MAMMOGRAPHY BI 2-VIEW BREAST INC CAD Indiana Auguste MD [address] [place] [address] [facility] [address] [place] [address] Referral ID Status Reason Start Date Expiration Date V isits Requested Visits Authorized [id number] Closed Auto-Generate d Referral 01/21/2024 02/16/2025 1 1 [facility] for visit Narrative* Diagnostic Procedure Only (Routine) - Closed Specialty Diagnoses / Procedures Referred By Shannan oconnor Referred To Contact BR IMAGING Diagnoses Encounter for routine gynecologic examination in Medicare patient Encounter for screening mammogram for breast cancer Procedures DARBY SCREENING W MURTAZA SCREENING DIGITAL BREAST TOMOSYNTHESIS BI SCREENING MAMMOGRAPHY BI 2-VIEW BREAST INC CAD Indiana Auguste MD [address] [place] [address] Phone: tel: fax: [facility] [address] [place] [address] Referral ID Status Reason Start Date Expiration Date V isits Requested Visits Authorized [id number] Closed Auto-Generate d Referral 07/22/2024 08/21/2025 1 1 [facility] Summary Purpose Family History No Family History Records Found Relationship Condition Age at Onset Recorded Date/T tu father Myocardial infarction Unknown brother Malignant neoplasm of pancreas Unknown sister Malignant neoplasm of lung Unknown Advance Directives No Advanced Directives Records FoundDocuments on File Type Date Recorded 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 Yes July 05, 2025 9:55am Reason for Referral Specialty Diagnoses / Procedures Referred By Contac t [place] [address] [place] [address] Referral ID Status Reason Start Date Expiration Date Visits Re quested Visits Authorized [id number] Closed 1 1 Chief Complaint and Reason for Visit Chief Complaint Admit Date SYNCOPE July 05, 2025 9:45am Additional Source Comments INFORMATION SOURCE (unrecogn ized section and content) DATE CREATED AUTHOR 04/23/2018 [facility] ([place]) DATE CREATED AUTHOR AUTHOR'S ORGANIZ ATION 08/18/2021 [facility] DATE CREATED AUTHOR AUTHOR'S ORGANIZ ATION 12/29/2021 [facility] DATE CREATED AUTHOR AUTHOR'S ORGANIZ ATION 08/29/2022 [facility] DATE CREATED AUTHOR AUTHOR'S ORGANIZ ATION 07/12/2025 [facility] DATE CREATED AUTHOR AUTHOR'S ORGANIZ ATION 07/12/2025 [facility] Care Teams (unrecognized sec tion and content) Fish Fryer Relationship Specialty Start Date End Date Rupali Cline, DO [address] [place] [address] PCP - General Family Medicine 08/17/20 Fish Fryer Relationship Specialty Start Date End Date Mary Azar DO PCP - General 11/29/09 Fish Fryer Relationship Specialty Start Date End Date Mary Azar DO PCP - General 11/29/09 Fish Fryer Relationship Specialty Start Date End Date Fast Mary A, DO PCP - General 11/29/09 Fish Fryer Relationship Specialty Start Date End Date Fast Mary A, DO PCP - General 11/29/09 Fish Fryer Relationship Specialty Start Date End Date Fast Mary A, DO PCP - General 11/29/09 Fish Fryer Relationship Specialty Start Date End Date Fast Mary A, DO PCP - General 11/29/09 Fish Fryer Relationship Specialty Start Date End Date Rupali Cline, DO [address] [place], [place] [phone] PCP - General Family Medicine 08/17/20 Fish Fryer Relationship Specialty Start Date End Date Rupali Cline, DO [address] [place], [place] [phone] PCP - General Family Medicine 08/17/20 Fish Fryer Relationship Specialty Start Date End Date Doe Mary A, DO PCP - General 11/29/09 Fish Fryer Relationship Specialty Start Date End Date Fast Mary A, DO PCP - General 11/29/09 Fish Fryer Relationship Specialty Start Date End Date Fast, Mary A, DO PCP - General 11/29/09 Fish Fryer Relationship Specialty Start Date End Date Fast, Mary A, DO PCP - General 11/29/09 Fish Fryer Relationship Specialty Start Date End Date Fast, Mary A, DO PCP - General 11/29/09 Fish Fryer Relationship Specialty Start Date End Date FastMary DO PCP - General 11/29/09 Fish Fryer Relationship Specialty Start Date End Date Fast Mary A, DO PCP - General 11/29/09 Fish Fryer Relationship Specialty Start Date End Date Fast Mary A DO PCP - General 11/29/09 Fish Fryer Relationship Specialty Start Date End Date Fast Mary A DO PCP - General 11/29/09 Fish Fryer Relationship Specialty Start Date End Date Mary Azar DO PCP - General 11/29/09 Team Status: Active Member Role Status Dates Dr. Rupali Cline DO Family Provider Active Dr. Rupali Cline DO Primary Care Provider Active Team Status: Inactive Member Role Status Dates Dr. Rupali Cline DO Primary Care Provider, [facility] g Provider Active Fish Fryer Relationship Specialty Start Date End Date Mary Azar DO PCP - General 11/29/09 Fish Fryer Relationship Specialty Start Date End Date Mary Azar DO PCP - General 11/29/09 Fish Fryer Relationship Specialty Start Date End Date Fast Mary A DO PCP - General 11/29/09 Fish Fryer Relationship Specialty Start Date End Date Mary Azar DO PCP - General 11/29/09 Fish Fryer Relationship Specialty Start Date End Date Rupali Cline DO [address] [place] [address] PCP - General Family Medicine 03/17/24 Fish Fryer Relationship Specialty Start Date End Date Rupali Cline [address] [place] [address] PCP - General Family Medicine 03/17/24 Fish Fryer Relationship Specialty Start Date End Date Mary AzarDO PCP - General 11/29/09 03/16/24 SonRupali taiDO [address] [place] [address] PCP - General Family Medicine 03/17/24 Fish Fryer Relationship Specialty Start Date End Date SonRupali baileyDO [address] [place] [address] PCP - General Family Medicine 03/17/24 Fish Fryer Relationship Specialty Start Date End Date SonRupali baileyDO [address] [place] [address] PCP - General Family Medicine 03/17/24 Fish Fryer Relationship Specialty Start Date End Date SonRupaliDO [address] [place] [phone] PCP - General Family Medicine 03/17/24 Fish Fryer Relationship Specialty Start Date End Date Rupali Cline DarrenDO [address] [place] [phone] PCP - General Family Medicine 03/17/24 Fish Fryer Relationship Specialty Start Date End Date Rupali Cline DO [address] [place] [phone] PCP - General Family Medicine 03/17/24 Fish Fryer Relationship Specialty Start Date End Date Rupali Cline DO [address] [place] [phone] PCP - General Family Medicine 03/17/24 Fish Fryer Relationship Specialty Start Date End Date Rupali Cline [address] [place] [phone] PCP - General Family Medicine 03/17/24 Fish Fryer Relationship Specialty Start Date End Date Rupali Cline [address] [place] [phone] PCP - General Family Medicine 03/17/24 Fish Fryer Relationship Specialty Start Date End Date Rupali Cline [address] [place] [phone] PCP - General Family Medicine 03/17/24 Team Status: Active Member Role/Relationship Status Dates Dr. Rupali Cline DO Primary Care Provider Active Team Status: Inactive Member Role/Relationship Status Dates Dr. Rupali Cline DO Primary Care Provider Active Start: July 05, 2025 End: July 05, 2025 Dr. Carlton Vasquez MD Emergency Provider Active Start: July 05, 2025 End: July 05, 2025 Fish Fryer Relationship Specialty Start Date End Date Rupali Cline DO [address] [place] [phone] PCP - General Family Medicine 03/17/24 Source Comments (unrecognize d section and content) In the event this informatio n is protected by the Federal Confidentiality of Alcohol and Drug Abuse Patient Records regulations: The Federal rules restrict any use of the information to criminally investigate or prosecute any alcohol or drug abuse patient.[facility] the event this information is protected by the Federal Confidentiality of Alcohol and Drug Abuse Patient Records regulations: The Federal rules restrict any use of the information to criminally investigate or prosecute any alcohol or drug abuse patient.[facility] the event this information is protected by the Federal Confidentiality of Alcohol and Drug Abuse Patient Records regulations: The Federal rules restrict any use of the information to criminally investigate or prosecute any alcohol or drug abuse patient.[facility] the event this information is protected by the Federal Confidentiality of Alcohol and Drug Abuse Patient Records regulations: The Federal rules restrict any use of the information to criminally investigate or prosecute any alcohol or drug abuse patient.[facility] the event this information is protected by the Federal Confidentiality of Alcohol and Drug Abuse Patient Records regulations: The Federal rules restrict any use of the information to criminally investigate or prosecute any alcohol or drug abuse patient.[facility] the event this information is protected by the Federal Confidentiality of Alcohol and Drug Abuse Patient Records regulations: The Federal rules restrict any use of the information to criminally investigate or prosecute any alcohol or drug abuse patient.[facility] the event this information is protected by the Federal Confidentiality of Alcohol and Drug Abuse Patient Records regulations: The Federal rules restrict any use of the information to criminally investigate or prosecute any alcohol or drug abuse patient.[facility] the event this information is protected by the Federal Confidentiality of Alcohol and Drug Abuse Patient Records regulations: The Federal rules restrict any use of the information to criminally investigate or prosecute any alcohol or drug abuse patient.[facility] the event this information is protected by the Federal Confidentiality of Alcohol and Drug Abuse Patient Records regulations: The Federal rules restrict any use of the information to criminally investigate or prosecute any alcohol or drug abuse patient.[facility] the event this information is protected by the Federal Confidentiality of Alcohol and Drug Abuse Patient Records regulations: The Federal rules restrict any use of the information to criminally investigate or prosecute any alcohol or drug abuse patient.[facility] the event this information is protected by the Federal Confidentiality of Alcohol and Drug Abuse Patient Records regulations: The Federal rules restrict any use of the information to criminally investigate or prosecute any alcohol or drug abuse patient.[facility] the event this information is protected by the Federal Confidentiality of Alcohol and Drug Abuse Patient Records regulations: The Federal rules restrict any use of the information to criminally investigate or prosecute any alcohol or drug abuse patient.[facility] the event this information is protected by the Federal Confidentiality of Alcohol and Drug Abuse Patient Records regulations: The Federal rules restrict any use of the information to criminally investigate or prosecute any alcohol or drug abuse patient.[facility] the event this information is protected by the Federal Confidentiality of Alcohol and Drug Abuse Patient Records regulations: The Federal rules restrict any use of the information to criminally investigate or prosecute any alcohol or drug abuse patient.[facility] the event this information is protected by the Federal Confidentiality of Alcohol and Drug Abuse Patient Records regulations: The Federal rules restrict any use of the information to criminally investigate or prosecute any alcohol or drug abuse patient.[facility] the event this information is protected by the Federal Confidentiality of Alcohol and Drug Abuse Patient Records regulations: The Federal rules restrict any use of the information to criminally investigate or prosecute any alcohol or drug abuse patient.[facility] the event this information is protected by the Federal Confidentiality of Alcohol and Drug Abuse Patient Records regulations: The Federal rules restrict any use of the information to criminally investigate or prosecute any alcohol or drug abuse patient.[facility] the event this information is protected by the Federal Confidentiality of Alcohol and Drug Abuse Patient Records regulations: The Federal rules restrict any use of the information to criminally investigate or prosecute any alcohol or drug abuse patient.[facility] the event this information is protected by the Federal Confidentiality of Alcohol and Drug Abuse Patient Records regulations: The Federal rules restrict any use of the information to criminally investigate or prosecute any alcohol or drug abuse patient.[facility] the event this information is protected by the Federal Confidentiality of Alcohol and Drug Abuse Patient Records regulations: The Federal rules restrict any use of the information to criminally investigate or prosecute any alcohol or drug abuse patient.[facility] the event this information is protected by the Federal Confidentiality of Alcohol and Drug Abuse Patient Records regulations: The Federal rules restrict any use of the information to criminally investigate or prosecute any alcohol or drug abuse patient.[facility] the event this information is protected by the Federal Confidentiality of Alcohol and Drug Abuse Patient Records regulations: The Federal rules restrict any use of the information to criminally investigate or prosecute any alcohol or drug abuse patient.[facility] the event this information is protected by the Federal Confidentiality of Alcohol and Drug Abuse Patient Records regulations: The Federal rules restrict any use of the information to criminally investigate or prosecute any alcohol or drug abuse patient.[facility] the event this information is protected by the Federal Confidentiality of Alcohol and Drug Abuse Patient Records regulations: The Federal rules restrict any use of the information to criminally investigate or prosecute any alcohol or drug abuse patient.[facility] the event this information is protected by the Federal Confidentiality of Alcohol and Drug Abuse Patient Records regulations: The Federal rules restrict any use of the information to criminally investigate or prosecute any alcohol or drug abuse patient.[facility] the event this information is protected by the Federal Confidentiality of Alcohol and Drug Abuse Patient Records regulations: The Federal rules restrict any use of the information to criminally investigate or prosecute any alcohol or drug abuse patient.[facility] the event this information is protected by the Federal Confidentiality of Alcohol and Drug Abuse Patient Records regulations: The Federal rules restrict any use of the information to criminally investigate or prosecute any alcohol or drug abuse patient.[facility] the event this information is protected by the Federal Confidentiality of Alcohol and Drug Abuse Patient Records regulations: The Federal rules restrict any use of the information to criminally investigate or prosecute any alcohol or drug abuse patient.[facility]In the event this information is protected by the Federal Confidentiality of Alcohol and Drug Abuse Patient Records regulations: The Federal rules restrict any use of the information to criminally investigate or prosecute any alcohol or drug abuse patient.[facility]In the event this information is protected by the Federal Confidentiality of Alcohol and Drug Abuse Patient Records regulations: The Federal rules restrict any use of the information to criminally investigate or prosecute any alcohol or drug abuse patient.[facility] the event this information is protected by the Federal Confidentiality of Alcohol and Drug Abuse Patient Records regulations: The Federal rules restrict any use of the information to criminally investigate or prosecute any alcohol or drug abuse patient.[facility] the event this information is protected by the Federal Confidentiality of Alcohol and Drug Abuse Patient Records regulations: The Federal rules restrict any use of the information to criminally investigate or prosecute any alcohol or drug abuse patient.[facility]In the event this information is protected by the Federal Confidentiality of Alcohol and Drug Abuse Patient Records regulations: The Federal rules restrict any use of the information to criminally investigate or prosecute any alcohol or drug abuse patient.[facility] the event this information is protected by the Federal Confidentiality of Alcohol and Drug Abuse Patient Records regulations: The Federal rules restrict any use of the information to criminally investigate or prosecute any alcohol or drug abuse patient.[facility]In the event this information is protected by the Federal Confidentiality of Alcohol and Drug Abuse Patient Records regulations: The Federal rules restrict any use of the information to criminally investigate or prosecute any alcohol or drug abuse patient.[facility]In the event this information is protected by the Federal Confidentiality of Alcohol and Drug Abuse Patient Records regulations: The Federal rules restrict any use of the information to criminally investigate or prosecute any alcohol or drug abuse patient.[facility]In the event this information is protected by the Federal Confidentiality of Alcohol and Drug Abuse Patient Records regulations: The Federal rules restrict any use of the information to criminally investigate or prosecute any alcohol or drug abuse patient.[facility]In the event this information is protected by the Federal Confidentiality of Alcohol and Drug Abuse Patient Records regulations: The Federal rules restrict any use of the information to criminally investigate or prosecute any alcohol or drug abuse patient.[facility] the event this information is protected by the Federal Confidentiality of Alcohol and Drug Abuse Patient Records regulations: The Federal rules restrict any use of the information to criminally investigate or prosecute any alcohol or drug abuse patient.[facility]In the event this information is protected by the Federal Confidentiality of Alcohol and Drug Abuse Patient Records regulations: The Federal rules restrict any use of the information to criminally investigate or prosecute any alcohol or drug abuse patient.[facility]In the event this information is protected by the Federal Confidentiality of Alcohol and Drug Abuse Patient Records regulations: The Federal rules restrict any use of the information to criminally investigate or prosecute any alcohol or drug abuse patient.[facility]In the event this information is protected by the Federal Confidentiality of Alcohol and Drug Abuse Patient Records regulations: The Federal rules restrict any use of the information to criminally investigate or prosecute any alcohol or drug abuse patient.[facility]In the event this information is protected by the Federal Confidentiality of Alcohol and Drug Abuse Patient Records regulations: The Federal rules restrict any use of the information to criminally investigate or prosecute any alcohol or drug abuse patient.[facility]In the event this information is protected by the Federal Confidentiality of Alcohol and Drug Abuse Patient Records regulations: The Federal rules restrict any use of the information to criminally investigate or prosecute any alcohol or drug abuse patient.[facility] the event this information is protected by the Federal Confidentiality of Alcohol and Drug Abuse Patient Records regulations: The Federal rules restrict any use of the information to criminally investigate or prosecute any alcohol or drug abuse patient.[facility]In the event this information is protected by the Federal Confidentiality of Alcohol and Drug Abuse Patient Records regulations: The Federal rules restrict any use of the information to criminally investigate or prosecute any alcohol or drug abuse patient.[facility]In the event this information is protected by the Federal Confidentiality of Alcohol and Drug Abuse Patient Records regulations: The Federal rules restrict any use of the information to criminally investigate or prosecute any alcohol or drug abuse patient.[facility]In the event this information is protected by the Federal Confidentiality of Alcohol and Drug Abuse Patient Records regulations: The Federal rules restrict any use of the information to criminally investigate or prosecute any alcohol or drug abuse patient.[facility]In the event this information is protected by the Federal Confidentiality of Alcohol and Drug Abuse Patient Records regulations: The Federal rules restrict any use of the information to criminally investigate or prosecute any alcohol or drug abuse patient.[facility]In the event this information is protected by the Federal Confidentiality of Alcohol and Drug Abuse Patient Records regulations: The Federal rules restrict any use of the information to criminally investigate or prosecute any alcohol or drug abuse patient.[facility]In the event this information is protected by the Federal Confidentiality of Alcohol and Drug Abuse Patient Records regulations: The Federal rules restrict any use of the information to criminally investigate or prosecute any alcohol or drug abuse patient.[facility]In the event this information is protected by the Federal Confidentiality of Alcohol and Drug Abuse Patient Records regulations: The Federal rules restrict any use of the information to criminally investigate or prosecute any alcohol or drug abuse patient.[facility]In the event this information is protected by the Federal Confidentiality of Alcohol and Drug Abuse Patient Records regulations: The Federal rules restrict any use of the information to criminally investigate or prosecute any alcohol or drug abuse patient.[facility]In the event this information is protected by the Federal Confidentiality of Alcohol and Drug Abuse Patient Records regulations: The Federal rules restrict any use of the information to criminally investigate or prosecute any alcohol or drug abuse patient.[facility] HospitalIn the event this information is protected by the Federal Confidentiality of Alcohol and Drug Abuse Patient Records regulations: The Federal rules restrict any use of the information to criminally investigate or prosecute any alcohol or drug abuse patient.[facility] Reason for Visit (unrecogniz ed section [...] BE BASED ON THE PRIMARY CLINICAL RECORDS. [facility] [employer] [facility]. provides no warranty or guarantee of the accuracy or completeness of information in this document.
--- NOTE | 2025-07-18 01:35 | CT_ITS ---
PROCEDURE: STROKE CTA HEAD AND NECK W/CON 07/18/2025 REASON FOR EXAM: NEURO DEFICIT, ACUTE, STROKE SUSPECTED TECHNIQUE: Procedure Code: [id number].ST.HN Modality: CT Procedure: STROKE CTA HEAD AND NECK W/CON Multiplanar Sagittal and Coronal images were obtained. CONTRAST: Isovue-300 70 VOLUME: 100 mL One or more dose reduction techniques were used (e.g., Automated exposure control, adjustment of the mA and/or kV according to patient size, use of iterative reconstruction technique). RADIATION DOSE SUMMARY: CTDlvol: 18.68 mGy DLP: 705 mGycm COMPARISON: CT scan on 07/17/2025. FINDINGS: Normal bilateral petrous carotid arteries. Atheromatous plaques with mild multifocal stenosis of the right cavernous carotid artery with a normal supraclinoid bifurcation. Atheromatous plaques with mild multifocal stenosis of the left cavernous carotid artery with a normal supraclinoid bifurcation. Normal right A1 segments of the anterior cerebral artery. Normal left A1 segments of the anterior cerebral artery. Normal intact anterior communicating artery (ACOM). Normal bilateral A2 segments of the anterior cerebral arteries. Normal right M1 and M2 segments of the middle cerebral arteries, with a normal M1 bifurcation. Normal left M1 and M2 segments of the middle cerebral arteries, with a normal M1 bifurcation. Normal right posterior communicating artery (PCOM). Normal left posterior communicating artery (PCOM). Normal bilateral vertebral arteries. Normal basilar artery with a normal basilar bifurcation. The visualized bilateral superior cerebellar (SCA) arteries are normal. Normal bilateral P1, P2 and visualized P3 segments of the posterior cerebral arteries. There is no demonstrated aneurysm of the [place] of [place]. There is no major vessel occlusion or hemodynamically significant stenosis. RIGHT CAROTID ARTERIES: Normal right common carotid artery (CCA). 20% stenosis of the right common carotid bulb. 20% stenosis of the origin of the right internal carotid (ICA) artery without a hemodynamically significant stenosis. Normal visualized cervical portion of the right internal carotid artery. Normal origin of the right external carotid artery (ECA). LEFT CAROTID ARTERIES: Normal left common carotid artery (CCA). Normal left common carotid bulb. Normal origin of the left internal carotid (ICA) artery without a hemodynamically significant stenosis. Normal visualized cervical portion of the left internal carotid artery. Normal origin of the left external carotid artery (ECA). VERTEBRAL ARTERIES: Normal bilateral vertebral artery without a hemodynamically significant stenosis. CT/STROKE CTA Head AND Neck W/Con IMPRESSION: Atherosclerosis without high-grade stenosis. [facility]
--- NOTE | 2025-07-18 02:02 | ECHOD_ITS ---
Reason For Study Reason For Study: TIA/CVA Procedure This was a 2D Doppler, Color Flow transthoracic echocardiogram. Exam performed portable in patient room. Left Ventricle Normal LV size. The left ventricular ejection fraction is 65 %. Stage 1 diastolic dysfunction. No regional wall motion abnormalities noted. Right Ventricle Normal RV size. Normal systolic function. Atria Normal left atrium. Normal right atrium. Mitral Valve There is moderate mitral annular calcification. Echo reverberation noted Adjacent to the mitral annular calcification Of the posterior mitral valve. Mild-Moderate (1-2+) eccentric mitral valve insufficiency. Tricuspid Valve Normal tricuspid valve. Mild (1+) tricuspid valve insufficiency. Pulmonary artery systolic pressure is 28 mmHg. Aortic Valve Trisinus/trileaflet aortic valve. Pulmonic Valve Normal pulmonic valve. Great Vessels Mildly calcified aortic root. The pulmonary artery is normal size. Inferior vena cava collapse with respiration. Pericardium/Pleural No pericardial effusion. MMode/2D Measurements & Calculations LVIDd: 4.8 cm IVSd: 0.79 cm Ao root diam: 3.0 cm LVIDs: 3.2 cm LVPWd: 0.72 cm RVDd: 2.7 cm FS: 33.1 % LAV(MOD-sp2): 58.4 ml LVAd ap4: 23.4 cm2 LVAd ap2: 18.9 cm2 LVLd ap4: 7.0 cm LVLd ap2: 7.5 cm EDV(MOD-sp4): 66.6 ml EDV(MOD-sp2): 42.3 ml EDV(sp4-el): 66.5 ml EDV(sp2-el): 40.5 ml LVAs ap4: 12.0 cm2 LVAs ap2: 10.5 cm2 LVLs ap4: 5.7 cm LVLs ap2: 5.8 cm ESV(MOD-sp4): 21.3 ml ESV(MOD-sp2): 16.5 ml ESV(sp4-el): 21.2 ml ESV(sp2-el): 16.0 ml EF(MOD-sp4): 68.1 % EF(MOD-sp2): 61.0 % EF(sp4-el): 68.1 % SV(MOD-sp4): 45.4 ml SV(MOD-sp2): 25.8 ml SV(sp4-el): 45.3 ml SI(MOD-sp4): 26.8 ml/m2 SI(MOD-sp2): 15.2 ml/m2 LA dimension(2D): 2.8 cm TAPSE: 2.1 cm Time Measurements MV dec time: 0.24 sec Doppler Measurements & Calculations MV E max palomo: 92.4 cm/sec Lat Peak E' Palomo: 8.2 cm/sec Med Peak E' Palomo: 6.8 cm/sec MV A max palomo: 133.3 cm/sec E/E' lat: 11.3 E/E' med: 13.5 MV E/A: 0.69 MV V2 max: 149.5 cm/sec MV P1/2t max palomo: 119.3 cm/sec Ao V2 max: 154.2 cm/sec MV max P.9 mmHg MV P1/2t: 52.5 msec Ao max P.5 mmHg MV V2 mean: 89.7 cm/sec MV dec slope: 665.0 cm/sec2 Ao V2 mean: 101.7 cm/sec MV mean P.6 mmHg Ao mean P.9 mmHg MV V2 VTI: 33.9 cm MVA(P1/2t): 4.2 cm2 Ao V2 VTI: 35.0 cm AV (velocity ratio): 0.59 LV V1 max: 104.5 cm/sec MR max palomo: 599.1 cm/sec PA V2 max: 99.6 cm/sec LV V1 max P.4 mmHg MR max P.6 mmHg PA V2 mean: 67.8 cm/sec LV V1 mean P.1 mmHg MR mean palomo: 457.1 cm/sec LV V1 mean: 67.0 cm/sec MR mean P.7 mmHg LV V1 VTI: 20.7 cm MR VTI: 167.4 cm TR max palomo: 239.5 cm/sec TR max P.4 mmHg ECHO/Echo Complete Interpretation Summary Normal LV size. The left ventricular ejection fraction is 65 %. Stage 1 diastolic dysfunction. Echo reverberation noted Adjacent to the mitral annular calcification Of the po sterior mitral valve. Mild-Moderate (1-2+) eccentric mitral valve insufficiency. Ordering Physician: Lupe Olivares Referring Physician: Carlos Tse Performed By: Elyse Araujo, KINJAL, RVT
[2025-07-18] MEDS: 0.9% Normal Saline (1000mL) 1,000 ML 100 ML IV (02:42)
[2025-07-18 03:56] LABS: Magnesium 2.3 mg/dL (1.5-2.2)
--- OUTSIDE RECORDS SUMMARY | 2025-07-18 05:18 | XMS RPT_ITS | CCD ---
Author Organization [facility] Care Team Providers Care Margin Clerk Name Role Phone Deliciamichael Ana Unavailable [phone] Miko Anne Taz Unavailable SANJANA GARNICA Unavailable Unavailable RUPALI CLINE Unavailable Unavailable PAAVN JAMES Attending Unavailable RUPALI CLINE Primary Care Unavailable Rupali Cline DO Primary Care Provider Fast DO, Mary A Primary Care Provider Fast DO, Mary A Primary Care Provider Fast DO, Mary A Primary Care Provider Rupali Cline DO Primary Care Provider [phone] RUPALI CLINE Primary Care Unavailable LAYLA PALOMINO [...] (3 sources) atorvastatin drug allergy 05-29-20 [facility] Work Phone: (3 sources) pravastatin drug allergy 05-29-20 16 Myalgia [facility] Work Phone: (20 sources) atorvastatin; Translations: [ATORVASTATIN] Drug Allergy 05-29-20 Other: See Comments [facility] (20 sources) Pravastatin; Translations: [PRAVASTATIN] Drug Allergy 05-29-20 Other: See Comments [facility] (20 sources) SEASONAL [Other] Propensity to adverse reactions 09-26-20 [facility] Work Phone: Medications Current Medications Medication Drug [...] mouth daily Vitafusion brand . 0 Active Uc-Ep-Iwlf-Fa-Ca Carb-Vit K (2 sources) Start: 07-18-20 Zl-Co-Hwib-Fa-Ca Carb-Vit K Active 1 EACH PO DAILY July 18, 2019 12:00am Jz-Jr-Yrvc-Fa-Ca Carb-Vit K 1 EACH tablet (1 source) Start: 07-18-20 take 1 tablet by mouth once daily Em-Zw-Liba-Fa-Ca Carb-Vit K 1 EACH tablet Active 1 [...] as needed for migraine headache SUMATRIPTAN SUCCINATE [id number] Rupali Cline DO Comment on above: Take [...] to two tablets by mouth daily CALCIUM [id number] Rupali Darren [facility] emollient combination no.61 (COCONUT OIL [...] LINZESS 145 MCG CAPS as needed LINACLOTIDE [id number] Talita Cheatham [facility] Start: 01-07-2015 End: 03-07-2016 LINZESS 145 MCG CAPS as need ed LINACLOTIDE [id number] Rupali Cline DO multivitamin (3 sources) Start: 03-07-2016 take 1 tablet by mouth once daily MULTI-VITAMIN TABS One tablet by mouth daily MULTIPLE VITAMIN [id number] Rupali A Son DO phenazopyridine hydrochloride 200 [...] One tablet by mouth daily PRAVASTATIN SODIUM [id number] Rupali Banks [facility] Turmeric Root Extract (3 sources) [...] 2024 Ferritin [Mass/Vol] 151.0 ng/mL Normal 14.7-205.1 [facility] Comment on above: Order Comment: Speci men Type: BLOOD SPECIMENOrdering Facility: [facility] Address: [address] [place] [address] Performed By: #### 5 0190-8, 2276-4 ####[facility] LABCLIA [id number] [place] [address] [place] Iron and Iron binding capaci ty panelon 07-10-2025 Iron [Mass/Vol] 65 ug/dL Normal 41-186 [facility] Comment on above: Order Comment: Speci men Type: BLOOD SPECIMENOrdering Facility: [facility] Address: [address] [place] [address] Performed By: #### 5 0190-8, 6-4 ####[facility] LABCLIA [id number] [place] [id number] [place] Iron binding capacity [Mass/Vol] 229 ug/dL Low 232-386 [facility] Comment on above: Order Comment: Speci men Type: BLOOD SPECIMENOrdering Facility: [facility] Address: [address] [place] [address] Performed By: #### 5 0190-8, 2275-4 ####[facility] LABIA [id number] [place] [address] [place] Iron/TIBC [Molar ratio] 28.4 % Normal 15.0-57.0 [facility] Comment on above: Order Comment: Speci men Type: BLOOD SPECIMENOrdering Facility: [facility] Address: [address] [place] [address] Performed By: #### 5 0190-8, 2275-4 ####[facility] LABIA [id number] [place] [id number] [place] 12 Lead EKGon 07-05-2025 12 Lead EKG [facility] [address] [place] [address] 12 Lead EKG 07/05/25 1015 MR#: [id number] Acct: [id number] Name: BALDO GRANT Rep #: [id number] : 1940 85 From: Kenn Chun MD [...] rhythm Normal ECG Confirmed by Kenn Chun (2025), film and video editor ELIO PARRISH ([id number]) on 07/06/2025 9:48:38 AM Referred By: Confirmed By: Kenn Chun 07/06/25947 Date Kenn Chun MD CC: Dr. Carlton Vasquez MD; Dr. Rupali Cline DO Signed Normal [facility] Absolute lymphocyte countOrd ered By: Carlton Vasquez on 07-05-2025 Lymphocytes Auto (Unsp spec) [#/Vol] 1.62 10*3/uL 0.83-4.51 [facility] Absolute neutrophil countOrd ered By: Carlton Vasquez on 07-05-2025 Neutrophils (Bld) [#/Vol] 2.5 10*3/uL 2.0-7.7 [facility] Anion gap in Serum or Plasma Ordered By: Carlton Vasquez on 07-05-2025 Anion gap [Moles/Vol] 10 mmol/L 5-15 [facility] Automated lymphocyte count a s percentage of total leukocytesOrdered By: Carlton Vasquez on 07-05-2025 Lymphocytes/100 WBC Auto (Unsp spec) 34.2 % -41 [facility] BUN/creatinine ratioOrdered By: Carlton Vasquez on 07-05-2025 Urea nitrogen/Creatinine [Mass ratio] 16.2 mg/mg - [facility] Basic Metabolic Profile (BMP )on 07-05-2025 BUN/CRE 16.2 RATIO Normal - [facility] Comment on above: Performed By: #### L 506.1000, L500.4050, L100.0100, L500.4100 #### [facility] [address] [place], [address] Calcium [Mass/Vol] 9.1 mg/dL Normal 7.6-11.0 [facility] Comment on above: Performed By: #### L 506.1000, L500.4050, L100.0100, L500.4100 #### [facility] [address] [place], [address] Chloride [Moles/Vol] 105 mmol/L Normal 98-108 [facility] Comment on above: Performed By: #### L 506.1000, L500.4050, L100.0100, L500.4100 #### [facility] [address] [place], [address] CO2 [Moles/Vol] 23.5 mmol/L Normal 21.0-32.0 [facility] Comment on above: Performed By: #### L 506.1000, L500.4050, L100.0100, L500.4100 #### [facility] [address] [place], [address] Creatinine [Mass/Vol] 0.76 mg/dL Normal 0.70-1.20 [facility] Comment on above: Performed By: #### L 506.1000, L500.4050, L100.0100, L500.4100 #### [facility] [address] [place], [address] ECRCL 48.84 ml/min Low 50-250 [facility] Comment on above: Performed By: #### L 506.1000, L500.4050, L100.0100, L500.4100 #### [facility] [address] [place], [address] GAP 10 Normal 5-15 [facility] Comment on above: Performed By: #### L 506.1000, L500.4050, L100.0100, L500.4100 #### [facility] [address] [place], [address] GFR/1.73 sq M.predicted among non-blacks MDRD (S/P/Bld) [Vol rate/Area] 78 mL/min/{1.73_m2} Normal >60 [facility] Comment on above: Result Comment: mL/m in/1.73m2 CKD-EPI Creatinine Equation (2020) Performed By: #### L 506.1000, L500.4050, L100.0100, L500.4100 #### [facility] [address] [place], [address] Glucose [Mass/Vol] 106 mg/dL High 70-99 [facility] Comment on above: Performed By: #### L 506.1000, L500.4050, L100.0100, L500.4100 #### [facility] [address] [place], [address] Potassium [Moles/Vol] 4.0 mmol/L Normal 3.3-5.1 [facility] Comment on above: Performed By: #### L 506.1000, L500.4050, L100.0100, L500.4100 #### [facility] [address] [place], [address] Sodium [Moles/Vol] 138 mmol/L Normal 133-145 [facility] Comment on above: Performed By: #### L 506.1000, L500.4050, L100.0100, L500.4100 #### [facility] [address] [place], [address] Urea nitrogen [Mass/Vol] 12 mg/dL Normal 4-19 [facility] Comment on above: Performed By: #### L 506.1000, L500.4050, L100.0100, L500.4100 #### [facility] [address] [place], [address] Basophil percentageOrdered B y: Carlton Vasquez on 07-05-2025 Basophils/100 WBC (Bld) 1.5 % High 0-1 [facility] CBC W/Diff, Automatedon Absolute Lymph 1.62 X10 3/uL Normal 0.83-4.51 [facility] Comment on above: Performed By: #### L 506.1000, L500.4050, L100.0100, L500.4100 #### [facility] [address] [place], [address] Absolute Neut 2.5 X10 3/uL Normal 2.0-7.7 [facility] Comment on above: Performed By: #### L 506.1000, L500.4050, L100.0100, L500.4100 #### [facility] [address] [place], [address] Basophils/100 WBC (Bld) 1.5 % High 0-1 [facility] Comment on above: Performed By: #### L 506.1000, L500.4050, L100.0100, L500.4100 #### [facility] [address] [place], [address] Eosinophils/100 WBC (Bld) 0.8 % Normal 0-5 [facility] Comment on above: Performed By: #### L 506.1000, L500.4050, L100.0100, L500.4100 #### [facility] [address] [place], [address] Erythrocyte distribution width (RBC) [Ratio] 12.7 % Normal 11.6-14.6 [facility] Comment on above: Performed By: #### L 506.1000, L500.4050, L100.0100, L500.4100 #### [facility] [address] [place], [address] Hematocrit (Bld) [Volume fraction] 37.6 % Normal 37-47 [facility] Comment on above: Performed By: #### L 506.1000, L500.4050, L100.0100, L500.4100 #### [facility] [address] [place], [address] Hemoglobin (Bld) [Mass/Vol] 12.9 g/dL Normal 12.0-15.0 [facility] Comment on above: Performed By: #### L 506.1000, L500.4050, L100.0100, L500.4100 #### [facility] [address] [place], [address] IG% 0.800 Normal 0.0-0.9 [facility] Comment on above: Result Comment: IG% - Immature Granulocytes (promyelocytes, myelocytes and metamyelocytes) > 1% indicates that a LEFT SHIFT is Present. Performed By: #### L 506.1000, L500.4050, L100.0100, L500.4100 #### [facility] [address] [place], [address] Lymphocytes/100 WBC (Bld) 34.2 % Normal 19-41 [facility] Comment on above: Performed By: #### L 506.1000, L500.4050, L100.0100, L500.4100 #### [facility] [address] [place], [address] MCH (RBC) [Entitic mass] 32.4 pg High 27.0-32.0 [facility] Comment on above: Performed By: #### L 506.1000, L500.4050, L100.0100, L500.4100 #### [facility] [address] [place], [address] MCHC (RBC) [Mass/Vol] 34.3 g/dL Normal 32-36 [facility] Comment on above: Performed By: #### L 506.1000, L500.4050, L100.0100, L500.4100 #### [facility] [address] [place], [address] MCV (RBC) [Entitic vol] 94.5 fL Normal 81-99 [facility] Comment on above: Performed By: #### L 506.1000, L500.4050, L100.0100, L500.4100 #### [facility] [address] [place], [address] Monocytes/100 WBC (Bld) 9.9 % Normal 0-10 [facility] Comment on above: Performed By: #### L 506.1000, L500.4050, L100.0100, L500.4100 #### [facility] [address] [place], [address] Neutrophils/100 WBC (Bld) 52.8 % Normal 47-70 [facility] Comment on above: Performed By: #### L 506.1000, L500.4050, L100.0100, L500.4100 #### [facility] [address] [place], [address] Nucleated RBC (Bld) [#/Vol] 0 10*3/uL Normal 0-5 [facility] Comment on above: Performed By: #### L 506.1000, L500.4050, L100.0100, L500.4100 #### [facility] [address] [place], [address] Platelet mean volume (Bld) [Entitic vol] 9.8 fL Normal 6.2-12.0 [facility] Comment on above: Performed By: #### L 506.1000, L500.4050, L100.0100, L500.4100 #### [facility] [address] [place], [address] Platelets (Bld) [#/Vol] 253 10*3/uL Normal 150-450 [facility] Comment on above: Performed By: #### L 506.1000, L500.4050, L100.0100, L500.4100 #### [facility] [address] [place], [address] RBC (Bld) [#/Vol] 3.98 10*6/uL Low 4.2-5.4 [facility] Comment on above: Performed By: #### L 506.1000, L500.4050, L100.0100, L500.4100 #### [facility] [address] [place], [address] RDW SD 44.2 fl High 35.1-43.9 [facility] Comment on above: Performed By: #### L 506.1000, L500.4050, L100.0100, L500.4100 #### [facility] [address] [place] [place], [address] WBC (Bld) [#/Vol] 4.7 10*3/uL Normal 4.4-11.0 [facility] Comment on above: Performed By: #### L 506.1000, L500.4050, L100.0100, L500.4100 #### [facility] [address] [place], [address] Carbon dioxide, total [Moles /volume] in Central venous bloodOrdered By: Carlton Vasquez on 07-05-2025 CO2 [Moles/Vol] 23.5 mmol/L 21.0-32.0 [facility] Chest 1 View (Portable)on Chest 1 View (Portable) [facility] Imaging Services [address] [place] [address] Chest 1 View (Portable) MR#: [id number] Acct: [id number] Name: BALDO GRANT Rep #: [id number] : 1940 F 85 From: Kenn Trujillo MD PCP: Dr. Rupali Cline, DO Status: [facility] ER Study: Chest 1 View (Portable) Date of Exam: 07/05/25 Exam# [id number] Ordering Dr: Carlton Vasquez MD PROCEDURE: CHEST [...] Negative for acute cardiopulmonary disease. Reading Location: [id number] CC: Dr. Carlton Vasquez MD; Dr. Rupali Cline DO Lead Ramp Agent: Signed Normal [facility] Chloride assayOrdered By: Mallory Vasquez on 07-05-2025 Chloride [Moles/Vol] 105 mmol/L 98-108 [facility] D-Dimer Quantitative (DVT/PE )on 07-05-2025 D-DIMER QUANT 0.72 FEU/ug/m Invalid Interpretation Code 0.27-0.49 [facility] Comment on above: Result Comment: D-Di shireen ELEVATED (>0.49): Additional studies and clinical assessments are indicated to conclude diagnosis of: Deep Vein Thrombosis (DVT) or Pulmonary Embolism (PE) CRITICAL VALUE CALLED TO WILLY LIRIANO 07/05/25 1026 Jaciel Olivares. RESULTS READ BACK BY SAME. Performed By: #### L 300.8000 #### [facility] [address] [facility] [place], [address] Emergency Department Summary on 07-05-2025 Emergency Department Summary [facility] Medical Records Department [address] [place] [address] Emergency Department Summary 07/05/25 MR#: [id number] Acct: [id number] Name: BALDO GRANT Rep #: [id number] : 1940 85 From: Carlton Vasquez MD [...] 60s. She was awake at that time. [facility] Medical History Osteopenia Hyperlipidemia Migraines Back problem Arthritis Seasonal allergies Hypertension Home Medications ???Medication ???Instructions ???Recorded ???Last Taken ???Type biotin 5 mg tablet 3 mg PO BID 07/18/19 Unknown Histo ry calcium 600 mg (as 1 ea PO DAILY supplement 07/18/19 Unknown History carbonate)-vitamin D3 10 mcg (400 unit) tablet ezetimibe 10 mg tablet 10 mg PO DAILY cholesterol 9 Unknown History jhxszonx-djd-cbog-FA-Ca carb-vit K 1 ea PO DAILY vitamin [...] (Reviewed 09/05/21 @ 15:20 by Linda Dougherty TRANSVERSE ABDOMINAL MUSCLE NURSE, TRANSVERSE ABDOMINAL MUSCLE NURSE-C) Father Myocardial infarction Brother Pancreatic cancer Sister [...] Physical Exam (more content not included)... Normal [facility] Eosinophil percentageOrdered By: Carlton Vasquez on 07-05-2025 Eosinophils/100 WBC (Bld) 0.8 % 0-5 [facility] Erythrocyte distribution wid th ratioOrdered By: Carlton Vasquez on 07-05-2025 Erythrocyte distribution width (RBC) [Ratio] 12.7 % 11.6-14.6 [facility] Erythrocyte distribution wid th standard deviationOrdered By: Carlton Vasquez on 07-05-2025 Erythrocyte distribution width (RBC) [Ratio] 44.2 fl High 35.1-43.9 [facility] Glomerular filtration rate ( GFR) estimation/1.73 sq m using serum, plasma, or whole bOrdered By: Carlton Vasquez on 07-05-2025 GFR/1.73 sq M.predicted among non-blacks MDRD (S/P/Bld) [Vol rate/Area] 78 mL/min/{1.73_m2} >60 [facility] Comment on above: mL/min/1.73m2 CKD-EP I Creatinine Equation (2020) Hematocrit Auto (Bld) [Volum e fraction]Ordered By: Carlton Vasquez on 07-05-2025 Hematocrit (Bld) [Volume fraction] 37.6 % 37-47 [facility] Hemoglobin measurementOrdere d By: Carlton Vasquez on 07-05-2025 Hemoglobin (Bld) [Mass/Vol] 12.9 g/dL 12.0-15.0 [facility] Immature granulocytes/100 WB C Auto (Bld)Ordered By: Carlton Vasquez on 07-05-2025 Immature granulocytes/100 WBC (Bld) 0.800 % 0.0-0.9 [facility] Comment on above: IG% - Immature Granu locytes (promyelocytes, myelocytes and metamyelocytes) > 1% indicates that a LEFT SHIFT is Present. L501.4021on 07-05-2025 Trop T High Sen 9 ng/L Normal <=14 [facility] Comment on above: Performed By: #### L 506.1000, L500.4050, L100.0100, L500.4100 #### [facility] [address] [place], [place] [address]. [place], [place], [address] MCV (mean corpuscular volume ) determinationOrdered By: Carlton Vasquez on 07-05-2025 MCV (RBC) [Entitic vol] 94.5 fL 81-99 [facility] Mean corpuscular hemoglobin (MCH) determinationOrdered By: Carlton Vasquez on 07-05-2025 MCH (RBC) [Entitic mass] 32.4 pg High 27.0-32.0 [facility] Mean corpuscular hemoglobin concentration (MCHC) determinationOrdered By: Carlton Vasquez on 07-05-2025 MCHC (RBC) [Mass/Vol] 34.3 g/dL 32-36 [facility] Mean platelet volume determi nationOrdered By: Carlton Vasquez on 07-05-2025 Platelet mean volume (Bld) [Entitic vol] 9.8 fL 6.2-12.0 [facility] Monocyte percentageOrdered B y: Carlton Vasquez on 07-05-2025 Monocytes/100 WBC (Bld) 9.9 % 0-10 [facility] Neutrophil percentageOrdered By: Carlton Vasquez on 07-05-2025 Neutrophils/100 WBC (Bld) 52.8 % 47-70 [facility] Nucleated red blood cell per centageOrdered By: Carlton Vasquez on 07-05-2025 Nucleated RBC/100 WBC (Bld) [Ratio] 0 % 0-5 [facility] Platelet countOrdered By: Mallory Vasquez on 07-05-2025 Platelets (Bld) [#/Vol] 253 10*3/uL 150-450 [facility] Potassium measurement (mass/ volume)Ordered By: Carlton Vasquez on 07-05-2025 Potassium (Unsp spec) [Mass/Vol] 4.0 mmol/L 3.3-5.1 [facility] RBC Auto (Bld) [#/Vol]Ordere d By: Carlton Vasquez on 07-05-2025 RBC (Bld) [#/Vol] 3.98 10*6/uL Low 4.2-5.4 [facility] Serum creatinine measurement (mass/volume)Ordered By: Carlton Vasquez on 07-05-2025 Creatinine [Mass/Vol] 0.76 mg/dL 0.70-1.20 [facility] Serum glucose measurement (m ass/volume)Ordered By: Carlton Vasquez on 07-05-2025 Glucose [Mass/Vol] 106 mg/dL High 70-99 [facility] Serum or plasma calcium jairo urement (mass/volume)Ordered By: Carlton Vasquez on 07-05-2025 Calcium [Mass/Vol] 9.1 mg/dL 7.6-11.0 [facility] Serum or plasma urea nitroge n measurement (mass/volume)Ordered By: Carlton Vasquez on 07-05-2025 Urea nitrogen [Mass/Vol] 12 mg/dL 4-19 [facility] Sodium levelOrdered By: George Vasquez on 07-05-2025 Sodium [Moles/Vol] 138 mmol/L 133-145 [facility] Troponin T HS 2 HRon 025 Trop T High Sen 9 ng/L Normal <=14 [facility] Comment on above: Performed By: #### L 499.0042 #### [facility] [address] [place], [place], [address] Troponin T HS 4 HRon 025 Trop T High Sen Normal <=14 [facility] Comment on above: Result Comment: DEP FROM ED Performed By: #### L 499.0043 #### [facility] [address] [place], [place], [address] Troponin T.cardiac [Mass/vol ume] in Serum or Plasma by High sensitivity methodOrdered By: Carlton Vasquez on 07-05-2025 Troponin T.cardiac High sensitivity method [Mass/Vol] 9 ng/L <14 [facility] Troponin T.cardiac High sensitivity method [Mass/Vol] 9 ng/L <14 [facility] White blood cell (WBC) count Ordered By: Carlton Vasquez on 07-05-2025 WBC (Bld) [#/Vol] 4.7 10*3/uL 4.4-11.0 [facility] CNPMichaela 06-12-2025 CNPN Telephone ([employer]) -------- BALDO GRANT ([id number]) 1940 F Date Time Provider Department 06/12/25 [...] Encounter Status:Closed by [place] BROWN on 06/17/25 [facility] Demetrius 05-18-2025 BRITTNEY Telephone (SLEWST) -------- BALDO GRANT ([id number]) 1940 F Date Time Provider Department 05/18/25 INDIAAN BROWN During your visit today, we recorded the following information about you: [place] Brown APRN.BRITTNEY 05/18/2025 10:33 AM Signed Please print appeal letter so I can sign for [facility] APRN.Jacque Salcedo LPN 05/18/2025 4:25 PM Signed Appeal letter faxed to [employer] Appeals Team. Jacque Taylor LPN Allergies [...] Encounter Status:Closed by JACQUE [place] on 05/18/25 [facility] Demetrius 02-09-2025 CNPN Telephone (MN[employer]) -------- BALDO GRANT ([id number]) 1940 F Date Time Provider Department 02/09/25 [...] questions relating to this submission, please contact [facility] at [phone] Emely Ferro RN 02/11/2025 3:46 PM Signed [employer] approved 10/29/2024-02/10/2026 Patient notified Allergies As of Date: 02/09/2025 Noted Allergy Reaction ATORVASTATIN 05/29/2016 14 - Other: See Comments PRAVASTATIN 05/29/2016 14 - Other: See Comments Date Reviewed: 11/17/2024 Reviewed by: Mack Mills LPN - Fully Assessed Reason for Visit: Insurance Authorization [[id number]] [employer] [Other] Prescriptions as of 02/11/2025 - [...] Status:Closed by ENMANUEL PHIPPS on 02/09/25 Normal [facility] DARBY SCREENING W TOMOon 02-03 DARBY SCREENING W MURTAZA * * *Final Report* * * DATE OF EXAM: Feb 03 2025 11:48AM WRW [id number] - DARBY SCREENING W MURTAZA / PROCEDURE REASON: multiple diagnoses * * * * Physician Interpretation * * * * RESULT: [place] [address] [place] [address] #[id number] - DARBY SCREENING W MURTAZA HISTORY: 84 [...] Lisa Granados M.D. Electronically signed on: 02/04/2025 Lead Ramp Agent: JAZZ Transcribe Date/Time: Feb 03 2025 11:16A Dictated by: LISA GRANADOS MD This examination was interpreted and the report reviewed and electronically signed by: LISA GRANADOS MD on Feb 04 2025 1:13PM EST [id number] Normal [facility] CNOVon 11-17-2024 CNOV Office Visit (SLEWST ) -------- BALDO GRANT ([id number]) 1940 F Date Time Provider Department 11/17/24 11:30 AM [place] BROWN During your visit today, we recorded the following information about you: Pulse Blood pressure Weight 89/minute 126/78 73.3 kg Indiana Brown APRN.CNP 11/17/2024 12:15 PM Signed [facility] Follow up/ Established patient [...] for snoring and witnessed apneas Indiana Brown APRN.FIBERGLASS ROLLER Here for follow up for RLS New [...] due to drowsy drivin 06/09/2024 09/16/2024 11/16/2024 [place] Sleepiness Scale Score 1 (No clinically significant [...] General appeara (more content not included)... Normal [facility] Bacteria Ur Culton 4 Bacteria identified Cx Nom (U) ORGANISM ID: 1 10,000 -<50,000 CFU/ml Normal urogenital bobo Normal [facility] Comment on above: Performed By: #### 6 30-4 ####[facility] [id number] [address] CNOVon 09-17-2024 CNOV Office Visit (OBGYWM ) -------- BALDO GRANT ([id number]) 1940 F Date Time Provider Department 09/17/24 [...] Date Reviewed: 09/17/2024 Reviewed by: Indiana Brown APRN.FIBERGLASS ROLLER - Fully Assessed Primary Visit Diagnosis:Urinary urgency [R39.15] Other Visit Diagnosis:Urinary frequency [R35.0] Order(s):URINE CULTURE [SQURCUL] Order #: [id number]. #:[id number] Prescriptions as of 09/17/2024 - gabapentin (NEURONTIN) [...] Status:Closed by LAYLA CHERRY on 09/17/24 Normal [facility] CNOV Office Visit (SLEWST ) -------- BALDO GRANT ([id number]) 1940 F Date Time Provider Department 09/17/24 11:00 AM [place] BROWN During your visit today, we recorded the following information about you: Pulse Respiration Blood pressure Weight 86/minute 16/minute 159/89 74.7 kg [place] Brown APRN.CNP 09/17/2024 2:43 PM Signed [facility] Follow up/ Established patient [...] daughter is Conchita Vasquez who works in [employer]--and has told her she likely has RAMIRO. [...] due to drowsy drivin 03/13/2024 06/09/2024 09/16/2024 [place] Sleepiness Scale Score 3 (No clinically significant [...] alert and (more content not included)... Normal [facility] BALDO GRANT ([id number]) 1940 F Date Time Provider Department 09/17/24 [...] LAYLA CHERRY Pharmacy Information Pharmacy Address Telephone [facility]/pharmacy #[id number] [place] [id number] Leigha Casarez RN Allergies As of Date: 09/17/2024 Noted Allergy Reaction ATORVASTATIN 05/29/2016 14 - Other: See Comments PRAVASTATIN 05/29/2016 14 - Other: See Comments Date Reviewed: 09/17/2024 Reviewed by: Indiana Brown APRN.FIBERGLASS ROLLER - Fully Assessed Reason for Visit: Results [...] Encounter Status:Closed by LAYLA CHERRY on 09/17/24 [facility] DONAVON Telephone (SARAH) -------- BALDO GRANT ([id number]) 1940 F Date Time Provider Department 09/17/24 [place] BR[place] During your visit today, we recorded the following information about you: Indiana Brown APRN.BRITTNEY 09/17/2024 4:30 PM Signed Is there any update on her Nidra appeal? Thanks, Indiana Brown APRN.Analilia Stanton OCCA 09/18/2024 1:38 PM Signed Confidential email sent to [employer] sales representative livestock to check on status of appeal. Analilia Escobarella SALVADORDarren Brynn MurilloianSALVADORDarren 09/22/2024 7:24 AM Signed Email response has not been received as of this time. Analilia Shawnella MARIBEL LarryDevonMackNORMA 09/24/2024 2:49 PM Signed No email response received regarding Nidra device. Mack Mills LPN September 24, 2024 2:49 PM Brynn MurilloianSALVADORDarren 10/02/2024 11:34 AM Signed Additional confidential email sent to sales representative livestock to inquire further as office has not [...] message below reviewed with verbalized understanding. JOEY Milse Gillian MARIBEL 11/03/2024 11:35 AM Signed Appeal [...] Status:Closed by MACK MILLS on 09/24/24 [facility] BALDO GRANT ([id number]) 1940 F Date Time Provider Department 09/17/24 [...] has an appointment at 11am at the [facility] with neuro and would like [...] Status:Closed by LEIGHA CASAREZ on 09/17/24 Normal [facility] CBC W/Diff, Automatedon 10-2 Absolute Lymph 1.56 X10 3/uL Normal 0.83-4.51 [facility] Comment on above: Performed By: #### L 506.1000, L500.4050, L100.0100, L500.4100 #### [facility] [address] [place], [address] Absolute Neut 2.2 X10 3/uL Normal 2.0-7.7 [facility] Comment on above: Performed By: #### L 506.1000, L500.4050, L100.0100, L500.4100 #### [facility] [address] [place], [address] Basophils/100 WBC (Bld) 1.8 % High 0-1 [facility] Comment on above: Performed By: #### L 506.1000, L500.4050, L100.0100, L500.4100 #### [facility] [address] [place], [address] Eosinophils/100 WBC (Bld) 2.0 % Normal 0-5 [facility] Comment on above: Performed By: #### L 506.1000, L500.4050, L100.0100, L500.4100 #### [facility] [address] [place], [address] Erythrocyte distribution width (RBC) [Ratio] 12.6 % Normal 11.6-14.6 [facility] Comment on above: Performed By: #### L 506.1000, L500.4050, L100.0100, L500.4100 #### [facility] [address] [place], [address] Hematocrit (Bld) [Volume fraction] 37.6 % Normal 37-47 [facility] Comment on above: Performed By: #### L 506.1000, L500.4050, L100.0100, L500.4100 #### [facility] [address] [place], [address] Hemoglobin (Bld) [Mass/Vol] 12.6 g/dL Normal 12.0-15.0 [facility] Comment on above: Performed By: #### L 506.1000, L500.4050, L100.0100, L500.4100 #### [facility] [address] [place], [address] IG% 0.400 Normal 0.0-0.9 [facility] Comment on above: Result Comment: IG% - Immature Granulocytes (promyelocytes, myelocytes and metamyelocytes) > 1% indicates that a LEFT SHIFT is Present. Performed By: #### L 506.1000, L500.4050, L100.0100, L500.4100 #### [facility] [address] [place], [address] Lymphocytes/100 WBC (Bld) 34.6 % Normal 19-41 [facility] Comment on above: Performed By: #### L 506.1000, L500.4050, L100.0100, L500.4100 #### [facility] [address] [place], [address] MCH (RBC) [Entitic mass] 32.4 pg High 27.0-32.0 [facility] Comment on above: Performed By: #### L 506.1000, L500.4050, L100.0100, L500.4100 #### [facility] [address] [place], [address] MCHC (RBC) [Mass/Vol] 33.5 g/dL Normal 32-36 [facility] Comment on above: Performed By: #### L 506.1000, L500.4050, L100.0100, L500.4100 #### [facility] [address] [place], [address] MCV (RBC) [Entitic vol] 96.7 fL Normal 81-99 [facility] Comment on above: Performed By: #### L 506.1000, L500.4050, L100.0100, L500.4100 #### [facility] [address] [place], [address] Monocytes/100 WBC (Bld) 11.5 % High 0-10 [facility] Comment on above: Performed By: #### L 506.1000, L500.4050, L100.0100, L500.4100 #### [facility] [address] [place], [address] Neutrophils/100 WBC (Bld) 49.7 % Normal 47-70 [facility] Comment on above: Performed By: #### L 506.1000, L500.4050, L100.0100, L500.4100 #### [facility] [address] [place], [address] Nucleated RBC (Bld) [#/Vol] 0 10*3/uL Normal 0-5 [facility] Comment on above: Performed By: #### L 506.1000, L500.4050, L100.0100, L500.4100 #### [facility] [address] [place], [address] Platelet mean volume (Bld) [Entitic vol] 10.3 fL Normal 6.2-12.0 [facility] Comment on above: Performed By: #### L 506.1000, L500.4050, L100.0100, L500.4100 #### [facility] [address] [place], [address] Platelets (Bld) [#/Vol] 248 10*3/uL Normal 150-450 [facility] Comment on above: Performed By: #### L 506.1000, L500.4050, L100.0100, L500.4100 #### [facility] [address] [place], [address] RBC (Bld) [#/Vol] 3.89 10*6/uL Low 4.2-5.4 [facility] Comment on above: Performed By: #### L 506.1000, L500.4050, L100.0100, L500.4100 #### [facility] [address] [place], [address] RDW SD 44.9 fl High 35.1-43.9 [facility] Comment on above: Performed By: #### L 506.1000, L500.4050, L100.0100, L500.4100 #### [facility] [address] [place], [address] WBC (Bld) [#/Vol] 4.5 10*3/uL Normal 4.4-11.0 [facility] Comment on above: Performed By: #### L 506.1000, L500.4050, L100.0100, L500.4100 #### [facility] [address] [place], [address] Comprehensive Metabolic Prof [facility] 08-21-2024 Albumin [Mass/Vol] 3.6 g/dL Normal 3.2-5.0 [facility] Comment on above: Performed By: #### L 506.1000, L500.4050, L100.0100, L500.4100 #### [facility] [address] [place], [address] Albumin/Globulin [Mass ratio] 1.1 {ratio} Normal 0.9-2.4 [facility] Comment on above: Performed By: #### L 506.1000, L500.4050, L100.0100, L500.4100 #### [facility] [address] [place], [address] ALK P 67 U/L Normal 45-117 [facility] Comment on above: Performed By: #### L 506.1000, L500.4050, L100.0100, L500.4100 #### [facility] [address] [place], [address] ALT [Catalytic activity/Vol] 30 U/L Normal 13-56 [facility] Comment on above: Performed By: #### L 506.1000, L500.4050, L100.0100, L500.4100 #### [facility] [address] [place], [address] AST [Catalytic activity/Vol] 15 U/L Normal 15-37 [facility] Comment on above: Performed By: #### L 506.1000, L500.4050, L100.0100, L500.4100 #### [facility] [address] [place], [address] Bilirubin [Mass/Vol] 0.30 mg/dL Normal 0.20-1.00 [facility] Comment on above: Result Comment: For patients on eltrombopag therapy, use of Dimension [place] TBIL is not recommended. Performed By: #### L 506.1000, L500.4050, L100.0100, L500.4100 #### [facility] [address] [place], [address] BUN/CRE 22.8 RATIO High 10-20 [facility] Comment on above: Performed By: #### L 506.1000, L500.4050, L100.0100, L500.4100 #### [facility] [address] [place], [address] CA,Total 9.4 mg/dL Normal 8.5-10.1 [facility] Comment on above: Performed By: #### L 506.1000, L500.4050, L100.0100, L500.4100 #### [facility] [address] [place], [address] Chloride [Moles/Vol] 109 mmol/L High 98-107 [facility] Comment on above: Performed By: #### L 506.1000, L500.4050, L100.0100, L500.4100 #### [facility] [address] [place], [address] CO2 [Moles/Vol] 27.0 mmol/L Normal 21.0-32.0 [facility] Comment on above: Performed By: #### L 506.1000, L500.4050, L100.0100, L500.4100 #### [facility] [address] [place], [address] Creatinine [Mass/Vol] 0.79 mg/dL Normal 0.55-1.02 [facility] Comment on above: Result Comment: The validity of the calculated GFR GFRAA in patients over 70 years has not been determined. Clinical correlation is essential. Performed By: #### L 506.1000, L500.4050, L100.0100, L500.4100 #### [facility] [address] [place], [address] EST GFR - AA 90 mL/min Normal >60 [facility] Comment on above: Result Comment: Afri can Ecuadorean GFR Calc Performed By: #### L 506.1000, L500.4050, L100.0100, L500.4100 #### [facility] [address] [place], [address] GAP 5 Normal 5-15 [facility] Comment on above: Performed By: #### L 506.1000, L500.4050, L100.0100, L500.4100 #### [facility] [address] [place], [address] GFR/1.73 sq M.predicted among non-blacks MDRD (S/P/Bld) [Vol rate/Area] 74 mL/min/{1.73_m2} Normal >60 [facility] Comment on above: Result Comment: Non- GFR Calc Performed By: #### L 506.1000, L500.4050, L100.0100, L500.4100 #### [facility] [address] [place], [address] Globulin (S) [Mass/Vol] 3.4 g/dL Normal 2.2-4.2 [facility] Comment on above: Performed By: #### L 506.1000, L500.4050, L100.0100, L500.4100 #### [facility] [address] [place], [address] Glucose [Mass/Vol] 95 mg/dL Normal 74-106 [facility] Comment on above: Performed By: #### L 506.1000, L500.4050, L100.0100, L500.4100 #### [facility] [address] [place], [address] Potassium [Moles/Vol] 4.7 mmol/L Normal 3.5-5.1 [facility] Comment on above: Performed By: #### L 506.1000, L500.4050, L100.0100, L500.4100 #### [facility] [address] [place], [address] Sodium [Moles/Vol] 140 mmol/L Normal 136-145 [facility] Comment on above: Performed By: #### L 506.1000, L500.4050, L100.0100, L500.4100 #### [facility] [address] [place], [address] T PROT 7.0 g/dL Normal 6.4-8.2 [facility] Comment on above: Performed By: #### L 506.1000, L500.4050, L100.0100, L500.4100 #### [facility] [address] [place], [address] Urea nitrogen [Mass/Vol] 18 mg/dL Normal 7-18 [facility] Comment on above: Performed By: #### L 506.1000, L500.4050, L100.0100, L500.4100 #### [facility] [address] [place], [address] Lipid Profileon 08-21-2024 Cholesterol [Mass/Vol] 276 mg/dL High 200 [facility] Comment on above: Result Comment: <200 mg/dL Desirable 200-240 mg/dL Borderline >240 mg/dL High Risk Performed By: #### L 506.1000, L500.4050, L100.0100, L500.4100 #### [facility] [address] [place], [address] Cholesterol in HDL [Mass/Vol] 54 mg/dL Normal [facility] Comment on above: Result Comment: The drugs N-Acetylcysteine and Metamizole may falsely depress this assay. Reference Range HDL <40 mg/dL Low HDL Cholesterol HDL >or= 60 mg/dL High HDL Cholesterol Performed By: #### L 506.1000, L500.4050, L100.0100, L500.4100 #### [facility] [address] [place], [address] Cholesterol in LDL [Mass/Vol] 182 mg/dL High 0-130 [facility] Comment on above: Performed By: #### L 506.1000, L500.4050, L100.0100, L500.4100 #### [facility] [address] [place], [address] Cholesterol in VLDL [Mass/Vol] 40 mg/dL Normal 5-40 [facility] Comment on above: Performed By: #### L 506.1000, L500.4050, L100.0100, L500.4100 #### [facility] [address] [place], [id number] Triglyceride [Mass/Vol] 200 mg/dL High [facility] Comment on above: Result Comment: The drugs N-Acetylcysteine and Metamizole may falsely depress this assay. Serum Triglycerides Reference Interval Normal <150 mg/dL Borderline high 150 - 199 mg/dL High 200 - 499 mg/dL Very High > or = 500 mg/dL Performed By: #### L 506.1000, L500.4050, L100.0100, L500.4100 #### [facility] [address] [place], [address] Vitamin D,25 Hydroxyon 08-21 Vitamin D 25-OH 23.0 ng/mL Normal [facility] Comment on above: Result Comment: Ramandeep min D 25(OH) Status Range Deficiency <20 ng/mL (50nmol/L) Insufficiency 20 - 30 ng/mL (50 - 75 nmol/L) Sufficiency 30 - 100 ng/mL (75 - 250 nmol/L) Toxicity >100 ng/mL (>250 nmol/L) Performed By: #### L 506.1000, L500.4050, L100.0100, L500.4100 #### [facility] [address] 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 Last Pap: 02/08/2011 normal HPV: 09/29/2005 negative History of abnormal pap: No Last mammogram: 2023 normal OB History T0 L4 SAB0 IAB0 Ectopic0 Multiple0 Live Births0 Corporate Quality Manager History LMP: 10/29/1996, Postmenopausal Age at Menarche: Age at First : Age at Menopause: Corporate Quality Manager History Comments: Sexual Activity: Yes; Male [...] discussed with the Patient or Patient's Authorized Estate Tax Examiner. As applicable, any other physician, advance practice provider, medical student, or other health professional student that will be observing or involved in the sensitive examination for educational or training purposes was discussed with the Patient or Authorized Estate Tax Examiner. The Patient or Authorized Estate Tax Examiner has agreed to proceed with the sensitive [...] external genitalia normal, normal Bartholin's glands, urethra, Chatsworth's glands, no vulvar lesions, physiologic discharge present, [...] for screening mammogram for breast cancer [Z12.31] Order(s):[facility] SCREENING W MURTAZA [[id number]] Order #: [id number] FUTURE Prescriptions as of 07/22/2024 - biotin [...] THERAPEUTIC MULTIVIT (more content not included)... Normal [facility] FERRITINon 03-17-2024 Ferritin [Mass/Vol] 128.0 ng/mL 14.7 - 205.1 ng/mL [facility] Ferritin [Mass/Vol]on 2023 Interpretation and review of laboratory results Normal [facility] Iron and Iron binding capaci ty panelon 03-17-2024 Interpretation and review of laboratory results Normal [facility] Iron [Mass/Vol] 135 ug/dL 41 - 186 ug/dL [facility] Iron binding capacity [Mass/Vol] 253 ug/dL 232 - 386 ug/dL [facility] Iron/TIBC [Molar ratio] 53.4 % 15.0 - 57.0 % [facility] Absolute lymphocyte countOrd ered By: Rupali Cline on 08-15-2023 Lymphocytes Auto (Unsp spec) [#/Vol] 1.68 10*3/uL 0.83-4.51 [facility] Basophil percentageOrdered B y: Rupali Cline on 08-15-2023 Basophils/100 WBC (Bld) 1.6 % 0-1 [facility] Bilirubin [Mass/Vol] 0.30 mg/dL 0.20-1.00 [facility] Comment on above: For patients on eltr ombopag therapy, use of Dimension [place] TBIL is not recommended. Chloride [Moles/Vol] 110 mmol/L 98-107 [facility] Cholesterol [Mass/Vol] 238 mg/dL <200 [facility] Comment on above: <200 mg/dL Desirable 200-240 mg/dL Borderline >240 mg/dL High Risk Eosinophils/100 WBC (Bld) 2.9 % 0-5 [facility] Glucose [Mass/Vol] 99 mg/dL 74-106 [facility] Neutrophils (Bld) [#/Vol] 2.1 10*3/uL 2.0-7.7 [facility] Neutrophils/100 WBC (Bld) 47.2 % 47-70 [facility] Potassium [Moles/Vol] 4.6 mmol/L 3.5-5.1 [facility] Protein [Mass/Vol] 7.3 g/dL 6.4-8.2 [facility] Sodium [Moles/Vol] 141 mmol/L 136-145 [facility] Triglyceride [Mass/Vol] 172 mg/dL <199 [facility] Comment on above: The drugs N-Acetylcy steine and Metamizole may falsely depress this assay.Serum Triglycerides Reference Interval Normal <150 mg/dL Borderline high 150 - 199 mg/dL High 200 - 499 mg/dL Very High > or = 500 mg/dL WBC (Bld) [#/Vol] 4.5 10*3/uL 4.4-11.0 [facility] Blood erythrocytes count (nu mber/volume)Ordered By: Rupali Cline on 08-15-2023 RBC (Bld) [#/Vol] 4.01 10*6/uL 4.2-5.4 [facility] Blood hemoglobin measurement (mass/volume)Ordered By: Rupali Cline on 08-15-2023 Hemoglobin (Bld) [Mass/Vol] 12.7 g/dL 12.0-15.0 [facility] Blood lymphocytes/100 leukoc ytesOrdered By: Rupali Cline on 08-15-2023 Lymphocytes/100 WBC (Bld) 37.6 % 19-41 [facility] Blood monocytes/100 leukocyt esOrdered By: Rupali Cline on 08-15-2023 Monocytes/100 WBC (Bld) 10.5 % 0-10 [facility] Blood platelet mean volumeOr dered By: Rupali Cline on 08-15-2023 Platelet mean volume (Bld) [Entitic vol] 10.5 fL 6.2-12.0 [facility] Determination of erythrocyte mean corpuscular volume (MCV)Ordered By: Rupali Cline on 08-15-2023 MCV (RBC) [Entitic vol] 97.5 fL 81-99 [facility] Hematocrit Auto (Bld) [Volum e fraction]Ordered By: Rupali Cline on 08-15-2023 Hematocrit (Bld) [Volume fraction] 39.1 % 37-47 [facility] - Chemistry and C hemistry - challengeOrdered By: Rupali Cline on 08-15-2023 ALP [Catalytic activity/Vol] 66 U/L 45-117 [facility] ALT [Catalytic activity/Vol] 29 U/L 13-56 [facility] CO2 [Moles/Vol] 26.0 mmol/L 21.0-32.0 [facility] Globulin (S) [Mass/Vol] 3.7 g/dL 2.2-4.2 [facility] Urea nitrogen/Creatinine [Mass ratio] 20.2 mg/mg 10-20 [facility] - Hematology and Cell countsOrdered By: Rupali Cline on 08-15-2023 Erythrocyte distribution width (RBC) [Entitic vol] 46.4 fL 35.1-43.9 [facility] Erythrocyte distribution width (RBC) [Ratio] 12.9 % 11.6-14.6 [facility] Immature granulocytes/100 WBC (Bld) 0.200 % 0.0-0.9 [facility] Comment on above: IG% - Immature Granu locytes (promyelocytes, myelocytes and metamyelocytes) > 1% indicates that a LEFT SHIFT is Present. MCH (RBC) [Entitic mass] 31.7 pg 27.0-32.0 [facility] Nucleated RBC/100 WBC (Bld) [Ratio] 0 % 0-5 [facility] MCHC Auto (RBC) [Mass/Vol]Or dered By: Rupali Cline on 08-15-2023 MCHC (RBC) [Mass/Vol] 32.5 g/dL 32-36 [facility] No Panel InformationOrdered By: Rupali Cline on 08-15-2023 Estimated GFR (MDRD) Amer 105 mL/min >60 [facility] Comment on above: GFR Calc Estimated GFR (MDRD) Non-Af Amer 87 mL/min >60 [facility] Comment on above: Non- GFR Calc Thyroid Stimulating Hormone (TSH) 1.19 uIU/mL 0.358-3.74 [facility] Vitamin D 25-Hydroxy 31.2 ng/mL [facility] Comment on above: Vitamin D 25(OH) Sta tus Range Deficiency <20 ng/mL (50nmol/L) Insufficiency 20 - 30 ng/mL (50 - 75 nmol/L) Sufficiency 30 - 100 ng/mL (75 - 250 nmol/L) Toxicity >100 ng/mL (>250 nmol/L) Platelets bldOrdered By: Malaika Cline on 08-15-2023 Platelets (Bld) [#/Vol] 242 10*3/uL 150-450 [facility] Serum or plasma albumin jairo urement (mass/volume)Ordered By: Rupali Cline on 08-15-2023 Albumin [Mass/Vol] 3.6 g/dL 3.2-5.0 [facility] Serum or plasma albumin/glob ulin mass ratioOrdered By: Rupali Cline on 08-15-2023 Albumin/Globulin [Mass ratio] 1.0 {ratio} 0.9-2.4 [facility] Serum or plasma calcium jairo urement (mass/volume)Ordered By: Rupali Cline on 08-15-2023 Calcium [Mass/Vol] 9.2 mg/dL 8.5-10.1 [facility] Serum or plasma cholesterol in HDL measurement (mass/volume)Ordered By: Rupali Cline on 08-15-2023 Cholesterol in HDL [Mass/Vol] 54 mg/dL >40 [facility] Comment on above: The drugs N-Acetylcy steine and Metamizole may falsely depress this assay. Reference Range HDL <40 mg/dL Low HDL Cholesterol HDL >or= 60 mg/dL High HDL Cholesterol Serum or plasma cholesterol in VLDL measurement (mass/volume)Ordered By: Rupali Cline on 08-15-2023 Cholesterol in VLDL [Mass/Vol] 34 mg/dL 5-40 [facility] Serum or plasma creatinine m easurement (mass/volume)Ordered By: Rupali Cilne on 08-15-2023 Creatinine [Mass/Vol] 0.69 mg/dL 0.55-1.02 [facility] Comment on above: The validity of the calculated GFR & GFRAA in patients over 70 years has not been determined. Clinical correlation is essential. Serum or plasma low density lipoprotein (LDL) cholesterol measurement (mass/volume)Ordered By: Rupali Cline on 08-15-2023 Cholesterol in LDL [Mass/Vol] 150 mg/dL 0-130 [facility] Serum or plasma urea nitroge n measurement (mass/volume)Ordered By: Rupali Cline on 08-15-2023 Urea nitrogen [Mass/Vol] 14 mg/dL 7-18 [facility] Thin prep Papanicolaou smear with manual screeningOrdered By: Rupali Cline on 08-15-2023 Thin prep Papanicolaou smear with manual screening 21 U/L 15-37 [facility] Thin prep Papanicolaou smear with manual screening 5 5-15 [facility] XR FOOT GENERAL 3V AP/LAT/OB L RIGHTon 04-09-2023 [facility] DARBY SCREENING W TOMOon 01-15 [facility] UA DIP, URINE (POC)on 2021 BILIRUBIN UA (POCT) Negative Negative [facility] CLARITY UA (POCT) Cloudy [facility] COLOR UA (POCT) Yellow [facility] GLUCOSE UA (POCT) Negative Negative mg/dL [facility] HEMOGLOBIN/BLOOD UA (POCT) Large Abnormal Negative [facility] KETONE UA (POCT) Negative Negative mg/dL [facility] LEUKOCYTES UA (POCT) Moderate Abnormal Negative [facility] NITRITE UA (POCT) Positive Abnormal Negative [facility] PH UA (POCT) 5.5 4.5 - 8.0 [facility] Protein Ql (U) 100 mg/dL Abnormal Negative mg/dL [facility] SPECIFIC GRAVITY UA (POCT) >=1.030 1.005 - 1.030 [facility] UROBILINOGEN UA (POCT) 0.2 E.U./dL Jeane l E.U./dL [facility] Absolute lymphocyte counton 08-17-2022 Lymphocytes Auto (Unsp spec) [#/Vol] 1.91 10*3/uL 0.83-4.51 [facility] Work Phone: Basophil percentageon 2021 Basophils/100 WBC (Bld) 1.4 % 0-1 [facility] Work Phone: Bilirubin [Mass/Vol] 0.30 mg/dL 0.20-1.00 [facility] Work Phone: Comment on above: For patients on eltr ombopag therapy, use of Dimension [place] TBIL is not recommended. Chloride [Moles/Vol] 106 mmol/L 98-107 [facility] Work Phone: Cholesterol [Mass/Vol] 251 mg/dL <200 Wo [facility] Work Phone: [phone] Comment on above: <200 mg/dL Desirable 200-240 mg/dL Borderline >240 mg/dL High Risk Eosinophils/100 WBC (Bld) 2.5 % 0-5 [facility] Work Phone: [phone] Glucose [Mass/Vol] 93 mg/dL 74-106 [facility] Work Phone: Neutrophils (Bld) [#/Vol] 1.9 10*3/uL 2.0-7.7 [facility] Work Phone: Neutrophils/100 WBC (Bld) 42.3 % 47-70 [facility] Work Phone: [phone] Potassium [Moles/Vol] 4.1 mmol/L 3.5-5.1 [facility] Work Phone: Protein [Mass/Vol] 7.2 g/dL 6.4-8.2 [facility] Work Phone: [phone] Sodium [Moles/Vol] 140 mmol/L 136-145 [facility] Work Phone: Triglyceride [Mass/Vol] 175 mg/dL <199 [facility] Work Phone: [phone] Comment on above: The drugs N-Acetylcy steine and Metamizole may falsely depress this assay.Serum Triglycerides Reference Interval Normal <150 mg/dL Borderline high 150 - 199 mg/dL High 200 - 499 mg/dL Very High > or = 500 mg/dL WBC (Bld) [#/Vol] 4.4 10*3/uL 4.4-11.0 [facility] Work Phone: Blood erythrocytes count (nu mber/volume)on 08-17-2022 RBC (Bld) [#/Vol] 4.01 10*6/uL 4.2-5.4 [facility] Work Phone: Blood hemoglobin measurement (mass/volume)on 08-17-2022 Hemoglobin (Bld) [Mass/Vol] 12.5 g/dL 12.0-15.0 [facility] Work Phone: Blood lymphocytes/100 leukoc yteson 08-17-2022 Lymphocytes/100 WBC (Bld) 43.0 % 19-41 [facility] Work Phone: Blood monocytes/100 leukocyt eson 08-17-2022 Monocytes/100 WBC (Bld) 10.6 % 0-10 [facility] Work Phone: Blood platelet mean volumeon 08-17-2022 Platelet mean volume (Bld) [Entitic vol] 10.3 fL 6.2-12.0 [facility] Work Phone: Determination of erythrocyte mean corpuscular volume (MCV)on 08-17-2022 MCV (RBC) [Entitic vol] 97.0 fL 81-99 [facility] Work Phone: Hematocrit Auto (Bld) [Volum e fraction]on 08-17-2022 Hematocrit (Bld) [Volume fraction] 38.9 % 37-47 [facility] Work Phone: Laboratory - Chemistry and C hemistry - challengeon 08-17-2022 ALP [Catalytic activity/Vol] 87 U/L 45-117 [facility] Work Phone: ALT [Catalytic activity/Vol] 29 U/L 13-56 [facility] Work Phone: CO2 [Moles/Vol] 28.0 mmol/L 21.0-32.0 [facility] Work Phone: Globulin (S) [Mass/Vol] 3.8 g/dL 2.2-4.2 [facility] Work Phone: Urea nitrogen/Creatinine [Mass ratio] 20.5 mg/mg 08-17 [facility] Work Phone: Laboratory - Hematology and Cell countson 08-17-2022 Erythrocyte distribution width (RBC) [Entitic vol] 47.0 fL 35.1-43.9 [facility] Work Phone: Erythrocyte distribution width (RBC) [Ratio] 13.1 % 11.6-14.6 [facility] Work Phone: Immature granulocytes/100 WBC (Bld) 0.200 % 0.0-0.9 [facility] Work Phone: Comment on above: IG% - Immature Granu locytes (promyelocytes, myelocytes and metamyelocytes) > 1% indicates that a LEFT SHIFT is Present. MCH (RBC) [Entitic mass] 31.2 pg 27.0-32.0 [facility] Work Phone: Nucleated RBC/100 WBC (Bld) [Ratio] 0 % 0-5 [facility] Work Phone: MCHC Auto (RBC) [Mass/Vol]on 08-17-2022 MCHC (RBC) [Mass/Vol] 32.1 g/dL 32-36 [facility] Work Phone: No Panel Informationon 08-17 Estimated GFR (MDRD) Amer 80 mL/min >60 [facility] Work Phone: Comment on above: GFR Calc Estimated GFR (MDRD) Non-Af Amer 66 mL/min >60 [facility] Work Phone: Comment on above: Non- GFR Calc Vitamin D 25-Hydroxy 32.4 ng/mL [facility] Work Phone: Comment on above: Vitamin D 25(OH) Sta tus Range Deficiency <20 ng/mL (50nmol/L) Insufficiency 20 - 30 ng/mL (50 - 75 nmol/L) Sufficiency 30 - 100 ng/mL (75 - 250 nmol/L) Toxicity >100 ng/mL (>250 nmol/L) Platelets bldon 08-17-2022 Platelets (Bld) [#/Vol] 269 10*3/uL 150-450 [facility] Work Phone: Serum or plasma albumin jairo urement (mass/volume)on 08-17-2022 Albumin [Mass/Vol] 3.4 g/dL 3.2-5.0 [facility] Work Phone: Serum or plasma albumin/glob ulin mass ratioon 08-17-2022 Albumin/Globulin [Mass ratio] 0.9 {ratio} 0.9-2.4 [facility] Work Phone: Serum or plasma calcium jairo urement (mass/volume)on 08-17-2022 Calcium [Mass/Vol] 9.5 mg/dL 8.5-10.1 [facility] Work Phone: Serum or plasma cholesterol in HDL measurement (mass/volume)on 08-17-2022 Cholesterol in HDL [Mass/Vol] 49 mg/dL >40 [facility] Work Phone: Comment on above: The drugs N-Acetylcy steine and Metamizole may falsely depress this assay. Reference Range HDL <40 mg/dL Low HDL Cholesterol HDL >or= 60 mg/dL High HDL Cholesterol Serum or plasma cholesterol in VLDL measurement (mass/volume)on 08-17-2022 Cholesterol in VLDL [Mass/Vol] 35 mg/dL 5-40 [facility] Work Phone: Serum or plasma creatinine m easurement (mass/volume)on 08-17-2022 Creatinine [Mass/Vol] 0.88 mg/dL 0.55-1.02 [facility] Work Phone: Comment on above: The validity of the calculated GFR & GFRAA in patients over 70 years has not been determined. Clinical correlation is essential. Serum or plasma low density lipoprotein (LDL) cholesterol measurement (mass/volume)on 08-17-2022 Cholesterol in LDL [Mass/Vol] 167 mg/dL 0-130 [facility] Work Phone: Serum or plasma urea nitroge n measurement (mass/volume)on 08-17-2022 Urea nitrogen [Mass/Vol] 18 mg/dL 7-18 [facility] Work Phone: Thin prep Papanicolaou smear with manual screeningon 08-17-2022 Thin prep Papanicolaou smear with manual screening 16 U/L 15-37 [facility] Work Phone: Thin prep Papanicolaou smear with manual screening 6 5-15 [facility] Work Phone: MRI BRAIN WO IVCONon 12-28-2 [...] Dec 28 2021 4:38PM EST [id number] Normal [facility] Procedure Noteon [place] Procedure Note Normal [facility] [place] Final Surgical Pathology Rep yobani 11-07-2017 Final Surgical Pathology Report . Pathology ReportsAccession: Collected Date/Time: Received Date/Time: Pathologist:[id number] 11/05/2017 09:40 EST 11/06/2017 07:21 EST MD KAMILAH THAYER Final Surgical Pathology ReportDIAGNOSIS:RIGHT COLON, BIOPSY: SLIGHTLY POLYPOID FRAGMENTS OF COLONIC MUCOSA WITH NO SPECIFIC PATHOLOGIC CHANGES.COMMENT:AOH - D# [id number] INFORMATION:Procedure: COLONOSCOPY WITH BIOPSY OF POLYP RIGHT COLONPreoperative diagnosis: HISTORY HIGH GRADE DYSPLASIA POLYPPostoperative diagnosis: HISTORY HIGH GRADE DYSPLASIA POLYPSPECIMEN:A POLYP, COLORECT - BIOPSY POLYP RIGHT COLONGROSS DESCRIPTION:_Received in formalin labeled right colon polyp biopsy are 3 leal glistening soft tissues averaging 0.2 cm. A S -1Dictated by LUIS JAIN ([facility])MICROSCOPIC DESCRIPTION:Slides reviewed.Electronically Signed byPathology Report verified by [facility] signed by KAMILAH Chapa out Date: 11/07/2017 16:51Performing Lab: [facility], [address] [place] [address] Normal [facility] ([place] Comment on above: Performed By: #### S PFR ####[facility] [place] [id number] Procedure Recordon 11-05-2017 [facility] Procedure Record Normal [facility] [place] Depart Summaryon 11-05-2017 Depart Summary Normal [facility] [place] History and Physicalon 11-05 History and Physical Normal [facility] [place] Outpatient Patient Summaryon 11-05-2017 Outpatient Patient Summary Normal [facility] [place] Office Visiton 05-17-2017 Dietary management education, guidance, and counseling (procedure) yes Invalid Interpretation Code [facility] Work Phone: Documentation of current medications (procedure) Done Invalid Interpretation Code [facility] Work Phone: Tobacco smoking status NHIS Never Invalid Interpretation Code [facility] Work Phone: Tobacco use CPHS Never smoker Invalid Interpretation Code [facility] Work Phone: Office Visiton 12-28-2016 Dietary management education, guidance, and counseling (procedure) yes Invalid Interpretation Code [facility] Work Phone: Documentation of current medications (procedure) Done Invalid Interpretation Code [facility] Work Phone: Tobacco smoking status NHIS Never Invalid Interpretation Code [facility] Work Phone: [phone] Tobacco use [facility]PH[facility] Never smoker Invalid Interpretation Code [facility] Work Phone: [phone] Lab Report: CBC W/Diff, Auto matedon 04-28-2016 Basophils/100 leukocytes 1.5 % High 0-1 [facility] Work Phone: [phone]) 0 Eosinophils/100 leukocytes 2.9 % Invalid Interpretation Code 0-5 [facility] Work Phone: [phone] 0 Erythrocytes (RBC) 3.79 10*6/uL Low 4.2-5.4 [facility] Work Phone: 1) 0 Hematocrit (HCT) 36.7 % Low 37-47 [facility] Work Phone: [phone]) 0 Hemoglobin (HGB) 12.1 g/dL Invalid Interpretation Code 12.0-15.0 [facility] Work Phone: [phone]) 0 immature granulocytes, percentage of total cells, blood 0.000 % Invalid Interpretation Code 0.0-0.9 [facility] Work Phone: [phone] 0 Lymphocytes 1.17 X10 3/UL Invalid Interpretation Code 0.83-4.51 [facility] Work Phone: ) 0 Lymphocytes/100 leukocytes 34.0 % Invalid Interpretation Code 19-41 [facility] Work Phone: [phone] 0 MCH 31.9 pg Invalid Interpretation Code 27.0-32.0 [facility] Work Phone: [phone] 0 MCHC 33.0 G/GL Invalid Interpretation Code 32-36 [facility] Work Phone: [phone] 0 MCV 96.8 fL Invalid Interpretation Code 81-99 [facility] Work Phone: 1) 0 Monocytes/100 leukocytes 13.4 % High 0-10 [facility] Work Phone: 1) 0 neutrophil count, blood 1.7 X10 3/UL Low 2.0-7.7 [facility] Work Phone: [phone] Neutrophils/100 leukocytes 48.2 % Invalid Interpretation Code 47-70 [facility] Work Phone: [phone] Platelets 231 10*3/mm3 Invalid Interpretation Code 150-450 [facility] Work Phone: [phone] PMV by Peng 10.5 fL Invalid Interpretation Code 6.2-12.0 [facility] Work Phone: [phone] RDW-CA 12.6 % Invalid Interpretation Code 11.6-14.6 [facility] Work Phone: [phone] red blood cell distribution width, size density 42.7 fL Invalid Interpretation Code 35.1-43.9 [facility] Work Phone: [phone] WBC (Leukocytes) 3.4 10*3/uL Low 4.4-11.0 [facility] Work Phone: [phone] Lab Report: [facility] 04-28-2016 Alanine aminotransferase (ALT) 39 U/L Invalid Interpretation Code 12-78 [facility] Work Phone: [phone] Albumin 3.8 g/dL Invalid Interpretation Code 3.4-5.0 [facility] Work Phone: [phone] Albumin/Globulin Ratio 1.2 {ratio} Invalid Interpretation Code 0.9-2.4 [facility] Work Phone: [phone] Alkaline phosphatase (ALP) 60 U/L Invalid Interpretation Code 50-136 [facility] Work Phone: [phone] Anion gap 7 mmol/L Invalid Interpretation Code 5-15 [facility] Work Phone: [phone] Aspartate aminotransferase (AST) 28 U/L Invalid Interpretation Code 15-37 [facility] Work Phone: [phone] Bilirubin (total) 0.30 mg/dL Invalid Interpretation Code 0.20-1.00 [facility] Work Phone: [phone] BUN/Creatinine Ratio 22.9 RATIO High 10-20 [facility] Work Phone: [phone] Calcium 9.3 mg/dL Invalid Interpretation Code 8.5-10.1 [facility] Work Phone: [phone] Chloride 106 mmol/L Invalid Interpretation Code 98-107 [facility] Work Phone: [phone] CO2 29.0 mmol/L Invalid Interpretation Code 21.0-32.0 [facility] Work Phone: [phone] Creatinine 0.83 mg/dL Invalid Interpretation Code 0.55-1.20 [facility] Work Phone: [phone] eGFR (non-black) 72 mL/min/{1.73_m2} Invalid Interpretation Code >60 [facility] Work Phone: [phone] eGFR (non-black) 87 mL/min/{1.73_m2} Invalid Interpretation Code >60 [facility] Work Phone: [phone] Globulin 3.1 g/dL Invalid Interpretation Code 2.3-3.5 [facility] Work Phone: [phone] Glucose 87 mg/dL Invalid Interpretation Code 70-110 [facility] Work Phone: [phone] Potassium 4.2 mmol/L Invalid Interpretation Code 3.5-5.1 [facility] Work Phone: [phone] Protein 6.9 g/dL Invalid Interpretation Code 6.4-8.2 [facility] Work Phone: [phone] Sodium 142 mmol/L Invalid Interpretation Code 136-145 [facility] Work Phone: [phone] Urea nitrogen 19 mg/dL High 7-18 [facility] Work Phone: [phone] Lab Report: Lipid Profileon 04-28-2016 Cholesterol 216 mg/dL High 200 [facility] Work Phone: [phone] HDL Cholesterol 50 mg/dL Invalid Interpretation Code [facility] Work Phone: [phone] LDL Cholesterol 123 mg/dL Invalid Interpretation Code 0-130 [facility] Work Phone: [phone] Triglyceride 213 mg/dL High [facility] Work Phone: [phone] very low density lipoproteins 43 mg/dL High 5-40 [facility] Work Phone: [phone] Lab Report: Microalb:Creat R atio,Random URon 04-28-2016 ACR (microalbumin/creatini ne) ratio 12.6 MG/G CRE Invalid Interpretation Code <30 mg/g CRE [facility] Work Phone: [phone] Urine, creatinine 104.00 mg/dL Invalid Interpretation Code NO RANGE EST. [facility] Work Phone: [phone] Urine, microalbumin 1.31 mg/dL Invalid Interpretation Code Units converted. See lab report for original value. [facility] Work Phone: [phone] Lab Report: Vitamin D,25 Hyd roxyon 04-28-2016 vitamin D 25-hydroxy, serum 30.5 ng/mL Invalid Interpretation Code [facility] Work Phone: [phone] Vital Signs Date Time Vital Sign Value Performing Clinician Facility 07-05-2025 14:35-0400 Body temperature 97.8 [degF] Dr. Rupali Cline DO Work Phone: [facility] 07-05-2025 14:35-0400 Diastolic blood pressure 66 mm[Hg] Dr. Rupali Cline DO Work Phone: [facility] 07-05-2025 14:35-0400 Heart rate 64 /min Dr. Rupali Cline DO Work Phone: [facility] 07-05-2025 14:35-0400 Respiratory rate 14 /min Dr. Rupali Cline DO Work Phone: [facility] 07-05-2025 14:35-0400 SaO2% (BldA) [Mass fraction] 98 % Dr. Rupali Cline DO Work Phone: [facility] 07-05-2025 14:35-0400 Systolic blood pressure 141 mm[Hg] Dr. Rupali Cline DO Work Phone: [facility] 07-05-2025 09:55-0400 Body mass index (BMI) [Ratio] 28.2 kg/m2 Dr. Rupali Cline DO Work Phone: [facility] 07-05-2025 09:55-0400 Body weight [address] Rupali Cline DO Work Phone: [facility] 07-05-2025 09:45-0400 Body height 157.[address] Rupali Cline DO Work Phone: [facility] 11-17-2024 11:16-0500 Body mass index (BMI) [Ratio] 30.29 kg/m2 [place] Stephanie [employer] Work Phone: [facility] 11-17-2024 11:16-0500 Body weight 73.3 kg [place] Stephanie [employer] Work Phone: [facility] 11-17-2024 11:16-0500 Diastolic blood pressure 78 mm[Hg] [place] Stephanie [employer] Work Phone: [facility] 11-17-2024 11:16-0500 Heart rate 89 /min [place] Stephanie [employer] Work Phone: [facility] 11-17-2024 11:16-0500 SaO2% (BldA) [Mass fraction] 97 % [place] Stephanie [employer] Work Phone: [facility] 11-17-2024 11:16-0500 Systolic blood pressure 126 mm[Hg] [place] Stephanie [employer] Work Phone: [facility] 09-17-2024 11:12-0500 Body mass index (BMI) [Ratio] 30.85 kg/m2 [place] Stephanie [employer] Work Phone: [facility] 09-17-2024 11:12-0500 Body weight 74.66 kg [place] Stephanie [employer] Work Phone: [facility] 09-17-2024 11:12-0500 Diastolic blood pressure 89 mm[Hg] [place] Stephanie [employer] Work Phone: [facility] 09-17-2024 11:12-0500 Heart rate 86 /min [place] Stephanie [employer] Work Phone: [facility] 09-17-2024 11:12-0500 Respiratory rate 16 /min [place] Stephanie [employer] Work Phone: [facility] 09-17-2024 11:12-0500 Systolic blood pressure 159 mm[Hg] [place] Stephanie [employer] Work Phone: [facility] 07-22-2024 08:46-0400 Body height 155.6 cm [place] Auguste MD Work Phone: [facility] 07-22-2024 08:46-0400 Body mass index (BMI) [Ratio] 30.74 kg/m2 [place] Auguste MD Work Phone: [facility] 07-22-2024 08:46-0400 Body weight 74.39 kg [place] Auguste MD Work Phone: [facility] 07-22-2024 08:46-0400 Diastolic blood pressure 70 mm[Hg] [place] Auguste MD Work Phone: [facility] 07-22-2024 08:46-0400 Systolic blood pressure 116 mm[Hg] [place] Auguste MD Work Phone: [facility] 06-16-2024 09:51-0400 Body mass index (BMI) [Ratio] 31.32 kg/m2 [place] Stephanie [employer] Work Phone: [facility] 06-16-2024 09:51-0400 Body weight 75.2 kg [place] Stephanie [employer] Work Phone: [facility] 06-16-2024 09:51-0400 Diastolic blood pressure 78 mm[Hg] [place] Stephanie [employer] Work Phone: [facility] 06-16-2024 09:51-0400 Heart rate 80 /min [place] Stephanie [employer] Work Phone: [facility] 06-16-2024 09:51-0400 SaO2% (BldA) [Mass fraction] 98 % [place] Stephanie [employer] Work Phone: [facility] 06-16-2024 09:51-0400 Systolic blood pressure 119 mm[Hg] [place] Stephanie [employer] Work Phone: [facility] 03-17-2024 09:17-0400 Body mass index (BMI) [Ratio] 31.1 kg/m2 [place] Stephanie [employer] Work Phone: [facility] 03-17-2024 09:17-0400 Body weight 74.66 kg [place] Stephanie [employer] Work Phone: [facility] 03-17-2024 09:17-0400 Diastolic blood pressure 81 mm[Hg] [place] Stephanie [employer] Work Phone: [facility] 03-17-2024 09:17-0400 Heart rate 73 /min [place] Stephanie [employer] Work Phone: [facility] 03-17-2024 09:17-0400 Respiratory rate 18 /min [place] Stephanie [employer] Work Phone: [facility] 03-17-2024 09:17-0400 SaO2% (BldA) [Mass fraction] 95 % [place] Stephanie [employer] Work Phone: [facility] 03-17-2024 09:17-0400 Systolic blood pressure 130 mm[Hg] [place] Brown [employer] Work Phone: [facility] 03-08-2023 09:35-0400 Body weight 71.58 kg Mirna Dahlhausen [employer] Work Phone: [facility] 03-08-2023 09:35-0400 Diastolic blood pressure 70 mm[Hg] Mirna Dahlhausen [employer] Work Phone: [facility] 03-08-2023 09:35-0400 Heart rate 64 /min Mirna Dahlhausen [employer] Work Phone: [facility] 03-08-2023 09:35-0400 Respiratory rate 16 /min Mirna Dahlhausen [employer] Work Phone: [facility] 03-08-2023 09:35-0400 SaO2% (BldA) [Mass fraction] 95 % Mirna Dahlhausen [employer] Work Phone: [facility] 03-08-2023 09:35-0400 Systolic blood pressure 118 mm[Hg] Mirna Dahlhausen [employer] Work Phone: [facility] 10-04-2022 13:31-0500 Body height 154.9 cm [place] Auguste MD Work Phone: [facility] 10-04-2022 13:31-0500 Body weight 72.58 kg [place] Auguste MD Work Phone: [facility] 10-04-2022 13:31-0500 Diastolic blood pressure 68 mm[Hg] [place] Auguste MD Work Phone: [facility] 10-04-2022 13:31-0500 Systolic blood pressure 114 mm[Hg] [place] Auguste MD [facility]: [facility] System 08-24-2022 12:58-0400 Body temperature 98.29 [degF] Pavan Book MD Work Phone: [facility] 08-24-2022 12:58-0400 Diastolic blood pressure 79 mm[Hg] Pavan James MD Work Phone: [facility] 08-24-2022 12:58-0400 Heart rate 86 /min Pavan James MD Work Phone: [facility] 08-24-2022 12:58-0400 Respiratory rate 17 /min Pavan James MD Work Phone: [facility] 08-24-2022 12:58-0400 Systolic blood pressure 138 mm[Hg] Pavan James MD Work Phone: [facility] 06-16-2022 15:05-0400 Body height 154.9 cm Mirnabejni Lovehausmitch SAS PROGRAMMER ANALYST.[employer]ER[employer] ROLLER Work Phone: [facility] 06-16-2022 15:05-0400 Body weight 74.39 kg Mirnabenji Lovehausen SAS PROGRAMMER ANALYST.FIBERGLASS ROLLER Work Phone: [facility] 06-16-2022 15:05-0400 Diastolic blood pressure 73 mm[Hg] Mirna Dahlhausen SAS PROGRAMMER ANALYST.FIBERGLASS ROLLER Work Phone: [facility] 06-16-2022 15:05-0400 Heart rate 77 /min Mirna Dabunnyhausen SAS PROGRAMMER ANALYST.FIBERGLASS ROLLER Work Phone: [facility] 06-16-2022 15:05-0400 Respiratory rate 16 /min Mirna Dabunnyhausen SAS PROGRAMMER ANALYST.F[employer]ERGLASS ROLLER Work Phone: [facility] 06-16-2022 15:05-0400 SaO2% (BldA) [Mass fraction] 98 % Mirna Dahlhausen SAS PROGRAMMER ANALYST.FIBERGLASS ROLLER Work Phone: [facility] 06-16-2022 15:05-0400 Systolic blood pressure 113 mm[Hg] Mirna Dahlhausen SAS PROGRAMMER ANALYST.FIBERGLASS ROLLER Work Phone: [facility] 05-18-2022 16:03-0400 Body height 154.9 cm Babatunde Penaloza MD Work Phone: [facility] 05-18-2022 16:03-0400 Body weight 74.8 kg Babatunde Penaloza MD Work Phone: [facility] 05-18-2022 16:03-0400 Diastolic blood pressure 75 mm[Hg] Babatunde Penaloza MD Work Phone: [facility] 05-18-2022 16:03-0400 Heart rate 79 /min Babatunde Penaloza MD Work Phone: [facility] 05-18-2022 16:03-0400 Systolic blood pressure 139 mm[Hg] Babatunde Penaloza MD Work Phone: [facility] 08-17-2021 10:47-0400 Body temperature 98.49 [degF] Pavan James MD Work Phone: [facility] 08-17-2021 10:47-0400 Diastolic blood pressure 81 mm[Hg] Pavan James MD Work Phone: [facility] 08-17-2021 10:47-0400 Heart rate 90 /min Pavan James MD Work Phone: [facility] 08-17-2021 10:47-0400 Systolic blood pressure 152 mm[Hg] Pavan James MD Work Phone: [facility] 03-07-2016 13:16-0400 BMI (Body Mass Index) 28.71 kg/m2 [facility] Work Phone: 03-07-2016 13:16-0400 Body Temperature 98.2 [degF] [facility] Work Phone: 03-07-2016 13:16-0400 BP Diastolic 84 mm[Hg] [facility] Work Phone: 03-07-2016 13:16-0400 BP Systolic 130 mm[Hg] [facility] Work Phone: 03-07-2016 13:16-0400 BSA (Body Surface Area) 1.73 m2 [facility] Work Phone: 03-07-2016 13:16-0400 Pulse (Heart Rate) 85 /min [facility] Work Phone: 03-07-2016 13:16-0400 Respiratory Rate 14 /min [facility] ter [facility] Work Phone: 03-07-2016 13:16-0400 Weight 71.22 kg [facility] Work Phone: 01-07-2015 10:11-0400 Height 157.48 cm [facility] Work Phone: Encounters Encounter Date Encounter Type Care Provider Facility Start: 07-10-2025 End: 07-10-2025 ambulatory RUPALI CLINE Facility:[facility] Start: 07-06-2025 End: 07-06-2025 Telemedicine consultation [...] 06-12-2025 End: 06-17-2025 Telephone encounter Indiana Brown APRN.F[employer]ERGLASS ROLLER Work Phone: Neurology Comment on above: Medication Problem Start: 05-18-2025 End: 05-18-2025 Telephone encounter Indiana Brown APRN.FIBERGLASS ROLLER Work Phone: Neurology Start: 02-09-2025 End: 02-09-2025 Telephone encounter Enmanuel Phipps RN Work Phone: [facility] Delivery Comment on above: Insurance Authorizat ion; [employer] Start: 02-04-2025 End: 04-06-2025 Refill Babatunde Penaloza MD Work Phone: Neurology Comment on above: Refill Request Start: 02-03-2025 End: 02-03-2025 ambulatory INDIANA AUGUSTE Facility:[facility] Start: 02-03-2025 Encounter for gynecological examination (general) (routine) without abnormal findings [facility] Start: 02-03-2025 End: 02-03-2025 Patient encounter status Screen Wstr [facility] Start: 02-03-2025 End: 02-03-2025 Subsequent hospital visit by physician Screen Mammo [facility] Mammogram Comment on above: Encounter for routin e gynecologic examination in Medicare patient [Z01.419] Start: 01-17-2025 End: 01-19-2025 Refill Babatunde Penaloza MD Work Phone: Neurology Comment on above: Refill Request Start: 11-17-2024 End: 11-17-2024 Patient encounter procedure Indiana Brown APRN.FIBERGLASS ROLLER Work Phone: Neurology Comment on above: RLS (restless legs s yndrome) (Primary Dx); Insomnia, unspecified type Start: 11-17-2024 End: 11-17-2024 ambulatory [facility] Facility:[facility] Start: 09-17-2024 End: 09-24-2024 Telephone encounter Layla Cherry APRN.CNM Work Phone: OB/Gynecology Comment on above: Results UTI Start: 09-17-2024 End: 09-17-2024 ambulatory HAGERMAN Darren [facility] Facility:[facility] Start: 09-17-2024 End: 09-17-2024 Patient encounter procedure Layla Cherry APRN.CNM Work Phone: OB/Gynecology Comment on above: Urinary urgency (Lucía baldo Dx); Urinary frequency RLS (restless legs s yndrome) (Primary Dx) Start: 08-21-2024 End: 08-21-2024 ambulatory Rupali [facility] Facility:[facility] Start: 07-22-2024 End: 07-22-2024 ambulatory INDIANA AUGUSTE Facility:[facility] Start: 07-22-2024 End: 07-22-2024 Patient encounter procedure Indiana Auguste MD Work Phone: OB/Gynecology Comment on above: Encounter for routin e gynecologic examination in Medicare patient (Primary Dx); Encounter for screening mammogram for breast cancer Start: 07-22-2024 End: 07-22-2024 Patient encounter status Indiana Auguste MD Work Phone: [facility] Start: 06-16-2024 End: 06-16-2024 Patient encounter procedure Indiana Brown APRN.FIBERGLASS ROLLER Work Phone: Neurology Comment on above: RLS (restless legs s yndrome) (Primary Dx) Start: 06-09-2024 Refill Babatunde Penaloza MD Work Phone: Neurology Comment on above: Refill Request Start: 03-17-2024 Telephone encounter Indiana adrian APRN.FIBERGLASS ROLLER Work Phone: Neurology Start: 03-17-2024 End: 03-17-2024 Patient encounter procedure Indiana Brown APRN.FIBERGLASS ROLLER Work Phone: Neurology Comment on above: RLS (restless legs s yndrome) (Primary Dx) Start: 02-01-2024 Documentation procedure Mammog vince Coordinator [facility] Start: 02-01-2024 Letter encounter Mammography Coordinator [facility] Department Start: 01-31-2024 End: 01-31-2024 Subsequent hospital visit by physician Bone Density [facility] Work Phone: Radiology Comment on above: At risk for decrease d bone density [Z91.89] Encounter for screen ing mammogram for malignant neoplasm of breast [Z12.31] Start: 12-18-2023 Telephone encounter Neurology Provid er Neurology Comment on above: Patient Update Start: 12-11-2023 Refill Babatunde Penaloza MD Work Phone: Neurology Comment on above: Refill Request Start: 08-15-2023 End: 08-15-2023 ambulatory [facility] Work Phone: Start: 08-15-2023 End: 08-15-2023 Patient encounter procedure [facility]-Laboratory, Joseph Gonsalves [facility] Start: 06-22-2023 Refill Mirna Dahlha usen SAS PROGRAMMER ANALYST.F[employer]ERGLASS ROLLER Work Phone: Neurology Comment on above: Refill Request Start: 06-01-2023 Refill Mirna Dahlha usen SAS PROGRAMMER ANALYST.F[employer]ERGLASS ROLLER Work Phone: Neurology Comment on above: Refill Request Start: 05-31-2023 Refill Michele Verma Work Phone: Neurology Comment on above: Refill Request Start: 04-13-2023 Refill Mirna Dahlha usen SAS PROGRAMMER ANALYST.FIBERGLASS ROLLER Work Phone: Neurology Comment on above: Med Change Request Start: 04-09-2023 End: 04-09-2023 Patient encounter procedure Alessandro Leslie Work Phone: Podiatry Comment on above: Porokeratosis (Prima ry Dx) Start: 04-09-2023 End: 04-09-2023 Subsequent hospital visit by physician Xr [facility] Work Phone: Radiology Comment on above: Pain in right foot [ M79.671] Start: 04-03-2023 Telephone encounter Enmanuel wilkes RN Work Phone: [facility] Comment on above: Insurance Authorizat ion ([employer] 140MG/ML auto-injectors/) Start: 03-08-2023 End: 03-08-2023 Patient encounter procedure Mirna Baum APRN.FIBERGLASS ROLLER Work Phone: Neurology Comment on above: RLS (restless legs s yndrome) (Primary Dx); Intractable episodic headache, unspecified headache type Start: 02-19-2023 Orders Only Alessandro scott Work Phone: Podiatry Comment on above: Pain in right foot ( Primary Dx) Refill Request Start: 01-24-2023 Refill Babatunde Penaloza MD Work Phone: Neurology Comment on above: Refill Request Start: 01-16-2023 Documentation procedure Mammog vince Coordinator [facility] Start: 01-16-2023 Letter encounter Mammography Coordinator [facility] Department Start: 01-15-2023 End: 01-15-2023 Patient encounter status Screen Wstr [facility] Start: 01-15-2023 End: 01-15-2023 Subsequent hospital visit by physician Screen Mammo [facility] Mammogram Comment on above: Encounter for gyneco logical examination (general) (routine) without abnormal findings [Z01.419] Start: 01-02-2023 Refill Mirna Dahlha usen SAS PROGRAMMER ANALYST.F[employer]ERGLASS ROLLER Work Phone: Neurology Comment on above: Refill Request Start: 12-17-2022 Refill Mirna Dahlha usen SAS PROGRAMMER ANALYST.F[employer]ERGLASS ROLLER Work Phone: Neurology Comment on above: Refill Request Start: 11-23-2022 End: 11-23-2022 ambulatory Babatunde Penaloza MD Work Phone: Neurology Comment on above: Migraine without aur a and without status migrainosus, not intractable (Primary Dx) Start: 11-23-2022 End: 11-23-2022 Telemedicine consultation with patient Babatunde Penaloza MD Work Phone: [facility] Start: 11-06-2022 Refill Mirna Dahlha usen SAS PROGRAMMER ANALYST.FIBERGLASS ROLLER Work Phone: Neurology Comment on above: Refill Request Start: 11-04-2022 Refill Mirna Dahlha usen SAS PROGRAMMER ANALYST.FIBERGLASS ROLLER Work Phone: Neurology Comment on above: Refill [...] Start: 10-04-2022 End: 10-04-2022 Patient encounter status Indinaa Auguste MD Work Phone: OB/Gynecology Start: 08-28-2022 Orders Only Pavan lee MD Work Phone: [facility] Phys[facility] Start: 08-25-2022 End: 08-29-2022 ambulatory [facility] Start: 08-24-2022 End: 08-24-2022 Office outpatient visit 15 minutes Pavan James MD Work Phone: [facility] Comment on above: Cystocele, midline ( Primary Dx); Incomplete uterine prolapse Start: 08-21-2022 E-mail encounter fro m caregiver [facility] Provider PARI MASON Start: 08-21-2022 Patient encounter procedure [facility] Comment on above: October Appointment with Dr. Penaloza Start: 08-17-2022 End: 08-17-2022 ambulatory [facility] Work Phone: Start: 08-17-2022 End: 08-17-2022 Patient encounter procedure [facility]-Joseph Page [facility] Start: 06-30-2022 Refill Mirna acosta APRN.FIBERGLASS ROLLER Work Phone: Neurology Comment on above: Refill Request Start: 06-30-2022 Refill Mirna acosta APRN.FIBERGLASS ROLLER Work Phone: Neurology Comment on above: Refill Request Start: 06-16-2022 End: 06-16-2022 Patient encounter procedure Mirna Baum SAS PROGRAMMER ANALYST.FIBERGLASS ROLLER Work Phone: Neurology Comment on above: RLS (restless legs s yndrome) (Primary Dx); Intractable episodic headache, unspecified headache type Start: 05-18-2022 End: 05-18-2022 Patient encounter procedure Babatunde Penaloza MD Work Phone: Neurology Comment on above: Migraine without aur a and without status migrainosus, not intractable (Primary Dx) Start: 03-30-2022 ambulatory Mirna Marieebunnyanette usen SAS PROGRAMMER ANALYST.FIBERGLASS ROLLER Work Phone: [facility] Start: 03-30-2022 Patient encounter procedure Mirna Baum SAS PROGRAMMER ANALYST.FIBERGLASS ROLLER Work Phone: Neurology Comment on above: Appointment Start: 02-04-2022 ambulatory Mirna Leonela usen SAS PROGRAMMER ANALYST.FIBERGLASS ROLLER Work Phone: Neurology Comment on above: Lyrica Start: 08-17-2021 End: 08-17-2021 ambulatory PAVAN JAMES [facility] Start: 08-17-2021 End: 08-17-2021 Office outpatient visit 15 minutes Pavan James MD Work Phone: [facility] Phys[facility] Comment on above: Cystocele, midline Start: 11-05-2017 End: 11-05-2017 Ambulatory [facility] Facility:B Procedures Date Procedure Procedure Detail Performing [...] PM EST Office Visit Neurology [address] [place] [address] [place] [address] [place] [address] follow up on Migraines Neurology Comment on above: follow up on Migrain es Start: 07-06-2025 End: 10-05-2025 Ferritin [Mass/volume] in Serum or Plasma FERRITIN Lab Routine RLS (restless legs syndrome) Expected: 07/06/2025, Expires: 10/05/2025 [facility] Work Phone: Comment on above: Expected: 07/06/2025 , Expires: 10/05/2025 Start: 07-06-2025 End: 10-05-2025 Iron and Iron binding capacity panel - Serum or Plasma IRON AND TIBC Lab Routine RLS (restless legs syndrome) Expected: 07/06/2025, Expires: 10/05/2025 [facility] Comment on above: Expected: 07/06/2025 , Expires: 10/05/2025 Start: 07-06-2025 End: 07-06-2025 Patient encounter procedure 07/06/2025 11:30 AM EDT Office Visit Neurology [address] [place] [address] Indiana Brown APRN.FIBERGLASS ROLLER [address] [place] [address] Restless Leg syndrome Neurology Comment on above: Restless Leg syndrom e Start: 07-05-2025 [facility] Start: 07-05-2025 [facility] Start: 06-29-2025 Influenza vaccination Influenza Vacc ine (#1) [facility] Start: 06-04-2025 End: 06-04-2025 Patient encounter procedure 06/04/2025 11:30 AM EDT Office Visit Neurology [address] [place], [place] [id number] Indiana Brown APRN.FIBERGLASS ROLLER [address] [place] [address] Restless legs Neurology Comment on above: Restless legs Start: 05-06-2025 End: 05-06-2025 Patient encounter procedure 05/06/2025 11:30 AM EDT Office Visit Neurology [address] [place] [address] [place] [address] [place] [address] follow up Neurology Comment on above: follow up Start: 04-01-2025 End: 04-01-2025 Patient encounter procedure 04/01/2025 11:30 AM EDT Office Visit Neurology [address] [place] [address] [place] [address] [place] [address] follow up Neurology Comment on above: follow up Start: 02-03-2025 End: 02-03-2025 Patient encounter procedure 02/03/2025 11:30 AM EDT Appointment Mammogram [address] [place], [place] [id number] Encounter for routine gynecologic examination in Medicare patient [Z01.419]; Encounter for screening mammogram for breast cancer [Z12.31] Mammogram Comment on above: Encounter for routin e gynecologic examination in Medicare patient [Z01.419]; Encounter for screening mammogram for breast cancer [Z12.31] Start: 11-17-2024 End: 11-17-2024 Patient encounter procedure 11/17/2024 11:30 AM EST Office Visit Neurology [address] [place] [address] Indiana Brown, RICH.FIBERGLASS ROLLER [address] [place] [address] follow up for medications changes 06/16/24 Neurology Comment on above: follow up for medica tions changes 06/16/24 Start: 10-29-2024 Advance Directive Discussion Advance Directive Discussion [facility] Start: 10-29-2024 Medicare Advantage Annual Wellness Visit Medicare Advantage Annual Wellness Visit [facility] Start: 10-29-2024 Shingrix Vaccine (2 of 2) Shingrix Vaccine (2 of 2) [facility] Start: 09-17-2024 End: 09-17-2024 Patient encounter procedure 09/17/2024 11:00 AM EST Office Visit Neurology [address] [place] [address] Indiana Brown, RICH.FIBERGLASS ROLLER [address] [place] [address] follow up for medications changes 06/16/24 Neurology Comment on above: follow up for medica tions changes 06/16/24 Start: 07-22-2024 End: 07-22-2024 Patient encounter procedure 07/22/2024 8:40 AM EDT Office Visit OB/Gynecology [address] [place] [address] Indiana Auguste MD [address] [place] [address] Annual OB/Gynecology Comment on above: Annual Start: 06-29-2024 Covid-19 Vaccine ( season) Covid-19 Vaccine () [facility] Start: 06-29-2024 Influenza vaccination [facility] Start: 06-16-2024 End: 06-16-2024 Patient encounter procedure 06/16/2024 10:00 AM EDT Office Visit Neurology [address] [place] [address] Indiana Brown, RICH.FIBERGLASS ROLLER [address] [place] [address] 8 week follow up medication change. Neurology Comment on above: 8 week follow up med ication change. Start: 10-29-2023 Advance Directive Discussion Advance Directive Discussion [facility] Start: 10-29-2023 Depression Assessment Depression Ass [facility] Start: 06-29-2023 Covid-19 Vaccine ( season) Covid-19 Vaccine () [facility] Start: 06-29-2023 Influenza vaccination [facility] Start: 10-29-2022 ADVANCE DIRECTIVE DISCUSSION ADVANCE DIRECTIVE DISCUSSION [facility] Start: 10-29-2022 [facility] Start: 08-24-2022 End: 08-24-2022 Patient encounter procedure 08/24/2022 Office Visit Urogynecology Pavan James MD [address] [facility] [address] [place] [address] [facility] Start: 06-29-2022 Influenza vaccination INFLUENZA (#1) [facility] Start: 12-27-2021 COVID-19 VACCINE (4 - Booster for Moderna series) COVID-19 VACCINE (4 - Booster for Moderna series) [facility] Start: 10-29-2021 ADVANCE DIRECTIVE DISCUSSION ADVANCE DIRECTIVE DISCUSSION [facility] Start: 10-29-2021 DEPRESSION ASSESSMENT DEPRESSION ASS ESSMENT [facility] Start: 10-24-2021 COVID-19 VACCINE (4 - Booster for Moderna series) COVID-19 VACCINE (4 - Booster for Moderna series) [facility] Start: 10-24-2021 COVID-19 VACCINE (4 - Moderna series) COVID-19 VACCINE (4 - Moderna series) [facility] Start: 06-29-2021 Influenza vaccination Sequenti al Influenza Vaccine (#1) [facility] Start: 2017 RSV Vaccine (1 - 1-d ose 75+ series) RSV Vaccine (1 - 1-dose 75+ series) [facility] Start: 05-17-2017 End: 05-17-2017 Appointment Appointment [facility] Work Phone: Start: 12-28-2016 End: 12-28-2016 X-ray exam of shoulder X-Ray, Shoulder [facility] Work Phone: Start: 03-07-2016 End: 04-28-2016 *CBC with Differential *CBC with Differential [facility] Work Phone: Start: 03-07-2016 End: 04-28-2016 *CMP Complete Metabolic Panel *CMP Complete Metabolic Panel [facility] Work Phone: Start: 03-07-2016 End: 04-28-2016 *Microalbumin, Creatine Ratio, rand urine *Microalbumin, Creatine Ratio, rand urine [facility] Work Phone: Start: 03-07-2016 End: 04-28-2016 25-Hydroxyvitamin D2+25-Hydroxyvitamin D3 [Mass/volume] in Serum or Plasma *Vitamin D (Calciferol) [facility] Work Phone: Start: 03-07-2016 End: 04-28-2016 Lipid panel [AGGREGATE] *Lipid Profile [facility] Work Phone: Start: 11-16-2015 End: 11-16-2015 X-ray exam of hip X-Ray, Hip Unilateral [facility] Work Phone: Start: 11-16-2015 End: 11-16-2015 X-ray exam of pelvis X-Ray, Pelvis [facility] Work Phone: Start: 10-01-2008 DIABETES SCREEN DIABETES SCREEN [facility] Start: 10-01-2008 Diabetes Screening Diabetes Screenin g [facility] Start: 2007 BONE DENSITY BONE DENSITY [facility] Start: 2007 Bone Density Screening Bone Density Screening [facility] Start: 2007 Fall risk assessment Falls Risk Asse ssment [facility] Start: 2007 Pneumococcal Vaccine : 65+ (1 - PCV) Pneumococcal Vaccine: 65+ (1 - PCV) [facility] Start: 2007 Pneumococcal Vaccine : 65+ (1 of 1 - PCV) Pneumococcal Vaccine: 65+ (1 of 1 - PCV) [facility] Start: 2007 Pneumococcal Vaccine : Age 65+ (1 - PCV) Pneumococcal Vaccine: Age 65+ (1 - PCV) [facility] Start: 2007 Pneumococcal Vaccine : Age 65+ (1 of 1 - PPSV23) Pneumococcal Vaccine: Age 65+ (1 of 1 - PPSV23) [facility] Start: 2007 PNEUMOCOCCAL: 65+ (1 - PCV) PNEUMOCOCCAL: 65+ (1 - PCV) [facility] Start: 2007 PNEUMOVAX AGE 65 AND OVER WITH 5YR LOOKBACK (#1) PNEUMOVAX AGE 65 AND OVER WITH 5YR LOOKBACK (#1) [facility] Start: 2007 Screening for osteoporosis Bone Density Screening [facility] Start: 2002 RSV Vaccine (1 - 1-d ose 60+ series) RSV Vaccine (1 - 1-dose 60+ series) [facility] Start: 1992 Administration of he rpes zoster vaccine Zoster Vaccines (1 of 2) [facility] Start: 1992 Pneumococcal Vaccine : 50+ (1 of 1 - PCV) Pneumococcal Vaccine: 50+ (1 of 1 - PCV) [facility] Start: 1992 SHINGRIX VACCINE (1 of 2) SHINGRIX VACCINE (1 of 2) [facility] Start: 1982 Screening for malign ant neoplasm of breast Mammogram [facility] Start: 1961 Urine microalbumin profile [facility] Start: 1960 Anxiety Screening Anxiety Screening [facility] Start: 1960 Depression Screening Depression Scre ening [facility] Start: 1960 Hepatitis C screening Hepatitis C Sc reening [facility] Start: 1954 Depression screening using PHQ-9 (Patient Health Questionnaire 9) score [facility] Start: 1945 History and physical examination, annual for health maintenance Wellness Visit [facility] Start: 1942 Screening for osteoporosis Dexa Scan [facility] Start: 1942 Tetanus vaccination Tetanus: Every 1 0yrs [facility] Bacteria identified in Urine by Culture URINE CULTURE Microbiology Routine Vaginal irritation 10/04/2022 2:57 PM EST [facility] Work Phone: Bacteria identified in Urine by Culture URINE CULTURE Microbiology Routine Urinary urgency Urinary frequency 09/17/2024 1:10 PM EST [facility] Work Phone: DBT Breast - bilater al screening DARBY SCREENING W [facility]TA[facility] Radiology Routine Encounter for screening mammogram for malignant neoplasm of breast 01/31/2024 8:07 AM EDT [facility] Work Phone: End: 08-21-2025 DBT Breast - bilateral screening DARBY SCREENING W [facility]TA[facility] Radiology Routine Encounter for routine gynecologic examination in Medicare patient Encounter for screening mammogram for breast cancer 1 Occurrences starting 07/22/2024 until 08/21/2025 [facility] Work Phone: Comment on above: 1 Occurrences starti ng 07/22/2024 until 08/21/2025 DBT Breast - bilater al screening DARBY SCREENING W MURTAZA Radiology Routine Encounter for routine gynecologic examination in Medicare patient Encounter for screening mammogram for breast cancer 02/03/2025 11:48 AM EDT [facility] Work Phone: DXA Skeletal system.axial Views for bone density DXA-AXIAL SKELETON Radiology Routine At risk for decreased bone density 01/31/2024 8:33 AM EDT [facility] Work Phone: End: 11-03-2023 DXA-AXIAL SKELETON DXA-AXIAL SKELETON Radiology Routine Encounter for screening for osteoporosis 1 Occurrences starting 10/04/2022 until 11/03/2023 [facility] Work Phone: Comment on above: 1 Occurrences starti ng 10/04/2022 until 11/03/2023 End: 11-03-2023 DARBY SCREENING W MURTAZA DARBY SCREENING W MURTAZA Radiology Routine Encounter for gynecological examination (general) (routine) without abnormal findings Encounter for screening mammogram for breast cancer 1 Occurrences starting 10/04/2022 until 11/03/2023 [facility] Work Phone: Comment on above: 1 Occurrences starti ng 10/04/2022 until 11/03/2023 Patient Education Causes of Syncope [facility] Work Phone: Troponin T.cardiac [Mass/volume] in Serum or Plasma by High sensitivity method [facility] End: 03-20-2024 XR FOOT GENERAL 3V AP/LAT/OBL RIGHT XR FOOT GENERAL 3V AP/LAT/OBL RIGHT Radiology Routine Pain in right foot 1 Occurrences starting 02/19/2023 until 03/20/2024 [facility] Work Phone: Comment on above: 1 Occurrences starti ng 02/19/2023 until 03/20/2024 [facility] Immunizations Immunization Date Immunization Notes Care Provider [facility] 08-26-2024 influenza virus vaccine, unspecified formulation Indiana Brown APRN.FIBERGLASS ROLLER Work Phone: [facility] 08-18-2022 influenza virus vaccine, unspecified formulation Xr Mob Work Phone: [facility] 12-23-2020 [facility] ([facility] 11-25-2020 Covid ([facility] 08-11-2020 influenza, high dose seasonal, preservative-free Mirna Baum SAS PROGRAMMER ANALYST.FIBERGLASS ROLLER Work Phone: [facility] Payers Date Payer Category Payer Self-pay [id number] 2021 Medicare AETNA MEDICARE A ETNA MEDICARE PPO [id number] 2021-Present [phone] [address] [place] [address] PPO [id number] 2021 Medicare (Managed Care) AETNA MD DICARE [id number] 2019 Medicare AETNA [facility] (PPO) [id number] 2019-Present [phone] [address] [place] [address] [id number] 2019 Medicare [id number] 2017 Medicare [id number] 2014 Private Health Insurance 101 [id number] 1940 Unknown [id number] 1940 Unknown [id number] Medicare [id number] Unknown [id number] Unknown [id number] Social History Date Type Detail Facility Start: 08-17-2020 End: 06-16-2022 Tobacco smoking status NHIS Never smoked tobacco [facility] Start: 08-17-2020 End: 06-16-2022 Tobacco use and exposure Smokeless tobacco non-user [facility] Start: 08-17-2020 End: 11-17-2024 Alcohol intake Current drinker of alcohol (finding) [facility] Start: 08-17-2020 History SDOH Alcohol Frequency 2 [facility] Start: 08-17-2020 History SDOH Alcohol Std Drinks 1 [facility] Start: 1940 Sex Assigned At Not on file [facility] Start: 01-09-2022 End: 06-16-2022 Exposure to SARS-CoV-2 (event) Not sure [facility] Start: 02-13-2012 History SDOH Alcohol Comment rarely 1 per month [facility] Start: 08-14-2022 End: 08-24-2022 Exposure to SARS-CoV-2 (event) Yes [facility] Start: 09-05-2021 Tobacco smoking stat us NHIS Unknown if ever smoked [facility] Start: 1940 Sex Assigned At Female [facility] Start: 10-05-2020 End: 04-09-2023 History of Social function [facility] Start: 10-05-2020 End: 04-09-2023 Tobacco use panel [facility] Start: 09-29-2012 Adult Depression Screening Assessment 0 [facility] Mental Status Date Assessment Result Facility 07-05-2025 Cognitive function Level Of Cons ciousness Awake;Alert;Appropriate;Follow s Commands [facility] Work Phone: Clinical Notes 08-16-2021 to 07-06-2025 Patient InstructionsIndiana Brown APRN.CNP - 07/06/2025 11:30 AM EDT Note Date & Type Note Facility 07-06-2025 Instructions Indiana Brown APRN.CNP - 07/06/2025 11:47 AM EDT Melatonin 1 mg about 3 hours before desired bedtime, then 3 mg at bedtime documented in this encounter [facility] 07-06-2025 History of Presen t illness Narrative Images from the original note were not included. [facility] Follow up/ Established patient visit Recording using Ventario software for draft documentation of the visit was discussed with the patient/authorized sales representative livestock; all questions welcomed and answered. Patient/authorized sales representative livestock agreed to proceed Assessment/Plan from last visit: [...] activity was identified. 07/06/2025 by Indiana Brown APRN.FIBERGLASS ROLLER Patient Questionnaires Sleep Scores 07/06/2025 Sleep Questions Reason for visit: Restless Legs Syndrome On average, hours of sleep in 24 hours: 7 Accidents or near accidents due to drowsy drivin 07/06/2025 Coalgood Sleepiness Scale Score 9 (No clinically significant [...] Advised to monitor symptoms and contact via IdeaPainthart if RLS or insomnia worsen or if additional intervention is needed. Indiana Brown APRN.FIBERGLASS ROLLER documented in this encounter [facility] 07-06-2025 Note HNO ID: [id number] Author: INDIANA BROWN APRN.BRITTNEY Service: ? Author Type: Nurse Practitioner Type: Progress Notes Filed: 07/06/2025 13:14 Note Text: [facility] Follow up/ Established patient visit Recording using Ventario software for draft documentation of the visit was discussed with the patient/authorized sales representative livestock; all questions welcomed and answered. Patient/authorized sales representative livestock agreed to proceed Assessment/Plan from last visit: [...] mos, sooner if sxs worsen Indiana Brown APRN.FIBERGLASS ROLLER CURRENT VISIT: 07/06/2025 The patient is a [...] activity was identified. 07/06/2025 by Indiana Brown APRN.FIBERGLASS ROLLER Patient Questionnaires Sleep Scores 07/06/2025 Sleep Questions Reason for visit: Restless Legs Syndrome On average, hours of sleep in 24 hours: 7 Accidents or near accidents due to drowsy drivin 07/06/2025 Coalgood Sleepiness Scale Score 9 (No clinically significant [...] Comments Pravastatin Othe (more content not included)... [facility] 07-05-2025 Discharge summary [facility] 07-05-2025 Discharge summary Note Date/Time July 05, 2025 2:22pm [facility] Medical Records Department [address] [place] [address] Emergency Department Summary 07/05/25 MR#: [id number] Acct: [id number] Name: BALDO GRANT Rep #:[id number] : 1940 85 From: Carlton Vasquez MD [...] 60s. She was awake at that time. [facility] Medical History Osteopenia Hyperlipidemia Migraines Back problem Arthritis Seasonal allergies Hypertension Home Medications ?Medication ?Instructions ?Recorded ?Last Taken ?Type biotin 5 mg tablet 3 mg PO BID 07/18/19 Unknown History calcium 600 mg (as 1 ea PO DAILY supplement Unknown History carbonate)-vitamin D3 10 mcg (400 unit) tablet ezetimibe 10 mg tablet 10 mg PO DAILY cholesterol 0 07/18/19 Unknown History bjxdtbgg-ald-gecj-FA-Ca carb-vit K 1 ea PO DAILY vitam [...] (Reviewed 09/05/21 @ 15:20 by Linda Dougherty TRANSVERSE ABDOMINAL MUSCLE NURSE, TRANSVERSE ABDOMINAL MUSCLE NURSE-C) Father Myocardial infarction Brother Pancreatic cancer Sister [...] % (Auto) 52.8 Lymph % (Auto) 34.2 Logan % (Auto) 9.9 Eos % (Auto) 0.8 [...] Negative for acute cardiopulmonary disease. Reading Location: [id number] Rhythm Strip Rhythm Strip: Sinus Rhythm Rate: 68 Ectopy: None EKG Initial EKG: Attestation: I personally reviewed and interpreted this EKG as follows: Interpretation: Sinus Rhythm and No Acute Injury Pattern Comments: Nml axis & intervals; nml EKG Management Discussion w/another healthcare provider: Rhia (Cardiology) Discharge Plan Triage Chief Complaint: Syncope [...] 5 MG tablet 3 mg PO BID vk-ci-eiep-FA-Ca carb-vit K 1 EACH tablet 1 ea PO DAILY lisinopril 5 mg tablet 5 mg PO DAILY pregabalin 150 mg capsule 150 mg PO DAILY Ajovy Autoinjector 225 mg/1.5 mL auto-injector 225 mg SUBCUT Q30D Primary Care Provider: Ruapli Cline Referrals: Rupali Cline DO [Primary Care Provider] - Darren Rai MD [Med Staff - Active Staff] - As soon as possible Print Language: Slovak Disposition Disposition: Home, Self Care What to do if you have Problems For any increased pain, shortness of breath, bleeding, nausea or vomiting, chestpain, or any unexpected problems, contact your Primary Care Provider. Call [facility] ([phone]) or report to the closest Emergency Room. Call 911 if necessary. 07/05/25 1422 <Electronically signed by Carlton Vasquez MD> Cosigner Signature (if applicable): CC: Dr. Rupali Cline DO; Dr. Darren Rai MD ~ Signed [facility] Work Phone: 1(835) 501-673209-07-2025 Radiology Diagnostic study note [facility] Imaging Services [address] [place], [place] [address] Chest 1 View (Portable) MR#: [id number] Acct: [id number] Name: BALDO GRANT Rep #: [id number] : 1940 F 85 From: Darren Trujillo MD PCP: Dr. Rupali Cline DO Status: REG ER Study:Chest 1 View (Portable) Date of Exam: 07/05/25 Exam# [id number] Ordering Dr: Juan Jose Vasquez MD PROCEDURE: [...] Negative for acute cardiopulmonary disease. Reading Location: [id number] CC: Dr. Carlton Vasquez MD; Dr. Rupali Cline, DO ~ Lead Ramp Agent: Signed [facility]08-20-2025 Telephone encounter Note* Telephone Encounter - Indiana Brown APRN.CNP - 06/17/2025 12:00 PM EDT Noted thanks Indiana Brown APRN.CNP [facility]08-20-2025 Miscellaneous Notes* Telephone Encounter - Indiana Brown [...] Torey Brown to advise. documented in this encounterHolzer Health System08-20-2025 Telephone encounter Note * Telephone Encounter - Jacque Taylor LPN - 06/17/2025 10:24 AM EDT TC to Pt. She stated to hold off on ordering any Gabapentin till her appt. on 07/06/25. Jacque Taylor LPN [facility]08-20-2025 Miscellaneous Notes* Telephone Encounter - Jacque Taylor LPN - 06/17/2025 10:24 AM EDT TC to Pt. She stated to hold off on ordering any Gabapentin till her appt. on 07/06/25. Jacque Taylor LPN documented in this encounterHolzer Health System08-20-2025 Telephone encounter Note * Telephone Encounter - Jacque Taylor LPN - 06/17/2025 10:11 AM EDT Answered I another phone encounter. Jacque Taylor LPN [facility]08-20-2025 Miscellaneous Notes* Telephone Encounter - Jacque Taylor LPN - 06/17/2025 10:11 AM EDT Answered I another phone encounter. Jacque Taylor LPN documented in this encounterHolzer Health System08-20-2025 Telephone encounter Note * Telephone Encounter - Jacque Taylor LPN - 06/17/2025 10:10 AM EDT Patient notified of update, verbalizes understanding of instructions. Pt stated she will lower her Gabapentin to one a day. Jacque Taylor LPN [facility]08-20-2025 Telephone encounter Note* Telephone Encounter - Indiana Brown APRN.BRITTNEY - 06/17/2025 5:56 AM EDT Yes, that is fine to try the lower dose. Gabapentin can cause grogginess or fogginess. I see she has follow up 9/8/25. Indiana Brown APRN.FIBERGLASS ROLLER [facility]08-19-2025 Telephone encounter Note* Telephone Encounter - Evelyn Graham RN - 06/16/2025 3:09 PM EDT Patient calls to check on status of request below. Notified patient request is pending review and once we have a message to give her from provider we will contact her back. Patient verbalized understanding. Evelyn Graham RN [facility]08-18-2025 Telephone encounter Note* Telephone Encounter - Jacque Taylor LPN - 06/15/2025 9:01 AM EDT Last OV 11/17/24. Jacque Taylor LPN [facility]08-15-2025 Telephone encounter Note* Telephone Encounter - Anders [...] evening. Pt asking Torey Brown to advise. [facility]07-21-2025 Telephone encounter Note* Telephone Encounter - Jacque Taylor LPN - 05/18/2025 4:24 PM EDT Appeal letter faxed to [facility] Team. Jacque Taylor LPN [facility]07-21-2025 Miscellaneous Notes* Telephone Encounter - Jacque Taylor LPN - 05/18/2025 4:24 PM EDT Appeal letter faxed to [facility] Team. Jacque Taylor LPN * Telephone Encounter - Indiana Brown APRN.CNP - 05/18/2025 10:30 AM EDT Please print appeal letter so I can sign for Nidra by Louis Brown APRN.BRITTNEY documented in this encounterHolzer Health System07-21-2025 Telephone encounter Note * Telephone Encounter - Indiana Brown APRN.CNP - 05/18/2025 10:30 AM EDT Please print appeal letter so I can sign for Nidra by Louis Brown APRN.BRITTNEY [facility]04-14-2025 Telephone encounter Note* Telephone Encounter - Enmanuel Phipps RN - 02/09/2025 1:22 PM EDT Ambulatory Pharmacy Prior Authorization Note Provider Intervention Required?: No - Pharmacy completed on your behalf. Was the PA documented within the ePA workqueue?: Yes View the status history of the prior authorization in the Auth Tab within Chart Review Additional Information: For questions relating to this submission, please contact [facility] at [phone] [facility] Work Phone: [phone] Miscellaneous Notes* Telephone Encounter - Enmanuel Phipps RN - 02/09/2025 1:22 PM EDT Ambulatory Pharmacy Prior Authorization Note Provider Intervention Required?: No - Pharmacy completed on your behalf. Was the PA documented within the ePA workqueue?: Yes View the status history of the prior authorization in the Auth Tab within Chart Review Additional Information: For questions relating to this submission, please contact [facility] at [phone] documented in this encounterHolzer Health System04-09-2025 Telephone encounter Note * Telephone Encounter - [...] every month. Do not shake. Pharmacy Name: [facility] ISAI Nelson [facility]04-09-2025 Miscellaneous Notes* Telephone Encounter - Bessie Nelson [...] MIRNA ALEX Bessie Nelson documented in this encounterHolzer Health System04-08-2025 History of Present illness Narrative* Deann Bhat [...] PATIENT PRESENTS WITH AN IMPLANTABLE OR ATTACHED RAIL CAR OPERATOR: No RADIOLOGY DEPARTMENT: Mammography PERIPHERAL IV DATA: Not applicable SIGNED BY: Ned Cruz February 03, 2025 11:42 AM documented in this encounterHolzer Health System04-08-2025 NoteHNO ID: [id number] Author: DEANN BHAT Mammo Tech Service: ? [...] PATIENT PRESENTS WITH AN IMPLANTABLE OR ATTACHED RAIL CAR OPERATOR: No RADIOLOGY DEPARTMENT: Mammography PERIPHERAL IV DATA: Not applicable SIGNED BY: Ned Cruz February 03, 2025 11:42 [facility]03-24-2025 Telephone encounter Note* Telephone Encounter - [...] EVERY MONTH. DO NOT SHAKE. Pharmacy Name: [facility] Adelaide David [facility]03-24-2025 Miscellaneous Notes* Telephone Encounter - Adelaide David - 01/19/2025 9:47 AM EDT Physician: Tremaine Call from pharmacy requesting refill. Please E-Scribe Last OV: 11/21/2023 with Tremaine Future OV: 04/01/2025 with Tremaine Requested Prescriptions Pending Prescriptions Disp Refills AIMOVIG AUTOINJECTOR 140 mg/mL auto-injector [Pharmacy Med Name: AIMOVIG 140 MG/ML AUTOINJECTOR] 3 Sig: INJECT 1 ML SUBCUTANEOUSLY ONCE EVERY MONTH. DO NOT SHAKE. Pharmacy Name: [facility] Adelaide David documented in this encounterHolzer Health System01-20-2025 History of Present illness Narrative* Indiana Brown, RICH.FIBERGLASS ROLLER - 11/17/2024 11:30 AM EST Images from the original note were not included. [facility] Follow up/ Established patient [...] for snoring and witnessed apneas Indiana Brown APRN.FIBERGLASS ROLLER Here for follow up for RLS New [...] due to drowsy drivin 06/09/2024 09/16/2024 11/16/2024 Coalgood Sleepiness Scale Score 1 (No clinically significant [...] mos, sooner if sxs worsen Indiana Brown APRN.FIBERGLASS ROLLER documented in this encounterHolzer Health System01-20-2025 NoteHNO ID: [id number] Author: INDIANA BROWN APRN.FIBERGLASS ROLLER Service: ? Author Type: Nurse Practitioner Type: Progress Notes Filed: 11/17/2024 12:15 Note Text: [facility] Follow up/ Established patient [...] for snoring and witnessed apneas Indiana Brown APRN.FIBERGLASS ROLLER Here for follow up for RLS New [...] accidents due to drowsy drivin 06/09/2024 09/16/202411/1611/16/2024 Coalgood Sleepiness Scale Score 1 (No clinically significant [...] (restless legs syndrome) (lucía (more content not included)...[facility]11-27-2024 Telephone encounter Note* Telephone Encounter - Mack Mills LPN - 09/24/2024 2:48 PM EST No email response received regarding Nidra device. Mack Mills LPN September 24, 2024 2:49 PM [facility]11-27-2024 Miscellaneous Notes* Telephone Encounter - Mack Mills [...] PM EST Confidential email sent to Nidra sales representative livestock to check on status of appeal. MARIBEL Rosales * Telephone Encounter - Indiana Brown APRN.CNP - 09/17/2024 4:27 PM EST Is there any update on her Nidra appeal? Thanks, Indiana Brown APRN.FIBERGLASS ROLLER documented in this encounterHolzer Health System11-25-2024 Telephone encounter Note * Telephone Encounter - Analilia Murillo OCCA - 09/22/2024 7:24 AM EST Email response has not been received as of this time. MARIBEL Rosales [facility]11-21-2024 Telephone encounter Note* Telephone Encounter - Analilia Murillo OCCA - 09/18/2024 1:31 PM EST Confidential email sent to Nidra sales representative livestock to check on status of appeal. MARIBEL Rosales [facility]11-20-2024 Telephone encounter Note* Telephone Encounter - Indiana Brown APRN.BRITTNEY - 09/17/2024 4:27 PM EST Is there any update on her Nidra appeal? Thanks, Indiana Brown APRN.FIBERGLASS ROLLER [facility]11-20-2024 Telephone encounter Note* Telephone Encounter - Leigha [...] LAYLA CHERRY Pharmacy Information Pharmacy Address Telephone [facility]/pharmacy #[id number] [address] [place] [address] Leigha Casarez RN [facility]11-20-2024 Miscellaneous Notes* Telephone Encounter - Leigha Casarez [...] LAYLA CHERRY Pharmacy Information Pharmacy Address Telephone [facility]/pharmacy #[id number] [address] [place] [address] Leigha Casarez RN * Telephone [...] antibiotics. Layla Cherry APRN.CNM documented in this encounterHolzer Health System11-20-2024 Telephone encounter Note * Telephone Encounter - Layla Cherry APRN.CNM - 09/17/2024 3:53 PM EST Yes, will send in Rx for Macrobid 100 mg PO BID x 5 days. Layla Cherry APRN.CNM [facility]11-20-2024 Telephone encounter Note* Telephone Encounter - Kourtney Gutierrez RN - 09/17/2024 2:21 PM EST Patient notified. She is questioning if she could be started on an antibiotic now instead of waiting then switching it if needed? She stated she is very miserable with her symptoms. Kourtney Gutierrez RN [facility]11-20-2024 Telephone encounter Note* Telephone Encounter - Leigha Casarez RN - 09/17/2024 1:35 PM EST Left message to call office. Leigha Casarez RN [facility]11-20-2024 Telephone encounter Note* Telephone Encounter - Leigha Casarez RN - 09/17/2024 1:35 PM EST ----- Message from Layla Cherry APRN.CNM sent at 09/17/2024 1:08 PM EST ----- Results reviewed. Please notify patient that urine was sent for culture and will notify if needs treated with antibiotics. Layla Cherry APRN.CNM [facility]11-20-2024 NoteHNO ID: [id number] Author: LAYLA CHERRY APRN.CNM Service: ? Author Type: Paper And Pulp Mill Operator Type: Progress Notes Filed: 09/17/2024 13:07 Note Text: Patient over 30 minutes late for appointment and provider out of office at hospital. Patient C/O frequency and urgency with urination. Requesting urine to be sent for testing. [facility] History of Present illness Narrative* Layla Cherry APRN.CNM - 09/17/2024 1:05 PM EST Patient over 30 minutes late for appointment and provider out of office at hospital. Patient C/O frequency and urgency with urination. Requesting urine to be sent for testing. Layla Cherry APRN.CNM documented in this encounterHolzer Health System11-20-2024 History of Present illness Narrative* Indiana Brown APRN.CNP - 09/17/2024 11:00 AM EST Images from the original note were not included. [facility] Follow up/ Established patient [...] stimulation Follow up 3 mos Indiana Stephanie, SAS PROGRAMMER ANALYST.FIBERGLASS ROLLER Here for follow up for RLS Doesn't [...] daughter is Conchita Vasquez who works in [employer]--and has told her she likely has RAMIRO. [...] due to drowsy drivin 03/13/2024 06/09/2024 09/16/2024 Coalgood Sleepiness Scale Score 3 (No clinically significant [...] which included preparing to see the patient, qcxm-tu-evlb patient care, completing clinical documentation, counseling and educating the patient/family/caregiver, and ordering medications, tests, or procedures. documented in this encounterHolzer Health System11-20-2024 NoteHNO ID: [id number] Author: INDIANA BROWN APRN.CNP Service: ? Author Type: Nurse Practitioner Type: Progress Notes Filed: 09/17/2024 14:43 Note Text: [facility] Follow up/ Established patient [...] stimulation Follow up 3 mos Indiana Brown APRN.FIBERGLASS ROLLER Here for follow up for RLS Doesn't [...] daughter is Conchita Vasquez who works in [employer]--and has told her she likely has RAMIRO. [...] due to drowsy drivin 03/13/2024 06/09/2024 09/16/2024 Coalgood Sleepiness Scale Score 3 (No clinically significant [...] delightful 84 year o (more content not included)...[facility]11-20-2024 Telephone encounter Note* Telephone Encounter - Leigha Casarez RN - 09/17/2024 9:18 AM EST Patient notified and voiced understanding. Appointment scheduled. FYI. Leigha Casarez RN [facility]11-20-2024 Miscellaneous Notes* Telephone Encounter - Leigha Casarez [...] has an appointment at 11am at the [facility] with neuro and would like to stop at the lab then. Orders pending if okay or does she need an appointment? Kourtney Gutierrez RN documented in this encounterHolzer Health System11-20-2024 Telephone encounter Note * Telephone Encounter - Indiana Auguste MD - 09/17/2024 9:06 AM EST needs appointment for rx. Can stop in here after and see CP for visit. Indiana Auguste MD [facility] Work Phone: 1(761) 388-937511-20-2024 Telephone encounter Note* Telephone Encounter - Kourtney Gutierrez RN - 09/17/2024 8:19 AM EST Patient calling c/o UTI symptoms. Having urinary urgency, frequency, lower back pain and dysuria. Stated that she gets these frequently in the past and asking for lab orders to be placed. She has an appointment at 11am at the [facility] with neuro and would like to stop at the lab then. Orders pending if okay or does she need an appointment? Kourtney Gutierrez RN [facility]09-24-2024 NoteHNO ID: [id number] Author: IND[place] AUGUSTE MD Service: ? Author Type: Physician Type: Progress Notes Filed: 07/22/2024 09:08 Note Text: José Miguel is a 84 year old who presents for an annual gynecologic exam without elevator dispatcher c/o.. Last Pap: 02/08/2011 normal HPV: 09/29/2005 negative History of abnormal pap: No Last mammogram: 2023 normal OB History T0 L4 SAB0 IAB0 Ectopic0 Multiple0 Live Births0 Corporate Quality Manager History LMP: 10/29/1996, Postmenopausal Age at Menarche: Age at First : Age at Menopause: Corporate Quality Manager History Comments: Sexual Activity: Yes; Male [...] discussed with the Patient or Patient's Authorized Estate Tax Examiner. As applicable, any other physician, advance practice provider, medical student, or other health professional student that will be observing or involved in the sensitive examination for educational or training purposes was discussed with the Patient or Authorized Estate Tax Examiner. The Patient or Authorized Estate Tax Examiner has agreed to proceed with the sensitive [...] external genitalia normal, normal Bartholin's glands, urethra, Chatsworth's glands, no vulvar lesions, physiologic discharge present, normal appearing perineal body and perianal region, cervix surgically absent, cystocele 3rd degree, rectocele 1st degree, atrophic flattened epithelium BIMANUAL: no adnexal masses, non-tender, and uterus surgically absent RECTOVAGINAL: deferred. ASSESSMENT/PLAN: 1) Health maintenance: Pap/HPV screening no longer needed Mammogram ordered BMD: up to date 2) Follow up one year or sooner as needed Indiana Auguste [facility]09-24-2024 History of Present illness Narrative* Indiana Auguste MD - 07/22/2024 8:40 AM EDT José Miguel is a 84 year old who presents for an annual gynecologic exam without elevator dispatcher c/o.. Last Pap: 02/08/2011 normal HPV: 09/29/2005 negative History of abnormal pap: No Last mammogram: 2023 normal OB History T0 L4 SAB0 IAB0 Ectopic0 Multiple0 Live Births0 Corporate Quality Manager History LMP: 10/29/1996, Postmenopausal Age at Menarche: Age at First : Age at Menopause: Corporate Quality Manager History Comments: Sexual Activity: Yes; Male [...] discussed with the Patient or Patient's Authorized Estate Tax Examiner. As applicable, any other physician, advance practice provider, medical student, or other health professional student that will be observing or involved in the sensitive examination for educational or training purposes was discussed with the Patient or Authorized Estate Tax Examiner. The Patient or Authorized Estate Tax Examiner has agreed to proceed with the sensitive [...] external genitalia normal, normal Bartholin's glands, urethra, Chatsworth's glands, no vulvar lesions, physiologic discharge present, [...] needed Indiana Auguste MD documented in this encounterHolzer [facility] System08-19-2024 History of Present illness Narrative* Indiana Brown APRN.FIBERGLASS ROLLER - 06/16/2024 10:00 AM EDT Images from the original note were not included. [facility] Follow up/ Established patient [...] suspiciousactivity was identified. 06/16/2024 by Indiana Brown APRN.[facility] SLEEP HYGIENE QUESTIONS: Bedtime : 10-11 [...] accidents due to drowsy drivin 03/13/2024 06/09/2024 Coalgood Sleepiness Scale Score 3 (No clinically significant [...] Appeal is in process for Nidra by [employer] wearable device for neuromuscular stimulation Follow up 3 mos Indiana Brown APRN.FIBERGLASS ROLLER documented in this encounterHolzer Health System08-12-2024 Telephone encounter Note * Telephone Encounter - Bo Ferguson Racheal - 06/09/2024 2:21 PM EDTFrom: Baldo Grant To: Office of Babatunde Penaloza MD Sent: 06/09/2024 1:12 PM EDT Subject: Medication Renewal Request Refills have been requested for the following medications: erenumab-aooe (AIMOVIG AUTOINJECTOR) 140 mg/mL auto-injector [Babatunde Penaloza MD] Preferred pharmacy: [id number] [place] [address] [address] [facility] [phone] Delivery method: Pickup [facility]08-12-2024 Miscellaneous Notes* Telephone Encounter - Bo FergusonRacheal - 06/09/2024 2:21 PM EDTFrom: Baldo Grant To: Office of Babatunde Penaloza MD Sent: 06/09/2024 1:12 PM EDT Subject: Medication Renewal Request Refills have been requested for the following medications: erenumab-aooe (AIMOVIG AUTOINJECTOR) 140 mg/mL auto-injector [Babatunde Penaloza MD] Preferred pharmacy: [facility] [address] [place] [address] [address] [place] [phone] Delivery method: Pickup documented in this encounterHolzer Health System05-20-2024 Telephone encounter Note * Telephone Encounter - Quiana Tejeda LPN - 03/17/2024 12:54 PM EDT Faxed Rx to 43 pages to [facility] [phone] [facility] 03/17/2024. Quiana Tejeda LPN [facility]05-20-2024 Miscellaneous Notes* Telephone Encounter - Quiana Tejeda LPN - 03/17/2024 12:54 PM EDT Faxed Rx to 43 pages to [facility] [phone] [facility] 03/17/2024. Quiana Tejeda LPN documented in this encounterHolzer Health System05-20-2024 Telephone encounter Note * Telephone Encounter - Quiana Tejeda LPN - 03/17/2024 10:18 AM EDT Faxed OV with Torey Brown on 03/17/[address] [facility] [address] [facility] [phone]. Quiana Tejeda LPN [facility]05-20-2024 Miscellaneous Notes* Telephone Encounter - Quiana Tejeda LPN - 03/17/2024 10:18 AM EDT Faxed OV with Torey Brown on 03/17/[address] [facility] [address] [phone]. Quiana Tejeda LPN documented in this encounterHolzer Health System05-20-2024 History of Present illness Narrative* Indiana Brown APRN.FIBERGLASS ROLLER - 03/17/2024 10:00 AM EDT Images from the original note were not included. [facility] Follow up/ Established patient [...] suspiciousactivity was identified. 03/17/2024 by Indiana Brown APRN.FIBERGLASS ROLLER PATIENT-ENTERED QUESTIONNAIRE SLEEP SCORES 03/13/2024 Sleep Questions Reason for visit: Restless Legs Syndrome On average, hours of sleep in 24 hours: 7 Accidents or near accidents due to drowsy drivin 03/13/2024 Coalgood Sleepiness Scale Score 3 (No clinically significant [...] mos Indiana Brown APRN.CNP documented in this encounterHolzer Health System05-20-2024 Instructions* Patient Instructions* Indiana Brown APRN.CNP - 03/17/2024 9:49 AM EDT Labs today for iron stores Stop morning dose of pramipexole We will send prescription for Nidra wearable device by [employer] documented in this encounterHolzer Health System04-05-2024 Miscellaneous Notes* Letter - Coordinator, [facility] - 02/01/2024 2:01 PM EDT February 01, 2024 PID: [id number] Baldo Grant [address] [place] [address] Dear Ms. Grant, We are pleased to [...] report will be kept on file at [facility] as part of your permanent medical record and are available for your continuing care. Thank you for allowing us to help in meeting your health care needs. Sincerely, Dr. Michael Interpreting Radiologist [facility] (Normal over 40) documented in this encounterHolzer Health System04-04-2024 History of Present illness Narrative* Padilla Gallardo [...] PATIENT PRESENTS WITH AN IMPLANTABLE OR ATTACHED RAIL CAR OPERATOR: No RADIOLOGY DEPARTMENT: Bone Density PERIPHERAL IV DATA: Not applicable SIGNED BY: RT Ophelia(R) January 31, 2024 8:16 AM documented in this encounterHolzer Health System04-04-2024 History of Present illness Narrative* Emy Stern [...] PATIENT PRESENTS WITH AN IMPLANTABLE OR ATTACHED RAIL CAR OPERATOR: No RADIOLOGY DEPARTMENT: Mammography PERIPHERAL IV DATA: Not applicable SIGNED BY: Ned Westbrook January 31, 2024 7:49 AM documented in this encounterHolzer Health System02-20-2024 Telephone encounter Note * Telephone Encounter - [...] with plan of care. Quiana Tejeda LPN [facility]02-20-2024 Miscellaneous Notes* Telephone Encounter - Quiana Tejeda [...] care. Quiana Tejeda LPN documented in this encounterHolzer Health System02-13-2024 Miscellaneous Notes* Telephone Encounter - Mildred Muhammad [...] Pharmacy [facility]: [facility] documented in this encounterHolzer Health System08-25-2023 Miscellaneous Notes* Telephone Encounter - Lola Zambrano RN - 06/22/2023 12:32 PM EDT Provider: Shane Baum CNP pharmacy requesting refill via [employer]. Last OV: 03/08/2023 Future OV: None Scheduled Last prescribed: 04/13/2023 Requested Prescriptions Pending Prescriptions Disp Refills pramipexole (MIRAPEX) 0.5 mg tablet [Pharmacy Med Name: PRAMIPEXOLE 0.5 MG TABLET] 60 tablet 2 Sig: TAKE 1/2 TABLET IN AM AND 1 TABLET IN PM Request sent to provider to review. Thank you! documented in this encounterHolzer Health System08-04-2023 Miscellaneous Notes* Telephone Encounter - Mirna Baum APRN.BRITTNEY - 06/01/2023 3:15 PM EDT PDMP website checked and validated. All prescriptions have been APPROPRIATELY filled. No suspiciousactivity was identified. June 01, 2023 Mirna Baum APRN.FIBERGLASS ROLLER * Telephone Encounter - Anne Ashford LPN [...] Dr. Penaloza as previously scheduled. Mirna Baum APRN.FIBERGLASS ROLLER documented in this encounterHolzer Health System08-04-2023 Miscellaneous Notes* Telephone Encounter - Joshua Clemons [...] Pharmacy Name: [facility] documented in this encounterHolzer Health System06-16-2023 Miscellaneous Notes* Telephone Encounter - Maddie Rodas MA - 04/13/2023 12:47 PM EDT Per provider, sig reads: Take 1/2 tablet in the am and 1 tablet in the pm. Spoke with pharmacy and advised of provider's message. documented in this encounterHolzer Health System06-12-2023 History of Present illness Narrative* Shakira Connor [...] prn Alessandro Nelson DPM Podiatry [address] [facility] [address] Dept: [phone] Dept * Shakira Connor LPN - 04/09/2023 [...] scale. Shakira Connor LPN documented in this encounterHolzer Health System06-12-2023 Instructions* Patient Instructions* Alessandro Nelson - 04/09/2023 2:37 PM EDT Powerstep Original Full length. Can purchase at [employer] here in [place], [employer] in [place] or [place]. Also can find in [employer] in [facility]. Powersteps can also be purchased online, [...] re-evaluated and/or additional treatments. documented in this encounterHolzer Health System06-12-2023 History of Present illness Narrative* Maria Alejandra [...] 10, 2023 11:18 AM documented in this encounterHolzer Health System06-06-2023 Miscellaneous Notes* Telephone Encounter - Enmanuel Phipps RN - 04/03/2023 3:03 PM EDT Ambulatory Pharmacy Prior Authorization Note Provider Intervention Required?: No- Pharmacy completed on your behalf. Rx Plan: [facility] Drug: Aimovig 140MG/ML auto-injectors Cover My Meds [place]: [id number] Determination: Approved Prior Authorization/Case #: [id number] Prior Authorization Expiration: 04/02/24 Time to PA [...] refills. Prescriptions will now be processed through [facility] for determination of next steps. For questions relating to this submission, please contact [facility] at [phone] documented in this encounterHolzer Health System05-11-2023 History of Present illness Narrative* Mirna Baum, RICH.FIBERGLASS ROLLER - 03/08/2023 10:00 AM EDT Images from the original note were not included. [facility] [place] Follow-up Visit Follow-up note March 08, 2023 [...] occasional tingling in her legs in the nut cracker. She would like to further attempt to [...] DATE OF EXAM: Dec 28 2021 4:31PM [facility] 0294 - MRI BRAIN WO IVCON / [...] which included preparing to see the patient, xeav-qo-uqub patient care, completing clinical documentation, obtaining and/or reviewing separately obtained history, performing a medically appropriate examination, counseling and educating the pat ient/family/caregiver, and ordering medications, tests, or procedures. documented in this encounterHolzer Health System04-25-2023 Miscellaneous Notes* Telephone Encounter - Indiana Rothman [...] this department: 05/18/2022 Babatunde Penaloza MD Last [place] [facility] health visit in this department: [...] 0 Indiana Rothman RPh documented in this encounterHolzer Health System03-29-2023 Miscellaneous Notes* Telephone Encounter - Mildred Muhammad - 01/24/2023 3:16 PM EDT Physician: Tremaine Call from patient requesting refill. Please E-Scribe Last office visit 11/23/22 with Tremaine dickens Next office visit Not scheduled. Requested Prescriptions Pending Prescriptions Disp Refills SUMAtriptan (IMITREX) 100 mg tablet 10 tablet 6 Sig: Take 1 tablet by mouth as needed (Migraine). Pharmacy Name: [facility] documented in this encounterHolzer Health System03-21-2023 Miscellaneous Notes* Letter - Mammography Coordinator - 01/16/2023 2:19 PM EDT January 17, 2023 PID: [id number] Baldo Grant [address] [place] [address] Dear Ms. Grant, We are pleased to [...] report will be kept on file at [facility] as part of your permanent medical record and are available for your continuing care. Thank you for allowing us to help in meeting your health care needs. Sincerely, Dr. Michael Interpreting Radiologist [facility] (Normal over 40) documented in this encounterHolzer Health System03-20-2023 History of Present illness Narrative* Mirna Burton [...] 15, 2023 10:23 AM documented in this encounterHolzer Health System02-20-2023 Miscellaneous Notes* Telephone Encounter - Anne Ashford [...] was identified. December 18, 2022 Mirna Baum APRN.FIBERGLASS ROLLER * Telephone Encounter - Anne Ashford LPN [...] occasional tingling in her legs in the nut cracker. She would like to further attempt to [...] Keep follow up as scheduled. Mirna Baum APRN.FIBERGLASS ROLLER documented in this encounterHolzer Health System01-26-2023 History of Present illness Narrative* Babatunde Penaloza [...] Patient and/or parent(s) verbally consented to visit. [facility] [place] Follow up visit History of Present Illness: [...] this appointment visit was 20 minutes of wgyr-hp-durh time with the patient. At least 50% of this time was spent in counseling, explanation of diagnosis, planning of further management, and coordination of care. Portions of this note have been composed using voice recognition and may contain plating and point assembly supervisor errors Babatunde Penaloza M.D. [facility] Associate Staff Department of Neurology Referring provider: Babatunde Penaloza [address] [facility] [address] Primary care provider: Mary Azar [address] [place] [address] documented in this encounterHolzer Health System12-12-2022 Miscellaneous Notes* Telephone Encounter - Gayle Gomez [...] [facility] [place] * Telephone Encounter - Gayle Gomez LPN - 10/09/2022 10:55 AM EST ----- Message from Indiana Auguste MD sent at 10/09/2022 10:20 AM EST ----- Let her know + urine culture. Get pharmacy preference and I will send in rx. Indiana Auguste MD documented in this encounterHolzer Health System12-07-2022 Miscellaneous Notes* Addendum Note - Indiana Auguste MD - 10/04/2022 2:47 PM ESTAddended by: INDIA[place] AUGUSTE on: 10/04/2022 02:47 PM Modules accepted: Orders * Addendum Note - Jannet Wells Ma - 10/04/2022 2:10 PM ESTAddended by: JANNET WELLS MA on: 10/04/2022 02:10 PM Modules accepted: Orders documented in this encounterHolzer Health System12-07-2022 Instructions* Patient Instructions* Jannet Wells Ma - [...] your usual activities immediately. documented in this encounterHolzer Health System12-07-2022 History of Present illness Narrative* Indiana Auguste [...] L4 SAB0 IAB0 Ectopic0 Multiple0 Live Births0 Corporate Quality Manager History LMP: 10/29/1996, Postmenopausal Age at Menarche: Age at First : Age at Menopause: Corporate Quality Manager History Comments: Sexual Activity: Yes; Male [...] external genitalia normal, normal Bartholin's glands, urethra, Chatsworth's glands, no vulvar lesions, no cervical lesions, [...] measures Indiana Auguste MD documented in this encounterHolzer Health System10-27-2022 Evaluation + Plan note* Assessment & Plan Note - Pavan James MD - 08/24/2022 1:33 PM EDT Associated Problem(s): Incomplete uterine prolapse Remains relatively asymptomatic, demonstrates appropriate bladder emptying. Continue to monitor. She will call with additional concerns. Otherwise will be reevaluated in 1 year. [id number] Miscellaneous Notes* Assessment & Plan Note - Pavan James MD - 08/24/2022 1:33 PM EDTAssociated Problem(s): Incomplete uterine prolapse Remains relatively asymptomatic, demonstrates appropriate bladder emptying. Continue to monitor. She will call with additional concerns. Otherwise will be reevaluated in 1 year. documented in this [id number] History of Present illness Narrative* Pavan James [...] NOT EDITED TO EXPEDITE. documented in this [id number] Miscellaneous Notes* Telephone Encounter - Dionna Bearden - 08/21/2022 4:25 PM EDT Sent Locket message to José Miguel to assist in rescheduling appointment. Thank you, Dionna Bearden documented in this encounterHolzer Health System09-02-2022 Miscellaneous Notes* Telephone Encounter - Mariana Simons [...] occasional tingling in her legs in the nut cracker. She would like to further attempt to [...] and forwarded to Mirna Baum APRN. BRITTNEY. Mariaan Simons RN June 30, 2022 9:20 AM documented in this encounterHolzer Health System08-19-2022 History of Present illness Narrative* Mirna Baum APRN.BRITTNEY - 06/16/2022 3:30 PM EDT Images from the original note were not included. [facility] [place] Follow-up Visit Follow-up note June 16, 2022 [...] DATE OF EXAM: Dec 28 2021 4:31PM [facility] 0294 - MRI BRAIN WO IVCON / [...] occasional tingling in her legs in the nut cracker. She would like to further attempt to [...] which included preparing to see the patient, nwlp-tw-abmi patient care, completing clinical documentation, obtaining and/or reviewing separately obtained history, performing a medically appropriate examination, counseling and educating the pat ient/family/caregiver, and ordering medications, tests, or procedures. documented in this encounterHolzer Health System07-21-2022 Instructions* Patient Instructions* Babatunde Penaloza MD - 05/18/2022 4:21 PM EDT Continue Aimovig Continue Imitrex as needed Contact me if a repeat nerve block needed Follow up in 6 months documented in this encounterHolzer Health System07-21-2022 History of Present illness Narrative* Babatunde Penaloza MD - 05/18/2022 4:16 PM EDT [facility] [place] Follow up visit History of Present Illness: [...] this appointment visit was 30 minutes of znkz-on-zrgn time with the patient. At least 50% of this time was spent in counseling, explanation of diagnosis, planning of further management, and coordination of care. Portions of this note have been composed using voice recognition and may contain plating and point assembly supervisor errors Babatunde Penaloza M.D. [facility] Associate Staff Department of Neurology Referring provider: Babatunde Penaloza [address] [facility] [address] Primary care provider: Mary Azar [address] [place] [address] documented in this encounterHolzer Health System06-06-2022 Miscellaneous Notes* Telephone Encounter - Mirna Baum [...] CECIL Class: C-V LALITHA: No Pharmacy Name: [facility] Pharmacy Phone #: [phone] Yudi Brown 01/19/22 Assessment/Plan: G25.81 RLS (restless [...] clinic as previously scheduled. documented in this encounterHolzer Health System06-03-2022 Miscellaneous Notes* Telephone Encounter - Yudi Brown Pss - 03/31/2022 11:36 AM EDT Called the patient and scheduled for follow-up appointment. documented in this encounterHolzer Health System04-11-2022 Miscellaneous Notes* Telephone Encounter - Mirna Baum [...] appt in three months. documented in this encounterHolzer Health System03-02-2022 NoteHNO ID: [id number] Author: RT Rory(R) Service: Radiology Author Type: [...] Linda Burns RT(R) December 28, 2021 4:[facility] Miscellaneous Notes* Assessment & Plan Note - Pavan James MD - 08/17/2021 11:37 AM EDT Associated Problem(s): Cystocele, midline Stable, with mild bother symptoms and a normal postvoid residual she elects for continued observation. Precautions were reviewed. Return to the office in 1 year or as needed. documented in this [id number] History of Present illness Narrative* Pavan James [...] NOT EDITED TO EXPEDITE. documented in this encounterUniversity Hospitals Geauga Medical CenterEvaluation note* Diagnosis Cystocele, midline documented in this encounter [facility] note* Diagnosis RLS (restless legs syndrome)- Primary Restless legs syndrome (RLS) documented in this encounter [facility] note* Diagnosis RLS (restless legs syndrome) Restless legs syndrome (RLS) documented in this encounter [facility] note* Diagnosis Migraine without aura and without status migrainosus, not intractable- Primary Migraine without aura, without mention of intractable migraine without mention of status migrainosus documented in this encounter [facility] note* Diagnosis RLS (restless legs syndrome)- Primary Restless legs syndrome (RLS) Intractable episodic headache, unspecified headache type documented in this encounter [facility] note* Diagnosis RLS (restless legs syndrome) Restless legs syndrome (RLS) documented in this encounter [facility] note* Diagnosis RLS (restless legs syndrome) Restless legs syndrome (RLS) documented in this encounter [facility] note* Diagnosis Cystocele, midline- Primary Incomplete uterine prolapse documented in this encounter [facility] noteNo assessment information availableWMercer County Community Hospital Work Phone: Evaluation note* Diagnosis Encounter for gynecological examination (general) (routine) without abnormal findings- Primary Encounter for screening mammogram for breast cancer Encounter for screening for osteoporosis Special screening for osteoporosis Vaginal irritation Unspecified noninflammatory disorder of vagina documented in this encounter [facility] note* Diagnosis RLS (restless legs syndrome) Restless legs syndrome (RLS) documented in this encounter [facility] note* Diagnosis RLS (restless legs syndrome) Restless legs syndrome (RLS) documented in this encounter [facility] note* Diagnosis Migraine without aura and without status migrainosus, not intractable- Primary Migraine without aura, without mention of intractable migraine without mention of status migrainosus documented in this encounter [facility] note* Diagnosis RLS (restless legs syndrome) Restless legs syndrome (RLS) documented in this encounter [facility] note* Diagnosis Pain in right foot- Primary Pain in limb documented in this encounter [facility] note* Diagnosis RLS (restless legs syndrome)- Primary Restless legs syndrome (RLS) Intractable episodic headache, unspecified headache type documented in this encounter [facility] note* Diagnosis Porokeratosis- Primary Other specified congenital anomaly of skin documented in this encounter [facility] note* Diagnosis RLS (restless legs syndrome) Restless legs syndrome (RLS) documented in this encounter [facility] note* Diagnosis Pain in right foot Pain in limb documented in this encounter [facility] note* Diagnosis Encounter for gynecological examination (general) (routine) without abnormal findings Encounter for screening mammogram for breast cancer documented in this encounter [facility] note* Diagnosis At risk for decreased bone density Other specified conditions influencing health status documented in this encounter [facility] note* Diagnosis Encounter for screening mammogram for malignant neoplasm of breast Other screening mammogram [facility]* Diagnosis RLS (restless legs syndrome)- Primary Restless legs syndrome (RLS) documented in this encounter [facility] note* Diagnosis RLS (restless legs syndrome)- Primary Restless legs syndrome (RLS) documented in this encounter [facility] note* Diagnosis Encounter for routine gynecologic examination in Medicare patient- Primary Encounter for screening mammogram for breast cancer documented in this encounter [facility] note* Diagnosis Urinary urgency- Primary Urgency of urination Urinary frequency documented in this encounter [facility] note* Diagnosis RLS (restless legs syndrome)- Primary Restless legs syndrome (RLS) documented in this encounter [facility] note* Diagnosis Urinary frequency- Primary Urinary urgency Urgency of urination Dysuria documented in this encounter [facility] note* Diagnosis RLS (restless legs syndrome)- Primary Restless legs syndrome (RLS) Insomnia, unspecified type documented in this encounter [facility] note* Diagnosis Encounter for routine gynecologic examination in Medicare patient Encounter for screening mammogram for breast cancer documented in this encounter [facility] note* Diagnosis Migraine without aura and without status migrainosus, not intractable- Primary Migraine without aura, without mention of intractable migraine without mention of status migrainosus documented in this encounter [facility] note* Diagnosis RLS (restless legs syndrome)- Primary Restless legs syndrome (RLS) Chronic insomnia Insomnia, unspecified documented in this encounter [facility] for referral (narrative)* Diagnostic Procedure Only [...] CAD Indiana Auguste MD [address] [place] [address] [facility] [address] [place] [phone] Referral ID Status Reason Start Date Expiration Date Visits Requested Visits Authorized [id number] Pending Review Auto-Generat ed Referral 10/04/2022 11/03/2023 1 1 [facility] for referral (narrative)* Diagnostic Procedure Only (Routine) - Pending Review Specialty Diagnoses / Procedures Referred By Contac t Referred To Contact XR IMAGING Diagnoses Pain in right foot Procedures XR FOOT GENERAL 3V AP/LAT/OBL RIGHT RADEX FOOT COMPLETE MINIMUM 3 VIEWS Alessandro Nelson [address] [place] [address] Xr Imaging Referral ID Status Reason Start Date Expiration Date Visits Requested Visits Authorized [id number] Pending Review Auto-Generat ed Referral 02/19/2023 03/20/2024 1 1 [facility] for referral (narrative)* Diagnostic Procedure Only (Routine) - Closed Specialty Diagnoses / Procedures Referred By Contac t Referred To Contact XR IMAGING Diagnoses Pain in right foot Procedures XR FOOT GENERAL 3V AP/LAT/OBL RIGHT RADEX FOOT COMPLETE MINIMUM 3 VIEWS Alessandro Nelson [address] [place] [address] [place] [address] Referral ID Status Reason Start Date Expiration Date V isits Requested Visits Authorized [id number] Closed Auto-Generate d Referral 02/19/2023 03/20/2024 1 1 [facility] for referral (narrative)* Diagnostic Procedure Only [...] Indiana Auguste MD [address] [place] [address] [facility] [address] [place] [address] Referral ID Status Reason Start Date Expiration Date V isits Requested Visits Authorized [id number] Closed Auto-Generate d Referral 10/04/2022 11/03/2023 1 [...] Indiana Solorio MD [address] [place] [address] [facility] Imaging [address] [place] [address] Referral ID Status Reason Start Date Expiration Date Visits Requested Visits Authorized [id number] Authorized Auto-Generat ed Referral 07/22/2024 08/21/2025 1 1 [facility] for referral (narrative)No reason for referral information [facility]er[facility] Work Phone: Reason for visit Narrative* Diagnostic Procedure Only (Routine) - Closed Specialty Diagnoses / Procedures Referred By Shannan oconnor Referred To Contact XR IMAGING Diagnoses Pain in right foot Procedures XR FOOT GENERAL 3V AP/LAT/OBL RIGHT RADEX FOOT COMPLETE MINIMUM 3 VIEWS Alessandro Nelson [address] [place] [address] [place] [address] Referral ID Status Reason Start Date Expiration Date V isits Requested Visits Authorized [id number] Closed Auto-Generate d Referral 02/19/2023 03/20/2024 1 1 [facility] for visit Narrative* Diagnostic Procedure Only (Routine) - Closed Specialty Diagnoses / Procedures Referred By Shannan oconnor Referred To Contact BR IMAGING Diagnoses Encounter for gynecological examination (general) (routine) without abnormal findings Encounter for screening mammogram for breast cancer Procedures DARBY SCREENING W MURTAZA SCREENING DIGITAL BREAST TOMOSYNTHESIS BI SCREENING MAMMOGRAPHY BI 2-VIEW BREAST INC Indiana Solorio MD [address] [place] [address] Br Imaging [address] [place] [address] Referral ID Status Reason Start Date Expiration Date V isits Requested Visits Authorized [id number] Closed Auto-Generate d Referral 10/04/2022 11/03/2023 1 1 [facility] for visit Narrative* Diagnostic Procedure Only (Routine) - Closed Specialty Diagnoses / Procedures Referred By Shannan oconnor Referred To Contact XR IMAGING Diagnoses At risk for decreased bone density Procedures DXA-AXIAL SKELETON Indiana Auguste MD [address] [place] [address] [place] [address] Referral ID Status Reason Start Date Expiration Date V isits Requested Visits Authorized [id number] Closed Auto-Generate d Referral 01/21/2024 02/16/2025 1 1 [facility] for visit Narrative* Diagnostic Procedure Only (Routine) - Closed Specialty Diagnoses / Procedures Referred By Shannan oconnor Referred To Contact BR IMAGING Diagnoses Encounter for screening mammogram for malignant neoplasm of breast Procedures DABRY SCREENING W MURTAZA SCREENING DIGITAL BREAST TOMOSYNTHESIS BI SCREENING MAMMOGRAPHY BI 2-VIEW BREAST INC CAD Indiana Auguste MD [address] [place] [address] [facility] Imaging [address] [place] [address] Referral ID Status Reason Start Date Expiration Date V isits Requested Visits Authorized [id number] Closed Auto-Generate d Referral 01/21/2024 02/16/2025 1 1 [facility] for visit Narrative* Diagnostic Procedure Only (Routine) - Closed Specialty Diagnoses / Procedures Referred By Shannan oconnor Referred To Contact BR IMAGING Diagnoses Encounter for routine gynecologic examination in Medicare patient Encounter for screening mammogram for breast cancer Procedures DARBY SCREENING W MURTAZA SCREENING DIGITAL BREAST TOMOSYNTHESIS BI SCREENING MAMMOGRAPHY BI 2-VIEW BREAST INC CAD Indiana Auguste MD [address] [place] [address] Phone: tel: fax: [facility] [address] [place] [address] Referral ID Status Reason Start Date Expiration Date V isits Requested Visits Authorized [id number] Closed Auto-Generate d Referral 07/22/2024 08/21/2025 1 1 [facility] Summary Purpose Family History No Family History Records Found Relationship Condition Age at Onset Recorded Date/T tu father Myocardial infarction Unknown brother Malignant neoplasm of pancreas Unknown sister Malignant neoplasm of lung Unknown Advance Directives No Advanced Directives Records FoundDocuments on File Type Date Recorded 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 Yes July 05, 2025 9:55am Reason for Referral Specialty Diagnoses / Procedures Referred By Contac t [place]erred [place] [address] [place] [address] Referral ID Status Reason Start Date Expiration Date Visits Re quested Visits Authorized [id number] Closed 1 1 Chief Complaint and Reason for Visit Chief Complaint Admit Date SYNCOPE July 05, 2025 9:45am Additional Source Comments INFORMATION SOURCE (unrecogn ized section and content) DATE CREATED AUTHOR 04/23/2018 [facility] ([place]) DATE CREATED AUTHOR AUTHOR'S ORGANIZ ATION 08/18/2021 [facility] DATE CREATED AUTHOR AUTHOR'S ORGANIZ ATION 12/29/2021 [facility] DATE CREATED AUTHOR AUTHOR'S ORGANIZ ATION 08/29/2022 [facility] DATE CREATED AUTHOR AUTHOR'S ORGANIZ ATION 07/12/2025 [facility] DATE CREATED AUTHOR AUTHOR'S ORGANIZ ATION 07/12/2025 [facility] Care Teams (unrecognized sec tion and content) Margin Clerk Relationship Specialty Start Date End Date Rupali Cline, DO [address] [facility] [place] [address] PCP - General Family Medicine 08/17/20 Margin Clerk Relationship Specialty Start Date End Date Mary Azar DO PCP - General 11/29/09 Margin Clerk Relationship Specialty Start Date End Date Mary Azar DO PCP - General 11/29/09 Margin Clerk Relationship Specialty Start Date End Date Fast Mary A, DO PCP - General 11/29/09 Margin Clerk Relationship Specialty Start Date End Date Fast Mary A, DO PCP - General 11/29/09 Margin Clerk Relationship Specialty Start Date End Date Fast Mary A, DO PCP - General 11/29/09 Margin Clerk Relationship Specialty Start Date End Date Fast Mary A, DO PCP - General 11/29/09 Margin Clerk Relationship Specialty Start Date End Date Rupali Cline, DO [address] [address] [place], [place] [id number] PCP - General Family Medicine 08/17/20 Margin Clerk Relationship Specialty Start Date End Date Rupali Cline, DO [address] [place], [place] [id number] PCP - General Family Medicine 08/17/20 Margin Clerk Relationship Specialty Start Date End Date Doe Mary A, DO PCP - General 11/29/09 Margin Clerk Relationship Specialty Start Date End Date Fast Mary A, DO PCP - General 11/29/09 Margin Clerk Relationship Specialty Start Date End Date Fast, Mary A, DO PCP - General 11/29/09 Margin Clerk Relationship Specialty Start Date End Date Fast, Mary A, DO PCP - General 11/29/09 Margin Clerk Relationship Specialty Start Date End Date Fast, Mary A, DO PCP - General 11/29/09 Margin Clerk Relationship Specialty Start Date End Date FastMary DO PCP - General 11/29/09 Margin Clerk Relationship Specialty Start Date End Date Fast Mary A, DO PCP - General 11/29/09 Margin Clerk Relationship Specialty Start Date End Date Fast Mary A DO PCP - General 11/29/09 Margin Clerk Relationship Specialty Start Date End Date Fast Mary A DO PCP - General 11/29/09 Margin Clerk Relationship Specialty Start Date End Date Mary Azar DO PCP - General 11/29/09 Team Status: Active Member Role Status Dates Dr. Rupali Cline DO Family Provider Active Dr. Rupali Cline DO Primary Care Provider Active Team Status: Inactive Member Role Status Dates Dr. Rupali Cline DO Primary Care Provider, [facility] g Provider Active Margin Clerk Relationship Specialty Start Date End Date Mary Azar DO PCP - General 11/29/09 Margin Clerk Relationship Specialty Start Date End Date Mary Azar DO PCP - General 11/29/09 Margin Clerk Relationship Specialty Start Date End Date Fast Mary A DO PCP - General 11/29/09 Margin Clerk Relationship Specialty Start Date End Date Mary Azar DO PCP - General 11/29/09 Margin Clerk Relationship Specialty Start Date End Date Rupali Cline DO [address] [place] [address] PCP - General Family Medicine 03/17/24 Margin Clerk Relationship Specialty Start Date End Date Rupali Cline [address] [place] [address] PCP - General Family Medicine 03/17/24 Margin Clerk Relationship Specialty Start Date End Date Mary AzarDO PCP - General 11/29/09 03/16/24 SonRupali taiDO [address] [place] [address] PCP - General Family Medicine 03/17/24 Margin Clerk Relationship Specialty Start Date End Date SonRupali baileyDO [address] [place] [address] PCP - General Family Medicine 03/17/24 Margin Clerk Relationship Specialty Start Date End Date SonRupali baileyDO [address] [place] [address] PCP - General Family Medicine 03/17/24 Margin Clerk Relationship Specialty Start Date End Date SonRupaliDO [address] [place] [phone] PCP - General Family Medicine 03/17/24 Margin Clerk Relationship Specialty Start Date End Date Rupali Cline DarrenDO [address] [place] [phone] PCP - General Family Medicine 03/17/24 Margin Clerk Relationship Specialty Start Date End Date Rupali Cline DO [address] [place] [phone] PCP - General Family Medicine 03/17/24 Margin Clerk Relationship Specialty Start Date End Date Rupali Cline DO [address] [place] [phone] PCP - General Family Medicine 03/17/24 Margin Clerk Relationship Specialty Start Date End Date Rupali Cline [address] [place] [phone] PCP - General Family Medicine 03/17/24 Margin Clerk Relationship Specialty Start Date End Date Rupali Cline [address] [place] [phone] PCP - General Family Medicine 03/17/24 Margin Clerk Relationship Specialty Start Date End Date Rupali Cline [address] [place] [phone] PCP - General Family Medicine 03/17/24 Team Status: Active Member Role/Relationship Status Dates Dr. Rupail Cline DO Primary Care Provider Active Team Status: Inactive Member Role/Relationship Status Dates Dr. Rupali Cline DO Primary Care Provider Active Start: July 05, 2025 End: July 05, 2025 Dr. Carlton Vasquez MD Emergency Provider Active Start: July 05, 2025 End: July 05, 2025 Margin Clerk Relationship Specialty Start Date End Date Rupali Cline DO [address] [place] [phone] PCP - General Family Medicine 03/17/24 Source Comments (unrecognize d section and content) In the event this informatio n is protected by the Federal Confidentiality of Alcohol and Drug Abuse Patient Records regulations: The Federal rules restrict any use of the information to criminally investigate or prosecute any alcohol or drug abuse patient.[facility] the event this information is protected by the Federal Confidentiality of Alcohol and Drug Abuse Patient Records regulations: The Federal rules restrict any use of the information to criminally investigate or prosecute any alcohol or drug abuse patient.[facility] SystemIn the event this information is protected by the Federal Confidentiality of Alcohol and Drug Abuse Patient Records regulations: The Federal rules restrict any use of the information to criminally investigate or prosecute any alcohol or drug abuse patient.[facility] System[facility] the event this information is protected by the Federal Confidentiality of Alcohol and Drug Abuse Patient Records regulations: The Federal rules restrict any use of the information to criminally investigate or prosecute any alcohol or drug abuse patient.[facility] the event this information is protected by the Federal Confidentiality of Alcohol and Drug Abuse Patient Records regulations: The Federal rules restrict any use of the information to criminally investigate or prosecute any alcohol or drug abuse patient.[facility] System[facility] the event this information is protected by the Federal Confidentiality of Alcohol and Drug Abuse Patient Records regulations: The Federal rules restrict any use of the information to criminally investigate or prosecute any alcohol or drug abuse patient.[facility] the event this information is protected by the Federal Confidentiality of Alcohol and Drug Abuse Patient Records regulations: The Federal rules restrict any use of the information to criminally investigate or prosecute any alcohol or drug abuse patient.[facility] System[facility] the event this information is protected by the Federal Confidentiality of Alcohol and Drug Abuse Patient Records regulations: The Federal rules restrict any use of the information to criminally investigate or prosecute any alcohol or drug abuse patient.[facility] the event this information is protected by the Federal Confidentiality of Alcohol and Drug Abuse Patient Records regulations: The Federal rules restrict any use of the information to criminally investigate or prosecute any alcohol or drug abuse patient.[facility] the event this information is protected by the Federal Confidentiality of Alcohol and Drug Abuse Patient Records regulations: The Federal rules restrict any use of the information to criminally investigate or prosecute any alcohol or drug abuse patient.[facility] System[facility] the event this information is protected by the Federal Confidentiality of Alcohol and Drug Abuse Patient Records regulations: The Federal rules restrict any use of the information to criminally investigate or prosecute any alcohol or drug abuse patient.[facility] System[facility] the event this information is protected by the Federal Confidentiality of Alcohol and Drug Abuse Patient Records regulations: The Federal rules restrict any use of the information to criminally investigate or prosecute any alcohol or drug abuse patient.[facility] System[facility] the event this information is protected by the Federal Confidentiality of Alcohol and Drug Abuse Patient Records regulations: The Federal rules restrict any use of the information to criminally investigate or prosecute any alcohol or drug abuse patient.[facility] System[facility] the event this information is protected by the Federal Confidentiality of Alcohol and Drug Abuse Patient Records regulations: The Federal rules restrict any use of the information to criminally investigate or prosecute any alcohol or drug abuse patient.[facility] System[facility] the event this information is protected by the Federal Confidentiality of Alcohol and Drug Abuse Patient Records regulations: The Federal rules restrict any use of the information to criminally investigate or prosecute any alcohol or drug abuse patient.[facility] System[facility] the event this information is protected by the Federal Confidentiality of Alcohol and Drug Abuse Patient Records regulations: The Federal rules restrict any use of the information to criminally investigate or prosecute any alcohol or drug abuse patient.[facility] System[facility] the event this information is protected by the Federal Confidentiality of Alcohol and Drug Abuse Patient Records regulations: The Federal rules restrict any use of the information to criminally investigate or prosecute any alcohol or drug abuse patient.[facility] SystemIn the event this information is protected by the Federal Confidentiality of Alcohol and Drug Abuse Patient Records regulations: The Federal rules restrict any use of the information to criminally investigate or prosecute any alcohol or drug abuse patient.[facility] SystemIn the event this information is protected by the Federal Confidentiality of Alcohol and Drug Abuse Patient Records regulations: The Federal rules restrict any use of the information to criminally investigate or prosecute any alcohol or drug abuse patient.[facility] SystemIn the event this information is protected by the Federal Confidentiality of Alcohol and Drug Abuse Patient Records regulations: The Federal rules restrict any use of the information to criminally investigate or prosecute any alcohol or drug abuse patient.[facility] SystemIn the event this information is protected by the Federal Confidentiality of Alcohol and Drug Abuse Patient Records regulations: The Federal rules restrict any use of the information to criminally investigate or prosecute any alcohol or drug abuse patient.[facility] SystemIn the event this information is protected by the Federal Confidentiality of Alcohol and Drug Abuse Patient Records regulations: The Federal rules restrict any use of the information to criminally investigate or prosecute any alcohol or drug abuse patient.[facility] SystemIn the event this information is protected by the Federal Confidentiality of Alcohol and Drug Abuse Patient Records regulations: The Federal rules restrict any use of the information to criminally investigate or prosecute any alcohol or drug abuse patient.[facility] SystemIn the event this information is protected by the Federal Confidentiality of Alcohol and Drug Abuse Patient Records regulations: The Federal rules restrict any use of the information to criminally investigate or prosecute any alcohol or drug abuse patient.[facility] SystemIn the event this information is protected by the Federal Confidentiality of Alcohol and Drug Abuse Patient Records regulations: The Federal rules restrict any use of the information to criminally investigate or prosecute any alcohol or drug abuse patient.[facility] SystemIn the event this information is protected by the Federal Confidentiality of Alcohol and Drug Abuse Patient Records regulations: The Federal rules restrict any use of the information to criminally investigate or prosecute any alcohol or drug abuse patient.[facility] SystemIn the event this information is protected by the Federal Confidentiality of Alcohol and Drug Abuse Patient Records regulations: The Federal rules restrict any use of the information to criminally investigate or prosecute any alcohol or drug abuse patient.[facility] SystemIn the event this information is protected by the Federal Confidentiality of Alcohol and Drug Abuse Patient Records regulations: The Federal rules restrict any use of the information to criminally investigate or prosecute any alcohol or drug abuse patient.[facility] SystemIn the event this information is protected by the Federal Confidentiality of Alcohol and Drug Abuse Patient Records regulations: The Federal rules restrict any use of the information to criminally investigate or prosecute any alcohol or drug abuse patient.[facility] SystemIn the event this information is protected by the Federal Confidentiality of Alcohol and Drug Abuse Patient Records regulations: The Federal rules restrict any use of the information to criminally investigate or prosecute any alcohol or drug abuse patient.[facility] SystemIn the event this information is protected by the Federal Confidentiality of Alcohol and Drug Abuse Patient Records regulations: The Federal rules restrict any use of the information to criminally investigate or prosecute any alcohol or drug abuse patient.[facility] SystemIn the event this information is protected by the Federal Confidentiality of Alcohol and Drug Abuse Patient Records regulations: The Federal rules restrict any use of the information to criminally investigate or prosecute any alcohol or drug abuse patient.[facility] SystemIn the event this information is protected by the Federal Confidentiality of Alcohol and Drug Abuse Patient Records regulations: The Federal rules restrict any use of the information to criminally investigate or prosecute any alcohol or drug abuse patient.[facility] SystemIn the event this information is protected by the Federal Confidentiality of Alcohol and Drug Abuse Patient Records regulations: The Federal rules restrict any use of the information to criminally investigate or prosecute any alcohol or drug abuse patient.[facility] SystemIn the event this information is protected by the Federal Confidentiality of Alcohol and Drug Abuse Patient Records regulations: The Federal rules restrict any use of the information to criminally investigate or prosecute any alcohol or drug abuse patient.[facility] SystemIn the event this information is protected by the Federal Confidentiality of Alcohol and Drug Abuse Patient Records regulations: The Federal rules restrict any use of the information to criminally investigate or prosecute any alcohol or drug abuse patient.[facility] SystemIn the event this information is protected by the Federal Confidentiality of Alcohol and Drug Abuse Patient Records regulations: The Federal rules restrict any use of the information to criminally investigate or prosecute any alcohol or drug abuse patient.[facility] SystemIn the event this information is protected by the Federal Confidentiality of Alcohol and Drug Abuse Patient Records regulations: The Federal rules restrict any use of the information to criminally investigate or prosecute any alcohol or drug abuse patient.[facility] SystemIn the event this information is protected by the Federal Confidentiality of Alcohol and Drug Abuse Patient Records regulations: The Federal rules restrict any use of the information to criminally investigate or prosecute any alcohol or drug abuse patient.[facility] SystemIn the event this information is protected by the Federal Confidentiality of Alcohol and Drug Abuse Patient Records regulations: The Federal rules restrict any use of the information to criminally investigate or prosecute any alcohol or drug abuse patient.[facility] SystemIn the event this information is protected by the Federal Confidentiality of Alcohol and Drug Abuse Patient Records regulations: The Federal rules restrict any use of the information to criminally investigate or prosecute any alcohol or drug abuse patient.[facility] SystemIn the event this information is protected by the Federal Confidentiality of Alcohol and Drug Abuse Patient Records regulations: The Federal rules restrict any use of the information to criminally investigate or prosecute any alcohol or drug abuse patient.[facility] SystemIn the event this information is protected by the Federal Confidentiality of Alcohol and Drug Abuse Patient Records regulations: The Federal rules restrict any use of the information to criminally investigate or prosecute any alcohol or drug abuse patient.[facility] SystemIn the event this information is protected by the Federal Confidentiality of Alcohol and Drug Abuse Patient Records regulations: The Federal rules restrict any use of the information to criminally investigate or prosecute any alcohol or drug abuse patient.[facility] SystemIn the event this information is protected by the Federal Confidentiality of Alcohol and Drug Abuse Patient Records regulations: The Federal rules restrict any use of the information to criminally investigate or prosecute any alcohol or drug abuse patient.[facility] SystemIn the event this information is protected by the Federal Confidentiality of Alcohol and Drug Abuse Patient Records regulations: The Federal rules restrict any use of the information to criminally investigate or prosecute any alcohol or drug abuse patient.[facility] SystemIn the event this information is protected by the Federal Confidentiality of Alcohol and Drug Abuse Patient Records regulations: The Federal rules restrict any use of the information to criminally investigate or prosecute any alcohol or drug abuse patient.[facility] SystemIn the event this information is protected by the Federal Confidentiality of Alcohol and Drug Abuse Patient Records regulations: The Federal rules restrict any use of the information to criminally investigate or prosecute any alcohol or drug abuse patient.[facility] SystemIn the event this information is protected by the Federal Confidentiality of Alcohol and Drug Abuse Patient Records regulations: The Federal rules restrict any use of the information to criminally investigate or prosecute any alcohol or drug abuse patient.[facility] SystemIn the event this information is protected by the Federal Confidentiality of Alcohol and Drug Abuse Patient Records regulations: The Federal rules restrict any use of the information to criminally investigate or prosecute any alcohol or drug abuse patient.[facility] SystemIn the event this information is protected by the Federal Confidentiality of Alcohol and Drug Abuse Patient Records regulations: The Federal rules restrict any use of the information to criminally investigate or prosecute any alcohol or drug abuse patient.[facility] SystemIn the event this information is protected by the Federal Confidentiality of Alcohol and Drug Abuse Patient Records regulations: The Federal rules restrict any use of the information to criminally investigate or prosecute any alcohol or drug abuse patient.[facility] SystemIn the event this information is protected by the Federal Confidentiality of Alcohol and Drug Abuse Patient Records regulations: The Federal rules restrict any use of the information to criminally investigate or prosecute any alcohol or drug abuse patient.[facility] SystemIn the event this information is protected by the Federal Confidentiality of Alcohol and Drug Abuse Patient Records regulations: The Federal rules restrict any use of the information to criminally investigate or prosecute any alcohol or drug abuse patient.[facility] SystemIn the event this information is protected by the Federal Confidentiality of Alcohol and Drug Abuse Patient Records regulations: The Federal rules restrict any use of the information to criminally investigate or prosecute any alcohol or drug abuse patient.[facility] Reason for Visit (unrecogniz ed section and [...] BE BASED ON THE PRIMARY CLINICAL RECORDS. [facility]. provides no warranty or guarantee of the accuracy or completeness of information in this document.
[2025-07-18 05:22] LABS: Mucous, Urine 0 SEEN /hpf (<or=2+); Red Blood Cells-Urine 0 SEEN /hpf (0-5); Squamous Epithelial Cells - UA 0 SEEN /hpf (5-10)
[2025-07-18 05:36] LABS: Color, Urine Yellow (Yellow); Glucose, Dipstick Normal (Normal); Ketone-Dipstick Negative (Negative); Leukocyte Esterase-Dipstick 500 /ul (Negative); Nitrite-Dipstick Negative (Negative); Occult Blood-Urine 10 /ul (Negative); Protein-Dipstick 15 mg/dl (Negative); Specific Gravity, Urine 1.015 (1.002-1.030); Urine Bilirubin Dipstick Negative (Negative)
--- NOTE | 2025-07-18 05:55 | MRI_ITS ---
PROCEDURE: BRAIN W/WO CONTRAST 07/18/2025 REASON FOR EXAM: DIZZINESS, MIGRAINES TECHNIQUE: Procedure Code: [id number] Modality: MR Procedure: BRAIN W/WO CONTRAST Multiplanar and multisequence images were obtained. CONTRAST: Clariscan VOLUME: 14 mL COMPARISON: CT head 07/17/2025. FINDINGS: Brain: FLAIR and T2 images demonstrate scattered foci of nonspecific increased signal in the deep and subcortical white matter. No restricted diffusion. No hemorrhage. No mass-effect or midline shift. The orbits are unremarkable without acute findings. Diffusion: No restricted diffusion. Ventricles: No ventriculomegaly. Major Intracranial Vessels: Patent. Sinuses: Clear. Mastoids: Clear. MRI/Brain W/WO Contrast IMPRESSION: No acute brain abnormalities. No mass lesion or abnormal enhancement. Brain atrophy and white matter changes which are nonspecific but most likely du e to chronic small-vessel ischemia. Reading Location: [id number]
--- NOTE | 2025-07-18 06:41 | PCM.HOSP.N ---
Hospitalist Note UA w/ cloudy urine, LE 500, urine WBC 0-5, 3+, urine culture pending. Will start on IV rocephin in the interim. She does have history of frequent UTIs and she could certainly have chronic colonization.
[2025-07-18 07:22] LABS: AST(SGOT) 17 U/L (<=31); Alanine Aminotransfer ALT/SGPT 21 U/L (<=34); Albumin, Serum 3.6 g/dL (3.4-4.8); Alkaline Phosphatase 61 U/L (35-104); Anion Gap 9 (5-15); BUN 11 mg/dL (4-19); BUN/Creat Ratio 16.2 RATIO (10-20); Calcium,Total 8.8 mg/dL (7.6-11.0); Carbon Dioxide 23.3 mmol/L (21.0-32.0); Chloride 107 mmol/L (98-108); Cholesterol 260 mg/dL (<=200); Estimated Creatinine Clearance 48.26 ml/min (50-250); Globulin 2.4 g/dL (2.2-4.2); Glucose 98 mg/dL (70-99); Low Density Lipoprotein Calc. 186 mg/dL; Potassium 3.9 mmol/L (3.3-5.1); Triglycerides 133 mg/dL; Very Low Density Lipoprotein 27 mg/dL (5-40); cholesterol:hdl ratio screen 5.51
--- NOTE | 2025-07-18 07:55 | PCM.PN.HOSP ---
Reason for Visit Chief Complaint: Dizziness. Subjective Subjective Patient is an 85-year-old lady who presented with dizziness as well as imbalance over the past 2 weeks Objective Data Objective Data Vital Signs: Vital Signs Temp Pulse Resp BP Pulse Ox O2 Del Method 98.4 F 72 16 143/84 H 99 Room Air 07/18/25 07:15 07/18/25 07:15 07/18/25 07:15 07/18/25 07:15 07/18/25 07:15 07/18/25 07:26 Oxygen Delivery Method Room Air Weight: 68.3 kg Body Mass Index (BMI) 27.5 Intake & Output: Intake and Output for Last 24 Hours 07/16/25 07/17/25 07/18/25 23:59 23:59 23:59 Intake Total 139.17 / 139.17 Output Total 500 / 500 Balance -360.83 / -360.83 Lab / Micro Data 07/18/25 06:14 07/18/25 06:14 Labs: Laboratory Results - last 24 hr 07/17/25 22:34: Magnesium 2.3 H 07/17/25 22:48: POC Glucose 109 H 07/17/25 22:54: WBC 5.8, RBC 4.17 L, Hgb 13.4, Hct 39.4, MCV 94.5, MCH 32.1 H, MCHC 34.0, RDW Std Deviation 44.1 H, RDW Coeff of Eliel 12.8, Plt Count 269, MPV 9.4, Immature Gran % (Auto) 0.300, Neut % (Auto) 53.4, Lymph % (Auto) 32.5, [place] % (Auto) 10.0, Eos % (Auto) 2.4, Baso % (Auto) 1.4 H, Absolute Neuts (auto) 3.1, Absolute Lymphs (auto) 1.89, Nucleated RBC % 0, Sodium 141, Potassium 3.9, Chloride 106, Carbon Dioxide 23.9, Anion Gap 11, BUN 13, Creatinine 0.81, Estim Creat Clear Calc 47.73 L, Est GFR (MDRD) Non-Af 72, BUN/Creatinine Ratio 15.4, Glucose 113 H, Calcium 9.8 07/18/25 05:07: Urine Color Yellow, Urine Clarity Cloudy, Urine pH 8.0, Ur Specific [place] 1.015, Urine Protein 15 H, Urine Glucose (UA) Normal, Urine Ketones Negative, Urine Occult Blood 10 H, Urine Nitrite Negative, Urine Bilirubin Negative, Urine Urobilinogen Normal, Ur Leukocyte Esterase 500 H, Urine RBC 0 SEEN, Urine WBC 0-5 SEEN, Ur Squamous Epith Cells 0 SEEN, Amorphous Sediment 2+, Urine Bacteria 3+, Urine Mucus 0 SEEN 07/18/25 06:14: Sodium 139, Potassium 3.9, Chloride 107, Carbon Dioxide 23.3, Anion Gap 9, BUN 11, Creatinine 0.69 L, Estim Creat Clear Calc 48.26 L, Est GFR (MDRD) Non-Af 86, BUN/Creatinine Ratio 16.2, Glucose 98, Hemoglobin A1c 5.6, Calcium 8.8, Total Bilirubin 0.28, AST 17, ALT 21, Alkaline Phosphatase 61, Total Protein 6.0, Albumin 3.6, Globulin 2.4, Albumin/Globulin Ratio 1.5, Triglycerides 133, Cholesterol 260 H, LDL Cholesterol, Calc 186, VLDL Cholesterol 27, HDL Cholesterol 47, Cholesterol/HDL Ratio 5.51 Radiography Diagnostic Testing: Radiology Impression Brain CT 07/17/25 23:01 IMPRESSION: No evidence of acute intracranial pathology. Mild volume loss and moderate chronic small-vessel ischemic changes. Reading Location: [facility] Head/Neck CTA 07/18/25 01:35 IMPRESSION: Atherosclerosis without high-grade stenosis. Reading Location: [place] [id number] Rhythm Strip Rhythm Strip: Sinus Rhythm Rate: 83 Ectopy: None Physical Exam Narrative GENERAL: cooperative HEENT: Atraumatic; normocephalic EYES; Anicteric, Normal Conjunctiva NECK; supple, normal thyroid, RESPIRATORY: Diminished to auscultation CARDIOVASCULAR: Regular S1 S2, GI: soft, normoactive bowel sounds, : No Renal angle tenderness; EXTREMITIES: No edema, no clubbing, MUSCULOSKELETAL: no muscle wasting NEURO: Awake; no lateralizing signs. SKIN: No Rash PSYCH; Flat affect Assessment & Plan Assessment/Plan (1) Dysequilibrium: PLAN: Plan Patient is an 85-year-old lady who presented with dizziness as well as imbalance over the past 2 weeks 1. Dizziness ? Patient symptoms have been ongoing for the past 2 weeks intermittent in nature. Admitted to a monitored bed as part of her workup MRI ordered to rule out posterior circulation CVA consult also placed to [facility]. Patient also had CTA 2D echo ordered and permissive hypertension protocol followed pending stroke being ruled out ? Patient MRI was negative for acute CVA. Patient was seen in consultation by [facility] neuro assessment was patient had a complex migraine and plan is for patient to follow-up with primary neurologist for subsequent eval 2. Essential hypertension ? Currently being managed with permissive hypertension protocol 3. Dyslipidemia ? Patient is on his Antiminth 4. Restless leg syndrome ? Patient is on pramipexole 5. Anemia ? Secondary to chronic disorder monitoring H&H and transfuse if patient becomes symptomatic or hemoglobin falls below 7 6. Abnormal urinalysis ? Patient did admit to frequent UTIs but denied any symptoms at this DVT prophylaxis ? On enoxaparin Time spent in the patient's overall evaluation,decision-making process, review of diagnostic data, adjustment of management, discussion with other providers, nursing nursing and ancillary staff involved in patient's care documentation, 35 Minutes Charges/Coding Visit Charges Inpatient E&M: 49508 Subs Hosp L2 NIHSS NIHSS Nursing Documentation NIHSS Nursing Documentation: NIHSS: Ischemic Stroke/TIA Start: 07/18/25 02:02 Text: For PCU Patients: NIH and Neuro Check every 4 Status: Active hours, PRN and with change in RN caregiver. Freq: [id number] Protocol: Activity Type Activity Date Activity User E-sign Co-sign Detail Recorded Client Recorded Date Recorded By Document 07/18/25 07:15 KG [id number] 07/18/25 07:41 KG 07/18/25 07:15 NIH Stroke Scale [NIHSS] A score of 0 is normal or asymptomatic . Total possible score is 42. Inpatient: RN or Physician to activate a stroke alert for onset of new stroke symptoms or with NIHSS increase >/= 3 points. Following change in neurological status, NIHSS will be performed per physician order or more frequently PRN. -1a. Level of Consciousness 0 - Alert; keenly responsive -1b. LOC Questions 0 - Answers BOTH questions correctly -1c. LOC Commands 0 - Performs BOTH tasks correctly -2. Best Gaze 0 - Normal -3. Visual 0 - No visual loss -4. Facial Palsy 0 - Normal symmetrical movements -5a. Left Arm 0 - No drift; arm holds 90 ( or 45) degrees for full 10 seconds -5b. Right Arm 0 - No drift; arm holds 90 ( or 45) degrees for full 10 seconds -6a. Left Leg 0 - No drift; leg holds 30- degree position for full 5 seconds -6b. Right Leg 0 - No drift; leg holds 30- degree position for full 5 seconds -7. Limb Ataxia 0 - Absent -8. Sensory 0 - Normal; no sensory loss -9. Best Language 0 - No aphasia; normal -10. Dysarthria 0 - Normal -11. Extinction and Inattention 0 - No abnormality -Total 0 Query Text:A score of 0 is normal or asymptomatic. Total possible score is 42 . ED: Notify Physician for NIHSS increase by > / = 3 points. Inpatient: RN or Physician to activate a stroke alert for NIHSS increase of > / = 3 points. Coma Scale [Assess] -Eye Opening Spontaneous -Motor Obeys Commands -Verbal Oriented [Total] -Coma Scale Total 15
[2025-07-18 08:14] LABS: Hematocrit 34.9 % (37-47); Hemoglobin 11.8 g/dL (12.0-15.0); Immature Granulocytes Count 0.010 X10^3/uL (0.0-0.0); Mean Corp Hgb Conc 33.8 g/dL (32-36); Mean Corpuscular Volume 94.3 fL (81-99); Mean Platelet Vol. 9.9 fl (6.2-12.0); NRBC Flagged by Analyzer 0 % (0-5); Platelet Count 238 K/mm3 (150-450); RBC Distribution Width CV 12.8 % (11.6-14.6); RBC Distribution Width SD 44.3 fl (35.1-43.9); Red Blood Count 3.70 M/mm3 (4.2-5.4); White Blood Count 4.9 K/mm3 (4.4-11.0)
--- NOTE | 2025-07-18 12:42 | CASEMGMT ---
Social Work Pt completed PHQ-9 w/SW. Pt scored a 5, all symptoms pt relates to what is going on w/her medically, rather than being down or depressed. No resources needed at this time. SW remains available should any resources be needed while pt here. NIKOS Moser
--- NOTE | 2025-07-18 12:56 | DS.PCM_ITS ---
Providers Date of Admission: 07/18/25 Date of Discharge: 07/18/25 Primary Care Physician: Dr. Carlos Tse, DO Consultations 07/18/25 02:02 Consult: Tele-Neurology Routine Consulting Provider: [facility] Reason for Consult: Dizziness EMERGENT Consult: No MD Notified: Yes Date Notified: 07/18/25 Time Notified: 02:30 Method of Notification: Answering Service Nursing Unit Staff Notify [facility] of Tele-Neurology Consult: Yes Reason For Visit: DIZZINESS/IMBALANCE Diagnosis Discharge Diagnosis (1) Dysequilibrium: Status: Acute Code(s): R42 - Dizziness and giddiness Plan Patient is an 85-year-old lady who presented with dizziness as well as imbalance over the past 2 weeks 1. Dizziness ? Patient symptoms have been ongoing for the past 2 weeks intermittent in nature. Admitted to a monitored bed as part of her workup MRI ordered to rule out posterior circulation CVA consult also placed to [facility]. Patient also had CTA 2D echo ordered and permissive hypertension protocol followed pending stroke being ruled out ? Patient MRI was negative for acute CVA. Patient was seen in consultation by [facility] neuro assessment was patient had a complex migraine and plan is for patient to follow-up with primary neurologist for subsequent eval 2. Essential hypertension ? Currently being managed with permissive hypertension protocol 3. Dyslipidemia ? Patient is on his Antiminth 4. Restless leg syndrome ? Patient is on pramipexole 5. Anemia ? Secondary to chronic disorder monitoring H&H and transfuse if patient becomes symptomatic or hemoglobin falls below 7 6. Abnormal urinalysis ? Patient did admit to frequent UTIs but denied any symptoms at this DVT prophylaxis ? On enoxaparin Time spent in the patient's overall evaluation,decision-making process, review of diagnostic data, adjustment of management, discussion with other providers, nursing nursing and ancillary staff involved in patient's care documentation, 35 Minutes Medications at Discharge Home Medications calcium 600 mg (as carbonate)-vitamin D3 10 mcg (400 unit) tablet 1 ea PO DAILY supplement 07/18/19 ezetimibe 10 mg tablet 10 mg PO DAILY cholesterol 07/18/19 [id number]-FA-Ca carb-vit K 18 mg iron-400 mcg-500 mg tablet 1 ea PO DAILY vitamin 07/18/19 pramipexole 0.25 mg tablet 0.25 mg PO QHS restless legs 07/18/19 sumatriptan succinate 50 mg tablet 25 mg PO PRN PRN cluster headache 07/18/19 [id number]-vfrm 225 mg/1.5 mL subcutaneous auto-injector (Ajovy) 225 mg subcut Q30D 09/05/21 lisinopril 5 mg tablet 5 mg PO DAILY 09/05/21 Physical Exam Narrative GENERAL: cooperative HEENT: Atraumatic; normocephalic EYES; Anicteric, Normal Conjunctiva NECK; supple, normal thyroid, RESPIRATORY: Diminished to auscultation CARDIOVASCULAR: Regular S1 S2, GI: soft, normoactive bowel sounds, : No Renal angle tenderness; EXTREMITIES: No edema, no clubbing, MUSCULOSKELETAL: no muscle wasting NEURO: Awake; no lateralizing signs. SKIN: No Rash PSYCH; Flat affect Weight / BMI Weight Weight: 68.3 kg Body Mass Index (BMI) 27.5 ABG / Lab / Microbiology Data 07/18/25 06:14 07/18/25 06:14 Laboratory: Laboratory Results - last 24 hr 07/17/25 22:34: Magnesium 2.3 H 07/17/25 22:48: POC Glucose 109 H 07/17/25 22:54: WBC 5.8, RBC 4.17 L, Hgb 13.4, Hct 39.4, MCV 94.5, MCH 32.1 H, MCHC 34.0, RDW Std Deviation 44.1 H, RDW Coeff of Eliel 12.8, Plt Count 269, MPV 9.4, Immature Gran % (Auto) 0.300, Neut % (Auto) 53.4, Lymph % (Auto) 32.5, [place] % (Auto) 10.0, Eos % (Auto) 2.4, Baso % (Auto) 1.4 H, Absolute Neuts (auto) 3.1, Absolute Lymphs (auto) 1.89, Nucleated RBC % 0, Sodium 141, Potassium 3.9, Chloride 106, Carbon Dioxide 23.9, Anion Gap 11, BUN 13, Creatinine 0.81, Estim Creat Clear Calc 47.73 L, Est GFR (MDRD) Non-Af 72, BUN/Creatinine Ratio 15.4, G lucose 113 H, Calcium 9.8 07/18/25 05:07: Urine Color Yellow, Urine Clarity Cloudy, Urine pH 8.0, Ur Specific [place] 1.015, Urine Protein 15 H, Urine Glucose (UA) Normal, Urine Ketones Negative, Urine Occult Blood 10 H, Urine Nitrite Negative, Urine Bilirubin Negative, Urine Urobilinogen Normal, Ur Leukocyte Esterase 500 H, Urine RBC 0 SEEN, Urine WBC 0-5 SEEN, Ur Squamous Epith Cells 0 SEEN, Amorphous Sediment 2+, Urine Bacteria 3+, Urine Mucus 0 SEEN 07/18/25 06:14: WBC 4.9, RBC 3.70 L, Hgb 11.8 L, Hct 34.9 L, MCV 94.3, MCH 31.9, MCHC 33.8, RDW Std Deviation 44.3 H, RDW Coeff of Eliel 12.8, Plt Count 238, MPV 9.9, Immature Gran % (Auto) 0.200, Neut % (Auto) 54.1, Lymph % (Auto) 31.1, [place] % (Auto) 10.7 H, Eos % (Auto) 2.5, Baso % (Auto) 1.4 H, Absolute Neuts (auto) 2.6, Absolute Lymphs (auto) 1.52, Nucleated RBC % 0, Sodium 139, Potassium 3.9, Chloride 107, Carbon Dioxide 23.3, Anion Gap 9, BUN 11, Creatinine 0.69 L, Estim Creat Clear Calc 48.26 L, Est GFR (MDRD) Non-Af 86, BUN/Creatinine Ratio 16.2, Glucose 98, Hemoglobin A1c 5.6, Calcium 8.8, Total Bilirubin 0.28, AST 17, ALT 21, Alkaline Phosphatase 61, Total Protein 6.0, Albumin 3.6, Globulin 2.4, Albumin/Globulin Ratio 1.5, Triglycerides 133, Cholesterol 260 H, LDL Cholesterol, Calc 186, VLDL Cholesterol 27, HDL Cholesterol 47, Cholesterol/HDL Ratio 5.51, TSH 2.250 Radiography Diagnostic Testing: Radiology Impression Brain CT 07/17/25 23:01 IMPRESSION: No evidence of acute intracranial pathology. Mild volume loss and moderate chronic small-vessel ischemic changes. Reading Location: [facility] Head/Neck CTA 07/18/25 01:35 IMPRESSION: Atherosclerosis without high-grade stenosis. Reading [id number] Inst[facility] DC O2, CPAP, BIPAP Needs Home O2 Discharge instructions: No Meaningful Use Info Meaningful Use Meaningful Use Diagnoses (Choose all that apply): None applicable Discharge Plan Admission Admit Date/Time: 07/18/25 00:52 Attending Provider: Lars Mehta Primary Care Provider: Carlos Tse Consulting Providers: Ferny Martinez; Tracey Linton; Rosario Alas; Johanna Antonio; Khushbu Robles; Terell Melgoza; Hayley Renteria; Matti Ramsey; Jaciel Garvin; Loyd Valdovinos; Lashanda Ernandez; Melba More; Alessandro Landon; Jennifer Pickard; Hedy Damon; Hernando Quinteros; Skip Yanez; Clement Kerr; Darrell Palmer; Urmila Hernandez; Fariba Inman; Lupe Olivares Discharge Orders/Prescriptions Prescriptions: Continued sumatriptan succinate 50 MG tablet 25 mg PO PRN PRN (Reason: cluster headache) pramipexole 0.25 MG tablet 0.25 mg PO QHS ezetimibe 10 MG tablet 10 mg PO DAILY calcium carbonate-vitamin D3 1 EACH tablet 1 ea PO DAILY lj-gq-mbvo-FA-Ca carb-vit K 1 EACH tablet 1 ea PO DAILY lisinopril 5 mg tablet 5 mg PO DAILY Ajovy Autoinjector 225 mg/1.5 mL auto-injector 225 mg SUBCUT Q30D Referrals / Follow Up: Carlos Tse DO [Primary Care Provider, Family Practice] - In 1 Week Disposition Disposition (needs filled in before D/C Order can be placed): Home, Self Care Charges/Coding Visit Charges Inpatient E&M: 74703 Disch Hosp >30min
--- NOTE | 2025-07-18 17:13 | NEURO.CONS ---
Assessment and Plan: Neuro Assessment/Plan LEOLA STARK is a 85 F with a past medical history of chronic migraine, being evaluated by Teleneurology for 3 weeks of intermittent dizziness, accompanied by some cephalgia. MRI is very reassuring against stroke and her symptoms are not consistent with TIA or seizure. I believe this represents evolution of her chronic migraine, possibly exacerbated or precipitated by coming off gabapentin. Discussed this with her. Reasonable to talk to outpatien tneurologist about changing migraine meds or considering migraine botox. No Diagnosis: intractable chronic migraine with aura; vertiginous migraine Plan: No further neurological testing needed at this time Follow up with outpatient neurologist Counseled her to avoid using her sumatriptan more than 10 days/month I personally attended this patient and spent a total time of 25 minutes evaluating this patient including clinical assessment, review of chart, medical history imaging, and determining appropriate treatment and workup. Skip Yanez MD Community Living Instructor [facility] Neurology HPI Consult Data Date of Consult: 07/18/25 HPI Narrative HPI Narrative: LEOLA STARK, is a 85 F with history of chronic migraine (on sumatriptan and Aimovig) who presents with 3 weeks of bad days. on close questioning this mostly means vertiginous dizziness.She woke up and the room was moving around. Over this period she has good days and bad days. She strongly correlates sx onset to coming off gabapentin which was for RLS but it has not improved with time. Sx include just not feeling right, and just not as steady on feet, though she has only had one fall, 3-4 weeks ago. She has katy been having migraines (and has one during interview) and though she does not correlate cephalgia strongly to the dizziness, she has in the past had dizziness with migraines. NO prior history of stroke or seizure. Does have questions about botox for migraine [facility] Medical History Osteopenia Hyperlipidemia Migraines Back problem Arthritis Seasonal allergies Hypertension Home Medications ?Medication ?Instructions ?Recorded ?Last Taken ?Type calcium 600 mg (as 1 ea PO DAILY supplement 07/18/19 Unknown History carbonate)-vitamin D3 10 mcg (400 unit) tablet ezetimibe 10 mg tablet 10 mg PO DAILY cholesterol 07/18/19 Unknown History [id number]-Ca carb-vit K 1 ea PO DAILY vitamin 07/18/19 Unknown History 18 mg iron-400 mcg-500 mg tablet pramipexole 0.25 mg tablet 0.25 mg PO QHS restless legs 07/18/19 Unknown History sumatriptan succinate 50 mg tablet 25 mg PO PRN PRN cluster headache 07/18/19 Unknown History fremanezumab-vfrm 225 mg/1.5 mL 225 mg subcut Q30D 09/05/21 Unknown History subcutaneous auto-injector (Ajovy) lisinopril 5 mg tablet 5 mg PO DAILY 09/05/21 Unknown History Allergy/AdvReac Type Severity Reaction Status Date / Time No Known Allergies Allergy Verified 07/17/25 22:34 Family History Father Myocardial infarction Brother Pancreatic cancer Sister Lung cancer Surgical History H/O breast biopsy S/P LEEP (loop electrosurgical excision procedure) H/O tubal ligation Social History household members: spouse Smoking Status: Never smoker alcohol intake: never substance use type: does not use Vital Signs Vital Signs Vital Signs: 07/17/25 22:34 07/17/25 22:43 07/18/25 00:34 Temperature 98.7 F Temperature Source Oral Pulse Rate 99 74 Pulse Rate [Lying] Pulse Rate [Sitting (for 1 minute prior to obtaining)] Pulse Rate [Standing (for 1 minute prior to obtaining)] Respiratory Rate 16 12 Respiratory Effort Respiratory Depth Respiratory Pattern Blood Pressure 142/90 H 149/78 H Blood Pressure [Lying] Blood Pressure [Sitting (for 1 minute prior to obtaining)] Blood Pressure [Standing (for 1 minute prior to obtaining)] Blood Pressure Mean 107 101 Blood Pressure Mean [Lying] Blood Pressure Mean [Sitting (for 1 minute prior to obtaining)] Blood Pressure Mean [Standing (for 1 minute prior to obtaining)] Blood Pressure Source Blood Pressure Position Blood Pressure Location Pulse Ox 96 97 Oxygen Delivery Method Room Air Room Air Room Air 07/18/25 01:41 07/18/25 02:10 07/18/25 02:51 Temperature 98.3 F 96.6 F L Temperature Source Temporal Pulse Rate 74 83 Pulse Rate [Lying] 74 Pulse Rate [Sitting (for 1 minute prior to obtaining)] 79 Pulse Rate [Standing (for 1 minute prior to obtaining)] 87 Respiratory Rate 11 L 18 Respiratory Effort Respiratory Depth Respiratory Pattern Blood Pressure 98/69 151/89 H Blood Pressure [Lying] 141/88 H Blood Pressure [Sitting (for 1 minute prior to obtaining)] 155/81 H Blood Pressure [Standing (for 1 minute prior to obtaining)] 148/95 H Blood Pressure Mean 78 109 Blood Pressure Mean [Lying] 105 Blood Pressure Mean [Sitting (for 1 minute prior to obtaining)] 105 Blood Pressure Mean [Standing (for 1 minute prior to obtaining)] 112 Blood Pressure Source Monitor Blood Pressure Position Semi-Fowlers Blood Pressure Location Left Arm Pulse Ox 98 99 Oxygen Delivery Method Room Air 07/18/25 03:17 07/18/25 06:00 07/18/25 07:15 Temperature 96.6 F L 98.4 F Temperature Source Temporal Oral Pulse Rate 74 72 Pulse Rate [Lying] Pulse Rate [Sitting (for 1 minute prior to obtaining)] Pulse Rate [Standing (for 1 minute prior to obtaining)] Respiratory Rate 18 16 Respiratory Effort Normal Non-Labored Respiratory Depth Normal Respiratory Pattern Normal Blood Pressure 133/73 H 143/84 H Blood Pressure [Lying] Blood Pressure [Sitting (for 1 minute prior to obtaining)] Blood Pressure [Standing (for 1 minute prior to obtaining)] Blood Pressure Mean 93 103 Blood Pressure Mean [Lying] Blood Pressure Mean [Sitting (for 1 minute prior to obtaining)] Blood Pressure Mean [Standing (for 1 minute prior to obtaining)] Blood Pressure Source Monitor Monitor Blood Pressure Position Semi-Fowlers Supine Blood Pressure Location Left Arm Pulse Ox 97 99 Oxygen Delivery Method Room Air Room Air Room Air 07/18/25 07:26 07/18/25 08:07 07/18/25 11:08 Temperature 98.3 F Temperature Source Oral Pulse Rate 73 Pulse Rate [Lying] Pulse Rate [Sitting (for 1 minute prior to obtaining)] Pulse Rate [Standing (for 1 minute prior to obtaining)] Respiratory Rate 14 Respiratory Effort Normal Non-Labored Respiratory Depth Normal Respiratory Pattern Normal Blood Pressure 105/85 H Blood Pressure [Lying] Blood Pressure [Sitting (for 1 minute prior to obtaining)] Blood Pressure [Standing (for 1 minute prior to obtaining)] Blood Pressure Mean 91 Blood Pressure Mean [Lying] Blood Pressure Mean [Sitting (for 1 minute prior to obtaining)] Blood Pressure Mean [Standing (for 1 minute prior to obtaining)] Blood Pressure Source Monitor Blood Pressure Position Supine Blood Pressure Location Pulse Ox 97 Oxygen Delivery Method Room Air Room Air Room Air 07/18/25 16:14 Temperature 98.3 F Temperature Source Oral Pulse Rate 73 Pulse Rate [Lying] Pulse Rate [Sitting (for 1 minute prior to obtaining)] Pulse Rate [Standing (for 1 minute prior to obtaining)] Respiratory Rate 16 Respiratory Effort Respiratory Depth Respiratory Pattern Blood Pressure 129/68 H Blood Pressure [Lying] Blood Pressure [Sitting (for 1 minute prior to obtaining)] Blood Pressure [Standing (for 1 minute prior to obtaining)] Blood Pressure Mean 88 Blood Pressure Mean [Lying] Blood Pressure Mean [Sitting (for 1 minute prior to obtaining)] Blood Pressure Mean [Standing (for 1 minute prior to obtaining)] Blood Pressure Source Monitor Blood Pressure Position Supine Blood Pressure Location Pulse Ox 98 Oxygen Delivery Method Room Air Weight Weight: 68.3 kg Body Mass Index (BMI) 27.5 EEG Results Procedure Details EEG Procedure Details: LEOLA STARK is a 85 year old F with a past medical history of , who presents for evaluation of Electroencephalogram on DATE at TIME Physical Exam Narrative EOMI, face symmetric and strong, tongue midline, no dysathria, vision intact, hearing intact to voice, head rotation intact, strengthy 5/5 at SA,EE,EF,Medical Director/Head Team Physician,HF,KE,DF bilaterally, sensation intact to light touch bilaterally Lab / Micro Data 07/18/25 06:14 07/18/25 06:14 Labs: Laboratory Results - last 24 hr 07/17/25 22:34: Magnesium 2.3 H 07/17/25 22:48: POC Glucose 109 H 07/17/25 22:54: WBC 5.8, RBC 4.17 L, Hgb 13.4, Hct 39.4, MCV 94.5, MCH 32.1 H, MCHC 34.0, RDW Std Deviation 44.1 H, RDW Coeff of Eliel 12.8, Plt Count 269, MPV 9.4, Immature Gran % (Auto) 0.300, Neut % (Auto) 53.4, Lymph % (Auto) 32.5, [place] % (Auto) 10.0, Eos % (Auto) 2.4, Baso % (Auto) 1.4 H, Absolute Neuts (auto) 3.1, Absolute Lymphs (auto) 1.89, Nucleated RBC % 0, Sodium 141, Potassium 3.9, Chloride 106, Carbon Dioxide 23.9, Anion Gap 11, BUN 13, Creatinine 0.81, Estim Creat Clear Calc 47.73 L, Est GFR (MDRD) Non-Af 72, BUN/Creatinine Ratio 15.4, Glucose 113 H, Calcium 9.8 07/18/25 05:07: Urine Color Yellow, Urine Clarity Cloudy, Urine pH 8.0, Ur Specific [place] 1.015, Urine Protein 15 H, Urine Glucose (UA) Normal, Urine Ketones Negative, Urine Occult Blood 10 H, Urine Nitrite Negative, Urine Bilirubin Negative, Urine Urobilinogen Normal, Ur Leukocyte Esterase 500 H, Urine RBC 0 SEEN, Urine WBC 0-5 SEEN, Ur Squamous Epith Cells 0 SEEN, Amorphous Sediment 2+, Urine Bacteria 3+, Urine Mucus 0 SEEN 07/18/25 06:14: WBC 4.9, RBC 3.70 L, Hgb 11.8 L, Hct 34.9 L, MCV 94.3, MCH 31.9, MCHC 33.8, RDW Std Deviation 44.3 H, RDW Coeff of Eliel 12.8, Plt Count 238, MPV 9.9, Immature Gran % (Auto) 0.200, Neut % (Auto) 54.1, Lymph % (Auto) 31.1, [place] % (Auto) 10.7 H, Eos % (Auto) 2.5, Baso % (Auto) 1.4 H, Absolute Neuts (auto) 2.6, Absolute Lymphs (auto) 1.52, Nucleated RBC % 0, Sodium 139, Potassium 3.9, Chloride 107, Carbon Dioxide 23.3, Anion Gap 9, BUN 11, Creatinine 0.69 L, Estim Creat Clear Calc 48.26 L, Est GFR (MDRD) Non-Af 86, BUN/Creatinine Ratio 16.2, Glucose 98, Hemoglobin A1c 5.6, Calcium 8.8, Total Bilirubin 0.28, AST 17, ALT 21, Alkaline Phosphatase 61, Total Protein 6.0, Albumin 3.6, Globulin 2.4, Albumin/Globulin Ratio 1.5, Triglycerides 133, Cholesterol 260 H, LDL Cholesterol, Calc 186, VLDL Cholesterol 27, HDL Cholesterol 47, Cholesterol/HDL Ratio 5.51, TSH 2.250 Rhythm Strip Rhythm Strip: Sinus Rhythm Rate: 83 Ectopy: None Imaging Radiology Impression Brain CT 07/17/25 23:01 IMPRESSION: No evidence of acute intracranial pathology. Mild volume loss and moderate chronic small-vessel ischemic changes. Reading Location: [facility] Head/Neck CTA 07/18/25 01:35 IMPRESSION: Atherosclerosis without high-grade stenosis. Reading Location: [place] [id number] Echocardiogram 07/18/25 02:02 Interpretation Summary Normal LV size. The left ventricular ejection fraction is 65 %. Stage 1 diastolic dysfunction. Echo reverberation noted Adjacent to the mitral annular calcification Of the posterior mitral valve. Mild-Moderate (1-2+) eccentric mitral valve insufficiency. Ordering Physician: Lupe Olivares Referring Physician: Carlos Tse Performed By: Elyse Araujo, RDCS, RVT Brain MRI 07/18/25 05:55 IMPRESSION: No acute brain abnormalities. No mass lesion or abnormal enhancement. Brain atrophy and white matter changes which are nonspecific but most likely due to chronic small-vessel ischemia. Reading Location: [facility] NIHSS NIHSS Nursing Documentation NIHSS Nursing Documentation: NIHSS: Ischemic Stroke/TIA Start: 07/18/25 02:02 Text: For PCU Patients: NIH and Neuro Check every 4 Status: Complete hours, PRN and with change in RN caregiver. Freq: [id number] Protocol: Activity Type Activity Date Activity User E-sign Co-sign Detail Recorded Client Recorded Date Recorded By Document 07/18/25 11:08 KG [id number] 07/18/25 11:11 KG 07/18/25 11:08 NIH Stroke Scale [NIHSS] A score of 0 is normal or asymptomatic . Total possible score is 42. Inpatient: RN or Physician to activate a stroke alert for onset of new stroke symptoms or with NIHSS increase >/= 3 points. Following change in neurological status, NIHSS will be performed per physician order or more frequently PRN. -1a. Level of Consciousness 0 - Alert; keenly responsive -1b. LOC Questions 0 - Answers BOTH questions correctly -1c. LOC Commands 0 - Performs BOTH tasks correctly -2. Best Gaze 0 - Normal -3. Visual 0 - No visual loss -4. Facial Palsy 0 - Normal symmetrical movements -5a. Left Arm 0 - No drift; arm holds 90 ( or 45) degrees for full 10 seconds -5b. Right Arm 0 - No drift; arm holds 90 ( or 45) degrees for full 10 seconds -6a. Left Leg 0 - No drift; leg holds 30- degree position for full 5 seconds -6b. Right Leg 0 - No drift; leg holds 30- degree position for full 5 seconds -7. Limb Ataxia 0 - Absent -8. Sensory 0 - Normal; no sensory loss -9. Best Language 0 - No aphasia; normal -10. Dysarthria 0 - Normal -11. Extinction and Inattention 0 - No abnormality -Total 0 Query Text:A score of 0 is normal or asymptomatic. Total possible score is 42 . ED: Notify Physician for NIHSS increase by > / = 3 points. Inpatient: RN or Physician to activate a stroke alert for NIHSS increase of > / = 3 points. Coma Scale [Assess] -Eye Opening Spontaneous -Motor Obeys Commands -Verbal Oriented [Total] -Coma Scale Total 15
== END 2025-07-18 16:34 | disposition home or self-care (01) ==
LOC: ED 07-18 01:28 → PCU 07-18 01:32
PROVIDERS: Admitting Provider Family Medicine; Emergency Provider Emergency Medicine; PCP Family Medicine; Visit Provider Internal Medicine
DX: R42 Dizziness and giddiness (principal); R41.0 Disorientation, unspecified; G25.81 Restless legs syndrome; G43.719 Chronic migraine without aura, intractable, without status migrainosus; E78.5 Hyperlipidemia, unspecified; I12.9 Hypertensive chronic kidney disease with stage 1 through stage 4 chronic kidney disease, or unspecified chronic kidney disease; D63.8 Anemia in other chronic diseases classified elsewhere; R82.90 Unspecified abnormal findings in urine; Z79.899 Other long term (current) drug therapy; N18.2 Chronic kidney disease, stage 2 (mild); I08.1 Rheumatic disorders of both mitral and tricuspid valves
CPT/HCPCS: 36415; 70450; 70496; 70498; 70553; 80048; 80053; 80061; 81001; 82962; 83036; 83735; 84443; 85025; 87086; 87088; 87186; 92610; 93005; 93306; 96361; 96365; 96372; 99221; 99285; A9575; Q9967; A4216; G0378